=== PATIENT | female | born 1980 | race Caucasian/White ===

== ENCOUNTER → 2018-08-13 | Outpatient (CLI) | payer MEDICARE, BC, MEDICAID ==
--- NOTE | 2018-08-13 12:14 | Diagnostic Imaging Report ---
INDICATION: Pain. TECHNIQUE: Three views of the left knee were obtained. FINDINGS: The alignment is normal. There is no fracture or dislocation. The soft tissues are unremarkable. IMPRESSION: No focal abnormality in the left knee. Dictated by: Dictated on workstation # [id number]
== END ==
LOC: RAD FS 11:50
PROVIDERS: ATTEND Family Medicine
DX: S89.92XD Unspecified injury of left lower leg, subsequent encounter (principal)
CPT/HCPCS: 73562

== ENCOUNTER 2018-08-15 07:47 | Emergency (ER) | payer MEDICARE, BC, MEDICAID ==
[~2018-08-15] VITALS: Ht 157.5 cm; Wt 69.9 kg
--- OUTSIDE RECORDS SUMMARY | 2018-08-15 07:54 | XMS REPORT ---
Author Author KATHRIN ALEXANDER Organization [employer] Address Unknown Phone Unavailable Care Team Providers Care Street Vendor Name Role Phone KATHRIN ALEXANDER CP Unavailable Allergies No Known Allergies Problems Problem Type Condition ICD-9 Code Onset Dates Condition Status Assessment Dental examination V72.2 Active Medications No Known Medications Procedures Procedure Coding System Code Date INTRAORL-PERIAPICAL 1 FILM 17183 CPT-4 D0220 Jan 11, 2015 PANORAMIC FILM SEE ALSO CODE 73038 CPT-4 D0330 Jan 11, 2015 LTD ORAL EVALUATION - PROBLEM FOCUS CPT-4 D0140 Jan 11, 2015 Results No Known Results Summary Purpose [employer] Submission
--- NOTE | 2018-08-15 08:12 | ED Headache ---
General Stated Complaint: MIGRAINE History of Present Illness Date Seen by Provider: Aug 15, 2018 Time Seen by Provider: 07:57 38 y/o F with history of migraines since age 13 presents with a typical migraine for her that is located around her eyes, feels sharp and radiates along the scalp posteriorly. Headache woke her from sleep. Has associated nausea and vomited x 1. Nothing has improved headache, states every time she gets a migraine she has to come to the ER. Denies photophobia. This is not the worst headache of her life. Allergies and Home Medications Allergies Coded Allergies: zolmitriptan (Unverified Adverse Reaction, Unknown, 08/15/18) Patient Home Medication List Home Medication List Reviewed: Yes Review of Systems Review of Systems Constitutional: No chills, No fever, No weakness Eyes: Denies Blurred Vision, Denies Photophobia Ears, Nose, Mouth, Throat: denies ear pain, denies nose pain, denies mouth pain Respiratory: No cough, No short of breath Cardiovascular: No chest pain, No palpitations Gastrointestinal: No abdominal pain, No nausea, No vomiting Genitourinary: No dysuria, No hematuria Musculoskeletal: No joint pain, No muscle pain, No neck pain Psychiatric/Neurological: Headache; Denies Numbness, Denies Paresthesia, Denies Pre-Existing Deficit, Denies Seizure, Denies Tingling, Denies Tremors, Denies Weakness Past Yymdqag-Qsnoqa-Ayaapc Hx Past Med/Social Hx: Reviewed Nursing Past Med/Soc Hx Patient Social History Recent Foreign Travel: No Contact w/Someone Who Travel: No Physical Exam Vital Signs Capillary Refill : Height, Weight, BMI Height: '" Weight: lbs. oz. kg; BMI Method: General Appearance: WD/WN, no apparent distress HEENT: PERRL/EOMI, normal ENT inspection Neck: non-tender, full range of motion, supple, normal inspection, other (no meningismus) Cardiovascular: normal peripheral pulses, regular rate, rhythm, no edema, no gallop, no JVD, no murmur Respiratory: chest non-tender, lungs clear, normal breath sounds, no respiratory distress, no accessory muscle use Gastrointestinal: normal bowel sounds, non tender, soft, no organomegaly, no pulsatile mass Extremities: normal range of motion, normal inspection, no pedal edema, no calf tenderness, normal capillary refill Psychiatric: alert, oriented x 3 Crainal Nerves: normal hearing, normal speech, PERRL Coordination/Gait: normal finger to nose, normal gait Motor/Sensory: no motor deficit, no sensory deficit, no pronator drift Skin: normal color, warm/dry Progress/Results/Core Measures Results/Orders My Orders Orders - JEN ESCALERA MD Ketorolac Injection (Toradol Injection) (08/15/18 08:15) Dexamethasone Injection (Decadron Inject (08/15/18 08:15) Promethazine Injection (Phenergan Injec (08/15/18 08:15) Medications Given in ED Current Medications Medications Dose Ordered Sig/Hernan Route Start Time Stop Time Status Last Admin Dose Admin Dexamethasone Sodium Phosphate 8 mg ONCE ONCE IM 08/15/18 08:15 08/15/18 08:16 DC 08/15/18 08:20 8 MG Ketorolac Tromethamine 60 mg ONCE ONCE IM 08/15/18 08:15 08/15/18 08:16 DC 08/15/18 08:21 60 MG Promethazine HCl 25 mg ONCE ONCE IM 08/15/18 08:15 08/15/18 08:16 DC 08/15/18 08:20 25 MG Progress Progress Note : Progress Note Patient declines IV. States "they usually give me 3-4 shots in the arm", discussed that the IV would likely be fewer sticks and that we could give IV fluids and additional medications if the initial medications did not work, still refused. Departure Impression Primary Impression: Migraine Disposition: 01 HOME, SELF-CARE Condition: Stable Departure-Patient Inst. Decision time for Depature: 08:35 Referrals: [facility] (PCP) Primary Care Physician ANDREW DONAHUE MD (Family) Primary Care Physician Patient Instructions: Migraine Headache (DC) Add. Discharge Instructions: All discharge instructions reviewed with patient and/or family. Voiced understanding. JEN ESCALERA MD Aug 15, 2018 08:12
[2018-08-15] MEDS ORDERED: DEXAMETHASONE 4 MG/ML SDV (DECADRON) IM ONE (08:15)
[2018-08-15] MEDS ORDERED: PROMETHAZINE INJ 25 MG/ML (PHENERGAN) AMP IM ONE (08:15)
[2018-08-15] MEDS ORDERED: KETOROLAC 60 MG/2 ML VIAL IM ONE (08:15)
[2018-08-15 08:40] VITALS: BP 120/69
== END 2018-08-15 08:40 | disposition home or self-care (01) ==
LOC: EDUNIT# 07:47 → ER FS 07:50
DX: G43.909 Migraine, unspecified, not intractable, without status migrainosus (principal); Z88.8 Allergy status to other drugs, medicaments and biological substances
CPT/HCPCS: 99284

== ENCOUNTER 2018-09-11 08:16 | Emergency (ER) | payer MEDICARE, MEDICAID ==
[~2018-09-11] VITALS: Ht 160 cm; Wt 63.5 kg
--- NOTE | 2018-09-11 08:26 | ED Headache ---
General Stated Complaint: HEADACHE History of Present Illness Date Seen by Provider: Sep 11, 2018 Time Seen by Provider: 08:34 Initial Comments Patient presenting to ED for evaluation of a headache behind both eyes that has been going on for several days. She says she has a history of migraines and this feels exactly the same. Patient has nausea but no vomiting, fevers, chills , weakness, numbness, tingling, or neck stiffness. Patient is in no obvious distress with normal VS. Allergies and Home Medications Allergies Coded Allergies: zolmitriptan (Unverified Adverse Reaction, Unknown, 08/15/18) Patient Home Medication List Home Medication List Reviewed: Yes Review of Systems Review of Systems Constitutional: no symptoms reported All Other Systems Reviewed Negative Unless Noted: Yes Past Lmhyhdi-Ckgakd-Txvsge Hx Patient Social History Recent Hopitalizations: No Immunizations Up To Date Date of Influenza Vaccine: Mar 04, 2018 Seasonal Allergies Seasonal Allergies: Yes Past Medical History Surgeries: Yes Gallbladder Respiratory: No Cardiac: No Neurological: Yes Headaches /Migraines Genitourinary: No Gastrointestinal: No Musculoskeletal: Yes (RLS) HEENT: No Cancer: No Psychosocial: Yes Depression Integumentary: No Blood Disorders: No Physical Exam Vital Signs Vital Signs - First Documented 09/11/18 08:22 Temp 98.8 Pulse 97 Resp 20 B/P (MAP) 121/83 (96) Pulse Ox 99 Capillary Refill : Height, Weight, BMI Height: 5'2.00" Weight: 154lbs. oz. 69.258598cd; BMI Method:Stated General Appearance: WD/WN HEENT: PERRL/EOMI Neck: non-tender, full range of motion Cardiovascular: normal peripheral pulses, regular rate, rhythm Respiratory: no respiratory distress, no accessory muscle use Psychiatric: alert, oriented x 3 Skin: normal color, warm/dry Progress/Results/Core Measures Results/Orders My Orders Orders - JAM MARIE DO Promethazine Injection (Phenergan Injec (09/11/18 08:30) Dexamethasone Injection (Decadron Inject (09/11/18 08:30) Ketorolac Injection (Toradol Injection) (09/11/18 08:30) Diphenhydramine Tablet (Benadryl Tablet) (09/11/18 08:45) Vital Signs/I&O 4/10/19 08:22 Temp 98.8 Pulse 97 Resp 20 B/P (MAP) 121/83 (96) Pulse Ox 99 Progress Progress Note : Progress Note Patient is requesting same cocktail she received last time. She said she went home and slept and woke up better. I see no reason for further testing in ED. I told her to return with worsening pain, fevers, vomiting, or other general concerns. Departure Impression Primary Impression: Migraine Disposition: 01 HOME, SELF-CARE Condition: Stable Departure-Patient Inst. Decision time for Depature: 08:32 Referrals: [facility] (PCP) Primary Care Physician ANDREW DONAHUE MD (Family) Primary Care Physician Patient Instructions: Migraine Headache (DC) JAM MARIE DO Sep 11, 2018 08:26
[2018-09-11] MEDS ORDERED: DEXAMETHASONE 4 MG/ML SDV (DECADRON) IM ONE (08:30)
[2018-09-11] MEDS ORDERED: KETOROLAC 60 MG/2 ML VIAL IM ONE (08:30)
[2018-09-11] MEDS ORDERED: PROMETHAZINE INJ 25 MG/ML (PHENERGAN) AMP IM ONE (08:30)
[2018-09-11] MEDS ORDERED: diphenhydrAMINE 25 MG TAB (BENADRYL) PO ONE (08:45)
[2018-09-11 08:56] VITALS: BP 113/90
== END 2018-09-11 09:00 | disposition home or self-care (01) ==
LOC: EDUNIT# 08:16 → ER FS 08:17
DX: G43.909 Migraine, unspecified, not intractable, without status migrainosus (principal); G25.81 Restless legs syndrome; F32.9 Major depressive disorder, single episode, unspecified; Z88.8 Allergy status to other drugs, medicaments and biological substances
CPT/HCPCS: 99284

== ENCOUNTER 2018-09-18 06:18 | Emergency (ER) | payer MEDICARE, MEDICAID ==
[~2018-09-18] VITALS: Ht 160 cm; Wt 63.5 kg
--- NOTE | 2018-09-18 06:22 | ED Headache ---
General Stated Complaint: MIGRAINE Source: patient Exam Limitations: no limitations History of Present Illness Date Seen by Provider: Sep 18, 2018 Time Seen by Provider: 06:26 38 y/o F with history of migraines presents with typical migraine for her that started around 0530 this morning. She was at rest. This is not the worst headache of her life. It was gradual in onset and has been worsening in the frontal region without radiation. Improved with rest, worse with exertion and lights. Has associated photophobia and nausea. Denies fever, chills, neck pain or stiffness. Allergies and Home Medications Allergies Coded Allergies: zolmitriptan (Unverified Adverse Reaction, Unknown, 08/15/18) Patient Home Medication List Home Medication List Reviewed: Yes Review of Systems Review of Systems Constitutional: No chills, No dizziness, No fever, No weakness Eyes: Denies Blurred Vision; Photophobia Ears, Nose, Mouth, Throat: denies ear pain, denies nose discharge Respiratory: No cough, No short of breath Cardiovascular: No chest pain, No palpitations Gastrointestinal: No abdominal pain; nausea; No vomiting Genitourinary: No frequency, No hematuria Musculoskeletal: No muscle pain, No muscle weakness Skin: No lesions, No rash Psychiatric/Neurological: Headache; Denies Numbness Past Uaadrih-Urhasm-Yhgddj Hx Past Med/Social Hx: Reviewed Nursing Past Med/Soc Hx Patient Social History 2nd Hand Smoke Exposure: No Recent Foreign Travel: No Contact w/Someone Who Travel: No Recent Hopitalizations: No Immunizations Up To Date Date of Influenza Vaccine: Mar 04, 2018 Seasonal Allergies Seasonal Allergies: Yes Past Medical History Surgeries: Yes Gallbladder Respiratory: No Cardiac: No Neurological: Yes Headaches /Migraines Genitourinary: No Gastrointestinal: No Musculoskeletal: Yes (RLS) HEENT: No Cancer: No Psychosocial: Yes Depression Integumentary: No Blood Disorders: No Physical Exam Vital Signs Vital Signs - First Documented 09/18/18 06:36 Temp 97.8 Pulse 112 Resp 14 B/P (MAP) 107/85 (92) Pulse Ox 94 O2 Delivery Room Air Capillary Refill : Height, Weight, BMI Height: 5'3.00" Weight: 140lbs. oz. 63.451525pz; BMI Method:Stated General Appearance: WD/WN, no apparent distress HEENT: PERRL/EOMI, normal ENT inspection, TMs normal, pharynx normal Neck: non-tender, full range of motion, supple, normal inspection Cardiovascular: regular rate, rhythm, no edema, no gallop, no JVD, no murmur Respiratory: chest non-tender, lungs clear, normal breath sounds, no respiratory distress, no accessory muscle use Gastrointestinal: normal bowel sounds, non tender, soft, no organomegaly, no pulsatile mass Extremities: normal range of motion, non-tender, normal inspection, no pedal edema, no calf tenderness Psychiatric: alert, oriented x 3 Crainal Nerves: normal hearing, normal speech, PERRL Coordination/Gait: normal finger to nose, normal gait Motor/Sensory: no motor deficit, no sensory deficit, no pronator drift Skin: normal color, warm/dry Progress/Results/Core Measures Results/Orders My Orders Orders - JEN ESCALERA MD Ketorolac Injection (Toradol Injection) (09/18/18 06:45) Dexamethasone Injection (Decadron Inject (09/18/18 06:45) Promethazine Injection (Phenergan Injec (09/18/18 06:45) Diphenhydramine Injection (Benadryl Inje (09/18/18 06:45) Medications Given in ED Current Medications Medications Dose Ordered Sig/Hernan Route Start Time Stop Time Status Last Admin Dose Admin Dexamethasone Sodium Phosphate 8 mg ONCE ONCE IM 09/18/18 06:45 09/18/18 06:46 DC 09/18/18 06:51 8 MG Diphenhydramine HCl 25 mg ONCE ONCE IM 09/18/18 06:45 09/18/18 06:46 DC 09/18/18 06:51 25 MG Ketorolac Tromethamine 60 mg ONCE ONCE IM 09/18/18 06:45 09/18/18 06:46 DC 09/18/18 06:51 60 MG Promethazine HCl 25 mg ONCE ONCE IM 09/18/18 06:45 09/18/18 06:46 DC 09/18/18 06:51 25 MG Vital Signs/I&O 09/18/18 09/18/18 06:36 07:15 Temp 97.8 97.8 Pulse 112 90 Resp 14 16 B/P (MAP) 107/85 (92) 104/81 (89) Pulse Ox 94 96 O2 Delivery Room Air Departure Impression Primary Impression: Migraine headache Disposition: 01 HOME, SELF-CARE Condition: Improved Departure-Patient Inst. Decision time for Depature: 06:40 Referrals: [facility] (PCP) Primary Care Physician ANDREW DONAHUE MD (Family) Primary Care Physician Patient Instructions: Migraine Headaches in Adults JEN ESCALERA MD Sep 18, 2018 06:22
[2018-09-18] MEDS ORDERED: PROMETHAZINE INJ 25 MG/ML (PHENERGAN) AMP IM ONE (06:45)
[2018-09-18] MEDS ORDERED: diphenhydrAMINE 50 MG/ML INJ (BENADRYL) IM ONE (06:45)
[2018-09-18] MEDS ORDERED: KETOROLAC 60 MG/2 ML VIAL IM ONE (06:45)
[2018-09-18] MEDS ORDERED: DEXAMETHASONE 4 MG/ML SDV (DECADRON) IM ONE (06:45)
[2018-09-18 07:15] VITALS: BP 104/81
--- NOTE | 2018-09-18 07:15 | NUR ---
ACTUAL DISCHARGE PER THIS RN.
== END 2018-09-18 07:15 | disposition home or self-care (01) ==
LOC: EDUNIT# 06:18 → ER FS 06:20
DX: G43.909 Migraine, unspecified, not intractable, without status migrainosus (principal); F32.9 Major depressive disorder, single episode, unspecified; G25.81 Restless legs syndrome; Z88.8 Allergy status to other drugs, medicaments and biological substances; Z98.890 Other specified postprocedural states
CPT/HCPCS: 99284

== ENCOUNTER 2018-10-12 03:34 | Emergency (ER) | payer MEDICARE ==
[~2018-10-12] VITALS: Ht 160 cm; Wt 73.5 kg
--- OUTSIDE RECORDS SUMMARY | 2018-10-12 03:40 | XMS REPORT | Continuity of Care Document ---
Author Organization Unknown Address Unknown Allergies There is no data. Medications There is no data. Problems There is no data. Procedures There is no data. Results There is no data. Encounters ACCT No. Visit Date/Time Discharge Status Pt. Type Provider Facility Loc./Unit Complaint [id number] 09/26/2018 11:15:00 09/26/2018 23:59:59 CLS Outpatient SELF, ANDREW DEMPSEY [facility]
[2018-10-12] MEDS ORDERED: KETOROLAC 60 MG/2 ML VIAL IM ONE (04:30)
[2018-10-12] MEDS ORDERED: PROCHLORPERAZINE 10 MG/2ML INJ (COMPAZINE) IM ONE (04:30)
[2018-10-12] MEDS ORDERED: diphenhydrAMINE 50 MG/ML INJ (BENADRYL) IM ONE (04:30)
--- NOTE | 2018-10-12 04:33 | ED Headache ---
General Chief Complaint: Head/Cervical Problems Stated Complaint: MIGRAINE Nursing Triage Note: Patient states her migraine started at 0030 todays date. Patient took zofran. Nursing Sepsis Screen: No Definite Risk Source: patient History of Present Illness Date Seen by Provider: October 12, 2018 Time Seen by Provider: 04:00 Initial Comments Patient is a 38-year-old female with history of frequent migraine headaches currently on Topamax suppressive therapy presents with typical migraine headache starting 4 hours prior to ED arrival. Headache is described as dull, throbbing, and is retro-orbital in location. It is associated with nausea without vomiting. Patient states she typically gets dizzy with migraines and is currently experiencing mild dizziness vertigo. Likely migraine triggers include weather and monthly menstrual cycle which patient is currently on. Patient took Zofran, Excedrin Migraine and nasal spray prior to arrival without improvement. No neck pain, fever, rash, focal neurologic deficits. Patient's been seen in the ED multiple times the past 2 months for the same. Timing/Duration: 4-6 hours Severity/Quality: mild Location: other (retro-orbital) Prior Headaches/Recent Trauma: frequent headaches Associated Symptoms: denies symptoms Allergies and Home Medications Allergies Coded Allergies: zolmitriptan (Unverified Adverse Reaction, Unknown, 08/15/18) Patient Home Medication List Home Medication List Reviewed: Yes Review of Systems Review of Systems Constitutional: see HPI Eyes: See HPI Ears, Nose, Mouth, Throat: see HPI Respiratory: see HPI Cardiovascular: see HPI Genitourinary: see HPI Musculoskeletal: see HPI Skin: see HPI Psychiatric/Neurological: Depressed Past Dlndelb-Jrztxj-Flpejo Hx Past Med/Social Hx: Reviewed Nursing Past Med/Soc Hx Patient Social History Alcohol Use: Denies Use Recreational Drug Use: No Smoking Status: Never a Smoker Type Used: Cigarettes Former Smoker, Quit: October 17, 2017 2nd Hand Smoke Exposure: No Recent Foreign Travel: No Contact w/Someone Who Travel: No Recent Infectious Disease Expo: No Recent Hopitalizations: No Physical Abuse: No Sexual Abuse: No Mistreated: No Fear: No Immunizations Up To Date Date of Influenza Vaccine: Mar 04, 2018 Seasonal Allergies Seasonal Allergies: Yes Past Medical History Surgeries: Yes Gallbladder Respiratory: No Cardiac: No Neurological: Yes Headaches /Migraines Genitourinary: No Gastrointestinal: No Musculoskeletal: Yes (RLS) Endocrine: No HEENT: No Cancer: No Psychosocial: Yes Depression Integumentary: No Blood Disorders: No Physical Exam Vital Signs Vital Signs - First Documented 10/12/18 03:39 Temp 98.1 Pulse 103 Resp 18 B/P (MAP) 120/78 (92) Pulse Ox 98 O2 Delivery Room Air Capillary Refill : Less Than 3 Seconds Height, Weight, BMI Height: 5'3.00" Weight: 162lbs. 0oz. 73.750278sq; BMI Method:Stated General Appearance: WD/WN, no apparent distress HEENT: PERRL/EOMI, normal ENT inspection Neck: non-tender, full range of motion, supple Cardiovascular: normal peripheral pulses Respiratory: lungs clear, normal breath sounds Psychiatric: alert, oriented x 3 Motor/Sensory: no motor deficit, no sensory deficit, other ([place] steady gait) Skin: normal color, warm/dry Progress/Results/Core Measures Results/Orders My Orders Orders - DARCI ECHOLS DO Ketorolac Injection (Toradol Injection) (10/12/18 04:30) Diphenhydramine Injection (Benadryl Inje (10/12/18 04:30) Prochlorperazine Injection (Compazine In (10/12/18 04:30) Vital Signs/I&O 10/12/18 03:39 Temp 98.1 Pulse 103 Resp 18 B/P (MAP) 120/78 (92) Pulse Ox 98 O2 Delivery Room Air Blood Pressure Mean: 92 Departure Communication (Admissions) Typical migraine headache. Toradol, Compazine and Benadryl given with improvement Impression Primary Impression: Migraine Disposition: 01 HOME, SELF-CARE Condition: Improved Departure-Patient Inst. Referrals: [facility] (PCP) Primary Care Physician ANDREW DONAHUE MD (Family) Primary Care Physician Patient Instructions: Migraine Headache (DC) Add. Discharge Instructions: Please go home and rest and follow up with PCP for further management of migraine headaches All discharge instructions reviewed with patient and/or family. Voiced understanding. DARCI ECHOLS DO October 12, 2018 04:33
[2018-10-12 04:47] VITALS: BP 120/78
== END 2018-10-12 04:43 | disposition home or self-care (01) ==
LOC: EDUNIT# 03:34 → ER FS 03:35
DX: G43.909 Migraine, unspecified, not intractable, without status migrainosus (principal); G25.81 Restless legs syndrome; F32.9 Major depressive disorder, single episode, unspecified; Z88.8 Allergy status to other drugs, medicaments and biological substances; Z87.891 Personal history of nicotine dependence; Z98.890 Other specified postprocedural states
CPT/HCPCS: 96372; 99284

== ENCOUNTER 2018-11-23 06:57 | Emergency (ER) | payer MEDICARE ==
[~2018-11-23] VITALS: Ht 160 cm; Wt 73.5 kg
--- OUTSIDE RECORDS SUMMARY | 2018-11-23 07:03 | XMS REPORT ---
Author Author DA WALLS 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 Name Role Phone KAVITANITHYARY Unavailable PROBLEMS Type Condition ICD9-CM Code JNF60-HB Code Onset Dates Condition Status SNOMED Code Problem RLS (restless legs syndrome) G25.81 Active 38979338 Problem Hypokalemia E87.6 Active 32365365 Problem Thrombocytopenia D69.6 Active 443910659 Problem Hirsutism L68.0 Active 599280138 Problem Migraine with aura and without status migrainosus, not intractable G43.109 Active 1317365 Problem Other chronic pain G89.29 Active 64306492 Problem Seasonal allergic reaction J30.2 Active 417441846 Problem Migraine headache G43.909 Active 35301419 Problem Allergic rhinitis J30.9 Active 96228263 Problem Depression F32.9 Active 68390529 Problem Hypothyroidism E03.9 Active 22009334 ALLERGIES No Information ENCOUNTERS Encounter Location Date Diagnosis [address] [address] Jan, [address] [address] Sep, Migraine headache G43.[address] [address] Sep, Migraine headache G43.909 ; Impacted cerumen of left ear H61.22 and Migraine with aura and without status migrainosus, not intractable G43.109 [facility] [address] [facility] [id number] [address] Sep, [address] [address] Sep, Pain in left knee M25.562 and Other chronic pain G89.29 [facility] [address] [address] Sep, [facility] [address] [facility] [id number] [place] [address] Sep, RLS (restless legs syndrome) G25.81 [facility] [address] [place] [address] Aug, Acute pain of left knee M25.562 and RLS (restless legs syndrome) G25.81 [facility] [address] [address] Aug, [address] [address] Aug, RLS (restless legs syndrome) G25.81 and Acute pain of left knee M25.562 [facility] [place] [address] [address] Aug, [facility] [address] [address] Aug, [facility] [address] [place] [address] Aug, Migraine G43.[address] [address] Aug, Depression F32.9 ; Migraine headache G43.909 ; Migraine with aura and without status migrainosus, not intractable G43.109 ; Seasonal allergic reaction J30.2 ; Hypothyroidism E03.9 ; RLS (restless legs syndrome) G25.81 ; Allergic rhinitis J30.9 ; Hirsutism L68.0 ; Thrombocytopenia D69.6 ; Hypokalemia E87.6 and Injury of left knee, subsequent encounter S89.92XD [facility] [address] [place] [address] Aug, [facility] [place] [address] [address] Aug, Left leg pain M79.605 [facility] [address] [place] [address] Aug, [facility] [address] [place] [address] Aug, Left leg pain M79.605 and RLS (restless legs syndrome) G25.[address] [address] Jul, Migraine with aura and without status migrainosus, not intractable G43.109 ; Seasonal allergic reaction J30.2 and Hypokalemia E87.6 [facility] [address] [facility] [id number] [place] [id number] Jan, Dental examination V72.2 IMMUNIZATIONS No Known Immunizations SOCIAL HISTORY Never Assessed REASON FOR VISIT PLAN OF CARE VITAL SIGNS MEDICATIONS Unknown Medications RESULTS No Results PROCEDURES No Known procedures INSTRUCTIONS MEDICATIONS ADMINISTERED No Known Medications MEDICAL (GENERAL) HISTORY Type Description Date Medical History drug seeking behavior Medical History Depression Medical History Migraine headache Medical History Hypothyroidism Medical History Allergic rhinitis Medical History Hirsutism Medical History Thrombocytopenia Medical History Hypokalemia Surgical History cholecystectomy 2018 Surgical History EGD Hospitalization History problems with stomach
--- OUTSIDE RECORDS SUMMARY | 2018-11-23 07:03 | XMS REPORT | Continuity of Care Document ---
Author Organization Unknown Address Unknown Allergies Active Description Code Type Severity Reaction Onset Reported/Identified Relationship to Patient Clinical Status Yes zolmitriptan [id number] Drug Allergy Unknown N/A 08/15/2018 Medications There is no data. Problems Date Dx Coded Attending Type Code Diagnosis Diagnosed By 08/14/2018 ANDREW DONAHUE MD, Ot S89.92XD UNSPECIFIED INJURY OF LEFT LOWER LEG, MCNEAL 08/15/2018 JEN ESCALERA MD Ot G43.909 MIGRAINE, UNSP, NOT INTRACTABLE, WITHOUT 08/15/2018 JEN ESCALERA MD Ot Z88.8 ALLERGY STATUS TO OTH DRUG/MEDS/BIOL SUB 08/19/2018 JEN ESCALERA MD Ot G43.909 MIGRAINE, UNSP, NOT INTRACTABLE, WITHOUT 08/19/2018 JEN ESCALERA MD Ot Z88.8 ALLERGY STATUS TO OTH DRUG/MEDS/BIOL SUB 08/22/2018 ANDREW DONAHUE MD Ot S89.92XD UNSPECIFIED INJURY OF LEFT LOWER LEG, MCNEAL 08/24/2018 JEN ESCALERA MD Ot G43.909 MIGRAINE, UNSP, NOT INTRACTABLE, WITHOUT 08/24/2018 JEN ESCALERA MD Ot Z88.8 ALLERGY STATUS TO OTH DRUG/MEDS/BIOL SUB 08/27/2018 ANDREW DONAHUE MD Ot S89.92XD UNSPECIFIED INJURY OF LEFT LOWER LEG, MCNEAL 08/28/2018 ANDREW DONAHUE MD, Ot S89.92XD UNSPECIFIED INJURY OF LEFT LOWER LEG, MCNEAL 09/11/2018 JAM MARIE DO Ot F32.9 MAJOR DEPRESSIVE DISORDER, SINGLE EPISOD 09/11/2018 JAM MARIE DO Ot G25.81 RESTLESS LEGS SYNDROME 09/11/2018 JAM MARIE DO, Ot G43.909 MIGRAINE, UNSP, NOT INTRACTABLE, WITHOUT 09/11/2018 JAM MARIE DO Ot R51 HEADACHE 09/11/2018 JAM MARIE DO Ot Z88.8 ALLERGY STATUS TO OTH DRUG/MEDS/BIOL SUB 09/13/2018 JAM MARIE DO Ot F32.9 MAJOR DEPRESSIVE DISORDER, SINGLE EPISOD 09/13/2018 JAM MARIE DO Ot G25.81 RESTLESS LEGS SYNDROME 09/13/2018 JAM MARIE DO Alejandro Ot G43.909 MIGRAINE, UNSP, NOT INTRACTABLE, WITHOUT 09/13/2018 FRANK SALAZAR JAM Allen Ot R51 HEADACHE 09/13/2018 JAM MARIE DO Ot Z88.8 ALLERGY STATUS TO OTH DRUG/MEDS/BIOL SUB 09/18/2018 JW BOLIVAR, JEN Allen Ot F32.9 MAJOR DEPRESSIVE DISORDER, SINGLE EPISOD 09/18/2018 JEN ESCALERA MD Ot G25.81 RESTLESS LEGS SYNDROME 09/18/2018 JEN ESCALERA MD Ot G43.909 MIGRAINE, UNSP, NOT INTRACTABLE, WITHOUT 09/18/2018 JEN ESCALERA MD Ot Z88.8 ALLERGY STATUS TO OTH DRUG/MEDS/BIOL SUB 09/18/2018 JEN ESCALERA MD Ot Z98.890 OTHER SPECIFIED POSTPROCEDURAL STATES 09/20/2018 JW BOLIVAR, JEN Allen Ot F32.9 MAJOR DEPRESSIVE DISORDER, SINGLE EPISOD 09/20/2018 JEN ESCALERA MD Ot G25.81 RESTLESS LEGS SYNDROME 09/20/2018 JW BOLIVAR, JEN Allen Ot G43.909 MIGRAINE, UNSP, NOT INTRACTABLE, WITHOUT 09/20/2018 JW BOLIVAR, JEN Allen Ot Z88.8 ALLERGY STATUS TO OTH DRUG/MEDS/BIOL SUB 09/20/2018 JW BOLIVAR, JEN Allen Ot Z98.890 OTHER SPECIFIED POSTPROCEDURAL STATES 10/12/2018 DARCI AGUERO DO Ot F32.9 MAJOR DEPRESSIVE DISORDER, SINGLE EPISOD 10/12/2018 ONESIMO SALAZAR DARCI Ot G25.81 RESTLESS LEGS SYNDROME 10/12/2018 ONESIMO SALAZAR DARCI Ot G43.909 MIGRAINE, UNSP, NOT INTRACTABLE, WITHOUT 10/12/2018 DARCI AGUERO DO Ot Z87.891 PERSONAL HISTORY OF NICOTINE DEPENDENCE 10/12/2018 ONESIMO SALAZAR DARCI Ot Z88.8 ALLERGY STATUS TO OTH DRUG/MEDS/BIOL SUB 10/12/2018 ONESIMO SALAZAR DARCI Ot Z98.890 OTHER SPECIFIED POSTPROCEDURAL STATES 10/16/2018 DARCI AGUERO DO Ot F32.9 MAJOR DEPRESSIVE DISORDER, SINGLE EPISOD 10/16/2018 DARCI AGUERO DO Ot G25.81 RESTLESS LEGS SYNDROME 10/16/2018 DARCI AGUERO DO Ot G43.909 MIGRAINE, UNSP, NOT INTRACTABLE, WITHOUT 10/16/2018 DARCI AGUERO DO Ot Z87.891 PERSONAL HISTORY OF NICOTINE DEPENDENCE 10/16/2018 DARCI AGUERO DO Ot Z88.8 ALLERGY STATUS TO OTH DRUG/MEDS/BIOL SUB 10/16/2018 DARCI AGUERO DO Ot Z98.890 OTHER SPECIFIED POSTPROCEDURAL STATES Procedures There is no data. Results Test Result Range HEP B SURFACE ANTIGEN - 11/18/18 11:17 HEPATITIS B SURFACE ANTIGEN NON-REACTIVE NON-REACTIVE Encounters ACCT No. Visit Date/Time Discharge Status Pt. Type Provider Facility Loc./Unit Complaint [id number] 11/18/2018 11:00:00 11/18/2018 23:59:59 ADY Outpatient ANDREW DONAHUE [facility] [id number] 11/18/2018 11:00:00 Document Registration [id number] 10/12/2018 03:35:00 10/12/2018 04:43:00 DIS Emergency DARCI AGUERO DO [facility] ER FS MIGRAINE [id number] 09/18/2018 06:20:00 09/18/2018 07:15:00 DIS Emergency JEN ESCALERA MD [facility] ER FS MIGRAINE [id number] 09/11/2018 08:17:00 09/11/2018 09:00:00 DIS Emergency JAM MARIE DO [facility] ER FS HEADACHE [id number] 08/15/2018 07:50:00 08/15/2018 08:40:00 DIS Emergency JEN ESCALERA MD [facility] ER FS MIGRAINE [id number] 08/13/2018 11:50:00 08/13/2018 23:59:59 CLS Outpatient SELF ANDREW BOLIVAR [facility] RAD FS S89.92XD
[2018-11-23] MEDS ORDERED: PROC-1 PO (07:34)
[2018-11-23 07:44] VITALS: BP 125/73
--- NOTE | 2018-11-23 07:44 | NUR ---
Pt discharged to home after Dr Aguero spoke extensively with patient. Pt had reported to RN and she could get medication we want to give as she has a local company refrigerated truck driver with her. Pt has a significant other here as a patient also complaining of pain and wanting pain shots. approached pt that SO reports she is the local company refrigerated truck driver for him to get pain shots and now the stories aren't matching. Pt received recommendations typed with her discharge plan and Rx for Compazine. reports she can self treat at home after driving. Pt becomes very upset and reports having no money to buy any medicine at all. educated patient on her f/u with PCP and discussion of migraine management with them.
--- NOTE | 2018-11-23 12:36 | ED Headache ---
General Chief Complaint: Head/Cervical Problems Stated Complaint: MIGRAINE Nursing Triage Note: Pt reports headache starting lst night. Pt states, "Have a migraine and I usually have pain 8-9 and mild nausea and get 3 shots when I come." Pt reports trying Excedrin migraine. Nursing Sepsis Screen: No Definite Risk Source: patient History of Present Illness Date Seen by Provider: Nov 23, 2018 Time Seen by Provider: 07:15 Initial Comments Patient is a 38-year-old female with history of chronic migraines presents with migraine-like headache. Patient states symptoms began 5 hours prior to ED arrival. Patient took Excedrin Migraine without relief of symptoms. Her reports retro-orbital throbbing, mild nausea and light and sound sensitivity. This is not the worst headache of the patient's life. No fever chills or sweats, no neck pain or rash. Extremity weakness or loss of sensation. No recent insect or tick bites. No other acute symptoms or complaints. Patient's last menstrual period was 2 weeks ago. Patient drove to the ED. Timing/Duration: 4-6 hours Severity/Quality: moderate Location: frontal Prior Headaches/Recent Trauma: no recent headache/trauma, frequent headaches Modifying Factors: improves with medication Associated Symptoms: nausea/vomiting Allergies and Home Medications Allergies Coded Allergies: zolmitriptan (Unverified Adverse Reaction, Unknown, 08/15/18) Home Medications Prochlorperazine Maleate 10 Mg Tablet, 10 MG PO Q8H Prescribed by: DARCI ECHOLS on 11/23/18 0734 Patient Home Medication List Home Medication List Reviewed: Yes Review of Systems Review of Systems Constitutional: no symptoms reported, see HPI Eyes: See HPI Ears, Nose, Mouth, Throat: no symptoms reported Respiratory: no symptoms reported Gastrointestinal: no symptoms reported Genitourinary: no symptoms reported Musculoskeletal: no symptoms reported Skin: no symptoms reported Psychiatric/Neurological: See HPI, Anxiety Past Tylrfur-Jbyjvp-Evrisi Hx Past Med/Social Hx: Reviewed Nursing Past Med/Soc Hx Patient Social History Alcohol Use: Denies Use Recreational Drug Use: No Smoking Status: Never a Smoker Type Used: Cigarettes Former Smoker, Quit: October 17, 2017 2nd Hand Smoke Exposure: No Recent Foreign Travel: No Contact w/Someone Who Travel: No Recent Infectious Disease Expo: No Recent Hopitalizations: No Physical Abuse: No Sexual Abuse: No Mistreated: No Fear: No Immunizations Up To Date Date of Influenza Vaccine: Mar 04, 2018 Seasonal Allergies Seasonal Allergies: Yes Past Medical History Surgeries: Yes Gallbladder Respiratory: No Cardiac: No Neurological: Yes Headaches /Migraines Genitourinary: No Gastrointestinal: No Musculoskeletal: Yes (RLS) Endocrine: No HEENT: No Cancer: No Psychosocial: Yes Depression Integumentary: No Blood Disorders: No Physical Exam Vital Signs Vital Signs - First Documented 11/23/18 11/23/18 07:05 07:44 Temp 98.4 Pulse 96 Resp 20 B/P (MAP) 125/73 (90) Pulse Ox 100 O2 Delivery Room Air Capillary Refill : Less Than 3 Seconds Height, Weight, BMI Height: 5'3.00" Weight: 162lbs. 0oz. 73.067513eo; BMI Method:Stated General Appearance: no apparent distress HEENT: PERRL/EOMI, normal ENT inspection, TMs normal, pharynx normal, other Neck: non-tender, full range of motion, supple Cardiovascular: regular rate, rhythm, no edema Respiratory: chest non-tender, lungs clear, normal breath sounds, no respiratory distress Gastrointestinal: non tender Back: no CVA tenderness Extremities: normal range of motion, non-tender Psychiatric: alert, oriented x 3 Crainal Nerves: normal speech, PERRL Coordination/Gait: normal gait Motor/Sensory: no motor deficit, no sensory deficit Skin: normal color, warm/dry Progress/Results/Core Measures Results/Orders Vital Signs/I&O 11/23/18 11/23/18 07:05 07:44 Temp 98.4 98.4 Pulse 96 96 Resp 20 20 B/P (MAP) 125/73 (90) 125/73 (90) Pulse Ox 100 O2 Delivery Room Air Room Air Blood Pressure Mean: 90 Departure Communication (Admissions) Patient drove herself to the emergency department and was seen getting out of her car. She states that she was dropped off. She is requesting medications that are sedating. Upon questioning, patient states she lied but would get a ride home. I am uncomfortable with this response as I doubt the patient will comply and find a flatbed truck driver. Patient discharged with prescription for Zofran and instruction to take Tylenol and Benadryl upon returning home. She is instructed to follow-up with her PCP. Impression Primary Impression: Chronic migraine Disposition: 01 HOME, SELF-CARE Condition: Improved Departure-Patient Inst. Patient Instructions: Migraine Headache (DC) Add. Discharge Instructions: Fill perscritpion for compazine. Take 25 mg of benadryl, 650 mg of Tylenol and 10 mg of Compazine upon returning home. Repeat in 8 hours as needed. All discharge instructions reviewed with patient and/or family. Voiced unders tanding. Scripts Prochlorperazine Maleate (Compazine) 10 Mg Tablet 10 MG PO Q8H, #5 TAB Prov: DARCI ECHOLS DO 11/23/18 DARCI ECHOLS DO Nov 23, 2018 12:36
== END 2018-11-23 07:44 | disposition home or self-care (01) ==
LOC: EDUNIT# 06:57 → ER FS 06:59
DX: G43.709 Chronic migraine without aura, not intractable, without status migrainosus (principal); F32.9 Major depressive disorder, single episode, unspecified; Z88.8 Allergy status to other drugs, medicaments and biological substances
CPT/HCPCS: 99282

== ENCOUNTER 2018-12-23 06:11 | Emergency (ER) | payer MEDICARE | END 2018-12-23 06:48 | disposition home or self-care (01) | LOC: ER FS 06:11 ==

== ENCOUNTER 2019-01-20 09:05 | Emergency (ER) | payer MEDICARE, MEDICAID ==
[~2019-01-20] VITALS: Ht 160 cm; Wt 72.6 kg
[~2019-01-20 09:05] MED LIST: PROC-1 PO
--- NOTE | 2019-01-20 09:23 | NUR ---
To waiting room calling patient name, significant other states she went into the clinic area to use a bathroom.
--- NOTE | 2019-01-20 09:28 | NUR ---
Pt returned to waiting room and brought to ED 5 ambulatory. See triage/hx. Pt states N/V since Sunday. No BM in 2 days.
--- NOTE | 2019-01-20 09:30 | NUR ---
Pt into bathroom, unable to void.
--- NOTE | 2019-01-20 09:48 | ED GI ---
General Chief Complaint: Abdominal/GI Problems Stated Complaint: VOMITING Source of Information: Patient Exam Limitations: No Limitations History of Present Illness Date Seen by Provider: Jan 20, 2019 Time Seen by Provider: 09:40 Initial Comments This 38-year-old white female presents with constipation of 2 days' duration. The patient also relates that she has had nausea and vomiting for the last 2 days. The patient denies fever, chills, hematemesis, black or tarry stools, associated dysuria or flank pain, headache, stiff neck, or photophobia. The patient states that there has been no one ill at home. The patient has had long-standing intermittent constipation for which she uses Miralax. Allergies and Home Medications Allergies Coded Allergies: zolmitriptan (Unverified Adverse Reaction, Unknown, 08/15/18) Home Medications Prochlorperazine Maleate 10 Mg Tablet, 10 MG PO Q8H Prescribed by: DARCI ECHOLS on 11/23/18 0734 Patient Home Medication List Home Medication List Reviewed: Yes Review of Systems Review of Systems Constitutional: No chills EENTM: No Blurred Vision Respiratory: Denies Cough Cardiovascular: Denies Chest Pain Gastrointestinal: See HPI, Abdominal Pain, Constipated, Nausea, Vomiting Genitourinary: Denies Burning, Denies Drainage, Denies Frequency, Denies Flank Pain Musculoskeletal: No back pain Skin: no symptoms reported Psychiatric/Neurological: No Symptoms Reported Endocrine: No Symptoms Reported Hematologic/Lymphatic: No Symptoms Reported Past Utqmyxs-Usfnop-Ylvbfv Hx Past Med/Social Hx: Reviewed Nursing Past Med/Soc Hx Patient Social History Type Used: Cigarettes Former Smoker, Quit: October 17, 2017 2nd Hand Smoke Exposure: No Recent Hopitalizations: No Immunizations Up To Date Date of Influenza Vaccine: Mar 04, 2018 Seasonal Allergies Seasonal Allergies: Yes Past Medical History Surgeries: Yes Gallbladder Respiratory: No Cardiac: No Neurological: Yes Headaches /Migraines Genitourinary: No Gastrointestinal: No Musculoskeletal: Yes (RLS) Endocrine: No HEENT: No Cancer: No Psychosocial: Yes Depression Integumentary: No Blood Disorders: No Physical Exam Vital Signs Vital Signs - First Documented 01/20/19 09:28 Temp 98.8 Pulse 128 Resp 16 B/P (MAP) 123/92 (102) Pulse Ox 96 O2 Delivery Room Air Capillary Refill : Height/Weight/BMI Height: 5'3.00" Weight: 162lbs. 0oz. 73.265505yq; BMI Method:Stated General Appearance: WD/WN, no apparent distress HEENT: normal ENT inspection Neck: normal inspection Respiratory: normal breath sounds, no respiratory distress Cardiovascular: regular rate, rhythm, no murmur Gastrointestinal: normal bowel sounds, non tender, soft Extremities: normal range of motion, non-tender, normal inspection Back: normal inspection Neurologic/Psychiatric: no motor/sensory deficits, alert Skin: normal color, warm/dry Progress/Results/Core Measures Results/Orders Lab Results Laboratory Tests Test 01/20/19 09:55 01/20/19 12:12 Range/Units White Blood Count 14.3 H 4.3-11.0 10^3/uL Red Blood Count 4.45 4.35-5.85 10^6/uL Hemoglobin 10.1 L 11.5-16.0 G/DL Hematocrit 35 35-52 % Mean Corpuscular Volume 78 L 80-99 FL Mean Corpuscular Hemoglobin 23 L 25-34 PG Mean Corpuscular Hemoglobin Concent 29 L 32-36 G/DL Red Cell Distribution Width 15.4 H 10.0-14.5 % Platelet Count 472 H 130-400 10^3/uL Mean Platelet Volume 8.7 7.4-10.4 FL Neutrophils (%) (Auto) 79 H 42-75 % Lymphocytes (%) (Auto) 14 12-44 % Monocytes (%) (Auto) 6 0-12 % Eosinophils (%) (Auto) 1 0-10 % Basophils (%) (Auto) 0 0-10 % Neutrophils # (Auto) 11.3 H 1.8-7.8 X 10^3 Lymphocytes # (Auto) 2.0 1.0-4.0 X 10^3 Monocytes # (Auto) 0.8 0.0-1.0 X 10^3 Eosinophils # (Auto) 0.1 0.0-0.3 10^3/uL Basophils # (Auto) 0.0 0.0-0.1 10^3/uL Neutrophils % (Manual) 84 % Lymphocytes % (Manual) 11 % Monocytes % (Manual) 1 % Eosinophils % (Manual) 3 % Basophils % (Manual) 0 % Band Neutrophils 1 % Sodium Level 139 135-145 MMOL/L Potassium Level 4.0 3.6-5.0 MMOL/L Chloride Level 104 98-107 MMOL/L Carbon Dioxide Level 16 L 21-32 MMOL/L Anion Gap 19 H 5-14 MMOL/L Blood Urea Nitrogen 25 H 7-18 MG/DL Creatinine 0.87 0.60-1.30 MG/DL Estimat Glomerular Filtration Rate > 60 BUN/Creatinine Ratio 29 Glucose Level 117 H 70-105 MG/DL Calcium Level 9.1 8.5-10.1 MG/DL Corrected Calcium 9.1 8.5-10.1 MG/DL Total Bilirubin 0.2 0.1-1.0 MG/DL Aspartate Amino Transf (AST/SGOT) 15 5-34 U/L Alanine Aminotransferase (ALT/SGPT) 8 0-55 U/L Alkaline Phosphatase 151 H 40-136 U/L Total Protein 7.2 6.4-8.2 GM/DL Albumin 4.0 3.2-4.5 GM/DL Lipase 21 8-78 U/L Serum Test, Qualitative NEGATIVE NEGATIVE Urine Color YELLOW Urine Clarity SLT CLOUDY Urine pH 6.0 5-9 Urine Specific [place] 1.025 H 1.016-1.022 Urine Protein NEGATIVE NEGATIVE Urine Glucose (UA) NEGATIVE NEGATIVE Urine Ketones TRACE H NEGATIVE Urine Nitrite NEGATIVE NEGATIVE Urine Bilirubin NEGATIVE NEGATIVE Urine Urobilinogen 0.2 NORMAL MG/DL Urine Leukocyte Esterase 2+ H NEGATIVE Urine RBC (Auto) NEGATIVE NEGATIVE Urine RBC RARE /HPF Urine WBC 10-25 H /HPF Urine Squamous Epithelial Cells 5-10 /HPF Urine Crystals NONE /LPF Urine Bacteria MODERATE H /HPF Urine Casts NONE /LPF Urine Mucus SMALL H /LPF Urine Culture Indicated YES My Orders Orders - CHELY BERGMAN MD Acute Abd Series (01/20/19 09:39) Comprehensive Metabolic Panel (01/20/19 09:39) Cbc With Automated Diff (01/20/19 09:39) Ua Culture If Indicated (01/20/19 09:39) Urine Bedside (01/20/19 09:39) Lipase (01/20/19 09:39) Hcg,Qualitative Serum (01/20/19 10:10) Manual Differential (01/20/19 09:55) Ns Iv 1000 Ml (Sodium Chloride 0.9%) (01/20/19 10:45) Ns Iv 1000 Ml (Sodium Chloride 0.9%) (01/20/19 10:35) Urine Culture (01/20/19 12:12) Vital Signs/I&O 01/20/19 09:28 Temp 98.8 Pulse 128 Resp 16 B/P (MAP) 123/92 (102) Pulse Ox 96 O2 Delivery Room Air Progress Progress Note : Time: 12:16 Progress Note The patient's abdominal series was unremarkable. CBC demonstrated a white count of 14,000 but was otherwise unremarkable. 1245 p.m. The patient's urine demonstrated findings consistent with a urinary tract infection. I placed the patient on Macrobid for the next 5 days. I asked that she follow up with her caregiver in the next 48 hours. She was invited to return to the emergency department if any further problems or questions. Departure Impression Primary Impression: Urinary tract infection Qualified Codes: N30.00 - Acute cystitis without hematuria Disposition: HOME, SELF-CARE Condition: Improved Departure-Patient Inst. Decision time for Depature: 12:47 Referrals: ANDREW VILLARREAL MD (PCP/Family) Primary Care Physician Patient Instructions: Urinary Tract Infection, Adult (DC) Add. Discharge Instructions: Macrobid as prescribed. Close follow-up with Dr. Villarreal in the next 2 days. Return if any problems or questions. All discharge instructions reviewed with patient and/or family. Voiced understanding. Scripts Nitrofurantoin Monohyd/M-Cryst (Macrobid 100 mg Capsule) 100 Mg Capsule 1 TAB PO BID, #10 CAP Prov: CHELY BERGMAN MD 01/20/19 CHELY BERGMAN MD Jan 20, 2019 09:48
[2019-01-20 10:13] LABS: HEMATOCRIT 35 % (35-52); HEMOGLOBIN 10.1 G/DL (11.5-16.0); MEAN CORPUSCULAR HEMOGLOBIN 23 PG (25-34); MEAN CORPUSCULAR HGB CONC 29 G/DL (32-36); MEAN CORPUSCULAR VOLUME 78 FL (80-99); MEAN PLATELET VOLUME 8.7 FL (7.4-10.4); PLATELET COUNT 472 10^3/uL (130-400); RED CELL DISTRIBUTION WIDTH 15.4 % (10.0-14.5); WHITE BLOOD COUNT 14.3 10^3/uL (4.3-11.0)
[2019-01-20 10:14] LABS: BASOPHILS % (AUTO) 0 % (0-10); EOSINOPHILS # (AUTO) 0.1 10^3/uL (0.0-0.3); EOSINOPHILS % (AUTO) 1 % (0-10); LYMPHOCYTES % (AUTO) 14 % (12-44); MONOCYTES # (AUTO) 0.8 X 10^3 (0.0-1.0); MONOCYTES % (AUTO) 6 % (0-12); NEUTROPHILS # (AUTO) 11.3 X 10^3 (1.8-7.8); NEUTROPHILS % (AUTO) 79 % (42-75)
--- NOTE | 2019-01-20 10:25 | NUR ---
Pt up to bathroom to attempt to urinate. Unable to void.
[2019-01-20 10:31] LABS: BUN/CREATININE RATIO 29; CARBON DIOXIDE 16 MMOL/L (21-32); CHLORIDE 104 MMOL/L (98-107); CREATININE SERUM 0.87 MG/DL (0.60-1.30); GFR ESTIMATED > 60; SODIUM 139 MMOL/L (135-145)
[2019-01-20 10:32] LABS: ALANINE AMINOTRANSFERASE 8 U/L (0-55); ALKALINE PHOSPHATASE 151 U/L (40-136); BILIRUBIN,TOTAL 0.2 MG/DL (0.1-1.0); CALCIUM 9.1 MG/DL (8.5-10.1); GLUCOSE 117 MG/DL (70-105); LIPASE 21 U/L (8-78); TOTAL PROTEIN 7.2 GM/DL (6.4-8.2)
[2019-01-20] MEDS ORDERED: NS IV 1000 ML 1,000 ML ONE (10:35)
[2019-01-20] MEDS ORDERED: NS IV 1000 ML 1,000 ML IV SCH (10:45)
[2019-01-20 10:56] LABS: BAND NEUTROPHILS 1 %; BASOPHILS % (MANUAL) 0 %; EOSINOPHILS % (MANUAL) 3 %; LYMPHOCYTES % (MANUAL) 11 %; MONOCYTES % (MANUAL) 1 %; NEUTROPHILS % (MANUAL) 84 %
--- NOTE | 2019-01-20 10:58 | Diagnostic Imaging Report ---
INDICATION: Abdominal pain and vomiting. TIME OF EXAM: 10:12 AM FINDINGS: The heart size is normal. Lungs are clear. No free air is identified. There are surgical clips in the gallbladder fossa. Bowel gas pattern is nonobstructive. Moderate stool throughout the colon is seen. No pathologic calcifications are identified. IMPRESSION: Moderate stool. No other significant abnormality is detected. Dictated by: Dictated on workstation # [id number]
--- NOTE | 2019-01-20 11:30 | NUR ---
Notified pt I can not find her friend "Jovi" in waiting room. The head transfer clerk has not notified staff of this visitor inquiring.
[2019-01-20 12:24] LABS: CLARITY,URINE SLT CLOUDY; COLOR,URINE YELLOW
[2019-01-20 12:25] LABS: BACTERIA,URINE MODERATE /HPF; BILIRUBIN,URINE NEGATIVE (NEGATIVE); GLUCOSE, URINE (UA) NEGATIVE (NEGATIVE); KETONES,URINE TRACE (NEGATIVE); LEUKOCYTE ESTERASE ,URINE 2+ (NEGATIVE); NITRITE,URINE NEGATIVE (NEGATIVE); PROTEIN,URINE NEGATIVE (NEGATIVE); RBC,URINE RARE /HPF; UROBILINOGEN,URINE 0.2 MG/DL (NORMAL)
--- NOTE | 2019-01-20 12:30 | NUR ---
Pt used staff portable phone to call someone that called her cell phone, reports no ultrasound technol.
[2019-01-20] MEDS ORDERED: NITR-65 PO (12:48)
[2019-01-20 13:00] VITALS: BP 137/92
--- NOTE | 2019-01-20 13:00 | NUR ---
Pt discharged after review of home instructions verbalized by patient as understood. Pt requires extra instruction time as repeats the questions over and over.
== END 2019-01-20 13:00 | disposition home or self-care (01) ==
LOC: EDUNIT# 09:05 → ER FS 09:06
DX: N39.0 Urinary tract infection, site not specified (principal); G43.909 Migraine, unspecified, not intractable, without status migrainosus; F32.9 Major depressive disorder, single episode, unspecified; Z88.8 Allergy status to other drugs, medicaments and biological substances; Z87.891 Personal history of nicotine dependence
CPT/HCPCS: 36415; 74022; 80053; 81000; 83690; 84703; 85007; 85027; 87088

== ENCOUNTER 2019-04-02 09:11 | Emergency (ER) | payer MEDICARE, MEDICAID ==
[~2019-04-02] VITALS: Ht 160 cm; Wt 72.7 kg
[~2019-04-02 09:11] MED LIST changes: +NITR-65 PO
[2019-04-02] MEDS ORDERED: MELO7.5T46 (09:47)
[2019-04-02] MEDS ORDERED: OMEP20CA13 (09:47)
[2019-04-02] MEDS ORDERED: MONT10TA24 (09:47)
[2019-04-02] MEDS ORDERED: TOPI100T11 (09:47)
[2019-04-02] MEDS ORDERED: CITA40TA11 (09:47)
[2019-04-02] MEDS ORDERED: LEVO5TAB12 (09:47)
--- NOTE | 2019-04-02 09:54 | ED Headache ---
General Chief Complaint: Head/Cervical Problems Stated Complaint: HEADACHE Nursing Triage Note: Pt presents to ED reporting headahe starting at 0300 and her medication from Dr Villarreal does not work. Pt reports she wants the 3 shots we give usually and brought a tour driver. Pt's boyfriend is present. Nursing Sepsis Screen: No Definite Risk Source: patient History of Present Illness Date Seen by Provider: Apr 02, 2019 Time Seen by Provider: 09:40 Initial Comments The patient is a 39-year-old female well-known to this emergency department who presents for evaluation of a migraine headache which started at 3 AM today. She states this is exactly the same as her migraines always are and denies any u nusual symptoms. She is immediately demanding 3 "shots" and states that she has a tour driver in the waiting room. She is alert and oriented 4, calm, and appears to be in no distress. She denies any recent head injury, fever, neck pain or neck stiffness, vomiting, focal weakness or focal numbness, confusion, difficult speaking, difficulty walking, or vision changes. Timing/Duration: 4-6 hours Severity/Quality: moderate Location: frontal Prior Headaches/Recent Trauma: no recent headache/trauma, chronic headaches Modifying Factors: improves with exposure to light (worsens) Associated Symptoms: denies symptoms Allergies and Home Medications Allergies Coded Allergies: zolmitriptan (Unverified Adverse Reaction, Unknown, 08/15/18) Patient Home Medication List Home Medication List Reviewed: Yes Review of Systems Review of Systems Constitutional: no symptoms reported Eyes: No Symptoms Reported Ears, Nose, Mouth, Throat: no symptoms reported Respiratory: no symptoms reported Cardiovascular: no symptoms reported Gastrointestinal: no symptoms reported Genitourinary: no symptoms reported : No Musculoskeletal: no symptoms reported Skin: no symptoms reported Psychiatric/Neurological: Headache All Other Systems Reviewed Negative Unless Noted: Yes Past Behsmpy-Ddyabf-Wynojx Hx Past Med/Social Hx: Reviewed Nursing Past Med/Soc Hx Patient Social History Alcohol Use: Denies Use Recreational Drug Use: No Smoking Status: Former Smoker Type Used: Cigarettes Former Smoker, Quit: October 17, 2017 2nd Hand Smoke Exposure: No Recent Foreign Travel: No Contact w/Someone Who Travel: No Recent Infectious Disease Expo: No Recent Hopitalizations: No Physical Abuse: No Sexual Abuse: No Mistreated: No Fear: No Immunizations Up To Date Date of Influenza Vaccine: Mar 04, 2018 Seasonal Allergies Seasonal Allergies: Yes Past Medical History Surgeries: Yes Gallbladder Respiratory: No Cardiac: No Neurological: Yes Headaches /Migraines Genitourinary: No Gastrointestinal: No Musculoskeletal: Yes (RLS) Endocrine: No HEENT: No Cancer: No Psychosocial: Yes Depression Integumentary: No Blood Disorders: No Physical Exam Vital Signs Vital Signs - First Documented 04/02/19 09:20 Temp 36.0 Pulse 107 Resp 18 B/P (MAP) 126/93 (104) Pulse Ox 100 O2 Delivery Room Air Capillary Refill : Less Than 3 Seconds Height, Weight, BMI Height: 5'3.00" Weight: 160lbs. 0oz. [id number]; 28.00 BMI Method:Stated General Appearance: WD/WN, no apparent distress HEENT: PERRL/EOMI, pharynx normal Neck: non-tender, full range of motion, supple, normal inspection Cardiovascular: regular rate, rhythm, no edema, no JVD Respiratory: chest non-tender, lungs clear, normal breath sounds, no respiratory distress Gastrointestinal: normal bowel sounds, non tender, soft Extremities: normal range of motion, non-tender, normal inspection, no pedal edema Psychiatric: alert, oriented x 3 Crainal Nerves: normal hearing, normal speech, PERRL Motor/Sensory: no motor deficit, no sensory deficit Skin: normal color, warm/dry Progress/Results/Core Measures Results/Orders My Orders Orders - JAIME GEORGE DO Metoclopramide Injection (Reglan Injecti (04/02/19 10:00) Diphenhydramine Injection (Benadryl Inje (04/02/19 10:00) Ketorolac Injection (Toradol Injection) (04/02/19 10:00) Medications Given in ED Current Medications Medications Dose Ordered Sig/Hernan Route Start Time Stop Time Status Last Admin Dose Admin Diphenhydramine HCl 25 mg ONCE ONCE IM 04/02/19 10:00 04/02/19 10:01 DC 04/02/19 10:01 25 MG Ketorolac Tromethamine 30 mg ONCE ONCE IM 04/02/19 10:00 04/02/19 10:01 DC 04/02/19 10:02 30 MG Metoclopramide HCl 10 mg ONCE ONCE IM 04/02/19 10:00 04/02/19 10:01 DC 04/02/19 10:01 10 MG Vital Signs/I&O 04/02/19 04/02/19 09:20 10:02 Temp 36.0 36.0 Pulse 107 Resp 18 B/P (MAP) 126/93 (104) Pulse Ox 100 O2 Delivery Room Air Blood Pressure Mean: 104 POS Progress Progress Note : Progress Note @1015 - the patient reports that she is feeling much better and is asking to go home. Workup today fails reveal any emergent pathology in the patient appears comfortable and is stable for discharge. Advised the patient to return to the Emergency Department immediately for new or worsening symptoms. Departure Impression Primary Impression: Migraine Disposition: 01 HOME, SELF-CARE Condition: Stable Departure-Patient Inst. Decision time for Depature: 10:17 Referrals: SELF,ANDREW BOLIVAR (PCP/Family) Primary Care Physician Patient Instructions: Migraine Headache (DC) Add. Discharge Instructions: Follow-up with your doctor in the next 1-2 days. Return to the Emergency Department immediately for new or worsening symptoms. Take your home migraine medication as directed. JAIME GEORGE DO Apr 02, 2019 09:54 POS
[2019-04-02] MEDS ORDERED: diphenhydrAMINE 50 MG/ML INJ (BENADRYL) IM ONE (10:00)
[2019-04-02] MEDS ORDERED: KETOROLAC 60 MG/2 ML VIAL IM ONE (10:00)
[2019-04-02] MEDS ORDERED: METOCLOPRAMIDE INJ 10 MG/2 ML (REGLAN) IM ONE (10:00)
[2019-04-02 10:20] VITALS: BP 122/91
== END 2019-04-02 10:20 | disposition home or self-care (01) ==
LOC: EDUNIT# 09:11 → ER FS 09:12
DX: G43.909 Migraine, unspecified, not intractable, without status migrainosus (principal); F32.9 Major depressive disorder, single episode, unspecified; Z88.8 Allergy status to other drugs, medicaments and biological substances; Z87.891 Personal history of nicotine dependence
CPT/HCPCS: 96372; 99284

== ENCOUNTER 2019-05-04 08:09 | Emergency (ER) | payer OTHER, MEDICAID ==
[~2019-05-04] VITALS: Ht 160 cm; Wt 81.0 kg
[~2019-05-04 08:09] MED LIST changes: +CITA40TA11; +LEVO5TAB12; +MELO7.5T46; +MONT10TA24; +OMEP20CA13; +TOPI100T11
[2019-05-04] MEDS ORDERED: FAMOTIDINE 20 MG (PEPCID) TABLET PO STA (08:32)
--- NOTE | 2019-05-04 08:36 | ED Abdominal Pain ---
General Chief Complaint: Abdominal/GI Problems Stated Complaint: STOMACH PAIN Source of Information: Patient, Other Exam Limitations: No Limitations History of Present Illness Date Seen by Provider: May 04, 2019 Time Seen by Provider: 08:23 Initial Comments Patient presents ER by private conveyance with her significant other chief comp laint of 3 weeks of abdominal pain in her right upper quadrant and epigastric region. She is not seen her primary care doctor for this. She did go to urgent care and an x-ray of her belly was obtained but she has not had the results given to her yet. She was put on Carafate and omeprazole which she says helped but she is about out of that. She's had some diarrhea with last episode being a week ago. She's had some nausea intermittently unrelated to food. She took Zofran this morning and that took care of her nausea. Her abdominal pain is a 6.5 out of 10. She's had her gallbladder out. She is not on control. She denies dysuria fevers chills. She came to the ER today because urgent care told her if it did not get better to come the ER for further testing. She had her gallbladder out approximately a year ago and upper endoscopy around the same time. She says they told her nothing was wrong on the scope. Last oral intake was dinner last night at a [employer] restaurant. Allergies and Home Medications Allergies Coded Allergies: zolmitriptan (Unverified Adverse Reaction, Unknown, 08/15/18) Patient Home Medication List Home Medication List Reviewed: Yes Review of Systems Review of Systems Constitutional: No chills, No fever EENTM: No Blurred Vision, No Double Vision Respiratory: Denies Cough, Denies Shortness of Air Cardiovascular: Denies Chest Pain, Denies Edema Gastrointestinal: See HPI, Abdominal Pain; Denies Constipated; Diarrhea (last episode a week ago), Nausea; Denies Poor Fluid Intake Genitourinary: Denies Burning, Denies Discharge Musculoskeletal: No back pain, No joint pain Skin: No pruritus, No rash Psychiatric/Neurological: Denies Headache, Denies Numbness, Denies Paresthesia Past Psiqnjp-Qpnmrh-Vouocm Hx Patient Social History Alcohol Use: Denies Use Recreational Drug Use: No Smoking Status: Former Smoker Type Used: Cigarettes Former Smoker, Quit: October 17, 2017 2nd Hand Smoke Exposure: No Recent Hopitalizations: No Immunizations Up To Date Date of Influenza Vaccine: Mar 04, 2018 Seasonal Allergies Seasonal Allergies: Yes Past Medical History Surgeries: Yes Gallbladder Respiratory: No Cardiac: No Neurological: Yes Headaches /Migraines Genitourinary: No Gastrointestinal: No Musculoskeletal: Yes (RLS) Endocrine: No HEENT: No Cancer: No Psychosocial: Yes Depression Integumentary: No Blood Disorders: No Physical Exam Vital Signs Vital Signs - First Documented 05/04/19 08:25 Temp 36.7 Pulse 82 Resp 18 B/P (MAP) 123/83 (96) Pulse Ox 93 O2 Delivery Room Air Capillary Refill : Height/Weight/BMI Height: 5'3.00" Weight: 160lbs. 0oz. [id number]; 28.00 BMI Method:Stated General Appearance: WD/WN, no apparent distress HEENT: PERRL/EOMI, pharynx normal Neck: full range of motion, normal inspection Respiratory: lungs clear, normal breath sounds, no respiratory distress, no accessory muscle use Cardiovascular: normal peripheral pulses, regular rate, rhythm Gastrointestinal: normal bowel sounds, non tender, soft, other (negative for psoas sign, Rovsing sign, McBurney's point tenderness, rebound tenderness, mesenteric signs) Extremities: non-tender, normal inspection, normal capillary refill Neurologic/Psychiatric: alert, normal mood/affect, oriented x 3 Skin: normal color, warm/dry Progress/Results/Core Measures Results/Orders Lab Results Laboratory Tests Test 05/04/19 08:40 Range/Units White Blood Count 6.8 4.3-11.0 10^3/uL Red Blood Count 5.12 4.35-5.85 10^6/uL Hemoglobin 12.6 11.5-16.0 G/DL Hematocrit 43 35-52 % Mean Corpuscular Volume 83 80-99 FL Mean Corpuscular Hemoglobin 25 25-34 PG Mean Corpuscular Hemoglobin Concent 30 L 32-36 G/DL Red Cell Distribution Width 20.9 H 10.0-14.5 % Platelet Count 501 H 130-400 10^3/uL Mean Platelet Volume 8.7 7.4-10.4 FL Neutrophils (%) (Auto) 57 42-75 % Lymphocytes (%) (Auto) 33 12-44 % Monocytes (%) (Auto) 5 0-12 % Eosinophils (%) (Auto) 3 0-10 % Basophils (%) (Auto) 1 0-10 % Neutrophils # (Auto) 3.9 1.8-7.8 X 10^3 Lymphocytes # (Auto) 2.3 1.0-4.0 X 10^3 Monocytes # (Auto) 0.4 0.0-1.0 X 10^3 Eosinophils # (Auto) 0.2 0.0-0.3 10^3/uL Basophils # (Auto) 0.0 0.0-0.1 10^3/uL Sodium Level 138 135-145 MMOL/L Potassium Level 3.7 3.6-5.0 MMOL/L Chloride Level 108 H 98-107 MMOL/L Carbon Dioxide Level 20 L 21-32 MMOL/L Anion Gap 10 5-14 MMOL/L Blood Urea Nitrogen 16 7-18 MG/DL Creatinine 0.80 0.60-1.30 MG/DL Estimat Glomerular Filtration Rate > 60 BUN/Creatinine Ratio 20 Glucose Level 101 70-105 MG/DL Calcium Level 9.1 8.5-10.1 MG/DL Corrected Calcium 9.0 8.5-10.1 MG/DL Total Bilirubin 0.2 0.1-1.0 MG/DL Aspartate Amino Transf (AST/SGOT) 18 5-34 U/L Alanine Aminotransferase (ALT/SGPT) 10 0-55 U/L Alkaline Phosphatase 149 H 40-136 U/L Total Protein 7.0 6.4-8.2 GM/DL Albumin 4.1 3.2-4.5 GM/DL Lipase 28 8-78 U/L Serum Test, Qualitative NEGATIVE NEGATIVE My Orders Orders - ANDREW SCHERER Lidocaine 2% Viscous 15 Ml (Xylocaine Vi (05/04/19 08:45) Famotidine Tablet (Pepcid Tablet) (05/04/19 08:32) Antacid Suspension (Mylanta Suspension (05/04/19 08:45) Ed Iv/Invasive Line Start (05/04/19 08:32) Cbc With Automated Diff (05/04/19 08:32) Comprehensive Metabolic Panel (05/04/19 08:32) Lipase (05/04/19 08:32) Ua Culture If Indicated (05/04/19 08:32) Hcg,Qualitative Serum (05/04/19 09:04) Medications Given in ED Current Medications Medications Dose Ordered Sig/Hernan Route Start Time Stop Time Status Last Admin Dose Admin Al Hydrox/Mg Hydrox/Simethicone 30 ml ONCE ONCE PO 05/04/19 08:45 05/04/19 08:46 DC 05/04/19 08:49 30 ML Lidocaine HCl 15 ml ONCE ONCE PO 05/04/19 08:45 05/04/19 08:46 DC 05/04/19 08:49 15 ML Vital Signs/I&O 05/04/19 08:25 Temp 36.7 Pulse 82 Resp 18 B/P (MAP) 123/83 (96) Pulse Ox 93 O2 Delivery Room Air Progress Progress Note #1: Time: 08:54 Progress Note Suspect PUD versus gastritis versus gastroenteritis. Much less likely pancreatitis. Obstipation/constipation could also be a source of her loose s tools infrequently over the past 3 weeks. The patient took sounds like omeprazole and Carafate for the past couple weeks with good improvement of her symptoms. We'll start with a GI cocktail. She's not having any nausea now. She has afebrile, aseptic vital signs and a benign abdominal exam. She is insistent that she wants testing but has not followed up with primary care yet. We will do some baseline labs and if nothing appears worrisome we can give her suggestions for follow-up with primary care for further workup. KUB from January 20 demonstrates moderate stool. Progress Note #2: Time: 09:46 Progress Note She got significant relief from the GI cocktail. We'll recommend antacids as well as put her on 20 mg pantoprazole twice a day until resolved and follow-up with Dr. Villarreal outpatient for further evaluation for PUD versus gastritis. Departure Impression Primary Impression: Gastritis Qualified Codes: K29.50 - Unspecified chronic gastritis without bleeding Disposition: HOME, SELF-CARE Condition: Stable Departure-Patient Inst. Decision time for Depature: 09:35 Referrals: ANDREW VILLARREAL MD (PCP/Family) Primary Care Physician Patient Instructions: Gastritis (DC) Add. Discharge Instructions: Start taking the pantoprazole 20 mg twice a day. Finish out the Carafate as prescribed. Call Dr. Villarreal and request follow-up appointment to discuss further workup of your abdominal discomfort. Tylenol 1000 mg every 8 hours as needed for pain. Ibuprofen 800 mg every 8 hours as needed for pain. Rolaids/Tums/Pepto-Bismol etc. for the pain. All discharge instructions reviewed with patient and/or family. Voiced understanding. Scripts Pantoprazole Sodium (Pantoprazole Sodium) 20 Mg Tablet. 20 MG PO BID for 30 Days, #60 TAB 0 Refills Prov: ANDREW SCHERER 05/04/19 Copy Copies To 1: SELFANDRWE MD, TITUS J May 04, 2019 08:36 POS
[2019-05-04] MEDS ORDERED: ANTACID SUSP 30 ML UDC (MYLANTA) PO ONE (08:45)
[2019-05-04] MEDS ORDERED: LIDOCAINE 2% VISCOUS 15 ML UDC PO ONE (08:45)
[2019-05-04 09:00] LABS: BASOPHILS % (AUTO) 1 % (0-10); EOSINOPHILS # (AUTO) 0.2 10^3/uL (0.0-0.3); EOSINOPHILS % (AUTO) 3 % (0-10); HEMATOCRIT 43 % (35-52); HEMOGLOBIN 12.6 G/DL (11.5-16.0); LYMPHOCYTES # (AUTO) 2.3 X 10^3 (1.0-4.0); LYMPHOCYTES % (AUTO) 33 % (12-44); MEAN CORPUSCULAR HEMOGLOBIN 25 PG (25-34); MEAN CORPUSCULAR HGB CONC 30 G/DL (32-36); MEAN CORPUSCULAR VOLUME 83 FL (80-99); MEAN PLATELET VOLUME 8.7 FL (7.4-10.4); MONOCYTES # (AUTO) 0.4 X 10^3 (0.0-1.0); MONOCYTES % (AUTO) 5 % (0-12); NEUTROPHILS # (AUTO) 3.9 X 10^3 (1.8-7.8); NEUTROPHILS % (AUTO) 57 % (42-75); PLATELET COUNT 501 10^3/uL (130-400); RED CELL DISTRIBUTION WIDTH 20.9 % (10.0-14.5); WHITE BLOOD COUNT 6.8 10^3/uL (4.3-11.0)
[2019-05-04 09:09] LABS: ALANINE AMINOTRANSFERASE 10 U/L (0-55); ALBUMIN 4.1 GM/DL (3.2-4.5); ALKALINE PHOSPHATASE 149 U/L (40-136); BILIRUBIN,TOTAL 0.2 MG/DL (0.1-1.0); BUN/CREATININE RATIO 20; CALCIUM 9.1 MG/DL (8.5-10.1); CARBON DIOXIDE 20 MMOL/L (21-32); CHLORIDE 108 MMOL/L (98-107); GFR ESTIMATED > 60; GLUCOSE 101 MG/DL (70-105); LIPASE 28 U/L (8-78); POTASSIUM 3.7 MMOL/L (3.6-5.0); SODIUM 138 MMOL/L (135-145)
[2019-05-04] MEDS ORDERED: PANT20TA3 PO (09:48)
[2019-05-04 10:00] VITALS: BP 122/88
--- OUTSIDE RECORDS SUMMARY | 2019-05-29 06:22 | XMS REPORT | Continuity of Care Document ---
Author Organization Unknown Address Unknown Phone Unavailable Allergies Active Description Code Type Severity Reaction Onset Reported/Identified Relationship to Patient Clinical Status Yes zolmitriptan [id number] Drug Allergy Unknown N/A 08/15/2018 Medications There is no data. Problems Date Dx Coded Attending Type Code Diagnosis Diagnosed By 08/14/2018 ANDREW DONAHUE MD Ot S89.92 XD UNSPECIFIED INJURY OF LEFT LOWER LEG, MCNEAL 08/15/2018 JEN ESCALERA MD Ot G43.909 MIGRAINE, UNSP, NOT INTRACTABLE, WITHOUT 08/15/2018 JEN ESCALERA MD Ot Z88 .8 ALLERGY STATUS TO OTH DRUG/MEDS/BIOL SUB 08/19/2018 JEN ESCALERA MD Ot G43.909 MIGRAINE, UNSP, NOT INTRACTABLE, WITHOUT 08/19/2018 JEN ESCALERA MD Ot Z88 .8 ALLERGY STATUS TO OTH DRUG/MEDS/BIOL SUB 08/22/2018 ANDREW DONAHUE MD Ot S89.92 XD UNSPECIFIED INJURY OF LEFT LOWER LEG, MCNEAL 08/24/2018 JEN ESCALERA MD Ot G43.909 MIGRAINE, UNSP, NOT INTRACTABLE, WITHOUT 08/24/2018 JEN ESCALERA MD Ot Z88 .8 ALLERGY STATUS TO OTH DRUG/MEDS/BIOL SUB 08/27/2018 ANDREW DONAHUE MD Ot S89.92 XD UNSPECIFIED INJURY OF LEFT LOWER LEG, MCNEAL 08/28/2018 ANDREW DONAHUE MD Ot S89.92 XD UNSPECIFIED INJURY OF LEFT LOWER LEG, MCNEAL 09/11/2018 JAM MARIE DO Ot F32 .9 MAJOR DEPRESSIVE DISORDER, SINGLE EPISOD 09/11/2018 JAM MARIE DO Ot G25.81 RESTLESS LEGS SYNDROME 09/11/2018 JAM MARIE DO, Ot G43.909 MIGRAINE, UNSP, NOT INTRACTABLE, WITHOUT 09/11/2018 JAM MARIE DO Ot R51 HEADACHE 09/11/2018 JAM MARIE DO, Ot Z88 .8 ALLERGY STATUS TO OTH DRUG/MEDS/BIOL SUB 09/13/2018 JAM MARIE DO Alejandro Ot F32 .9 MAJOR DEPRESSIVE DISORDER, SINGLE EPISOD 09/13/2018 FRAKN DOJAM Alejandro Ot G25.81 RESTLESS LEGS SYNDROME 09/13/2018 FRANK SALAZAR JAM Allen Ot G43.909 MIGRAINE, UNSP, NOT INTRACTABLE, WITHOUT 09/13/2018 FRANK DO JAM Allen Ot R51 HEADACHE 09/13/2018 FRANK SALAZAR JAM Allen Ot Z88 .8 ALLERGY STATUS TO OTH DRUG/MEDS/BIOL SUB 09/18/2018 JW BOLIVAR, JEN Allen Ot F32 .9 MAJOR DEPRESSIVE DISORDER, SINGLE EPISOD 09/18/2018 JW BOLIVAR, JEN Allen Ot G25.81 RESTLESS LEGS SYNDROME 09/18/2018 JW BOLIVAR, JEN Allen Ot G43.909 MIGRAINE, UNSP, NOT INTRACTABLE, WITHOUT 09/18/2018 JEN ESCALERA MD Ot Z88 .8 ALLERGY STATUS TO OTH DRUG/MEDS/BIOL SUB 09/18/2018 JW BOLIVAR, JEN Allen Ot Z98.890 OTHER SPECIFIED POSTPROCEDURAL STATES 09/20/2018 JW BOLIVAR, JEN Allen Ot F32 .9 MAJOR DEPRESSIVE DISORDER, SINGLE EPISOD 09/20/2018 JW BOLIVAR, JEN Allen Ot G25.81 RESTLESS LEGS SYNDROME 09/20/2018 JW BOLIVAR, JEN Allen Ot G43.909 MIGRAINE, UNSP, NOT INTRACTABLE, WITHOUT 09/20/2018 JW BOLIVAR, JEN Allen Ot Z88 .8 ALLERGY STATUS TO OTH DRUG/MEDS/BIOL SUB 09/20/2018 JW BOLIVAR, JEN Allen Ot Z98.890 OTHER SPECIFIED POSTPROCEDURAL STATES 10/12/2018 DARCI AGUERO DO Ot F32.9 MAJOR DEPRESSIVE DISORDER, SINGLE EPISOD 10/12/2018 ONESIMO SALAZAR DACRI Ot G25.81 RESTLESS LEGS SYNDROME 10/12/2018 ONESIMO SLAAZAR DARCI Ot G43.909 MIGRAINE, UNSP, NOT INTRACTABLE, WITHOUT 10/12/2018 ONESIMO SALAZAR DARCI Ot Z87.891 PERSONAL HISTORY OF NICOTINE DEPENDENCE 10/12/2018 ONESIMO SALAZAR DARCI Ot Z88.8 ALLERGY STATUS TO OTH DRUG/MEDS/BIOL SUB 10/12/2018 ONESIMO SALAZAR DARCI Ot Z98.890 OTHER SPECIFIED POSTPROCEDURAL STATES 10/16/2018 DARCI AGUERO DO Ot F32.9 MAJOR DEPRESSIVE DISORDER, SINGLE EPISOD 10/16/2018 AGUERO DO, DARCI Ot G25.81 RESTLESS LEGS SYNDROME 10/16/2018 AGUERO DO, DARCI Ot G43.909 MIGRAINE, UNSP, NOT INTRACTABLE, WITHOUT 10/16/2018 AGUERO DO, DARCI Ot Z87.891 PERSONAL HISTORY OF NICOTINE DEPENDENCE 10/16/2018 AGUERO DO, DARCI Ot Z88.8 ALLERGY STATUS TO OTH DRUG/MEDS/BIOL SUB 10/16/2018 AGUERO DO, DARCI Ot Z98.890 OTHER SPECIFIED POSTPROCEDURAL STATES 11/23/2018 AGUERO DO, DARCI Ot F32.9 MAJOR DEPRESSIVE DISORDER, SINGLE EPISOD 11/23/2018 AGUERO DO, DARCI Ot G43.709 CHRONIC MIGRAINE W/O AURA, NOT INTRACTAB 11/23/2018 AGUERO DO, DARCI Ot R51 HEADACHE 11/23/2018 AGUERO DO, DARCI Ot Z88.8 ALLERGY STATUS TO OTH DRUG/MEDS/BIOL SUB 11/25/2018 AGUERO DO, DARCI Ot F32.9 MAJOR DEPRESSIVE DISORDER, SINGLE EPISOD 11/25/2018 AGUERO DO, DARCI Ot G43.709 CHRONIC MIGRAINE W/O AURA, NOT INTRACTAB 11/25/2018 AGUERO DO, DARCI Ot R51 HEADACHE 11/25/2018 [place] DO, DARCI Ot Z88.8 ALLERGY STATUS TO OTH DRUG/MEDS/BIOL SUB 12/23/2018 LEANDRO BOLIVAR, JAM hayes F32.9 MAJOR DEPRESSIVE DISORDER, SINGLE EPISOD 12/23/2018 LEANDRO BOLIVAR, JAM hayes G43.909 MIGRAINE, UNSP, NOT INTRACTABLE, WITHOUT 12/23/2018 LEANDRO BOLIVAR, JAM hayes Z87.891 PERSONAL HISTORY OF NICOTINE DEPENDENCE 12/23/2018 LEANDRO BOLIVAR, JAM hayes Z88.8 ALLERGY STATUS TO OTH DRUG/MEDS/BIOL SUB 01/08/2019 LEANDRO BOLIVAR, JAM hayes F32.9 MAJOR DEPRESSIVE DISORDER, SINGLE EPISOD 01/08/2019 LEANDRO BOLIVAR, JAM hayes G43.909 MIGRAINE, UNSP, NOT INTRACTABLE, WITHOUT 01/08/2019 LEANDRO BOLIVAR, JAM hayes Z87.891 PERSONAL HISTORY OF NICOTINE DEPENDENCE 01/08/2019 LEANDRO BOLIVAR, JAM hayes Z88.8 ALLERGY STATUS TO OTH DRUG/MEDS/BIOL SUB 01/10/2019 LEANDRO BOLIVAR, JAM hayes F32.9 MAJOR DEPRESSIVE DISORDER, SINGLE EPISOD 01/10/2019 LEANDRO BOLIVAR, JAM hayes G43.909 MIGRAINE, UNSP, NOT INTRACTABLE, WITHOUT 01/10/2019 LEANDRO BOLIVAR, JAM hayes Z87.891 PERSONAL HISTORY OF NICOTINE DEPENDENCE 01/10/2019 LEANDRO BOLIVAR, JAM hayes Z88.8 ALLERGY STATUS TO OTH DRUG/MEDS/BIOL SUB 01/20/2019 PACHECO BOLIVAR, CHELY [place] Ot F32. 9 MAJOR DEPRESSIVE DISORDER, SINGLE EPISOD 01/20/2019 PACHECO BOLIVAR, CHELY [place] Ot G43.909 MIGRAINE, UNSP, NOT INTRACTABLE, WITHOUT 01/20/2019 PACHECO BOLIVAR, CHELY [place] Ot N39. 0 URINARY TRACT INFECTION, SITE NOT SPECIF 01/20/2019 CHELY BERGMAN MD Ot R11. 2 NAUSEA WITH VOMITING, UNSPECIFIED 01/20/2019 PACHECO BOLIVAR, CHELY [place] Ot Z87.891 PERSONAL HISTORY OF NICOTINE DEPENDENCE 01/20/2019 PACHECO BOLIVAR, CHELY [place] Ot Z88. 8 ALLERGY STATUS TO OTH DRUG/MEDS/BIOL SUB 01/22/2019 PACHECO BOLIVAR, CHELY [place] Ot F32. 9 MAJOR DEPRESSIVE DISORDER, SINGLE EPISOD 01/22/2019 PACHECO BOLIVAR, CHELY [place] Ot G43.909 MIGRAINE, UNSP, NOT INTRACTABLE, WITHOUT 01/22/2019 PACHECO BOLIVAR, CHELY [place] Ot N39. 0 URINARY TRACT INFECTION, SITE NOT SPECIF 01/22/2019 PACHECO BOLIVAR, CHELY [place] Ot R11. 2 NAUSEA WITH VOMITING, UNSPECIFIED 01/22/2019 PACHECO BOLIVAR, CHELY [place] Ot Z87.891 PERSONAL HISTORY OF NICOTINE DEPENDENCE 01/22/2019 PACHECO BOLIVAR, CHELY [place] Ot Z88. 8 ALLERGY STATUS TO OTH DRUG/MEDS/BIOL SUB 04/02/2019 ARIEL SANDOVAL DO Ot F32. 9 MAJOR DEPRESSIVE DISORDER, SINGLE EPISOD 04/02/2019 ARIEL SANDOVAL DO Ot G43.909 MIGRAINE, UNSP, NOT INTRACTABLE, WITHOUT 04/02/2019 ARIEL SANDOVAL DO Ot R51 HEADACHE 04/02/2019 ARIEL SANDOVAL DO Ot Z87.891 PERSONAL HISTORY OF NICOTINE DEPENDENCE 04/02/2019 ARIEL SANDOVAL DO Ot Z88. 8 ALLERGY STATUS TO OTH DRUG/MEDS/BIOL SUB 04/21/2019 ANDREW DONAHUE MD Ot S89.92 XD UNSPECIFIED INJURY OF LEFT LOWER LEG, MCNEAL 05/09/2019 ANDREW SCHERER MD Ot F32. 9 MAJOR DEPRESSIVE DISORDER, SINGLE EPISOD 05/09/2019 ANDREW SCHERER MD Ot G43.909 MIGRAINE, UNSP, NOT INTRACTABLE, WITHOUT 05/09/2019 ANDREW SCHERER MD Ot K29. 70 GASTRITIS, UNSPECIFIED, WITHOUT BLEEDING 05/09/2019 ANDREW SCHERER MD Ot R10. 11 RIGHT UPPER QUADRANT PAIN 05/09/2019 ANDREW SCHERER MD Ot Z87.891 PERSONAL HISTORY OF NICOTINE DEPENDENCE 05/09/2019 ANDREW SCHERER MD Ot Z88. 8 ALLERGY STATUS TO OTH DRUG/MEDS/BIOL SUB Procedures There is no data. Results Test Result Range HEP B SURFACE ANTIGEN - 11/18/18 11:17 HEPATITIS B SURFACE ANTIGEN NON-REACTIVE NON-REACTIVE CMP - 01/13/19 09:45 GLUCOSE 96 mg/dL 65-99 UREA NITROGEN (BUN) 17 mg/dL 7-25 CREATININE 0.81 mg/dL 0.50-1.10 eGFR NON-AFR. MALTESE 91 mL/min/1.73m2 > OR = 60 eGFR 105 mL/min/1.73m2 > OR = 60 BUN/CREATININE RATIO NOT APPLICABLE (calc) 6-22 SODIUM 140 mmol/L 135-146 POTASSIUM 4.3 mmol/L 3.5-5.3 CHLORIDE 110 mmol/L 98-110 CARBON DIOXIDE 21 mmol/L 20-32 CALCIUM 8.6 mg/dL 8.6-10.2 PROTEIN, TOTAL 6.5 g/dL 6.1-8.1 ALBUMIN 3.9 g/dL 3.6-5.1 GLOBULIN 2.6 g/dL (calc) 1.9-3.7 ALBUMIN/GLOBULIN RATIO 1.5 (calc) 1.0-2. 5 BILIRUBIN, TOTAL 0.2 mg/dL 0.2-1.2 ALKALINE PHOSPHATASE 148 U/L 33-115 AST 15 U/L 10-30 ALT 9 U/L 6-29 Complete blood count (CBC) with automate d white blood cell (WBC) differential - 01/20/19 09:55 Blood leukocytes automated count (number/volume) 14.3 10*3/uL 4.3-11.0 Blood erythrocytes automated count (number/volume) 4.45 10*6/uL 4.35-5.85 Venous blood hemoglobin measurement (mass/volume) 10.1 g/dL 11.5-16.0 Blood hematocrit (volume fraction) 35 % 35-52 Automated erythrocyte mean corpuscular volume 78 [ foz_us] 80-99 Automated erythrocyte mean corpuscular h emoglobin (mass per erythrocyte) 23 pg 25-34 Automated erythrocyte mean corpuscular h emoglobin concentration measurement (mass/volume) 29 g/dL 32-36 Automated erythrocyte distribution width ratio 15. 4 % 10.0- 14.5 Automated blood platelet count (count/volume) 472 10*3/uL 130-400 Automated blood platelet mean volume measurement 8.7 [foz_us] 7.4-10.4 Automated blood neutrophils/100 leukocytes 79 % 42-75 Automated blood lymphocytes/100 leukocytes 14 % 12-44 Blood monocytes/100 leukocytes 6 % 0-12 Automated blood eosinophils/100 leukocytes 1 % 0-10 Automated blood basophils/100 leukocytes 0 % 0-10 Blood neutrophils automated count (number/volume) 11.3 10*3 1.8-7.8 Blood lymphocytes automated count (number/volume) 2.0 10*3 1.0-4.0 Blood monocytes automated count (number/volume) 0. 8 10*3 0.0-1.0 Automated eosinophil count 0.1 10*3/uL 0 .0-0.3 Automated blood basophil count (count/volume) 0.0 10*3/uL 0.0-0.1 Serum or plasma choriogonadotropin (preg terry test) detection - 01/20/19 09:55 Serum or plasma choriogonadotropin ( test) de tection NEGATIVE NEGATIVE Comprehensive metabolic panel - 01/20/19 09:55 Serum or plasma sodium measurement (moles/volume) 139 mmol/L 135-145 Serum or plasma potassium measurement (moles/volume) 4.0 mmol/L 3.6-5.0 Serum or plasma chloride measurement (moles/volume) 104 mmol/L 98-107 Carbon dioxide 16 mmol/L 21-32 Serum or plasma anion gap determination (moles/volume) 19 mmol/L 5-14 Serum or plasma urea nitrogen measurement (mass/volume ) 25 mg/dL 7-18 Serum or plasma creatinine measurement (mass/volume) 0.87 mg/dL 0.60-1.30 Serum or plasma urea nitrogen/creatinine mass ratio 29 NRG Serum or plasma creatinine measurement w ith calculation of estimated glomerular filtration rate > NRG Serum or plasma glucose measurement (mass/volume) 117 mg/dL 70-105 Serum or plasma calcium measurement (mass/volume) 9.1 mg/dL 8.5-10.1 Serum or plasma total bilirubin measurement (mass/volu me) 0.2 mg/dL 0.1-1.0 Serum or plasma alkaline phosphatase sue surement (enzymatic activity/volume) 151 U/L 40-136 Serum or plasma aspartate aminotransfera se measurement (enzymatic activity/volume) 15 U/L 5-34 Serum or plasma alanine aminotransferase measurement (enzymatic activity/volume) 8 U/L 0-55 Serum or plasma protein measurement (mass/volume) 7.2 g/dL 6.4-8.2 Serum or plasma albumin measurement (mass/volume) 4.0 g/dL 3.2-4.5 CALCIUM CORRECTED 9.1 mg/dL 8.5-10.1 Lipase - 01/20/19 09:55 Lipase 21 U/L 8-78 Manual absolute plasma cell count - 01/02 02/20 09:55 Blood monocytes/100 leukocytes 1 % NRG Manual blood segmented neutrophils/100 leukocytes 84 % NRG Blood band neutrophils/100 leukocytes 1 % NRG Manual blood lymphocytes/100 leukocytes 11 % NRG Manual eosinophils/100 leukocytes in nose 3 % NRG Manual blood basophils/100 leukocytes 0 % NRG Complete urinalysis with reflex to cultu re - 01/20/19 12:12 Urine color determination YELLOW NRG Urine clarity determination SLT CLOUDY NRG Urine pH measurement by test strip 6.0 5-9 Specific gravity of urine by test strip 1.025 1.016-1.022 Urine protein assay by test strip, semi-quantitative NEGATIVE NEGATIVE Urine glucose detection by automated test strip NE GATIVE NEGATIVE Erythrocytes detection in urine sediment by light micr oscopy NEGATIVE NEGATIVE Urine ketones detection by automated test strip TR LENIN NEGATIVE Urine nitrite detection by test strip NEGATIVE NEGATIVE Urine total bilirubin detection by test strip NEGA TIVE NEGATIVE Urine urobilinogen measurement by automated test strip (mass/volume) 0.2 mg/dL NORMAL Urine leukocyte esterase detection by dipstick 2+ NEGATIVE Automated urine sediment erythrocyte cou nt by microscopy (number/high power field) RARE NRG Automated urine sediment leukocyte count by microscopy (number/high power field) [HPF] NRG Bacteria detection in urine sediment by light microsco py MODERATE NRG Squamous epithelial cells detection in u rine sediment by light microscopy 5-10 NRG Crystals detection in urine sediment by light microsco py NONE NRG Casts detection in urine sediment by light microscopy NONE NRG Mucus detection in urine sediment by light microscopy SMALL NRG Complete urinalysis with reflex to culture YES NRG Bacterial urine culture - 01/20/19 12:12 Bacterial urine culture 3 OR MORE NRG COLONY COUNT >100,000/ML NRG FTX;REPORTABLE GRAM POSITIVES, SUGGESTING PROBABLE NRG FREE TEXT ENTRY 2 COLLECTION CONTAMINATION WITH SK IN FRANCI NRG FREE TEXT ENTRY 3 NO SUSCEPTIBILITY PERFORMED NRG TEST AUTHORIZATION - 04/07/19 16:58 TEST NAME: IRON, TIBC AND FERRITIN PANEL NRG TEST CODE: [id number] NRG CLIENT CONTACT: MANASA POWERS NRG REPORT ALWAYS MESSAGE SIGNATURE NRG COMMENT NRG [facility] - 04/28/19 14:08 GLUCOSE 91 mg/dL 65-99 UREA NITROGEN (BUN) 28 mg/dL 7-25 CREATININE 0.91 mg/dL 0.50-1.10 eGFR NON-AFR. MALTESE 78 mL/min/1.73m2 > OR = 60 eGFR 91 mL/min/1.73m2 > OR = 60 BUN/CREATININE RATIO 31 (calc) 6-22 SODIUM 140 mmol/L 135-146 POTASSIUM 4.0 mmol/L 3.5-5.3 CHLORIDE 112 mmol/L 98-110 CARBON DIOXIDE 20 mmol/L 20-32 CALCIUM 9.0 mg/dL 8.6-10.2 CBC - 04/28/19 14:08 WHITE BLOOD CELL COUNT 7.9 Thousand/uL 3 .8-10.8 RED BLOOD CELL COUNT 5.05 Million/uL 3.8 0-5.10 HEMOGLOBIN 12.3 g/dL 11.7-15.5 HEMATOCRIT 39.8 % 35.0-45.0 MCV 78.8 fL 80.0-100.0 MCH 24.4 pg 27.0-33.0 MCHC 30.9 g/dL 32.0-36.0 RDW 21.2 % 11.0-15.0 PLATELET COUNT 583 Thousand/uL 140-400 MPV 9.2 fL 7.5-12.5 ABSOLUTE NEUTROPHILS 4732 cells/uL 1500- 7800 ABSOLUTE LYMPHOCYTES 2591 cells/uL 850-3 900 ABSOLUTE MONOCYTES 403 cells/uL 200-950 ABSOLUTE EOSINOPHILS 142 cells/uL 15-500 ABSOLUTE BASOPHILS 32 cells/uL 0-200 NEUTROPHILS 59.9 % NRG LYMPHOCYTES 32.8 % NRG MONOCYTES 5.1 % NRG EOSINOPHILS 1.8 % NRG BASOPHILS 0.4 % NRG Complete blood count (CBC) with automate d white blood cell (WBC) differential - 05/04/19 08:40 Blood leukocytes automated count (number/volume) 6.8 10*3/uL 4.3-11.0 Blood erythrocytes automated count (number/volume) 5.12 10*6/uL 4.35-5.85 Venous blood hemoglobin measurement (mass/volume) 12.6 g/dL 11.5-16.0 Blood hematocrit (volume fraction) 43 % 35-52 Automated erythrocyte mean corpuscular volume 83 [ foz_us] 80-99 Automated erythrocyte mean corpuscular h emoglobin (mass per erythrocyte) 25 pg 25-34 Automated erythrocyte mean corpuscular h emoglobin concentration measurement (mass/volume) 30 g/dL 32-36 Automated erythrocyte distribution width ratio 20. 9 % 10.0- 14.5 Automated blood platelet count (count/volume) 501 10*3/uL 130-400 Automated blood platelet mean volume measurement 8.7 [foz_us] 7.4-10.4 Automated blood neutrophils/100 leukocytes 57 % 42-75 Automated blood lymphocytes/100 leukocytes 33 % 12-44 Blood monocytes/100 leukocytes 5 % 0-12 Automated blood eosinophils/100 leukocytes 3 % 0-10 Automated blood basophils/100 leukocytes 1 % 0-10 Blood neutrophils automated count (number/volume) 3.9 10*3 1.8-7.8 Blood lymphocytes automated count (number/volume) 2.3 10*3 1.0-4.0 Blood monocytes automated count (number/volume) 0. 4 10*3 0.0-1.0 Automated eosinophil count 0.2 10*3/uL 0 .0-0.3 Automated blood basophil count (count/volume) 0.0 10*3/uL 0.0-0.1 Comprehensive metabolic panel - 05/04/19 08:40 Serum or plasma sodium measurement (moles/volume) 138 mmol/L 135-145 Serum or plasma potassium measurement (moles/volume) 3.7 mmol/L 3.6-5.0 Serum or plasma chloride measurement (moles/volume) 108 mmol/L 98-107 Carbon dioxide 20 mmol/L 21-32 Serum or plasma anion gap determination (moles/volume) 10 mmol/L 5-14 Serum or plasma urea nitrogen measurement (mass/volume ) 16 mg/dL 7-18 Serum or plasma creatinine measurement (mass/volume) 0.80 mg/dL 0.60-1.30 Serum or plasma urea nitrogen/creatinine mass ratio 20 NRG Serum or plasma creatinine measurement w ith calculation of estimated glomerular filtration rate > NRG Serum or plasma glucose measurement (mass/volume) 101 mg/dL 70-105 Serum or plasma calcium measurement (mass/volume) 9.1 mg/dL 8.5-10.1 Serum or plasma total bilirubin measurement (mass/volu me) 0.2 mg/dL 0.1-1.0 Serum or plasma alkaline phosphatase sue surement (enzymatic activity/volume) 149 U/L 40-136 Serum or plasma aspartate aminotransfera se measurement (enzymatic activity/volume) 18 U/L 5-34 Serum or plasma alanine aminotransferase measurement (enzymatic activity/volume) 10 U/L 0-55 Serum or plasma protein measurement (mass/volume) 7.0 g/dL 6.4-8.2 Serum or plasma albumin measurement (mass/volume) 4.1 g/dL 3.2-4.5 CALCIUM CORRECTED 9.0 mg/dL 8.5-10.1 Lipase - 05/04/19 08:40 Lipase 28 U/L 8-78 Serum or plasma choriogonadotropin (preg terry test) detection - 05/04/19 08:40 Serum or plasma choriogonadotropin ( test) de tection NEGATIVE NEGATIVE CBC - 05/07/19 10:08 WHITE BLOOD CELL COUNT 7.1 Thousand/uL 3 .8-10.8 RED BLOOD CELL COUNT 4.76 Million/uL 3.8 0-5.10 HEMOGLOBIN 11.9 g/dL 11.7-15.5 HEMATOCRIT 38.5 % 35.0-45.0 MCV 80.9 fL 80.0-100.0 MCH 25.0 pg 27.0-33.0 MCHC 30.9 g/dL 32.0-36.0 RDW 20.9 % 11.0-15.0 PLATELET COUNT 464 Thousand/uL 140-400 MPV 9.4 fL 7.5-12.5 ABSOLUTE NEUTROPHILS 3870 cells/uL 1500- 7800 ABSOLUTE LYMPHOCYTES 2670 cells/uL 850-3 900 ABSOLUTE MONOCYTES 355 cells/uL 200-950 ABSOLUTE EOSINOPHILS 163 cells/uL 15-500 ABSOLUTE BASOPHILS 43 cells/uL 0-200 NEUTROPHILS 54.5 % NRG LYMPHOCYTES 37.6 % NRG MONOCYTES 5.0 % NRG EOSINOPHILS 2.3 % NRG BASOPHILS 0.6 % NRG Encounters ACCT No. Visit Date/Time Discharge Status Pt. Type Provider Facility Loc./Unit Complaint [id number] 05/25/2019 08:00:00 05/25/2019 23:59:5 9 [facility] Outpatient SELF, ANDREW [place] [facility] [id number] 05/07/2019 09:45:00 Document Registration [id number] 04/28/2019 13:40:00 Document Registration [id number] 04/07/2019 15:45:00 Document Registration [id number] 01/13/2019 09:30:00 Document Registration [id number] 11/18/2018 11:00:00 Document Registration [id number] 05/04/2019 08:10:00 10:00:00 DIS Outpatient GILMER BOLIVAR, ANDREW [place] [facility] ER FS STOMACH PAIN [id number] 04/02/2019 09:12:00 10:20:00 DIS Emergency ARIEL SANDOVAL DO [facility] ER FS HEADACHE [id number] 01/20/2019 09:06:00 13:00:00 DIS Emergency PACHECO BOLIVAR, CHELY [place] [facility] ER FS VOMITING [id number] 12/23/2018 06:11:00 06:48:00 DIS Emergency LEANDRO BOLIVAR, THUAN [place] [facility] ER FS MIGRAINE [id number] 11/23/2018 06:59:00 07:44:00 DIS Emergency AGUERO DARCI SALAZAR [facility] ER FS MIGRAINE [id number] 10/12/2018 03:35:00 04:43:00 DIS Emergency AGUERO DODARCI [facility] ER FS MIGRAINE [id number] 09/18/2018 06:20:00 07:15:00 DIS Emergency JW BOLIVAR, JEN Allen [facility] ER FS MIGRAINE [id number] 09/11/2018 08:17:00 09:00:00 DIS Emergency JAM MARIE DO [facility] ER FS HEADACHE [id number] 08/15/2018 07:50:00 08:40:00 DIS Emergency JW BOLIVAR, JEN Allen [facility] ER FS MIGRAINE [id number] 08/13/2018 11:50:00 23:59:59 CLS Outpatient ANDREW DONAHUE MD [facility] RAD FS [id number]
== END 2019-05-04 10:00 | disposition home or self-care (01) ==
LOC: EDUNIT# 08:09 → ER FS 08:10
DX: K29.70 Gastritis, unspecified, without bleeding (principal); G43.909 Migraine, unspecified, not intractable, without status migrainosus; F32.9 Major depressive disorder, single episode, unspecified; Z88.8 Allergy status to other drugs, medicaments and biological substances; Z87.891 Personal history of nicotine dependence
CPT/HCPCS: 36415; 80053; 83690; 84703; 85025

== ENCOUNTER 2019-06-16 06:26 | Emergency (ER) | payer OTHER, MEDICAID ==
[~2019-06-16] VITALS: Ht 160 cm; Wt 79.5 kg
[~2019-06-16 06:26] MED LIST changes: +OMEP-280; -OMEP20CA13; +PANT20TA3 PO
--- NOTE | 2019-06-16 06:42 | ED Headache ---
General Chief Complaint: Head/Cervical Problems Stated Complaint: HEADACHE History of Present Illness Date Seen by Provider: Jun 16, 2019 Time Seen by Provider: 06:38 Initial Comments The patient is a 39-year-old female with a history of frequent headaches for which she presents to the emergency department for relief. She is very well- known to this facility. She presents with concern for a mild bilateral frontal gradual onset headache with onset several hours ago overnight which she states feels exactly like her typical migraine headaches. She denies fevers, vomiting, focal weakness, numbness, tingling, neck stiffness/pain/meningismus, vision changes, shortness of breath or chest pain. She denies any injury or trauma to her head. She is alert and oriented 4 and pleasantly and appropriately interactive and in no distress. Allergies and Home Medications Allergies Coded Allergies: zolmitriptan (Unverified Adverse Reaction, Unknown, 08/15/18) Home Medications Pantoprazole Sodium 20 Mg Tablet.dr, 20 MG PO BID Prescribed by: ANDREW SCHERER on 05/04/19 0948 Patient Home Medication List Home Medication List Reviewed: Yes Review of Systems Review of Systems Constitutional: see HPI Past Fcijknv-Lzkbhk-Ndojwp Hx Past Med/Social Hx: Reviewed Nursing Past Med/Soc Hx Patient Social History Alcohol Use: Denies Use Recreational Drug Use: No Type Used: Cigarettes Former Smoker, Quit: October 17, 2017 2nd Hand Smoke Exposure: No Recent Foreign Travel: No Contact w/Someone Who Travel: No Recent Hopitalizations: No Immunizations Up To Date Date of Influenza Vaccine: Mar 04, 2018 Seasonal Allergies Seasonal Allergies: Yes Past Medical History Surgeries: Yes Gallbladder Respiratory: No Cardiac: No Neurological: Yes Headaches /Migraines Genitourinary: No Gastrointestinal: No Musculoskeletal: Yes (RLS) Endocrine: No HEENT: No Cancer: No Psychosocial: Yes Depression Integumentary: No Blood Disorders: No Family Medical History Reviewed Nursing Family Hx Physical Exam Vital Signs Capillary Refill : Height, Weight, BMI Height: 5'3.00" Weight: 160lbs. 0oz. 72.831737ol; 31.00 BMI Method:Stated General Appearance: no apparent distress Comments This is an older female appearing nontoxic and in no acute distress. Head is normocephalic and atraumatic. Neck is supple and nontender. Oropharynx is moist. Lungs are clear to auscultation at all stations. There is a normal S1 and S2 without rubs or gallops and capillary refill is appropriate, less than 2 seconds globally. Abdomen is soft, nontender and nondistended. Skin is warm and dry without cyanosis, clubbing or edema. Psychiatrically, the patient demonstrated appropriate mood and affect and is alert. Neurologically, cranial nerves II through XII are intact and there are no lateralizing deficits noted. Speech is normal. Language is normal. Coordination is normal. There is no dysmetria with wrlolu-nm-xasi or eydd-tu-rujz bilaterally. Strength is 5 out of 5 in all joints of bilateral upper and lower extremities. Sensation is intact to light touch in bilateral upper and lower extremity. The patient is alert and oriented 4 nebula to the narrow, steady gait in the emergency department. Progress/Results/Core Measures Results/Orders My Orders Orders - JOSE LUIS GRACIA MD Ketorolac Injection (Toradol Injection) (06/16/19 06:45) Metoclopramide Injection (Reglan Injecti (06/16/19 06:45) Diphenhydramine Injection (Benadryl Inje (06/16/19 06:45) Progress Progress Note : Time: 06:41 Progress Note No red flags for headache today and no evidence of an emergency medical condition is identified. We will treat the patient with the intramuscular medication she states works best for her and will discharge her to follow up very closely in the next 1-2 days with her primary care physician. She understands that if she feels worse is that of better or develops other new symptoms of concern that she should return to the emergency department right away for reevaluation. All questions are answered. Departure Impression Primary Impression: Headache Qualified Codes: G44.89 - Other headache syndrome Disposition: 01 HOME, SELF-CARE Condition: Improved Departure-Patient Inst. Referrals: SELF,ANDREW BOLIVAR (PCP/Family) Primary Care Physician JOSE LUIS GRACIA MD Jun 16, 2019 06:42
[2019-06-16] MEDS ORDERED: diphenhydrAMINE 50 MG/ML INJ (BENADRYL) IM ONE (06:45)
[2019-06-16] MEDS ORDERED: KETOROLAC 60 MG/2 ML VIAL IM ONE (06:45)
[2019-06-16] MEDS ORDERED: METOCLOPRAMIDE INJ 10 MG/2 ML (REGLAN) IVP ONE (06:45)
[2019-06-16 06:51] VITALS: BP 130/65
== END 2019-06-16 06:51 | disposition home or self-care (01) ==
LOC: EDUNIT# 06:26 → ER FS 06:28
DX: R51 Headache (principal); F32.9 Major depressive disorder, single episode, unspecified; Z88.8 Allergy status to other drugs, medicaments and biological substances; Z87.891 Personal history of nicotine dependence; Z86.69 Personal history of other diseases of the nervous system and sense organs
CPT/HCPCS: 96372; 96374; 99284

== ENCOUNTER 2019-07-21 05:36 | Outpatient (CLI) | payer MEDICARE, MEDICAID ==
[~2019-07-21] VITALS: Ht 160 cm; Wt 78.6 kg
[~2019-07-21 05:36] MED LIST changes: -CITA40TA11; +CITA40TA11 PO; -MELO7.5T46; +MELO7.5T46 PO; -MONT10TA24; +MONT10TA24 PO; -TOPI100T11; +TOPI100T11 PO
[2019-07-21] MEDS ORDERED: CETI10TA17 PO (15:16)
[2019-07-21] MEDS ORDERED: LEVO88TA54 PO (15:16)
[2019-07-21] MEDS ORDERED: PROP20TA5 PO (15:16)
[2019-07-21] MEDS ORDERED: PANT20TA3 PO (15:16)
[2019-07-21] MEDS ORDERED: FERR325T18 PO (15:16)
== END 2019-07-21 15:18 | disposition home or self-care (01) ==
LOC: PREOP 05:36
PROVIDERS: ATTEND Surgery
DX: Z01.818 Encounter for other preprocedural examination (principal)

== ENCOUNTER → 2019-08-06 | Outpatient (CLI) | payer MEDICARE, MEDICAID ==
[~2019-08-06] MED LIST changes: +BARIUM for suspension 96% w/w (Vanilla Silq Medium Density) PO ONE; +BARIUM for suspension 98% w/w (Vanilla Silq High Density) PO ONE; +CETI10TA17 PO; +FERR325T18 PO; +LEVO88TA54 PO; -MONT10TA24 PO; +MONT10TA26 PO; -OMEP-280; +OMEP20CA18; +PROP20TA5 PO
--- NOTE | 2019-08-07 09:22 | Diagnostic Imaging Report ---
EXAMINATION: Upper GI exam. INDICATION: Abdominal pain, partial intestinal obstruction. FINDINGS: The preliminary films of the neck, chest, and abdomen were unremarkable for an acute abnormality. There are no prior studies available for comparison. A double-contrast exam was performed. The patient swallowed the contrast material without difficulty. There was no delay or obstruction of the passage of the barium through the esophagus. There was a small hiatal hernia but there was no sign of gastroesophageal reflux. The stomach shows fairly good distensibility and motility. However, there was delay in gastric emptying. It took approximately five minutes for the contrast to pass from the stomach into the duodenum. Once the contrast did pass into the stomach, it was apparent that the folds of the duodenal bulb were thickened and irregular. This finding is most likely due to duodenitis, either chronic or acute. There is no active ulcer identified, however. There is also some irregularity of the folds of the second portion of the duodenum. The proximal small bowel is unremarkable. IMPRESSION: 1. There was considerable delay in the passage of the contrast from the stomach into the small bowel. However, gradually the contrast did pass into the duodenum. The irregular appearance of the duodenal bulb does suggest either chronic inflammation, active duodenitis, or a combination of both. There is also some irregularity of the folds of the second portion of the duodenum. There is no active ulcer identified, however. 2. There is a small sliding hiatal hernia without evidence for gastroesophageal reflux. 3. The proximal small bowel is unremarkable. Dictated by: Dictated on workstation # [id number]
== END ==
LOC: RAD 10:15
PROVIDERS: ATTEND Surgery
DX: K44.9 Diaphragmatic hernia without obstruction or gangrene (principal); K56.690 Other partial intestinal obstruction
CPT/HCPCS: 74246

== ENCOUNTER 2019-08-16 06:08 | Emergency (ER) | payer MEDICARE, MEDICAID ==
[~2019-08-16] VITALS: Ht 160 cm; Wt 77.3 kg
[~2019-08-16 06:08] MED LIST changes: -BARIUM for suspension 96% w/w (Vanilla Silq Medium Density) PO ONE; -BARIUM for suspension 98% w/w (Vanilla Silq High Density) PO ONE
[2019-08-16] MEDS ORDERED: METOCLOPRAMIDE INJ 10 MG/2 ML (REGLAN) IM/IV STA (06:29)
[2019-08-16] MEDS ORDERED: KETOROLAC 30 MG/ML VIAL IM STA (06:29)
--- NOTE | 2019-08-16 06:29 | ED Headache ---
General Chief Complaint: Head/Cervical Problems Stated Complaint: HEADACHE Nursing Triage Note: Patient suffers from chronic migraines. Patient states that this began at approximately 0200 todays date. Patient rates her pain at an 8 on the 1-10 pain scale. Patient also has a complaint of sore throat and itchy eyes. Nursing Sepsis Screen: No Definite Risk Source: patient History of Present Illness Date Seen by Provider: Aug 16, 2019 Time Seen by Provider: 06:20 Initial Comments 39-year-old female presents with a headache. Patient reports that she's had a migraines since around 2 AM this morning. Patient has a history of chronic migraines. Patient also complains of a sore throat itchy eyes and sneezing. She has a mild cough. No shortness of breath, fever or chills. Allergies and Home Medications Allergies Coded Allergies: zolmitriptan (Verified Adverse Reaction, Unknown, 07/28/19) Home Medications Cetirizine HCl 10 Mg Tablet, 10 MG PO DAILY, (Reported) Citalopram Hydrobromide 40 Mg Tablet, 40 MG PO DAILY, (Reported) Ferrous Sulfate 325 Mg Tablet, 325 MG PO DAILY, (Reported) Levothyroxine Sodium 88 Mcg Tablet, 88 MCG PO HS, (Reported) Montelukast Sodium 10 Mg Tablet, 10 MG PO HS, (Reported) Pantoprazole Sodium 20 Mg Tablet.dr, 20 MG PO BID, (Reported) Propranolol HCl 20 Mg Tablet, 20 MG PO BID, (Reported) Topiramate 100 Mg Tablet, 100 MG PO TID, (Reported) Patient Home Medication List Home Medication List Reviewed: Yes Review of Systems Review of Systems Constitutional: No chills, No fever Eyes: Other (please see history of present illness) Ears, Nose, Mouth, Throat: throat pain Respiratory: cough Cardiovascular: no symptoms reported Gastrointestinal: no symptoms reported Musculoskeletal: no symptoms reported Psychiatric/Neurological: Headache Past Pjvtmff-Yvzkbn-Grrgnz Hx Past Med/Social Hx: Reviewed Nursing Past Med/Soc Hx Patient Social History Type Used: Cigarettes Former Smoker, Quit: October 17, 2017 2nd Hand Smoke Exposure: No Recent Foreign Travel: No Contact w/Someone Who Travel: No Recent Infectious Disease Expo: No Recent Hopitalizations: No Immunizations Up To Date Date of Influenza Vaccine: Mar 04, 2019 Seasonal Allergies Seasonal Allergies: Yes Past Medical History Surgeries: Yes Gallbladder Respiratory: No Cardiac: No Neurological: Yes Headaches /Migraines Genitourinary: No Gastrointestinal: Yes (chronic gastritis) Musculoskeletal: Yes (RLS) Endocrine: No HEENT: No Cancer: No Psychosocial: Yes Depression Integumentary: No Blood Disorders: No Physical Exam Vital Signs Vital Signs - First Documented 08/16/19 06:19 Temp 37.0 Pulse 77 Resp 18 B/P (MAP) 100/66 (77) Pulse Ox 95 O2 Delivery Room Air Capillary Refill : Less Than 3 Seconds Height, Weight, BMI Height: 5'3.00" Weight: 160lbs. 0oz. 72.454973el; 30.00 BMI Method:Stated General Appearance: no apparent distress HEENT: PERRL/EOMI, pharyngeal erythema, other (mild ulcerations/petechiae on posterior pharynx and uvula) Neck: supple Cardiovascular: normal peripheral pulses, regular rate, rhythm, no edema Respiratory: lungs clear, normal breath sounds, no respiratory distress Gastrointestinal: non tender, soft Extremities: normal range of motion, non-tender Psychiatric: alert, oriented x 3 Crainal Nerves: normal hearing, normal speech Coordination/Gait: normal gait Motor/Sensory: no motor deficit, no sensory deficit, no pronator drift Skin: normal color, warm/dry Lymphatic: no adenopathy Progress/Results/Core Measures Results/Orders Lab Results Laboratory Tests Test 08/16/19 06:32 Range/Units Group A Streptococcus Screen POSITIVE H NEGATIVE My Orders Orders - PAZ ANGELO DO Rapid Strep A Screen (08/16/19 06:29) Influenza A And B Antigens (08/16/19 06:29) Ketorolac Injection (Toradol Injection) (08/16/19 06:29) Metoclopramide Injection (Reglan Injecti (08/16/19 06:29) Diphenhydramine Injection (Benadryl Inje (08/16/19 06:30) Penicillin G Benzathine Inject (Bicillin (08/16/19 07:00) Medications Given in ED Current Medications Medications Dose Ordered Sig/Hernan Route Start Time Stop Time Status Last Admin Dose Admin Diphenhydramine HCl 50 mg ONCE ONCE IM 08/16/19 06:30 08/16/19 06:35 DC 08/16/19 06:42 50 MG Vital Signs/I&O 08/16/19 06:19 Temp 37.0 Pulse 77 Resp 18 B/P (MAP) 100/66 (77) Pulse Ox 95 O2 Delivery Room Air Blood Pressure Mean: 77 Departure Impression Primary Impression: Acute streptococcal pharyngitis Additional Impression: Migraine Qualified Codes: G43.709 - Chronic migraine without aura, not intractable, without status migrainosus Disposition: HOME, SELF-CARE Condition: Stable Departure-Patient Inst. Referrals: SELF,ANDREW BOLIVAR (PCP/Family) Primary Care Physician Patient Instructions: Strep Throat (DC), Migraine Headache (DC) Add. Discharge Instructions: Emergency department focuses on treating and ruling out life-threatening diseases. Whenever possible, a diagnosis is given. However, most patients are given an impression based on their history, physical exam, and workup during your brief time in the ER. Information about probable diagnosis and other educational material has been provided. Please take the time to read and understand this information. It is very important that you follow up with a physician as discussed during the visit today. Failure to adhere to your follow-up instructions may lead to severe disability, injury, or so please make sure to keep your appointments or obtain one as requested. Please keep in mind the emergency department is not designed to your primary care or "family doctor" and nonurgent issues are best evaluated by an outpatient physician All discharge instructions reviewed with patient and/or family. Voiced understanding. PAZ ANGELO DO Aug 16, 2019 06:29
[2019-08-16] MEDS ORDERED: diphenhydrAMINE 50 MG/ML INJ (BENADRYL) IM ONE (06:30)
[2019-08-16 06:56] VITALS: BP 100/66
[2019-08-16] MEDS ORDERED: PEN G BENZ (BICILLIN LA) 1.2 M UN/2 ML SYR IM ONE (07:00)
--- OUTSIDE RECORDS SUMMARY | 2019-08-17 17:35 | XMS REPORT | Continuity of Care Document ---
Author Organization Unknown Address Unknown Phone Unavailable Allergies Active Description Code Type Severity Reaction Onset Reported/Identified Relationship to Patient Clinical Status Yes zolmitriptan [id number] Drug Allergy Unknown N/A 07/28/2019 Medications There is no data. Problems Date [...] OF LEFT LOWER LEG, MCNEAL 09/11/2018 JAM MRAIE DO Ot F32 .9 MAJOR DEPRESSIVE DISORDER, SINGLE EPISOD 09/11/2018 JAM MARIE DO Ot G25.81 RESTLESS LEGS SYNDROME 09/11/2018 JAM MARIE DO, Ot G43.909 MIGRAINE, UNSP, NOT INTRACTABLE, WITHOUT 09/11/2018 JAM MARIE DO Ot R51 HEADACHE 09/11/2018 JAM MARIE DO, Ot Z88 .8 ALLERGY STATUS TO OTH DRUG/MEDS/BIOL SUB 09/13/2018 JAM MARIE DO Alejandro Ot F32 .9 MAJOR DEPRESSIVE DISORDER, SINGLE EPISOD 09/13/2018 FRANK DOJAM Alejandro Ot G25.81 RESTLESS LEGS SYNDROME [...] AGUERO DO, DARCI Ot R51 HEADACHE 11/25/2018 HOLLIS DO, DARCI Ot Z88.8 ALLERGY STATUS TO [...] G43.909 MIGRAINE, UNSP, NOT INTRACTABLE, WITHOUT 01/10/2019 LEANRDO BOLIVAR, JAM hayes Z87.891 PERSONAL HISTORY OF [...] UNSPECIFIED INJURY OF LEFT LOWER LEG, MCNEAL 05/04/2019 ANDREW SCHERER MD Ot F32. 9 MAJOR DEPRESSIVE DISORDER, SINGLE EPISOD 05/04/2019 ANDREW SCHERER MD Ot G43.909 MIGRAINE, UNSP, NOT INTRACTABLE, WITHOUT 05/04/2019 GILMER BOLIVAR, ADNREW Hyoos Ot K29. 70 GASTRITIS, UNSPECIFIED, WITHOUT BLEEDING 05/04/2019 ANDREW SCHERER MD Ot R10. 11 RIGHT UPPER QUADRANT PAIN 05/04/2019 ANDREW SCHERER MD Ot Z87.891 PERSONAL HISTORY OF NICOTINE DEPENDENCE 05/04/2019 ANDREW SCHERER MD Ot Z88. 8 ALLERGY STATUS TO OTH DRUG/MEDS/BIOL SUB 05/09/2019 ANDREW SCHERER MD Ot F32. 9 [...] 8 ALLERGY STATUS TO OTH DRUG/MEDS/BIOL SUB 06/16/2019 JOSE LUIS GRACIA MD Ot F32. 9 MAJOR DEPRESSIVE DISORDER, SINGLE EPISOD 06/16/2019 JOSE LUIS GRACIA MD Ot R51 HEADACHE 06/16/2019 JOSE LUIS GRACIA MD Ot Z86. 69 PERSONAL HISTORY OF DIS OF THE NERVOUS S 06/16/2019 JOSE LUIS GRACIA MD Ot Z87.891 PERSONAL HISTORY OF NICOTINE DEPENDENCE 06/16/2019 JOSE LUIS GRACIA MD Ot Z88. 8 ALLERGY STATUS TO OTH DRUG/MEDS/BIOL SUB 06/20/2019 JOSE LUIS GRACIA MD Ot F32. 9 MAJOR DEPRESSIVE DISORDER, SINGLE EPISOD 06/20/2019 SAMIA BOLIVAR, JOSE LUIS Rueda Ot R51 HEADACHE 06/20/2019 SAMIA BOLIVAR, JOSE LUIS Rueda Ot Z86. 69 PERSONAL HISTORY OF DIS OF THE NERVOUS S 06/20/2019 SAMIA BOLIVAR, JOSE LUIS Rueda Ot Z87.891 PERSONAL HISTORY OF NICOTINE DEPENDENCE 06/20/2019 SAMIA BOLIVAR, JOSE LUIS Rueda Ot Z88. 8 ALLERGY STATUS TO OTH DRUG/MEDS/BIOL SUB 07/06/2019 SELF , ANDREW Ot S89.92 XD UNSPECIFIED INJURY OF LEFT LOWER LEG, MCNEAL 07/16/2019 SELF , ANDREW Ot S89.92 XD UNSPECIFIED INJURY OF LEFT LOWER LEG, MCNEAL 07/21/2019 SELF , ANDREW Ot S89.92 XD UNSPECIFIED INJURY OF LEFT LOWER LEG, MCNEAL 07/21/2019 DELERNESTO DO, JOSE B Ot Z01.8 18 ENCOUNTER FOR OTHER PREPROCEDURAL EXAMIN 07/24/2019 DELMAN DO, JOSE B Ot Z01.8 18 ENCOUNTER FOR OTHER PREPROCEDURAL EXAMIN 07/28/2019 SELF , ANDREW Ot S89.92 XD UNSPECIFIED INJURY OF LEFT LOWER LEG, MCNEAL 07/28/2019 DELMAN DO, JOSE B Ot E66.9 OBESITY, UNSPECIFIED 07/28/2019 DELMAN DO, JOSE B Ot F32.9 MAJOR DEPRESSIVE DISORDER, SINGLE EPISOD 07/28/2019 DELMAN DO, JOSE B Ot G43.9 09 MIGRAINE, UNSP, NOT INTRACTABLE, WITHOUT 07/28/2019 DELMAN DO, JOSE B Ot I10 ESSENTIAL (PRIMARY) HYPERTENSION 07/28/2019 KANA DO, JOSE B Ot K21.0 GASTRO-ESOPHAGEAL REFLUX DISEASE WITH ES 07/28/2019 DELMAN DO, JOSE B Ot K26.9 DUODENAL ULCER, UNSP ACUTE OR CHRONIC 07/28/2019 DELMAN DO, JOSE B Ot K29.5 0 UNSPECIFIED CHRONIC GASTRITIS WITHOUT BL 07/28/2019 DELMAN DO, JOSE B Ot K29.8 0 DUODENITIS WITHOUT BLEEDING 07/28/2019 DELMAN DO, JOSE B Ot K31.5 OBSTRUCTION OF DUODENUM 07/28/2019 DELMAN DO, JOSE B Ot K31.8 9 OTHER DISEASES OF STOMACH AND DUODENUM 07/28/2019 DELMAN DO, JOSE B Ot K44.9 DIAPHRAGMATIC HERNIA WITHOUT OBSTRUCTION 07/28/2019 KANA SALAZAR, JOSE B Ot Z68.3 0 BODY MASS INDEX (BMI) 30.0-30.9, ADULT 07/28/2019 KANA SALAZAR JOSE B Ot Z79.8 91 SKILLED NURSING (CURRENT) USE OF OPIATE ANALGE 07/28/2019 KANA SALAZAR, JOSE B Ot Z79.8 99 OTHER SKILLED NURSING (CURRENT) DRUG THERAPY 07/28/2019 KANA SALAZAR JOSE B Ot Z80.9 FAMILY HISTORY OF MALIGNANT NEOPLASM, UN 07/28/2019 KANA SALAZAR JOSE B Ot Z88.8 ALLERGY STATUS TO OTH DRUG/MEDS/BIOL SUB 07/28/2019 FRANKERNESTO SALAZAR JOSE B Ot Z90.4 9 ACQUIRED ABSENCE OF OTHER SPECIFIED PART 07/30/2019 SELF ANDREW BOLIVAR Ot S89.92 XD UNSPECIFIED INJURY OF LEFT LOWER LEG, MCNEAL 08/01/2019 FRANKERNESTO SALAZAR, JOSE B Ot E66.9 OBESITY, UNSPECIFIED 08/01/2019 FRANKERNESTO SALAZAR JOSE B Ot F32.9 MAJOR DEPRESSIVE DISORDER, SINGLE EPISOD 08/01/2019 KANA SALAZAR, JOSE B Ot G43.9 09 MIGRAINE, UNSP, NOT INTRACTABLE, WITHOUT 08/01/2019 FRANKERNESTO SALAZAR, JOSE B Ot I10 ESSENTIAL (PRIMARY) HYPERTENSION 08/01/2019 KANA SALAZAR, JOSE B Ot K21.0 GASTRO-ESOPHAGEAL REFLUX DISEASE WITH ES 08/01/2019 KANA SALAZAR, JOSE B Ot K26.9 DUODENAL ULCER, UNSP ACUTE OR CHRONIC 08/01/2019 FRANKERNESTO SALAZAR, JOSE B Ot K29.5 0 UNSPECIFIED CHRONIC GASTRITIS WITHOUT BL 08/01/2019 FRANKERNESTO SALAZAR, JOSE B Ot K29.8 0 DUODENITIS WITHOUT BLEEDING 08/01/2019 KANA SALAZAR, JOSE B Ot K31.5 OBSTRUCTION OF DUODENUM 08/01/2019 FRANKERNESTO SALAZAR, JOSE B Ot K31.8 9 OTHER DISEASES OF STOMACH AND DUODENUM 08/01/2019 FRANKERNESTO SALAZAR, JOSE B Ot K44.9 DIAPHRAGMATIC HERNIA WITHOUT OBSTRUCTION 08/01/2019 KANA SALAZAR, JOSE B Ot Z68.3 0 BODY MASS INDEX (BMI) 30.0-30.9, ADULT 08/01/2019 FRANKERNESTO SALAZAR, JOSE B Ot Z79.8 91 SKILLED NURSING (CURRENT) USE OF OPIATE ANALGE 08/01/2019 ANA M ROGER DOIC B Ot Z79.8 99 OTHER SKILLED NURSING (CURRENT) DRUG THERAPY 08/01/2019 ANA M ROGER DOIC B Ot Z80.9 FAMILY HISTORY OF MALIGNANT NEOPLASM, UN 08/01/2019 ANA M ROGER DOIC B Ot Z88.8 ALLERGY STATUS TO OTH DRUG/MEDS/BIOL SUB 08/01/2019 ANA M ROGER DOIC B Ot Z90.4 9 ACQUIRED ABSENCE OF OTHER SPECIFIED PART 08/06/2019 SELF ANDREW BOLIVAR Ot S89.92 XD UNSPECIFIED INJURY OF LEFT LOWER LEG, MCNEAL 08/06/2019 SELF ANDREW BOLIVAR Ot S89.92 XD UNSPECIFIED INJURY OF LEFT LOWER LEG, MCNEAL 08/08/2019 KANA SALAZAR JOSE B Ot K44.9 DIAPHRAGMATIC HERNIA WITHOUT OBSTRUCTION 08/08/2019 KANA SALAZAR JOSE B Ot K56.6 90 OTHER PARTIAL INTESTINAL OBSTRUCTION 08/08/2019 SELF ANDREW BOLIVAR Ot S89.92 XD UNSPECIFIED INJURY OF LEFT LOWER LEG, MCNEAL 08/08/2019 KANA SALAZAR JOSE B Ot K44.9 DIAPHRAGMATIC HERNIA WITHOUT OBSTRUCTION 08/08/2019 KANA SALAZAR JOSE B Ot K56.6 90 OTHER PARTIAL INTESTINAL OBSTRUCTION Procedures There is no data. Results Test Result Range HEP B SURFACE ANTIGEN - 11/18/18 11:17 HEPATITIS B SURFACE ANTIGEN NON-REACTIVE NON-REACTIVE CMP - 01/13/19 09:45 GLUCOSE 96 mg/dL 65-99 UREA NITROGEN (BUN) 17 mg/dL 7-25 CREATININE 0.81 mg/dL 0.50-1.10 eGFR NON-AFR. KAZAKH 91 mL/min/1.73m2 > OR = 60 eGFR [...] TEST NAME: IRON, TIBC AND FERRITIN PANEL NR TEST CODE: [id number] NR CLIENT CONTACT: MANASA POWERS NR REPORT ALWAYS MESSAGE SIGNATURE NRG COMMENT NRG BMP - 04/28/19 14:08 GLUCOSE 91 mg/dL 65-99 UREA NITROGEN (BUN) 28 mg/dL 7-25 CREATININE 0.91 mg/dL 0.50-1.10 eGFR NON-AFR. KAZAKH 78 mL/min/1.73m2 > OR = 60 eGFR [...] 2.3 % NRG BASOPHILS 0.6 % NRG CMP - 06/05/19 12:00 GLUCOSE 87 mg/dL 65-99 UREA NITROGEN (BUN) 19 mg/dL 7-25 CREATININE 0.89 mg/dL 0.50-1.10 eGFR NON-AFR. KAZAKH 81 mL/min/1.73m2 > OR = 60 eGFR 93 mL/min/1.73m2 > OR = 60 BUN/CREATININE RATIO NOT APPLICABLE (calc) 6-22 SODIUM 142 mmol/L 135-146 POTASSIUM 4.5 mmol/L 3.5-5.3 CHLORIDE 110 mmol/L 98-110 CARBON DIOXIDE 22 mmol/L 20-32 CALCIUM 9.6 mg/dL 8.6-10.2 PROTEIN, TOTAL 7.0 g/dL 6.1-8.1 ALBUMIN 4.4 g/dL 3.6-5.1 GLOBULIN 2.6 g/dL (calc) 1.9-3.7 ALBUMIN/GLOBULIN RATIO 1.7 (calc) 1.0-2. 5 BILIRUBIN, TOTAL 0.3 mg/dL 0.2-1.2 ALKALINE PHOSPHATASE 137 U/L 33-115 AST 15 U/L 10-30 ALT 10 U/L 6-29 LIPASE - 06/05/19 12:00 LIPASE 31 U/L 7-60 AMYLASE - 06/05/19 12:00 AMYLASE 35 U/L 21-101 Streptococcus pyogenes antigen detection - 08/16/19 06:32 Streptococcus pyogenes antigen detection POSITIVE NEGATIVE Influenza virus A and B antigen detectio n - 08/16/19 06:32 FLU RESULT NEGATIVE FOR INFLUENZA A AND B ANTIGENS BY IA NRG Encounters ACCT No. Visit Date/Time Discharge Status Pt. Type Provider Facility Loc./Unit Complaint [id number] 06/05/2019 11:00:00 06/05/2019 23:59:5 9 CLS Outpatient SELF, ANDREW Chavarria [facility] [id number] 06/05/2019 11:00:00 Document Registration [id number] 05/07/2019 09:45:00 Document Registration [id number] 04/28/2019 13:40:00 Document Registration [id number] 04/07/2019 15:45:00 Document Registration [id number] 01/13/2019 09:30:00 Document Registration [id number] 11/18/2018 11:00:00 Document Registration [id number] 08/06/2019 10:15:00 23:59:59 CLS Outpatient JOSE ROGER DO [facility] RAD OTHER PARTIAL INTESTINA L OBSTRUCTION [id number] 07/28/2019 08:01:00 10:35:00 DIS Outpatient JOSE ROGER DO [facility] ENDO CHRONIC GASTRITIS [id number] 07/21/2019 05:36:00 15:18:00 DIS Outpatient JOSE ROGER DO [facility] PREOP EGD [id number] 06/16/2019 06:28:00 06:51:00 DIS Emergency SAMIA BOLIVAR, JOSE LUIS Rueda [facility] ER FS HEADACHE [id number] 05/04/2019 08:10:00 10:00:00 DIS Emergency ANDREW SCHERER MD [facility] ER FS STOMACH PAIN [id number] 04/02/2019 09:12:00 10:20:00 DIS Emergency ARIEL SANDOVAL DO [facility] ER FS HEADACHE [id number] 01/20/2019 09:06:00 13:00:00 DIS Emergency PACHECO BOLIVAR, CHELY S [facility] ER FS VOMITING [id number] 12/23/2018 06:11:00 06:48:00 DIS Emergency LEANDRO BOLIVAR, THUAN Hoyos [facility] ER FS MIGRAINE [id number] 11/23/2018 06:59:00 07:44:00 DIS Emergency AGUERO DODARCI [facility] ER FS MIGRAINE [id number] 10/12/2018 03:35:00 04:43:00 DIS Emergency AGUERO DODARCI [facility] ER FS MIGRAINE [id number] 09/18/2018 06:20:00 07:15:00 DIS Emergency JW BOLIVAR, JEN Allen [facility] ER FS MIGRAINE [id number] 09/11/2018 08:17:00 09:00:00 DIS Emergency FRANK SALAZAR, JAM Allen [facility] ER FS HEADACHE [id number] 08/15/2018 07:50:00 08:40:00 DIS Emergency JW BOLIVAR, JEN Allen [facility] ER FS MIGRAINE [id number] 08/13/2018 11:50:00 23:59:59 [facility] Outpatient ANDREW DONAHUE MD [facility] RAD FS [id number] 08/16/2019 06:46:00 Document Registration
== END 2019-08-16 06:56 | disposition home or self-care (01) ==
LOC: EDUNIT# 06:08 → ER FS 06:10
DX: G43.909 Migraine, unspecified, not intractable, without status migrainosus (principal); J02.0 Streptococcal pharyngitis; F32.9 Major depressive disorder, single episode, unspecified; Z88.8 Allergy status to other drugs, medicaments and biological substances; Z87.891 Personal history of nicotine dependence
CPT/HCPCS: 87430; 87804

== ENCOUNTER 2019-10-02 12:04 | Outpatient (RCR) | payer MEDICARE, MEDICAID ==
[~2019-10-02] VITALS: Ht 160 cm; Wt 77.3 kg
== END 2019-10-02 18:25 | disposition home or self-care (01) ==
LOC: PREOP 12:04
PROVIDERS: ATTEND Surgery
DX: Z01.818 Encounter for other preprocedural examination (principal); Z11.59 Encounter for screening for other viral diseases
CPT/HCPCS: 87635

== ENCOUNTER 2019-10-07 05:58 | Emergency (ER) | payer MEDICARE, MEDICAID ==
[~2019-10-07] VITALS: Ht 160 cm; Wt 77.2 kg
--- OUTSIDE RECORDS SUMMARY | 2019-10-07 06:06 | XMS REPORT | Continuity of Care Document ---
Author Organization Unknown Address Unknown Phone Unavailable Allergies Active Description Code Type Severity Reaction Onset Reported/Identified Relationship to Patient Clinical Status Yes zolmitriptan [id number] Drug Allergy Unknown N/A 09/29/2019 Medications There is no data. Problems Date Dx Coded Attending Type Code Diagnosis Diagnosed By 05/03/1824 JOSE ROGER DO, Ot Z01.8 18 ENCOUNTER FOR OTHER PREPROCEDURAL EXAMIN 05/03/1824 JOSE ROGER DO Ot Z11.5 9 ENCOUNTER FOR SCREENING FOR OTHER VIRAL 08/14/2018 ANDREW DONAHUE MD Ot S89.92 XD [...] DO Ot G25.81 RESTLESS LEGS SYNDROME 09/11/2018 FRANK DO, JAM M Ot G43.909 MIGRAINE, UNSP, NOT INTRACTABLE, WITHOUT 09/11/2018 FRANK DO JAM Allen Ot R51 HEADACHE 09/11/2018 JAM MARIE DO Ot Z88 .8 ALLERGY STATUS TO OTH DRUG/MEDS/BIOL SUB 09/13/2018 FRANK SALAZAR JAM Allen Ot F32 .9 MAJOR DEPRESSIVE DISORDER, SINGLE EPISOD 09/13/2018 FRANK DO, JAM Allen Ot G25.81 RESTLESS LEGS SYNDROME 09/13/2018 FRANK DO, JAM Allen Ot G43.909 MIGRAINE, UNSP, NOT INTRACTABLE, WITHOUT 09/13/2018 FRANK SALAZAR JAM Allen Ot R51 HEADACHE 09/13/2018 FRANK SALAZAR JAM Allen Ot Z88 .8 ALLERGY STATUS TO OTH DRUG/MEDS/BIOL SUB 09/18/2018 JW BOLIVAR, JEN Allen Ot F32 .9 MAJOR DEPRESSIVE DISORDER, SINGLE EPISOD 09/18/2018 JEN ESCALERA MD Ot G25.81 RESTLESS LEGS SYNDROME 09/18/2018 JEN ESCALERA MD Ot G43.909 MIGRAINE, UNSP, NOT INTRACTABLE, WITHOUT 09/18/2018 JEN ESCALERA MD Ot Z88 .8 ALLERGY STATUS TO OTH DRUG/MEDS/BIOL SUB 09/18/2018 JW BOLIVAR, JEN Allen Ot Z98.890 OTHER SPECIFIED POSTPROCEDURAL STATES 09/20/2018 JEN ESCALERA MD Ot F32 .9 MAJOR DEPRESSIVE DISORDER, SINGLE EPISOD 09/20/2018 JEN ESCALERA MD Ot G25.81 RESTLESS LEGS SYNDROME 09/20/2018 JEN ESCALERA MD Ot G43.909 MIGRAINE, UNSP, NOT INTRACTABLE, WITHOUT 09/20/2018 JW BOLIVAR, JEN Allen Ot Z88 .8 ALLERGY STATUS TO OTH DRUG/MEDS/BIOL SUB 09/20/2018 JW BOLIVAR, JEN Allen Ot Z98.890 OTHER SPECIFIED POSTPROCEDURAL STATES 10/12/2018 DARCI AGUERO DO Ot F32.9 MAJOR DEPRESSIVE DISORDER, SINGLE EPISOD 10/12/2018 DARCI AGUERO DO Ot G25.81 RESTLESS LEGS SYNDROME 10/12/2018 DARCI AGUERO DO Ot G43.909 MIGRAINE, UNSP, NOT INTRACTABLE, WITHOUT 10/12/2018 DARCI AGUERO DO Ot Z87.891 PERSONAL HISTORY OF NICOTINE DEPENDENCE 10/12/2018 DARCI AGUERO DO Ot Z88.8 ALLERGY STATUS TO OTH DRUG/MEDS/BIOL SUB 10/12/2018 AGUERO DO, DARCI Ot Z98.890 OTHER SPECIFIED POSTPROCEDURAL STATES 10/16/2018 AGUERO DO, DARCI Ot F32.9 MAJOR DEPRESSIVE [...] AGUERO DO, DARCI Ot R51 HEADACHE 11/25/2018 AGUERO DO, DARCI Ot Z88.8 ALLERGY STATUS [...] OF NICOTINE DEPENDENCE 01/08/2019 LEANDRO BOLIVAR, JAM Noble t Z88.8 ALLERGY STATUS TO OTH DRUG/MEDS/BIOL SUB [...] URINARY TRACT INFECTION, SITE NOT SPECIF 01/20/2019 PACHECO BOLIVAR, CHELY Linn Ot R11. 2 [...] 9 MAJOR DEPRESSIVE DISORDER, SINGLE EPISOD 04/02/2019 JAIME SALAZAR ARIEL B Ot G43.909 MIGRAINE, UNSP, NOT INTRACTABLE, WITHOUT 04/02/2019 ARIEL SANDOVAL DO Ot R51 HEADACHE 04/02/2019 JAIME SALAZAR ARIEL B Ot Z87.891 PERSONAL HISTORY OF NICOTINE DEPENDENCE 04/02/2019 ARIEL SANDOVAL DO Ot Z88. 8 ALLERGY STATUS TO OTH DRUG/MEDS/BIOL SUB 04/21/2019 ANDREW DONAHUE MD Ot S89.92 XD UNSPECIFIED INJURY OF LEFT LOWER LEG, MCNEAL 05/04/2019 GILMER BOLIVAR, ANDREW Hoyos Ot F32. 9 MAJOR DEPRESSIVE DISORDER, SINGLE EPISOD 05/04/2019 ANDREW SCHERER MD Ot G43.909 MIGRAINE, UNSP, NOT INTRACTABLE, WITHOUT 05/04/2019 GILMER BOLIVAR, ANDREW Hoyos Ot K29. 70 GASTRITIS, UNSPECIFIED, WITHOUT BLEEDING [...] K29. 70 GASTRITIS, UNSPECIFIED, WITHOUT BLEEDING 05/09/2019 GILMER BOLIVAR, ANDREW J Ot R10. 11 RIGHT UPPER QUADRANT PAIN [...] OF THE NERVOUS S 06/16/2019 JOSE LUIS GARCIA MD Ot Z87.891 PERSONAL HISTORY OF NICOTINE DEPENDENCE 06/16/2019 SAMIA BOLIVAR, JOSE LUIS Rueda Ot Z88. 8 ALLERGY STATUS TO OTH DRUG/MEDS/BIOL SUB 06/20/2019 JOSE LUIS GRACIA MD Ot F32. 9 MAJOR DEPRESSIVE DISORDER, SINGLE EPISOD 06/20/2019 JOSE LUIS GRACIA MD Ot R51 HEADACHE 06/20/2019 JOSE LUIS GRACIA MD Ot Z86. 69 PERSONAL HISTORY OF DIS OF THE NERVOUS S 06/20/2019 JOSE LUIS GRACIA MD Ot Z87.891 PERSONAL HISTORY OF NICOTINE DEPENDENCE 06/20/2019 JOSE LUIS GRACIA MD Ot Z88. 8 ALLERGY STATUS TO OTH DRUG/MEDS/BIOL SUB 07/06/2019 SELF , ANDREW Ot S89.92 XD UNSPECIFIED INJURY OF LEFT LOWER LEG, MCNEAL 07/16/2019 SELF , ANDREW Ot S89.92 XD UNSPECIFIED INJURY OF LEFT LOWER LEG, MCNEAL 07/21/2019 SELF , ANDREW Ot S89.92 XD UNSPECIFIED INJURY OF LEFT LOWER LEG, MCNEAL 07/21/2019 KANA DO, JOSE B Ot Z01.8 18 ENCOUNTER FOR OTHER PREPROCEDURAL EXAMIN 07/24/2019 KANA DO, JOSE B Ot Z01.8 18 ENCOUNTER FOR OTHER PREPROCEDURAL EXAMIN 07/28/2019 SELF , ANDREW Ot S89.92 XD UNSPECIFIED INJURY OF LEFT LOWER LEG, MCNEAL 07/28/2019 KANA DO, JOSE B Ot E66.9 OBESITY, UNSPECIFIED 07/28/2019 KANA DO, JOSE B Ot F32.9 MAJOR DEPRESSIVE DISORDER, SINGLE EPISOD 07/28/2019 DELMAN DO, JOSE B Ot G43.9 09 MIGRAINE, UNSP, NOT INTRACTABLE, WITHOUT 07/28/2019 DELMAN DO, JOSE B Ot I10 ESSENTIAL (PRIMARY) HYPERTENSION 07/28/2019 KANA DO, JOSE B Ot K21.0 GASTRO-ESOPHAGEAL REFLUX DISEASE WITH ES 07/28/2019 KANA DO, JOSE B Ot K26.9 DUODENAL ULCER, UNSP ACUTE OR CHRONIC 07/28/2019 DELMAN DO, JOSE B Ot K29.5 0 UNSPECIFIED CHRONIC GASTRITIS WITHOUT BL 07/28/2019 KANA DO, JOSE B Ot K29.8 0 DUODENITIS WITHOUT BLEEDING 07/28/2019 [facility] , JOSE B Ot K31.5 OBSTRUCTION OF DUODENUM [facility]/28/[facility] K31.8 9 OTHER DISEASES OF STOMACH AND DUODENUM 07/28/2019 [facility] B Ot K44.9 DIAPHRAGMATIC HERNIA WITHOUT OBSTRUCTION 07/28/2019 [facility], JOSE B Ot Z68.3 0 BODY MASS INDEX (BMI) 30.0-30.9, ADULT 07/28/2019 FRANKERNESTO SALAZAR, JOSE B Ot Z79.8 91 CUSTODIAL (CURRENT) USE OF OPIATE ANALGE 07/28/2019 [facility] B Ot Z79.8 99 OTHER CUSTODIAL (CURRENT) DRUG THERAPY 07/28/2019 [facility] B Ot Z80.9 FAMILY HISTORY OF MALIGNANT NEOPLASM, UN 07/28/2019 [facility] JOSE B Ot Z88.8 ALLERGY STATUS TO OTH DRUG/MEDS/BIOL SUB 07/28/2019 [facility] DO JOSE B Ot Z90.4 9 ACQUIRED ABSENCE OF OTHER SPECIFIED PART 07/30/2019 SELF ANDREW BOLIVAR Ot S89.92 XD UNSPECIFIED INJURY OF LEFT LOWER LEG, MCNEAL 08/01/2019 [facility], JOSE B Ot E66.9 OBESITY, UNSPECIFIED 08/01/2019 [facility] B Ot F32.9 MAJOR DEPRESSIVE DISORDER, SINGLE EPISOD 08/01/2019 [facility] , JOSE B Ot G43.9 09 MIGRAINE, UNSP, NOT INTRACTABLE, WITHOUT 08/01/2019 KANA SALAZAR, JOSE B Ot I10 ESSENTIAL (PRIMARY) HYPERTENSION 08/01/2019 [facility] , JOSE B Ot K21.0 GASTRO-ESOPHAGEAL REFLUX DISEASE WITH ES 08/01/2019 [facility] , JOSE B Ot K26.9 DUODENAL ULCER, UNSP ACUTE OR CHRONIC 08/01/2019 [facility] , JOSE B Ot K29.5 0 UNSPECIFIED CHRONIC GASTRITIS WITHOUT BL 08/01/2019 [facility] , JOSE B Ot K29.8 0 DUODENITIS WITHOUT BLEEDING 08/01/2019 [facility] , JOSE B Ot K31.5 OBSTRUCTION OF DUODENUM 08/01/2019 KANA SALAZAR, JOSE B Ot K31.8 9 OTHER DISEASES OF STOMACH AND DUODENUM 08/01/2019 [facility] , JOSE B Ot K44.9 DIAPHRAGMATIC HERNIA WITHOUT OBSTRUCTION 08/01/2019 KANA SALAZAR, JOSE B Ot Z68.3 0 BODY MASS INDEX (BMI) 30.0-30.9, ADULT 08/01/2019 KANA SALAZAR, JOSE B Ot Z79.8 91 VEGETABLE TIER (CURRENT) USE OF OPIATE ANALGE 08/01/2019 KANA SALAZAR, JOSE B Ot Z79.8 99 OTHER VEGETABLE TIER (CURRENT) DRUG THERAPY 08/01/2019 KANA SALAZAR, JOSE B Ot Z80.9 FAMILY HISTORY OF MALIGNANT NEOPLASM, UN 08/01/2019 KANA SALAZAR, JOSE B Ot Z88.8 ALLERGY STATUS TO [facility] DRUG/MEDS/BIOL SUB 08/01/2019 KANA SALAZAR, JOSE B Ot Z90.4 9 ACQUIRED ABSENCE OF OTHER SPECIFIED PART 08/06/2019 SELF , ANDREW Ot S89.92 XD UNSPECIFIED INJURY OF LEFT LOWER LEG, MCNEAL 08/06/2019 SELF ANDREW BOLIVAR Ot S89.92 XD UNSPECIFIED INJURY OF LEFT LOWER LEG, MCNEAL 08/08/2019 KANA SALAZAR, JOSE B Ot K44.9 DIAPHRAGMATIC HERNIA WITHOUT OBSTRUCTION 08/08/2019 [facility] , JOSE B Ot K56.6 90 OTHER PARTIAL INTESTINAL OBSTRUCTION 08/08/2019 SELF ANDREW BOLIVAR Ot S89.92 XD UNSPECIFIED INJURY OF LEFT LOWER LEG, MCNEAL 08/08/2019 KANA SALAZAR, JOSE B Ot K44.9 DIAPHRAGMATIC HERNIA WITHOUT OBSTRUCTION 08/08/2019 [facility] , JOSE B Ot K56.6 90 OTHER PARTIAL INTESTINAL OBSTRUCTION 08/16/2019 Ot F32.9 VITO R DEPRESSIVE DISORDER, SINGLE EPISOD 08/16/2019 Ot G43.909 SC GRAINE, UNSP, NOT INTRACTABLE, WITHOUT 08/16/2019 Ot J02.0 STRE PTOCOCCAL PHARYNGITIS 08/16/2019 Ot R51 HEADACHE 08/16/2019 Ot 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 08/16/2019 Ot Z88.8 NAGI RGY STATUS TO [facility] DRUG/MEDS/BIOL SUB 08/18/2019 KANA SALAZAR, JOSE B Ot K44.9 DIAPHRAGMATIC HERNIA WITHOUT OBSTRUCTION 08/18/2019 KANA SALAZAR, JOSE B Ot K56.6 90 OTHER PARTIAL INTESTINAL OBSTRUCTION 08/19/2019 Ot F32.9 VITO R DEPRESSIVE DISORDER, SINGLE EPISOD 08/19/2019 Ot G43.909 SC GRAINE, UNSP, NOT INTRACTABLE, WITHOUT 08/19/2019 Ot J02.0 STRE PTOCOCCAL PHARYNGITIS 08/19/2019 Ot R51 HEADACHE 08/19/2019 Ot 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 08/19/2019 Ot Z88.8 NAGI RGY STATUS TO [facility] DRUG/MEDS/BIOL SUB 09/30/2019 DELMAN DO, JOSE B Ot Z01.8 18 ENCOUNTER FOR OTHER PREPROCEDURAL EXAMIN 10/02/2019 DELMAN DO, JOSE B Ot Z01.8 18 ENCOUNTER FOR OTHER PREPROCEDURAL EXAMIN 10/02/2019 DELMAN DO, JOSE B Ot Z01.8 18 ENCOUNTER FOR OTHER PREPROCEDURAL EXAMIN 10/02/2019 DELMAN DO, JOSE B Ot Z11.5 9 ENCOUNTER FOR SCREENING FOR OTHER VIRAL 10/06/2019 SELF ANDREW BOLIVAR Ot S89.92 XD UNSPECIFIED INJURY OF LEFT LOWER LEG, MCNEAL 10/06/2019 DELCARSON DO, JOSE B Ot K44.9 DIAPHRAGMATIC HERNIA WITHOUT OBSTRUCTION 10/06/2019 DELCARSON DO, JOSE B Ot K56.6 90 OTHER PARTIAL INTESTINAL OBSTRUCTION 10/07/2019 SELF ANDREW BOLIVAR Ot S89.92 XD UNSPECIFIED INJURY OF LEFT LOWER LEG, MCNEAL 10/07/2019 DELMAN DO, OJSE B Ot K44.9 DIAPHRAGMATIC HERNIA WITHOUT OBSTRUCTION 10/07/2019 DELMAN DO, JOSE B Ot K56.6 90 OTHER PARTIAL INTESTINAL OBSTRUCTION Procedures There is no data. Results Test Result Range HEP B SURFACE ANTIGEN - 11/18/18 11:17 HEPATITIS B SURFACE ANTIGEN NON-REACTIVE NON-REACTIVE CMP - 01/13/19 09:45 GLUCOSE 96 mg/dL 65-99 UREA NITROGEN (BUN) 17 mg/dL 7-25 CREATININE 0.81 mg/dL 0.50-1.10 eGFR NON-AFR. NAURUAN 91 mL/min/1.73m2 > OR = 60 eGFR [...] 7-25 CREATININE 0.91 mg/dL 0.50-1.10 eGFR NON-AFR. NAURUAN 78 mL/min/1.73m2 > OR = 60 eGFR [...] 7-25 CREATININE 0.89 mg/dL 0.50-1.10 eGFR NON-AFR. NAURUAN 81 mL/min/1.73m2 > OR = 60 eGFR [...] A AND B ANTIGENS BY IA NRG Coronavirus SARS-CoV-2 SO 2018 0 13:00 Coronavirus Ab [Units/volume] in Serum Negative Negative Encounters ACCT No. Visit Date/Time Discharge Status Pt. Type Provider Facility Loc./Unit Complaint [id number] 06/05/2019 11:00:00 06/05/2019 23:59:5 9 [facility] Outpatient [facility], ANDREW Chavarria [facility] [id number] 06/05/2019 11:00:00 Document Registration [id number] 05/07/2019 09:45:00 Document Registration [id number] 04/28/2019 13:40:00 Document Registration [id number] 04/07/2019 15:45:00 Document Registration [id number] 01/13/2019 09:30:00 Document Registration [id number] 11/18/2018 11:00:00 Document Registration [id number] 10/02/2019 12:04:00 18:25:00 DIS Outpatient JOSE ROGER DO [facility] PREOP EGD [id number] 08/06/2019 10:15:00 23:59:59 CLS Outpatient JOSE ROGER DO [facility] RAD OTHER PARTIAL INTESTINA L OBSTRUCTION [id number] 07/28/2019 08:01:00 10:35:00 DIS Outpatient JOSE ROGER DO [facility] ENDO CHRONIC GASTRITIS [id number] 07/21/2019 05:36:00 15:18:00 DIS Outpatient JOSE ROGER DO [facility] PREOP EGD [id number] 06/16/2019 06:28:00 06:51:00 DIS Emergency SAMIA BOLIVAR, JOSE LUIS W [facility] ER FS HEADACHE [id number] 05/04/2019 08:10:00 10:00:00 DIS Emergency GILMER BOLIVAR, ANDREW Hoyos [facility] ER FS STOMACH PAIN [id number] 04/02/2019 09:12:00 10:20:00 DIS Emergency JAIME SALAZAR, ARIEL B [facility] ER FS HEADACHE [id number] 01/20/2019 09:06:00 13:00:00 DIS Emergency PACHECO BOLIVAR, CHELY Linn [facility] ER FS VOMITING [id number] 12/23/2018 06:11:00 06:48:00 DIS Emergency LEANDRO BOLIVAR, THUAN Hoyos [facility] ER FS MIGRAINE [id number] 11/23/2018 06:59:00 07:44:00 DIS Emergency AGUERO DODARCI [facility] ER FS MIGRAINE [id number] 10/12/2018 03:35:00 04:43:00 DIS Emergency AGUERO DODARCI [facility] ER FS MIGRAINE [id number] 09/18/2018 06:20:00 07:15:00 DIS Emergency JEN ESCALERA MD [facility] ER FS MIGRAINE [id number] 09/11/2018 08:17:00 09:00:00 DIS Emergency JAM MARIE DO [facility] ER FS HEADACHE [id number] 08/15/2018 07:50:00 08:40:00 DIS Emergency JEN ESCALERA MD [facility] ER FS MIGRAINE [id number] 08/13/2018 11:50:00 23:59:59 CLS Outpatient ANDREW DONAHUE MD [facility] RAD FS [id number] 10/07/2019 06:01:[address] Emergency ARIEL SANDOVAL DO [facility] ER FS MIGRAINE [id number] 10/06/2019 07:46:[address] Outpatient JOSE ROGER DO [facility] ENDO GERD [id number] 08/16/2019 06:46:00 Document Registration
[2019-10-07] MEDS ORDERED: diphenhydrAMINE 50 MG/ML INJ (BENADRYL) IM ONE (06:15)
[2019-10-07] MEDS ORDERED: KETOROLAC 60 MG/2 ML VIAL IM ONE (06:15)
[2019-10-07] MEDS ORDERED: METOCLOPRAMIDE INJ 10 MG/2 ML (REGLAN) IM ONE (06:15)
--- NOTE | 2019-10-07 06:21 | ED Headache ---
General Chief Complaint: Head/Cervical Problems Stated Complaint: MIGRAINE Nursing Triage Note: PT. C/O A MIGRAINE THAT STARTED AROUND MIDNIGHT. Nursing Sepsis Screen: No Definite Risk Source: patient Exam Limitations: no limitations History of Present Illness Date Seen by Provider: October 07, 2019 Time Seen by Provider: 06:10 Initial Comments Onset of migraine last night, persists on arrival. Hx of chronic migraine ORELLANA's, taking Topamax and followed by her PCP, Self. No change from typical pattern. Associated nausea and vomiting as well as light sensitivity. No other complaints. No numbness or weakness. Allergies and Home Medications Allergies Coded Allergies: zolmitriptan (Verified Adverse Reaction, Unknown, 09/29/19) Home Medications Cetirizine HCl 10 Mg Tablet, 10 MG PO DAILY, (Reported) Citalopram Hydrobromide 40 Mg Tablet, 40 MG PO DAILY, (Reported) Ferrous Sulfate 325 Mg Tablet, 325 MG PO DAILY, (Reported) Levothyroxine Sodium 88 Mcg Tablet, 88 MCG PO HS, (Reported) Montelukast Sodium 10 Mg Tablet, 10 MG PO HS, (Reported) Pantoprazole Sodium 20 Mg Tablet.dr, 20 MG PO BID, (Reported) Propranolol HCl 20 Mg Tablet, 20 MG PO BID, (Reported) Topiramate 100 Mg Tablet, 100 MG PO TID, (Reported) Patient Home Medication List Home Medication List Reviewed: Yes Review of Systems Review of Systems Constitutional: see HPI; No dizziness, No fever; malaise; No weakness Eyes: Denies Blindness, Denies Pain; Photophobia Ears, Nose, Mouth, Throat: no symptoms reported Respiratory: no symptoms reported Cardiovascular: no symptoms reported Gastrointestinal: No abdominal pain; nausea, vomiting Psychiatric/Neurological: See HPI, Headache; Denies Numbness, Denies Paresthesia Past Stxrovl-Jrevli-Gciykz Hx Past Med/Social Hx: Reviewed Nursing Past Med/Soc Hx Patient Social History Type Used: Cigarettes Former Smoker, Quit: October 17, 2017 2nd Hand Smoke Exposure: No Recent Foreign Travel: No Contact w/Someone Who Travel: No Recent Infectious Disease Expo: No Recent Hopitalizations: No Physical Abuse: No Sexual Abuse: No Mistreated: No Fear: No Immunizations Up To Date Date of Influenza Vaccine: Mar 04, 2019 Seasonal Allergies Seasonal Allergies: Yes Past Medical History Surgeries: Yes Gallbladder Respiratory: No Cardiac: No Neurological: Yes Headaches /Migraines Genitourinary: No Gastrointestinal: Yes (chronic gastritis) Musculoskeletal: Yes (RLS) Endocrine: No HEENT: No Cancer: No Psychosocial: Yes Depression Integumentary: No Blood Disorders: No Physical Exam Vital Signs Vital Signs - First Documented 10/07/19 06:07 Temp 36.5 Pulse 83 Resp 16 B/P (MAP) 104/59 (74) Pulse Ox 100 O2 Delivery Room Air Capillary Refill : Less Than 3 Seconds Height, Weight, BMI Height: 5'3.00" Weight: 160lbs. 0oz. 72.845906ct; 30.00 BMI Method:Stated General Appearance: WD/WN, no apparent distress HEENT: PERRL/EOMI, normal ENT inspection, photophobia Neck: non-tender, full range of motion, supple Crainal Nerves: normal hearing, normal speech, PERRL Coordination/Gait: normal finger to nose, normal gait Motor/Sensory: no motor deficit, no sensory deficit, no pronator drift Skin: normal color, warm/dry Progress/Results/Core Measures Results/Orders My Orders Orders - BILL RAMIREZ DO Ketorolac Injection (Toradol Injection) (10/07/19 06:15) Metoclopramide Injection (Reglan Injecti (10/07/19 06:15) Diphenhydramine Injection (Benadryl Inje (10/07/19 06:15) Medications Given in ED Current Medications Medications Dose Ordered Sig/Hernan Route Start Time Stop Time Status Last Admin Dose Admin Diphenhydramine HCl 25 mg ONCE ONCE IM 10/07/19 06:15 10/07/19 06:18 DC 10/07/19 06:23 25 MG Ketorolac Tromethamine 60 mg ONCE ONCE IM 10/07/19 06:15 10/07/19 06:18 DC 10/07/19 06:22 60 MG Metoclopramide HCl 10 mg ONCE ONCE IM 10/07/19 06:15 10/07/19 06:18 DC 10/07/19 06:24 10 MG Vital Signs/I&O 10/07/19 10/07/19 06:07 06:29 Temp 36.5 36.5 Pulse 83 83 Resp 16 16 B/P (MAP) 104/59 (74) 104/59 (74) Pulse Ox 100 100 O2 Delivery Room Air Room Air Blood Pressure Mean: 74 Departure Impression Primary Impression: Migraine Qualified Codes: G43.909 - Migraine, unspecified, not intractable, without status migrainosus Disposition: 01 HOME, SELF-CARE Condition: Improved Departure-Patient Inst. Decision time for Depature: 06:21 Referrals: SELFANDREW MD (PCP/Family) Primary Care Physician Patient Instructions: Migraine Headache (DC) BILL RAMIREZ DO October 07, 2019 06:21
[2019-10-07 06:29] VITALS: BP 104/59
== END 2019-10-07 06:29 | disposition home or self-care (01) ==
LOC: EDUNIT# 05:58 → ER FS 06:01
DX: G43.909 Migraine, unspecified, not intractable, without status migrainosus (principal); F32.9 Major depressive disorder, single episode, unspecified; Z88.8 Allergy status to other drugs, medicaments and biological substances; Z87.891 Personal history of nicotine dependence
CPT/HCPCS: 99284

== ENCOUNTER 2019-10-09 09:04 | Emergency (ER) | payer MEDICARE, MEDICAID ==
[~2019-10-09] VITALS: Ht 160 cm; Wt 74.5 kg
--- NOTE | 2019-10-09 09:23 | ED General ---
General Chief Complaint: Cough/Cold/Flu Symptoms Stated Complaint: FEVER,COUGH,POST OP SCOPE Nursing Triage Note: States she had an egd 3 days ago and then lost her voice and developed a cough and fever. States her temp was 103 two days ago. Nursing Sepsis Screen: No Definite Risk History of Present Illness Date Seen by Provider: October 09, 2019 Time Seen by Provider: 09:15 Initial Comments 39-year-old female presents with a scratchy throat. She reports that she had a fever that was 103-2 days ago. Maybe a minor fever since then. She has mild cough. She reports she had EGD 3 days ago. She does not have any shortness of breath, chest pain, nausea, vomiting, abdominal pain or any other systemic complaints. Patient is afebrile today upon presentation. Allergies and Home Medications Allergies Coded Allergies: zolmitriptan (Verified Adverse Reaction, Unknown, 09/29/19) Home Medications Cetirizine HCl 10 Mg Tablet, 10 MG PO DAILY, (Reported) Citalopram Hydrobromide 40 Mg Tablet, 40 MG PO DAILY, (Reported) Ferrous Sulfate 325 Mg Tablet, 325 MG PO DAILY, (Reported) Levothyroxine Sodium 88 Mcg Tablet, 88 MCG PO HS, (Reported) Montelukast Sodium 10 Mg Tablet, 10 MG PO HS, (Reported) Pantoprazole Sodium 20 Mg Tablet.dr, 20 MG PO BID, (Reported) Propranolol HCl 20 Mg Tablet, 20 MG PO BID, (Reported) Topiramate 100 Mg Tablet, 100 MG PO TID, (Reported) Patient Home Medication List Home Medication List Reviewed: Yes Review of Systems Review of Systems Constitutional: see HPI EENTM: see HPI Respiratory: cough; No dyspnea on exertion, No short of breath, No wheezing Cardiovascular: No chest pain, No palpitations Gastrointestinal: LLQ Musculoskeletal: no symptoms reported Skin: no symptoms reported Psychiatric/Neurological: No Symptoms Reported Past Rwznokd-Qananx-Pddmfn Hx Past Med/Social Hx: Reviewed Nursing Past Med/Soc Hx Patient Social History Alcohol Use: Denies Use Recreational Drug Use: No Smoking Status: Former Smoker Type Used: Cigarettes Former Smoker, Quit: October 17, 2017 2nd Hand Smoke Exposure: No Recent Foreign Travel: No Contact w/Someone Who Travel: No Recent Infectious Disease Expo: No Recent Hopitalizations: No Immunizations Up To Date Date of Influenza Vaccine: Mar 04, 2019 Seasonal Allergies Seasonal Allergies: Yes Past Medical History Surgeries: Yes Gallbladder Respiratory: No Cardiac: No Neurological: Yes Headaches /Migraines Genitourinary: No Gastrointestinal: Yes (chronic gastritis) Musculoskeletal: Yes (RLS) Endocrine: No HEENT: No Cancer: No Psychosocial: Yes Depression Integumentary: No Blood Disorders: No Physical Exam Vital Signs Vital Signs - First Documented 10/09/19 09:11 Temp 36.5 Pulse 85 Resp 16 B/P (MAP) 109/70 (83) Pulse Ox 96 Capillary Refill : Less Than 3 Seconds Height, Weight, BMI Height: 5'3.00" Weight: 160lbs. 0oz. 72.210991mq; 29.00 BMI Method:Stated General Appearance: No Apparent Distress HEENT: PERRL/EOMI, Normal ENT Inspection, Pharynx Normal Neck: Non Tender, Supple Respiratory: Chest Non Tender, Lungs Clear Cardiovascular: Regular Rate, Rhythm, No Edema Gastrointestinal: Non Tender, Soft Back: No CVA Tenderness Extremity: Normal Capillary Refill, Normal Inspection Neurologic/Psychiatric: Alert, Oriented x3, Normal Mood/Affect, instrument and control service person II-XII Norm as Tested Skin: Normal Color, Warm/Dry Lymphatic: No Adenopathy Progress/Results/Core Measures Suspected Sepsis Recent Fever Within 48 Hours: Yes Infection Criteria Present: None New/Unexplained Altered Menta: No Sepsis Screen: No Definite Risk SIRS Temperature: Pulse: 85 Respiratory Rate: 16 Blood Pressure 109 /70 Mean: 83 Results/Orders Lab Results Laboratory Tests Test 10/09/19 09:30 Range/Units Group A Streptococcus Screen NEGATIVE NEGATIVE My Orders Orders - PAZ ANGELO DO Rapid Strep A Screen (10/09/19 09:23) Vital Signs/I&O 10/09/19 09:11 Temp 36.5 Pulse 85 Resp 16 B/P (MAP) 109/70 (83) Pulse Ox 96 Capillary Refill : Less Than 3 Seconds Blood Pressure Mean: 83 Progress Note : Time: 10:10 Progress Note Patient's pharyngitis is likely postprocedural in from irritation. Patient with no signs of an acute infection. Patient reported fever was a couple days ago but none recently. Patient should use Maalox Janusz, saltwater gargle. Follow-up with her primary care provider as needed. Departure Impression Primary Impression: Pharyngitis Qualified Codes: J02.9 - Acute pharyngitis, unspecified Disposition: 01 HOME, SELF-CARE Condition: Stable Departure-Patient Inst. Referrals: SELFANDREW MD (PCP/Family) Primary Care Physician Patient Instructions: Sore Throat, Adult (DC) Add. Discharge Instructions: [facility] Emergency department focuses on treating and ruling out life-threatening diseases. Whenever possible, a diagnosis is given. However, most patients are given an impression based on their history, physical exam, and workup during your brief time in the ER. Information about probable diagnosis and other educational material has been provided. Please take the time to read and understand this information. It is very important that you follow up with a physician as discussed during the visit today. Failure to adhere to your follow-up instructions may lead to severe disability, injury, or so please make sure to keep your appointments or obtain one as requested. Please keep in mind the emergency department is not designed to your primary care or "family doctor" and nonurgent issues are best evaluated by an outpatient physician All discharge instructions reviewed with patient and/or family. Voiced understanding. PAZ ANGELO DO October 09, 2019 09:23
--- OUTSIDE RECORDS SUMMARY | 2019-10-09 09:25 | XMS REPORT | Continuity of Care Document ---
Author Organization Unknown Address Unknown Phone Unavailable Allergies Active Description Code Type Severity Reaction Onset Reported/Identified Relationship to Patient Clinical Status Yes zolmitriptan [id number] Drug Allergy Unknown N/A 09/29/2019 Medications There [...] CHRONIC MIGRAINE W/O AURA, NOT INTRACTAB 11/23/2018 GAUERO DO, DARCI Ot R51 HEADACHE 11/23/2018 AGUERO [...] R11. 2 NAUSEA WITH VOMITING, UNSPECIFIED 01/20/2019 APCHECO BOLIVAR, CHELY Linn Ot Z87.891 PERSONAL HISTORY [...] MAJOR DEPRESSIVE DISORDER, SINGLE EPISOD 04/02/2019 JAIME SLAAZAR ARIEL B Ot G43.909 MIGRAINE, UNSP, NOT [...] Ot K29.8 0 DUODENITIS WITHOUT BLEEDING 07/28/2019 [facility] , JOSE B Ot K31.5 OBSTRUCTION OF DUODENUM 07/28/2019 [facility] Ot K31.8 9 OTHER DISEASES OF STOMACH AND DUODENUM 07/28/2019 [facility] Ot K44.9 DIAPHRAGMATIC HERNIA WITHOUT OBSTRUCTION 07/28/2019 [facility] [place], JOSE B Ot Z68.3 0 BODY MASS INDEX (BMI) 30.0-30.9, ADULT 07/28/2019 [facility], JOSE B Ot Z79.8 91 [facility] (CURRENT) USE OF OPIATE ANALGE 07/28/2019 [facility] Ot Z79.8 99 OTHER [facility] (CURRENT) DRUG THERAPY 07/28/2019 [facility] Ot Z80.9 FAMILY HISTORY OF MALIGNANT NEOPLASM, UN 07/28/2019 [place] Ot Z88.8 ALLERGY STATUS TO [facility] DRUG/MEDS/BIOL SUB 07/28/2019 [place] JOSE B Ot Z90.4 9 ACQUIRED ABSENCE OF OTHER SPECIFIED PART 07/30/2019 SELF ANDREW BOLIVAR Ot S89.92 XD UNSPECIFIED INJURY OF LEFT LOWER LEG, MCNEAL 08/01/2019 [facility] [place], JOSE B Ot E66.9 OBESITY, UNSPECIFIED 08/01/2019 [facility] B Ot F32.9 MAJOR DEPRESSIVE DISORDER, SINGLE EPISOD 08/01/2019 [place] , JOSE B Ot G43.9 09 MIGRAINE, UNSP, NOT INTRACTABLE, WITHOUT 08/01/2019 KANA SALAZAR, JOSE B Ot I10 ESSENTIAL (PRIMARY) HYPERTENSION 08/01/2019 [facility] [place] , JOSE B Ot K21.0 GASTRO-ESOPHAGEAL REFLUX DISEASE WITH ES 08/01/2019 [facility] [place] , JOSE B Ot K26.9 DUODENAL ULCER, UNSP ACUTE OR CHRONIC 08/01/2019 [facility] [place] , JOSE B Ot K29.5 0 UNSPECIFIED CHRONIC GASTRITIS WITHOUT BL 08/01/2019 [facility] [place] , JOSE B Ot K29.8 0 DUODENITIS WITHOUT BLEEDING 08/01/2019 [facility] , JOSE B Ot K31.5 OBSTRUCTION OF DUODENUM 08/01/2019 KANA SALAZAR, JOES B Ot K31.8 9 OTHER DISEASES OF STOMACH AND DUODENUM 08/01/2019 [place] , JOSE B Ot K44.9 DIAPHRAGMATIC HERNIA WITHOUT OBSTRUCTION 08/01/2019 KANA SALAZAR, JOSE B Ot Z68.3 0 BODY MASS INDEX (BMI) 30.0-30.9, ADULT 08/01/2019 KANA SALAZAR, JOSE B Ot Z79.8 91 [employer] (CURRENT) USE OF OPIATE ANALGE 08/01/2019 KANA SALAZAR, JOSE B Ot Z79.8 99 OTHER [employer] (CURRENT) DRUG THERAPY 08/01/2019 KANA SALAZAR, JOSE B Ot Z80.9 FAMILY HISTORY OF MALIGNANT NEOPLASM, UN 08/01/2019 KANA SALAZAR, JOSE B Ot Z88.8 ALLERGY STATUS TO [facility] DRUG/MEDS/BIOL SUB 08/01/2019 KANA SALAZAR, JOSE B Ot Z90.4 9 ACQUIRED ABSENCE OF OTHER SPECIFIED PART 08/06/2019 SELF , ANDREW Ot S89.92 XD UNSPECIFIED INJURY OF LEFT LOWER LEG, MCNEAL 08/06/2019 SELF ANDREW BOLIVAR Ot S89.92 XD UNSPECIFIED INJURY OF LEFT LOWER LEG, MCNEAL 08/08/2019 KANA SALAZAR, JOSE B Ot K44.9 DIAPHRAGMATIC HERNIA WITHOUT OBSTRUCTION 08/08/2019 [facility] , JOSE B Ot K56.6 90 OTHER PARTIAL INTESTINAL OBSTRUCTION 08/08/2019 SELF ANDREW BOLIVAR Ot S89.92 XD UNSPECIFIED INJURY OF LEFT LOWER LEG, MCNEAL 08/08/2019 KANA SALAZAR, JOSE B Ot K44.9 DIAPHRAGMATIC HERNIA WITHOUT OBSTRUCTION 08/08/2019 [place] , JOSE B Ot K56.6 90 OTHER PARTIAL INTESTINAL OBSTRUCTION 08/16/2019 Ot F32.9 VITO R DEPRESSIVE DISORDER, SINGLE EPISOD 08/16/[address] GRAINE, UNSP, NOT INTRACTABLE, WITHOUT 08/16/2019 Ot J02.0 STRE PTOCOCCAL PHARYNGITIS 08/16/2019 Ot R51 HEADACHE 08/16/2019 Ot 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 08/16/2019 Ot Z88.8 NAGI RGY STATUS TO [facility] DRUG/MEDS/BIOL SUB 08/18/2019 KANA SALAZAR, JOSE B Ot K44.9 DIAPHRAGMATIC HERNIA WITHOUT OBSTRUCTION 08/18/2019 KANA SALAZAR, JOSE B Ot K56.6 90 OTHER PARTIAL INTESTINAL OBSTRUCTION 08/19/2019 Ot F32.9 VITO R DEPRESSIVE DISORDER, SINGLE EPISOD 08/19/[address] GRAINE, UNSP, NOT INTRACTABLE, WITHOUT 08/19/2019 Ot J02.0 STRE PTOCOCCAL PHARYNGITIS 08/19/2019 Ot R51 HEADACHE 08/19/2019 Ot 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 BULGARIAN 91 mL/min/1.73m2 > OR = 60 eGFR [...] 7-25 CREATININE 0.91 mg/dL 0.50-1.10 eGFR NON-AFR. BULGARIAN 78 mL/min/1.73m2 > OR = 60 eGFR [...] 7-25 CREATININE 0.89 mg/dL 0.50-1.10 eGFR NON-AFR. BULGARIAN 81 mL/min/1.73m2 > OR = 60 eGFR [...] Status Pt. Type Provider Facility Loc./Unit Complaint [id number] 06/05/2019 11:00:00 06/05/2019 23:59:5 9 [facility] Outpatient [facility], ANDREW [place] [facility] [id number] 06/05/2019 11:00:00 Document Registration [id number] 05/07/2019 09:45:00 Document Registration [id number] 04/28/2019 13:40:00 Document Registration [id number] 04/07/2019 15:45:00 Document Registration [id number] 01/13/2019 09:30:00 Document Registration [id number] 11/18/2018 11:00:00 Document Registration [id number] 10/07/2019 06:01:00 06:29:00 DIS Emergency ROVENSTINE BILL SALAZAR [facility] ER FS MIGRAINE [id number] 10/02/2019 12:04:00 18:25:00 DIS Outpatient JOSE ROGER DO B [facility] PREOP EGD [id number] 08/06/2019 10:15:00 23:59:59 CLS Outpatient JOSE ROGER DO B [facility] RAD OTHER PARTIAL INTESTINA L OBSTRUCTION [id number] 07/28/2019 08:01:00 020 10:35:00 DIS Outpatient JOSE ROGER DO [facility] ENDO CHRONIC GASTRITIS [id number] 07/21/2019 05:36:00 15:18:00 DIS Outpatient KANA SALAZARJOSE [facility] PREOP EGD [id number] 06/16/2019 06:28:00 06:51:00 DIS Emergency SAMIA BOLIVAR, JOSE LUIS Rueda [facility] ER FS HEADACHE [id number] 05/04/2019 08:10:00 10:00:00 DIS Emergency GILMER BOLIVAR, ANDREW [place] [facility] ER FS STOMACH PAIN [id number] 04/02/2019 09:12:00 10:20:00 DIS Emergency ARIEL SANDOVAL DO [facility] ER FS HEADACHE [id number] 01/20/2019 09:06:00 13:00:00 DIS Emergency PACHECO BOLIVAR, CHELY Linn [facility] ER FS VOMITING [id number] 12/23/2018 06:11:00 06:48:00 DIS Emergency LEANDRO BOLIVAR, THUAN [place] [facility] ER FS MIGRAINE [id number] 11/23/2018 06:59:00 07:44:00 DIS Emergency DARCI AGUERO DO [facility] ER FS MIGRAINE [id number] 10/12/2018 03:35:00 04:43:00 DIS Emergency DARCI AGUERO DO [facility] ER FS MIGRAINE [id number] 09/18/2018 06:20:00 07:15:00 DIS Emergency JEN ESCALERA MD [facility] ER FS MIGRAINE [id number] 09/11/2018 08:17:00 09:00:00 DIS Emergency JAM MARIE DO [facility] ER FS HEADACHE [id number] 08/15/2018 07:50:00 08:40:00 DIS Emergency JEN ESCALERA MD [facility] ER FS MIGRAINE [id number] 08/13/2018 11:50:00 019 23:59:59 CLS Outpatient SELF ANDREW BOLIVAR [facility] RAD FS S89.92XD [id number] 10/06/2019 07:46:[address] Outpatient JOSE ROGER DO [facility] ENDO GERD [id number] 08/16/2019 06:46:00 Document Registration
[2019-10-09 10:19] VITALS: BP 111/61
== END 2019-10-09 10:20 | disposition home or self-care (01) ==
LOC: EDUNIT# 09:04 → ER FS 09:06
DX: J02.9 Acute pharyngitis, unspecified (principal); G43.909 Migraine, unspecified, not intractable, without status migrainosus; F32.9 Major depressive disorder, single episode, unspecified; K29.50 Unspecified chronic gastritis without bleeding; Z88.8 Allergy status to other drugs, medicaments and biological substances; Z87.891 Personal history of nicotine dependence
CPT/HCPCS: 87430; 99284

== ENCOUNTER 2020-01-06 23:13 | Emergency (ER) | payer MEDICARE, MEDICAID ==
[~2020-01-06] VITALS: Ht 160 cm; Wt 78.9 kg
[2020-01-06 23:26] VITALS: BP 143/93
--- NOTE | 2020-01-06 23:27 | ED Headache ---
General Stated Complaint: MIGRAINE Source: patient Exam Limitations: no limitations History of Present Illness Date Seen by Provider: Jan 06, 2020 Time Seen by Provider: 23:22 Initial Comments 39-year-old female with history of chronic migraine headaches on migraine suppressive therapy with Topamax and propranolol. Presents with onset of a migraine headache beginning yesterday with associated nausea and light sensitivity. Typical of her migraine pattern without any increase in severity or change in headache pattern. Patient met she has not had a headache for a good 3 months. No other complaints. Allergies and Home Medications Allergies Coded Allergies: zolmitriptan (Verified Adverse Reaction, Unknown, 09/29/19) Home Medications Cetirizine HCl 10 Mg Tablet, 10 MG PO DAILY, (Reported) Citalopram Hydrobromide 40 Mg Tablet, 40 MG PO DAILY, (Reported) Ferrous Sulfate 325 Mg Tablet, 325 MG PO DAILY, (Reported) Levothyroxine Sodium 88 Mcg Tablet, 88 MCG PO HS, (Reported) Montelukast Sodium 10 Mg Tablet, 10 MG PO HS, (Reported) Pantoprazole Sodium 20 Mg Tablet.dr, 20 MG PO BID, (Reported) Propranolol HCl 20 Mg Tablet, 20 MG PO BID, (Reported) Topiramate 100 Mg Tablet, 100 MG PO TID, (Reported) Patient Home Medication List Home Medication List Reviewed: Yes Review of Systems Review of Systems Constitutional: see HPI; No chills; dizziness; No fever; malaise; No weakness Eyes: Denies Blindness, Denies Pain; Photophobia Ears, Nose, Mouth, Throat: no symptoms reported Respiratory: No cough, No short of breath Cardiovascular: No chest pain, No edema, No palpitations Gastrointestinal: No abdominal pain, No loss of appetite, No nausea, No vomiting Psychiatric/Neurological: Headache; Denies Numbness, Denies Paresthesia, Denies Pre-Existing Deficit, Denies Tingling, Denies Tremors, Denies Weakness Past Tjpkilz-Rssgsb-Ugpcis Hx Past Med/Social Hx: Reviewed Nursing Past Med/Soc Hx Patient Social History Type Used: Cigarettes Former Smoker, Quit: October 17, 2017 2nd Hand Smoke Exposure: No Recent Foreign Travel: No Contact w/Someone Who Travel: No Recent Hopitalizations: No Immunizations Up To Date Date of Influenza Vaccine: Mar 04, 2019 Seasonal Allergies Seasonal Allergies: Yes Past Medical History Surgeries: Yes Gallbladder Respiratory: No Cardiac: No Neurological: Yes Headaches /Migraines Genitourinary: No Gastrointestinal: Yes (chronic gastritis) Musculoskeletal: Yes (RLS) Endocrine: No HEENT: No Cancer: No Psychosocial: Yes Depression Integumentary: No Blood Disorders: No Physical Exam Vital Signs Vital Signs - First Documented 01/06/20 23:26 Temp 36.1 Pulse 86 Resp 18 B/P (MAP) 143/93 (110) Pulse Ox 97 O2 Delivery Room Air Capillary Refill : Height, Weight, BMI Height: 5'3.00" Weight: 160lbs. 0oz. 72.583984ww; 29.00 BMI Method:Stated General Appearance: WD/WN, no apparent distress HEENT: PERRL/EOMI, normal ENT inspection Neck: non-tender, full range of motion, supple Cardiovascular: regular rate, rhythm, no edema Respiratory: chest non-tender, lungs clear Gastrointestinal: non tender, soft; No distended, No guarding, No rebound, No tenderness Psychiatric: alert, oriented x 3 Crainal Nerves: normal hearing, normal speech, PERRL Motor/Sensory: no motor deficit, no sensory deficit Skin: normal color, warm/dry Progress/Results/Core Measures Results/Orders My Orders Orders - ROVENSTINE,BILL L DO Diphenhydramine Injection (Benadryl Inje (01/06/20 23:30) Ketorolac Injection (Toradol Injection) (01/06/20 23:30) Metoclopramide Injection (Reglan Injecti (01/06/20 23:30) Medications Given in ED Current Medications Medications Dose Ordered Sig/Hernan Route Start Time Stop Time Status Last Admin Dose Admin Diphenhydramine HCl 25 mg ONCE ONCE IM 01/06/20 23:30 01/06/20 23:31 DC 01/06/20 23:41 25 MG Ketorolac Tromethamine 60 mg ONCE ONCE IM 01/06/20 23:30 01/06/20 23:31 DC 01/06/20 23:42 60 MG Metoclopramide HCl 10 mg ONCE ONCE IM 01/06/20 23:30 01/06/20 23:31 DC 01/06/20 23:41 10 MG Vital Signs/I&O 01/06/20 23:26 Temp 36.1 Pulse 86 Resp 18 B/P (MAP) 143/93 (110) Pulse Ox 97 O2 Delivery Room Air Departure Impression Primary Impression: Migraine Qualified Codes: G43.909 - Migraine, unspecified, not intractable, without status migrainosus Disposition: HOME, SELF-CARE Condition: Stable Departure-Patient Inst. Referrals: SELFANDREW MD (PCP/Family) Primary Care Physician Patient Instructions: Migraines (DC) Add. Discharge Instructions: See your PCP in 2-3 days if your Headache has not resolved. BILL RAMIREZ DO Jan 06, 2020 23:27
--- OUTSIDE RECORDS SUMMARY | 2020-01-06 23:28 | XMS REPORT ---
Author Author [facility] Address [address] [place] [address] Care Team Providers Care Physician Practice Manager Name Role Phone ANDREW DONAHUE Unavailable PROBLEMS Type Condition ICD9-CM Code [id number] Code Onset Dates Condition S tatus SNOMED Code Problem RLS (restless legs syndrome) G25.81 A ctive 49698018 Problem Seasonal allergic reaction J30.2 Act gena 009297775 Problem Migraine headache G43.909 Active 37 988346 Problem Depression F32.9 Active 101368914 Problem Hypothyroidism E03.9 Active 15339 008 Problem Obesity (BMI 30.0-34.9) E66.9 Active 376663299278107 Problem Hypokalemia E87.6 Active 03290022 Problem Ulcer, peptic, acute or chronic K27.9 Active 58065764 Problem Thrombocytopenia D69.6 Active 302 678802 Problem Hirsutism L68.0 Active 922937593 Problem Other chronic pain G89.29 Active 8 2647320 Problem Chronic migraine G43.709 Active 427 751312 Problem Migraine without aura and without status migrain osus, not intractable G43.009 Active [id number] ALLERGIES No Information ENCOUNTERS Encounter Location Date Diagnosis [address] [id number] [place] [address] Jan, [address] [id number] [place] [address] Dec, [address] [id number] [address] Dec, [address] [id number] [place] [address] Dec, Epigastric abdominal pain R1 0.[address] [id number] [place] [address] 08 Nov, 2019 [facility] [address] [id number] [place] [address] 05 Nov, 2019 Epigastric abdominal pain R1 0.13 [facility] [address] [id number] [place] [address] October, [address] [id number] [place] [address] October, Epigastric abdominal pain R1 0.[address] [id number], [place] [address] October, Nasal sore J34.89 [facility] [id number] [place] [address] Sep, Epigastric abdominal pain R10.13 [place] [id number] [id number] [place] [address] Sep, Epigastric abdominal pain R10.13 [facility] [place] [address] [id number] [place] [address] Sep, [address] [id number], [place] [address] 30 Aug, 2019 [facility] [address] [id number] [place] [address] 15 Aug, 2019 Upper respiratory tract infe ction, unspecified type J06.[address] [id number], [place] [address] 12 Aug, 2019 Nasal sore J34.89 ; Ulcer, p eptic, acute or chronic K27.9 ; Migraine headache G43.909 and Obesity (BMI 30.0-34.9) E66.9 [facility] [place] [address] [id number] [place] [address] 09 Aug, 2019 Epigastric abdominal pain R1 0.13 [facility] [place] [address] 340[address] [id number], [place] [address] Aug, Epigastric abdominal pain R1 0.13 [facility] [place] [address] [id number] [place] [address] 14 Jul, 2019 [facility] [place] [address] [id number] [place] [address] 12 Jul, 2019 [facility] [place] [address] 340[address] [id number], [place] [address] Jul, [address] 340[address] [id number], [place] [address] 04 Jul, 2019 Migraine headache G43.909 ; Generalized abdominal pain R10.84 and Obesity (BMI 30.0-34.9) E66.9 [facility] [place] [address] [id number], [place] [address] Jun, [facility] [place] [address] 340[address] [id number], [place] [address] Jun, [facility] [address] [id number] [place] [address] Jun, Migraine without aura and wi thout status migrainosus, not intractable G43.009 [facility] [place] [address] 340[address] [id number], [place] [address] 07 Jun, 2019 Generalized abdominal pain R 10.84 [facility] [address] [facility] [id number] 100KS [place] [address] Jun, [facility] [place] [address] [id number], [place] [address] Jun, [address] 340[address] [id number], [place] [address] Jun, [address] 340[address] [id number], [place] [address] Jun, Migraine headache G43.909 ; Generalized abdominal pain R10.84 ; Viral gastritis K29.70 and Pain in left knee M25.562 [facility] [place] [address] [id number] [place] [address] Jun, Epigastric abdominal pain R1 0.13 [facility] R[place] [address] 340[address] [id number] [place] [address] May, [facility] [address] [facility] [id number] 100KS [place] [address] May, [facility] [address] [id number] [place] [address] May, Migraine without aura and wi thout status migrainosus, not intractable G43.009 [facility] [address] [id number] [place] [address] May, Migraine without aura and wi thout status migrainosus, not intractable G43.009 [facility] [place] [address] 340[address] [id number], [place] [address] May, Generalized abdominal pain R 10.84 and Thrombocytopenia D69.6 [facility] [address] [facility] [id number] 100[place] [address] May, [facility] [address] [id number] [place] [address] May, [facility] [address] 340 [id number] [place] [address] Apr, Abdominal pain R10.9 ; Diarr hea, unspecified R19.7 and Nausea with vomiting, unspecified R11.2 [facility] [place] R[place] [address] [id number] [place] [address] Apr, [facility] [place] [address] 340B [id number], [place] [address] Apr, [facility] [place] [address] 340[address] [id number], [place] [address] Apr, Thrombocytopenia D69.6 [facility] [place] [address] [id number], [place] [address] Apr, Encounter for immunization Z 23 [facility] [address] [id number], [place] [address] Apr, [facility] [address] [id number], [place] [address] Apr, Thrombocytopenia D69.[address] [id number] [place] [address] Apr, Hypothyroidism E03.9 and Hyp okalemia E87.[address] 340[address] [id number], [place] [address] Apr, Migraine headache G43.909 ; Hypothyroidism E03.9 ; Hypokalemia E87.6 and Tooth pain K08.89 [facility] [address] 340 [id number] [place] [address] Mar, Migraine headache G43.909 [facility] IN [facility] [address] 340 [id number], [place] [address] Mar, Chronic migraine G43.[address] 340[address] [id number], [place] [address] Mar, [facility] [address] 340 [id number], [place] [address] Mar, Strep pharyngitis J02.0 and Sore throat J02.9 [facility] [place] [facility] IN [facility] [address] 340 [id number], [place] [address] Feb, Chronic migraine without aur a without status migrainosus, not intractable G43.709 [facility] IN [place] [address] [id number] [address] Jan, Viral gastritis K29.70 [facility] [place] [address] 340[address] [id number], [place] [address] Jan, [facility] [address] 340[address] [id number], [place] [address] Jan, Migraine with aura and witho ut status migrainosus, not intractable G43.109 [facility] [address] 340 [id number] [place] [address] Dec, Migraine with aura and witho ut status migrainosus, not intractable G43.109 [facility] [place] [facility] IN [facility] [address] [id number] [place] [address] Dec, Migraine without status migr ainosus, not intractable, unspecified migraine type G43.909 [facility] [place] JO[facility] IN [facility] [address] 340 [id number] [place] [address] Nov, Migraine without status migr ainosus, not intractable, unspecified migraine type G43.909 [facility] [place] [address] 340B [id number] [place] [address] Nov, Possible exposure to STD Z20 .[address] 340B [id number], [place] [address] Nov, Possible exposure to STD Z20 .2 [facility] [address] [facility] [id number] 100KS [place] [address] October, [address] 340[address] [id number], [place] [address] October, Dysfunction of right eustach terence tube H69.81 and Migraine headache G43.909 [facility] IN [facility] [address] 340 [id number] [place] [address] October, Excessive cerumen in left ea r canal H61.22 and Eustachian tube dysfunction H69.[address] 340[address] [id number], [place] [address] Sep, Migraine headache G43.909 [facility] [place] [address] 340B [id number], [place] [address] Sep, Migraine headache G43.909 ; Impacted cerumen of left ear H61.22 and Migraine with aura and without status migrainosus, not intractable G43.109 [facility] [address] [facility] [id number] 100[place] [address] Sep, [facility] [place] R[place] [address] 340B [id number] [place] [address] Sep, Pain in left knee M25.562 an d Other chronic pain G89.29 [facility] [place] [address] 340[address] [id number], [place] [address] Sep, [facility] [address] [facility] [id number] [place] [address] Sep, RLS (restless legs syndrome) G25.81 [facility] [address] [id number] [place] [address] Aug, Acute pain of left knee M25. 562 and RLS (restless legs syndrome) G25.81 [facility] [place] R[place] [address] 340[address] [id number], [place] [address] Aug, [facility] [place] [address] 340[address] [id number], [place] [address] Aug, RLS (restless legs syndrome) G25.81 and Acute pain of left knee M25.562 [facility] [place] R[place] [address] 340[address] [id number] [place] [address] Aug, [facility] [address] 340[address] [id number], [place] [address] Aug, [facility] [address] [id number] [place] [address] Aug, Migraine G43.909 [facility] [place] [address] 340[address] [id number], [place] [address] Aug, Depression F32.9 ; Migraine headache G43.909 ; Migraine with aura and without status migrainosus, not intractable G43.109 ; Seasonal allergic reaction J30.2 ; Hypothyroidism E03.9 ; RLS (restless legs syndrome) G25.81 ; Allergic rhinitis J30.9 ; Hirsutism L68.0 ; Thrombocytopenia D69.6 ; Hypokalemia E87.6 and Injury of left knee, subsequent encounter S89.92XD [facility] [address] [id number] [place] [address] Aug, [address] [id number] [place] [address] Aug, Left leg pain M79.605 [facility] [address] [id number], [place] [address] Aug, [facility] WALK IN [facility] [address] [id number] [place] [address] Aug, Left leg pain M79.605 and RL S (restless legs syndrome) G25.[address] 340[address] [id number], [place] [address] Jul, Migraine with aura and witho ut status migrainosus, not intractable G43.109 ; Seasonal allergic reaction J30.2 and Hypokalemia E87.6 [facility] [address] [id number] [address] [id number] Jan, Dental examination V72.2 IMMUNIZATIONS No Known Immunizations SOCIAL HISTORY Never Assessed REASON FOR VISIT compazine PLAN OF CARE VITAL SIGNS MEDICATIONS Medication Instructions Dosage Frequency Start Date End Date Duration S ilya Prochlorperazine Maleate 10 MG Orally every 4-6 hours as needed 1/2 tablet Sep, 30 days Active RESULTS No Results PROCEDURES No Known procedures INSTRUCTIONS MEDICATIONS ADMINISTERED No Known Medications MEDICAL (GENERAL) HISTORY Type Description Date Medical History drug seeking behavior Medical History Depression Medical History Migraine headache Medical History Hypothyroidism Medical History Allergic rhinitis Medical History Hirsutism Medical History Thrombocytopenia Medical History Hypokalemia Surgical History cholecystectomy 2018 Surgical History EGD Surgical History Gall Bladder Removal Hospitalization History problems with stomach Hospitalization History See Surgeries
--- OUTSIDE RECORDS SUMMARY | 2020-01-06 23:28 | XMS REPORT ---
Author Author Aileen DONAHUE [facility] [facility] Address [address] [place] [address] Care Team Providers Care Placement Secretary Name Role Phone ANDREW DONAHUE Unavailable PROBLEMS Type Condition ICD9-CM Code HCN58-DI Code Onset Dates Condition S tatus SNOMED Code Problem RLS (restless legs syndrome) G25.81 A ctive 06326635 Problem Seasonal allergic reaction J30.2 Act gena 311676652 Problem Migraine headache G43.909 Active 37 321205 Problem Depression F32.9 Active 041560176 Problem Hypothyroidism E03.9 Active 20158 008 Problem Obesity (BMI 30.0-34.9) E66.9 Active 403947870163062 Problem Hypokalemia E87.6 Active 40836380 Problem Ulcer, peptic, acute or chronic K27.9 Active 77757342 Problem Thrombocytopenia D69.6 Active 302 962547 Problem Hirsutism L68.0 Active 993536913 Problem Other chronic pain G89.29 Active 8 7427943 Problem Chronic migraine G43.709 Active 427 369462 Problem Migraine without aura and without status migrain osus, not intractable G43.009 Active 273150846 ALLERGIES No Information ENCOUNTERS Encounter Location Date Diagnosis [address] [id number] [place] [address] 12 Nov, [address] [id number] [place] [address] October, [address] [id number] [place] [address] October, Epigastric abdominal pain R1 0.[address] [id number] [place] [address] October, Nasal sore J34.89 [facility] [address] [id number] [place] [address] 24 Sep, 2019 Epigastric abdominal pain R10.13 [facility] [place] [address] [id number] [place] [address] Sep, Epigastric abdominal pain R10.[address] [id number] [place] [address] Sep, [address] [id number] [place] [address] 30 Aug, 2019 [facility] [address] [id number] [place] [address] 15 Aug, 2019 Upper respiratory tract infe ction, unspecified type J06.[address] [id number] [place] [address] Aug, Nasal sore J34.89 ; Ulcer, p eptic, acute or chronic K27.9 ; Migraine headache G43.909 and Obesity (BMI 30.0-34.9) E66.[address] [id number] [place] [address] 09 Aug, 2019 Epigastric abdominal pain R1 0.[address] [id number] [place] [address] 09 Aug, 2019 Epigastric abdominal pain R1 0.[address] [id number] [address] 14 Jul, [address] [id number] [address] Jul, [address] [id number] [address] Jul, [address] [id number] [place] [address] 04 Jul, 2019 Migraine headache G43.909 ; Generalized abdominal pain R10.84 and Obesity (BMI 30.0-34.9) E66.9 [facility] [address] [id number] [place] [address] Jun, [facility] [place] [facility] [address] [id number] [place] [address] Jun, [facility] [address] [id number] [place] [address] 08 Jun, 2019 Migraine without aura and wi thout status migrainosus, not intractable G43.009 [facility] [place] [facility] [address] 340B [id number] [address] Jun, Generalized abdominal pain R 10.84 [facility] [address] [facility] [id number] [address] [place] [address] Jun, [facility] [place] [facility] [address] 340[address] [id number] [address] Jun, [facility] [place] [facility] [address] 340[address] [id number] [address] Jun, [facility] [place] [facility] [address] 340[address] [id number] [address] Jun, Epigastric abdominal pain R1 0.13 [facility] [place] [facility] [address] 340[address] [id number] [address] Jun, Migraine headache G43.909 ; Generalized abdominal pain R10.84 ; Viral gastritis K29.70 and Pain in left knee M25.562 [facility] [place] [facility] [address] 340[address] [id number] [address] May, [facility] [address] [facility] [id number] [address] [place] [address] May, [facility] [address] [id number] [place] [address] May, Migraine without aura and wi thout status migrainosus, not intractable G43.009 [facility] [address] [id number] [place] [address] May, Migraine without aura and wi thout status migrainosus, not intractable G43.[address] 340 [id number] [address] May, Generalized abdominal pain R 10.[address] [facility] [address] [facility] [id number] 100KS [place] [address] May, [facility] [address] [id number] [place] [address] May, [facility] WALK IN [facility] [address] [id number] [place] [address] Apr, Abdominal pain R10.9 ; Diarr hea, unspecified R19.7 and Nausea with vomiting, unspecified R11.[address] [id number] [address] Apr, [address] 340 [id number] [address] Apr, [address] [id number] [address] Apr, Thrombocytopenia D69.[address] [id number] [place] [address] Apr, Encounter for immunization Z [address] [id number] [place] [address] Apr, [address] [id number] [address] Apr, Thrombocytopenia D69.[address] [id number] [address] Apr, Hypothyroidism E03.9 and Hyp okalemia E87.[address] 340 [id number] [address] Apr, Migraine headache G43.909 ; Hypothyroidism E03.9 ; Hypokalemia E87.6 and Tooth pain K08.[address] [facility] [address] [id number] [place] [address] Mar, Migraine headache G43.[address] [facility] [address] [id number] [place] [address] Mar, Chronic migraine G43.709 [facility] [place] R[facility] [address] 340B [id number] [address] Mar, [facility] [address] [id number] [place] [address] Mar, Strep pharyngitis J02.0 and Sore throat J02.9 [facility] [address] [id number] [place] [address] Feb, Chronic migraine without aur a without status migrainosus, not intractable G43.709 [facility] [address] [id number] [place] [address] Jan, Viral gastritis K29.70 [facility] [place] [address] 340B [id number] [address] Jan, [facility] [address] 340B [id number] [place] [address] Jan, Migraine with aura and witho ut status migrainosus, not intractable G43.[address] [facility] [address] [id number] [place] [address] Dec, Migraine with aura and witho ut status migrainosus, not intractable G43.109 [facility] [address] [id number] [place] [address] Dec, Migraine without status migr ainosus, not intractable, unspecified migraine type G43.909 [facility] [address] [id number] [place] [address] Nov, Migraine without status migr ainosus, not intractable, unspecified migraine type G43.909 [facility] [place] R[facility] [address] 340[address] [id number] [place] [address] Nov, Possible exposure to STD Z20 .2 [facility] K[place] [address] 340B [id number] [address] Nov, Possible exposure to STD Z20 .2 [facility] [address] [facility] [id number] [address] [place] [address] October, [facility] KONST[place] [address] 340B [id number] [address] October, Dysfunction of right eustach terence tube H69.81 and Migraine headache G43.909 [facility] [address] [facility] [address] [id number] [place] [address] October, Excessive cerumen in left ea r canal H61.22 and Eustachian tube dysfunction H69.80 [facility] KONST[place]IN [address] 340B [id number] [address] Sep, Migraine headache G43.[address] 340[address] [id number] [address] Sep, Migraine headache G43.909 ; Impacted cerumen of left ear H61.22 and Migraine with aura and without status migrainosus, not intractable G43.109 [facility] [address] [facility] [id number] [address] [place] [address] Sep, [address] 340[address] [id number] [place] [address] Sep, Pain in left knee M25.562 an d Other chronic pain G89.[address] 340[address] [id number] [address] Sep, [facility] [address] [facility] [id number] [address] [place] [address] Sep, RLS (restless legs syndrome) G25.81 [facility] [address] [id number] [place] [address] Aug, Acute pain of left knee M25. 562 and RLS (restless legs syndrome) G25.81 [facility] [address] [id number] [place] [address] Aug, [facility] [address] 340[address] [id number] [place] [address] Aug, RLS (restless legs syndrome) G25.81 and Acute pain of left knee M25.562 [facility] KONST[place]IN [address] [id number] [place] [address] Aug, [facility] [address] [address] [id number] [place] [address] Aug, [facility] [facility] [address] [address] [id number] [place] [address] Aug, Migraine G43.909 [facility] KONSTANTIN [address] 340[address] [id number] [place] [address] Aug, Depression F32.9 ; Migraine headache G43.909 ; Migraine with aura and without status migrainosus, not intractable G43.109 ; Seasonal allergic reaction J30.2 ; Hypothyroidism E03.9 ; RLS (restless legs syndrome) G25.81 ; Allergic rhinitis J30.9 ; Hirsutism L68.0 ; Thrombocytopenia D69.6 ; Hypokalemia E87.6 and Injury of left knee, subsequent encounter S89.92XD [facility] [address] [id number] [place] [address] Aug, [facility] [address] [id number] [place] [address] Aug, Left leg pain M79.[address] [facility] [place] [address] [facility] [id number] [address] Aug, [facility] [address] [address] [id number] [place] [address] Aug, Left leg pain M79.605 and RL S (restless legs syndrome) G25.[address] [id number] [place] [address] Jul, Migraine with aura and witho ut status migrainosus, not intractable G43.109 ; Seasonal allergic reaction J30.2 and Hypokalemia E87.6 [facility] [address] [id number] [place] [id number] Jan, Dental examination V72.2 IMMUNIZATIONS No Known Immunizations SOCIAL HISTORY Never Assessed REASON FOR VISIT med refills PLAN OF CARE VITAL SIGNS MEDICATIONS Medication Instructions Dosage Frequency Start Date End Date Duration S tatus Xyzal Allergy 24HR 5 mg Orally Once a day 1 tablet in the evening 24h 30 day(s) Active Singulair 10 MG Orally Once a day 1 tablet 24h 30 da y(s) Active Pramipexole Dihydrochloride 0.5 MG Orally at bedtime as needed 1/2- 1 tablet Aug, 30 day(s) Active RESULTS No Results PROCEDURES No Known procedures INSTRUCTIONS MEDICATIONS ADMINISTERED No Known Medications MEDICAL (GENERAL) HISTORY Type Description Date Medical History drug seeking behavior Medical History Depression Medical History Migraine headache Medical History Hypothyroidism Medical History Allergic rhinitis Medical History Hirsutism Medical History Thrombocytopenia Medical History Hypokalemia Surgical History cholecystectomy 2017 Surgical History EGD Surgical History Gall Bladder Removal Hospitalization History problems with stomach Hospitalization History See Surgeries
--- OUTSIDE RECORDS SUMMARY | 2020-01-06 23:29 | XMS REPORT | Continuity of Care Document ---
Author Organization Unknown Address Unknown Phone Unavailable Allergies Active Description Code Type Severity Reaction Onset Reported/Identified Relationship to Patient Clinical Status Yes zolmitriptan [id number] Drug Allergy Unknown N/A 09/29/2019 Medications There is no data. Problems Date Dx Coded Attending Type Code Diagnosis Diagnosed By 05/03/1824 JOSE ROGER DO Ot Z01.8 18 ENCOUNTER FOR OTHER PREPROCEDURAL [...] STATUS TO OTH DRUG/MEDS/BIOL SUB 08/27/2018 ANDREW ODNAHUE MD Ot S89.92 XD UNSPECIFIED INJURY OF [...] DRUG/MEDS/BIOL SUB 09/13/2018 JAM MARIE DO Ot F32 .9 MAJOR DEPRESSIVE DISORDER, SINGLE EPISOD 09/13/2018 JAM MARIE DO Ot G25.81 RESTLESS LEGS SYNDROME 09/13/2018 FRANK SALAZAR JAM Allen Ot G43.909 MIGRAINE, UNSP, NOT INTRACTABLE, WITHOUT 09/13/2018 JAM MARIE DO Ot R51 HEADACHE 09/13/2018 JAM MARIE DO Ot Z88 .8 ALLERGY [...] DEPRESSIVE DISORDER, SINGLE EPISOD 01/08/2019 LEANDRO BOLIVAR, DUARTE O t G43.909 MIGRAINE, UNSP, NOT INTRACTABLE, WITHOUT 01/08/2019 LEANDRO BOLIVAR, JAM hayes Z87.891 PERSONAL HISTORY OF NICOTINE DEPENDENCE 01/08/2019 LEANDRO BOLIVAR, JAM hayes Z88.8 ALLERGY STATUS TO OTH DRUG/MEDS/BIOL SUB 01/10/2019 LEANDRO BOLIVAR, JAM Noble t F32.9 MAJOR DEPRESSIVE DISORDER, SINGLE EPISOD 01/10/2019 [...] MAJOR DEPRESSIVE DISORDER, SINGLE EPISOD 04/02/2019 JAIME DO ARIEL B Ot G43.909 MIGRAINE, UNSP, NOT INTRACTABLE, WITHOUT 04/02/2019 ARIEL SANDOVAL DO Ot R51 HEADACHE 04/02/2019 JAIME ARIEL B Ot Z87.891 PERSONAL HISTORY OF NICOTINE DEPENDENCE 04/02/2019 ARIEL SANDOVAL DO Ot Z88. 8 ALLERGY STATUS TO OTH DRUG/MEDS/BIOL SUB 04/21/2019 ANDREW DONAHUE MD Ot S89.92 XD UNSPECIFIED INJURY OF LEFT LOWER LEG, MCNEAL 05/04/2019 GILMER BOLIVAR, ANDREW Hoyos Ot F32. 9 MAJOR DEPRESSIVE DISORDER, SINGLE EPISOD 05/04/2019 GILMER BOLIVAR, ANDREW Hoyos Ot G43.909 MIGRAINE, UNSP, NOT INTRACTABLE, WITHOUT 05/04/2019 GILMER BOLIVAR, ANDREW J Ot K29. 70 GASTRITIS, UNSPECIFIED, WITHOUT BLEEDING 05/04/2019 GILMER BOLIVAR, ANDREW Hoyos Ot R10. 11 RIGHT UPPER QUADRANT PAIN 05/04/2019 ANDREW SCHERER MD Ot Z87.891 PERSONAL HISTORY OF NICOTINE DEPENDENCE 05/04/2019 ANDREW SCHERER MD Ot Z88. 8 ALLERGY STATUS TO OTH DRUG/MEDS/BIOL SUB 05/09/2019 ANDREW SCHERER MD Ot F32. 9 MAJOR DEPRESSIVE DISORDER, SINGLE EPISOD 05/09/2019 ANDREW SCHERER MD Ot G43.909 MIGRAINE, UNSP, NOT INTRACTABLE, WITHOUT 05/09/2019 GILMER BOLIVAR, ANDREW J Ot K29. 70 GASTRITIS, UNSPECIFIED, WITHOUT BLEEDING 05/09/2019 GILMER BOLIVAR, ANDREW J Ot R10. 11 RIGHT UPPER QUADRANT PAIN 05/09/2019 GILMER BOLIVAR, ANDREW Hoyos Ot Z87.891 PERSONAL HISTORY OF NICOTINE DEPENDENCE 05/09/2019 ANDREW SCHERER MD J Ot Z88. 8 ALLERGY STATUS TO OTH [...] INJURY OF LEFT LOWER LEG, MCNEAL 07/21/2019 DELMAN DO, JOSE B Ot Z01.8 18 [...] B Ot I10 ESSENTIAL (PRIMARY) HYPERTENSION 07/28/2019 DELMAN DO, OJSE B Ot K21.0 GASTRO-ESOPHAGEAL REFLUX DISEASE WITH ES 07/28/2019 KANA DO, JOSE B Ot K26.9 DUODENAL ULCER, UNSP ACUTE OR CHRONIC 07/28/2019 DELMAN DO, JOSE B Ot K29.5 0 UNSPECIFIED CHRONIC GASTRITIS WITHOUT BL 07/28/2019 DELMAN DO, JOSE B Ot K29.8 0 DUODENITIS WITHOUT BLEEDING 07/28/2019 FRANKELKMONT , JOSE B Ot K31.5 OBSTRUCTION OF DUODENUM 07/28/2019 [facility] B Ot K31.8 9 OTHER DISEASES OF STOMACH AND DUODENUM 07/28/2019 [facility] JOSE B Ot K44.9 DIAPHRAGMATIC HERNIA WITHOUT OBSTRUCTION 07/28/2019 FRANKELKMONT , JOSE B Ot Z68.3 0 BODY MASS INDEX (BMI) 30.0-30.9, ADULT 07/28/2019 FRANKERNESTO SALAZAR, JOSE B Ot 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 07/28/2019 FRANKELKMONT , JOSE B Ot Z79.8 99 OTHER SENIOR CARE (CURRENT) DRUG THERAPY 07/28/2019 [facility] JOSE B Ot Z80.9 FAMILY HISTORY OF MALIGNANT NEOPLASM, UN 07/28/2019 FRANKELKMONT , JOSE B Ot Z88.8 ALLERGY STATUS TO OTH DRUG/MEDS/BIOL SUB 07/28/2019 FRANKELKMONT DO JOSE B Ot Z90.4 9 ACQUIRED ABSENCE OF OTHER SPECIFIED PART 07/30/2019 SELF ANDREW BOLIVAR Ot S89.92 XD UNSPECIFIED INJURY OF LEFT LOWER LEG, MCNEAL 08/01/2019 FRANKELKMONT , JOSE B Ot E66.9 OBESITY, UNSPECIFIED 08/01/2019 FRANKELKMONT , JOSE B Ot F32.9 MAJOR DEPRESSIVE DISORDER, SINGLE EPISOD 08/01/2019 FRANKELKMONT , JOSE B Ot G43.9 09 MIGRAINE, UNSP, NOT INTRACTABLE, WITHOUT 08/01/2019 KANA SALAZAR, JOSE B Ot I10 ESSENTIAL (PRIMARY) HYPERTENSION 08/01/2019 FRANKELKMONT , JOSE B Ot K21.0 GASTRO-ESOPHAGEAL REFLUX DISEASE WITH ES 08/01/2019 FRANKELKMONT , JOSE B Ot K26.9 DUODENAL ULCER, UNSP ACUTE OR CHRONIC 08/01/2019 FRANKELKMONT , JOSE B Ot K29.5 0 UNSPECIFIED CHRONIC GASTRITIS WITHOUT BL 08/01/2019 FRANKELKMONT , JOSE B Ot K29.8 0 DUODENITIS WITHOUT BLEEDING 08/01/2019 FRANKELKMONT , JOSE B Ot K31.5 OBSTRUCTION OF DUODENUM 08/01/2019 FRANKELKMONT , JOSE B Ot K31.8 9 OTHER DISEASES OF STOMACH AND DUODENUM 08/01/2019 FRANKERNESTO SALAZAR, JOSE B Ot K44.9 DIAPHRAGMATIC HERNIA WITHOUT OBSTRUCTION 08/01/2019 KANA SALAZAR, JOSE B Ot Z68.3 0 BODY MASS INDEX (BMI) 30.0-30.9, ADULT 08/01/2019 KANA SALAZAR, JOSE B Ot 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 08/01/2019 KANA SALAZAR, JOSE B Ot Z79.8 99 OTHER SENIOR CARE (CURRENT) DRUG THERAPY 08/01/2019 KANA SALAZAR, JOSE B Ot Z80.9 FAMILY HISTORY OF MALIGNANT NEOPLASM, UN 08/01/2019 KANA SALAZAR, JOSE B Ot Z88.8 ALLERGY STATUS TO [facility] DRUG/MEDS/BIOL SUB 08/01/2019 KANA SALAZAR, JOSE B Ot Z90.4 9 ACQUIRED ABSENCE OF OTHER SPECIFIED PART 08/06/2019 SELF ANDREW BOLIVAR Ot S89.92 XD UNSPECIFIED INJURY OF LEFT LOWER LEG, MCNEAL 08/06/2019 SELF ANDREW BOLIVAR Ot S89.92 XD UNSPECIFIED INJURY OF LEFT LOWER LEG, MCNEAL 08/08/2019 KANA SALAZAR JOSE B Ot K44.9 DIAPHRAGMATIC HERNIA WITHOUT OBSTRUCTION 08/08/2019 KANA SALAZAR, JOSE B Ot K56.6 90 OTHER PARTIAL INTESTINAL OBSTRUCTION 08/08/2019 SELF ANDREW BOLIVAR Ot S89.92 XD UNSPECIFIED INJURY OF LEFT LOWER LEG, MCNEAL 08/08/2019 KANA SALAZAR, JOSE B Ot K44.9 DIAPHRAGMATIC HERNIA WITHOUT OBSTRUCTION 08/08/2019 KANA SALAZAR, JOSE B Ot K56.6 90 OTHER PARTIAL INTESTINAL OBSTRUCTION 08/16/2019 Ot F32.9 VITO R DEPRESSIVE DISORDER, SINGLE EPISOD 08/16/2019 Ot G43.909 ID GRAINE, UNSP, NOT INTRACTABLE, WITHOUT 08/16/2019 Ot J02.0 STRE PTOCOCCAL PHARYNGITIS 08/16/2019 Ot R51 HEADACHE 08/16/2019 Ot 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 08/16/2019 Ot Z88.8 NAGI RGY STATUS TO [facility] DRUG/MEDS/BIOL SUB 08/18/2019 KANA SALAZAR, JOSE B Ot K44.9 DIAPHRAGMATIC HERNIA WITHOUT OBSTRUCTION 08/18/2019 KANA SALAZAR, JOSE B Ot K56.6 90 OTHER PARTIAL INTESTINAL OBSTRUCTION 08/19/2019 Ot F32.9 VITO R DEPRESSIVE DISORDER, SINGLE EPISOD 08/19/2019 Ot G43.909 ID GRAINE, UNSP, NOT INTRACTABLE, WITHOUT 08/19/2019 Ot J02.0 STRE PTOCOCCAL PHARYNGITIS 08/19/2019 Ot R51 HEADACHE 08/19/2019 Ot 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 08/19/2019 Ot Z88.8 NAGI RGY STATUS TO OTH DRUG/MEDS/BIOL SUB 09/30/2019 DELMAN DO, JOSE B [...] INJURY OF LEFT LOWER LEG, MCNEAL 10/06/2019 DELMAN DO, JOSE B Ot K44.9 DIAPHRAGMATIC HERNIA WITHOUT OBSTRUCTION 10/06/2019 DELMAN DO, JOSE B Ot K56.6 90 OTHER PARTIAL INTESTINAL OBSTRUCTION 10/07/2019 SELF ANDREW BOLIVAR Ot S89.92 XD UNSPECIFIED INJURY OF LEFT LOWER LEG, MCNEAL 10/07/2019 DELMAN DO, JOSE B Ot K44.9 DIAPHRAGMATIC HERNIA WITHOUT OBSTRUCTION 10/07/2019 DELMAN DO, JOSE B Ot K56.6 90 OTHER PARTIAL INTESTINAL OBSTRUCTION 10/07/2019 ROVENSTINE DO, BILL Drummond Ot F32.9 MAJOR DEPRESSIVE DISORDER, SINGLE EPISOD 10/07/2019 ROVENSTINE DO, BILL L Ot G43.909 MIGRAINE, UNSP, NOT INTRACTABLE, WITHOUT 10/07/2019 ROVENSTINE DO, BILL L Ot R51 HEADACHE 10/07/2019 ROVENSTINE DO, BILL L Ot Z87.891 PERSONAL HISTORY OF NICOTINE DEPENDENCE 10/07/2019 ROVENSTINE DO, BILL L Ot Z88.8 ALLERGY STATUS TO OTH DRUG/MEDS/BIOL SUB 10/09/2019 ROVENSTINE DO, BILL L Ot F32.9 MAJOR DEPRESSIVE DISORDER, SINGLE EPISOD 10/09/2019 ROVENSTINE DO, BILL Drummond Ot G43.909 MIGRAINE, UNSP, NOT INTRACTABLE, WITHOUT 10/09/2019 ROVENSTINE DO, BILL L Ot R51 HEADACHE 10/09/2019 ROVENSTINE DO, BILL L Ot Z87.891 PERSONAL HISTORY OF NICOTINE DEPENDENCE 10/09/2019 ROVENSTINE DO, BILL L Ot Z88.8 ALLERGY STATUS TO OTH DRUG/MEDS/BIOL SUB 10/09/2019 ROVENSTINE DO, BILL L Ot F32.9 MAJOR DEPRESSIVE DISORDER, SINGLE EPISOD 10/09/2019 ROVENSTINE DO, BILL L Ot G43.909 MIGRAINE, UNSP, NOT INTRACTABLE, WITHOUT 10/09/2019 ROVENSTINE DO, BILL L Ot R51 HEADACHE 10/09/2019 ROVENSTINE DO, BILL Drummond Ot Z87.891 PERSONAL HISTORY OF NICOTINE DEPENDENCE 10/09/2019 ROVENSTINE DO, BILL L Ot Z88.8 ALLERGY STATUS TO OTH DRUG/MEDS/BIOL SUB 10/09/2019 SELF ANDREW BOLIVAR Ot S89.92 XD UNSPECIFIED INJURY OF LEFT LOWER LEG, MCNEAL 10/09/2019 DELMAN DO, JOSE B Ot K44.9 DIAPHRAGMATIC HERNIA WITHOUT OBSTRUCTION 10/09/2019 DELMAN DO, JOSE B Ot K56.6 90 OTHER PARTIAL INTESTINAL OBSTRUCTION 10/09/2019 ANGELO DO, PAZ L Ot F32.9 MAJOR DEPRESSIVE DISORDER, SINGLE EPISOD 10/09/2019 ANGELO DO, PAZ L Ot G43.9 09 MIGRAINE, UNSP, NOT INTRACTABLE, WITHOUT 10/09/2019 ANGELO DO, PAZ L Ot J02.9 ACUTE PHARYNGITIS, UNSPECIFIED 10/09/2019 ANGELO DO, PAZ L Ot K29.5 0 UNSPECIFIED CHRONIC GASTRITIS WITHOUT BL 10/09/2019 ANGELO DO, PAZ L Ot R50.9 FEVER, UNSPECIFIED 10/09/2019 ANGELO DO, PAZ L Ot Z87.8 91 PERSONAL HISTORY OF NICOTINE DEPENDENCE 10/09/2019 ANGELO DO, PAZ L Ot Z88.8 ALLERGY STATUS TO OTH DRUG/MEDS/BIOL SUB 10/10/2019 DELMAN DO, JOSE B Ot F32.9 MAJOR DEPRESSIVE DISORDER, SINGLE EPISOD 10/10/2019 DELMAN DO, JOSE B Ot G43.9 09 MIGRAINE, UNSP, NOT INTRACTABLE, WITHOUT 10/10/2019 DELMAN DO, JOSE B Ot K21.9 GASTRO-ESOPHAGEAL REFLUX DISEASE WITHOUT 10/10/2019 DELELKMONT DO, JOSE B Ot K26.9 DUODENAL ULCER, UNSP ACUTE OR CHRONIC 10/10/2019 [facility] DO, JOSE B Ot K29.5 0 UNSPECIFIED CHRONIC GASTRITIS WITHOUT BL 10/10/2019 DELELKMONT DO, JOSE B Ot K29.8 0 DUODENITIS WITHOUT BLEEDING 10/10/2019 [facility] DO, JOSE B Ot 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 10/10/2019 DELELKMONT DO, JOSE B Ot K31.5 OBSTRUCTION OF DUODENUM 10/10/2019 [facility] DO, JOSE B Ot K44.9 DIAPHRAGMATIC HERNIA WITHOUT OBSTRUCTION 10/10/2019 [facility] DO, JOSE B Ot Z79.8 99 OTHER SENIOR CARE (CURRENT) DRUG THERAPY 10/10/2019 [facility], JOSE B Ot Z80.9 FAMILY HISTORY OF MALIGNANT NEOPLASM, UN 10/10/2019 [facility] DO, JOSE B Ot Z88.8 ALLERGY STATUS TO OTH DRUG/MEDS/BIOL SUB 10/10/2019 [facility] DO, JOSE B Ot Z90.4 9 ACQUIRED ABSENCE OF OTHER SPECIFIED PART 10/13/2019 ANGELO DO, PAZ L Ot F32.9 MAJOR DEPRESSIVE DISORDER, SINGLE EPISOD 10/13/2019 ANGELO DO, PAZ L Ot G43.9 09 MIGRAINE, UNSP, NOT INTRACTABLE, WITHOUT 10/13/2019 ANGELO DO, PAZ L Ot J02.9 ACUTE PHARYNGITIS, UNSPECIFIED 10/13/2019 ANGELO DO, PAZ L Ot K29.5 0 UNSPECIFIED CHRONIC GASTRITIS WITHOUT BL 10/13/2019 ANGELO DO, PAZ L Ot R50.9 FEVER, UNSPECIFIED 10/13/2019 ANGELO DO, PAZ L Ot Z87.8 91 PERSONAL HISTORY OF NICOTINE DEPENDENCE 10/13/2019 ANGELO DO, PAZ L Ot Z88.8 ALLERGY STATUS TO OTH DRUG/MEDS/BIOL SUB 10/21/2019 DELELKMONT DO, JOSE B Ot F32.9 MAJOR DEPRESSIVE DISORDER, SINGLE EPISOD 10/21/2019 DELELKMONT DO, JOSE B Ot G43.9 09 MIGRAINE, UNSP, NOT INTRACTABLE, WITHOUT 10/21/2019 DELMAN DO, JOSE B Ot K21.9 GASTRO-ESOPHAGEAL REFLUX DISEASE WITHOUT 10/21/2019 DELMAN DO, JOSE B Ot K26.9 DUODENAL ULCER, UNSP ACUTE OR CHRONIC 10/21/2019 DELELKMONT DO, JOSE B Ot K29.5 0 UNSPECIFIED CHRONIC GASTRITIS WITHOUT BL 10/21/2019 DELERNESTO DO, JOSE B Ot K29.8 0 DUODENITIS WITHOUT BLEEDING 10/21/2019 [facility] DO, JOSE B Ot 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 10/21/2019 [facility] DO, JOSE B Ot K31.5 OBSTRUCTION OF DUODENUM 10/21/2019 [facility] DO, JOSE B Ot K44.9 DIAPHRAGMATIC HERNIA WITHOUT OBSTRUCTION 10/21/2019 [facility] DO, JOSE B Ot 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 10/21/2019 [facility] DO, JOSE B Ot Z80.9 FAMILY HISTORY OF MALIGNANT NEOPLASM, UN 10/21/2019 KANA DO, JOSE B Ot Z88.8 ALLERGY STATUS TO OTH DRUG/MEDS/BIOL SUB 10/21/2019 FRANKELKMONT DO, JOSE B Ot Z90.4 9 ACQUIRED ABSENCE OF OTHER SPECIFIED PART 10/21/2019 FRANKELKMONT DO, JOSE B Ot F32.9 MAJOR DEPRESSIVE DISORDER, SINGLE EPISOD 10/21/2019 [facility] DO, JOSE B Ot G43.9 09 MIGRAINE, UNSP, NOT INTRACTABLE, WITHOUT 10/21/2019 FRANKELKMONT DO, JOSE B Ot K21.9 GASTRO-ESOPHAGEAL REFLUX DISEASE WITHOUT 10/21/2019 [facility] DO, JOSE B Ot K26.9 DUODENAL ULCER, UNSP ACUTE OR CHRONIC 10/21/2019 [facility] DO, JOSE B Ot K29.5 0 UNSPECIFIED CHRONIC GASTRITIS WITHOUT BL 10/21/2019 [facility] DO, JOSE B Ot K29.8 0 DUODENITIS WITHOUT BLEEDING 10/21/2019 DELELKMONT DO, JOSE B Ot 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 Results Test Result Range HEP B SURFACE ANTIGEN - 11/18/18 11:17 HEPATITIS B SURFACE ANTIGEN NON-REACTIVE NON-REACTIVE CMP - 01/13/19 09:45 GLUCOSE 96 mg/dL 65-99 UREA NITROGEN (BUN) 17 mg/dL 7-25 CREATININE 0.81 mg/dL 0.50-1.10 eGFR NON-AFR. FINNISH 91 mL/min/1.73m2 > OR = 60 eGFR [...] 7-25 CREATININE 0.91 mg/dL 0.50-1.10 eGFR NON-AFR. FINNISH 78 mL/min/1.73m2 > OR = 60 eGFR [...] 7-25 CREATININE 0.89 mg/dL 0.50-1.10 eGFR NON-AFR. FINNISH 81 mL/min/1.73m2 > OR = 60 eGFR [...] BY IA NRG Coronavirus SARS-CoV-2 SO 2018 - 0 13:00 Coronavirus Ab [Units/volume] in Serum Negative Negative Streptococcus pyogenes antigen detection - 10/09/19 09:30 Streptococcus pyogenes antigen detection NEGATIVE NEGATIVE Bacterial throat culture - 10/09/19 09:3 0 Bacterial throat culture NBS NRG Encounters ACCT No. Visit Date/Time Discharge Status Pt. Type Provider Facility Loc./Unit Complaint [id number] 01/05/2020 07:00:00 ACT Outpatient SELF, ANDREW Hoyos [facility] [id number] 06/05/2019 11:00:00 Document Registration [id number] 05/07/2019 09:45:00 Document Registration [id number] 04/28/2019 13:40:00 Document Registration [id number] 04/07/2019 15:45:00 Document Registration [id number] 01/13/2019 09:30:00 Document Registration [id number] 11/18/2018 11:00:00 Document Registration [id number] 10/09/2019 09:06:00 10:20:00 DIS Emergency ANGELO DOPAZ L [facility] ER FS FEVER,COUGH,POST OP SCO PE [id number] 10/07/2019 06:01:00 06:29:00 DIS Emergency ROVENSTINE DOBILL L [facility] ER FS MIGRAINE [id number] 10/06/2019 07:46:00 23:59:59 CLS Outpatient DELERNESTO DO, JOSE B [facility] ENDO GERD [id number] 10/02/2019 12:04:00 18:25:00 DIS Outpatient DELERNESTO DO, JOSE B [facility] PREOP EGD [id number] 08/06/2019 10:15:00 23:59:59 CLS Outpatient DELERNESTO DO, JOSE B [facility] RAD OTHER PARTIAL INTESTINA L OBSTRUCTION [id number] 07/28/2019 08:01:00 10:35:00 DIS Outpatient DELERNESTO DO, JOSE B [facility] ENDO CHRONIC GASTRITIS [id number] 07/21/2019 05:36:00 020 15:18:00 DIS Outpatient DELERNESTO DO, JOES B [facility] PREOP EGD [id number] 06/16/2019 06:28:00 020 06:51:00 DIS Emergency JOSE LUIS GRACIA MD [facility] ER FS HEADACHE [id number] 05/04/2019 08:10:00 10:00:00 DIS Emergency GILMER BOLIVAR, ANDREW Hoyos [facility] ER FS STOMACH PAIN [id number] 04/02/2019 09:12:00 10:20:00 DIS Emergency JAIME SALAZAR, ARIEL De Leon [facility] ER FS HEADACHE [id number] 01/20/2019 09:06:00 13:00:00 DIS Emergency PACHECO BOLIVAR, CHELY S [facility] ER FS VOMITING [id number] 12/23/2018 06:11:00 06:48:00 DIS Emergency LEANDRO BOLIVAR, THUAN Hoyos [facility] ER FS MIGRAINE [id number] 11/23/2018 06:59:00 07:44:00 DIS Emergency DARCI AGUERO DO [facility] ER FS MIGRAINE [id number] 10/12/2018 03:35:00 04:43:00 DIS Emergency DARCI AGUERO DO [facility] ER FS MIGRAINE [id number] 09/18/2018 06:20:00 07:15:00 DIS Emergency JW BOLIVAR, JEN Allen [facility] ER FS MIGRAINE [id number] 09/11/2018 08:17:00 09:00:00 DIS Emergency JAM MARIE DO [facility] ER FS HEADACHE [id number] 08/15/2018 07:50:00 08:40:00 DIS Emergency JEN ESCALERA MD [facility] ER FS MIGRAINE [id number] 08/13/2018 11:50:00 23:59:59 CLS Outpatient ANDREW DONAHUE MD [facility] RAD FS [id number] 01/06/2020 23:15:[address] Emergency CÉSARVENSTBILL MARTINEZ DO [facility] ER FS MIGRAINE [id number] 08/16/2019 06:46:00 Document Registration
[2020-01-06] MEDS ORDERED: KETOROLAC 60 MG/2 ML VIAL IM ONE (23:30)
[2020-01-06] MEDS ORDERED: METOCLOPRAMIDE INJ 10 MG/2 ML (REGLAN) IM ONE (23:30)
[2020-01-06] MEDS ORDERED: diphenhydrAMINE 50 MG/ML INJ (BENADRYL) IM ONE (23:30)
== END 2020-01-06 23:44 | disposition home or self-care (01) ==
LOC: EDUNIT# 23:13 → ER FS 23:15
DX: G43.709 Chronic migraine without aura, not intractable, without status migrainosus (principal); F32.9 Major depressive disorder, single episode, unspecified; Z88.8 Allergy status to other drugs, medicaments and biological substances; Z87.891 Personal history of nicotine dependence
CPT/HCPCS: 96372; 99284

== ENCOUNTER 2020-02-09 13:48 | Emergency (ER) | payer MEDICARE, MEDICAID ==
[~2020-02-09] VITALS: Ht 160 cm; Wt 84.6 kg
--- NOTE | 2020-02-09 14:06 | ED General ---
General Stated Complaint: MOUSE BITE Source of Information: Patient History of Present Illness Date Seen by Provider: Feb 09, 2020 Time Seen by Provider: 14:24 Initial Comments Patient is a 39-year-old female who comes to the emergency department after being bitten by mouth. She states she had exposure to a small mouse and it somehow managed to bite her on the right side of her body over the mid rib cage. Incident happened just prior to presentation. Patient is only concerned about infection and that she needs a tetanus shot. She has no additional complaints today. Allergies and Home Medications Allergies Coded Allergies: zolmitriptan (Verified Adverse Reaction, Unknown, 09/29/19) Home Medications Cephalexin 500 Mg Capsule, 500 MG PO TID Prescribed by: EDI HIGGINBOTHAM on 02/09/20 1431 Cetirizine HCl 10 Mg Tablet, 10 MG PO DAILY, (Reported) Citalopram Hydrobromide 40 Mg Tablet, 40 MG PO DAILY, (Reported) Ferrous Sulfate 325 Mg Tablet, 325 MG PO DAILY, (Reported) Levothyroxine Sodium 88 Mcg Tablet, 88 MCG PO HS, (Reported) Montelukast Sodium 10 Mg Tablet, 10 MG PO HS, (Reported) Pantoprazole Sodium 20 Mg Tablet.dr, 20 MG PO BID, (Reported) Propranolol HCl 20 Mg Tablet, 20 MG PO BID, (Reported) Topiramate 100 Mg Tablet, 100 MG PO TID, (Reported) Patient Home Medication List Home Medication List Reviewed: Yes Review of Systems Review of Systems Constitutional: no symptoms reported EENTM: no symptoms reported Respiratory: no symptoms reported Cardiovascular: no symptoms reported Genitourinary: no symptoms reported Musculoskeletal: no symptoms reported Skin: see HPI All Other Systems Reviewed Negative Unless Noted: Yes Past Hhhbsmb-Lyqcmv-Gvsmmt Hx Patient Social History Type Used: Cigarettes Former Smoker, Quit: October 17, 2017 2nd Hand Smoke Exposure: No Recent Foreign Travel: No Contact w/Someone Who Travel: No Recent Hopitalizations: No Immunizations Up To Date Date of Influenza Vaccine: Mar 04, 2019 Seasonal Allergies Seasonal Allergies: Yes Past Medical History Surgeries: Yes Gallbladder Respiratory: No Cardiac: No Neurological: Yes Headaches /Migraines Genitourinary: No Gastrointestinal: Yes (chronic gastritis) Musculoskeletal: Yes (RLS) Endocrine: No HEENT: No Cancer: No Psychosocial: Yes Depression Integumentary: No Blood Disorders: No Physical Exam Vital Signs Capillary Refill : Height, Weight, BMI Height: 5'3.00" Weight: 160lbs. 0oz. 72.933678gs; 30.00 BMI Method:Stated General Appearance: No Apparent Distress, WD/WN Neck: Full Range of Motion Respiratory: Lungs Clear Cardiovascular: Regular Rate, Rhythm Neurologic/Psychiatric: Alert, Oriented x3 Skin: Normal Color, Warm/Dry Progress/Results/Core Measures Suspected Sepsis SIRS Temperature: Pulse: Respiratory Rate: Blood Pressure / Mean: Results/Orders My Orders Orders - EDI HIGGINBOTHAM DO Dipht,Pertuss(Acell),Tet Adult (Boostrix (02/09/20 14:30) Vital Signs/I&O Capillary Refill : Progress Note : Time: 14:33 Progress Note Patient is seen and examined on arrival to her room. On physical exam, there is no visible deformity or injury or break in skin in the area where the patient feels that she sustained a bite. She is otherwise healthy-appearing and nontoxic. She has no additional complaints. In the ER, she is given a tetanus immunization. I did prescribe her some Keflex and she will hold onto the prescription and only fill if she develops any redness or symptoms at the site with a bite occurred. Otherwise, she will follow up with her primary care doctor. Departure Impression Primary Impression: Bite by animal Disposition: 01 HOME, SELF-CARE Condition: Improved Departure-Patient Inst. Referrals: SELF,ANDREW BOLIVAR (PCP/Family) Primary Care Physician Scripts Cephalexin (Keflex) 500 Mg Capsule 500 MG PO TID for 7 Days, #21 CAP Prov: EDI HIGGINBOTHAM DO 02/09/20 EDI HIGGINBOTHAM DO Feb 09, 2020 14:06
[2020-02-09 14:19] VITALS: BP 126/84
[2020-02-09] MEDS ORDERED: TETANUS,DIPTH,PERTUSS P/F (BOOSTRIX) 0.5 ML VIAL IM ONE (14:30)
[2020-02-09] MEDS ORDERED: CEPH-507 PO (14:31)
== END 2020-02-09 14:41 | disposition home or self-care (01) ==
LOC: EDUNIT# 13:48 → ER FS 13:50
DX: S21.151A Open bite of right front wall of thorax without penetration into thoracic cavity, initial encounter (principal); Z23 Encounter for immunization; Z87.891 Personal history of nicotine dependence; Z88.8 Allergy status to other drugs, medicaments and biological substances; W53.11XA Bitten by rat, initial encounter
CPT/HCPCS: 90715; 99284

== ENCOUNTER 2020-06-13 11:25 | Emergency (ER) | payer MEDICARE, MEDICAID ==
[~2020-06-13] VITALS: Ht 160 cm; Wt 71.0 kg
[~2020-06-13 11:25] MED LIST changes: +CEPH-507 PO; -MONT10TA26 PO; +MONT10TA97 PO; +PANT20TA18 PO; -PANT20TA3 PO
[2020-06-13] MEDS ORDERED: METOCLOPRAMIDE INJ 10 MG/2 ML (REGLAN) IVP STA (12:04)
[2020-06-13] MEDS ORDERED: KETOROLAC 30 MG/ML VIAL IVP STA (12:04)
[2020-06-13] MEDS ORDERED: PANTOPRAZOLE 40 MG (PROTONIX) VIAL IV STA (12:04)
[2020-06-13] MEDS ORDERED: NS IV 1000 ML 1,000 ML IV SCH (12:15)
[2020-06-13 12:20] LABS: BASOPHILS % (AUTO) 0 % (0-10); EOSINOPHILS % (AUTO) 2 % (0-10); HEMATOCRIT 50 % (35-52); HEMOGLOBIN 16.3 G/DL (11.5-16.0); LYMPHOCYTES % (AUTO) 25 % (12-44); MEAN CORPUSCULAR HEMOGLOBIN 27 PG (25-34); MEAN CORPUSCULAR HGB CONC 33 G/DL (32-36); MEAN CORPUSCULAR VOLUME 83 FL (80-99); MEAN PLATELET VOLUME 9.7 FL (7.4-10.4); MONOCYTES % (AUTO) 6 % (0-12); NEUTROPHILS % (AUTO) 66 % (42-75); PLATELET COUNT 527 10^3/uL (130-400); WHITE BLOOD COUNT 12.5 10^3/uL (4.3-11.0)
[2020-06-13 12:21] LABS: BASOPHILS # (AUTO) 0.1 10^3/uL (0.0-0.1); EOSINOPHILS # (AUTO) 0.3 10^3/uL (0.0-0.3); LYMPHOCYTES # (AUTO) 3.2 X 10^3 (1.0-4.0); MONOCYTES # (AUTO) 0.8 X 10^3 (0.0-1.0); NEUTROPHILS # (AUTO) 8.2 X 10^3 (1.8-7.8)
[2020-06-13 12:22] LABS: CREATININE SERUM 1.43 MG/DL (0.60-1.30); POTASSIUM 3.4 MMOL/L (3.6-5.0)
[2020-06-13 12:23] LABS: ALBUMIN 4.3 GM/DL (3.2-4.5); BILIRUBIN,TOTAL 0.3 MG/DL (0.1-1.0); CALCIUM 10.1 MG/DL (8.5-10.1); TOTAL PROTEIN 7.7 GM/DL (6.4-8.2)
[2020-06-13] MEDS ORDERED: LIDOCAINE 2% VISCOUS 15 ML UDC PO ONE (13:15)
[2020-06-13] MEDS ORDERED: ANTACID SUSP 30 ML UDC (MYLANTA) PO ONE (13:15)
--- NOTE | 2020-06-13 13:17 | ED General ---
General Chief Complaint: Abdominal/GI Problems Nursing Triage Note: Brought in by EMS for nausea and vomiting. Has been unable to keep anything down for past 3-4 days and feels weak. States she fell out of bed this morning. Nursing Sepsis Screen: No Definite Risk Source of Information: Patient, EMS History of Present Illness Date Seen by Provider: Jun 13, 2020 Time Seen by Provider: 12:54 Initial Comments 40 yo Female presenting by EMS after having several days of nausea and vomiting home as well as feeling very weak. She states that she slid to the floor from bed this morning. She has epigastric pain and headache. She denies any diarrhea. She has had nausea vomiting and her Zofran that she takes at home was not helping. She denies any burning or pain with urination but has not urinated as much in the last 24 hours. she denies any fever or chills. She has a headache that feels similar to her normal migraine type headache. The epigastric abdominal pain is something that she has had before as well with nausea, vomiting, gastroparesis. Allergies and Home Medications Allergies Coded Allergies: zolmitriptan (Verified Adverse Reaction, Unknown, 09/29/19) Home Medications Cephalexin 500 Mg Capsule, 500 MG PO TID Prescribed by: EDI HIGGINBOTHAM on 02/09/20 1431 Cephalexin 500 Mg Tablet, 500 MG PO TID Prescribed by: MIGUELITO GUZMÁN on 06/13/20 1533 Cetirizine HCl 10 Mg Tablet, 10 MG PO DAILY, (Reported) Citalopram Hydrobromide 40 Mg Tablet, 40 MG PO DAILY, (Reported) Ferrous Sulfate 325 Mg Tablet, 325 MG PO DAILY, (Reported) Levothyroxine Sodium 88 Mcg Tablet, 88 MCG PO HS, (Reported) Metoclopramide HCl 10 Mg Tablet, 10 MG PO Q6H PRN for NAUSEA/VOMITING Prescribed by: MIGUELITO GUZMÁN on 06/13/20 1533 Montelukast Sodium 10 Mg Tablet, 10 MG PO HS, (Reported) Pantoprazole Sodium 20 Mg Tablet.dr, 20 MG PO BID, (Reported) Propranolol HCl 20 Mg Tablet, 20 MG PO BID, (Reported) Topiramate 100 Mg Tablet, 100 MG PO TID, (Reported) Patient Home Medication List Home Medication List Reviewed: Yes Review of Systems Review of Systems Constitutional: No chills, No fever; malaise, weakness (general) EENTM: No ear discharge, No blurred vision, No nose congestion Respiratory: no symptoms reported Cardiovascular: no symptoms reported Gastrointestinal: see HPI Genitourinary: see HPI Musculoskeletal: no symptoms reported Skin: no symptoms reported Psychiatric/Neurological: Headache Past Hjzdmuv-Svepgi-Wfyopl Hx Past Med/Social Hx: Reviewed Nursing Past Med/Soc Hx Patient Social History Alcohol Use: Denies Use Recreational Drug Use: No Smoking Status: Former Smoker Type Used: Cigarettes Former Smoker, Quit: October 17, 2017 2nd Hand Smoke Exposure: No Recent Foreign Travel: No Contact w/Someone Who Travel: No Recent Infectious Disease Expo: No Recent Hopitalizations: No Physical Abuse: No Sexual Abuse: No Mistreated: No Fear: No Immunizations Up To Date Date of Influenza Vaccine: Mar 04, 2019 Seasonal Allergies Seasonal Allergies: Yes Past Medical History Surgeries: Yes Gallbladder Respiratory: No Cardiac: No Neurological: Yes Headaches /Migraines Genitourinary: No Gastrointestinal: Yes (chronic gastritis) Musculoskeletal: Yes (RLS) Endocrine: No HEENT: No Cancer: No Psychosocial: Yes Depression Integumentary: No Blood Disorders: No Physical Exam Vital Signs Vital Signs - First Documented 06/13/20 11:30 Temp 36.9 Pulse 96 Resp 16 B/P (MAP) 136/105 (115) Pulse Ox 97 Capillary Refill : Less Than 3 Seconds Height, Weight, BMI Height: 5'3.00" Weight: 160lbs. 0oz. 72.532344xb; 27.00 BMI Method:Stated General Appearance: Anxious, Chronically ill HEENT: PERRL/EOMI; No Moist Mucous Membranes (dry mucous membranes) Neck: Full Range of Motion, Non Tender, Supple Respiratory: Chest Non Tender, Lungs Clear, Normal Breath Sounds Cardiovascular: Regular Rate, Rhythm, Normal Peripheral Pulses Gastrointestinal: Normal Bowel Sounds, No Pulsatile Mass, Soft; No Distended, No Guarding, No Rebound; Tenderness (epigastric) Rectal: Deferred Extremity: Normal Capillary Refill, Normal Inspection, No Pedal Edema Neurologic/Psychiatric: Alert, Oriented x3, Other (anxious) Skin: Normal Color, Warm/Dry Progress/Results/Core Measures Suspected Sepsis Recent Fever Within 48 Hours: No Infection Criteria Present: Suspected New Infection New/Unexplained Altered Menta: No Sepsis Screen: No Definite Risk SIRS Temperature: Pulse: 96 Respiratory Rate: 16 Laboratory Tests 06/13/20 11:45: White Blood Count 12.5H Blood Pressure 136 /105 Mean: 115 Laboratory Tests 06/13/20 11:45: Creatinine 1.43H, Platelet Count 527H, Total Bilirubin 0.3 Results/Orders Lab Results Laboratory Tests Test 06/13/20 11:45 06/13/20 11:50 Range/Units White Blood Count 12.5 H 4.3-11.0 10^3/uL Red Blood Count 6.02 H 4.35-5.85 10^6/uL Hemoglobin 16.3 H 11.5-16.0 G/DL Hematocrit 50 35-52 % Mean Corpuscular Volume 83 80-99 FL Mean Corpuscular Hemoglobin 27 25-34 PG Mean Corpuscular Hemoglobin Concent 33 32-36 G/DL Red Cell Distribution Width 12.3 10.0-14.5 % Platelet Count 527 H 130-400 10^3/uL Mean Platelet Volume 9.7 7.4-10.4 FL Immature Granulocyte % (Auto) 0 % Neutrophils (%) (Auto) 66 42-75 % Lymphocytes (%) (Auto) 25 12-44 % Monocytes (%) (Auto) 6 0-12 % Eosinophils (%) (Auto) 2 0-10 % Basophils (%) (Auto) 0 0-10 % Neutrophils # (Auto) 8.2 H 1.8-7.8 X 10^3 Lymphocytes # (Auto) 3.2 1.0-4.0 X 10^3 Monocytes # (Auto) 0.8 0.0-1.0 X 10^3 Eosinophils # (Auto) 0.3 0.0-0.3 10^3/uL Basophils # (Auto) 0.1 0.0-0.1 10^3/uL Immature Granulocyte # (Auto) 0.0 0.0-0.1 10^3/uL Sodium Level 138 135-145 MMOL/L Potassium Level 3.4 L 3.6-5.0 MMOL/L Chloride Level 90 L 98-107 MMOL/L Carbon Dioxide Level 30 21-32 MMOL/L Anion Gap 18 H 5-14 MMOL/L Blood Urea Nitrogen 38 H 7-18 MG/DL Creatinine 1.43 H 0.60-1.30 MG/DL Estimat Glomerular Filtration Rate 40 BUN/Creatinine Ratio 27 Glucose Level 138 H 70-105 MG/DL Calcium Level 10.1 8.5-10.1 MG/DL Corrected Calcium 9.9 8.5-10.1 MG/DL Total Bilirubin 0.3 0.1-1.0 MG/DL Aspartate Amino Transf (AST/SGOT) 31 5-34 U/L Alanine Aminotransferase (ALT/SGPT) 22 0-55 U/L Alkaline Phosphatase 169 H 40-136 U/L Total Protein 7.7 6.4-8.2 GM/DL Albumin 4.3 3.2-4.5 GM/DL Lipase 49 8-78 U/L Urine Color NATALYA H Urine Clarity CLOUDY H Urine pH 5.5 5-9 Urine Specific [place] >=1.030 1.016-1.022 Urine Protein 2+ H NEGATIVE Urine Glucose (UA) NEGATIVE NEGATIVE Urine Ketones 3+ H NEGATIVE Urine Nitrite NEGATIVE NEGATIVE Urine Bilirubin 3+ H NEGATIVE Urine Urobilinogen 0.2 < = 1.0 MG/DL Urine Leukocyte Esterase 1+ H NEGATIVE Urine RBC (Auto) NEGATIVE NEGATIVE Urine RBC NONE /HPF Urine WBC 50-100 H /HPF Urine Squamous Epithelial Cells TNTC H /HPF Urine Crystals NONE /LPF Urine Bacteria LARGE H /HPF Urine Casts NONE /LPF Urine Mucus MODERATE H /LPF Urine Culture Indicated YES My Orders Orders - MIGUELITO GUZMÁN MD Comprehensive Metabolic Panel (06/13/20 12:03) Lipase (06/13/20 12:03) Ua Culture If Indicated (06/13/20 12:03) Ed Iv/Invasive Line Start (06/13/20 12:03) Cbc With Automated Diff (06/13/20 12:03) Ns Iv 1000 Ml (Sodium Chloride 0.9%) (06/13/20 12:15) Metoclopramide Injection (Reglan Injecti (06/13/20 12:04) Ketorolac Injection (Toradol Injection) (06/13/20 12:04) Pantoprazole Injection (Protonix Injecti (06/13/20 12:04) Ct Abdomen/Pelvis Wo (06/13/20 13:15) Lidocaine 2% Viscous 15 Ml (Xylocaine Vi (06/13/20 13:15) Antacid Suspension (Mylanta Suspension (06/13/20 13:15) Urine Culture (06/13/20 11:50) Ceftriaxone For Iv Use (Rocephin For I (06/13/20 15:29) Medications Given in ED Current Medications Medications Dose Ordered Sig/Hernan Route Start Time Stop Time Status Last Admin Dose Admin Al Hydrox/Mg Hydrox/Simethicone 30 ml ONCE ONCE PO 06/13/20 13:15 06/13/20 13:17 DC 06/13/20 13:39 30 ML Lidocaine HCl 15 ml ONCE ONCE PO 06/13/20 13:15 06/13/20 13:17 DC 06/13/20 13:39 15 ML Vital Signs/I&O 06/13/20 06/13/20 11:30 15:54 Temp 36.9 Pulse 96 85 Resp 16 18 B/P (MAP) 136/105 (115) 120/88 Pulse Ox 97 99 Capillary Refill : Less Than 3 Seconds Blood Pressure Mean: 115 Progress Note #1: Progress Note obtain basic labs and urinalysis. Give a liter of normal saline for hydration. Based on previous visits for migraines and abdominal pain will try Reglan, Benadryl, Protonix. Progress Note #2: Progress Note labs show mild elevation of her white blood cell count to 12.5. Her chemistry appear stable other than elevated BUN and Cr to go with dehydration and negative lipase. Her symptoms were improved with medication and treatment. She was able to tolerate some ice chips. With her elevated white blood cell count and epigastric pain and a CT scan was also ordered Progress Note #3: Progress Note CT scan shows distended stomach but no other acute finding. Give GI cocktail for her stomach pain and finally able to obtain urine sample for testing. The UA show signs of infection but also had epithelial cells in it. Will give Rocephin here and discharged on Keflex. Discharge on Reglan since that seemed to help with her symptoms here. Encouraged to follow-up with primary in clinic for continued symptoms or if not improving. Diagnostic Imaging Diagonstic Imaging: CT Plain Films/CT/US/NM/MRI: abdomen, pelvis Comments [facility]. [place], [place] NAME: MITCH ECHOLS MED REC#: [id number] PT STATUS: REG ER : 1980 PHYSICIAN: MIGUELITO GUZMÁN MD ADMIT DATE: 06/13/20/ER FS Signed Date of Exam:06/13/20 CT ABDOMEN/PELVIS WO PROCEDURE: CT abdomen and pelvis without contrast. TECHNIQUE: Multiple contiguous axial images were obtained through the abdomen and pelvis without the use of intravenous contrast. Auto Exposure Controls were utilized during the CT exam to meet ALARA standards for radiation dose reduction. INDICATION: Epigastric pain with nausea and vomiting for 2 days. The lung bases are clear. Gallbladder is absent. The liver and bile ducts are normal. The spleen, pancreas and adrenals are normal. There is a 4 mm nonobstructing calculus in the right kidney. The left kidney is normal. The ureters and bladder are normal. No acute bowel abnormality is seen. The stomach is mildly distended with fluid, food and secretions as well as some air. No edema of the stomach is seen. Duodenum is not dilated and the changes may be related to either a large recent meal versus gastroparesis. An obstruction cannot totally be excluded but no mass or edema in the region of the antrum or pylorus is evident. There is no free intraperitoneal air or fluid. IMPRESSION: The stomach is distended with no other acute abnormality evident. Dictated by: Dictated on workstation # [id number] Dict: 06/13/20 1340 Trans: 06/13/20 1408 [facility] [id number] Interpreted by: JAIME OSCAR MD Electronically signed by: JAIME OSCAR MD 06/13/20 1408 Departure Impression Primary Impression: Cystitis without hematuria Additional Impressions: Epigastric abdominal pain Nausea & vomiting Qualified Codes: R11.14 - Bilious vomiting Dehydration Disposition: HOME, SELF-CARE Condition: Stable Departure-Patient Inst. Decision time for Depature: 15:34 Referrals: ANDREW DONAHUE MD (PCP/Family) Primary Care Physician Patient Instructions: Nausea and Vomiting, Adult ED, Gastritis ED, Urinary Tract Infection, Adult ED, Dehydration, Adult ED Add. Discharge Instructions: Try using the other nausea medicine to help settle your stomach. Follow a liquid diet for next 24 to 48 hours. Follow up with clinic if not improving or having more concerns in next few days. Take the full course of antibiotics for urine infection. All discharge instructions reviewed with patient and/or family. Voiced und erstanding. Scripts Metoclopramide HCl (Metoclopramide HCl) 10 Mg Tablet 10 MG PO Q6H PRN for NAUSEA/VOMITING for 3 Days, #12 TAB 0 Refills Prov: MIGUELITO GUZMÁN MD 06/13/20 Cephalexin (Cephalexin) 500 Mg Tablet 500 MG PO TID for UTI for 7 Days, #20 TAB 0 Refills Prov: MIGUELITO GUZMÁN MD 06/13/20 MIGUELITO GUZMÁN MD Jun 13, 2020 13:17
--- NOTE | 2020-06-13 13:47 | Diagnostic Imaging Report ---
PROCEDURE: CT abdomen and pelvis without contrast. TECHNIQUE: Multiple contiguous axial images were obtained through the abdomen and pelvis without the use of intravenous contrast. Auto Exposure Controls were utilized during the CT exam to meet ALARA standards for radiation dose reduction. INDICATION: Epigastric pain with nausea and vomiting for 2 days. The lung bases are clear. Gallbladder is absent. The liver and bile ducts are normal. The spleen, pancreas and adrenals are normal. There is a 4 mm nonobstructing calculus in the right kidney. The left kidney is normal. The ureters and bladder are normal. No acute bowel abnormality is seen. The stomach is mildly distended with fluid, food and secretions as well as some air. No edema of the stomach is seen. Duodenum is not dilated and the changes may be related to either a large recent meal versus gastroparesis. An obstruction cannot totally be excluded but no mass or edema in the region of the antrum or pylorus is evident. There is no free intraperitoneal air or fluid. IMPRESSION: The stomach is distended with no other acute abnormality evident. Dictated by: Dictated on workstation # [id number]
[2020-06-13 15:14] LABS: CLARITY,URINE CLOUDY; COLOR,URINE AMBER; GLUCOSE, URINE (UA) NEGATIVE (NEGATIVE); KETONES,URINE 3+ (NEGATIVE); NITRITE,URINE NEGATIVE (NEGATIVE); PH,URINE 5.5 (5-9); PROTEIN,URINE 2+ (NEGATIVE)
[2020-06-13 15:15] LABS: BACTERIA,URINE LARGE /HPF; BILIRUBIN,URINE 3+ (NEGATIVE); LEUKOCYTE ESTERASE ,URINE 1+ (NEGATIVE); SQUAMOUS EPITHELIAL CELL,UR TNTC /HPF; WBC,URINE 50-100 /HPF
[2020-06-13] MEDS ORDERED: cefTRIAXone FOR IV USE 1,000 MG in WATER (STERILE) FOR INJECTION 10 ML IV STA (15:29)
[2020-06-13] MEDS ORDERED: CEPH500T PO (15:33)
[2020-06-13] MEDS ORDERED: METO10TA3 PO (15:33)
[2020-06-13 15:54] VITALS: BP 120/88
== END 2020-06-13 15:54 | disposition home or self-care (01) ==
LOC: EDUNIT# 11:25 → ER FS 11:26
DX: N30.90 Cystitis, unspecified without hematuria (principal); R10.13 Epigastric pain; R11.2 Nausea with vomiting, unspecified; E86.0 Dehydration; F32.9 Major depressive disorder, single episode, unspecified; F41.9 Anxiety disorder, unspecified; G43.909 Migraine, unspecified, not intractable, without status migrainosus; Z88.8 Allergy status to other drugs, medicaments and biological substances; Z87.891 Personal history of nicotine dependence
CPT/HCPCS: 36415; 74176; 80053; 81000; 83690; 85025; 87088

== ENCOUNTER 2020-06-16 09:42 | Emergency (ER) | payer MEDICARE, MEDICAID ==
[~2020-06-16 09:42] MED LIST changes: +CEPH500T PO; +METO10TA3 PO
--- NOTE | 2020-06-16 09:54 | ED GI ---
General Stated Complaint: N/V Source of Information: Patient, EMS History of Present Illness Date Seen by Provider: Jun 16, 2020 Time Seen by Provider: 09:54 Initial Comments 40-year-old female presents with upper abdominal pain and nausea which began today. Seen in this ER 2 days ago diagnosed with UTI and sent home with Keflex. Review of culture shows no growth. Denies recent fever or illness, cough, upper respiratory symptoms or shortness of air. Allergies and Home Medications Allergies Coded Allergies: zolmitriptan (Verified Adverse Reaction, Unknown, 09/29/19) Home Medications Cephalexin 500 Mg Tablet, 500 MG PO TID Prescribed by: MIGUELITO GUZMÁN on 06/13/20 1533 Cetirizine HCl 10 Mg Tablet, 10 MG PO DAILY, (Reported) Citalopram Hydrobromide 40 Mg Tablet, 40 MG PO DAILY, (Reported) Ferrous Sulfate 325 Mg Tablet, 325 MG PO BID, (Reported) Levothyroxine Sodium 88 Mcg Tablet, 88 MCG PO HS, (Reported) Metoclopramide HCl 10 Mg Tablet, 10 MG PO Q6H PRN for NAUSEA/VOMITING Prescribed by: MIGUELITO GUZMÁN on 06/13/20 153 Montelukast Sodium 10 Mg Tablet, 10 MG PO HS, (Reported) Ondansetron 4 Mg Tab.rapdis, 4 MG PO TID Prescribed by: BILL RAMIREZ on 06/16/20 110 Pantoprazole Sodium 20 Mg Tablet.dr, 20 MG PO BID, (Reported) Potassium Chloride 20 Meq Tablet.er, 20 MEQ PO BID Prescribed by: BILL RAMIREZ on 06/16/20 110 Propranolol HCl 20 Mg Tablet, 20 MG PO BID, (Reported) Sucralfate 1 Gm Tablet, 1 GM PO ACHS, (Reported) Topiramate 100 Mg Tablet, 100 MG PO TID, (Reported) Patient Home Medication List Home Medication List Reviewed: Yes Review of Systems Review of Systems Constitutional: No chills, No dizziness, No fever; malaise; No weakness EENTM: No Symptoms Reported Respiratory: No Symptoms Reported Cardiovascular: No Symptoms Reported Gastrointestinal: See HPI, Abdominal Pain; Denies Constipated, Denies Diarrhea; Nausea; Denies Vomiting Musculoskeletal: No back pain, No joint pain Skin: No change in color, No rash Psychiatric/Neurological: Denies Headache, Denies Numbness, Denies Paresthesia, Denies Seizure Past Suiascv-Spavpo-Zucevn Hx Past Med/Social Hx: Reviewed Nursing Past Med/Soc Hx Patient Social History Type Used: Cigarettes Former Smoker, Quit: October 17, 2017 2nd Hand Smoke Exposure: No Recent Hopitalizations: No Immunizations Up To Date Date of Influenza Vaccine: Mar 04, 2019 Seasonal Allergies Seasonal Allergies: Yes Past Medical History Surgeries: Yes Gallbladder Respiratory: No Cardiac: No Neurological: Yes Headaches /Migraines Genitourinary: No Gastrointestinal: Yes (chronic gastritis) Musculoskeletal: Yes (RLS) Endocrine: No HEENT: No Cancer: No Psychosocial: Yes Depression Integumentary: No Blood Disorders: No Physical Exam Vital Signs Vital Signs - First Documented 06/16/20 09:42 Temp 36.5 Pulse 97 Resp 20 B/P (MAP) 112/74 (87) Pulse Ox 97 O2 Delivery Room Air Capillary Refill : Height/Weight/BMI Height: 5'3.00" Weight: 160lbs. 0oz. 72.806127mo; 27.00 BMI Method:Stated General Appearance: WD/WN, no apparent distress HEENT: PERRL/EOMI, normal ENT inspection Respiratory: chest non-tender, lungs clear, normal breath sounds, no respiratory distress, no accessory muscle use Cardiovascular: regular rate, rhythm, no edema, no JVD Gastrointestinal: soft, no organomegaly; No guarding, No rebound; tenderness (diffuse, non localized, without peritoneal sx) Extremities: normal range of motion, non-tender, normal inspection, no pedal edema, no calf tenderness Back: normal inspection, no CVA tenderness Neurologic/Psychiatric: alert, normal mood/affect Skin: normal color, warm/dry Progress/Results/Core Measures Results/Orders Lab Results Laboratory Tests Test 06/16/20 10:00 Range/Units White Blood Count 12.4 H 4.3-11.0 10^3/uL Red Blood Count 5.40 4.35-5.85 10^6/uL Hemoglobin 14.5 11.5-16.0 G/DL Hematocrit 44 35-52 % Mean Corpuscular Volume 82 80-99 FL Mean Corpuscular Hemoglobin 27 25-34 PG Mean Corpuscular Hemoglobin Concent 33 32-36 G/DL Red Cell Distribution Width 12.1 10.0-14.5 % Platelet Count 464 H 130-400 10^3/uL Mean Platelet Volume 9.6 7.4-10.4 FL Immature Granulocyte % (Auto) 0 % Neutrophils (%) (Auto) 80 H 42-75 % Lymphocytes (%) (Auto) 13 12-44 % Monocytes (%) (Auto) 5 0-12 % Eosinophils (%) (Auto) 1 0-10 % Basophils (%) (Auto) 0 0-10 % Neutrophils # (Auto) 9.9 H 1.8-7.8 X 10^3 Lymphocytes # (Auto) 1.7 1.0-4.0 X 10^3 Monocytes # (Auto) 0.7 0.0-1.0 X 10^3 Eosinophils # (Auto) 0.1 0.0-0.3 10^3/uL Basophils # (Auto) 0.0 0.0-0.1 10^3/uL Immature Granulocyte # (Auto) 0.0 0.0-0.1 10^3/uL Sodium Level 141 135-145 MMOL/L Potassium Level 2.4 *L 3.6-5.0 MMOL/L Chloride Level 94 L 98-107 MMOL/L Carbon Dioxide Level 25 21-32 MMOL/L Anion Gap 22 H 5-14 MMOL/L Blood Urea Nitrogen 25 H 7-18 MG/DL Creatinine 1.14 0.60-1.30 MG/DL Estimat Glomerular Filtration Rate 52 BUN/Creatinine Ratio 22 Glucose Level 126 H 70-105 MG/DL Calcium Level 9.5 8.5-10.1 MG/DL Corrected Calcium 9.4 8.5-10.1 MG/DL Total Bilirubin 0.3 0.1-1.0 MG/DL Aspartate Amino Transf (AST/SGOT) 35 H 5-34 U/L Alanine Aminotransferase (ALT/SGPT) 29 0-55 U/L Alkaline Phosphatase 152 H 40-136 U/L Total Protein 7.2 6.4-8.2 GM/DL Albumin 4.1 3.2-4.5 GM/DL My Orders Orders - CÉSARVENSTBILL MARTINEZ DO Ed Iv/Invasive Line Start (06/16/20 09:55) Comprehensive Metabolic Panel (06/16/20 09:55) Cbc With Automated Diff (06/16/20 09:55) Acute Abd Series (06/16/20 09:55) Ondansetron Oral Dissolve Tab (Zofran (06/16/20 09:55) Potassium Chloride (Tablet) (K Dur Table (06/16/20 11:00) Medications Given in ED Current Medications Medications Dose Ordered Sig/Hernan Route Start Time Stop Time Status Last Admin Dose Admin Potassium Chloride 40 meq ONCE ONCE PO 06/16/20 11:00 06/16/20 11:01 DC 06/16/20 11:09 40 MEQ Vital Signs/I&O 06/16/20 09:42 Temp 36.5 Pulse 97 Resp 20 B/P (MAP) 112/74 (87) Pulse Ox 97 O2 Delivery Room Air Diagnostic Imaging Diagonstic Imaging: Xray Comments COMPARISON: CT from 06/13/2020. Radiographs from 01/20/2019. TECHNIQUE: Frontal view of the chest. Upright and supine frontal views of the abdomen. FINDINGS: There is marked air and fluid distention of the stomach, appears increased since 06/13/2020. No distended loops of small bowel or colon are seen. No large collection of free air is seen. Surgical clips are noted in the right upper quadrant. No acute pulmonary abnormality is seen. IMPRESSION: 1. Marked air and fluid distention of the stomach, increased since 06/13/2020. No bowel distention or free air is seen. Dictated on workstation # [id number] Dict: 06/16/20 1107 Trans: 06/16/20 1114 [facility] [id number] Interpreted by: JOSE MANUEL LOPEZ MD Electronically signed by: Departure Impression Primary Impression: Nausea & vomiting Qualified Codes: R11.2 - Nausea with vomiting, unspecified Additional Impressions: Epigastric abdominal pain Hypokalemia Disposition: HOME, SELF-CARE Condition: Improved Departure-Patient Inst. Decision time for Depature: 10:58 Referrals: SELFANDREW MD (PCP/Family) Primary Care Physician Patient Instructions: CLEAR LIQUID DIET ADULT/CHILD, Hypokalemia (DC), Nausea and Vomiting, Adult (DC) Add. Discharge Instructions: Follow up with your Doctor in 2 days for recheck of your potassium. Follow up in the ER sooner if worse Scripts Potassium Chloride (Potassium Chloride) 20 Meq Tablet.er 20 MEQ PO BID for 7 Days, #14 TAB Prov: BILL RAMIREZ DO 06/16/20 Ondansetron (Ondansetron Odt) 4 Mg Tab.rapdis 4 MG PO TID for Nausea, #12 TAB Prov: BILL RAMIREZ DO 06/16/20 BILL RAMIREZ DO Jun 16, 2020 09:54
[2020-06-16] MEDS ORDERED: ONDANSETRON 4 MG (ZOFRAN) ORAL DISSOLVE TAB PO STA (09:55)
[2020-06-16] MEDS ORDERED: SUCR1TAB PO (10:14)
[2020-06-16 10:19] LABS: WHITE BLOOD COUNT 12.4 10^3/uL (4.3-11.0)
[2020-06-16 10:20] LABS: BASOPHILS % (AUTO) 0 % (0-10); EOSINOPHILS # (AUTO) 0.1 10^3/uL (0.0-0.3); EOSINOPHILS % (AUTO) 1 % (0-10); HEMATOCRIT 44 % (35-52); HEMOGLOBIN 14.5 G/DL (11.5-16.0); LYMPHOCYTES # (AUTO) 1.7 X 10^3 (1.0-4.0); LYMPHOCYTES % (AUTO) 13 % (12-44); MEAN CORPUSCULAR HEMOGLOBIN 27 PG (25-34); MEAN CORPUSCULAR HGB CONC 33 G/DL (32-36); MEAN CORPUSCULAR VOLUME 82 FL (80-99); MEAN PLATELET VOLUME 9.6 FL (7.4-10.4); MONOCYTES # (AUTO) 0.7 X 10^3 (0.0-1.0); MONOCYTES % (AUTO) 5 % (0-12); NEUTROPHILS # (AUTO) 9.9 X 10^3 (1.8-7.8); NEUTROPHILS % (AUTO) 80 % (42-75); PLATELET COUNT 464 10^3/uL (130-400)
[2020-06-16 10:42] LABS: ALBUMIN 4.1 GM/DL (3.2-4.5); BILIRUBIN,TOTAL 0.3 MG/DL (0.1-1.0); CALCIUM 9.5 MG/DL (8.5-10.1); CREATININE SERUM 1.14 MG/DL (0.60-1.30); POTASSIUM 2.4 MMOL/L (3.6-5.0); TOTAL PROTEIN 7.2 GM/DL (6.4-8.2)
[2020-06-16] MEDS ORDERED: KCL 20 MEQ TAB (K-DUR) PO ONE (11:00)
[2020-06-16] MEDS ORDERED: POTA-51 PO (11:01)
[2020-06-16] MEDS ORDERED: ONDA4TAB11 PO (11:01)
--- NOTE | 2020-06-16 11:15 | Diagnostic Imaging Report ---
HISTORY: Nausea and vomiting and epigastric pain. COMPARISON: CT from 06/13/2020. Radiographs from 01/20/2019. TECHNIQUE: Frontal view of the chest. Upright and supine frontal views of the abdomen. FINDINGS: There is marked air and fluid distention of the stomach, appears increased since 06/13/2020. No distended loops of small bowel or colon are seen. No large collection of free air is seen. Surgical clips are noted in the right upper quadrant. No acute pulmonary abnormality is seen. IMPRESSION: 1. Marked air and fluid distention of the stomach, increased since 06/13/2020. No bowel distention or free air is seen. Dictated by: Dictated on workstation # [id number]
[2020-06-16 11:29] VITALS: BP 117/64
== END 2020-06-16 11:26 | disposition home or self-care (01) ==
LOC: EDUNIT# 09:42 → ER FS 09:43
DX: R11.2 Nausea with vomiting, unspecified (principal); R10.84 Generalized abdominal pain; E87.6 Hypokalemia; F32.9 Major depressive disorder, single episode, unspecified; Z88.8 Allergy status to other drugs, medicaments and biological substances; Z87.891 Personal history of nicotine dependence
CPT/HCPCS: 36415; 74022; 80053; 85025

== ENCOUNTER 2020-06-26 12:03 | Emergency (ER) | payer MEDICARE, MEDICAID ==
[~2020-06-26] VITALS: Ht 160 cm; Wt 78.9 kg
[~2020-06-26 12:03] MED LIST changes: +ONDA4TAB11 PO; +POTA-51 PO; +SUCR1TAB PO
--- NOTE | 2020-06-26 12:26 | ED GI ---
General Chief Complaint: Abdominal/GI Problems Stated Complaint: VOMITING/DIARRHEA X 4 WKS Source of Information: Patient Exam Limitations: No Limitations History of Present Illness Date Seen by Provider: Jun 26, 2020 Time Seen by Provider: 12:20 Initial Comments To ER by private vehicle with reports of vomiting diarrhea for 4 weeks. She has been seen at emergency room [place] twice for this most recently with a CT on 06/13/2020 followed by an abdominal x-ray on 06/16. During that visit on the she was prescribed Reglan to go home with due to possible gastroparesis. She was also known to have an EGD with pyloric stricture dilatation by Dr. Roger and was instructed to have return EGD in a few months but I do not see where that follow-up has been done. Timing/Duration: Other Severity/Quality: Moderate Location: Epigastric Radiation: No Radiation Activities at Onset: None Allergies and Home Medications Allergies Coded Allergies: zolmitriptan (Verified Adverse Reaction, Unknown, 09/29/19) Home Medications Cephalexin 500 Mg Tablet, 500 MG PO TID Prescribed by: MIGUELITO GUZMÁN on 06/13/20 1533 Cetirizine HCl 10 Mg Tablet, 10 MG PO DAILY, (Reported) Citalopram Hydrobromide 40 Mg Tablet, 40 MG PO DAILY, (Reported) Ferrous Sulfate 325 Mg Tablet, 325 MG PO BID, (Reported) Levothyroxine Sodium 88 Mcg Tablet, 88 MCG PO HS, (Reported) Metoclopramide HCl 10 Mg Tablet, 10 MG PO Q6H PRN for NAUSEA/VOMITING Prescribed by: MIGUELITO GUZMÁN on 06/13/20 1533 Montelukast Sodium 10 Mg Tablet, 10 MG PO HS, (Reported) Ondansetron 4 Mg Tab.rapdis, 4 MG PO TID Prescribed by: BILL RAMIREZ on 06/16/20 110 Pantoprazole Sodium 20 Mg Tablet.dr, 20 MG PO BID, (Reported) Potassium Chloride 20 Meq Tablet.er, 20 MEQ PO BID Prescribed by: BILL RAMIREZ on 06/16/20 110 Propranolol HCl 20 Mg Tablet, 20 MG PO BID, (Reported) Sucralfate 1 Gm Tablet, 1 GM PO ACHS, (Reported) Topiramate 100 Mg Tablet, 100 MG PO TID, (Reported) Patient Home Medication List Home Medication List Reviewed: Yes Review of Systems Review of Systems Constitutional: see HPI EENTM: No Symptoms Reported Respiratory: No Symptoms Reported Cardiovascular: No Symptoms Reported Gastrointestinal: See HPI, Abdominal Pain, Diarrhea, Nausea Genitourinary: No Symptoms Reported Musculoskeletal: no symptoms reported Skin: no symptoms reported Psychiatric/Neurological: No Symptoms Reported Endocrine: No Symptoms Reported Hematologic/Lymphatic: No Symptoms Reported Past Olreeos-Rfsiuh-Auvoqi Hx Patient Social History Type Used: Cigarettes Former Smoker, Quit: October 17, 2017 2nd Hand Smoke Exposure: No Recent Hopitalizations: No Immunizations Up To Date Date of Influenza Vaccine: Mar 04, 2019 Seasonal Allergies Seasonal Allergies: Yes Past Medical History Surgeries: Yes Gallbladder Respiratory: No Cardiac: No Neurological: Yes Headaches /Migraines Genitourinary: No Gastrointestinal: Yes (chronic gastritis) Musculoskeletal: Yes (RLS) Endocrine: No HEENT: No Cancer: No Psychosocial: Yes Depression Integumentary: No Blood Disorders: No Physical Exam Vital Signs Vital Signs - First Documented 06/26/20 12:06 Temp 35.8 Pulse 93 Resp 16 B/P (MAP) 106/87 (93) Pulse Ox 98 O2 Delivery Room Air Capillary Refill : Height/Weight/BMI Height: 5'3.00" Weight: 160lbs. 0oz. 72.184331ny; 27.00 BMI Method:Stated General Appearance: WD/WN, no apparent distress HEENT: PERRL/EOMI, normal ENT inspection Respiratory: no respiratory distress, no accessory muscle use Cardiovascular: tachycardia (Rate of 105) Gastrointestinal: normal bowel sounds, non tender, soft Extremities: normal range of motion, non-tender Neurologic/Psychiatric: alert, normal mood/affect, oriented x 3 Skin: normal color, warm/dry Progress/Results/Core Measures Results/Orders Lab Results Laboratory Tests Test 06/26/20 12:15 Range/Units White Blood Count 11.4 H 4.3-11.0 10^3/uL Red Blood Count 5.75 H 3.80-5.11 10^6/uL Hemoglobin 15.5 11.5-16.0 g/dL Hematocrit 48 35-52 % Mean Corpuscular Volume 83 80-99 fL Mean Corpuscular Hemoglobin 27 25-34 pg Mean Corpuscular Hemoglobin Concent 33 32-36 g/dL Red Cell Distribution Width 11.9 10.0-14.5 % Platelet Count 554 H 130-400 10^3/uL Mean Platelet Volume 9.8 9.0-12.2 fL Immature Granulocyte % (Auto) 0 % Neutrophils (%) (Auto) 61 42-75 % Lymphocytes (%) (Auto) 29 12-44 % Monocytes (%) (Auto) 8 0-12 % Eosinophils (%) (Auto) 2 0-10 % Basophils (%) (Auto) 0 0-10 % Neutrophils # (Auto) 7.0 1.8-7.8 10^3/uL Lymphocytes # (Auto) 3.3 1.0-4.0 10^3/uL Monocytes # (Auto) 0.9 0.0-1.0 10^3/uL Eosinophils # (Auto) 0.2 0.0-0.3 10^3/uL Basophils # (Auto) 0.0 0.0-0.1 10^3/uL Immature Granulocyte # (Auto) 0.1 0.0-0.1 10^3/uL Sodium Level 136 135-145 MMOL/L Potassium Level 3.0 L 3.6-5.0 MMOL/L Chloride Level 87 L 98-107 MMOL/L Carbon Dioxide Level 30 21-32 MMOL/L Anion Gap 19 H 5-14 MMOL/L Blood Urea Nitrogen 25 H 7-18 MG/DL Creatinine 1.47 H 0.60-1.30 MG/DL Estimat Glomerular Filtration Rate 39 BUN/Creatinine Ratio 17 Glucose Level 131 H 70-105 MG/DL Calcium Level 9.8 8.5-10.1 MG/DL Corrected Calcium 9.7 8.5-10.1 MG/DL Total Bilirubin 0.5 0.1-1.0 MG/DL Aspartate Amino Transf (AST/SGOT) 71 H 5-34 U/L Alanine Aminotransferase (ALT/SGPT) 83 H 0-55 U/L Alkaline Phosphatase 139 H 40-136 U/L Total Protein 7.7 6.4-8.2 GM/DL Albumin 4.1 3.2-4.5 GM/DL Lipase 55 8-78 U/L My Orders Orders - [employer] ADMIN[employer]ATOR Cbc With Automated Diff (06/26/20 12:19) Comprehensive Metabolic Panel (06/26/20 12:19) Lipase (06/26/20 12:19) Ua Culture If Indicated (06/26/20 12:19) Ed Iv/Invasive Line Start (06/26/20 12:19) Acute Abd Series (06/26/20 12:19) Lactated Ringers (Lr 1000 Ml Iv Solution (06/26/20 12:30) Ondansetron Injection (Zofran Injectio (06/26/20 12:30) Dexamethasone Injection (Decadron Inje (06/26/20 13:15) Promethazine Injection (Phenergan Injec (06/26/20 13:15) Medications Given in ED Current Medications Medications Dose Ordered Sig/Hernan Route Start Time Stop Time Status Last Admin Dose Admin Dexamethasone Sodium Phosphate 4 mg ONCE ONCE IV 06/26/20 13:15 06/26/20 13:16 DC 06/26/20 13:12 4 MG Ondansetron HCl 8 mg ONCE ONCE IVP 06/26/20 12:30 06/26/20 12:31 DC 06/26/20 12:29 8 MG Promethazine HCl 12.5 mg ONCE ONCE IVP 06/26/20 13:15 06/26/20 13:16 DC 06/26/20 13:12 12.5 MG Vital Signs/I&O 06/26/20 12:06 Temp 35.8 Pulse 93 Resp 16 B/P (MAP) 106/87 (93) Pulse Ox 98 O2 Delivery Room Air Departure Communication (Admissions) 1306-Plain films showed a large dilated stomach. Offered her an NG tube to decompress and she would like to go ahead and do that. After Hurricaine spray into the right nostril I placed a 16 Danish nasogastric tube. We aspirated about 500 mL of brownish fluid out and she vomited an additional 500 mL of fluid out with subsequent resolution of nausea and epigastric pain. She does have an acute kidney injury on labs, she is receiving 1 L of LR at this time. 1345-she has follow-up with Dr. Roger on July 07. She is feeling quite a bit better at this time. Nasogastric tube removed. Discussed with her the importance of small meals. I will have her call Dr. Roger's office on Sunday to hopefully move her appointment up a bit sooner than the third given the severity of her symptoms. Impression Primary Impression: Nausea and vomiting Additional Impressions: History of pyloric stricture Gastric distention Disposition: HOME, SELF-CARE Condition: Stable Departure-Patient Inst. Decision time for Depature: 12:23 Referrals: JOSE ROGER MAXWELL MD (PCP/Family) Primary Care Physician Patient Instructions: No Instuctions Given Add. Discharge Instructions: . Instead of 3 large meals a day you need to have several very small meals throughout the day. You need to follow-up with Dr. Roger for repeat endoscopy of the stomach. Call his office Sunday to make an appointment to be seen return to ER for any worsening. All discharge instructions reviewed with patient and/or family. Voiced understanding. Scripts Promethazine HCl (Promethazine Tablet) 25 Mg Tablet 0.5 TAB PO Q8H PRN for NAUSEA/VOMITING, #10 TAB Prov: WAGNER WADE APRN 06/26/20 Copy Copies To 1: JOSE ROGER DO; ANDREW DONAHUE MD, PETER J APRN Jun 26, 2020 12:26
[2020-06-26] MEDS ORDERED: ONDANSETRON 4 MG/2 ML (SDV) Z0FRAN IVP ONE (12:30)
[2020-06-26] MEDS ORDERED: LACTATED RINGERS 1,000 ML IV SCH (12:30)
[2020-06-26 12:35] LABS: BASOPHILS % (AUTO) 0 % (0-10); EOSINOPHILS # (AUTO) 0.2 10^3/uL (0.0-0.3); EOSINOPHILS % (AUTO) 2 % (0-10); HEMATOCRIT 48 % (35-52); HEMOGLOBIN 15.5 g/dL (11.5-16.0); LYMPHOCYTES # (AUTO) 3.3 10^3/uL (1.0-4.0); LYMPHOCYTES % (AUTO) 29 % (12-44); MEAN CORPUSCULAR HEMOGLOBIN 27 pg (25-34); MEAN CORPUSCULAR HGB CONC 33 g/dL (32-36); MEAN CORPUSCULAR VOLUME 83 fL (80-99); MEAN PLATELET VOLUME 9.8 fL (9.0-12.2); MONOCYTES # (AUTO) 0.9 10^3/uL (0.0-1.0); MONOCYTES % (AUTO) 8 % (0-12); NEUTROPHILS % (AUTO) 61 % (42-75); PLATELET COUNT 554 10^3/uL (130-400); WHITE BLOOD COUNT 11.4 10^3/uL (4.3-11.0)
[2020-06-26 12:39] LABS: ALBUMIN 4.1 GM/DL (3.2-4.5)
[2020-06-26 12:41] LABS: CALCIUM 9.8 MG/DL (8.5-10.1)
[2020-06-26 12:42] LABS: TOTAL PROTEIN 7.7 GM/DL (6.4-8.2)
[2020-06-26 12:44] LABS: BILIRUBIN,TOTAL 0.5 MG/DL (0.1-1.0)
[2020-06-26 12:46] LABS: CREATININE SERUM 1.47 MG/DL (0.60-1.30)
--- NOTE | 2020-06-26 12:57 | Diagnostic Imaging Report ---
INDICATION: Nausea and vomiting. FINDINGS: Heart size is normal. Lungs are clear. No pleural effusion or pneumothorax. Mediastinum is unremarkable. Bowel gas pattern is nonspecific. There are surgical clips in the right upper quadrant. There is no free air. There is a well-circumscribed ovoid density in left upper quadrant likely within the bowel. There are no other abnormal calcifications. IMPRESSION: No acute cardiopulmonary abnormality. Nonspecific bowel gas pattern. Ovoid radiodensity in left upper quadrant likely something ingested within the stomach or bowel. Dictated by: Dictated on workstation # [id number]
[2020-06-26] MEDS ORDERED: PROMETHAZINE INJ 25 MG/ML (PHENERGAN) AMP IVP ONE (13:15)
--- NOTE | 2020-06-26 13:24 | NUR ---
NG tube placed by Sathya Louie NP with assistance from RN. Pt has 400 ML brown content from the NG tube and vomites approximately 600 ML. NG tubed removed by sathya Louie NP.
--- NOTE | 2020-06-26 13:42 | NUR ---
Patient states nausea is better.
[2020-06-26] MEDS ORDERED: PROM25TA14 PO (13:47)
[2020-06-26 14:14] VITALS: BP 103/82
== END 2020-06-26 14:14 | disposition home or self-care (01) ==
LOC: EDUNIT# 12:03 → ER 12:04
DX: R11.2 Nausea with vomiting, unspecified (principal); K31.89 Other diseases of stomach and duodenum; F32.9 Major depressive disorder, single episode, unspecified; Z87.891 Personal history of nicotine dependence; Z88.8 Allergy status to other drugs, medicaments and biological substances
CPT/HCPCS: 36415; 74022; 80053; 83690; 85025

== ENCOUNTER 2020-06-30 10:08 | Inpatient (IN) | payer MEDICARE, MEDICAID ==
[~2020-06-30] VITALS: Ht 160 cm; Wt 87.5 kg
[~2020-06-30 10:08] MED LIST changes: +PROM25TA14 PO
[2020-06-30] MEDS ORDERED: METOCLOPRAMIDE INJ 10 MG/2 ML (REGLAN) IVP STA (10:48)
[2020-06-30] MEDS ORDERED: NS IV 1000 ML 1,000 ML IV STA ×2 (10:48→11:57)
--- NOTE | 2020-06-30 11:04 | ED GI ---
General Chief Complaint: Abdominal/GI Problems Stated Complaint: N/V Source of Information: Patient, Old Records History of Present Illness Date Seen by Provider: Jun 30, 2020 Time Seen by Provider: 10:16 Initial Comments 40-year-old female presenting with chronic issues of nausea and vomiting and epigastric pain. She has a history of pyloric stenosis that Dr. Mukherjee is scheduled to do a dilating procedure. She was seen in the emergency department at [facility] on June 26. At that time she had a dilated stomach that improved with nasogastric tube placement. Her labs had appeared stable. She was discharged with instructions to follow-up with Dr. Verdin. She states that she saw Dr. Mukherjee on June 29 and he has moved up her dilating procedure to July 05. However she was feeling so weak and continued to vomit despite medications that she came to the emergency department today. She denies any fever or chills. She states that she has been having loose stools in the last 3 days. She reports telling Dr. Mukherjee about the nausea medication not controlling her vomiting and that she was so weak she felt like she was going to pass out but she still has not been able to get her appointment moved up until Sunday. Timing/Duration: Constant (Chronic) Severity/Quality: Aching Location: Epigastric Radiation: No Radiation Activities at Onset: None Associated Symptoms: No Back Pain, No Chest Pain, No Diaphoresis, No Fever/Chills; Fatigue; No Headache; Heartburn, Nausea/Vomiting; No Rash, No Shortness of Air, No Swelling/Mass in Abdomen, No Syncope; Weakness (Generalized) Allergies and Home Medications Allergies Coded Allergies: zolmitriptan (Verified Adverse Reaction, Unknown, 09/29/19) Home Medications Cephalexin 500 Mg Tablet, 500 MG PO TID Prescribed by: MIGUELITO GUZMÁN on 06/13/20 153 Cetirizine HCl 10 Mg Tablet, 10 MG PO DAILY, (Reported) Citalopram Hydrobromide 40 Mg Tablet, 40 MG PO DAILY, (Reported) Ferrous Sulfate 325 Mg Tablet, 325 MG PO BID, (Reported) Levothyroxine Sodium 88 Mcg Tablet, 88 MCG PO HS, (Reported) Metoclopramide HCl 10 Mg Tablet, 10 MG PO Q6H PRN for NAUSEA/VOMITING Prescribed by: MIGUELITO GUZMÁN on 06/13/20 1533 Montelukast Sodium 10 Mg Tablet, 10 MG PO HS, (Reported) Ondansetron 4 Mg Tab.rapdis, 4 MG PO TID Prescribed by: BILL RAMIREZ on 06/16/20 1101 Pantoprazole Sodium 20 Mg Tablet.dr, 20 MG PO BID, (Reported) Potassium Chloride 20 Meq Tablet.er, 20 MEQ PO BID Prescribed by: BILL RAMIREZ on 06/16/20 1101 Promethazine HCl 25 Mg Tablet, 0.5 TAB PO Q8H PRN for NAUSEA/VOMITING Prescribed by: WAGNER WADE on 06/26/20 1347 Propranolol HCl 20 Mg Tablet, 20 MG PO BID, (Reported) Sucralfate 1 Gm Tablet, 1 GM PO ACHS, (Reported) Topiramate 100 Mg Tablet, 100 MG PO TID, (Reported) Patient Home Medication List Home Medication List Reviewed: Yes Review of Systems Review of Systems Constitutional: No chills, No fever; malaise, weakness (General) EENTM: No Symptoms Reported Respiratory: No Symptoms Reported Cardiovascular: No Symptoms Reported Gastrointestinal: See HPI Genitourinary: No Symptoms Reported Musculoskeletal: no symptoms reported Skin: no symptoms reported Psychiatric/Neurological: Anxiety Past Uedgjnj-Bwwsro-Frevii Hx Past Med/Social Hx: Reviewed Nursing Past Med/Soc Hx Patient Social History Type Used: Cigarettes Former Smoker, Quit: October 17, 2017 2nd Hand Smoke Exposure: No Recent Hopitalizations: No Immunizations Up To Date Date of Influenza Vaccine: Mar 13, 2020 Seasonal Allergies Seasonal Allergies: Yes Past Medical History Surgeries: Yes Gallbladder Respiratory: No Cardiac: No Neurological: Yes Headaches /Migraines Genitourinary: No Gastrointestinal: Yes (chronic gastritis) Musculoskeletal: Yes (RLS) Endocrine: No HEENT: No Cancer: No Psychosocial: Yes Depression Integumentary: No Blood Disorders: No Physical Exam Vital Signs Vital Signs - First Documented 06/30/20 10:45 Temp 36.5 Pulse 98 Resp 16 B/P (MAP) 122/85 (97) Pulse Ox 97 O2 Delivery Room Air Capillary Refill : Height/Weight/BMI Height: 5'3.00" Weight: 160lbs. 0oz. 72.332243ph; 30.00 BMI Method:Stated General Appearance: no apparent distress, other (Disheveled and poor hygiene) HEENT: PERRL/EOMI, pharynx normal Neck: non-tender, full range of motion, supple, normal inspection Respiratory: chest non-tender, lungs clear, normal breath sounds, no res piratory distress, no accessory muscle use Cardiovascular: normal peripheral pulses, regular rate, rhythm Gastrointestinal: normal bowel sounds, soft, no pulsatile mass; No guarding, No rebound; tenderness (Mild epigastric tenderness to palpation) Rectal: deferred Extremities: normal range of motion, normal capillary refill 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, alert, oriented x 3 Skin: warm/dry Images 1 - Mild epigastric tenderness to palpation Progress/Results/Core Measures Results/Orders Lab Results Laboratory Tests Test 06/30/20 10:45 06/30/20 10:52 Range/Units Urine Color YELLOW Urine Clarity CLOUDY H Urine pH 8.5 5-9 Urine Specific [place] 1.015 L 1.016-1.022 Urine Protein 1+ H NEGATIVE Urine Glucose (UA) NEGATIVE NEGATIVE Urine Ketones 2+ H NEGATIVE Urine Nitrite NEGATIVE NEGATIVE Urine Bilirubin 3+ H NEGATIVE Urine Urobilinogen 0.2 < = 1.0 MG/DL Urine Leukocyte Esterase 1+ H NEGATIVE Urine RBC (Auto) 1+ H NEGATIVE Urine RBC 50-100 H /HPF Urine WBC 5-10 H /HPF Urine Squamous Epithelial Cells 25-50 H /HPF Urine Crystals NONE /LPF Urine Bacteria LARGE H /HPF Urine Casts PRESENT /LPF Urine Hyaline Casts 10-25 H /LPF Urine Mucus MODERATE H /LPF Urine Culture Indicated YES White Blood Count 14.7 H 4.3-11.0 10^3/uL Red Blood Count 6.22 H 4.35-5.85 10^6/uL Hemoglobin 16.8 H 11.5-16.0 G/DL Hematocrit 50 35-52 % Mean Corpuscular Volume 80 80-99 FL Mean Corpuscular Hemoglobin 27 25-34 PG Mean Corpuscular Hemoglobin Concent 34 32-36 G/DL Red Cell Distribution Width 12.1 10.0-14.5 % Platelet Count 549 H 130-400 10^3/uL Mean Platelet Volume 9.7 7.4-10.4 FL Immature Granulocyte % (Auto) 0 % Neutrophils (%) (Auto) 77 H 42-75 % Lymphocytes (%) (Auto) 16 12-44 % Monocytes (%) (Auto) 6 0-12 % Eosinophils (%) (Auto) 1 0-10 % Basophils (%) (Auto) 0 0-10 % Neutrophils # (Auto) 11.3 H 1.8-7.8 X 10^3 Lymphocytes # (Auto) 2.4 1.0-4.0 X 10^3 Monocytes # (Auto) 0.8 0.0-1.0 X 10^3 Eosinophils # (Auto) 0.1 0.0-0.3 10^3/uL Basophils # (Auto) 0.0 0.0-0.1 10^3/uL Immature Granulocyte # (Auto) 0.1 0.0-0.1 10^3/uL Neutrophils % (Manual) 72 % Lymphocytes % (Manual) 14 % Monocytes % (Manual) 8 % Eosinophils % (Manual) 2 % Basophils % (Manual) 0 % Band Neutrophils 4 % Microcytosis 1+ Sodium Level 131 L 135-145 MMOL/L Potassium Level 2.9 L 3.6-5.0 MMOL/L Chloride Level 78 L 98-107 MMOL/L Carbon Dioxide Level 34 H 21-32 MMOL/L Anion Gap 19 H 5-14 MMOL/L Blood Urea Nitrogen 32 H 7-18 MG/DL Creatinine 1.63 H 0.60-1.30 MG/DL Estimat Glomerular Filtration Rate 35 BUN/Creatinine Ratio 20 Glucose Level 160 H 70-105 MG/DL Calcium Level 10.2 H 8.5-10.1 MG/DL Corrected Calcium 8.5-10.1 MG/DL Total Bilirubin 0.7 0.1-1.0 MG/DL Aspartate Amino Transf (AST/SGOT) 44 H 5-34 U/L Alanine Aminotransferase (ALT/SGPT) 57 H 0-55 U/L Alkaline Phosphatase 166 H 40-136 U/L Total Protein 8.1 6.4-8.2 GM/DL Albumin 4.6 H 3.2-4.5 GM/DL Lipase 41 8-78 U/L My Orders Orders - MIGUELITO GUZMÁN MD Comprehensive Metabolic Panel (06/30/20 10:48) Lipase (06/30/20 10:48) Ua Culture If Indicated (06/30/20 10:48) Acute Abd Series (06/30/20 10:48) Cbc With Automated Diff (06/30/20 10:48) Urine Bedside (06/30/20 10:48) Ns Iv 1000 Ml (Sodium Chloride 0.9%) (06/30/20 10:48) Metoclopramide Injection (Reglan Injecti (06/30/20 10:48) Urine Culture (06/30/20 10:45) Manual Differential (06/30/20 10:52) Ceftriaxone For Iv Use (Rocephin For I (06/30/20 11:47) Ns Iv 1000 Ml (Sodium Chloride 0.9%) (06/30/20 11:57) Lorazepam Injection (Ativan Injection) (06/30/20 12:41) Vital Signs/I&O 06/30/20 10:45 Temp 36.5 Pulse 98 Resp 16 B/P (MAP) 122/85 (97) Pulse Ox 97 O2 Delivery Room Air Progress Progress Note #1: Progress Note Obtain labs and urinalysis as well as an acute abdomen series. Try giving IV fluids for hydration, Reglan for nausea and vomiting. Progress Note #2: Time: 11:38 Progress Note No acute abnormality on her acute abdomen series. Her urinalysis does show ketones and leukocyte esterase with bacteria. She does also have 10-25 epithelial cells so some of this may be skin contamination. Her CBC has an elevated white blood cell count of 14.7 and hemoglobin is 16.8 which is a little higher than she was 3 days ago. This would go along with some hemoconcentration and dehydration. Her chemistry shows continued hypokalemia with a potassium of 2.9. Her CO2 has gone up to 34. Her BUN is 32 with a creatinine of 1.63 which is up from the 1.4 and was on the 23rd. Her AST, ALT and Alk phos are all slightly elevated. d/w Dr. Mukherjee at 1144 and he was agreeable to seeing her in consult or in clinic depending on if she can go home or if she has to be admitted. Will try a 2nd bag of fluids and try oral challenge with water and give Rocephin for UTI. If not tolerating po then will check with Dr. Fowler from [facility] about observation with consult to Dr. Mukherjee Progress Note #3: Time: 12:[address] Fowler was agreeable to observation for continued fluids, try to improve her hydration and kidney function and see if can tolerate PO fluids. Consult with Dr. Mukherjee and if he chooses to move up her EGD with dilation of pyloric stricture. Pt was having more retching and dry heaving after being told about admit so given 1 mg of Ativan to try and help with anxiety and nausea. She seemed to calm down while waiting on EMS for transport Diagnostic Imaging Diagonstic Imaging: Xray Plain Films/CT/US/NM/MRI: abdomen Comments NAME: MITCH ECHOLS MED REC#: [id number] PT STATUS: REG ER : 1980 PHYSICIAN: MIGUELITO GUZMÁN MD ADMIT DATE: 06/30/20/ER FS Draft Date of Exam:06/30/20 ACUTE ABD SERIES INDICATION: Abdominal pain, nausea, and vomiting. COMPARISON: 06/26/2020. FINDINGS: The lungs are clear. There is no failure, effusion, or pneumothorax. The bowel gas pattern is normal. Air to the rectal vault is present. No abnormal fecal loading. No free air beneath the diaphragms. IMPRESSION: No acute appearing abnormality. Dictated on workstation # [id number] Dict: 06/30/20 1119 Trans: 06/30/20 1129 [id number] Interpreted by: JEN ASIF Electronically signed by: Departure Communication (Admissions) Time/Spoke to Admitting Phy: 12:24 D/w Dr. Fowler for [facility] and will admit as observation for continued hydration, anti-emetics, PPI and consult Dr. Mukherjee from surgery. Time/Spoke to Consulting Phy: 11:44 D/w Dr. Mukherjee and will try to hydrate and treat UTI and see if can tolerate po so can discharge home. If she is not able to be discharged to home he would be happy to see her in consult, otherwise he could follow up with clinic Impression Primary Impression: Intractable nausea and vomiting Additional Impressions: Acute renal insufficiency Dehydration Acquired pyloric stricture Chronic gastritis without bleeding Qualified Codes: K29.50 - Unspecified chronic gastritis without bleeding Cystitis without hematuria Disposition: 30 STILL A PATIENT Condition: Stable Admissions Decision to Admit Reason: Admit from ER (General) Decision to Admit/Date: Jun 30, 2020 Time/Decision to Admit Time: 12:24 Departure-Patient Inst. Referrals: SELF,ANDREW BOLIVAR (PCP/Family) Primary Care Physician MIGUELITO GUZMÁN MD Jun 30, 2020 11:04
[2020-06-30 11:09] LABS: CLARITY,URINE CLOUDY; COLOR,URINE YELLOW; GLUCOSE, URINE (UA) NEGATIVE (NEGATIVE); KETONES,URINE 2+ (NEGATIVE); NITRITE,URINE NEGATIVE (NEGATIVE); PH,URINE 8.5 (5-9); PROTEIN,URINE 1+ (NEGATIVE)
[2020-06-30 11:10] LABS: BACTERIA,URINE LARGE /HPF; BILIRUBIN,URINE 3+ (NEGATIVE); LEUKOCYTE ESTERASE ,URINE 1+ (NEGATIVE); RBC,URINE 50-100 /HPF; SQUAMOUS EPITHELIAL CELL,UR 25-50 /HPF
[2020-06-30 11:17] LABS: HEMATOCRIT 50 % (35-52); HEMOGLOBIN 16.8 G/DL (11.5-16.0); MEAN CORPUSCULAR HEMOGLOBIN 27 PG (25-34); WHITE BLOOD COUNT 14.7 10^3/uL (4.3-11.0)
[2020-06-30 11:18] LABS: BASOPHILS % (AUTO) 0 % (0-10); EOSINOPHILS # (AUTO) 0.1 10^3/uL (0.0-0.3); EOSINOPHILS % (AUTO) 1 % (0-10); LYMPHOCYTES # (AUTO) 2.4 X 10^3 (1.0-4.0); LYMPHOCYTES % (AUTO) 16 % (12-44); MEAN CORPUSCULAR HGB CONC 34 G/DL (32-36); MEAN CORPUSCULAR VOLUME 80 FL (80-99); MEAN PLATELET VOLUME 9.7 FL (7.4-10.4); MONOCYTES # (AUTO) 0.8 X 10^3 (0.0-1.0); MONOCYTES % (AUTO) 6 % (0-12); NEUTROPHILS # (AUTO) 11.3 X 10^3 (1.8-7.8); NEUTROPHILS % (AUTO) 77 % (42-75); PLATELET COUNT 549 10^3/uL (130-400)
--- NOTE | 2020-06-30 11:29 | Diagnostic Imaging Report ---
INDICATION: Abdominal pain, nausea, and vomiting. COMPARISON: 06/26/2020. FINDINGS: The lungs are clear. There is no failure, effusion, or pneumothorax. The bowel gas pattern is normal. Air to the rectal vault is present. No abnormal fecal loading. No free air beneath the diaphragms. IMPRESSION: No acute appearing abnormality. Dictated by: Dictated on workstation # [id number]
[2020-06-30 11:34] LABS: ALANINE AMINOTRANSFERASE 57 U/L (0-55); ALBUMIN 4.6 GM/DL (3.2-4.5); ALKALINE PHOSPHATASE 166 U/L (40-136); BILIRUBIN,TOTAL 0.7 MG/DL (0.1-1.0); BUN/CREATININE RATIO 20; CALCIUM 10.2 MG/DL (8.5-10.1); CARBON DIOXIDE 34 MMOL/L (21-32); CHLORIDE 78 MMOL/L (98-107); CREATININE SERUM 1.63 MG/DL (0.60-1.30); GFR ESTIMATED 35; GLUCOSE 160 MG/DL (70-105); LIPASE 41 U/L (8-78); POTASSIUM 2.9 MMOL/L (3.6-5.0); SODIUM 131 MMOL/L (135-145); TOTAL PROTEIN 8.1 GM/DL (6.4-8.2)
[2020-06-30 11:46] LABS: BAND NEUTROPHILS 4 %; BASOPHILS % (MANUAL) 0 %; EOSINOPHILS % (MANUAL) 2 %; LYMPHOCYTES % (MANUAL) 14 %; MONOCYTES % (MANUAL) 8 %; NEUTROPHILS % (MANUAL) 72 %
[2020-06-30 11:47] LABS: MICROCYTOSIS 1+
[2020-06-30] MEDS ORDERED: cefTRIAXone FOR IV USE 1,000 MG in WATER (STERILE) FOR INJECTION 10 ML IV STA (11:47)
--- NOTE | 2020-06-30 11:55 | NUR ---
Dr Nguyen to room with nurse, reviewed her work up and his conversation with Dr Mukherjee. Plan: Attempt to re-hydrate and get patient to tolerate p.o. so discharge can be done for her follow up with Dr Mukherjee for Sunday planned procedure. May see Dr Mukherjee in office again or Sun for follow up in [place].
--- NOTE | 2020-06-30 12:05 | NUR ---
Pt preferred to drink a bottled water she brought and began it after Dr left room. Pt began making deep belch sounds then forced gag sound, pt now is retching without emesis. The emesis bag taken from pt and measurable amt of spit appearing fluid 12 ml. Pt states, "Go tell Dr that I vomited all my water up and not tolerating drinking."
--- NOTE | 2020-06-30 12:40 | NUR ---
Attempt to call Trey Gutierrez on patient request but no answer. Voicemail message left of plan to admit.
[2020-06-30] MEDS ORDERED: LORazepam INJ 2 MG/ML (ATIVAN) VIAL IVP STA (12:41)
--- NOTE | 2020-06-30 13:00 | NUR ---
EMS contacted by Danii SHELLEY. Report the EMS is still not back from previous transfer.
--- NOTE | 2020-06-30 13:05 | NUR ---
Attempt report and rolled to voicemail.
--- NOTE | 2020-06-30 13:10 | NUR ---
Patient screaming for "NURSE, nurse". Pt requests pillow repositioned, HOB adjusted, her 3rd warm blanket, and wanted a new emesis bag. Approx 100 ml fluid in emesis bag.
--- NOTE | 2020-06-30 13:20 | NUR ---
Report completed with Jagdeep SHELLEY
--- NOTE | 2020-06-30 13:25 | NUR ---
Report called to ER that EMS just arriving back into [facility] and will be approx 30 min turn around time to getting to ER for this transfer.
--- NOTE | 2020-06-30 13:40 | NUR ---
Spoke with Trey Gutierrez that walked into waiting room to request update. Explained that the cell phone on file called went straight into voicemail.
--- NOTE | 2020-06-30 13:50 | NUR ---
Updated patient that Trey Gutierrez was updated as she requested. Pt made aware EMS will be here around 1400.
--- NOTE | 2020-06-30 14:13 | NUR ---
[facility] is pulling in to transfer patient.
--- NOTE | 2020-06-30 14:40 | NUR ---
MITCH ECHOLS admitted to room 412-1, with an admitting diagnosis of retractable nausea and vomiting, on 06/30/20 from [facility] via bed/cart, accompanied by staff.MITCH ECHOLS introduced to surroundings, call light, bed controls, phone, TV, temperature control, lights, meal times, smoking policy, visitor policy, side rail policy, bathrooms and showers. Patient Rights given to patient in the handbook. MITCH ECHOLS verbalizes understanding that [facility] is not responsible for the loss or damage to any personal effects or valuables that are kept in the patients posession during their hospitalization.
[2020-06-30] MEDS ORDERED: CATHETER FLUSH 10 ML SYR IV PRN (16:00)
[2020-06-30] MEDS ORDERED: ONDANSETRON 4 MG/2 ML (SDV) Z0FRAN IV PRN (16:00)
[2020-06-30] MEDS ORDERED: LORazepam INJ 2 MG/ML (ATIVAN) VIAL IV PRN (16:00)
[2020-06-30] MEDS ORDERED: PROMETHAZINE INJ 25 MG/ML (PHENERGAN) AMP IM PRN (16:00)
[2020-06-30] MEDS: D5 1/2 NS W/KCL 20 MEQ/L 1,000 ML IV SCH ×2 (16:02→23:46)
[2020-06-30 20:00] VITALS: BP 100/53
[2020-06-30] MEDS: PANTOPRAZOLE 40 MG (PROTONIX) VIAL IV SCH (20:05)
[2020-06-30] MEDS ORDERED: diphenhydrAMINE 25 MG TAB (BENADRYL) PO PRN (21:00)
[2020-06-30] MEDS ORDERED: CALCIUM CARBONATE 500 MG (TUMS) TAB.CHEW PO PRN (21:00)
[2020-06-30] MEDS ORDERED: ACETAMINOPHEN 500 MG TAB (TYLENOL) PO PRN (21:00)
[2020-06-30] MEDS ORDERED: DOCUSATE SODIUM 100 MG (COLACE) CAP PO PRN (21:00)
[2020-06-30] MEDS: MELATONIN 3 MG TABLET PO PRN (21:52)
[2020-06-30] MEDS: SENNA W/DOCUSATE (SENOKOT S) TABLET PO SCH (21:53)
[2020-07-01 00:25] VITALS: BP 109/55
[2020-07-01 04:00] VITALS: BP 98/51
[2020-07-01 05:50] LABS: BASOPHILS % (AUTO) 0 % (0-10); EOSINOPHILS # (AUTO) 0.3 10^3/uL (0.0-0.3); EOSINOPHILS % (AUTO) 3 % (0-10); HEMATOCRIT 41 % (35-52); HEMOGLOBIN 13.2 g/dL (11.5-16.0); LYMPHOCYTES # (AUTO) 2.6 10^3/uL (1.0-4.0); LYMPHOCYTES % (AUTO) 32 % (12-44); MEAN CORPUSCULAR HEMOGLOBIN 27 pg (25-34); MEAN CORPUSCULAR HGB CONC 33 g/dL (32-36); MEAN CORPUSCULAR VOLUME 83 fL (80-99); MEAN PLATELET VOLUME 10.1 fL (9.0-12.2); MONOCYTES # (AUTO) 0.7 10^3/uL (0.0-1.0); MONOCYTES % (AUTO) 9 % (0-12); NEUTROPHILS # (AUTO) 4.5 10^3/uL (1.8-7.8); NEUTROPHILS % (AUTO) 55 % (42-75); PLATELET COUNT 283 10^3/uL (130-400); WHITE BLOOD COUNT 8.3 10^3/uL (4.3-11.0)
[2020-07-01 06:00] LABS: ALBUMIN 3.2 GM/DL (3.2-4.5); BILIRUBIN,TOTAL 0.4 MG/DL (0.1-1.0); CALCIUM 7.9 MG/DL (8.5-10.1); CREATININE SERUM 1.33 MG/DL (0.60-1.30); POTASSIUM 2.8 MMOL/L (3.6-5.0); TOTAL PROTEIN 5.6 GM/DL (6.4-8.2)
[2020-07-01] MEDS: D5 1/2 NS W/KCL 20 MEQ/L 1,000 ML IV SCH ×3 (07:01→23:28)
--- NOTE | 2020-07-01 07:01 | Consultation - Surgery ---
INDIGO CARRIZALES,MED STUDENT 07/01/20 0701: History of Present Illness History of Present Illness Patient Consulted On(bang/time) 07/01/20 06:56 Date Seen by Provider: Jul 01, 2020 Time Seen by Provider: 06:40 History of Present Illness Aileen Aguero is a 40 year old female with PMH of pyloric stricture, depression and migraines who was admitted 06/30/20 for intractable nausea and vomiting, dehy dration and HILLARY. She states that she has not been able to keep food or liquids down for a few weeks now and has been feeling weak. She states she doesn't think her stomach is moving things through to her intestines again. She also reports dull epigastric abdominal pain that comes and goes. She reports it is better with pain medications. Nursing reports she also had loose stools overnight. Per records, last EGD with dilation was done in October of 2019. She denies fever, chills, chest pain, SOB. Allergies and Home Medications Allergies Coded Allergies: zolmitriptan (Verified Adverse Reaction, Unknown, 09/29/19) Home Medications Aspirin/Acetaminophen/Caffeine 1 Each Tablet, 2 EACH PO Q6-8HR PRN for Headache, (Reported) Cetirizine HCl 10 Mg Tablet, 10 MG PO HS, (Reported) Citalopram Hydrobromide 40 Mg Tablet, 40 MG PO HS, (Reported) Ergocalciferol (Vitamin D2) 1,250 Mcg Capsule, 1,250 MCG PO WEEK, (Reported) Ferrous Sulfate 325 Mg Tablet, 325 MG PO DAILY, (Reported) Levothyroxine Sodium 88 Mcg Tablet, 88 MCG PO DAILY, (Reported) Montelukast Sodium 10 Mg Tablet, 10 MG PO HS, (Reported) Ondansetron 8 Mg Tab.rapdis, 8 MG PO Q8H PRN for NAUSEA/VOMITING-1ST LINE, (Reported) Pantoprazole Sodium 20 Mg Tablet.dr, 20 MG PO BID, (Reported) Potassium Chloride 10 Meq Tablet.er, 10 MEQ PO DAILY, (Reported) Propranolol HCl 20 Mg Tablet, 20 MG PO BID, (Reported) Sucralfate 1 Gm Tablet, 1 GM PO DAILY, (Reported) Topiramate 100 Mg Tablet, 100 MG PO TID, (Reported) Past Pbfoymy-Enskso-Dattob Hx Patient Social History Smoking Status: Former Smoker Former Smoker, Quit: October 17, 2017 Type Used: Cigarettes 2nd Hand Smoke Exposure: No Recent Hopitalizations: No Have you traveled recently?: No Immunizations Up To Date Date of Influenza Vaccine: Mar 13, 2020 Seasonal Allergies Seasonal Allergies: Yes Surgeries History of Surgeries: Yes Surgeries: Gallbladder Respiratory History of Respiratory Disorde: No Cardiovascular History of Cardiac Disorders: No Neurological History of Neurological Disord: Yes Neurological Disorders: Headaches /Migraines Reproductive System : No (on Depo shots she states) Genitourinary History of Genitourinary Disor: No Gastrointestinal History of Gastrointestinal Di: Yes (chronic gastritis, pyloric stenosis) Musculoskeletal History of Musculoskeletal Dis: Yes (RLS) Endocrine History of Endocrine Disorders: No HEENT History of HEENT Disorders: No Cancer History of Cancer: No Psychosocial History of Psychiatric Problem: Yes Behavioral Health Disorders: Depression Integumentary History of Skin or Integumenta: No Blood Transfusions History of Blood Disorders: No Family Medical History Significant Family History: Cancer (lung-grandma), Diabetes (grandma) Review of Systems-General Constitutional: No chills, No dizziness, No fever; weakness EENTM: No mouth pain, No nose congestion, No throat pain Respiratory: No cough, No short of breath, No wheezing Cardiovascular: No chest pain, No edema, No palpitations Gastrointestinal: abdominal pain; No diarrhea, No dysphagia; loss of appetite; No melena; nausea, vomiting Genitourinary: No dysuria, No frequency, No hematuria Musculoskeletal: No back pain, No muscle pain; muscle weakness (generalized) Skin: No lesions, No rash Psychiatric/Neurological: Denies Headache, Denies Numbness, Denies Tingling; Weakness Other Heme: no easy bleeding or bruising Physical Exam-General Problems Physical Exam Vital Signs Vital Signs - First Documented 06/30/20 10:45 Temp 36.5 Pulse 98 Resp 16 B/P (MAP) 122/85 (97) Pulse Ox 97 O2 Delivery Room Air Capillary Refill : Less Than 3 Seconds General Appearance: WD/WN, no apparent distress Eyes: Bilateral Eye EOMI HEENT: No scleral icterus (R), No scleral icterus (L) Neck: non-tender, full range of motion, supple; No lymphadenopathy (R), No lymphadenopathy (L) Respiratory: lungs clear, no respiratory distress, no accessory muscle use Cardiovascular: regular rate, rhythm, no edema, no murmur Peripheral Pulses: 2+ Radial Pulses (R), 2+ Radial Pulses (L) Gastrointestinal: normal bowel sounds, soft; No distended; tenderness (generalized) Back: normal inspection, no vertebral tenderness Extremities: normal range of motion, no pedal edema, no calf tenderness Neurologic/Psychiatric: no motor/sensory deficits, alert, oriented x 3, depressed affect Skin: normal color, warm/dry Lymphatic: no adenopathy (cervical, axillary, inguinal) Data Review Labs Laboratory Tests 06/30/20 10:45: Urine Color YELLOW, Urine Clarity CLOUDYH, Urine pH 8.5, Urine Specific [place] 1.015L, Urine Protein 1+H, Urine Glucose (UA) NEGATIVE, Urine Ketones 2+H, Urine Nitrite NEGATIVE, Urine Bilirubin 3+H, Urine Urobilinogen 0.2, Urine Leukocyte Esterase 1+H, Urine RBC (Auto) 1+H, Urine RBC 50-100H, Urine WBC 5-10H, Urine Squamous Epithelial Cells 25-50H, Urine Crystals NONE, Urine Bacteria LARGEH, Urine Casts PRESENT, Urine Hyaline Casts 10-25H, Urine Mucus MODERATEH, Urine Culture Indicated YES 06/30/20 10:52: White Blood Count 14.7H, Red Blood Count 6.22H, Hemoglobin 16.8H, Hematocrit 50, Mean Corpuscular Volume 80, Mean Corpuscular Hemoglobin 27, Mean Corpuscular Hemoglobin Concent 34, Red Cell Distribution Width 12.1, Platelet Count 549H, Mean Platelet Volume 9.7, Immature Granulocyte % (Auto) 0, Neutrophils (%) (Auto) 77H, Lymphocytes (%) (Auto) 16, Monocytes (%) (Auto) 6, Eosinophils (%) (Auto) 1, Basophils (%) (Auto) 0, Neutrophils # (Auto) 11.3H, Lymphocytes # (Auto) 2.4, Monocytes # (Auto) 0.8, Eosinophils # (Auto) 0.1, Basophils # (Auto) 0.0, Immature Granulocyte # (Auto) 0.1, Neutrophils % (Manual) 72, Lymphocytes % (Manual) 14, Monocytes % (Manual) 8, Eosinophils % (Manual) 2, Basophils % (Manual) 0, Band Neutrophils 4, Microcytosis 1+, Sodium Level 131L, Potassium Level 2.9L, Chloride Level 78L, Carbon Dioxide Level 34H, Anion Gap 19H, Blood Urea Nitrogen 32H, Creatinine 1.63H, Estimat Glomerular Filtration Rate 35, BUN/Creatinine Ratio 20, Glucose Level 160H, Calcium Level 10.2H, Corrected Calcium , Total Bilirubin 0.7, Aspartate Amino Transf (AST/SGOT) 44H, Alanine Am inotransferase (ALT/SGPT) 57H, Alkaline Phosphatase 166H, Total Protein 8.1, Albumin 4.6H, Lipase 41 07/01/20 05:23: White Blood Count 8.3, Red Blood Count 4.90, Hemoglobin 13.2, Hematocrit 41, Mean Corpuscular Volume 83, Mean Corpuscular Hemoglobin 27, Mean Corpuscular Hemoglobin Concent 33, Red Cell Distribution Width 11.9, Platelet Count 283, Mean Platelet Volume 10.1, Immature Granulocyte % (Auto) 1, Neutrophils (%) (Auto) 55, Lymphocytes (%) (Auto) 32, Monocytes (%) (Auto) 9, Eosinophils (%) (Auto) 3, Basophils (%) (Auto) 0, Neutrophils # (Auto) 4.5, Lymphocytes # (Auto) 2.6, Monocytes # (Auto) 0.7, Eosinophils # (Auto) 0.3, Basophils # (Auto) 0.0, Immature Granulocyte # (Auto) 0.1, Sodium Level 135, Potassium Level 2.8L, Chloride Level 95L, Carbon Dioxide Level 27, Anion Gap 13, Blood Urea Nitrogen 20H, Creatinine 1.33H, Estimat Glomerular Filtration Rate 44, BUN/Creatinine Ratio 15, Glucose Level 130H, Calcium Level 7.9L, Corrected Calcium 8.5, Total Bilirubin 0.4, Aspartate Amino Transf (AST/SGOT) 34, Alanine Aminotransferase (ALT/SGPT) 43, Alkaline Phosphatase 101, Total Protein 5.6L, Albumin 3.2 Assessment/Plan Assessment/Plan Assessment/Plan Intractable nausea and vomiting Dehydration Hx of pyloric/duodenal stenosis requiring dilation HILLARY, Cr 1.33 this AM UTI Hypokalemia, K 2.8 this AM Continue IV fluids, zofran for nausea Caftriaxone for UTI Replace potassium Will consider EGD with possible dilation while pt is here Encourage ambulation, IS DVT and GI ppx JOSE MUKHERJEE DO 07/01/20 7660: History of Present Illness History of Present Illness Time Seen by Provider: 09:08 History of Present Illness I actually saw this pt in my office on Sunday with similar complaints and had her scheduled for procedure on Sunday. She was admitted secondary to dehydration and acute renal failure. When I walked in her room she was sleeping comfortably and easily arousable. Allergies and Home Medications Allergies Coded Allergies: zolmitriptan (Verified Adverse Reaction, Unknown, 09/29/19) Home Medications Aspirin/Acetaminophen/Caffeine 1 Each Tablet, 2 EACH PO Q6-8HR PRN for Headache, (Reported) Cetirizine HCl 10 Mg Tablet, 10 MG PO HS, (Reported) Citalopram Hydrobromide 40 Mg Tablet, 40 MG PO HS, (Reported) Ergocalciferol (Vitamin D2) 1,250 Mcg Capsule, 1,250 MCG PO WEEK, (Reported) Ferrous Sulfate 325 Mg Tablet, 325 MG PO DAILY, (Reported) Levothyroxine Sodium 88 Mcg Tablet, 88 MCG PO DAILY, (Reported) Montelukast Sodium 10 Mg Tablet, 10 MG PO HS, (Reported) Ondansetron 8 Mg Tab.rapdis, 8 MG PO Q8H PRN for NAUSEA/VOMITING-1ST LINE, (Reported) Pantoprazole Sodium 20 Mg Tablet.dr, 20 MG PO BID, (Reported) Potassium Chloride 10 Meq Tablet.er, 10 MEQ PO DAILY, (Reported) Propranolol HCl 20 Mg Tablet, 20 MG PO BID, (Reported) Sucralfate 1 Gm Tablet, 1 GM PO DAILY, (Reported) Topiramate 100 Mg Tablet, 100 MG PO TID, (Reported) Patient Home Medication List Home Medication List Reviewed: Yes Past Qhuvqyh-Qgjsks-Fncdsq Hx Patient Social History Smoking Status: Former Smoker Alcohol Use?: No Surgeries History of Surgeries: Yes Genitourinary History of Genitourinary Disor: No Gastrointestinal History of Gastrointestinal Di: Yes (chronic gastritis, pyloric stenosis) Musculoskeletal History of Musculoskeletal Dis: No Endocrine History of Endocrine Disorders: Yes Endocrine Disorders: Hypothyroidsim Cancer History of Cancer: No Psychosocial History of Psychiatric Problem: Yes Family Medical History Significant Family History: Cancer (lung-grandma), Diabetes (grandma) Review of Systems-General Constitutional: No chills, No dizziness, No fever; weakness EENTM: No mouth pain, No nose congestion Respiratory: No cough, No short of breath, No wheezing Cardiovascular: No chest pain, No edema, No palpitations Gastrointestinal: abdominal pain; No diarrhea, No dysphagia; loss of appetite; No melena; nausea, vomiting Genitourinary: No dysuria, No frequency, No hematuria Musculoskeletal: No back pain, No muscle pain; muscle weakness (generalized) Skin: No lesions, No rash Psychiatric/Neurological: Denies Headache, Denies Numbness, Denies Tingling; Weakness Physical Exam-General Problems Physical Exam General Appearance: WD/WN, no apparent distress Eyes: Bilateral Eye PERRL, Bilateral Eye EOMI HEENT: No scleral icterus (R), No scleral icterus (L) Neck: non-tender, full range of motion, supple Respiratory: lungs clear, normal breath sounds, no respiratory distress, no accessory muscle use Cardiovascular: regular rate, rhythm, no edema, no murmur Gastrointestinal: normal bowel sounds, soft; No distended; tenderness (generalized) Back: normal inspection, no CVA tenderness, no vertebral tenderness Extremities: normal range of motion, no pedal edema, no calf tenderness Neurologic/Psychiatric: napper fixer II-XII nml as tested, no motor/sensory deficits, alert, oriented x 3 Skin: normal color, warm/dry Lymphatic: no adenopathy (cervical, axillary, inguinal) Assessment/Plan Assessment/Plan Assessment/Plan Intractable nausea and vomiting Dehydration Hx of pyloric/duodenal stenosis requiring dilation HILLARY, Cr 1.33 this AM (improving) UTI Hypokalemia, K 2.8 this AM Continue IV fluids, zofran for nausea Caftriaxone for UTI Replace potassium Plan EGD with possible dilation 07/02 Encourage ambulation, IS DVT and GI ppx Supervisory-Addendum Brief Verification & Attestation Participated in pt care: history, MDM, physical Personally performed: exam, history, MDM Care discussed with: Medical Student Procedures: n/a Verification and Attestation of Medical Student E/M Service A medical student performed and documented this service. I then reviewed and verified all information documented by the medical student and made modifications to such information, when appropriate. I personally performed a physical exam, medical decision making and then discussed any differences between the notes and made revisions as necessary to create one note. Jose Mukherjee , 07/01/20 , 18:01 INDIGO CARRIZALES,MED STUDENT Jul 01, 2020 07:01 JOSE MUKHERJEE DO Jul 01, 2020 17:59
[2020-07-01 08:21] VITALS: BP 103/62
[2020-07-01] MEDS: PANTOPRAZOLE 40 MG (PROTONIX) VIAL IV SCH ×2 (08:33→20:04)
[2020-07-01] MEDS: SENNA W/DOCUSATE (SENOKOT S) TABLET PO SCH ×2 (08:33→20:49)
[2020-07-01] MEDS ORDERED: ERGO50006 PO (09:50)
[2020-07-01] MEDS ORDERED: ONDA8TAB13 PO (09:50)
[2020-07-01] MEDS ORDERED: POTA10TA6 PO (09:50)
[2020-07-01] MEDS ORDERED: ASPI-789 PO (09:50)
--- NOTE | 2020-07-01 09:57 | NUR ---
SPOKE WITH THE PT AND WENT THRU THE EXT MED HISTORY TO COMPLETE THE MED REC VITAMIN D2 1250MCG- ACCORDING TO THE PT HER FIRST DOSE WAS LAST WEEK AND SHE DOES NOT REMEMBER WHICH DAY SHE TOOK IT, WHEN I ASKED IF THERE WAS A CERTAIN DAY OF THE WEEK GOING FORWARD SHE WOULD PREFER TO TAKE IT, AND PT REPLIED THAT SHE WASNT SURE AND IT DEPENDED ON WHEN SHE IS DISCHARGED. FERROUS SULFATE 325MG- DIRECTIONS SHOW 1 TAB BID HOWEVER PT SAYS SHE ONLY TAKES 1 TAB DAILY CARAFATE 1GM- DIRECTIONS ARE 1 QIDAC BUT PT SAYS SHE ONLY TAKES 1 TAB DAILY OTC MEDS: EXCEDRIN
--- NOTE | 2020-07-01 11:41 | History & Physical-Hospitalist ---
History of Present Illness HPI/Chief Complaint CC: Recurrent nausea and vomiting HPI: This is a 40yoWF clinic pt of Dr. Villarreal who has had multiple gastrointestinal problems who is set to have a pyloric dilation by Dr. Mukherjee next week who had 4 ER visits to address the nausea and vomiting. She was admitted, placed on IV fluids, potassium supplementation initiated today because its 2.[address] Mukherjee intends to do the procedure tomorrow. I restarted all of her home psych meds. Pt appears to be very chronically ill and older than 40. Source: patient, RN/MD, old records Exam Limitations: clinical condition Date Seen 07/01/20 Time Seen by a Provider: 11:00 Attending Physician Altagracia Fowler Maxwell MD Referring Physician Date of Admission Jun 30, 2020 at 15:35 Home Medications & Allergies Home Medications Reviewed patient Home Medication Reconciliation performed by pharmacy medication reconciliations cleaning technician and/or nursing. Patients Allergies have been reviewed. Allergies Allergies Coded Allergies zolmitriptan (Verified Adverse Reaction, Unknown, 09/29/19) Past Pwrdqez-Qguqen-Xzwrrj Hx Past Med/Social Hx: Reviewed Nursing Past Med/Soc Hx, Reviewed and Corrections made Patient Social History Marrital Status: single Employed/Student: unemployed Alcohol Use: Denies Use Recreational Drug Use: No Smoking Status: Former Smoker Former Smoker, Quit: October 17, 2017 Type Used: Cigarettes 2nd Hand Smoke Exposure: No Recent Foreign Travel: No Contact w/other who traveled: No Recent Hopitalizations: No Recent Infectious Disease Expo: No Immunizations Up To Date Date of Influenza Vaccine: Mar 13, 2020 Seasonal Allergies Seasonal Allergies: Yes Past Medical History Surgeries: Gallbladder Neurological: Headaches /Migraines : No (on Depo shots she states) Psychosocial: Depression History of Blood Disorders: No Family History Cancer (lung-grandma), Diabetes (grandma) Review of Systems Constitutional: see HPI Gastrointestinal: abdominal pain, loss of appetite, nausea, vomiting Physical Exam Physical Exam Vital Signs Vital Signs - First Documented 06/30/20 10:45 Temp 36.5 Pulse 98 Resp 16 B/P (MAP) 122/85 (97) Pulse Ox 97 O2 Delivery Room Air Capillary Refill : Less Than 3 SecondsLess Than 3 Seconds Height, Weight, BMI Height: 5'3.00" Weight: 160lbs. 0oz. [id number]; 11.79 BMI Method:Stated General Appearance: No Apparent Distress, Chronically ill Eyes: Right Eye Normal Inspection, Right Eye PERRL HEENT: PERRL/EOMI, Normal ENT Inspection, Pharynx Normal, Moist Mucous Membranes Neck: Full Range of Motion, Normal Inspection, Non Tender Respiratory: Chest Non Tender, Lungs Clear, Normal Breath Sounds, No Accessory Muscle Use, No Respiratory Distress Cardiovascular: Regular Rate, Rhythm, No Edema, No Gallop, No JVD, No Murmur, Normal Peripheral Pulses Gastrointestinal: Normal Bowel Sounds, No Organomegaly, No Pulsatile Mass, Non Tender, Soft Back: Normal Inspection, No CVA Tenderness, No Vertebral Tenderness Extremity: Normal Capillary Refill, Normal Inspection, Normal Range of Motion, Non Tender, No Calf Tenderness, No Pedal Edema Neurologic/Psychiatric: Alert, Oriented x3, No Motor/Sensory Deficits, Depressed Affect Skin: Normal Color, Warm/Dry Lymphatic: No Adenopathy Results Results/Procedures Labs Laboratory Tests 06/30/20 10:52 07/01/20 05:23 Patient resulted labs reviewed. Assessment/Plan Admission Diagnosis Assessment: Severe N/V refractory Pyloric stenosis Depression Chronic debility Severe hypokalemia Plan: Monitor closely Replace potassium Admission Status: Observation Diagnosis/Problems Diagnosis/Problems (1) Intractable nausea and vomiting Status: Acute (2) Acquired pyloric stricture Status: Acute ALTAGRACIA FOWLER DO Jul 01, 2020 11:41
[2020-07-01] MEDS ORDERED: MAGNESIUM 1 GM/100 ML IVPB 100 ML IV ONE (11:45)
[2020-07-01] MEDS ORDERED: NON-FORMULARY MEDICATION 1 EA EA (Aspirin/Acetaminophen/Caffeine (Excedrin Migraine Caplet PO PRN (11:45)
[2020-07-01 11:53] VITALS: BP 104/69
[2020-07-01] MEDS ORDERED: cefTRIAXone 1,000 MG/SWFI 10 ML IV PUSH IV SCH ×2 (12:00)
[2020-07-01] MEDS: POTASSIUM CL 10MEQ/50ML IVPB 50 ML IV SCH ×7 (13:12→20:49)
[2020-07-01] MEDS: toPIRamate 100 MG (TOPAMAX) TAB PO SCH ×2 (13:15→20:04)
[2020-07-01] MEDS ORDERED: NS IV 500 ML 500 ML ONE (14:13)
--- NOTE | 2020-07-01 15:02 | NUR ---
"RD ASSESSMENT PMHx: chronic gastritis; PT INTERACTION: Pt was awake and pleasant during consult for MST score. Pt states current appetite is so-so. Note pt has refused meals, per chart review. Pt states following a regular diet at home, and has no issues with chewing/swallowing food. Pt states recent issues with n//v/d, and that her last BM was 07/01. Note pt currently on bowel regimen of senna BID, per chart review. Pt states recent 170# wt loss. Note recent 186# wt loss x4mon. This is extremely significant wt loss at 65%. Given PO intake and wt hx, pt meets criteria for malnutrition per ASPEN guidelines. Est. kcal needs: 8265-2675 kcal | 25-30 kcal/kg IBW, based on IBW of 52.3 kg (115#) Est. Pro needs: 52-62 g Pro | 1.0-1.2 g Pro/kg IBW PES STATEMENT: Inadequate oral intake (NI-2.1) related to loss of appetite, nausea, vomiting, and diarrhea, as evidenced by pt interview, and pt refusing trays. INTERVENTION: Continue with current diet order of Clear Liquid diet. Would recommend diet advancement when medically able and as tolerated. Pt may benefit from nutrition supplementation if PO intake remains low. Encouraged pt to eat when able. Will continue to follow and reassess as pt needs, intake, and status change. Kaveh SANDOVAL, MS RD LD [phone] cell"
[2020-07-01 16:19] VITALS: BP 107/58
--- NOTE | 2020-07-01 16:40 | NUR ---
Requested midline IV for patient as she had 8 bags of potassium, IV antibiotics, and mag to infuse and the IV site in R AC fragile. After midline placed I started NS at 30 ml/hr and a bag of potassium to run concurrently. After about 15 minutes patient crying that the midline site was painful. I stopped fluids and patient began screaming "take it out". After a few minutes I was able to get her to stop screaming so I could assess the site and I stopped the fluids. Contacted the nurse who put in the midline and she indicated it was a difficult insertion. I tried to flush the midline but it would not flush so took the midline out. Patient complains of some pain in upper L arm, slight redness noted, arm wrapped with warm blankets. called and when I called back there was no answer, patient said she has spoke with and no need to call him back. I will try a little later.
[2020-07-01] MEDS: PROPRANOLOL 20 MG (INDERAL) TABLET PO SCH (20:04)
[2020-07-01] MEDS: MELATONIN 3 MG TABLET PO PRN (20:05)
[2020-07-01] MEDS: LORATADINE (CLARITIN) 10 MG TAB PO SCH (20:05)
[2020-07-01] MEDS: MONTELUKAST 10 MG (SINGULAIR) TAB PO SCH (20:05)
[2020-07-01 20:13] VITALS: BP 115/64
[2020-07-02] VITALS (14 sets, daily range): BP systolic 88–129; BP diastolic 52–76
[2020-07-02 06:15] LABS: BASOPHILS % (AUTO) 1 % (0-10); EOSINOPHILS # (AUTO) 0.2 10^3/uL (0.0-0.3); EOSINOPHILS % (AUTO) 4 % (0-10); HEMATOCRIT 37 % (35-52); HEMOGLOBIN 11.6 g/dL (11.5-16.0); LYMPHOCYTES # (AUTO) 2.4 10^3/uL (1.0-4.0); LYMPHOCYTES % (AUTO) 40 % (12-44); MEAN CORPUSCULAR HEMOGLOBIN 27 pg (25-34); MEAN CORPUSCULAR HGB CONC 32 g/dL (32-36); MEAN CORPUSCULAR VOLUME 86 fL (80-99); MEAN PLATELET VOLUME 9.7 fL (9.0-12.2); MONOCYTES # (AUTO) 0.5 10^3/uL (0.0-1.0); MONOCYTES % (AUTO) 9 % (0-12); NEUTROPHILS # (AUTO) 2.8 10^3/uL (1.8-7.8); NEUTROPHILS % (AUTO) 47 % (42-75); PLATELET COUNT 283 10^3/uL (130-400)
[2020-07-02 06:30] LABS: ALBUMIN 2.9 GM/DL (3.2-4.5); POTASSIUM 3.2 MMOL/L (3.6-5.0)
[2020-07-02 06:31] LABS: CALCIUM 8.2 MG/DL (8.5-10.1)
[2020-07-02 06:34] LABS: BILIRUBIN,TOTAL 0.3 MG/DL (0.1-1.0)
[2020-07-02 06:36] LABS: CREATININE SERUM 1.12 MG/DL (0.60-1.30)
[2020-07-02 06:39] LABS: MAGNESIUM 1.7 MG/DL (1.6-2.4)
--- NOTE | 2020-07-02 07:57 | Progress Note - Surgery ---
BOB UMANZORLAN MED STUDENT 07/02/20 0757: Subjective Date Seen by a Provider: Jul 02, 2020 Time Seen by a Provider: 07:00 Subjective/Events-last exam Pt was seen and examined this morning, She has been eating chicken broth without issue and denied nausea, vomiting, abdominal tenderness, or epigastric pain. She only stated that she felt better and wanted to go home. Pt did had a BM this morning and described it as diarrhea. Review of Systems General: Fatigue Focused Exam Time of Focused Exam: 07:00 Respiratory: Chest Non Tender, Lungs Clear, Normal Breath Sounds, No Accessory Muscle Use, No Respiratory Distress Cardiovascular: Regular Rate, Rhythm, No Edema, No Gallop, No Murmur, Normal Peripheral Pulses Skin: normal color, warm/dry Objective Exam Vital Signs Date Time Temp Pulse Resp B/P (MAP) Pulse Ox O2 Delivery O2 Flow Rate FiO2 07/02/20 07:00 85 07/02/20 04:01 36.7 78 18 97/58 (71) 98 Room Air 07/02/20 01:00 80 07/02/20 00:12 36.2 83 18 95/57 (70) 98 Room Air 07/01/20 20:13 36.2 88 18 115/64 (81) 99 Room Air 07/01/20 20:00 Room Air 07/01/20 19:00 90 07/01/20 16:19 35.7 86 16 107/58 (74) 100 Room Air 07/01/20 12:30 82 07/01/20 11:53 35.9 86 18 104/69 (81) 99 Room Air 07/01/20 08:21 35.8 82 18 103/62 (76) 95 Room Air 07/01/20 08:00 95 Room Air I & O 07/02/20 07:00 Intake Total 1760 ml Output Total 400 ml Balance 1360 ml Capillary Refill : Less Than 3 SecondsLess Than 3 Seconds General Appearance: No Apparent Distress, Chronically ill HEENT: PERRL/EOMI Neck: Normal Inspection, Non Tender, Supple Respiratory: Chest Non Tender, Lungs Clear, Normal Breath Sounds, No Accessory Muscle Use, No Respiratory Distress Cardiovascular: Regular Rate, Rhythm, No Edema, No Gallop, No Murmur, Normal Peripheral Pulses Peripheral Pulses: 2+ Radial Pulses (R), 2+ Radial Pulses (L) Gastrointestinal: normal bowel sounds, non tender, soft, no organomegaly, no pulsatile mass Extremity: Normal Capillary Refill, Normal Inspection, Normal Range of Motion, Non Tender, No Calf Tenderness, No Pedal Edema Neurologic/Psychiatric: Alert, Oriented x3, No Motor/Sensory Deficits, Depressed Affect Skin: Normal Color, Warm/Dry Lymphatic: No Adenopathy (cervical, inguinal, or axila) Results Lab Laboratory Tests 07/01/20 23:21: 07/02/20 05:55: White Blood Count 6.0, Red Blood Count 4.28, Hemoglobin 11.6, Hematocrit 37, Mean Corpuscular Volume 86, Mean Corpuscular Hemoglobin 27, Mean Corpuscular Hemoglobin Concent 32, Red Cell Distribution Width 12.1, Platelet Count 283, Mean Platelet Volume 9.7, Immature Granulocyte % (Auto) 1, Neutrophils (%) (Auto) 47, Lymphocytes (%) (Auto) 40, Monocytes (%) (Auto) 9, Eosinophils (%) (Auto) 4, Basophils (%) (Auto) 1, Neutrophils # (Auto) 2.8, Lymphocytes # (Auto) 2.4, Monocytes # (Auto) 0.5, Eosinophils # (Auto) 0.2, Basophils # (Auto) 0.0, Immature Granulocyte # (Auto) 0.0, Sodium Level 139, Potassium Level 3.2L, Chloride Level 106, Carbon Dioxide Level 23, Anion Gap 10, Blood Urea Nitrogen 9, Creatinine 1.12, Estimat Glomerular Filtration Rate 53, BUN/Creatinine Ratio 8, Glucose Level 121H, Calcium Level 8.2L, Corrected Calcium 9.1, Magnesium Level 1.7, Total Bilirubin 0.3, Aspartate Amino Transf (AST/SGOT) 40H, Alanine Aminotransferase (ALT/SGPT) 49, Alkaline Phosphatase 96, Total Protein 5.0L, Albumin 2.9L Microbiology 06/30/20 Urine Culture - Final, Complete >=3 Gram Positive Isolates Assessment/Plan Assessment/Plan Assessment/Plan Dehydration Hx of pyloric/duodenal stenosis requiring dilation HILLARY UTI Hypokalemia, K 3.2 this AM Continue IV fluids, zofran for nausea Caftriaxone for UTI Replace potassium EGD with possible dilation today Encourage ambulation, IS DVT and GI ppx JOSE ROGER DO 07/02/20 1248: Subjective Time Seen by a Provider: 12:43 Subjective/Events-last exam Pt seen and examined, states she has not been throwing up and has very minimal abdominal pain. Review of Systems General: Fatigue Pulmonary: No Dyspnea, No Cough Cardiovascular: No: Chest Pain, Palpitations Gastrointestinal: Nausea, Abdominal Pain; No: Vomiting Objective Exam General Appearance: No Apparent Distress, Chronically ill Respiratory: Chest Non Tender, Lungs Clear, Normal Breath Sounds, No Accessory Muscle Use, No Respiratory Distress Cardiovascular: Regular Rate, Rhythm, No Murmur Gastrointestinal: non tender, soft, no organomegaly Assessment/Plan Assessment/Plan Assessment/Plan Dehydration Hx of pyloric/duodenal stenosis requiring dilation HILLARY -resolved UTI Hypokalemia, K 3.2 this AM (improving) Continue IV fluids, zofran for nausea Caftriaxone for UTI Replace potassium EGD with possible dilation today Encourage ambulation and IS, DVT and GI ppx Supervisory-Addendum Brief Verification & Attestation Participated in pt care: history, MDM, physical Personally performed: exam, history, MDM Care discussed with: Medical Student Procedures: n/a Verification and Attestation of Medical Student E/M Service A medical student performed and documented this service. I then reviewed and verified all information documented by the medical student and made modifications to such information, when appropriate. I personally performed a physical exam, medical decision making and then discussed any differences between the notes and made revisions as necessary to create one note. Jose Roger , 07/02/20 , 12:48 SANDRO UMANZOR MED STUDENT Jul 02, 2020 07:57 JOSE ROGER DO Jul 02, 2020 12:48
[2020-07-02] MEDS: D5 1/2 NS W/KCL 20 MEQ/L 1,000 ML IV SCH ×2 (08:08→21:41)
[2020-07-02] MEDS: PROPRANOLOL 20 MG (INDERAL) TABLET PO SCH ×2 (09:00→21:00)
[2020-07-02] MEDS: SENNA W/DOCUSATE (SENOKOT S) TABLET PO SCH (09:00)
[2020-07-02] MEDS: LEVOTHYROXINE 88 MCG (LEVOTHORID) TAB PO SCH (09:28)
[2020-07-02] MEDS: PANTOPRAZOLE 40 MG (PROTONIX) VIAL IV SCH ×2 (09:28→20:34)
[2020-07-02] MEDS ORDERED: MAGNESIUM 1 GM/100 ML IVPB 100 ML IV NR (10:15)
[2020-07-02] MEDS ORDERED: NS IV 500 ML 500 ML IV SCH (10:15)
[2020-07-02] MEDS ORDERED: NS IV 500 ML 500 ML ONE (10:20)
[2020-07-02] MEDS: POTASSIUM CL 10MEQ/50ML IVPB 50 ML IV SCH ×4 (11:34→20:18)
--- NOTE | 2020-07-02 12:40 | Physician Query Clarification ---
"Physician Query-General Query to Physician: The medical record reflects the following clinical scenario: History/Risk factors: intractable N/V, decreased oral intake, pyloric stenosis Clinical Findings: Cr 1.63 -> 1.12 Est GFR 35 -> 53, Na 131 Treatment: 2L NS in ER, > 5L IVFs this admission, Surgical consult for pyloric stenosis, Question: What condition best reflects the above clinical scenario? Please document response in the Progress notes or Discharge Summary. 1. Acute Kidney Injury 2. Acute Renal insufficiency/HILLARY (as currently documented by Dr. Nguyen/Dr. Mukherjee ) 3. Other , with explanation of the clinical findings 4. Clinically undetermined, no explanation for the clinical findings Please remember a lack of response to the above will prompt a phone page by CDI/coding staff In responding to this query, please exercise your independent professional judgment. The purpose of this communication is to more accurately reflect the complexity of your patients condition. The fact that a question is asked does not imply that any particular answer is desired or expected. Thank you for timely response to this clarification. Tatum Mesa, MSN, RN RN Specialist-Clinical Doc Improvement CD -Health Info Mgmt Operations [address] [facility] t: [phone] | f: [phone] If you are unable to reach me at my extension, I may be working from home. Please contact me at [phone] PHYSICIAN RESPONSE: Based on the clinical findings in the record, please respond to the query above on this document as an addendum. Physician Response: Physician Response 2 If you have questions please contact: Librarian [employer]: Ext: Thank you for your time and cooperation. Clinical Gullet Slitter/[employer]ibrarian [employer] This is a permanent part of the medical record TATUM MESA Jul 02, 2020 12:40 OWEN VARELA DO Jul 02, 2020 13:16"
[2020-07-02] MEDS ORDERED: PROPOFOL INJECTION 50 ML IV ONE (12:55)
[2020-07-02] MEDS ORDERED: MIDAZOLAM 2 MG/2 ML (VERSED) VIAL ONE (12:56)
[2020-07-02] MEDS: toPIRamate 100 MG (TOPAMAX) TAB PO SCH ×3 (13:00→20:34)
[2020-07-02] MEDS ORDERED: LACTATED RINGERS 1,000 ML IV ONE (13:02)
[2020-07-02] MEDS ORDERED: ONDANSETRON 4 MG/2 ML (SDV) Z0FRAN ONE (13:24)
--- NOTE | 2020-07-02 13:33 | Progress Note-Post Operative ---
Post-Operative Progess Note Surgeon (s)/Cylinder Block Hole Reliner (s) Surgeon JOSE ROGER DO Cylinder Block Hole Reliner: none Pre-Operative Diagnosis Duodenal stricture Post-Operative Diagnosis same Procedure & Operative Findings Date of Procedure 07/02/20 Procedure Performed/Findings EGD with bx Anesthesia Type IV sedation by VICE PRINCIPAL Estimated Blood Loss Estimated blood loss (mL): scant Specimens/Packing Specimens Removed pylorus bx JOSE ROGER DO Jul 02, 2020 13:33
--- NOTE | 2020-07-02 15:05 | Diagnostic Imaging Report ---
INDICATION: Shortness of breath and cough. Aspiration. COMPARISON with 06/30/2020. FINDINGS: There has been development of alveolar infiltrate in the left lower lung. Left upper lung is clear. The right lung is clear. Heart is not enlarged. There is mild left basilar effusion. IMPRESSION: Development of left lower lobe alveolar infiltrate and small left basilar pleural effusion consistent with pneumonia. Dictated by: Dictated on workstation # [id number]
[2020-07-02] MEDS ORDERED: POTASSIUM CL 10MEQ/50ML IVPB 50 ML IV ONE (18:26)
--- NOTE | 2020-07-02 19:39 | NUR ---
Returned from [facility] approximately 1500, patient had aspirated during her EGD and needed to be placed on oxygen. When she got to the room she was drying and demanding to leave. Threatened to leave AMA. Once in room was able to reason with her and talk about why she needed to stay at least tonight and she did finally agree. Gave Trey update on EGD outcome.
--- NOTE | 2020-07-02 19:55 | OPERATIVE REPORT ---
DATE OF SERVICE: 07/02/2020 PREOPERATIVE DIAGNOSES: Nausea, vomiting, history of pyloric stricture. POSTOPERATIVE DIAGNOSES: Nausea, vomiting, history of pyloric stricture. PROCEDURE: EGD with biopsy. SURGEON: Raymond Mukherjee DO FOURDRINIER MACHINE OPERATOR: None. ANESTHESIA: IV sedation by the DIRECT CARE PROVIDER. SPECIMEN: Biopsy from the pylorus. BLOOD LOSS: Scant. FLUIDS: Per anesthesia. POSTOPERATIVE CONDITION: Stable. INDICATION FOR PROCEDURE: The patient is a 41-year-old female who had a history of pyloric stenosis with dilation, biopsy done at that time did not show any diagnostic. She has been having increased abdominal pain and nausea, vomiting, needed a repeat EGD. She also came into the hospital with a UTI and acute kidney injury. FINDINGS: The patient had a very severe pyloric stricture. Unsure if I could not even get the biopsy through. Elected to do a biopsy of the pyloric canal. Unfortunately, while doing this because it was so strictured down, she had a lot of food in the stomach and she actually vomited, desaturated a little bit, elected to just stop the procedure at this point. I had already gotten biopsies, do not believe that I would be able to do a dilation. Therefore to help her get over the desaturation; the scope was removed expeditiously. She was then recovered in endoscopy suite. Job ID: [id number] DocumentID: [id number] Dictated Date: 07/02/2020 13:27:23 Sales Support Representative Date: 07/02/2020 19:54:48 Dictated By: RAYMOND MUKHERJEE DO [facility]
[2020-07-02] MEDS: MONTELUKAST 10 MG (SINGULAIR) TAB PO SCH (20:34)
[2020-07-02] MEDS: LORATADINE (CLARITIN) 10 MG TAB PO SCH (20:34)
[2020-07-02] MEDS: ACETAMINOPHEN 325 MG TABLET PO PRN (20:54)
--- NOTE | 2020-07-02 20:54 | NUR ---
pt 96/66, heart rate 111. Dr Fowler ordered to hold pt's propanolol when SBP less than 120
[2020-07-03] VITALS (13 sets, daily range): BP systolic 80–136; BP diastolic 35–80
--- NOTE | 2020-07-03 01:26 | NUR ---
NOTIFIED DR VARELA OF PT'S B/P 92/, AND HEART RATE OF 115, THAT THE INCREASED HEART RATE IS NEW FOR PT. SAID TO CONTINUE TO MONITOR
[2020-07-03] MEDS: ACETAMINOPHEN 325 MG TABLET PO PRN (03:33)
[2020-07-03] MEDS: D5 1/2 NS W/KCL 20 MEQ/L 1,000 ML IV SCH (05:32)
[2020-07-03 07:05] LABS: ALBUMIN 2.4 GM/DL (3.2-4.5)
[2020-07-03 07:06] LABS: POTASSIUM 4.4 MMOL/L (3.6-5.0)
[2020-07-03 07:07] LABS: CALCIUM 7.8 MG/DL (8.5-10.1)
[2020-07-03 07:08] LABS: TOTAL PROTEIN 4.3 GM/DL (6.4-8.2)
[2020-07-03 07:10] LABS: BILIRUBIN,TOTAL 0.5 MG/DL (0.1-1.0)
[2020-07-03 07:12] LABS: CREATININE SERUM 1.04 MG/DL (0.60-1.30)
[2020-07-03 07:14] LABS: MAGNESIUM 1.2 MG/DL (1.6-2.4)
--- NOTE | 2020-07-03 07:42 | Progress Note - Hospitalist ---
Subjective HPI/CC On Admission Date Seen by Provider: Jul 02, 2020 Time Seen by Provider: 11:00 CC: Recurrent nausea and vomiting HPI: This is a 40yoWF clinic pt of Dr. Villarreal who has had multiple gastrointestinal problems who is set to have a pyloric dilation by Dr. Mukherjee next week who had 4 ER visits to address the nausea and vomiting. She was admitted, placed on IV fluids, potassium supplementation initiated today because its 2.[address] Mukherjee intends to do the procedure tomorrow. I restarted all of her home psych meds. Pt appears to be very chronically ill and older than 40. Subjective/Events-last exam Late entry missed note 07/02/20: Patient crying because she is hungry EGD today Monitor closely Review of Systems General: Fatigue, Malaise Focused Exam Time of Focused Exam: 07:00 Objective Exam Vital Signs Vital Signs Date Time Temp Pulse Resp B/P (MAP) Pulse Ox O2 Delivery O2 Flow Rate FiO2 07/03/20 07:00 114 07/03/20 03:34 36.9 26 92/60 (71) 100 Nasal Cannula 07/02/20 23:58 3.00 Capillary Refill : Less Than 3 SecondsLess Than 3 Seconds General Appearance: No Apparent Distress, WD/WN, Chronically ill Respiratory: Chest Non Tender, Lungs Clear, Normal Breath Sounds, No Accessory Muscle Use, No Respiratory Distress Cardiovascular: Regular Rate, Rhythm, No Edema, No Gallop, No JVD, No Murmur, Normal Peripheral Pulses Neurologic/Psychiatric: Alert, Oriented x3, No Motor/Sensory Deficits, Normal Mood/Affect Results/Procedures Lab Laboratory Tests 07/03/20 06:46 Patient resulted labs reviewed. Assessment/Plan Assessment and Plan Assess & Plan/Chief Complaint Assessment: Severe N/V refractory Pyloric stenosis Depression Chronic debility Severe hypokalemia Plan: Monitor closely Replace potassium 07/02/20: EGD today DC soon Diagnosis/Problems Diagnosis/Problems (1) Intractable nausea and vomiting Status: Acute (2) Acquired pyloric stricture Status: Acute OWEN VARELA DO Jul 03, 2020 07:42
[2020-07-03] MEDS ORDERED: NS IV 1000 ML 1,000 ML ONE (07:44)
[2020-07-03] MEDS ORDERED: NS IV 1000 ML 1,000 ML IV SCH (07:45)
[2020-07-03 07:51] LABS: BASOPHILS # (AUTO) 0.1 10^3/uL (0.0-0.1); BASOPHILS % (AUTO) 0 % (0-10); EOSINOPHILS # (AUTO) 0.1 10^3/uL (0.0-0.3); EOSINOPHILS % (AUTO) 1 % (0-10); HEMATOCRIT 33 % (35-52); HEMOGLOBIN 10.5 g/dL (11.5-16.0); LYMPHOCYTES # (AUTO) 1.1 10^3/uL (1.0-4.0); LYMPHOCYTES % (AUTO) 7 % (12-44); MEAN CORPUSCULAR HEMOGLOBIN 28 pg (25-34); MEAN CORPUSCULAR HGB CONC 32 g/dL (32-36); MEAN CORPUSCULAR VOLUME 86 fL (80-99); MEAN PLATELET VOLUME 9.8 fL (9.0-12.2); MONOCYTES # (AUTO) 0.4 10^3/uL (0.0-1.0); MONOCYTES % (AUTO) 3 % (0-12); NEUTROPHILS # (AUTO) 15.8 10^3/uL (1.8-7.8); NEUTROPHILS % (AUTO) 89 % (42-75); PLATELET COUNT 240 10^3/uL (130-400); WHITE BLOOD COUNT 17.7 10^3/uL (4.3-11.0)
[2020-07-03] MEDS: LEVOTHYROXINE 88 MCG (LEVOTHORID) TAB PO SCH (07:56)
[2020-07-03] MEDS: PROPRANOLOL 20 MG (INDERAL) TABLET PO SCH ×2 (07:56→20:15)
[2020-07-03] MEDS: PANTOPRAZOLE 40 MG (PROTONIX) VIAL IV SCH ×2 (07:56→20:13)
[2020-07-03] MEDS: toPIRamate 100 MG (TOPAMAX) TAB PO SCH ×3 (07:56→20:14)
--- NOTE | 2020-07-03 08:42 | Progress Note - Surgery ---
AILYN PARR MED STUDENT 07/03/20 0842: Subjective Date Seen by a Provider: Jul 03, 2020 Time Seen by a Provider: 08:36 Subjective/Events-last exam Pt awake upon entering. Pt on liquid diet. Denies dysphagia and able to keep down. Pt denies N/V, abdominal pain. Pt notes that she has been having problems with her blood pressure Dr. Fowler is aware. Pt notes BM as runny. Pt notes becoming SOB on occasion. Pt slow to answer and tends to mumble at times. Review of Systems General: Chills, Fatigue HEENT: No Head Aches, No Dysphasia Pulmonary: Dyspnea; No Cough Cardiovascular: No: Chest Pain, Palpitations Gastrointestinal: Diarrhea; No: Nausea, Vomiting, Abdominal Pain Genitourinary: No Dysuria, No Retention Musculoskeletal: No: other, neck pain, shoulder pain, arm pain, back pain, hand pain, leg pain, foot pain Neurological: No: Weakness, Numbness Focused Exam Time of Focused Exam: 07:00 Objective Exam Vital Signs Date Time Temp Pulse Resp B/P (MAP) Pulse Ox O2 Delivery O2 Flow Rate FiO2 07/03/20 08:00 36.3 108 20 92/52 (65) 97 Nasal Cannula 3.00 07/03/20 07:00 114 07/03/20 03:34 36.9 108 26 92/60 (71) 100 Nasal Cannula 07/03/20 01:00 110 07/03/20 00:24 90/52 (65) 07/02/20 23:58 37.0 111 18 88/62 (71) 97 Nasal Cannula 3.00 07/02/20 20:35 Nasal Cannula 3.00 07/02/20 20:30 36.4 115 20 94/52 (66) 96 Nasal Cannula 3.00 07/02/20 19:00 116 07/02/20 16:50 36.0 96 20 97/63 (74) 89 Nasal Cannula 10.00 07/02/20 15:08 36.0 92 20 103/69 (80) 92 OxyMask 5.00 5.00 07/02/20 13:35 98 20 100 OxyMask 5 07/02/20 13:30 100 20 100 5 07/02/20 13:25 101 20 100 OxyMask 10 07/02/20 13:20 102 20 98 OxyMask 10 07/02/20 13:15 108 20 98 OxyMask 10 07/02/20 12:00 36.0 83 18 99/54 (69) 97 Room Air 07/02/20 09:30 90/63 (72) I & O 07/03/20 07:00 Intake Total 3410 ml Output Total 1550 ml Balance 1860 ml Capillary Refill : Less Than 3 SecondsLess Than 3 Seconds General Appearance: No Apparent Distress, WD/WN, Chronically ill HEENT: PERRL/EOMI Neck: Normal Inspection, Non Tender, Supple Respiratory: Chest Non Tender, Lungs Clear, Normal Breath Sounds, No Accessory Muscle Use, No Respiratory Distress Cardiovascular: Regular Rate, Rhythm, No Edema, No Gallop, No JVD, No Murmur, Normal Peripheral Pulses Peripheral Pulses: 2+ Radial Pulses (R), 2+ Radial Pulses (L) Gastrointestinal: non tender, soft, no organomegaly Extremity: Normal Capillary Refill, Normal Inspection, Normal Range of Motion, Non Tender, No Calf Tenderness, No Pedal Edema Neurologic/Psychiatric: Alert, Oriented x3, No Motor/Sensory Deficits, Depressed Affect Skin: Normal Color, Warm/Dry Lymphatic: No Adenopathy (cervical, inguinal, or axila) Results Lab Laboratory Tests 07/03/20 06:46: Sodium Level 131L, Potassium Level 4.4, Chloride Level 108H, Carbon Dioxide Level 15L, Anion Gap 8, Blood Urea Nitrogen 8, Creatinine 1.04, Estimat Glomerular Filtration Rate 58, BUN/Creatinine Ratio 8, Glucose Level 133H, Calcium Level 7.8L, Corrected Calcium 9.1, Magnesium Level 1.2L, Total Bilirubin 0.5, Aspartate Amino Transf (AST/SGOT) 47H, Alanine Aminotransferase (ALT/SGPT) 64H, Alkaline Phosphatase 78, Total Protein 4.3L, Albumin 2.4L 07/03/20 07:40: White Blood Count 17.7H, Red Blood Count 3.80, Hemoglobin 10.5L, Hematocrit 33L, Mean Corpuscular Volume 86, Mean Corpuscular Hemoglobin 28, Mean Corpuscular Hemoglobin Concent 32, Red Cell Distribution Width 12.6, Platelet Count 240, Mean Platelet Volume 9.8, Immature Granulocyte % (Auto) 1, Neutrophils (%) (Auto) 89H, Lymphocytes (%) (Auto) 7L, Monocytes (%) (Auto) 3, Eosinophils (%) (Auto) 1, Basophils (%) (Auto) 0, Neutrophils # (Auto) 15.8H, Lymphocytes # (Auto) 1.1, Monocytes # (Auto) 0.4, Eosinophils # (Auto) 0.1, Basophils # (Auto) 0.1, Immature Granulocyte # (Auto) 0.2H Microbiology 07/01/20 MRSA Screen - Final, Complete MRSA not isolated 06/30/20 Urine Culture - Final, Complete >=3 Gram Positive Isolates Assessment/Plan Assessment/Plan Assessment/Plan Dehydration Hx of pyloric/duodenal stenosis requiring dilation HILLARY -resolved UTI Hypokalemia improved, K 4.4 this AM Continue IV fluids, zofran for nausea Caftriaxone for UTI Replace potassium as needed EGD with possible dilation performed- pyloric stenosis Encourage ambulation and IS, DVT and GI ppx DEVI MCCONNELL DO 07/03/20 1545: Subjective Subjective/Events-last exam Patient states that she is doing okay. She is tolerating liquid diet and having no difficulty drinking. She is not having nausea or vomiting. She does not have any abdominal pain she states. Patient blood pressure has been low but on the low side. Her WBC is elevated. She is having some shortness of breath. She has no other complaints at this time. She denies any nausea vomiting fever sweats chills or chest pain at this time. Objective Exam General Appearance: No Apparent Distress, Chronically ill HEENT: PERRL/EOMI Neck: Normal Inspection, Non Tender, Supple Respiratory: Chest Non Tender, No Accessory Muscle Use, No Respiratory Distress Cardiovascular: No JVD, Tachycardia Gastrointestinal: non tender, soft; No guarding, No rebound Extremity: Non Tender Neurologic/Psychiatric: Alert, Oriented x3, No Motor/Sensory Deficits, Depressed Affect Skin: Normal Color, Warm/Dry Lymphatic: No Adenopathy Assessment/Plan Assessment/Plan Assessment/Plan Dehydration Hx of pyloric/duodenal stenosis s/p EGD with biospy yesterday no dilatation done HILLARY -resolved UTI Hypokalemia Sepsis likely from UTI No abdominal pain Continue IV fluids, zofran for nausea Diflucan/Meropenem Replace electrolytes as needed. Encourage ambulation and IS, DVT and GI ppx Patient transferred to ICU. Will place central line Patient without abdominal pain doubt perforation but ct with oral contrast to evaluate. Procedure: Right internal jugular vein ultrasound-guided central line placement Patient was prepped and draped in a sterile fashion. Timeout was performed. Ultrasound was used to isolate the right internal jugular vein and local anesthetic was infiltrated. A total of 3 mL of 1% lidocaine. Under ultrasound guidance the right internal jugular vein was accessed dark nonpulsatile blood was withdrawn. The wire was inserted through the needle and the needle was removed. 11 blade scalpel was used to make a small skin incision at the insertion point. The dilator was then advanced over the wire and removed. The triple-lumen catheter was inserted over the guidewire and the wire was removed. The catheter was then secured using 3-0 silk suture. All ports were accessed and flushed without difficulty. The area was washed and dried and sterile bandage was applied. Chest x-ray pending Supervisory-Addendum Brief Verification & Attestation Participated in pt care: history, MDM, physical Personally performed: exam, history, MDM, supervision of care Care discussed with: Medical Student Procedures: n/a Results interpretation: Verified all documentation Verification and Attestation of Medical Student E/M Service A medical student performed and documented this service in my presence. I reviewed and verified all information documented by the medical student and made modifications to such information, when appropriate. I personally performed the physical exam and medical decision making. Devi Mcconnell, Jul 03, 2020,16:03 AILYN PARR MED STUDENT Jul 03, 2020 08:42 DEVI MCCONNELL DO Jul 03, 2020 15:45
[2020-07-03 08:43] LABS: BAND NEUTROPHILS 9 %; LYMPHOCYTES % (MANUAL) 6 %; MONOCYTES % (MANUAL) 2 %; NEUTROPHILS % (MANUAL) 83 %; PLATELET CLUMPS SLIGHT; RBC MORPH NORMAL
[2020-07-03] MEDS ORDERED: NS IV ONE (10:15)
[2020-07-03] MEDS ORDERED: VANCOMYCIN INJECTION 0.1 MG in NS (IVPB) 250 ML IV SCH (10:15)
[2020-07-03] MEDS ORDERED: VANCOMYCIN 750 MG/NS 250 ML IVPB IV NR ×2 (10:31)
[2020-07-03 11:09] LABS: BILIRUBIN,URINE NEGATIVE (NEGATIVE); CLARITY,URINE SL CLOUDY; COLOR,URINE YELLOW; GLUCOSE, URINE (UA) NEGATIVE (NEGATIVE); KETONES,URINE NEGATIVE (NEGATIVE); LEUKOCYTE ESTERASE ,URINE 1+ (NEGATIVE); NITRITE,URINE NEGATIVE (NEGATIVE); PROTEIN,URINE NEGATIVE (NEGATIVE)
[2020-07-03 11:16] LABS: BACTERIA,URINE TRACE /HPF; SQUAMOUS EPITHELIAL CELL,UR >50 /HPF; YEAST,URINE FEW /HPF
--- NOTE | 2020-07-03 11:26 | NUR ---
REPORT GIVEN TO KARSTEN SOLER AT THIS TIME. PATIENT TRANSPORTED TO ICU-2 VIA CHAIR ACCOMPANIED BY THIS RN.
--- NOTE | 2020-07-03 11:37 | Pulmonary Consultation ---
History of Present Illness History of Present Illness Date Seen by Provider: Jul 03, 2020 Time Seen by Provider: 11:32 Date of Admission History of Present Illness 40yo with hx of chronic GI complaints admitted on 06/30 and is now s/p pyloric dilation per Dr. Mukherjee 07/02. Pt is being transferred to ICU secondary to acute sepsis, tachycardia and hypotension. Pt denies abdominal pain Allergies and Home Medications Allergies Coded Allergies: zolmitriptan (Verified Adverse Reaction, Unknown, 09/29/19) Home Medications Aspirin/Acetaminophen/Caffeine 1 Each Tablet, 2 EACH PO Q6-8HR PRN for Headache, (Reported) Cetirizine HCl 10 Mg Tablet, 10 MG PO HS, (Reported) Citalopram Hydrobromide 40 Mg Tablet, 40 MG PO HS, (Reported) Ergocalciferol (Vitamin D2) 1,250 Mcg Capsule, 1,250 MCG PO WEEK, (Reported) Ferrous Sulfate 325 Mg Tablet, 325 MG PO DAILY, (Reported) Levothyroxine Sodium 88 Mcg Tablet, 88 MCG PO DAILY, (Reported) Montelukast Sodium 10 Mg Tablet, 10 MG PO HS, (Reported) Ondansetron 8 Mg Tab.rapdis, 8 MG PO Q8H PRN for NAUSEA/VOMITING-1ST LINE, (Reported) Pantoprazole Sodium 20 Mg Tablet.dr, 20 MG PO BID, (Reported) Potassium Chloride 10 Meq Tablet.er, 10 MEQ PO DAILY, (Reported) Propranolol HCl 20 Mg Tablet, 20 MG PO BID, (Reported) Sucralfate 1 Gm Tablet, 1 GM PO DAILY, (Reported) Topiramate 100 Mg Tablet, 100 MG PO TID, (Reported) Past S[place]-[place] Hx Past Med/Social Hx: Reviewed Nursing Past Med/Soc Hx, Reviewed and Corrections made Patient Social History Alcohol Use: Denies Use Smoking Status: Former Smoker Type Used: Cigarettes Former Smoker, Quit: October 17, 2017 2nd Hand Smoke Exposure: No Recent Infectious Disease Expo: No Recent Hopitalizations: No Have you traveled recently?: No Alcohol Use?: No Immunizations Up To Date Date of Influenza Vaccine: Mar 13, 2020 Seasonal Allergies Seasonal Allergies: Yes Past Medical History Surgeries: Yes Gallbladder Respiratory: No Cardiac: No Neurological: Yes Headaches /Migraines : No Genitourinary: No Gastrointestinal: Yes (chronic gastritis, pyloric stenosis) Musculoskeletal: No Endocrine: Yes Hypothyroidsim HEENT: No Cancer: No Psychosocial: Yes Depression Integumentary: No Blood Disorders: No Family Medical History Cancer (lung-grandma), Diabetes (grandma) Review of Systems Time Seen by Provider: 10:04 Sepsis Event Evaluation Height, Weight, BMI Height: 5'3.00" Weight: 160lbs. 0oz. 72.679669my; 11.79 BMI Method:Stated Exam Exam Vital Signs Date Time Temp Pulse Resp B/P (MAP) Pulse Ox O2 Delivery O2 Flow Rate FiO2 07/03/20 08:00 97 Nasal Cannula 3.00 07/03/20 08:00 36.3 108 20 92/52 (65) 97 Nasal Cannula 3.00 07/03/20 07:00 114 07/03/20 03:34 36.9 108 26 92/60 (71) 100 Nasal Cannula 07/03/20 01:00 110 07/03/20 00:24 90/52 (65) 07/02/20 23:58 37.0 111 18 88/62 (71) 97 Nasal Cannula 3.00 07/02/20 20:35 Nasal Cannula 3.00 07/02/20 20:30 36.4 115 20 94/52 (66) 96 Nasal Cannula 3.00 07/02/20 19:00 116 07/02/20 16:50 36.0 96 20 97/63 (74) 89 Nasal Cannula 10.00 07/02/20 15:08 36.0 92 20 103/69 (80) 92 OxyMask 5.00 5.00 07/02/20 13:35 98 20 100 OxyMask 5 07/02/20 13:30 100 20 100 5 07/02/20 13:25 101 20 100 OxyMask 10 07/02/20 13:20 102 20 98 OxyMask 10 07/02/20 13:15 108 20 98 OxyMask 10 07/02/20 12:00 36.0 83 18 99/54 (69) 97 Room Air I & O 07/03/20 07:00 Intake Total 3410 ml Output Total 1550 ml Balance 1860 ml Height & Weight Height: 5'3.00" Weight: 160lbs. 0oz. 72.067135hr; 11.79 BMI Method:Stated General Appearance: WD/WN, Anxious, Chronically ill HEENT: PERRL/EOMI Neck: Normal Inspection, Non Tender, Supple Respiratory: Chest Non Tender, Lungs Clear, Normal Breath Sounds, No Accessory Muscle Use, No Respiratory Distress Cardiovascular: Regular Rate, Rhythm, No Edema, No Gallop, No JVD, No Murmur, Normal Peripheral Pulses Capillary Refill: Less Than 3 Seconds Peripheral Pulses: 2+ Radial Pulses (R), 2+ Radial Pulses (L) Gastrointestinal: non tender, soft, no organomegaly Extremity: Normal Capillary Refill, Normal Inspection, Normal Range of Motion, Non Tender, No Calf Tenderness, No Pedal Edema Neurologic/Psychiatric: Alert, Oriented x3, No Motor/Sensory Deficits, Depressed Affect Skin: Normal Color, Warm/Dry Lymphatic: No Adenopathy (cervical, inguinal, or axila) Results Lab Laboratory Tests 07/02/20 05:55 07/03/20 06:46 07/03/20 07:40 Assessment/Plan Assessment/Plan Acute sepsis probably secondary to UTI -Give a liter bolus of LR -Vasquez cultures -Start Vanco, Diflucan, and Merrem Hypotension -Give a liter of LR -Then LR at 150ml/hr Pyloric stenosis s/p dilation 07/[address] Mukherjee -Stat CT of chest abd/pelvis with PO and IV contrast r/o perforation Metabolic lactic acidosis -IVF -Monitor UTI -Continue Abx and Diflucan Anemia -Monitor -Protonix Hypomag -Replace Hyponatremia -Monitor Elevated LFTs -Monitor -Check Hep panel Hypothyroid -Continue Synthroid Depression Chronic debility TOREY JJ DO Jul 03, 2020 11:37
[2020-07-03] MEDS ORDERED: LACTATED RINGERS 1,000 ML IV SCH ×2 (11:45→13:00)
[2020-07-03] MEDS ORDERED: FLUCONAZOLE 200 MG/100 ML 100 ML IV ONE (12:00)
[2020-07-03 12:46] LABS: ABG BASE EXCESS -7.5 MMOL/L (-2.5-2.5); ABG OXYGEN SATURATION 98 % (94-100); ABG PCO2 30 MMHG (35-45); ABG PH 7.37 (7.37-7.43); ABG PO2 121 MMHG (79-93); ABG TCO2 17.7 MMOL/L (21.0-31.0)
[2020-07-03 12:50] LABS: ALLENS TEST YES-POS; INSPIRED O2 2L; PATIENT TEMP 37.1; VENTILATOR NO
[2020-07-03] MEDS: MAGNESIUM 1 GM/100 ML IVPB 100 ML IV SCH ×3 (13:00→16:00)
--- NOTE | 2020-07-03 13:02 | Progress Note - Hospitalist ---
Subjective HPI/CC On Admission Date Seen by Provider: Jul 03, 2020 Time Seen by Provider: 11:00 CC: Recurrent nausea and vomiting HPI: This is a 40yoWF clinic pt of Dr. Villarreal who has had multiple gastrointestinal problems who is set to have a pyloric dilation by Dr. Mukherjee next week who had 4 ER visits to address the nausea and vomiting. She was admitted, placed on IV fluids, potassium supplementation initiated today because its 2.[address] Mukherjee intends to do the procedure tomorrow. I restarted all of her home psych meds. Pt appears to be very chronically ill and older than 40. Subjective/Events-last exam Required move to ICU due to evidence of severe sepsis Patient continued to lie on her left side and not move around at all during the entire hospital stay and now it appears she has a left sided PNA Patient very fragile emotionally and cries a lot Very frail overall for 40yo CT scan will be performed to evaluate for perforation from pyloric dilitation Appreciate Dr Mathews and Dr Mcconnell Review of Systems General: Fatigue, Malaise Focused Exam Lactate Level 07/03/20 16:00: Lactic Acid Level 3.12*H 07/03/20 18:30: Lactic Acid Level 3.71*H 07/03/20 23:30: Lactic Acid Level 1.43 Time of Focused Exam: 07:00 Lactic Acid Level Objective Exam Vital Signs Vital Signs Date Time Temp Pulse Resp B/P (MAP) Pulse Ox O2 Delivery O2 Flow Rate FiO2 07/04/20 06:00 99 18 92/56 (68) 95 Nasal Cannula 2.00 07/04/20 04:00 36.6 Capillary Refill : Less Than 3 SecondsLess Than 3 Seconds General Appearance: WD/WN, Anxious, Chronically ill, Mild Distress Respiratory: No Accessory Muscle Use, No Respiratory Distress, Crackles, Decreased Breath Sounds Cardiovascular: Regular Rate, Rhythm Neurologic/Psychiatric: Alert, Oriented x3, No Motor/Sensory Deficits, Depressed Affect Results/Procedures Lab Laboratory Tests 07/03/20 07:40 07/04/20 01:50 Patient resulted labs reviewed. Assessment/Plan Assessment and Plan Assess & Plan/Chief Complaint Assessment: Severe sepsis due to left sided PNA HAP type from non-ambulatory during hospital stay and remaining on her left side every time I assessed her Severe N/V refractory Pyloric stenosis Depression Chronic debility Severe hypokalemia Severe emotional problems Plan: Monitor closely Replace potassium 07/02/20: EGD today DC soon 07/03/20: Move to ICU Severe sepsis from left sided PNA Monitor closely IV abx Diagnosis/Problems Diagnosis/Problems (1) Intractable nausea and vomiting Status: Acute (2) Acquired pyloric stricture Status: Acute OWEN VARELA DO Jul 03, 2020 13:02
[2020-07-03] MEDS ORDERED: MEROPENEM 500 MG VIAL (MERREM) IV ONE ×3 (13:53→22:52)
[2020-07-03] MEDS ORDERED: WATER (STERILE) FOR INJECTION 10 ML ONE ×3 (13:53→22:52)
[2020-07-03] MEDS: LACTATED RINGERS 1,000 ML IV SCH ×2 (13:54→20:59)
[2020-07-03] MEDS: MEROPENEM 500 MG in WATER (STERILE) FOR INJECTION 10 ML IV SCH ×3 (13:59→23:31)
--- NOTE | 2020-07-03 15:03 | NUR ---
Vancomycin - Due to significant wt change, 30kg to 83kg, requires dose changes. Loading dose to 1750mg over 2 hours x 1 then 1250mg every 12 hours. Using her adjusted bodywt to calculate crcl (75ml/min).
[2020-07-03] MEDS ORDERED: VANCOMYCIN 1,750 MG/NS 500 ML IVPB IV NR ×2 (16:00)
[2020-07-03] MEDS ORDERED: CATHETER FLUSH 10 ML SYR IV PRN (16:45)
[2020-07-03] MEDS ORDERED: HOLD METFORMIN - RECEIVED CONTRAST 20 ML VIAL IV SCH (16:45)
[2020-07-03] MEDS ORDERED: NS 100 ML (IVPB) BAG IV ONE (16:45)
[2020-07-03] MEDS ORDERED: DIATRIZOATE MEGLUM/SODIUM 37% 120 ML (GASTROGRAFIN) PO ONE (16:45)
[2020-07-03] MEDS ORDERED: IOHEXOL 350 MG/ML 100 ML (OMNIPAQUE 350) VIAL IV ONE (16:45)
--- NOTE | 2020-07-03 16:46 | Diagnostic Imaging Report ---
INDICATION: Sepsis, line placement. COMPARISON: 07/02/2020. TECHNIQUE: Single radiograph of the chest dated July 03, 2020. FINDINGS: Interval placement of right IJ central venous catheter with the distal tip overlying the mid aspect of the superior vena cava. No evidence of pneumothorax. Cardiac silhouette is within normal limits in size. No significant pulmonary vascular congestion. Significantly increasing opacities throughout the left lung, particularly medially. No focal right lung opacity. No significant pleural effusion. No pneumothorax. No acute osseous abnormality. IMPRESSION: 1. Interval placement of a right IJ central venous catheter with the distal tip overlying the mid aspect of the superior vena cava without pneumothorax. 2. Worsening extensive left pulmonary infiltrates, concerning for pneumonia. Recommend radiographic follow-up to ensure clearance. Dictated by: Dictated on workstation # [id number]
--- NOTE | 2020-07-03 17:09 | Diagnostic Imaging Report ---
EXAMINATION: CT chest, abdomen and pelvis with intravenous contrast. TECHNIQUE: Multiple contiguous axial images were obtained through the chest, abdomen and pelvis after the uneventful administration of intravenous contrast. All CT scans use one or more of the following dose optimizing techniques: automated exposure control, MA and/or KvP adjustment based on patient size and exam type or iterative reconstruction. HISTORY: Recent pyloric dilation. Evaluate for perforation. COMPARISON: 06/13/2020. FINDINGS: CT chest: The heart size is within normal limits. No pericardial effusion is present. Right-sided central line is visualized, the tip in the low SVC. There is no mediastinal, hilar or axillary lymphadenopathy. Patchy opacities are seen throughout the right lung. A small right pleural effusion is seen. No pneumothorax. No central endobronchial obstructing lesions. The osseous structures demonstrate no acute abnormalities. CT abdomen/pelvis: The stomach is distended with oral contrast. There is marked stenosis of the pylorus. No evidence of perforation is seen. No bowel obstruction. Trace physiologic free fluid is seen in the lower pelvis. No evidence of free air. The liver, spleen, pancreas, adrenal glands and kidneys have a normal appearance. The gallbladder is surgically absent. There is no pathologically enlarged mesenteric or retroperitoneal adenopathy. The osseous structures demonstrate no acute abnormalities. The urinary bladder is decompressed with a Paiz in place. There is no free air, loculated collection, or adenopathy in the pelvis. IMPRESSION: 1. Stenosis of the pylorus without evidence of perforation. The stomach is distended with oral contrast. 2. Patchy opacities throughout the left lung with small left pleural effusion. This may represent inflammatory or infectious etiology. Dictated by: Dictated on workstation # [id number]
[2020-07-03] MEDS: NS IV 1000 ML 1,000 ML IV SCH ×3 (17:58→18:04)
[2020-07-03] MEDS ORDERED: LACTATED RINGERS 1,000 ML IV ONE (18:30)
[2020-07-03] MEDS: MONTELUKAST 10 MG (SINGULAIR) TAB PO SCH (20:14)
[2020-07-03] MEDS: LORATADINE (CLARITIN) 10 MG TAB PO SCH (20:14)
[2020-07-03] MEDS: NOREPINEPHRINE 4 MG/250 ML 250 ML IV SCH (20:25)
[2020-07-03] MEDS: HYDROCORTISONE 100 MG/2 ML (Solu-CORTEF) VIAL IV SCH (23:31)
[2020-07-04] VITALS (25 sets, daily range): BP systolic 83–106; BP diastolic 50–91
[2020-07-04] MEDS: LACTATED RINGERS 1,000 ML IV SCH ×4 (01:53→21:32)
[2020-07-04 02:09] LABS: BASOPHILS % (AUTO) 0 % (0-10); EOSINOPHILS # (AUTO) 0.1 10^3/uL (0.0-0.3); EOSINOPHILS % (AUTO) 0 % (0-10); HEMATOCRIT 31 % (35-52); HEMOGLOBIN 9.8 g/dL (11.5-16.0); LYMPHOCYTES # (AUTO) 0.7 10^3/uL (1.0-4.0); LYMPHOCYTES % (AUTO) 4 % (12-44); MEAN CORPUSCULAR HEMOGLOBIN 27 pg (25-34); MEAN CORPUSCULAR HGB CONC 31 g/dL (32-36); MEAN CORPUSCULAR VOLUME 85 fL (80-99); MEAN PLATELET VOLUME 9.5 fL (9.0-12.2); MONOCYTES # (AUTO) 0.3 10^3/uL (0.0-1.0); MONOCYTES % (AUTO) 2 % (0-12); NEUTROPHILS # (AUTO) 17.5 10^3/uL (1.8-7.8); NEUTROPHILS % (AUTO) 90 % (42-75); PLATELET COUNT 231 10^3/uL (130-400); WHITE BLOOD COUNT 19.5 10^3/uL (4.3-11.0)
[2020-07-04 02:22] LABS: CHLORIDE 110 MMOL/L (98-107); POTASSIUM 3.6 MMOL/L (3.6-5.0); SODIUM 136 MMOL/L (135-145)
[2020-07-04 02:23] LABS: CALCIUM 7.8 MG/DL (8.5-10.1)
[2020-07-04 02:24] LABS: GLUCOSE 103 MG/DL (70-105)
[2020-07-04 02:25] LABS: CARBON DIOXIDE 20 MMOL/L (21-32)
[2020-07-04 02:27] LABS: PHOSPHORUS 1.4 MG/DL (2.3-4.7)
[2020-07-04 02:28] LABS: CREATININE SERUM 0.85 MG/DL (0.60-1.30); GFR ESTIMATED > 60
[2020-07-04 02:29] LABS: BUN/CREATININE RATIO 11
[2020-07-04 02:30] LABS: MAGNESIUM 1.7 MG/DL (1.6-2.4)
[2020-07-04] MEDS: NOREPINEPHRINE 4 MG/250 ML 250 ML IV SCH ×3 (03:26→19:16)
[2020-07-04] MEDS: POTASSIUM CL 10MEQ/50ML IVPB 50 ML IV SCH ×2 (03:56→05:40)
[2020-07-04] MEDS: KCL 20 MEQ TAB (K-DUR) PO SCH (03:56)
[2020-07-04] MEDS: MAGNESIUM 1 GM/100 ML IVPB 100 ML IV SCH ×3 (03:56→05:43)
[2020-07-04] MEDS ORDERED: VANCOMYCIN 1250 MG/NS 250 ML IVPB IV SCH ×2 (04:00)
--- NOTE | 2020-07-04 04:13 | Pulmonary Progress Note ---
Subjective Time Seen by a Provider: 04:07 Sepsis Event Evaluation Height, Weight, BMI Height: 5'3.00" Weight: 160lbs. 0oz. 72.964169pw; 11.79 BMI Method:Stated Focused Exam Lactate Level 07/03/20 16:00: Lactic Acid Level 3.12*H 07/03/20 18:30: Lactic Acid Level 3.71*H 07/03/20 23:30: Lactic Acid Level 1.43 Time of Focused Exam: 07:00 Exam Exam Vital Signs Date Time Temp Pulse Resp B/P (MAP) Pulse Ox O2 Delivery O2 Flow Rate FiO2 07/03/20 23:30 36.6 07/03/20 23:00 112 95/55 (68) 96 Nasal Cannula 2.00 07/03/20 22:00 106 97/59 (72) 96 Nasal Cannula 2.00 07/03/20 21:00 116 94/35 (54) 94 Nasal Cannula 2.00 07/03/20 20:30 36.5 Nasal Cannula 2.00 07/03/20 20:25 105 93/60 07/03/20 20:00 97 Nasal Cannula 3.00 07/03/20 20:00 105 93/60 (71) 99 Nasal Cannula 2.00 07/03/20 19:00 107 07/03/20 19:00 107 80/57 (65) 99 Nasal Cannula 2.00 07/03/20 18:00 111 117/77 (90) 99 Nasal Cannula 6.00 07/03/20 17:00 112 90 Nasal Cannula 3.00 07/03/20 16:00 109 136/77 (96) 100 Nasal Cannula 3.00 07/03/20 15:00 109 99/80 (86) 97 Nasal Cannula 3.00 07/03/20 14:00 110 90/63 (72) 90 Nasal Cannula 3.00 07/03/20 13:00 112 90/62 (71) 94 Nasal Cannula 3.00 07/03/20 08:00 97 Nasal Cannula 3.00 07/03/20 08:00 36.3 108 20 92/52 (65) 97 Nasal Cannula 3.00 07/03/20 07:00 114 I & O 07/04/20 07:00 Intake Total 6037.5 ml Output Total 2150 ml Balance 3887.5 ml Height & Weight Height: 5'3.00" Weight: 160lbs. 0oz. 72.876039dw; 11.79 BMI Method:Stated General Appearance: No Apparent Distress, Chronically ill HEENT: PERRL/EOMI Neck: Normal Inspection, Non Tender, Supple Respiratory: Chest Non Tender, No Accessory Muscle Use, No Respiratory Distress Cardiovascular: No JVD, Tachycardia Capillary Refill: Less Than 3 Seconds Peripheral Pulses: 2+ Radial Pulses (R), 2+ Radial Pulses (L) Gastrointestinal: non tender, soft; No guarding, No rebound Extremity: Non Tender Neurologic/Psychiatric: Alert, Oriented x3, No Motor/Sensory Deficits, Depressed Affect Skin: Normal Color, Warm/Dry Lymphatic: No Adenopathy Results Lab Laboratory Tests 07/02/20 05:55 07/03/20 06:46 07/03/20 07:40 07/04/20 01:50 Assessment/Plan Assessment/Plan Acute sepsis probably secondary to UTI and PNA -Give a liter bolus of LR -Vasquez cultures - Diflucan, and Merrem, Vanco -Change to Zosyn, Flagyl and Diflucan -MRSA swab is negative Aspiration PNA during Pyloric dilation per anesthesia -CXR appears worse today -Change Abx Zosyn, and Diflucan Diarrhea -Add Flagyl -CDiff pending Hypotension -Give a liter of LR -Then LR at 150ml/hr Pyloric stenosis s/p dilation 07/[address] Mukherjee -CT reviwed Metabolic lactic acidosis -IVF -Monitor UTI -Continue Abx and Diflucan Anemia -Monitor -Protonix Hypomag -Replace Hyponatremia -Monitor Elevated LFTs -Monitor -Check Hep panel Hypothyroid -Continue Synthroid Depression Chronic debility TOREY JJ DO Jul 04, 2020 04:13
[2020-07-04] MEDS ORDERED: PIPERACILLIN/TAZOBACTAM (BULK) 4.5 GM in NS (IVPB) 100 ML IV ONE (04:30)
[2020-07-04] MEDS ORDERED: metroNIDAZOLE 500MG/100ML IVPB 100 ML ONE (05:18)
[2020-07-04] MEDS ORDERED: NS (IVPB) 100 ML ONE (05:21)
[2020-07-04] MEDS ORDERED: PIPERACILLIN/TAZO 4.5 GM VIAL (ZOSYN) IV ONE (05:21)
[2020-07-04] MEDS: HYDROCORTISONE 100 MG/2 ML (Solu-CORTEF) VIAL IV SCH ×3 (05:43→18:22)
[2020-07-04] MEDS: metroNIDAZOLE 500MG/100ML IVPB 100 ML IV SCH ×3 (05:49→21:30)
[2020-07-04] MEDS ORDERED: metroNIDAZOLE 500MG/100ML IVPB 250 MG in EMPTY IV BAG (PVC) 1 EA IV SCH (06:00)
--- NOTE | 2020-07-04 07:19 | NUR ---
THIS RN NOTIFIED DR. JJ OF HYPOTENSION WITH SBP IN 70-80'S, NEW ORDER RECEIVED FOR 1L LR BOLUS X1 NOW.
[2020-07-04] MEDS ORDERED: LACTATED RINGERS 1,000 ML IV ONE (07:30)
[2020-07-04] MEDS: PANTOPRAZOLE 40 MG (PROTONIX) VIAL IV SCH ×2 (08:31→21:30)
[2020-07-04] MEDS: LEVOTHYROXINE 88 MCG (LEVOTHORID) TAB PO SCH (08:31)
[2020-07-04] MEDS: ENOXAPARIN 40 MG/0.4 ML (LOVENOX) SYR SC SCH (08:31)
[2020-07-04] MEDS: toPIRamate 100 MG (TOPAMAX) TAB PO SCH ×3 (08:31→21:31)
--- NOTE | 2020-07-04 08:47 | Diagnostic Imaging Report ---
EXAMINATION: Chest 1 view HISTORY: Sepsis COMPARISON: 07/03/2020 FINDINGS: Right internal jugular central venous catheter tip terminates in the superior vena cava. Left-sided airspace opacities are most consistent with pneumonia. No pleural effusion or pneumothorax. Heart size is normal. IMPRESSION: 1. Stable left-sided airspace opacities most consistent with pneumonia. Dictated by: Dictated on workstation # [id number]
[2020-07-04] MEDS: PROPRANOLOL 20 MG (INDERAL) TABLET PO SCH ×2 (08:56→21:31)
[2020-07-04] MEDS: PIPERACILLIN/TAZOBACTAM (BULK) 4.5 GM in NS (IVPB) 100 ML IV SCH ×2 (08:57→18:23)
[2020-07-04] MEDS ORDERED: POTASSIUM PHOSPHATE INJ 30 MM in NS (IVPB) 250 ML IV ONE (09:00)
[2020-07-04] MEDS: FLUCONAZOLE 200 MG/100 ML 50 ML, EMPTY IV BAG (PVC) 1 EA IV SCH ×2 (09:00)
[2020-07-04] MEDS ORDERED: LOPERAMIDE 2 MG (IMODIUM) TABLET ONE (09:02)
[2020-07-04] MEDS: LOPERAMIDE 2 MG (IMODIUM) TABLET PO PRN (09:02)
[2020-07-04] MEDS ORDERED: VANCOMYCIN 500 MG/NS 100 ML IV SCH ×2 (12:00)
--- NOTE | 2020-07-04 12:39 | Progress Note - Hospitalist ---
Subjective HPI/CC On Admission Date Seen by Provider: Jul 04, 2020 Time Seen by Provider: 12:00 CC: Recurrent nausea and vomiting HPI: This is a 40yoWF clinic pt of Dr. Villarreal who has had multiple gastrointestinal problems who is set to have a pyloric dilation by Dr. Mukherjee next week who had 4 ER visits to address the nausea and vomiting. She was admitted, placed on IV fluids, potassium supplementation initiated today because its 2.[address] Mukherjee intends to do the procedure tomorrow. I restarted all of her home psych meds. Pt appears to be very chronically ill and older than 40. Subjective/Events-last exam Patient much better Able to carry on a conversation today Improved status Pressors still on board Diarrhea but c diff negative Abx maintained Monitoring closely Review of Systems General: Fatigue, Malaise Pulmonary: Cough Focused Exam Lactate Level 07/03/20 16:00: Lactic Acid Level 3.12*H 07/03/20 18:30: Lactic Acid Level 3.71*H 07/03/20 23:30: Lactic Acid Level 1.43 Time of Focused Exam: 07:00 Objective Exam Vital Signs Vital Signs Date Time Temp Pulse Resp B/P (MAP) Pulse Ox O2 Delivery O2 Flow Rate FiO2 07/04/20 18:00 98 106/69 (81) 97 Nasal Cannula 2.00 07/04/20 12:52 35.8 07/04/20 06:00 18 Capillary Refill : Less Than 3 SecondsLess Than 3 Seconds General Appearance: No Apparent Distress, WD/WN, Chronically ill Respiratory: Chest Non Tender, Lungs Clear, Normal Breath Sounds, No Accessory Muscle Use, No Respiratory Distress, Decreased Breath Sounds Cardiovascular: Regular Rate, Rhythm, No Edema, No Gallop, No JVD, No Murmur, Normal Peripheral Pulses Neurologic/Psychiatric: Alert, Oriented x3, No Motor/Sensory Deficits, Normal Mood/Affect Results/Procedures Lab Laboratory Tests 07/04/20 01:50 Patient resulted labs reviewed. Assessment/Plan Assessment and Plan Assess & Plan/Chief Complaint Assessment: Severe sepsis due to left sided PNA HAP type from non-ambulatory during hospital stay and remaining on her left side every time I assessed her Severe N/V refractory Pyloric stenosis Depression Chronic debility Severe hypokalemia Severe emotional problems Plan: Monitor closely Replace potassium 07/02/20: EGD today DC soon 07/03/20: Move to ICU Severe sepsis from left sided PNA Monitor closely IV abx 07/04/20: PNA treatment IVF Hypotension continues Diagnosis/Problems Diagnosis/Problems (1) Intractable nausea and vomiting Status: Acute (2) Acquired pyloric stricture Status: Acute OWEN VARELA DO Jul 04, 2020 12:38
--- NOTE | 2020-07-04 13:29 | Progress Note - Surgery ---
AILYN PARR MED STUDENT 07/04/20 1329: Subjective Date Seen by a Provider: Jul 04, 2020 Time Seen by a Provider: 13:24 Subjective/Events-last exam Pt awake and lying in bed upon entering. Pt c/o cough. Currently has rectal tube in place. No acute events over night. Review of Systems General: No Chills, No Night Sweats HEENT: No Head Aches, No Sinus Congestion Pulmonary: Cough Cardiovascular: No: Chest Pain, Palpitations Gastrointestinal: Diarrhea; No: Nausea, Vomiting, Abdominal Pain Genitourinary: No Dysuria, No Frequency Musculoskeletal: No: back pain, leg pain Neurological: No: Numbness, Confusion Focused Exam Lactate Level 07/03/20 16:00: Lactic Acid Level 3.12*H 07/03/20 18:30: Lactic Acid Level 3.71*H 07/03/20 23:30: Lactic Acid Level 1.43 Time of Focused Exam: 07:00 Objective Exam Vital Signs Date Time Temp Pulse Resp B/P (MAP) Pulse Ox O2 Delivery O2 Flow Rate FiO2 07/04/20 13:00 99 07/04/20 12:52 35.8 07/04/20 12:00 95 95/68 (77) 99 Nasal Cannula 2.00 07/04/20 11:00 92 90/50 (63) 99 Nasal Cannula 2.00 07/04/20 10:00 101 88/60 (69) 94 Nasal Cannula 2.00 07/04/20 09:00 95 95/58 (70) 97 Nasal Cannula 2.00 07/04/20 08:45 35.8 07/04/20 08:18 Nasal Cannula 2.00 07/04/20 08:00 99 90/53 (65) 97 Nasal Cannula 2.00 07/04/20 07:52 97 Nasal Cannula 2.00 07/04/20 07:00 93 88/57 (67) 95 Nasal Cannula 2.00 07/04/20 07:00 92 07/04/20 06:00 99 18 92/56 (68) 95 Nasal Cannula 2.00 07/04/20 06:00 99 92/56 (68) 96 Nasal Cannula 2.00 07/04/20 05:39 101 18 94/63 (73) 97 Nasal Cannula 2.00 07/04/20 05:00 98 83/50 (61) 96 Nasal Cannula 2.00 07/04/20 04:00 108 92/55 (67) 96 Nasal Cannula 2.00 07/04/20 04:00 36.6 07/04/20 03:00 101 89/51 (64) 92 Nasal Cannula 2.00 07/04/20 02:00 107 92/53 (66) 96 Nasal Cannula 2.00 07/04/20 01:00 107 07/04/20 01:00 108 106/91 (96) 93 Nasal Cannula 2.00 07/04/20 00:00 109 92/58 (69) 91 Nasal Cannula 2.00 07/03/20 23:30 36.6 07/03/20 23:00 112 95/55 (68) 96 Nasal Cannula 2.00 07/03/20 22:00 106 97/59 (72) 96 Nasal Cannula 2.00 07/03/20 21:00 116 94/35 (54) 94 Nasal Cannula 2.00 07/03/20 20:30 36.5 Nasal Cannula 2.00 07/03/20 20:25 105 93/60 07/03/20 20:00 97 Nasal Cannula 3.00 07/03/20 20:00 105 93/60 (71) 99 Nasal Cannula 2.00 07/03/20 19:00 107 07/03/20 19:00 107 80/57 (65) 99 Nasal Cannula 2.00 07/03/20 18:00 111 117/77 (90) 99 Nasal Cannula 6.00 07/03/20 17:00 112 90 Nasal Cannula 3.00 07/03/20 16:00 109 136/77 (96) 100 Nasal Cannula 3.00 07/03/20 15:00 109 99/80 (86) 97 Nasal Cannula 3.00 07/03/20 14:00 110 90/63 (72) 90 Nasal Cannula 3.00 I & O 07/04/20 07:00 Intake Total 6367.5 ml Output Total 2300 ml Balance 4067.5 ml Capillary Refill : Less Than 3 SecondsLess Than 3 Seconds General Appearance: WD/WN, Anxious, Chronically ill HEENT: PERRL/EOMI Neck: Normal Inspection, Non Tender, Supple Respiratory: No Accessory Muscle Use, No Respiratory Distress, Crackles, Decreased Breath Sounds Cardiovascular: Regular Rate, Rhythm Peripheral Pulses: 2+ Radial Pulses (R), 2+ Radial Pulses (L) Gastrointestinal: non tender, soft; No guarding, No rebound Extremity: Non Tender Neurologic/Psychiatric: Alert, Oriented x3, No Motor/Sensory Deficits, Depressed Affect Skin: Normal Color, Warm/Dry Lymphatic: No Adenopathy Results Lab Laboratory Tests 07/03/20 13:35: Lactic Acid Level 2.10*H 07/03/20 16:00: Lactic Acid Level 3.12*H 07/03/20 18:30: Lactic Acid Level 3.71*H 07/03/20 23:30: Lactic Acid Level 1.43 07/04/20 01:50: White Blood Count 19.5H, Red Blood Count 3.67L, Hemoglobin 9.8L, Hematocrit 31L, Mean Corpuscular Volume 85, Mean Corpuscular Hemoglobin 27, Mean Corpuscular Hemoglobin Concent 31L, Red Cell Distribution Width 12.8, Platelet Count 231, Mean Platelet Volume 9.5, Immature Granulocyte % (Auto) 5, Neutrophils (%) (Auto) 90H, Lymphocytes (%) (Auto) 4L, Monocytes (%) (Auto) 2, Eosinophils (%) (Auto) 0, Basophils (%) (Auto) 0, Neutrophils # (Auto) 17.5H, Lymphocytes # (Auto) 0.7L, Monocytes # (Auto) 0.3, Eosinophils # (Auto) 0.1, Basophils # (Auto) 0.0, Immature Granulocyte # (Auto) 0.9H, Sodium Level 136, Potassium Level 3.6, Chloride Level 110H, Carbon Dioxide Level 20L, Anion Gap 6, Blood Urea Nitrogen 9, Creatinine 0.85, Estimat Glomerular Filtration Rate > 60, BUN/Creatinine Ratio 11, Glucose Level 103, Calcium Level 7.8L, Phosphorus Level 1.4L, Magnesium Level 1.7 Microbiology 07/03/20 C. difficile GDH Antigen & Toxins - Final, Complete 07/03/20 Influenza Types A,B Antigen ([facility]) - Final, Complete 07/03/20 Urine Culture - Preliminary, Resulted NO GROWTH Assessment/Plan Assessment/Plan Assessment/Plan Dehydration Hx of pyloric/duodenal stenosis s/p EGD with biospy no dilatation done HILLARY -resolved UTI Hypokalemia improved - 3.6 Sepsis Aspiration pneumonia left No abdominal pain Continue IV fluids, zofran for nausea Diflucan/Meropenem Replace electrolytes as needed. Encourage ambulation and IS, DVT and GI ppx Patient transferred to ICU. Central line placed Patient without abdominal pain doubt perforation but ct with oral contrast to evaluate. DEVI MCCONNELL DO 07/04/20 1421: Subjective Subjective/Events-last exam Still with cough. Breathing slightly better today. Having diarrhea, and a rectal tube has been placed. Tolerating clears. Denies n/v today. Denies sweats chills or chest pain. Objective Exam General Appearance: No Apparent Distress, Chronically ill HEENT: PERRL/EOMI, Normal ENT Inspection Neck: Non Tender, Supple Respiratory: Chest Non Tender, No Accessory Muscle Use, No Respiratory Distress, Crackles (left), Decreased Breath Sounds Cardiovascular: Regular Rate, Rhythm, No JVD Gastrointestinal: non tender, soft; No guarding, No rebound Extremity: Non Tender Neurologic/Psychiatric: Alert, Oriented x3, No Motor/Sensory Deficits, Depressed Affect Skin: Normal Color, Warm/Dry Lymphatic: No Adenopathy Assessment/Plan Assessment/Plan Assessment/Plan Dehydration Hx of pyloric/duodenal stenosis s/p EGD with biospy no dilatation done HILLARY -resolved UTI Hypokalemia improved - 3.6 Sepsis Aspiration pneumonia left No abdominal pain Continue IV fluids, zofran for nausea Continue abx Replace electrolytes as needed. Encourage ambulation and IS, DVT and GI ppx Ct scan yesterday no evidence of perforation. Has pyloric stenosis and evidence of left lung process. Supervisory-Addendum Brief Verification & Attestation Participated in pt care: history, MDM, physical Personally performed: exam, history, MDM, supervision of care Care discussed with: Medical Student Procedures: n/a Results interpretation: Verified all documentation Verification and Attestation of Medical Student E/M Service A medical student performed and documented this service in my presence. I reviewed and verified all information documented by the medical student and made modifications to such information, when appropriate. I personally performed the physical exam and medical decision making. Devi Mcconnell, Jul 04, 2020,14:21 AILYN PARR MED STUDENT Jul 04, 2020 13:29 DEVI MCCONNELL DO Jul 04, 2020 14:21
[2020-07-04] MEDS: LORATADINE (CLARITIN) 10 MG TAB PO SCH (21:31)
[2020-07-04] MEDS: MONTELUKAST 10 MG (SINGULAIR) TAB PO SCH (21:31)
[2020-07-05] VITALS (12 sets, daily range): BP systolic 98–125; BP diastolic 62–85
[2020-07-05] MEDS: HYDROCORTISONE 100 MG/2 ML (Solu-CORTEF) VIAL IV SCH ×5 (00:59→23:19)
[2020-07-05] MEDS: PIPERACILLIN/TAZOBACTAM (BULK) 4.5 GM in NS (IVPB) 100 ML IV SCH ×3 (02:06→17:45)
[2020-07-05 03:17] LABS: CHLORIDE 113 MMOL/L (98-107); POTASSIUM 3.5 MMOL/L (3.6-5.0); SODIUM 141 MMOL/L (135-145)
[2020-07-05 03:18] LABS: CALCIUM 7.6 MG/DL (8.5-10.1)
[2020-07-05 03:19] LABS: GLUCOSE 110 MG/DL (70-105)
[2020-07-05 03:20] LABS: CARBON DIOXIDE 21 MMOL/L (21-32)
[2020-07-05 03:22] LABS: CREATININE SERUM 0.79 MG/DL (0.60-1.30); GFR ESTIMATED > 60; PHOSPHORUS 4.4 MG/DL (2.3-4.7)
[2020-07-05 03:24] LABS: BUN/CREATININE RATIO 14
[2020-07-05 03:25] LABS: MAGNESIUM 1.8 MG/DL (1.6-2.4)
[2020-07-05] MEDS: MAGNESIUM 1 GM/100 ML IVPB 100 ML IV SCH (03:53)
[2020-07-05] MEDS: KCL 20 MEQ TAB (K-DUR) PO SCH (03:53)
[2020-07-05] MEDS: POTASSIUM CL 10MEQ/50ML IVPB 50 ML IV SCH ×4 (03:53→06:36)
[2020-07-05] MEDS: NOREPINEPHRINE 4 MG/250 ML 250 ML IV SCH (03:53)
--- NOTE | 2020-07-05 04:17 | Pulmonary Progress Note ---
Subjective Time Seen by a Provider: 04:15 Subjective/Events-last exam no complications noted. Sepsis Event Evaluation Height, Weight, BMI Height: 5'3.00" Weight: 160lbs. 0oz. [id number]; 11.79 BMI Method:Stated Focused Exam Lactate Level 07/03/20 16:00: Lactic Acid Level 3.12*H 07/03/20 18:30: Lactic Acid Level 3.71*H 07/03/20 23:30: Lactic Acid Level 1.43 Time of Focused Exam: 07:00 Exam Exam Vital Signs Date Time Temp Pulse Resp B/P (MAP) Pulse Ox O2 Delivery O2 Flow Rate FiO2 07/05/20 00:00 93 106/65 (79) 98 Nasal Cannula 2.00 07/04/20 23:39 36.1 Nasal Cannula 2.00 07/04/20 23:00 96 105/65 (78) 97 Nasal Cannula 2.00 07/04/20 22:00 93 105/61 (76) 97 Nasal Cannula 2.00 07/04/20 21:00 92 101/64 (76) Nasal Cannula 2.00 07/04/20 20:00 92 100/59 (73) Nasal Cannula 2.00 07/04/20 20:00 97 Nasal Cannula 2.00 07/04/20 20:00 36.1 Nasal Cannula 2.00 07/04/20 19:00 92 105/67 (80) 96 Nasal Cannula 2.00 07/04/20 18:00 98 106/69 (81) 97 Nasal Cannula 2.00 07/04/20 17:00 96 93/62 (72) 96 Nasal Cannula 2.00 07/04/20 16:00 89 94/60 (71) 98 Nasal Cannula 2.00 07/04/20 15:00 90 99/71 (80) 98 Nasal Cannula 2.00 07/04/20 14:00 92 99/69 (79) 99 Nasal Cannula 2.00 07/04/20 13:00 92 99/80 (86) 99 Nasal Cannula 2.00 07/04/20 13:00 99 07/04/20 12:52 35.8 07/04/20 12:00 95 95/68 (77) 99 Nasal Cannula 2.00 07/04/20 11:00 92 90/50 (63) 99 Nasal Cannula 2.00 07/04/20 10:00 101 88/60 (69) 94 Nasal Cannula 2.00 07/04/20 09:00 95 95/58 (70) 97 Nasal Cannula 2.00 07/04/20 08:45 35.8 07/04/20 08:18 Nasal Cannula 2.00 07/04/20 08:00 99 90/53 (65) 97 Nasal Cannula 2.00 07/04/20 07:52 97 Nasal Cannula 2.00 07/04/20 07:00 93 88/57 (67) 95 Nasal Cannula 2.00 07/04/20 07:00 92 07/04/20 06:00 99 18 92/56 (68) 95 Nasal Cannula 2.00 07/04/20 06:00 99 92/56 (68) 96 Nasal Cannula 2.00 07/04/20 05:39 101 18 94/63 (73) 97 Nasal Cannula 2.00 07/04/20 05:00 98 83/50 (61) 96 Nasal Cannula 2.00 I & O 07/05/20 07:00 Intake Total 2480 ml Output Total 1725 ml Balance 755 ml Height & Weight Height: 5'3.00" Weight: 160lbs. 0oz. 72.369676ry; 11.79 BMI Method:Stated General Appearance: No Apparent Distress, WD/WN, Chronically ill HEENT: PERRL/EOMI, Normal ENT Inspection Neck: Non Tender, Supple Respiratory: Chest Non Tender, Lungs Clear, Normal Breath Sounds, No Accessory Muscle Use, No Respiratory Distress, Decreased Breath Sounds Cardiovascular: Regular Rate, Rhythm, No Edema, No Gallop, No JVD, No Murmur, Normal Peripheral Pulses Capillary Refill: Less Than 3 Seconds Peripheral Pulses: 2+ Radial Pulses (R), 2+ Radial Pulses (L) Gastrointestinal: non tender, soft; No guarding, No rebound Extremity: Non Tender Neurologic/Psychiatric: Alert, Oriented x3, No Motor/Sensory Deficits, Normal Mood/Affect Skin: Normal Color, Warm/Dry Lymphatic: No Adenopathy Results Lab Laboratory Tests 07/03/20 06:46 07/03/20 07:40 07/04/20 01:50 07/05/20 02:40 Assessment/Plan Assessment/Plan Acute sepsis probably secondary to UTI and PNA -Vasquez cultures - Zosyn, Flagyl and Diflucan -MRSA swab is negative Aspiration PNA during Pyloric dilation per anesthesia -CXR appears worse today -Change Abx Zosyn, and Diflucan Diarrhea -Flagyl -CDiff is negative Hypotension -- resolved - LR at 150ml/hr Pyloric stenosis s/p dilation 07/[address] Mukherjee -CT reviwed Metabolic lactic acidosis -IVF -Monitor UTI -Continue Abx and Diflucan Anemia -Monitor -Protonix Hypomag -Replace Hyponatremia -Monitor Elevated LFTs -Monitor -Check Hep panel Hypothyroid -Continue Synthroid Depression Chronic debility TOREY JJ DO Jul 05, 2020 04:17
[2020-07-05 04:38] LABS: BASOPHILS % (AUTO) 0 % (0-10); EOSINOPHILS % (AUTO) 0 % (0-10); HEMATOCRIT 27 % (35-52); HEMOGLOBIN 8.5 g/dL (11.5-16.0); LYMPHOCYTES # (AUTO) 0.6 10^3/uL (1.0-4.0); LYMPHOCYTES % (AUTO) 4 % (12-44); MEAN CORPUSCULAR HEMOGLOBIN 27 pg (25-34); MEAN CORPUSCULAR HGB CONC 31 g/dL (32-36); MEAN CORPUSCULAR VOLUME 88 fL (80-99); MEAN PLATELET VOLUME 10.3 fL (9.0-12.2); MONOCYTES # (AUTO) 0.3 10^3/uL (0.0-1.0); MONOCYTES % (AUTO) 2 % (0-12); NEUTROPHILS # (AUTO) 13.2 10^3/uL (1.8-7.8); NEUTROPHILS % (AUTO) 90 % (42-75); PLATELET COUNT 200 10^3/uL (130-400); WHITE BLOOD COUNT 14.7 10^3/uL (4.3-11.0)
[2020-07-05] MEDS: metroNIDAZOLE 500MG/100ML IVPB 100 ML IV SCH ×3 (05:36→21:49)
[2020-07-05] MEDS: LACTATED RINGERS 1,000 ML IV SCH ×4 (05:36→22:16)
--- NOTE | 2020-07-05 07:40 | Progress Note - Surgery ---
AILYN PARR MED STUDENT 07/05/20 0740: Subjective Date Seen by a Provider: Jul 05, 2020 Time Seen by a Provider: 07:28 Subjective/Events-last exam Pt awake and with upon entry. Pt notes feeling better and interested in being discharged. Pt is very apprehensive at the idea of returning to 4th floor. Pt still has rectal tube and michael catheter. Pt notes some wheezing but overall breathing better. Denies abdominal pain, chest pain, and SOB. C diff negative. Review of Systems General: No Chills, No Fatigue HEENT: No Head Aches, No Dysphasia Pulmonary: No Dyspnea; Cough Cardiovascular: No: Chest Pain, Palpitations Gastrointestinal: Nausea; No: Vomiting, Abdominal Pain Genitourinary: No Dysuria, No Retention Musculoskeletal: No: back pain, leg pain Neurological: No: Numbness, Confusion Focused Exam Lactate Level 07/03/20 16:00: Lactic Acid Level 3.12*H 07/03/20 18:30: Lactic Acid Level 3.71*H 07/03/20 23:30: Lactic Acid Level 1.43 Time of Focused Exam: 07:00 Objective Exam Vital Signs Date Time Temp Pulse Resp B/P (MAP) Pulse Ox O2 Delivery O2 Flow Rate FiO2 07/05/20 06:00 95 114/75 (88) 97 Nasal Cannula 2.00 07/05/20 05:00 82 105/74 (84) 97 Nasal Cannula 2.00 07/05/20 04:00 86 103/62 (76) 97 Nasal Cannula 2.00 07/05/20 04:00 36.0 Nasal Cannula 2.00 07/05/20 03:00 89 102/63 (76) 97 Nasal Cannula 2.00 07/05/20 02:00 90 107/70 (82) 98 Nasal Cannula 2.00 07/05/20 01:00 90 101/65 (77) 97 Nasal Cannula 2.00 07/05/20 01:00 90 07/05/20 00:00 93 106/65 (79) 98 Nasal Cannula 2.00 07/04/20 23:39 36.1 Nasal Cannula 2.00 07/04/20 23:00 96 105/65 (78) 97 Nasal Cannula 2.00 07/04/20 22:00 93 105/61 (76) 97 Nasal Cannula 2.00 07/04/20 21:00 92 101/64 (76) Nasal Cannula 2.00 07/04/20 20:00 92 100/59 (73) Nasal Cannula 2.00 07/04/20 20:00 97 Nasal Cannula 2.00 07/04/20 20:00 36.1 Nasal Cannula 2.00 07/04/20 19:00 92 105/67 (80) 96 Nasal Cannula 2.00 07/04/20 19:00 92 07/04/20 18:00 98 106/69 (81) 97 Nasal Cannula 2.00 07/04/20 17:00 96 93/62 (72) 96 Nasal Cannula 2.00 07/04/20 16:00 89 94/60 (71) 98 Nasal Cannula 2.00 07/04/20 15:00 90 99/71 (80) 98 Nasal Cannula 2.00 07/04/20 14:00 92 99/69 (79) 99 Nasal Cannula 2.00 07/04/20 13:00 92 99/80 (86) 99 Nasal Cannula 2.00 07/04/20 13:00 99 07/04/20 12:52 35.8 07/04/20 12:00 95 95/68 (77) 99 Nasal Cannula 2.00 07/04/20 11:00 92 90/50 (63) 99 Nasal Cannula 2.00 07/04/20 10:00 101 88/60 (69) 94 Nasal Cannula 2.00 07/04/20 09:00 95 95/58 (70) 97 Nasal Cannula 2.00 07/04/20 08:45 35.8 07/04/20 08:18 Nasal Cannula 2.00 07/04/20 08:00 99 90/53 (65) 97 Nasal Cannula 2.00 07/04/20 07:52 97 Nasal Cannula 2.00 I & O 07/05/20 07:00 Intake Total 2680 ml Output Total 1925 ml Balance 755 ml Capillary Refill : Less Than 3 SecondsLess Than 3 Seconds General Appearance: No Apparent Distress, WD/WN, Chronically ill HEENT: PERRL/EOMI Neck: Non Tender, Supple Respiratory: Chest Non Tender, No Accessory Muscle Use, No Respiratory Distress, Crackles (Left lung), Decreased Breath Sounds Cardiovascular: Regular Rate, Rhythm, No Edema Peripheral Pulses: 2+ Radial Pulses (R), 2+ Radial Pulses (L) Gastrointestinal: non tender, soft; No guarding, No rebound Extremity: Non Tender, No Pedal Edema Neurologic/Psychiatric: Alert, Oriented x3, No Motor/Sensory Deficits, Normal Mood/Affect Skin: Normal Color, Warm/Dry Lymphatic: No Adenopathy Results Lab Laboratory Tests 07/05/20 02:40: White Blood Count 14.7H, Red Blood Count 3.11L, Hemoglobin 8.5L, Hematocrit 27L, Mean Corpuscular Volume 88, Mean Corpuscular Hemoglobin 27, Mean Corpuscular Hemoglobin Concent 31L, Red Cell Distribution Width 13.3, Platelet Count 200, Mean Platelet Volume 10.3, Immature Granulocyte % (Auto) 4, Neutrophils (%) (Auto) 90H, Lymphocytes (%) (Auto) 4L, Monocytes (%) (Auto) 2, Eosinophils (%) (Auto) 0, Basophils (%) (Auto) 0, Neutrophils # (Auto) 13.2H, Lymphocytes # (Auto) 0.6L, Monocytes # (Auto) 0.3, Eosinophils # (Auto) 0.0, Basophils # (Auto) 0.0, Immature Granulocyte # (Auto) 0.6H, Sodium Level 141, Potassium Level 3.5L, Chloride Level 113H, Carbon Dioxide Level 21, Anion Gap 7, Blood Urea Nitrogen 11, Creatinine 0.79, Estimat Glomerular Filtration Rate > 60, BUN/Creatinine Ratio 14, Glucose Level 110H, Calcium Level 7.6L, Phosphorus Level 4.4, Magnesium Level 1.8 Microbiology 07/03/20 C. difficile GDH Antigen & Toxins - Final, Complete 07/03/20 Blood Culture - Preliminary, Resulted No growth 07/03/20 Influenza Types A,B Antigen (NIKITA) - Final, Complete 07/03/20 Urine Culture - Preliminary, Resulted Assessment/Plan Assessment/Plan Assessment/Plan Dehydration Hx of pyloric/duodenal stenosis s/p EGD with biospy no dilatation done HILLARY -resolved UTI Hypokalemia improved - 3.5 Sepsis Aspiration pneumonia left - improving per CXR (07/05) No abdominal pain Continue IV fluids, zofran for nausea Continue abx Replace electrolytes as needed. Encourage ambulation and IS, DVT and GI ppx Ct scan 07/03 no evidence of perforation. Has pyloric stenosis and evidence of left lung process. PT/OT Tolerating advanced diet of soft foods JOSE ROGER DO 07/05/20 1248: Subjective Time Seen by a Provider: 12:18 Subjective/Events-last exam Pt see and examined, states she is feeling fine and asking about going home. Tolerating clears and states her breathing is better. Review of Systems General: No Chills, No Fatigue Pulmonary: No Dyspnea; Cough Cardiovascular: No: Chest Pain, Palpitations Gastrointestinal: Nausea; No: Vomiting, Abdominal Pain Objective Exam General Appearance: No Apparent Distress HEENT: PERRL/EOMI Respiratory: No Accessory Muscle Use, No Respiratory Distress, Crackles (Left lung), Decreased Breath Sounds Cardiovascular: Regular Rate, Rhythm, No Murmur Gastrointestinal: non tender, soft; No guarding, No rebound Neurologic/Psychiatric: Alert, Oriented x3 Assessment/Plan Assessment/Plan Assessment/Plan Pyloric/duodenal stenosis s/p EGD with biospy no dilatation done HILLARY -resolved UTI Hypokalemia improved - 3.5 Respiratory Distress secondary to Aspiration pneumonia left - improving per CXR (07/05) No abdominal pain Continue IV fluids, zofran for nausea, Continue abx Replace electrolytes as needed. Encourage ambulation and IS, DVT and GI ppx KEEP ON CLEARS ONLY D/C michael and rectal tube Discussed plan with pt; give her another day to get better from Aspiration and then take to surgery to bypass pyloric stricture. However, would be basically doing a distal gastrectomy because we still don't have good diagnosis for cause of Pyloric stricture and I don't think leaving it in is the right thing to do. Discussed risks and complications; not limited to pain, bleeding, infection, scar, damage to bowel and need for further procedure. All questions answered to her and her signifcant others satisfaction. Plan for surgery on Sunday. Supervisory-Addendum Brief Verification & Attestation Participated in pt care: history, MDM, physical Personally performed: exam, history, MDM Care discussed with: Medical Student Procedures: n/a Verification and Attestation of Medical Student E/M Service A medical student performed and documented this service. I then reviewed and verified all information documented by the medical student and made modifications to such information, when appropriate. I personally performed a physical exam, medical decision making and then discussed any differences between the notes and made revisions as necessary to create one note. Jose Roger , 07/05/20 , 12:48 AILYN PARR MED STUDENT Jul 05, 2020 07:40 JOSE ROGER DO Jul 05, 2020 12:48
--- NOTE | 2020-07-05 07:46 | Diagnostic Imaging Report ---
Indication: Pulmonary infiltrates, followup. Time of exam: 2:11 AM Correlation is made with prior chest one day earlier. Heart size normal. Right IJ line has tip overlying the SVC. There are some infiltrates of left perihilar region and left base however this appears improved since yesterday. Right lung is clear. There is no effusion or pneumothorax. Impression: Overall improved aeration in the left lung when compared to exam one day earlier. Dictated by: Dictated on workstation # [id number]
[2020-07-05] MEDS: LEVOTHYROXINE 88 MCG (LEVOTHORID) TAB PO SCH (08:34)
[2020-07-05] MEDS: toPIRamate 100 MG (TOPAMAX) TAB PO SCH ×3 (08:34→20:20)
[2020-07-05] MEDS: PROPRANOLOL 20 MG (INDERAL) TABLET PO SCH ×2 (08:34→20:21)
[2020-07-05] MEDS: ENOXAPARIN 40 MG/0.4 ML (LOVENOX) SYR SC SCH (08:34)
[2020-07-05] MEDS: PANTOPRAZOLE 40 MG (PROTONIX) VIAL IV SCH ×2 (08:34→20:20)
[2020-07-05] MEDS: FLUCONAZOLE 200 MG/100 ML 50 ML, EMPTY IV BAG (PVC) 1 EA IV SCH ×2 (08:34)
[2020-07-05] MEDS: LOPERAMIDE 2 MG (IMODIUM) TABLET PO PRN ×2 (08:36→14:18)
[2020-07-05 14:13] LABS: HEPATITIS C ANTIBODY C Non-Reactive (Non-Reactive)
--- NOTE | 2020-07-05 16:30 | NUR ---
flexiseal removed at this time
[2020-07-05] MEDS: LORATADINE (CLARITIN) 10 MG TAB PO SCH (20:20)
[2020-07-05] MEDS: MELATONIN 3 MG TABLET PO PRN (20:20)
[2020-07-05] MEDS: MONTELUKAST 10 MG (SINGULAIR) TAB PO SCH (20:20)
--- NOTE | 2020-07-05 20:33 | Progress Note ---
Subjective Subjective/Events-last exam Pt reports feeling fairly well, she is wondering when she will get to go home. She still has a rectal tube in as well as michael and has not been out of bed per her report. Focused Exam Lactate Level 07/03/20 16:00: Lactic Acid Level 3.12*H 07/03/20 18:30: Lactic Acid Level 3.71*H 07/03/20 23:30: Lactic Acid Level 1.43 Time of Focused Exam: 07:00 Objective Exam Last Set of Vital Signs Vital Signs Date Time Temp Pulse Resp B/P (MAP) Pulse Ox O2 Delivery O2 Flow Rate FiO2 07/05/20 19:01 36.4 87 18 123/76 (92) 96 Room Air 07/05/20 16:09 2.00 Capillary Refill : Less Than 3 SecondsLess Than 3 Seconds I&O Intake and Output 07/05/20 00:00 Intake Total 2810 ml Output Total 1925 ml Balance 885 ml Intake Oral 750 ml IV Total 2060 ml Output Urine Total 1775 ml Stool Total 150 ml # Bowel Movements 5 General: Alert, No Acute Distress Lungs: Clear to Auscultation, Normal Air Movement Heart: Regular Rate, No Murmurs Abdomen: Normal Bowel Sounds, Soft Extremities: No Edema Neuro: Normal Speech Psych/Mental Status: Mood NL Results/Procedures Lab Laboratory Tests 07/05/20 02:40: White Blood Count 14.7H, Red Blood Count 3.11L, Hemoglobin 8.5L, Hematocrit 27L, Mean Corpuscular Volume 88, Mean Corpuscular Hemoglobin 27, Mean Corpuscular Hemoglobin Concent 31L, Red Cell Distribution Width 13.3, Platelet Count 200, Mean Platelet Volume 10.3, Immature Granulocyte % (Auto) 4, Neutrophils (%) (Auto) 90H, Lymphocytes (%) (Auto) 4L, Monocytes (%) (Auto) 2, Eosinophils (%) (Auto) 0, Basophils (%) (Auto) 0, Neutrophils # (Auto) 13.2H, Lymphocytes # (Auto) 0.6L, Monocytes # (Auto) 0.3, Eosinophils # (Auto) 0.0, Basophils # (Auto) 0.0, Immature Granulocyte # (Auto) 0.6H, Sodium Level 141, Potassium Level 3.5L, Chloride Level 113H, Carbon Dioxide Level 21, Anion Gap 7, Blood Urea Nitrogen 11, Creatinine 0.79, Estimat Glomerular Filtration Rate > 60, BUN/Creatinine Ratio 14, Glucose Level 110H, Calcium Level 7.6L, Phosphorus Level 4.4, Magnesium Level 1.8 Microbiology 07/03/20 C. difficile GDH Antigen & Toxins - Final, Complete 07/03/20 Blood Culture - Preliminary, Resulted No growth 07/03/20 Influenza Types A,B Antigen (NIKITA) - Final, Complete 07/03/20 Urine Culture - Final, Complete Victorina glabrata Assessment/Plan Assessment/Plan (1) Aspiration pneumonia Status: Acute Assessment & Plan: On zosyn and flagyl, improving. Qualifiers: (2) Septic shock Status: Resolved Assessment & Plan: Secondary to aspiration pneumonia, had lactic acidosis, leukocytosis, required pressors. Still on Solu-cortef. (3) Diarrhea Status: Acute Assessment & Plan: C diff negative. Still has rectal tube in, will plan for removal as soon as she is able to get to bedside commode adequately. (4) Acute renal insufficiency Status: Resolved Assessment & Plan: Secondary to volume depletion (5) Intractable nausea and vomiting Status: Acute Assessment & Plan: Secondary to pyloric stenosis and gastric distension. Improving. (6) Acquired pyloric stricture Status: Acute Assessment & Plan: Biopsy done, unable to do dilation due to aspiration. Appreciate Surgery recommendations. (7) DVT prophylaxis Status: Acute Assessment & Plan: Enoxaparin KACEY SEVILLA MD Jul 05, 2020 20:33
[2020-07-06] MEDS: PIPERACILLIN/TAZOBACTAM (BULK) 4.5 GM in NS (IVPB) 100 ML IV SCH ×3 (02:56→17:37)
[2020-07-06] MEDS: LACTATED RINGERS 1,000 ML IV SCH ×4 (02:56→20:41)
[2020-07-06 04:06] VITALS: BP 107/71
[2020-07-06] MEDS: metroNIDAZOLE 500MG/100ML IVPB 100 ML IV SCH (05:09)
[2020-07-06] MEDS: HYDROCORTISONE 100 MG/2 ML (Solu-CORTEF) VIAL IV SCH ×3 (05:12→17:37)
[2020-07-06 05:19] LABS: BASOPHILS % (AUTO) 0 % (0-10); EOSINOPHILS % (AUTO) 0 % (0-10); HEMATOCRIT 27 % (35-52); HEMOGLOBIN 8.4 g/dL (11.5-16.0); LYMPHOCYTES # (AUTO) 0.7 10^3/uL (1.0-4.0); LYMPHOCYTES % (AUTO) 9 % (12-44); MEAN CORPUSCULAR HEMOGLOBIN 27 pg (25-34); MEAN CORPUSCULAR HGB CONC 32 g/dL (32-36); MEAN CORPUSCULAR VOLUME 87 fL (80-99); MEAN PLATELET VOLUME 9.8 fL (9.0-12.2); MONOCYTES # (AUTO) 0.2 10^3/uL (0.0-1.0); MONOCYTES % (AUTO) 3 % (0-12); NEUTROPHILS # (AUTO) 6.6 10^3/uL (1.8-7.8); NEUTROPHILS % (AUTO) 87 % (42-75); PLATELET COUNT 207 10^3/uL (130-400); WHITE BLOOD COUNT 7.6 10^3/uL (4.3-11.0)
[2020-07-06 05:40] LABS: CHLORIDE 113 MMOL/L (98-107); POTASSIUM 3.4 MMOL/L (3.6-5.0); SODIUM 142 MMOL/L (135-145)
[2020-07-06 05:41] LABS: CALCIUM 7.7 MG/DL (8.5-10.1)
[2020-07-06 05:42] LABS: GLUCOSE 107 MG/DL (70-105)
[2020-07-06 05:44] LABS: CARBON DIOXIDE 21 MMOL/L (21-32)
[2020-07-06 05:46] LABS: CREATININE SERUM 0.75 MG/DL (0.60-1.30); GFR ESTIMATED > 60
[2020-07-06 05:47] LABS: BUN/CREATININE RATIO 16
[2020-07-06 05:48] LABS: MAGNESIUM 1.7 MG/DL (1.6-2.4)
[2020-07-06] MEDS: MAGNESIUM 1 GM/100 ML IVPB 100 ML IV SCH ×3 (05:52→06:46)
[2020-07-06] MEDS: KCL 20 MEQ TAB (K-DUR) PO SCH (05:54)
[2020-07-06] MEDS: POTASSIUM CL 10MEQ/50ML IVPB 50 ML IV SCH (05:54)
[2020-07-06] MEDS ORDERED: KCL 20 MEQ TAB (K-DUR) PO ONE ×2 (07:00→07:45)
--- NOTE | 2020-07-06 07:41 | Progress Note - Surgery ---
AILYN PARR MED STUDENT 07/06/20 0741: Subjective Date Seen by a Provider: Jul 06, 2020 Time Seen by a Provider: 07:35 Subjective/Events-last exam Pt asleep upon entry but easily woken. Pt notes breathing better but coughing some. Pt denies abdominal pain, SOB, N/V. Pts rectal tube and michael was removed yesterday. Pt notes ambulating easier now. No other acute events over night. Review of Systems General: No Chills, No Fatigue HEENT: No Head Aches, No Dysphasia Pulmonary: No Dyspnea; Cough Cardiovascular: No: Chest Pain, Palpitations Gastrointestinal: No: Nausea, Vomiting, Abdominal Pain, Diarrhea Genitourinary: No Frequency, No Retention Musculoskeletal: No: back pain, leg pain Neurological: No: Weakness, Confusion Focused Exam Lactate Level 07/03/20 16:00: Lactic Acid Level 3.12*H 07/03/20 18:30: Lactic Acid Level 3.71*H 07/03/20 23:30: Lactic Acid Level 1.43 Time of Focused Exam: 07:00 Objective Exam Vital Signs Date Time Temp Pulse Resp B/P (MAP) Pulse Ox O2 Delivery O2 Flow Rate FiO2 07/06/20 04:06 36.6 89 18 107/71 (83) 95 Room Air 07/05/20 23:22 36.2 93 18 98/70 (79) 95 Room Air 07/05/20 20:20 Room Air 07/05/20 19:01 36.4 87 18 123/76 (92) 96 Room Air 07/05/20 16:09 36.1 96 22 125/85 (98) 95 Nasal Cannula 2.00 07/05/20 12:00 98 110/68 (82) 96 Nasal Cannula 2.00 07/05/20 09:30 99 Nasal Cannula 2.00 07/05/20 08:00 98 Nasal Cannula 2.00 07/05/20 08:00 102 115/74 (88) 96 Nasal Cannula 2.00 I & O 07/06/20 07:00 Intake Total 3300 ml Output Total 800 ml Balance 2500 ml Capillary Refill : Less Than 3 SecondsLess Than 3 Seconds General Appearance: No Apparent Distress HEENT: PERRL/EOMI Neck: Non Tender, Supple Respiratory: Normal Breath Sounds, No Accessory Muscle Use, No Respiratory Distress Cardiovascular: Regular Rate, Rhythm, No Murmur Peripheral Pulses: 2+ Radial Pulses (R), 2+ Radial Pulses (L) Gastrointestinal: non tender, soft; No guarding, No rebound Extremity: Non Tender, No Pedal Edema Neurologic/Psychiatric: Alert, Oriented x3, No Motor/Sensory Deficits, Normal Mood/Affect Skin: Normal Color, Warm/Dry Lymphatic: No Adenopathy Results Lab Laboratory Tests 07/06/20 05:03: White Blood Count 7.6, Red Blood Count 3.08L, Hemoglobin 8.4L, Hematocrit 27L, Mean Corpuscular Volume 87, Mean Corpuscular Hemoglobin 27, Mean Corpuscular Hemoglobin Concent 32, Red Cell Distribution Width 13.3, Platelet Count 207, Mean Platelet Volume 9.8, Immature Granulocyte % (Auto) 2, Neutrophils (%) (Auto) 87H, Lymphocytes (%) (Auto) 9L, Monocytes (%) (Auto) 3, Eosinophils (%) (Auto) 0, Basophils (%) (Auto) 0, Neutrophils # (Auto) 6.6, Lymphocytes # (Auto) 0.7L, Monocytes # (Auto) 0.2, Eosinophils # (Auto) 0.0, Basophils # (Auto) 0.0, Immature Granulocyte # (Auto) 0.1, Sodium Level 142, Potassium Level 3.4L, Chloride Level 113H, Carbon Dioxide Level 21, Anion Gap 8, Blood Urea Nitrogen 12, Creatinine 0.75, Estimat Glomerular Filtration Rate > 60, BUN/Creatinine Ratio 16, Glucose Level 107H, Calcium Level 7.7L, Phosphorus Level 4.0, Magnesium Level 1.7 Microbiology 07/03/20 C. difficile GDH Antigen & Toxins - Final, Complete 07/03/20 Blood Culture - Preliminary, Resulted No growth 07/03/20 Influenza Types A,B Antigen (NIKITA) - Final, Complete 07/03/20 Urine Culture - Final, Complete Victorina glabrata Assessment/Plan Assessment/Plan Assessment/Plan Pyloric/duodenal stenosis s/p EGD with biospy no dilatation done HILLARY -resolved UTI Hypokalemia improved - 3.4 Aspiration pneumonia left - improving per CXR (07/05) No abdominal pain Continue IV fluids, zofran for nausea, Continue abx Replace electrolytes as needed. Encourage ambulation and IS, DVT and GI ppx KEEP ON CLEARS ONLY JOSE ROGER DO 07/06/20 1156: Subjective Time Seen by a Provider: 11:40 Subjective/Events-last exam Pt seen and examined, in good spirits; was just getting up to go to the bathroom. Tolerating clears. Review of Systems General: No Chills, No Fatigue HEENT: No Head Aches Pulmonary: No Dyspnea; Cough Cardiovascular: No: Chest Pain, Palpitations Gastrointestinal: No: Nausea, Vomiting, Abdominal Pain, Diarrhea Objective Exam General Appearance: No Apparent Distress HEENT: PERRL/EOMI Respiratory: Normal Breath Sounds, No Accessory Muscle Use, No Respiratory Distress Cardiovascular: Regular Rate, Rhythm, No Murmur Gastrointestinal: non tender, soft; No guarding, No rebound Neurologic/Psychiatric: Alert, Oriented x3, No Motor/Sensory Deficits, Normal Mood/Affect Skin: Normal Color, Warm/Dry Assessment/Plan Assessment/Plan Assessment/Plan Pyloric/duodenal stenosis - s/p EGD with biospy no dilatation done HILLARY -resolved, UTI - treated Hypokalemia improved - 3.4 Aspiration pneumonia left - improving per CXR (07/05) No abdominal pain Continue IV fluids, zofran for nausea, Continue abx and Replace electrolytes as needed. Encourage ambulation and IS, DVT and GI ppx Plan to make pt NPO and go to OR tomorrow for Distal Gastrectomy with gastric bypass; may do Bilroth type bypass or Erika-Elaine. Discussed procedure with pt and her significant other; risks and complications not limited to pain, bleeding, infection, scar, damage to bowel and need for further procedure. All questions answered to her satisfaction. Supervisory-Addendum Brief Verification & Attestation Participated in pt care: history, MDM, physical Personally performed: exam, history, MDM Care discussed with: Medical Student Procedures: n/a Verification and Attestation of Medical Student E/M Service A medical student performed and documented this service. I then reviewed and verified all information documented by the medical student and made mary fications to such information, when appropriate. I personally performed a physical exam, medical decision making and then discussed any differences between the notes and made revisions as necessary to create one note. Jose Roger , 07/06/20 , 11:56 AILYN PARR MED STUDENT Jul 06, 2020 07:41 JOSE ROGER DO Jul 06, 2020 11:56
--- NOTE | 2020-07-06 07:45 | Pulmonary Progress Note ---
Subjective Time Seen by a Provider: 07:42 Subjective/Events-last exam No complications noted. Sepsis Event Evaluation Height, Weight, BMI Height: 5'3.00" Weight: 160lbs. 0oz. 72.385463lg; 11.79 BMI Method:Stated Focused Exam Lactate Level 07/03/20 16:00: Lactic Acid Level 3.12*H 07/03/20 18:30: Lactic Acid Level 3.71*H 07/03/20 23:30: Lactic Acid Level 1.43 Time of Focused Exam: 07:00 Exam Exam Vital Signs Date Time Temp Pulse Resp B/P (MAP) Pulse Ox O2 Delivery O2 Flow Rate FiO2 07/06/20 04:06 36.6 89 18 107/71 (83) 95 Room Air 07/05/20 23:22 36.2 93 18 98/70 (79) 95 Room Air 07/05/20 20:20 Room Air 07/05/20 19:01 36.4 87 18 123/76 (92) 96 Room Air 07/05/20 16:09 36.1 96 22 125/85 (98) 95 Nasal Cannula 2.00 07/05/20 12:00 98 110/68 (82) 96 Nasal Cannula 2.00 07/05/20 09:30 99 Nasal Cannula 2.00 07/05/20 08:00 98 Nasal Cannula 2.00 07/05/20 08:00 102 115/74 (88) 96 Nasal Cannula 2.00 I & O 07/06/20 07:00 Intake Total 3300 ml Output Total 800 ml Balance 2500 ml Height & Weight Height: 5'3.00" Weight: 160lbs. 0oz. [id number]; 11.79 BMI Method:Stated General Appearance: No Apparent Distress HEENT: PERRL/EOMI Neck: Non Tender, Supple Respiratory: No Accessory Muscle Use, No Respiratory Distress, Crackles (Left lung), Decreased Breath Sounds Cardiovascular: Regular Rate, Rhythm, No Murmur Capillary Refill: Less Than 3 Seconds Peripheral Pulses: 2+ Radial Pulses (R), 2+ Radial Pulses (L) Gastrointestinal: non tender, soft; No guarding, No rebound Extremity: Non Tender, No Pedal Edema Neurologic/Psychiatric: Alert, Oriented x3 Skin: Normal Color, Warm/Dry Lymphatic: No Adenopathy Results Lab Laboratory Tests 07/05/20 02:40 07/06/20 05:03 Assessment/Plan Assessment/Plan Acute sepsis probably secondary to UTI and PNA -Vasquez cultures - Zosyn, Flagyl and Diflucan -MRSA swab is negative Aspiration PNA during Pyloric dilation per anesthesia -Change Abx Zosyn, and Diflucan Diarrhea -Flagyl -CDiff is negative Hypotension -- resolved - LR at 150ml/hr Pyloric stenosis s/p dilation 07/[address] Mukherjee UTI -Continue Abx and Diflucan Anemia -Monitor -Protonix Hypomag -Replace Hyponatremia -Monitor Elevated LFTs -Monitor -Check Hep panel Hypothyroid -Continue Synthroid Depression Chronic debility TOREY JJ DO Jul 06, 2020 07:45
[2020-07-06 08:00] VITALS: BP 115/72
[2020-07-06] MEDS: PROPRANOLOL 20 MG (INDERAL) TABLET PO SCH ×2 (08:23→20:40)
[2020-07-06] MEDS: ENOXAPARIN 40 MG/0.4 ML (LOVENOX) SYR SC SCH (08:23)
[2020-07-06] MEDS: toPIRamate 100 MG (TOPAMAX) TAB PO SCH ×3 (08:23→20:40)
[2020-07-06] MEDS: LEVOTHYROXINE 88 MCG (LEVOTHORID) TAB PO SCH (08:23)
[2020-07-06] MEDS: PANTOPRAZOLE 40 MG (PROTONIX) VIAL IV SCH ×2 (08:23→20:40)
[2020-07-06] MEDS: FLUCONAZOLE 200 MG/100 ML 50 ML, EMPTY IV BAG (PVC) 1 EA IV SCH ×2 (09:20)
--- NOTE | 2020-07-06 10:21 | Progress Note ---
Subjective Subjective/Events-last exam Feeling better, hasn't been out of bed much but had michael and rectal tube removed and states she was able to get to the toilet for a BM last night. Focused Exam Lactate Level 07/03/20 16:00: Lactic Acid Level 3.12*H 07/03/20 18:30: Lactic Acid Level 3.71*H 07/03/20 23:30: Lactic Acid Level 1.43 Time of Focused Exam: 07:00 Objective Exam Last Set of Vital Signs Vital Signs Date Time Temp Pulse Resp B/P (MAP) Pulse Ox O2 Delivery O2 Flow Rate FiO2 07/06/20 08:00 36.1 93 20 115/72 (86) 95 Room Air 07/05/20 16:09 2.00 Capillary Refill : Less Than 3 SecondsLess Than 3 Seconds I&O Intake and Output 07/06/20 00:00 Intake Total 1930 ml Output Total 875 ml Balance 1055 ml Intake Oral 1710 ml IV Total 220 ml Output Urine Total 875 ml # Voids 2 # Bowel Movements 2 General: Alert, No Acute Distress Lungs: Clear to Auscultation, Normal Air Movement Heart: Regular Rate, No Murmurs Abdomen: Normal Bowel Sounds, Soft, No Tenderness Neuro: Normal Speech Psych/Mental Status: Mood NL Results/Procedures Lab Laboratory Tests 07/06/20 05:03: White Blood Count 7.6, Red Blood Count 3.08L, Hemoglobin 8.4L, Hematocrit 27L, Mean Corpuscular Volume 87, Mean Corpuscular Hemoglobin 27, Mean Corpuscular Hemoglobin Concent 32, Red Cell Distribution Width 13.3, Platelet Count 207, Mean Platelet Volume 9.8, Immature Granulocyte % (Auto) 2, Neutrophils (%) (Auto) 87H, Lymphocytes (%) (Auto) 9L, Monocytes (%) (Auto) 3, Eosinophils (%) (Auto) 0, Basophils (%) (Auto) 0, Neutrophils # (Auto) 6.6, Lymphocytes # (Auto) 0.7L, Monocytes # (Auto) 0.2, Eosinophils # (Auto) 0.0, Basophils # (Auto) 0.0, Immature Granulocyte # (Auto) 0.1, Sodium Level 142, Potassium Level 3.4L, Chloride Level 113H, Carbon Dioxide Level 21, Anion Gap 8, Blood Urea Nitrogen 12, Creatinine 0.75, Estimat Glomerular Filtration Rate > 60, BUN/Creatinine Ratio 16, Glucose Level 107H, Calcium Level 7.7L, Phosphorus Level 4.0, Magnesium Level 1.7, B-Type Natriuretic Peptide 610.0H Microbiology 07/03/20 C. difficile GDH Antigen & Toxins - Final, Complete 07/03/20 Blood Culture - Preliminary, Resulted No growth 07/03/20 Influenza Types A,B Antigen (NIKITA) - Final, Complete 07/03/20 Urine Culture - Final, Complete Victorina glabrata Assessment/Plan Assessment/Plan (1) Aspiration pneumonia Status: Acute Assessment & Plan: On zosyn and flagyl, improving. Leukocytosis resolved. Qualifiers: (2) Septic shock Status: Resolved Assessment & Plan: Secondary to aspiration pneumonia, had lactic acidosis, leukocytosis, required pressors. Still on Solu-cortef. (3) Diarrhea Status: Acute Assessment & Plan: C diff negative. Rectal tube removed, improving (4) Acute renal insufficiency Status: Resolved Assessment & Plan: Secondary to volume depletion (5) Intractable nausea and vomiting Status: Acute Assessment & Plan: Secondary to pyloric stenosis and gastric distension. Improving, is tolerating liquids, plan for surgery tomorrow. (6) Acquired pyloric stricture Status: Acute Assessment & Plan: Biopsy done, unable to do dilation due to aspiration. Appreciate Surgery recommendations, plan for OR Sunday. (7) DVT prophylaxis Status: Acute Assessment & Plan: Enoxaparin KACEY SEVILLA MD Jul 06, 2020 10:21
[2020-07-06 12:00] VITALS: BP 114/78
[2020-07-06 16:00] VITALS: BP 135/85
[2020-07-06] MEDS: ACETAMINOPHEN 325 MG TABLET PO PRN (18:04)
[2020-07-06] MEDS: MONTELUKAST 10 MG (SINGULAIR) TAB PO SCH (20:40)
[2020-07-06] MEDS: LORATADINE (CLARITIN) 10 MG TAB PO SCH (20:40)
[2020-07-06 20:47] VITALS: BP 124/82
[2020-07-07] VITALS (12 sets, daily range): BP systolic 96–136; BP diastolic 54–87
[2020-07-07] MEDS: HYDROCORTISONE 100 MG/2 ML (Solu-CORTEF) VIAL IV SCH
[2020-07-07] MEDS: LACTATED RINGERS 1,000 ML IV SCH ×2 (03:37→16:04)
[2020-07-07] MEDS: PIPERACILLIN/TAZOBACTAM (BULK) 4.5 GM in NS (IVPB) 100 ML IV SCH ×3 (04:04→17:47)
[2020-07-07 05:58] LABS: BASOPHILS % (AUTO) 0 % (0-10); EOSINOPHILS % (AUTO) 0 % (0-10); HEMATOCRIT 29 % (35-52); LYMPHOCYTES # (AUTO) 0.9 10^3/uL (1.0-4.0); LYMPHOCYTES % (AUTO) 19 % (12-44); MEAN CORPUSCULAR HEMOGLOBIN 27 pg (25-34); MEAN CORPUSCULAR HGB CONC 31 g/dL (32-36); MEAN CORPUSCULAR VOLUME 87 fL (80-99); MEAN PLATELET VOLUME 9.5 fL (9.0-12.2); MONOCYTES # (AUTO) 0.3 10^3/uL (0.0-1.0); MONOCYTES % (AUTO) 6 % (0-12); NEUTROPHILS # (AUTO) 3.2 10^3/uL (1.8-7.8); NEUTROPHILS % (AUTO) 70 % (42-75); PLATELET COUNT 238 10^3/uL (130-400); WHITE BLOOD COUNT 4.6 10^3/uL (4.3-11.0)
[2020-07-07 06:12] LABS: CHLORIDE 111 MMOL/L (98-107); POTASSIUM 3.3 MMOL/L (3.6-5.0); SODIUM 141 MMOL/L (135-145)
[2020-07-07 06:13] LABS: CALCIUM 7.9 MG/DL (8.5-10.1)
[2020-07-07 06:14] LABS: GLUCOSE 104 MG/DL (70-105)
[2020-07-07 06:15] LABS: CARBON DIOXIDE 22 MMOL/L (21-32)
[2020-07-07] MEDS: KCL 20 MEQ TAB (K-DUR) PO SCH (06:16)
[2020-07-07 06:17] LABS: CREATININE SERUM 0.74 MG/DL (0.60-1.30); GFR ESTIMATED > 60; PHOSPHORUS 3.1 MG/DL (2.3-4.7)
[2020-07-07] MEDS: POTASSIUM CL 10MEQ/50ML IVPB 50 ML IV SCH ×5 (06:17→08:50)
[2020-07-07 06:18] LABS: BUN/CREATININE RATIO 15
[2020-07-07 06:20] LABS: MAGNESIUM 1.9 MG/DL (1.6-2.4)
[2020-07-07] MEDS: MAGNESIUM 1 GM/100 ML IVPB 100 ML IV SCH (06:27)
--- NOTE | 2020-07-07 06:42 | Pulmonary Progress Note ---
Subjective Time Seen by a Provider: 06:39 Subjective/Events-last exam No complications noted. Sepsis Event Evaluation Height, Weight, BMI Height: 5'3.00" Weight: 160lbs. 0oz. [id number]; 11.79 BMI Method:Stated Focused Exam Time of Focused Exam: 07:00 Exam Exam Vital Signs Date Time Temp Pulse Resp B/P (MAP) Pulse Ox O2 Delivery O2 Flow Rate FiO2 07/07/20 04:17 35.8 82 20 136/87 (103) 97 Room Air 07/07/20 00:37 35.1 81 20 112/74 (87) 98 Room Air 07/06/20 20:47 36.0 85 20 124/82 (96) 95 Room Air 07/06/20 20:00 Room Air 07/06/20 16:00 35.9 81 18 135/85 (102) 99 Room Air 07/06/20 12:00 36.2 85 20 114/78 (90) 98 Room Air 07/06/20 08:00 36.1 93 20 115/72 (86) 95 Room Air 07/06/20 08:00 Room Air I & O 07/07/20 07:00 Intake Total 1890 ml Output Total 250 ml Balance 1640 ml Height & Weight Height: 5'3.00" Weight: 160lbs. 0oz. [id number]; 11.79 BMI Method:Stated General Appearance: No Apparent Distress HEENT: PERRL/EOMI Neck: Non Tender, Supple Respiratory: Normal Breath Sounds, No Accessory Muscle Use, No Respiratory Distress Cardiovascular: Regular Rate, Rhythm, No Murmur Capillary Refill: Less Than 3 Seconds Peripheral Pulses: 2+ Radial Pulses (R), 2+ Radial Pulses (L) Gastrointestinal: non tender, soft; No guarding, No rebound Extremity: Non Tender, No Pedal Edema Neurologic/Psychiatric: Alert, Oriented x3, No Motor/Sensory Deficits, Normal Mood/Affect Skin: Normal Color, Warm/Dry Lymphatic: No Adenopathy Results Lab Laboratory Tests 07/06/20 05:03 07/07/20 05:43 Assessment/Plan Assessment/Plan Acute sepsis probably secondary to UTI and PNA -Vasquez cultures - Zosyn, and Diflucan -MRSA swab is negative Aspiration PNA during Pyloric dilation per anesthesia - Zosyn, and Diflucan Hypotension -- resolved - LR at 150ml/hr -- SL IVF -D/C Solucortef Pyloric stenosis s/p dilation 07/[address] Mukherjee UTI -Continue Abx and Diflucan Anemia -Monitor -Protonix Hypomag -Replace Hyponatremia -Monitor Elevated LFTs -Monitor -Check Hep panel Hypothyroid -Continue Synthroid Depression Chronic debility TOREY JJ DO Jul 07, 2020 06:42
--- NOTE | 2020-07-07 07:42 | Progress Note - Surgery ---
AILYN PARR MED STUDENT 07/07/20 0742: Subjective Date Seen by a Provider: Jul 07, 2020 Time Seen by a Provider: 07:38 Subjective/Events-last exam Pt awake and talking with on phone. Pt is ready for surgery today. Pt confirms BM and that they are becoming more firm. Pt denies SOB, chest pain, or abdominal pain. Pt is interested in knowing when she might be able to be discharged following surgery. Review of Systems General: No Chills, No Fatigue HEENT: No Head Aches, No Dysphasia; Sore Throat Pulmonary: No Dyspnea, No Cough Cardiovascular: No: Chest Pain, Palpitations Gastrointestinal: No: Nausea, Vomiting, Abdominal Pain Genitourinary: No Dysuria, No Retention Musculoskeletal: back pain; No: leg pain Neurological: No: Weakness, Confusion Focused Exam Time of Focused Exam: 07:00 Objective Exam Vital Signs Date Time Temp Pulse Resp B/P (MAP) Pulse Ox O2 Delivery O2 Flow Rate FiO2 07/07/20 04:17 35.8 82 20 136/87 (103) 97 Room Air 07/07/20 00:37 35.1 81 20 112/74 (87) 98 Room Air 07/06/20 20:47 36.0 85 20 124/82 (96) 95 Room Air 07/06/20 20:00 Room Air 07/06/20 16:00 35.9 81 18 135/85 (102) 99 Room Air 07/06/20 12:00 36.2 85 20 114/78 (90) 98 Room Air 07/06/20 08:00 36.1 93 20 115/72 (86) 95 Room Air 07/06/20 08:00 Room Air I & O 07/07/20 07:00 Intake Total 1890 ml Output Total 250 ml Balance 1640 ml Capillary Refill : Less Than 3 SecondsLess Than 3 Seconds General Appearance: No Apparent Distress, WD/WN HEENT: PERRL/EOMI, Moist Mucous Membranes Neck: Non Tender, Supple Respiratory: Chest Non Tender, Lungs Clear, Normal Breath Sounds, No Accessory Muscle Use, No Respiratory Distress Cardiovascular: Regular Rate, Rhythm, No Gallop, No Murmur Peripheral Pulses: 2+ Radial Pulses (R), 2+ Radial Pulses (L) Gastrointestinal: normal bowel sounds, non tender, soft; No guarding, No rebound Extremity: Non Tender, No Pedal Edema Neurologic/Psychiatric: Alert, Oriented x3, No Motor/Sensory Deficits, Normal Mood/Affect Skin: Normal Color, Warm/Dry Lymphatic: No Adenopathy (cervical & axillary) Results Lab Laboratory Tests 07/07/20 05:43: White Blood Count 4.6, Red Blood Count 3.40L, Hemoglobin 9.0L, Hematocrit 29L, Mean Corpuscular Volume 87, Mean Corpuscular Hemoglobin 27, Mean Corpuscular Hemoglobin Concent 31L, Red Cell Distribution Width 13.2, Platelet Count 238, Mean Platelet Volume 9.5, Immature Granulocyte % (Auto) 5, Neutrophils (%) (Auto) 70, Lymphocytes (%) (Auto) 19, Monocytes (%) (Auto) 6, Eosinophils (%) (Auto) 0, Basophils (%) (Auto) 0, Neutrophils # (Auto) 3.2, Lymphocytes # (Auto) 0.9L, Monocytes # (Auto) 0.3, Eosinophils # (Auto) 0.0, Basophils # (Auto) 0.0, Immature Granulocyte # (Auto) 0.2H, Sodium Level 141, Potassium Level 3.3L, Chloride Level 111H, Carbon Dioxide Level 22, Anion Gap 8, Blood Urea Nitrogen 11, Creatinine 0.74, Estimat Glomerular Filtration Rate > 60, BUN/Creatinine Ratio 15, Glucose Level 104, Calcium Level 7.9L, Phosphorus Level 3.1, Magnesium Level 1.9 Microbiology 07/03/20 C. difficile GDH Antigen & Toxins - Final, Complete 07/03/20 Blood Culture - Preliminary, Resulted No growth 07/03/20 Influenza Types A,B Antigen (NIKITA) - Final, Complete 07/03/20 Urine Culture - Final, Complete Victorina glabrata Assessment/Plan Assessment/Plan Assessment/Plan Pyloric/duodenal stenosis - s/p EGD with biospy no dilatation done HILLARY -resolved, UTI - treated Hypokalemia improved - 3.9 Aspiration pneumonia left - improving per CXR (07/05) No abdominal pain NPO Continue IV fluids Continue abx and Replace electrolytes as needed. Encourage ambulation and IS, DVT and GI ppx Surgery today for distal gastrectomy with gastric bypass JOSE MUKHERJEE DO 07/07/20 0933: Subjective Time Seen by a Provider: 09:26 Subjective/Events-last exam Pt seen and examined, no complaints and states she is ready for surgery today. Review of Systems General: No Chills, No Fatigue HEENT: No Head Aches, No Dysphasia Pulmonary: No Dyspnea, No Cough Cardiovascular: No: Chest Pain, Palpitations Gastrointestinal: No: Nausea, Vomiting, Abdominal Pain Objective Exam General Appearance: No Apparent Distress Respiratory: Lungs Clear, Normal Breath Sounds, No Respiratory Distress Cardiovascular: Regular Rate, Rhythm, No Murmur Gastrointestinal: non tender, soft, no organomegaly Assessment/Plan Assessment/Plan Assessment/Plan Pyloric/duodenal stenosis Plant for distal gastrectomy today; Erika-Elaine vs Bilroth I Supervisory-Addendum Brief Verification & Attestation Participated in pt care: history, MDM, physical Personally performed: exam, history, MDM Care discussed with: Medical Student Procedures: n/a Verification and Attestation of Medical Student E/M Service A medical student performed and documented this service. I then reviewed and verified all information documented by the medical student and made modifications to such information, when appropriate. I personally performed a physical exam, medical decision making and then discussed any differences between the notes and made revisions as necessary to create one note. Jose Mukherjee , 07/07/20 , 09:33 AILYN PARR MED STUDENT Jul 07, 2020 07:42 JOSE MUKHERJEE DO Jul 07, 2020 09:33
[2020-07-07] MEDS: PANTOPRAZOLE 40 MG (PROTONIX) VIAL IV SCH (07:51)
[2020-07-07] MEDS: FLUCONAZOLE 200 MG/100 ML 50 ML, EMPTY IV BAG (PVC) 1 EA IV SCH ×2 (07:51)
[2020-07-07] MEDS: PROPRANOLOL 20 MG (INDERAL) TABLET PO SCH ×2 (07:52→19:50)
[2020-07-07] MEDS: ENOXAPARIN 40 MG/0.4 ML (LOVENOX) SYR SC SCH (07:52)
[2020-07-07] MEDS: LEVOTHYROXINE 88 MCG (LEVOTHORID) TAB PO SCH (07:52)
[2020-07-07] MEDS: toPIRamate 100 MG (TOPAMAX) TAB PO SCH ×3 (08:51→19:50)
[2020-07-07] MEDS ORDERED: MIDAZOLAM 2 MG/2 ML (VERSED) VIAL ONE (10:05)
[2020-07-07] MEDS ORDERED: proPOfol 200 MG/20 ML (DIPRIVAN) VIAL IV ONE (10:05)
[2020-07-07] MEDS ORDERED: GLYCOPYRROLATE 0.2 MG/ML (ROBINUL) 2 ML VIAL ONE (10:05)
[2020-07-07] MEDS ORDERED: SEVOFLURANE (ULTANE) 15 ML INHAL SOLN ONE ×6 (10:05→13:56)
[2020-07-07] MEDS ORDERED: NEOSTIGMINE 3 MG/3 ML VIAL ONE (10:05)
[2020-07-07] MEDS ORDERED: ROCURONIUM 10 MG/ML 5 ML SYRINGE IV ONE ×2 (10:05→11:42)
[2020-07-07] MEDS ORDERED: SUCCINYLCHOLINE INJ 100 MG/5 ML SYR/VIAL ONE (10:05)
[2020-07-07] MEDS ORDERED: ONDANSETRON 4 MG/2 ML (SDV) Z0FRAN ONE (10:05)
[2020-07-07] MEDS ORDERED: LIDOCAINE PF 2% 5 ML (XYLOCAINE) VIAL ONE (10:05)
[2020-07-07] MEDS ORDERED: fentaNYL INJECTION 100 MCG/2 ML AMP ONE (10:05)
[2020-07-07] MEDS ORDERED: LIDOCAINE/EPI 1%-1:100,000 (XYLOCAINE) 50 ML ONE (10:18)
--- NOTE | 2020-07-07 10:45 | NUR ---
PATIENT TO SURGERY VIA BED, ACCOMPANIED BY SURGICAL STAFF AND . THIS RN WILL ASSUME CARE OF THIS PATIENT WHEN SHE RETURNS TO THIS FLOOR.
[2020-07-07] MEDS: LACTATED RINGERS 1,000 ML IV PRN ×2 (10:50→12:33)
[2020-07-07] MEDS ORDERED: BUPIVACAINE 0.5% 30 ML (SENSORCAINE) VIAL ONE (13:14)
--- NOTE | 2020-07-07 13:58 | Progress Note-Post Operative ---
Post-Operative Progess Note Surgeon (s)/Telemetry Tech (s) Surgeon JOSE ROGER DO Telemetry Tech: Jayesh Pre-Operative Diagnosis Duodenal stricture Post-Operative Diagnosis same pending pathology Procedure & Operative Findings Date of Procedure 07/07/20 Procedure Performed/Findings Distal Gastrectomy, Bilroth I procedure Anesthesia Type GET Estimated Blood Loss Estimated blood loss (mL): 300ml Specimens/Packing Specimens Removed antrum and portion of duodenum JOSE ROGER DO Jul 07, 2020 13:58
[2020-07-07] MEDS ORDERED: HYDROmorphone 2 MG/ML VIAL (DILAUDID) IV ONE (14:00)
[2020-07-07] MEDS ORDERED: ONDANSETRON 4 MG/2 ML (SDV) Z0FRAN IVP PRN ×2 (14:00)
[2020-07-07] MEDS ORDERED: morphine INJ 10 MG/ML 1ML (SYR OR VIAL) IVP ONE (14:00)
[2020-07-07] MEDS ORDERED: HYDROmorphone 2 MG/ML VIAL (DILAUDID) ONE (14:10)
--- NOTE | 2020-07-07 14:14 | NUR ---
Patient back to floor at this time via bed, this RN will assume care of this patient at this time. Addendum: 07/07/20 at 1449 by DIMPLE JJ RN RETURN TO FLOOR [id number]
--- NOTE | 2020-07-07 14:43 | Progress Note ---
Subjective Subjective/Events-last exam Afebrile, denies complaints, heading to surgery this morning. Focused Exam Time of Focused Exam: 07:00 Objective Exam Last Set of Vital Signs Vital Signs Date Time Temp Pulse Resp B/P (MAP) Pulse Ox O2 Delivery O2 Flow Rate FiO2 07/07/20 14:20 20 102/70 (81) 97 OxyMask 2 07/07/20 13:46 36.4 07/07/20 08:00 86 Capillary Refill : Less Than 3 SecondsLess Than 3 Seconds I&O Intake and Output 07/07/20 00:00 Intake Total 3510 ml Output Total 500 ml Balance 3010 ml Intake Oral 820 ml IV Total 2690 ml Output Urine Total 500 ml # Voids 1 # Bowel Movements 2 General: Alert, No Acute Distress Lungs: Clear to Auscultation, Normal Air Movement Heart: Regular Rate, No Murmurs Psych/Mental Status: Mood NL Results/Procedures Lab Laboratory Tests 07/07/20 05:43: White Blood Count 4.6, Red Blood Count 3.40L, Hemoglobin 9.0L, Hematocrit 29L, Mean Corpuscular Volume 87, Mean Corpuscular Hemoglobin 27, Mean Corpuscular Hemoglobin Concent 31L, Red Cell Distribution Width 13.2, Platelet Count 238, Mean Platelet Volume 9.5, Immature Granulocyte % (Auto) 5, Neutrophils (%) (Auto ) 70, Lymphocytes (%) (Auto) 19, Monocytes (%) (Auto) 6, Eosinophils (%) (Auto) 0, Basophils (%) (Auto) 0, Neutrophils # (Auto) 3.2, Lymphocytes # (Auto) 0.9L, Monocytes # (Auto) 0.3, Eosinophils # (Auto) 0.0, Basophils # (Auto) 0.0, Immature Granulocyte # (Auto) 0.2H, Sodium Level 141, Potassium Level 3.3L, Chloride Level 111H, Carbon Dioxide Level 22, Anion Gap 8, Blood Urea Nitrogen 11, Creatinine 0.74, Estimat Glomerular Filtration Rate > 60, BUN/Creatinine Ratio 15, Glucose Level 104, Calcium Level 7.9L, Phosphorus Level 3.1, Magnesium Level 1.9 Microbiology 07/03/20 C. difficile GDH Antigen & Toxins - Final, Complete 07/03/20 Blood Culture - Preliminary, Resulted No growth 07/03/20 Influenza Types A,B Antigen (NIKITA) - Final, Complete 07/03/20 Urine Culture - Final, Complete Victorina glabrata Assessment/Plan Assessment/Plan (1) Aspiration pneumonia Status: Acute Assessment & Plan: On zosyn and flagyl, improving. Leukocytosis resolved. Qualifiers: (2) Septic shock Status: Resolved Assessment & Plan: Secondary to aspiration pneumonia, had lactic acidosis, leukocytosis, required pressors. Solu-cortef d/c /. (3) Diarrhea Status: Acute Assessment & Plan: C diff negative. Rectal tube removed, improving (4) Acute renal insufficiency Status: Resolved Assessment & Plan: Secondary to volume depletion (5) Intractable nausea and vomiting Status: Acute Assessment & Plan: Secondary to pyloric stenosis and gastric distension. Improving, is tolerating liquids, plan for surgery today (6) Acquired pyloric stricture Status: Acute Assessment & Plan: Biopsy done, unable to do dilation due to aspiration. Appreciate Surgery recommendations, plan for OR Sunday. (7) DVT prophylaxis Status: Acute Assessment & Plan: Enoxaparin KACEY SEVILLA MD Jul 07, 2020 14:43
--- NOTE | 2020-07-07 19:46 | OPERATIVE REPORT ---
DATE OF SERVICE: PREOPERATIVE DIAGNOSIS: Pyloric stricture. POSTOPERATIVE DIAGNOSIS: Pyloric stricture. PROCEDURE: Distal gastrectomy with Billroth type 1. SURGEON: Jose Mukherjee DO FRESH WORK WRAPPER LAYER: Ancelmo Mcconnell DO ANESTHESIA: General endotracheal tube. SPECIMEN: Distal portion of stomach as well as a portion of duodenum and pylorus. BLOOD LOSS: Approximately 300 mL. FLUIDS: Per anesthesia. POSTOPERATIVE CONDITION: Stable. INDICATION FOR PROCEDURE: The patient is a 40-year-old female who has been having some abdominal pain and difficulty getting food through with some nausea and vomiting. EGD performed, showed almost complete stricture of the if not complete stricture of the pylorus. FINDINGS: The patient had an area of the pylorus that was basically completely strictured down, tried to open through here and there was not really any connection opening. PROCEDURE NOTE: After informed consent was obtained, the patient was brought to the operating room, placed on the operating table in supine position. She was sterilely prepped and draped in normal fashion. Midline incision was made with a #10 blade, made from just below the subxiphoid area to about 5 or 6 inches down, made through the skin into subcutaneous tissue, then deepened down to subcutaneous tissue with Bovie electrocautery down to the fascia. Fascia was incised with Bovie electrocautery, then bluntly entered the abdomen, swept a finger around, moved the intestine out of the way. At this point, then placed an Omni retractor to be able to hold this area opened, grasped the stomach and pulled this towards this, could feel the pylorus. It was felt like it was a small knot, tried to elect. Started by trying to do a pyloromyotomy so made an incision in the stomach going through the pylorus into the duodenum. Unfortunately, the pylorus was so strictured down, would not even be able to do a pyloromyotomy. So, at this point, then elected to do a distal gastrectomy with a plan to do a Billroth I. Started taking down the short gastrics with the LigaSure, clamping, coagulating and transecting, freeing up the space, so that we can then get under and behind the stomach going across the lesser curvature through the mesentery with the LigaSure, clamping, coagulating and transecting going down along the first portion of the duodenum just past the pylorus. At this point, then able to get the pursestring applicator across the duodenum, clamped and fired thereby creating a pursestring. We elected to use a 25 EEA stapler, placed the anvil into the duodenum and then tied this down. The pursestring came up a little bit, so had to do some more 3-0 Vicryl tie to hold this pursestring in place. Then elected to go through the opening we had made in the stomach and go to the posterior aspect of the stomach and then opened the trocar through the posterior aspect of the stomach with a 25 EEA stapler, attached to the anvil and then carefully tightened this down, held for 30 seconds, clamped and then fired, held for 20 seconds and then released 3/4 turn and this easily came out, we could look into this and the anastomosis looked good. Had a good gastric and anastomotic ring as the duodenal ring was a jena, but was pulled slightly apart at one edge, but the anastomosis from the inside looked good. At this point, then used a TA stapler 60 gastric stapler to cut off the portion of the stomach, clamped and fired then cut this off, oversewn this end with 0 Vicryl [id number] pop-offs, controlled bleeding. Copiously irrigated with normal saline, suctioned this out. Hemostasis had been obtained. Again, looked good. Elected to place a 19-Croatian Jose Antonio drain in the right upper quadrant using a #15 blade to make an incision and then placed a hemostat through the abdominal wall into the abdomen and then grasped the 19-Croatian Jose Antonio drain, and pulled this through the abdominal wall, sutured this in place with a 2-0 nylon suture. This was placed up above the stomach and into the left upper quadrant as well as just over the top of the gastroduodenal anastomosis. Also placed a piece of omentum appear as a sort of Serge patch and made sure that the NG tube was down in this area as well. At this point, again copiously irrigated the abdomen with normal saline, suctioned this out. No gross spillage, no bleeding and then elected to close the incision, closing the fascia with #1 double stranded PDS suture running from superior portion to inferior portion tying to itself, copiously irrigating in the midline incision with saline and then closed the skin with judith. Area was cleaned and dried and a dressing placed. The patient tolerated the procedure and transferred to recovery room in stable condition. Sponge, instrument and needle count correct at the end of the case. Dr. Mcconnell assisted in this case helping to make incisions, close incisions, identify anatomy, hold anatomy out of the way. Job ID: [id number] DocumentID: [id number] Dictated Date: 07/07/2020 16:19:20 Structural Shop Helper Date: 07/07/2020 19:46:09 Dictated By: JOSE MUKHERJEE DO
[2020-07-07] MEDS: MONTELUKAST 10 MG (SINGULAIR) TAB PO SCH (19:50)
[2020-07-07] MEDS: LORATADINE (CLARITIN) 10 MG TAB PO SCH (19:50)
--- NOTE | 2020-07-07 20:00 | NUR ---
DR. ROGER NOTIFIED OF PT C/O PAIN AFTER SX. PT CURRENTLY NPO WITH NG TO LWS. NO PAIN MEDICATION ON EMAR THAT IS NOT ORAL. NEW ORDERS RECEIVED FOR MORPHINE 2MG IVP Q1HR PRN FOR PAIN. WILL CONTINUE TO MONITOR.
[2020-07-07] MEDS ORDERED: morphine INJ 4 MG/ML 1 ML (VIAL/SYRINGE) ONE (21:01)
[2020-07-07] MEDS: morphine INJ 4 MG/ML 1 ML (VIAL/SYRINGE) IVP PRN (21:06)
[2020-07-08 00:20] VITALS: BP 122/79
[2020-07-08] MEDS: LACTATED RINGERS 1,000 ML IV SCH ×4 (00:50→18:17)
[2020-07-08] MEDS: PIPERACILLIN/TAZOBACTAM (BULK) 4.5 GM in NS (IVPB) 100 ML IV SCH ×3 (02:18→17:30)
[2020-07-08] MEDS: morphine INJ 4 MG/ML 1 ML (VIAL/SYRINGE) IVP PRN ×7 (02:19→23:51)
[2020-07-08 04:00] VITALS: BP 131/75
--- NOTE | 2020-07-08 06:15 | NUR ---
PAYTON CATHETER REMOVED AT THIS TIME, 9ML OF SALINE REMOVED FROM CATHETER BALLOON, 200 ML OF URINE DUMPED FROM PAYTON. PT TOLERATED PROCEDURE WELL WITH NO DISCOMFORT NOTED. DAY SHIFT RN NOTIFIED PT HAS NOT VOIDED SINCE REMOVAL.
[2020-07-08 06:17] LABS: BASOPHILS % (AUTO) 0 % (0-10); EOSINOPHILS # (AUTO) 0.1 10^3/uL (0.0-0.3); EOSINOPHILS % (AUTO) 1 % (0-10); HEMATOCRIT 27 % (35-52); HEMOGLOBIN 8.5 g/dL (11.5-16.0); LYMPHOCYTES # (AUTO) 2.1 10^3/uL (1.0-4.0); LYMPHOCYTES % (AUTO) 20 % (12-44); MEAN CORPUSCULAR HEMOGLOBIN 27 pg (25-34); MEAN CORPUSCULAR HGB CONC 32 g/dL (32-36); MEAN CORPUSCULAR VOLUME 87 fL (80-99); MEAN PLATELET VOLUME 9.3 fL (9.0-12.2); MONOCYTES # (AUTO) 0.7 10^3/uL (0.0-1.0); MONOCYTES % (AUTO) 7 % (0-12); NEUTROPHILS # (AUTO) 7.1 10^3/uL (1.8-7.8); NEUTROPHILS % (AUTO) 70 % (42-75); PLATELET COUNT 256 10^3/uL (130-400); WHITE BLOOD COUNT 10.2 10^3/uL (4.3-11.0)
[2020-07-08 06:38] LABS: CHLORIDE 112 MMOL/L (98-107); POTASSIUM 3.2 MMOL/L (3.6-5.0); SODIUM 141 MMOL/L (135-145)
[2020-07-08 06:39] LABS: CALCIUM 7.3 MG/DL (8.5-10.1)
[2020-07-08 06:40] LABS: GLUCOSE 73 MG/DL (70-105)
[2020-07-08 06:42] LABS: CARBON DIOXIDE 22 MMOL/L (21-32)
[2020-07-08] MEDS: KCL 20 MEQ TAB (K-DUR) PO SCH (06:42)
[2020-07-08 06:44] LABS: GFR ESTIMATED > 60; PHOSPHORUS 2.8 MG/DL (2.3-4.7)
[2020-07-08 06:45] LABS: BUN/CREATININE RATIO 14
[2020-07-08 06:46] LABS: MAGNESIUM 1.6 MG/DL (1.6-2.4)
[2020-07-08] MEDS: POTASSIUM CL 10MEQ/50ML IVPB 50 ML IV SCH ×6 (06:48→10:24)
[2020-07-08] MEDS: MAGNESIUM 1 GM/100 ML IVPB 100 ML IV SCH ×3 (06:49→07:00)
--- NOTE | 2020-07-08 07:18 | Anesthesia-General Post-Op ---
General Patient Condition Mental Status/LOC: Same as Preop Cardiovascular: Satisfactory Nausea/Vomiting: Absent Respiratory: Satisfactory Pain: Controlled Complications: Absent Post Op Complications Complications None Follow Up Care/Instructions Patient Instructions None needed. Anesthesia/Patient Condition Patient Condition Patient is doing well, no complaints, stable vital signs, no apparent adverse anesthesia problems. No complications reported per nursing. ELIZABETH FOSTER CRNA Jul 08, 2020 07:18
[2020-07-08 07:33] VITALS: BP 111/76
--- NOTE | 2020-07-08 07:42 | Progress Note - Surgery ---
AILYN PARR MED STUDENT 07/08/20 0742: Subjective Date Seen by a Provider: Jul 08, 2020 Time Seen by a Provider: 07:37 Subjective/Events-last exam Pt awake and lying in bed upon entry. Pt notes pain of 6/10. Nurse also mentions low grade fever of 99.6. Pt NG tube draining brown liquid and ISAAK draining red serosanguinous liquid, 50 ml removed this AM. No acute events over night. Review of Systems General: No Chills, No Night Sweats; Fatigue HEENT: No Head Aches, No Visual Changes Pulmonary: No Dyspnea; Cough Cardiovascular: No: Chest Pain, Palpitations Gastrointestinal: Abdominal Pain; No: Nausea, Vomiting Genitourinary: No Dysuria, No Retention Musculoskeletal: No: shoulder pain, back pain, leg pain Neurological: No: Numbness, Confusion Focused Exam Time of Focused Exam: 07:00 Objective Exam Vital Signs Date Time Temp Pulse Resp B/P (MAP) Pulse Ox O2 Delivery O2 Flow Rate FiO2 07/08/20 07:33 37.6 84 20 111/76 (88) 91 07/08/20 04:00 36.6 84 20 131/75 (93) 96 Room Air 07/08/20 00:20 35.8 82 19 122/79 (93) 95 Room Air 07/07/20 19:55 36.0 85 18 114/72 (86) 98 Nasal Cannula 1.50 07/07/20 19:50 Nasal Cannula 1.50 07/07/20 16:00 35.3 79 18 110/75 (87) 97 Nasal Cannula 2.00 07/07/20 14:45 Nasal Cannula 2 07/07/20 14:40 36.4 20 98/63 (75) 95 Nasal Cannula 2 07/07/20 14:30 18 99/65 (76) 98 OxyMask 2 07/07/20 14:30 OxyMask 2 07/07/20 14:20 20 102/70 (81) 97 OxyMask 2 07/07/20 14:15 OxyMask 4 07/07/20 14:10 22 102/79 (87) 96 OxyMask 4 07/07/20 14:00 OxyMask 6 07/07/20 13:55 20 101/54 (70) 99 OxyMask 6 07/07/20 13:46 OxyMask 8 07/07/20 13:46 36.4 22 97/61 (73) 98 OxyMask 8 07/07/20 08:00 35.6 86 16 125/77 (93) 98 Room Air 07/07/20 08:00 Room Air I & O 07/08/20 07:00 Intake Total 4345 ml Output Total 1220 ml Balance 3125 ml Capillary Refill : Less Than 3 SecondsLess Than 3 Seconds General Appearance: No Apparent Distress, WD/WN HEENT: PERRL/EOMI; No Moist Mucous Membranes Neck: Non Tender, Supple Respiratory: Lungs Clear, Normal Breath Sounds, No Respiratory Distress Cardiovascular: Regular Rate, Rhythm, No Gallop, No Murmur Peripheral Pulses: 2+ Radial Pulses (R), 2+ Radial Pulses (L) Gastrointestinal: normal bowel sounds, soft, no organomegaly, tenderness (from incision) Extremity: Non Tender, No Pedal Edema Neurologic/Psychiatric: Alert, Oriented x3, No Motor/Sensory Deficits, Normal Mood/Affect Skin: Warm/Dry, Pallor Lymphatic: No Adenopathy (cervical, axillary, groin) Results Lab Laboratory Tests 07/08/20 06:02: White Blood Count 10.2, Red Blood Count 3.10L, Hemoglobin 8.5L, Hematocrit 27L, Mean Corpuscular Volume 87, Mean Corpuscular Hemoglobin 27, Mean Corpuscular Hemoglobin Concent 32, Red Cell Distribution Width 13.2, Platelet Count 256, Mean Platelet Volume 9.3, Immature Granulocyte % (Auto) 2, Neutrophils (%) (Auto) 70, Lymphocytes (%) (Auto) 20, Monocytes (%) (Auto) 7, Eosinophils (%) (Auto) 1, Basophils (%) (Auto) 0, Neutrophils # (Auto) 7.1, Lymphocytes # (Auto) 2.1, Monocytes # (Auto) 0.7, Eosinophils # (Auto) 0.1, Basophils # (Auto) 0.0, Immature Granulocyte # (Auto) 0.2H, Sodium Level 141, Potassium Level 3.2L, Chloride Level 112H, Carbon Dioxide Level 22, Anion Gap 7, Blood Urea Nitrogen 10, Creatinine 0.70, Estimat Glomerular Filtration Rate > 60, BUN/Creatinine Ratio 14, Glucose Level 73, Calcium Level 7.3L, Phosphorus Level 2.8, Magnesium Level 1.6 Microbiology 07/03/20 C. 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 Wasn't really answering questions. Review of Systems General: No Chills; Fatigue, Malaise Pulmonary: No Dyspnea; Cough Cardiovascular: No: Chest Pain, Palpitations Gastrointestinal: Abdominal Pain; No: Nausea, Vomiting Objective Exam General Appearance: No Apparent Distress HEENT: PERRL/EOMI Respiratory: Lungs Clear, Normal Breath Sounds, No Respiratory Distress Cardiovascular: Regular Rate, Rhythm, No Murmur Gastrointestinal: soft, no organomegaly, tenderness (from incision), other (ISAAK with serous fluid, NGT with brownish liquid) Assessment/Plan Assessment/Plan Assessment/Plan Pyloric Stenosis S/P Bilroth I, continue NGT, pain management, ISAAK drain, NPO Supervisory-Addendum Brief Verification & Attestation Participated in pt care: history, MDM, physical Personally performed: exam, history, MDM Care discussed with: Medical Student Procedures: n/a Verification and Attestation of Medical Student E/M Service A medical student performed and documented this service. I then reviewed and verified all information documented by the medical student and made modifications to such information, when appropriate. I personally performed a physical exam, medical decision making and then discussed any differences between the notes and made revisions as necessary to create one note. Jose Mukherjee , 07/08/20 , 09:26 AILYN PARR MED STUDENT Jul 08, 2020 07:42 JOSE MUKHERJEE DO Jul 08, 2020 09:27
[2020-07-08] MEDS: LEVOTHYROXINE 88 MCG (LEVOTHORID) TAB PO SCH (07:52)
[2020-07-08] MEDS: PROPRANOLOL 20 MG (INDERAL) TABLET PO SCH ×2 (07:52→19:20)
[2020-07-08] MEDS: toPIRamate 100 MG (TOPAMAX) TAB PO SCH ×3 (07:52→19:20)
[2020-07-08] MEDS: PANTOPRAZOLE 40 MG (PROTONIX) VIAL IVP SCH (08:10)
[2020-07-08] MEDS: FLUCONAZOLE 200 MG/100 ML 50 ML, EMPTY IV BAG (PVC) 1 EA IV SCH ×2 (08:10)
--- NOTE | 2020-07-08 09:55 | Pulmonary Progress Note ---
Sepsis Event Evaluation Height, Weight, BMI Height: 5'3.00" Weight: 160lbs. 0oz. 72.357566lj; 11.79 BMI Method:Stated Focused Exam Time of Focused Exam: 07:00 Exam Exam Vital Signs Date Time Temp Pulse Resp B/P (MAP) Pulse Ox O2 Delivery O2 Flow Rate FiO2 07/08/20 07:58 91 Room Air 07/08/20 07:33 37.6 84 20 111/76 (88) 91 07/08/20 04:00 36.6 84 20 131/75 (93) 96 Room Air 07/08/20 00:20 35.8 82 19 122/79 (93) 95 Room Air 07/07/20 19:55 36.0 85 18 114/72 (86) 98 Nasal Cannula 1.50 07/07/20 19:50 Nasal Cannula 1.50 07/07/20 16:00 35.3 79 18 110/75 (87) 97 Nasal Cannula 2.00 07/07/20 14:45 Nasal Cannula 2 07/07/20 14:40 36.4 20 98/63 (75) 95 Nasal Cannula 2 07/07/20 14:30 18 99/65 (76) 98 OxyMask 2 07/07/20 14:30 OxyMask 2 07/07/20 14:20 20 102/70 (81) 97 OxyMask 2 07/07/20 14:15 OxyMask 4 07/07/20 14:10 22 102/79 (87) 96 OxyMask 4 07/07/20 14:00 OxyMask 6 07/07/20 13:55 20 101/54 (70) 99 OxyMask 6 07/07/20 13:46 OxyMask 8 07/07/20 13:46 36.4 22 97/61 (73) 98 OxyMask 8 I & O 07/08/20 07:00 Intake Total 4345 ml Output Total 1220 ml Balance 3125 ml Height & Weight Height: 5'3.00" Weight: 160lbs. 0oz. 72.643935ll; 11.79 BMI Method:Stated General Appearance: No Apparent Distress HEENT: PERRL/EOMI Neck: Non Tender, Supple Respiratory: Lungs Clear, Normal Breath Sounds, No Respiratory Distress Cardiovascular: Regular Rate, Rhythm, No Murmur Capillary Refill: Less Than 3 Seconds Peripheral Pulses: 2+ Radial Pulses (R), 2+ Radial Pulses (L) Gastrointestinal: soft, no organomegaly, tenderness (from incision), other (ISAAK with serous fluid, NGT with brownish liquid) Extremity: Non Tender, No Pedal Edema Neurologic/Psychiatric: Alert, Oriented x3, No Motor/Sensory Deficits, Normal Mood/Affect Skin: Warm/Dry, Pallor Lymphatic: No Adenopathy (cervical, axillary, groin) Results Lab Laboratory Tests 07/07/20 05:43 07/08/20 06:02 Assessment/Plan Assessment/Plan Acute sepsis probably secondary to UTI and PNA -Vasquez cultures - Zosyn, and Diflucan -MRSA swab is negative Aspiration PNA during Pyloric dilation per anesthesia - Zosyn, and Diflucan Hypotension -- resolved Pyloric stenosis s/p dilation 07/[address] Mukherjee UTI -Continue Abx and Diflucan Anemia -Monitor -Protonix Hypomag -Replace Hyponatremia -Monitor Elevated LFTs -Monitor -Check Hep panel Hypothyroid -Continue Synthroid Depression Chronic debility TOREY JJ DO Jul 08, 2020 09:55
[2020-07-08 11:26] VITALS: BP 110/65
--- NOTE | 2020-07-08 14:07 | NUR ---
"RD ASSESSMENT PMHx: chronic gastritis; PT INTERACTION: Pt was awake and pleasant during nutrition follow-up for LOS. Pt states current appetite is so-so. Note pt is currently NPO x1d, per chart review. Note avg PO intake prior to NPO status was 75% of meals, per chart review. Pt states no issues with n/v/c/d since last assessment. Note last BM was 2/2, and pt not currently on bowel regimen per chart review. Est. kcal needs: [id number] kcal | 15-18 kcal/kg Est. Pro needs: 78-97 g Pro | 0.8-1.0 g Pro/kg PES STATEMENT: Inadequate oral intake (NI-2.1) related to loss of appetite, and NPO status, as evidenced by pt interview, and chart review. INTERVENTION: Note pt is currently NPO, per chart review. Would recommend diet advancement when medically able and as tolerated. Will continue to follow and reassess as pt needs, intake, and status change. Kaveh SANDOVAL, MS RD LD [phone] cell"
[2020-07-08] MEDS: ENOXAPARIN 40 MG/0.4 ML (LOVENOX) SYR SC SCH (14:57)
[2020-07-08 16:00] VITALS: BP 107/75
[2020-07-08] MEDS: LORATADINE (CLARITIN) 10 MG TAB PO SCH (19:19)
[2020-07-08] MEDS: MONTELUKAST 10 MG (SINGULAIR) TAB PO SCH (19:20)
[2020-07-08 20:00] VITALS: BP 112/72
--- NOTE | 2020-07-08 20:24 | Progress Note ---
Subjective Subjective/Events-last exam Post-surgery, has NG in, feeling okay, sitting up in chair at time of my exam. Focused Exam Time of Focused Exam: 07:00 Objective Exam Last Set of Vital Signs Vital Signs Date Time Temp Pulse Resp B/P (MAP) Pulse Ox O2 Delivery O2 Flow Rate FiO2 07/08/20 20:00 36.0 81 18 112/72 (85) 95 Room Air 07/08/20 14:58 2.00 Capillary Refill : Less Than 3 SecondsLess Than 3 Seconds I&O Intake and Output 07/08/20 00:00 Intake Total 3345 ml Output Total 820 ml Balance 2525 ml Intake Oral 0 ml IV Total 3345 ml Output Urine Total 725 ml Drainage Total 95 ml # Voids 5 General: Alert, No Acute Distress Lungs: Clear to Auscultation, Normal Air Movement Heart: Regular Rate, No Murmurs Abdomen: Normal Bowel Sounds, Soft Psych/Mental Status: Mood NL Results/Procedures Lab Laboratory Tests 07/08/20 06:02: White Blood Count 10.2, Red Blood Count 3.10L, Hemoglobin 8.5L, Hematocrit 27L, Mean Corpuscular Volume 87, Mean Corpuscular Hemoglobin 27, Mean Corpuscular Hemoglobin Concent 32, Red Cell Distribution Width 13.2, Platelet Count 256, Mean Platelet Volume 9.3, Immature Granulocyte % (Auto) 2, Neutrophils (%) (Auto) 70, Lymphocytes (%) (Auto) 20, Monocytes (%) (Auto) 7, Eosinophils (%) (Auto) 1, Basophils (%) (Auto) 0, Neutrophils # (Auto) 7.1, Lymphocytes # (Auto) 2.1, Monocytes # (Auto) 0.7, Eosinophils # (Auto) 0.1, Basophils # (Auto) 0.0, Immature Granulocyte # (Auto) 0.2H, Sodium Level 141, Potassium Level 3.2L, Chloride Level 112H, Carbon Dioxide Level 22, Anion Gap 7, Blood Urea Nitrogen 10, Creatinine 0.70, Estimat Glomerular Filtration Rate > 60, BUN/Creatinine Ratio 14, Glucose Level 73, Calcium Level 7.3L, Phosphorus Level 2.8, Magnesium Level 1.6 Microbiology 07/03/20 C. difficile GDH Antigen & Toxins - Final, Complete 07/03/20 Blood Culture - Preliminary, Resulted No growth 07/03/20 Influenza Types A,B Antigen (NIKITA) - Final, Complete 07/03/20 Urine Culture - Final, Complete Victorina glabrata Assessment/Plan Assessment/Plan (1) Aspiration pneumonia Status: Acute Assessment & Plan: On zosyn and flagyl, improving. Leukocytosis resolved. 07/08 remains on zosyn, d/c when okay with surgery Qualifiers: (2) Septic shock Status: Resolved Assessment & Plan: Secondary to aspiration pneumonia, had lactic acidosis, leukocytosis, required pressors. Solu-cortef d/c 07/07. (3) Diarrhea Status: Acute Assessment & Plan: C diff negative. Rectal tube removed, improving (4) Acute renal insufficiency Status: Resolved Assessment & Plan: Secondary to volume depletion (5) Intractable nausea and vomiting Status: Acute Assessment & Plan: Secondary to pyloric stenosis and gastric distension. Improving, is tolerating liquids, plan for surgery today (6) Acquired pyloric stricture Status: Acute Assessment & Plan: Biopsy done, unable to do dilation due to aspiration. Appreciate Surgery recommendations, plan for OR Sunday. 07/08 distal gastrectomy, Bilroth I done today per Dr. Mukherjee (7) Candidal UTI (urinary tract infection) Status: Acute Assessment & Plan: C glabrata. Started on fluconazole on 07/03. (8) DVT prophylaxis Status: Acute Assessment & Plan: Enoxaparin KACEY SEVILLA MD Jul 08, 2020 20:24
[2020-07-09] VITALS (7 sets, daily range): BP systolic 117–135; BP diastolic 74–87
[2020-07-09] MEDS: PIPERACILLIN/TAZOBACTAM (BULK) 4.5 GM in NS (IVPB) 100 ML IV SCH (02:28)
[2020-07-09] MEDS: morphine INJ 4 MG/ML 1 ML (VIAL/SYRINGE) IVP PRN ×3 (02:53→09:26)
[2020-07-09] MEDS: LACTATED RINGERS 1,000 ML IV SCH ×2 (05:09→14:29)
[2020-07-09 05:54] LABS: BASOPHILS % (AUTO) 0 % (0-10); EOSINOPHILS # (AUTO) 0.3 10^3/uL (0.0-0.3); EOSINOPHILS % (AUTO) 4 % (0-10); HEMATOCRIT 26 % (35-52); HEMOGLOBIN 7.8 g/dL (11.5-16.0); LYMPHOCYTES # (AUTO) 1.4 10^3/uL (1.0-4.0); LYMPHOCYTES % (AUTO) 17 % (12-44); MEAN CORPUSCULAR HEMOGLOBIN 27 pg (25-34); MEAN CORPUSCULAR HGB CONC 31 g/dL (32-36); MEAN CORPUSCULAR VOLUME 88 fL (80-99); MEAN PLATELET VOLUME 9.3 fL (9.0-12.2); MONOCYTES # (AUTO) 0.4 10^3/uL (0.0-1.0); MONOCYTES % (AUTO) 5 % (0-12); NEUTROPHILS # (AUTO) 5.7 10^3/uL (1.8-7.8); NEUTROPHILS % (AUTO) 71 % (42-75); PLATELET COUNT 229 10^3/uL (130-400)
[2020-07-09 06:01] LABS: CHLORIDE 109 MMOL/L (98-107); POTASSIUM 3.3 MMOL/L (3.6-5.0); SODIUM 139 MMOL/L (135-145)
[2020-07-09 06:03] LABS: CALCIUM 7.5 MG/DL (8.5-10.1); GLUCOSE 64 MG/DL (70-105)
[2020-07-09 06:05] LABS: CARBON DIOXIDE 22 MMOL/L (21-32)
[2020-07-09 06:07] LABS: CREATININE SERUM 0.62 MG/DL (0.60-1.30); GFR ESTIMATED > 60; PHOSPHORUS 2.2 MG/DL (2.3-4.7)
[2020-07-09 06:08] LABS: BUN/CREATININE RATIO 11
[2020-07-09 06:09] LABS: MAGNESIUM 1.8 MG/DL (1.6-2.4)
[2020-07-09] MEDS: MAGNESIUM 1 GM/100 ML IVPB 100 ML IV SCH (06:27)
[2020-07-09] MEDS: POTASSIUM CL 10MEQ/50ML IVPB 50 ML IV SCH ×3 (06:27→09:25)
[2020-07-09] MEDS: KCL 20 MEQ TAB (K-DUR) PO SCH (06:27)
--- NOTE | 2020-07-09 06:36 | Pulmonary Progress Note ---
Subjective Time Seen by a Provider: 06:35 Subjective/Events-last exam PT is doing better. Sepsis Event Evaluation Height, Weight, BMI Height: 5'3.00" Weight: 160lbs. 0oz. 72.117564xi; 11.79 BMI Method:Stated Focused Exam Time of Focused Exam: 07:00 Exam Exam Vital Signs Date Time Temp Pulse Resp B/P (MAP) Pulse Ox O2 Delivery O2 Flow Rate FiO2 07/09/20 03:53 35.9 83 17 120/75 (90) 97 Room Air 07/09/20 00:00 36.0 86 18 117/78 (91) 97 Room Air 07/08/20 23:20 95 Room Air 07/08/20 20:10 Room Air 07/08/20 20:00 36.0 81 18 112/72 (85) 95 Room Air 07/08/20 16:00 36.0 75 18 107/75 (86) 94 Room Air 07/08/20 14:58 99 Nasal Cannula 2.00 07/08/20 11:26 36.2 92 20 110/65 (80) 94 Room Air 07/08/20 07:58 91 Room Air 07/08/20 07:33 37.6 84 20 111/76 (88) 91 I & O 07/09/20 07:00 Intake Total 2640 ml Output Total 1525 ml Balance 1115 ml Height & Weight Height: 5'3.00" Weight: 160lbs. 0oz. 72.555018rp; 11.79 BMI Method:Stated General Appearance: No Apparent Distress HEENT: PERRL/EOMI Neck: Non Tender, Supple Respiratory: Lungs Clear, Normal Breath Sounds, No Respiratory Distress Cardiovascular: Regular Rate, Rhythm, No Murmur Capillary Refill: Less Than 3 Seconds Peripheral Pulses: 2+ Radial Pulses (R), 2+ Radial Pulses (L) Gastrointestinal: soft, no organomegaly, tenderness (from incision), other (ISAAK with serous fluid, NGT with brownish liquid) Extremity: Non Tender, No Pedal Edema Neurologic/Psychiatric: Alert, Oriented x3, No Motor/Sensory Deficits, Normal Mood/Affect Skin: Warm/Dry, Pallor Lymphatic: No Adenopathy (cervical, axillary, groin) Results Lab Laboratory Tests 07/08/20 06:02 07/09/20 05:45 Assessment/Plan Assessment/Plan Acute sepsis probably secondary to UTI and PNA -Vasquez cultures - Zosyn, and Diflucan -MRSA swab is negative Aspiration PNA during Pyloric dilation per anesthesia - Zosyn, and Diflucan Hypotension -- resolved Pyloric stenosis s/p dilation 07/[address] Mukherjee UTI -Continue Abx and Diflucan Anemia -Monitor -Protonix Hypomag -Replace Hyponatremia -Monitor Elevated LFTs -Monitor -Check Hep panel Hypothyroid -Continue Synthroid Depression Chronic debility TOREY JJ DO Jul 09, 2020 06:36
[2020-07-09] MEDS: toPIRamate 100 MG (TOPAMAX) TAB PO SCH ×3 (09:25→19:49)
[2020-07-09] MEDS: PANTOPRAZOLE 40 MG (PROTONIX) VIAL IVP SCH (09:25)
[2020-07-09] MEDS: LEVOTHYROXINE 88 MCG (LEVOTHORID) TAB PO SCH (09:25)
--- NOTE | 2020-07-09 09:25 | Progress Note - Surgery ---
AILYN PARR MED STUDENT 07/09/20 0925: Subjective Subjective/Events-last exam Pt awake and seated in recliner. Pt doing well this morning. Pain is 4-5/10. Pt notes burping and denies BM/ gas. NG tube and ISAAK tube decreased output from yesterday. No acute events over night. Interested in NG tube removal and advancing diet. Review of Systems General: No Chills, No Fatigue HEENT: No Head Aches, No Visual Changes Pulmonary: No Dyspnea; Cough (when usingIS) Cardiovascular: No: Chest Pain, Palpitations Gastrointestinal: No: Nausea, Vomiting Genitourinary: No Dysuria, No Retention Musculoskeletal: No: back pain, leg pain Neurological: No: Weakness, Confusion Focused Exam Time of Focused Exam: 07:00 Objective Exam Vital Signs Date Time Temp Pulse Resp B/P (MAP) Pulse Ox O2 Delivery O2 Flow Rate FiO2 07/09/20 03:53 35.9 83 17 120/75 (90) 97 Room Air 07/09/20 00:00 36.0 86 18 117/78 (91) 97 Room Air 07/08/20 23:20 95 Room Air 07/08/20 20:10 Room Air 07/08/20 20:00 36.0 81 18 112/72 (85) 95 Room Air 07/08/20 16:00 36.0 75 18 107/75 (86) 94 Room Air 07/08/20 14:58 99 Nasal Cannula 2.00 07/08/20 11:26 36.2 92 20 110/65 (80) 94 Room Air I & O 07/09/20 07:00 Intake Total 2640 ml Output Total 1525 ml Balance 1115 ml Capillary Refill : Less Than 3 SecondsLess Than 3 Seconds General Appearance: No Apparent Distress, WD/WN HEENT: PERRL/EOMI, Moist Mucous Membranes Neck: Normal Inspection, Non Tender, Supple Respiratory: Chest Non Tender, Lungs Clear, Normal Breath Sounds, No Accessory Muscle Use, No Respiratory Distress Cardiovascular: Regular Rate, Rhythm, No Gallop, No Murmur Peripheral Pulses: 2+ Radial Pulses (R), 2+ Radial Pulses (L) Gastrointestinal: soft, no organomegaly, tenderness (from incision), other (ISAAK with serous fluid, NGT with brownish liquid (decreased from yesterday)) Extremity: Non Tender, No Pedal Edema Neurologic/Psychiatric: Alert, Oriented x3, No Motor/Sensory Deficits, Normal Mood/Affect Skin: Warm/Dry, Pallor Lymphatic: No Adenopathy (cervical, axillary, groin) Results Lab Laboratory Tests 07/09/20 05:45: White Blood Count 8.0, Red Blood Count 2.92L, Hemoglobin 7.8L, Hematocrit 26L, Mean Corpuscular Volume 88, Mean Corpuscular Hemoglobin 27, Mean Corpuscular Hemoglobin Concent 31L, Red Cell Distribution Width 13.0, Platelet Count 229, Mean Platelet Volume 9.3, Immature Granulocyte % (Auto) 3, Neutrophils (%) (Auto) 71, Lymphocytes (%) (Auto) 17, Monocytes (%) (Auto) 5, Eosinophils (%) (Auto) 4, Basophils (%) (Auto) 0, Neutrophils # (Auto) 5.7, Lymphocytes # (Auto) 1.4, Monocytes # (Auto) 0.4, Eosinophils # (Auto) 0.3, Basophils # (Auto) 0.0, Immature Granulocyte # (Auto) 0.2H, Sodium Level 139, Potassium Level 3.3L, Chloride Level 109H, Carbon Dioxide Level 22, Anion Gap 8, Blood Urea Nitrogen 7, Creatinine 0.62, Estimat Glomerular Filtration Rate > 60, BUN/Creatinine Ratio 11, Glucose Level 64L, Calcium Level 7.5L, Phosphorus Level 2.2L, Magnesium Level 1.8 Microbiology 07/03/20 C. difficile GDH Antigen & Toxins - Final, Complete 07/03/20 Blood Culture - Preliminary, Resulted No growth 07/03/20 Influenza Types A,B Antigen (NIKITA) - Final, Complete 07/03/20 Urine Culture - Final, Complete Victorina glabrata Assessment/Plan Assessment/Plan Assessment/Plan Pyloric Stenosis S/P Bilroth I, continue NGT, pain management, ISAAK drain, NPO JOSE MUKHERJEE DO 07/09/20 1214: Subjective Time Seen by a Provider: 10:01 Subjective/Events-last exam Pt seen and examined, no new complaints but would like to get the NGT out. Pain mostly controlled with meds. Review of Systems General: No Chills; Fatigue HEENT: No Head Aches, No Visual Changes Pulmonary: No Dyspnea; Cough (when usingIS) Cardiovascular: No: Chest Pain, Palpitations Gastrointestinal: Abdominal Pain; No: Nausea, Vomiting Objective Exam General Appearance: No Apparent Distress, WD/WN HEENT: No Moist Mucous Membranes (appear very dry) Respiratory: Lungs Clear, Normal Breath Sounds, No Accessory Muscle Use, No Respiratory Distress Cardiovascular: Regular Rate, Rhythm, No Murmur Gastrointestinal: soft, no organomegaly, tenderness (from incision), other (ISAAK with serous fluid, NGT with brownish liquid (decreased from yesterday)) Assessment/Plan Assessment/Plan Assessment/Plan S/P Bilroth I Plan to do SBFT to assess the anastomosis tomorrow and then hopefully can start clears. Continue NGT to LIWS, monitor ISAAK drain, IV fluids, pain meds and anti- emetics as needed. Supervisory-Addendum Brief Verification & Attestation Participated in pt care: history, MDM, physical Personally performed: exam, history, MDM Care discussed with: Medical Student Procedures: n/a Verification and Attestation of Medical Student E/M Service A medical student performed and documented this service. I then reviewed and verified all information documented by the medical student and made modifications to such information, when appropriate. I personally performed a physical exam, medical decision making and then discussed any differences between the notes and made revisions as necessary to create one note. Jose Mukherjee , 07/09/20 , 12:14 AILYN PARR MED STUDENT Jul 09, 2020 09:25 JOSE MUKHERJEE DO Jul 09, 2020 12:14
[2020-07-09] MEDS: PROPRANOLOL 20 MG (INDERAL) TABLET PO SCH ×2 (09:26→19:49)
[2020-07-09] MEDS: FLUCONAZOLE 200 MG/100 ML 50 ML, EMPTY IV BAG (PVC) 1 EA IV SCH ×2 (09:30)
--- NOTE | 2020-07-09 12:23 | NUR ---
Initial Visit by PRN Chaplain Dimitri May. No Spiritual affiliation shared this visit. Pt demonstrates openness to Manager Of Training And Development support.
[2020-07-09] MEDS: ENOXAPARIN 40 MG/0.4 ML (LOVENOX) SYR SC SCH (14:29)
[2020-07-09] MEDS: HYDROcodone/APAP 5 MG/325 MG (LORTAB) TAB PO PRN ×2 (14:29→19:49)
--- NOTE | 2020-07-09 15:22 | Progress Note ---
Subjective Subjective/Events-last exam Afebrile, states feeling okay. Belching but doesn't think she has passed gas. Pain is controlled. Focused Exam Time of Focused Exam: 07:00 Objective Exam Last Set of Vital Signs Vital Signs Date Time Temp Pulse Resp B/P (MAP) Pulse Ox O2 Delivery O2 Flow Rate FiO2 07/09/20 12:00 36.0 84 16 135/87 (103) 98 Room Air 07/08/20 14:58 2.00 Capillary Refill : Less Than 3 SecondsLess Than 3 Seconds I&O Intake and Output 07/09/20 00:00 Intake Total 2640 ml Output Total 1035 ml Balance 1605 ml Intake Oral 20 ml IV Total 2620 ml Output Urine Total 700 ml Gastric Drainage Total 225 ml Drainage Total 110 ml # Voids 4 General: Alert, No Acute Distress Lungs: Clear to Auscultation, Normal Air Movement Heart: Regular Rate, No Murmurs Extremities: Other (trace edema) Psych/Mental Status: Mood NL Results/Procedures Lab Laboratory Tests 07/09/20 05:45: White Blood Count 8.0, Red Blood Count 2.92L, Hemoglobin 7.8L, Hematocrit 26L, Mean Corpuscular Volume 88, Mean Corpuscular Hemoglobin 27, Mean Corpuscular Hemoglobin Concent 31L, Red Cell Distribution Width 13.0, Platelet Count 229, Mean Platelet Volume 9.3, Immature Granulocyte % (Auto) 3, Neutrophils (%) (Auto) 71, Lymphocytes (%) (Auto) 17, Monocytes (%) (Auto) 5, Eosinophils (%) (Auto) 4, Basophils (%) (Auto) 0, Neutrophils # (Auto) 5.7, Lymphocytes # (Auto) 1.4, Monocytes # (Auto) 0.4, Eosinophils # (Auto) 0.3, Basophils # (Auto) 0.0, Immature Granulocyte # (Auto) 0.2H, Sodium Level 139, Potassium Level 3.3L, Chloride Level 109H, Carbon Dioxide Level 22, Anion Gap 8, Blood Urea Nitrogen 7, Creatinine 0.62, Estimat Glomerular Filtration Rate > 60, BUN/Creatinine Ratio 11, Glucose Level 64L, Calcium Level 7.5L, Phosphorus Level 2.2L, Magnesium Level 1.8 Microbiology 07/03/20 C. difficile GDH Antigen & Toxins - Final, Complete 07/03/20 Blood Culture - Preliminary, Resulted No growth 07/03/20 Influenza Types A,B Antigen (NIKITA) - Final, Complete 07/03/20 Urine Culture - Final, Complete Victorina glabrata Assessment/Plan Assessment/Plan (1) Aspiration pneumonia Status: Resolved Assessment & Plan: On zosyn and flagyl, improving. Leukocytosis resolved. 07/08 remains on zosyn, d/c when okay with surgery 07/09 completed zosyn course Qualifiers: (2) Septic shock Status: Resolved Assessment & Plan: Secondary to aspiration pneumonia, had lactic acidosis, leukocytosis, required pressors. Solu-cortef d/c 07/07. (3) Diarrhea Status: Acute Assessment & Plan: C diff negative. Rectal tube removed, improving 07/09 no BM yet since surgery per patient (4) Acute renal insufficiency Status: Resolved Assessment & Plan: Secondary to volume depletion (5) Intractable nausea and vomiting Status: Acute Assessment & Plan: Secondary to pyloric stenosis and gastric distension. Improving, is tolerating liquids, plan for surgery today (6) Acquired pyloric stricture Status: Acute Assessment & Plan: Biopsy done, unable to do dilation due to aspiration. Appreciate Surgery recommendations, plan for OR Sunday. 07/08 distal gastrectomy, Bilroth I done today per Dr. Mukherjee (7) Candidal UTI (urinary tract infection) Status: Acute Assessment & Plan: C glabrata. Started on fluconazole on 07/03. (8) DVT prophylaxis Status: Acute Assessment & Plan: Enoxaparin KACEY SEVILLA MD Jul 09, 2020 15:22
[2020-07-09] MEDS: LORATADINE (CLARITIN) 10 MG TAB PO SCH (19:49)
[2020-07-09] MEDS: MONTELUKAST 10 MG (SINGULAIR) TAB PO SCH (19:49)
[2020-07-10] MEDS: HYDROcodone/APAP 5 MG/325 MG (LORTAB) TAB PO PRN ×5 (00:15→21:18)
[2020-07-10] MEDS: morphine INJ 4 MG/ML 1 ML (VIAL/SYRINGE) IVP PRN ×2 (03:13→10:46)
[2020-07-10 05:41] LABS: BASOPHILS % (AUTO) 0 % (0-10); EOSINOPHILS # (AUTO) 0.3 10^3/uL (0.0-0.3); EOSINOPHILS % (AUTO) 3 % (0-10); HEMATOCRIT 24 % (35-52); HEMOGLOBIN 7.5 g/dL (11.5-16.0); LYMPHOCYTES # (AUTO) 1.8 10^3/uL (1.0-4.0); LYMPHOCYTES % (AUTO) 18 % (12-44); MEAN CORPUSCULAR HEMOGLOBIN 27 pg (25-34); MEAN CORPUSCULAR HGB CONC 31 g/dL (32-36); MEAN CORPUSCULAR VOLUME 86 fL (80-99); MEAN PLATELET VOLUME 9.1 fL (9.0-12.2); MONOCYTES # (AUTO) 0.4 10^3/uL (0.0-1.0); MONOCYTES % (AUTO) 4 % (0-12); NEUTROPHILS # (AUTO) 7.4 10^3/uL (1.8-7.8); NEUTROPHILS % (AUTO) 71 % (42-75); PLATELET COUNT 252 10^3/uL (130-400); WHITE BLOOD COUNT 10.5 10^3/uL (4.3-11.0)
[2020-07-10 05:51] LABS: CHLORIDE 106 MMOL/L (98-107); POTASSIUM 3.4 MMOL/L (3.6-5.0); SODIUM 136 MMOL/L (135-145)
[2020-07-10 05:52] LABS: CALCIUM 7.6 MG/DL (8.5-10.1)
[2020-07-10 05:54] LABS: CARBON DIOXIDE 19 MMOL/L (21-32)
[2020-07-10 05:56] LABS: CREATININE SERUM 0.59 MG/DL (0.60-1.30); GFR ESTIMATED > 60; PHOSPHORUS 2.2 MG/DL (2.3-4.7)
[2020-07-10 05:57] LABS: BUN/CREATININE RATIO 8
[2020-07-10 05:59] LABS: MAGNESIUM 1.5 MG/DL (1.6-2.4)
[2020-07-10 06:05] LABS: GLUCOSE 55 MG/DL (70-105)
--- NOTE | 2020-07-10 06:16 | NUR ---
notified DR. WASHBURN OF CRITICAL GLUCOSE OF 55, ORDERED TO CHANGE FLUIDS TO D5 LR @ 125
[2020-07-10] MEDS: LACTATED RINGERS 1,000 ML IV SCH ×4 (06:19→22:31)
[2020-07-10] MEDS: KCL 20 MEQ TAB (K-DUR) PO SCH (06:21)
[2020-07-10] MEDS ORDERED: D5 LR IV SOLUTION 1,000 ML IV ONE (06:22)
[2020-07-10] MEDS ORDERED: MAGNESIUM 1 GM/100 ML IVPB 100 ML IV ONE ×2 (06:30→07:30)
[2020-07-10] MEDS ORDERED: POTASSIUM CL 10MEQ/50ML IVPB 50 ML IV ONE ×2 (06:30→07:30)
[2020-07-10] MEDS: MAGNESIUM 1 GM/100 ML IVPB 100 ML IV SCH ×3 (06:31→13:28)
[2020-07-10] MEDS: POTASSIUM CL 10MEQ/50ML IVPB 50 ML IV SCH (06:31)
[2020-07-10] MEDS: D5 LR IV SOLUTION 1,000 ML IV SCH ×2 (06:32→17:19)
[2020-07-10 08:00] VITALS: BP 125/90
[2020-07-10] MEDS: LEVOTHYROXINE 88 MCG (LEVOTHORID) TAB PO SCH (08:10)
[2020-07-10] MEDS: toPIRamate 100 MG (TOPAMAX) TAB PO SCH ×3 (08:10→20:07)
[2020-07-10] MEDS: PROPRANOLOL 20 MG (INDERAL) TABLET PO SCH ×2 (08:10→20:07)
[2020-07-10] MEDS: PANTOPRAZOLE 40 MG (PROTONIX) VIAL IVP SCH (08:11)
[2020-07-10] MEDS: FLUCONAZOLE 200 MG/100 ML 50 ML, EMPTY IV BAG (PVC) 1 EA IV SCH ×2 (08:12)
--- NOTE | 2020-07-10 08:34 | Progress Note - Surgery ---
AILYN PARR MED STUDENT 07/10/20 0834: Subjective Date Seen by a Provider: Jul 10, 2020 Time Seen by a Provider: 08:27 Subjective/Events-last exam Pt awake and seated in recliner upon entry. Pt interested in removing NG tube (only producing clear green product). ISAAK tube drained 150 mL serous fluid this AM. Pt notes 2 BM and flatus. Pt also going to get up to have a shower today. Pt notes pain as low as 5 and high as 8/ 10 when pain medication wears off. Pt had episode of hypoglycemia (55) where Dr. Haq ordered D5 LR. Review of Systems General: No Chills; Fatigue HEENT: No Head Aches, No Sore Throat Pulmonary: No Dyspnea; Cough (non productive) Cardiovascular: No: Chest Pain, Palpitations Gastrointestinal: No: Nausea, Vomiting Genitourinary: No Dysuria, No Retention Musculoskeletal: No: back pain, leg pain Neurological: No: Weakness, Numbness Focused Exam Time of Focused Exam: 07:00 Objective Exam Vital Signs Date Time Temp Pulse Resp B/P (MAP) Pulse Ox O2 Delivery O2 Flow Rate FiO2 07/09/20 23:36 37.4 84 20 124/75 (91) 99 Room Air 07/09/20 19:50 Room Air 07/09/20 19:49 36.0 79 19 123/77 (92) 99 Room Air 07/09/20 16:30 36.3 80 18 121/74 (90) 98 Room Air 07/09/20 12:00 36.0 84 16 135/87 (103) 98 Room Air I & O 07/10/20 07:00 Intake Total 250 ml Output Total 2175 ml Balance -1925 ml Capillary Refill : Less Than 3 SecondsLess Than 3 Seconds General Appearance: No Apparent Distress, WD/WN HEENT: PERRL/EOMI; No Moist Mucous Membranes (appear very dry) Neck: Normal Inspection, Non Tender, Supple Respiratory: Lungs Clear, Normal Breath Sounds, No Accessory Muscle Use, No Respiratory Distress Cardiovascular: Regular Rate, Rhythm, No Gallop, No Murmur Peripheral Pulses: 2+ Radial Pulses (R), 2+ Radial Pulses (L) Gastrointestinal: soft, no organomegaly, tenderness (from incision), other (ISAAK with serous fluid, NGT with clear green liquid (decreased more from yesterday)) Extremity: Non Tender, Pedal Edema (+3 pitting), Swelling (LE +1 pitting) Neurologic/Psychiatric: Alert, Oriented x3, No Motor/Sensory Deficits, Normal Mood/Affect Skin: Warm/Dry, Pallor Lymphatic: No Adenopathy (cervical, axillary, groin) Results Lab Laboratory Tests 07/10/20 05:30: White Blood Count 10.5, Red Blood Count 2.79L, Hemoglobin 7.5L, Hematocrit 24L, Mean Corpuscular Volume 86, Mean Corpuscular Hemoglobin 27, Mean Corpuscular Hemoglobin Concent 31L, Red Cell Distribution Width 13.0, Platelet Count 252, Mean Platelet Volume 9.1, Immature Granulocyte % (Auto) 5, Neutrophils (%) (Auto) 71, Lymphocytes (%) (Auto) 18, Monocytes (%) (Auto) 4, Eosinophils (%) (Auto) 3, Basophils (%) (Auto) 0, Neutrophils # (Auto) 7.4, Lymphocytes # (Auto) 1.8, Monocytes # (Auto) 0.4, Eosinophils # (Auto) 0.3, Basophils # (Auto) 0.0, Immature Granulocyte # (Auto) 0.5H, Sodium Level 136, Potassium Level 3.4L, Chloride Level 106, Carbon Dioxide Level 19L, Anion Gap 11, Blood Urea Nitrogen 5L, Creatinine 0.59L, Estimat Glomerular Filtration Rate > 60, BUN/Creatinine Ratio 8, Glucose Level 55*L, Calcium Level 7.6L, Phosphorus Level 2.2L, Magnesium Level 1.5L Microbiology 07/03/20 C. difficile GDH Antigen & Toxins - Final, Complete 07/03/20 Blood Culture - Final, Complete No growth 07/03/20 Influenza Types A,B Antigen (NIKITA) - Final, Complete 07/03/20 Urine Culture - Final, Complete Victorina glabrata Assessment/Plan Assessment/Plan Assessment/Plan S/P Bilroth I Plan to do SBFT to assess the anastomosis and then hopefully can start clears. Continue NGT to LIWS, monitor ISAAK drain, IV fluids, pain meds and anti-emetics as needed. JOSE MUKHERJEE DO 07/10/20 1116: Subjective Time Seen by a Provider: 10:39 Subjective/Events-last exam Pt seen and examined, asking about getting NGT removed. Pain is minimal. Review of Systems General: No Chills; Fatigue HEENT: No Head Aches Pulmonary: No Dyspnea; Cough (non productive) Cardiovascular: No: Chest Pain, Palpitations Gastrointestinal: No: Nausea, Vomiting Objective Exam General Appearance: No Apparent Distress, WD/WN HEENT: PERRL/EOMI Respiratory: Lungs Clear, Normal Breath Sounds, No Accessory Muscle Use, No Respiratory Distress Cardiovascular: Regular Rate, Rhythm, No Murmur Gastrointestinal: soft, no organomegaly, tenderness (from incision), other (ISAAK with serous fluid, NGT with clear green liquid (decreased compared to yesterday)) Assessment/Plan Assessment/Plan Assessment/Plan S/P Bilroth I Plan to do SBFT to assess the anastomosis; but will need to wait 5 days from procedure (hopefully sunday) and then hopefully can start clears. Continue NGT to LIWS, monitor ISAAK drain, IV fluids, pain meds and anti-emetics as needed. Supervisory-Addendum Brief Verification & Attestation Participated in pt care: history, MDM, physical Personally performed: exam, history, MDM Care discussed with: Medical Student Procedures: n/a Verification and Attestation of Medical Student E/M Service A medical student performed and documented this service. I then reviewed and verified all information documented by the medical student and made modifications to such information, when appropriate. I personally performed a physical exam, medical decision making and then discussed any differences between the notes and made revisions as necessary to create one note. Jose Mukherjee , 07/10/20 , 11:15 AILYN PARR MED STUDENT Jul 10, 2020 08:34 JOSE MUKHERJEE DO Jul 10, 2020 11:16
--- NOTE | 2020-07-10 10:45 | NUR ---
RECEIVED REPORT SHEETS FROM [facility],
--- NOTE | 2020-07-10 10:56 | Progress Note - Hospitalist ---
Subjective HPI/CC On Admission Date Seen by Provider: Jul 10, 2020 Time Seen by Provider: 10:15 CC: Recurrent nausea and vomiting HPI: This is a 40yoWF clinic pt of Dr. Villarreal who has had multiple gastrointestinal problems who is set to have a pyloric dilation by Dr. Mukherjee next week who had 4 ER visits to address the nausea and vomiting. She was admitted, placed on IV fluids, potassium supplementation initiated today because its 2.[address] Mukherjee intends to do the procedure tomorrow. I restarted all of her home psych meds. Pt appears to be very chronically ill and older than 40. Subjective/Events-last exam Patient has an NG tube placed and is without specific complaint today. She looks uncomfortable but denies excessive pain Review of Systems Gastrointestinal: Abdominal Pain Neurological: Weakness Focused Exam Time of Focused Exam: 07:00 Objective Exam Vital Signs Vital Signs Date Time Temp Pulse Resp B/P (MAP) Pulse Ox O2 Delivery O2 Flow Rate FiO2 07/10/20 08:00 36.2 80 20 125/90 (102) 100 Room Air 07/08/20 14:58 2.00 Capillary Refill : Less Than 3 SecondsLess Than 3 Seconds General Appearance: Obese Neck: Supple Respiratory: Lungs Clear, Normal Breath Sounds, No Accessory Muscle Use, No Respiratory Distress Cardiovascular: No Gallop Gastrointestinal: Abnormal Bowel Sounds Extremity: Pedal Edema Results/Procedures Lab Laboratory Tests 07/10/20 05:30 Patient resulted labs reviewed. Assessment/Plan Assessment and Plan Assess & Plan/Chief Complaint Status post section of pyloric stenosis with Billroth I Aspiration pneumonia secondary to intractable vomiting from pyloric stenosis-on Flagyl and Zosyn Obesity Hypomagnesemia we will replace Hypoglycemia change to D5 LR Yeast UTI on fluconazole Currently stable advance diet per surgery Diagnosis/Problems Diagnosis/Problems (1) Aspiration pneumonia Status: Acute Qualifiers: Aspiration pneumonia type: due to gastric secretions Laterality: left (2) Acquired pyloric stricture Status: Acute (3) Candidal UTI (urinary tract infection) Status: Acute SOPHY WASHBURN MD Jul 10, 2020 10:56
[2020-07-10] MEDS ORDERED: POTASSIUM PHOSPHATE INJ 15 MM in NS (IVPB) 250 ML IV ONE (11:00)
--- NOTE | 2020-07-10 12:00 | NUR ---
BG TUBE CONNECTED TO LOW INTERM SUCTION, BROWNISH GREEN RETURN, ABD DRESSING DRY AND INTACT, ISAAK DRAIN PATENT, RIGHT IJ WITHOUT REDNESS, CALL LIGHT WITHIN REACH
[2020-07-10] MEDS: ENOXAPARIN 40 MG/0.4 ML (LOVENOX) SYR SC SCH (14:48)
[2020-07-10 15:20] VITALS: BP 112/74
[2020-07-10] MEDS: MONTELUKAST 10 MG (SINGULAIR) TAB PO SCH (20:07)
[2020-07-10] MEDS: LORATADINE (CLARITIN) 10 MG TAB PO SCH (20:07)
[2020-07-10 20:11] VITALS: BP 110/67
[2020-07-11 00:19] VITALS: BP 116/76
[2020-07-11] MEDS: HYDROcodone/APAP 5 MG/325 MG (LORTAB) TAB PO PRN ×5 (01:57→20:45)
[2020-07-11] MEDS: D5 LR IV SOLUTION 1,000 ML IV SCH ×4 (01:58→20:45)
[2020-07-11 05:24] LABS: BASOPHILS % (AUTO) 0 % (0-10); EOSINOPHILS # (AUTO) 0.3 10^3/uL (0.0-0.3); EOSINOPHILS % (AUTO) 2 % (0-10); HEMATOCRIT 26 % (35-52); HEMOGLOBIN 8.4 g/dL (11.5-16.0); LYMPHOCYTES # (AUTO) 1.9 10^3/uL (1.0-4.0); LYMPHOCYTES % (AUTO) 16 % (12-44); MEAN CORPUSCULAR HEMOGLOBIN 27 pg (25-34); MEAN CORPUSCULAR HGB CONC 32 g/dL (32-36); MEAN CORPUSCULAR VOLUME 84 fL (80-99); MEAN PLATELET VOLUME 9.4 fL (9.0-12.2); MONOCYTES # (AUTO) 0.5 10^3/uL (0.0-1.0); MONOCYTES % (AUTO) 5 % (0-12); NEUTROPHILS # (AUTO) 8.6 10^3/uL (1.8-7.8); NEUTROPHILS % (AUTO) 72 % (42-75); PLATELET COUNT 363 10^3/uL (130-400); WHITE BLOOD COUNT 11.8 10^3/uL (4.3-11.0)
[2020-07-11 05:35] LABS: ALBUMIN 2.3 GM/DL (3.2-4.5)
[2020-07-11 05:36] LABS: CHLORIDE 106 MMOL/L (98-107); POTASSIUM 3.4 MMOL/L (3.6-5.0); SODIUM 135 MMOL/L (135-145)
[2020-07-11 05:37] LABS: CALCIUM 7.8 MG/DL (8.5-10.1)
[2020-07-11 05:38] LABS: GLUCOSE 129 MG/DL (70-105); TOTAL PROTEIN 4.7 GM/DL (6.4-8.2)
[2020-07-11 05:39] LABS: CARBON DIOXIDE 20 MMOL/L (21-32)
[2020-07-11 05:40] LABS: BILIRUBIN,TOTAL 0.3 MG/DL (0.1-1.0)
[2020-07-11 05:41] LABS: PHOSPHORUS 2.8 MG/DL (2.3-4.7)
[2020-07-11 05:42] LABS: ALKALINE PHOSPHATASE 199 U/L (40-136); CREATININE SERUM 0.62 MG/DL (0.60-1.30); GFR ESTIMATED > 60
[2020-07-11 05:43] LABS: BUN/CREATININE RATIO 3
[2020-07-11 05:45] LABS: ALANINE AMINOTRANSFERASE 42 U/L (0-55); MAGNESIUM 1.7 MG/DL (1.6-2.4)
[2020-07-11] MEDS: MAGNESIUM 1 GM/100 ML IVPB 100 ML IV SCH (05:55)
[2020-07-11] MEDS: KCL 20 MEQ TAB (K-DUR) PO SCH (05:55)
[2020-07-11] MEDS: LACTATED RINGERS 1,000 ML IV SCH ×3 (06:01→23:56)
[2020-07-11] MEDS: POTASSIUM CL 10MEQ/50ML IVPB 50 ML IV SCH ×3 (06:10→07:55)
[2020-07-11] MEDS ORDERED: POTASSIUM CL 10MEQ/50ML IVPB 50 ML IV SCH (07:00)
[2020-07-11 07:55] VITALS: BP 121/75
[2020-07-11] MEDS: FLUCONAZOLE 200 MG/100 ML 50 ML, EMPTY IV BAG (PVC) 1 EA IV SCH ×2 (08:33)
[2020-07-11] MEDS: PANTOPRAZOLE 40 MG (PROTONIX) VIAL IVP SCH (08:33)
[2020-07-11] MEDS: PROPRANOLOL 20 MG (INDERAL) TABLET PO SCH ×2 (08:33→20:09)
[2020-07-11] MEDS: LEVOTHYROXINE 88 MCG (LEVOTHORID) TAB PO SCH (08:34)
[2020-07-11] MEDS: toPIRamate 100 MG (TOPAMAX) TAB PO SCH ×3 (08:34→20:09)
--- NOTE | 2020-07-11 11:11 | Progress Note - Hospitalist ---
Subjective HPI/CC On Admission Date Seen by Provider: Jul 11, 2020 Time Seen by Provider: 10:45 CC: Recurrent nausea and vomiting HPI: This is a 40yoWF clinic pt of Dr. Villarreal who has had multiple gastrointestinal problems who is set to have a pyloric dilation by Dr. Mukherjee next week who had 4 ER visits to address the nausea and vomiting. She was admitted, placed on IV fluids, potassium supplementation initiated today because its 2.[address] Mukherjee intends to do the procedure tomorrow. I restarted all of her home psych meds. Pt appears to be very chronically ill and older than 40. Subjective/Events-last exam Patient says she feels like she is going to pass out. She tells nursing staff that she like a Paiz catheter so she does not have to get up. She asked me if she can go home yet. She does not seem to be very knowledgeable about this process. I discussed with her that she will need to have the NG tube for tomorrow small bowel follow-through. Discussed with her that she needs to get up and exercise and walk to get stronger to be able to go home when she is ready. Vitals and labs are all reviewed. Review of Systems Neurological: Weakness Focused Exam Time of Focused Exam: 07:00 Objective Exam Vital Signs Vital Signs Date Time Temp Pulse Resp B/P (MAP) Pulse Ox O2 Delivery O2 Flow Rate FiO2 07/11/20 08:00 Room Air 07/11/20 07:55 36.0 69 16 121/75 (90) 99 07/08/20 14:58 2.00 Capillary Refill : Less Than 3 SecondsLess Than 3 Seconds General Appearance: No Apparent Distress, WD/WN HEENT: Normal ENT Inspection Neck: Limited Range of Motion Respiratory: Lungs Clear, Normal Breath Sounds, No Accessory Muscle Use, No Respiratory Distress Cardiovascular: Regular Rate, Rhythm, No Gallop, No Murmur, Normal Peripheral Pulses Gastrointestinal: Soft, Abnormal Bowel Sounds Extremity: No Pedal Edema Results/Procedures Lab Laboratory Tests 07/11/20 05:17 Patient resulted labs reviewed. Assessment/Plan Assessment and Plan Assess & Plan/Chief Complaint Status post section of pyloric stenosis with Billroth I-small bowel follow- through planned for tomorrow before NG is discontinued Aspiration pneumonia secondary to intractable vomiting from pyloric stenosis-on Flagyl and Zosyn Obesity-encouraged to ambulate Hypomagnesemia we will replace Hypoglycemia changed to D5 LR improvement in her blood sugars Yeast UTI on fluconazole Diagnosis/Problems Diagnosis/Problems (1) Aspiration pneumonia Status: Acute Qualifiers: Aspiration pneumonia type: due to gastric secretions Laterality: left (2) Acquired pyloric stricture Status: Acute (3) Candidal UTI (urinary tract infection) Status: Acute SOPHY WASHBURN MD Jul 11, 2020 11:11
--- NOTE | 2020-07-11 12:06 | Progress Note - Surgery ---
Subjective Time Seen by a Provider: 11:34 Subjective/Events-last exam Pt seen and examined, she has no new complaints; just wants NGT out and wants to know when she is going home. Review of Systems General: No Chills, No Night Sweats; Fatigue Pulmonary: No Dyspnea, No Cough Cardiovascular: No: Chest Pain, Palpitations Gastrointestinal: Abdominal Pain (minimal at incision); No: Nausea, Vomiting Focused Exam Time of Focused Exam: 07:00 Objective Exam Vital Signs Date Time Temp Pulse Resp B/P (MAP) Pulse Ox O2 Delivery O2 Flow Rate FiO2 07/11/20 08:00 Room Air 07/11/20 07:55 36.0 69 16 121/75 (90) 99 Room Air 07/11/20 00:19 36.0 73 18 116/76 (89) 97 Room Air 07/10/20 20:11 73 110/67 (81) 07/10/20 20:10 Room Air 07/10/20 15:20 36.4 76 16 112/74 (87) 100 Room Air I & O 07/11/20 07:00 Intake Total 1805 ml Output Total 4180 ml Balance -2375 ml Capillary Refill : Less Than 3 SecondsLess Than 3 Seconds General Appearance: No Apparent Distress, WD/WN Respiratory: Lungs Clear, Normal Breath Sounds, No Accessory Muscle Use, No Respiratory Distress Cardiovascular: Regular Rate, Rhythm, No Murmur Peripheral Pulses: 2+ Radial Pulses (R), 2+ Radial Pulses (L) Gastrointestinal: soft, no organomegaly, tenderness (from incision), other (ISAAK with serous fluid, NGT with clear yellow-green liquid ) Extremity: Pedal Edema Neurologic/Psychiatric: Alert, Oriented x3 Skin: Warm/Dry, Pallor Results Lab Laboratory Tests 07/11/20 05:17: White Blood Count 11.8H, Red Blood Count 3.13L, Hemoglobin 8.4L, Hematocrit 26L, Mean Corpuscular Volume 84, Mean Corpuscular Hemoglobin 27, Mean Corpuscular Hemoglobin Concent 32, Red Cell Distribution Width 13.2, Platelet Count 363, Mean Platelet Volume 9.4, Immature Granulocyte % (Auto) 4, Neutrophils (%) (Auto) 72, Lymphocytes (%) (Auto) 16, Monocytes (%) (Auto) 5, Eosinophils (%) (Auto) 2, Basophils (%) (Auto) 0, Neutrophils # (Auto) 8.6H, Lymphocytes # (Auto) 1.9, Monocytes # (Auto) 0.5, Eosinophils # (Auto) 0.3, Basophils # (Auto) 0.0, Immature Granulocyte # (Auto) 0.5H, Sodium Level 135, Potassium Level 3.4L, Chloride Level 106, Carbon Dioxide Level 20L, Anion Gap 9, Blood Urea Nitrogen < 2L, Creatinine 0.62, Estimat Glomerular Filtration Rate > 60, BUN/Creatinine Ratio 3, Glucose Level 129H, Calcium Level 7.8L, Corrected Calcium 9.2, Phosphorus Level 2.8, Magnesium Level 1.7, Total Bilirubin 0.3, Aspartate Amino Transf (AST/SGOT) 23, Alanine Aminotransferase (ALT/SGPT) 42, Alkaline Phosp hatase 199H, Total Protein 4.7L, Albumin 2.3L Microbiology 07/03/20 C. difficile GDH Antigen & Toxins - Final, Complete 07/03/20 Blood Culture - Final, Complete No growth 07/03/20 Influenza Types A,B Antigen (NIKITA) - Final, Complete 07/03/20 Urine Culture - Final, Complete Victorina glabrata Assessment/Plan Assessment/Plan Assessment/Plan S/P Bilroth I Plan to do SBFT to assess the anastomosis in AM and then hopefully can start clears. Continue NGT to LIWS, monitor ISAAK drain, IV fluids, pain meds and anti- emetics as needed. JOSE ROGER DO Jul 11, 2020 12:06
[2020-07-11] MEDS: ENOXAPARIN 40 MG/0.4 ML (LOVENOX) SYR SC SCH (15:03)
[2020-07-11 16:00] VITALS: BP 127/76
[2020-07-11] MEDS: MONTELUKAST 10 MG (SINGULAIR) TAB PO SCH (20:09)
[2020-07-11] MEDS: MELATONIN 3 MG TABLET PO PRN (20:09)
[2020-07-11] MEDS: LORATADINE (CLARITIN) 10 MG TAB PO SCH (20:09)
[2020-07-11 23:58] VITALS: BP 119/70
[2020-07-12] MEDS: HYDROcodone/APAP 5 MG/325 MG (LORTAB) TAB PO PRN ×4 (01:56→22:26)
[2020-07-12 04:59] LABS: BASOPHILS % (AUTO) 0 % (0-10); EOSINOPHILS # (AUTO) 0.3 10^3/uL (0.0-0.3); EOSINOPHILS % (AUTO) 2 % (0-10); HEMATOCRIT 27 % (35-52); HEMOGLOBIN 8.3 g/dL (11.5-16.0); LYMPHOCYTES # (AUTO) 2.8 10^3/uL (1.0-4.0); LYMPHOCYTES % (AUTO) 20 % (12-44); MEAN CORPUSCULAR HEMOGLOBIN 27 pg (25-34); MEAN CORPUSCULAR HGB CONC 31 g/dL (32-36); MEAN CORPUSCULAR VOLUME 86 fL (80-99); MEAN PLATELET VOLUME 9.8 fL (9.0-12.2); MONOCYTES # (AUTO) 0.8 10^3/uL (0.0-1.0); MONOCYTES % (AUTO) 6 % (0-12); NEUTROPHILS # (AUTO) 9.7 10^3/uL (1.8-7.8); NEUTROPHILS % (AUTO) 69 % (42-75); PLATELET COUNT 301 10^3/uL (130-400); WHITE BLOOD COUNT 14.1 10^3/uL (4.3-11.0)
[2020-07-12 05:30] LABS: CHLORIDE 109 MMOL/L (98-107); POTASSIUM 3.8 MMOL/L (3.6-5.0); SODIUM 139 MMOL/L (135-145)
[2020-07-12 05:32] LABS: GLUCOSE 119 MG/DL (70-105)
[2020-07-12 05:33] LABS: CARBON DIOXIDE 20 MMOL/L (21-32)
[2020-07-12 05:35] LABS: PHOSPHORUS 3.8 MG/DL (2.3-4.7)
[2020-07-12] MEDS: LACTATED RINGERS 1,000 ML IV SCH (05:35)
[2020-07-12] MEDS: KCL 20 MEQ TAB (K-DUR) PO SCH (05:35)
[2020-07-12] MEDS: POTASSIUM CL 10MEQ/50ML IVPB 50 ML IV SCH (05:35)
[2020-07-12 05:36] LABS: CREATININE SERUM 0.64 MG/DL (0.60-1.30); GFR ESTIMATED > 60
[2020-07-12 05:37] LABS: BUN/CREATININE RATIO 3
[2020-07-12 05:38] LABS: MAGNESIUM 1.5 MG/DL (1.6-2.4)
--- NOTE | 2020-07-12 06:30 | Pulmonary Progress Note ---
Subjective Time Seen by a Provider: 06:27 Subjective/Events-last exam PT is doing better from pulmonary standpoint. Currently 100% on RA. Sepsis Event Evaluation Height, Weight, BMI Height: 5'3.00" Weight: 160lbs. 0oz. 72.871705pf; 11.79 BMI Method:Stated Focused Exam Time of Focused Exam: 07:00 Exam Exam Vital Signs Date Time Temp Pulse Resp B/P (MAP) Pulse Ox O2 Delivery O2 Flow Rate FiO2 07/11/20 23:58 35.9 82 20 119/70 (86) 100 Room Air 07/11/20 20:15 Room Air 07/11/20 16:00 36.0 72 18 127/76 (93) 100 Room Air 07/11/20 08:00 Room Air 07/11/20 07:55 36.0 69 16 121/75 (90) 99 Room Air I & O 07/12/20 07:00 Intake Total 0 ml Output Total 2580 ml Balance -2580 ml Height & Weight Height: 5'3.00" Weight: 160lbs. 0oz. 72.749403zz; 11.79 BMI Method:Stated General Appearance: No Apparent Distress, WD/WN Respiratory: Lungs Clear, Normal Breath Sounds, No Accessory Muscle Use, No Respiratory Distress Cardiovascular: Regular Rate, Rhythm, No Murmur Capillary Refill: Less Than 3 Seconds Peripheral Pulses: 2+ Radial Pulses (R), 2+ Radial Pulses (L) Gastrointestinal: soft, no organomegaly, tenderness (from incision), other (ISAAK with serous fluid, NGT with clear yellow-green liquid ) Extremity: Pedal Edema Neurologic/Psychiatric: Alert, Oriented x3 Skin: Warm/Dry, Pallor Results Lab Laboratory Tests 07/11/20 05:17 07/12/20 04:50 Assessment/Plan Assessment/Plan Acute sepsis probably secondary to UTI and PNA -Vasquez cultures Aspiration PNA during Pyloric dilation per anesthesia - S/p Zosyn, -Diflucan -Repeat CXR Hypotension -- resolved Pyloric stenosis s/p dilation 07/[address] Mukherjee UTI Anemia -Monitor -Protonix Elevated LFTs -Monitor -Check Hep panel Hypothyroid -Continue Synthroid Depression Chronic debility TOREY JJ DO Jul 12, 2020 06:30
[2020-07-12] MEDS: MAGNESIUM 1 GM/100 ML IVPB 100 ML IV SCH ×3 (06:46→07:31)
[2020-07-12] MEDS: D5 LR IV SOLUTION 1,000 ML IV SCH ×3 (06:47→22:26)
--- NOTE | 2020-07-12 07:12 | Progress Note - Surgery ---
AILYN PARR MED STUDENT 07/12/20 0712: Subjective Date Seen by a Provider: Jul 12, 2020 Time Seen by a Provider: 07:04 Subjective/Events-last exam Pt awake upon entry. Pt c/o spitting up yellow sputum when she coughs and headache. Pt states she is doing fair and pain is so so off and on. Pain about 4-5/10 and under control. Review of Systems General: No Chills, No Fatigue HEENT: Head Aches; No Sore Throat Pulmonary: No Dyspnea; Cough Cardiovascular: No: Chest Pain, Palpitations Gastrointestinal: No: Nausea, Vomiting, Abdominal Pain Genitourinary: No Dysuria, No Retention Musculoskeletal: No: back pain, leg pain Neurological: No: Weakness, Numbness Focused Exam Time of Focused Exam: 07:00 Objective Exam Vital Signs Date Time Temp Pulse Resp B/P (MAP) Pulse Ox O2 Delivery O2 Flow Rate FiO2 07/11/20 23:58 35.9 82 20 119/70 (86) 100 Room Air 07/11/20 20:15 Room Air 07/11/20 16:00 36.0 72 18 127/76 (93) 100 Room Air 07/11/20 08:00 Room Air 07/11/20 07:55 36.0 69 16 121/75 (90) 99 Room Air I & O 07/12/20 07:00 Intake Total 0 ml Output Total 2810 ml Balance -2810 ml Capillary Refill : Less Than 3 SecondsLess Than 3 Seconds General Appearance: No Apparent Distress, WD/WN HEENT: PERRL/EOMI; No Moist Mucous Membranes Neck: Non Tender, Supple Respiratory: Lungs Clear, No Accessory Muscle Use, No Respiratory Distress, Wheezing (slight on expiration (right)) Cardiovascular: Regular Rate, Rhythm, No Murmur Peripheral Pulses: 2+ Radial Pulses (R), 2+ Radial Pulses (L) Gastrointestinal: soft, no organomegaly, tenderness (from incision), other (ISAAK with serous fluid, NGT with clear yellow-green liquid ) Extremity: Non Tender, Pedal Edema Neurologic/Psychiatric: Alert, Oriented x3, No Motor/Sensory Deficits, Normal Mood/Affect Skin: Warm/Dry, Pallor Lymphatic: No Adenopathy Results Lab Laboratory Tests 07/12/20 04:50: White Blood Count 14.1H, Red Blood Count 3.13L, Hemoglobin 8.3L, Hematocrit 27L, Mean Corpuscular Volume 86, Mean Corpuscular Hemoglobin 27, Mean Corpuscular Hemoglobin Concent 31L, Red Cell Distribution Width 13.6, Platelet Count 301, Mean Platelet Volume 9.8, Immature Granulocyte % (Auto) 4, Neutrophils (%) (Auto) 69, Lymphocytes (%) (Auto) 20, Monocytes (%) (Auto) 6, Eosinophils (%) (Auto) 2, Basophils (%) (Auto) 0, Neutrophils # (Auto) 9.7H, Lymphocytes # (Auto) 2.8, Monocytes # (Auto) 0.8, Eosinophils # (Auto) 0.3, Basophils # (Auto) 0.0, Immature Granulocyte # (Auto) 0.6H, Sodium Level 139, Potassium Level 3.8, Chloride Level 109H, Carbon Dioxide Level 20L, Anion Gap 10, Blood Urea Nitrogen < 2L, Creatinine 0.64, Estimat Glomerular Filtration Rate > 60, BUN/Creatinine Ratio 3, Glucose Level 119H, Calcium Level 8.0L, Phosphorus Level 3.8, Magnesium Level 1.5L Microbiology 07/03/20 C. difficile GDH Antigen & Toxins - Final, Complete 07/03/20 Blood Culture - Final, Complete No growth 07/03/20 Influenza Types A,B Antigen (NIKITA) - Final, Complete 07/03/20 Urine Culture - Final, Complete Victorina glabrata Assessment/Plan Assessment/Plan Assessment/Plan S/P Bilroth I Plan to do SBFT to assess the anastomosis Sunday AM and then hopefully can start clears. Continue NGT to LIWS, monitor ISAAK drain, IV fluids, pain meds and anti- emetics as needed. JOSE MUKHERJEE DO 07/12/20 1231: Subjective Time Seen by a Provider: 12:20 Subjective/Events-last exam Pt seen and examined, ready to get NGT out; no other complaints. Review of Systems General: No Chills, No Fatigue Pulmonary: No Dyspnea; Cough Cardiovascular: No: Chest Pain, Palpitations Gastrointestinal: Abdominal Pain (very minimal); No: Nausea, Vomiting Objective Exam General Appearance: No Apparent Distress, WD/WN Respiratory: Lungs Clear, No Accessory Muscle Use, No Respiratory Distress Cardiovascular: Regular Rate, Rhythm, No Murmur Gastrointestinal: soft, no organomegaly, tenderness (from incision), other (ISAAK with serous fluid, NGT with clear yellow-green liquid ) Assessment/Plan Assessment/Plan Assessment/Plan S/P Bilroth I SBFT/UGI showed no leak, will d/c NGT and start clear liquid diet. Pt encouraged to ambulate and use IS. Supervisory-Addendum Brief Verification & Attestation Participated in pt care: history, MDM, physical Personally performed: exam, history, MDM Care discussed with: Medical Student Procedures: n/a Verification and Attestation of Medical Student E/M Service A medical student performed and documented this service. I then reviewed and verified all information documented by the medical student and made modifications to such information, when appropriate. I personally performed a physical exam, medical decision making and then discussed any differences be tween the notes and made revisions as necessary to create one note. Jose Mukherjee , 07/12/20 , 12:30 AILYN PARR MED STUDENT Jul 12, 2020 07:12 JOSE MUKHERJEE DO Jul 12, 2020 12:31
[2020-07-12 08:00] VITALS: BP 121/70
[2020-07-12] MEDS: LEVOTHYROXINE 88 MCG (LEVOTHORID) TAB PO SCH (08:39)
[2020-07-12] MEDS: PANTOPRAZOLE 40 MG (PROTONIX) VIAL IVP SCH (08:39)
[2020-07-12] MEDS: toPIRamate 100 MG (TOPAMAX) TAB PO SCH ×3 (08:39→20:03)
[2020-07-12] MEDS: morphine INJ 4 MG/ML 1 ML (VIAL/SYRINGE) IVP PRN (08:39)
[2020-07-12] MEDS: PROPRANOLOL 20 MG (INDERAL) TABLET PO SCH ×2 (08:39→20:03)
[2020-07-12] MEDS ORDERED: DIATRIZOATE MEGLUM/SODIUM 37% 120 ML (GASTROGRAFIN) NG ONE (08:45)
[2020-07-12] MEDS: FLUCONAZOLE 200 MG/100 ML 50 ML, EMPTY IV BAG (PVC) 1 EA IV SCH ×2 (09:28)
--- NOTE | 2020-07-12 09:31 | Diagnostic Imaging Report ---
Indication: Pneumonia. Time of exam: 8:56 AM Correlation is made with prior chest from 07/05/2020. NG tube passes below the diaphragm. There are drains in the upper abdomen. Surgical clips in gallbladder fossa noted. There does appear to be some infiltrate or atelectasis in the left base and left perihilar region. This is improved since examination one week earlier. Right lung is clear. There is no effusion or pneumothorax. Right-sided line has tip overlying SVC right atrial junction. IMPRESSION: Partial clearing of left-sided pulmonary infiltrates when compared to examination from one week earlier. Dictated by: Dictated on workstation # [id number]
--- NOTE | 2020-07-12 09:48 | Diagnostic Imaging Report ---
Indication: Recent surgery with Billroth I. Study is performed to evaluate anastomosis. Total of 60 mL of Gastrografin and 60 mL water was injected in to the patient's indwelling NG tube and fluoroscopic evaluation and spot films of the upper abdomen was performed. Total of 2 minutes and 3 seconds of fluoroscopic time was utilized. Preliminary radiograph demonstrates midline skin judith. There is an NG tube passing below the diaphragm. Surgical drain in the upper abdomen is noted. There are surgical clips in the right upper quadrant. Bowel gas pattern is unremarkable. Postcontrast injection images demonstrate Gastrografin contrast throughout the stomach. There is prompt emptying through the anastomosis into the small bowel. No extravasation or evidence of anastomotic leak is identified. Impression: Unremarkable limited upper GI utilizing Gastrografin contrast. There is no evidence of anastomotic leak. Dictated by: Dictated on workstation # [id number]
--- NOTE | 2020-07-12 10:13 | Progress Note - Hospitalist ---
Subjective HPI/CC On Admission Date Seen by Provider: Jul 12, 2020 Time Seen by Provider: 10:00 CC: Recurrent nausea and vomiting HPI: This is a 40yoWF clinic pt of Dr. Villarreal who has had multiple gastrointestinal problems who is set to have a pyloric dilation by Dr. Mukherjee next week who had 4 ER visits to address the nausea and vomiting. She was admitted, placed on IV fluids, potassium supplementation initiated today because its 2.[address] Mukherjee intends to do the procedure tomorrow. I restarted all of her home psych meds. Pt appears to be very chronically ill and older than 40. Subjective/Events-last exam Pt has an NG tube and wants it out Decreased motivation Paiz catheter still in place Not proactive regarding any activity at all PT, OT and rehab referral Labs reviewed Review of Systems General: Fatigue, Malaise Focused Exam Time of Focused Exam: 07:00 Objective Exam Vital Signs Vital Signs Date Time Temp Pulse Resp B/P (MAP) Pulse Ox O2 Delivery O2 Flow Rate FiO2 07/13/20 00:00 36.0 65 18 99/59 (72) 97 Room Air 07/08/20 14:58 2.00 Capillary Refill : Less Than 3 SecondsLess Than 3 Seconds General Appearance: No Apparent Distress, WD/WN, Chronically ill Respiratory: Chest Non Tender, Lungs Clear, Normal Breath Sounds, No Accessory Muscle Use, No Respiratory Distress Cardiovascular: Regular Rate, Rhythm, No Edema, No Gallop, No JVD, No Murmur, Normal Peripheral Pulses Neurologic/Psychiatric: Alert, Oriented x3, Depressed Affect Results/Procedures Lab Laboratory Tests 07/13/20 05:40 Patient resulted labs reviewed. Assessment/Plan Assessment and Plan Assess & Plan/Chief Complaint Assessment: Severe sepsis due to left sided PNA HAP type from non-ambulatory during hospital stay and remaining on her left side every time I assessed her Severe N/V refractory Pyloric stenosis Depression Chronic debility Severe hypokalemia Severe emotional problems Plan: Monitor closely Replace potassium 07/02/20: EGD today DC soon 07/03/20: Move to ICU Severe sepsis from left sided PNA Monitor closely IV abx 07/04/20: PNA treatment IVF Hypotension continues 07/12/20: Very chronically ill Poor motivation Diagnosis/Problems Diagnosis/Problems (1) Intractable nausea and vomiting Status: Acute (2) Acquired pyloric stricture Status: Acute VARELA,OWEN DO Jul 12, 2020 10:13
[2020-07-12] MEDS: ENOXAPARIN 40 MG/0.4 ML (LOVENOX) SYR SC SCH (14:17)
[2020-07-12 16:16] VITALS: BP 100/62
[2020-07-12] MEDS: LORATADINE (CLARITIN) 10 MG TAB PO SCH (20:03)
[2020-07-12] MEDS: MONTELUKAST 10 MG (SINGULAIR) TAB PO SCH (20:03)
[2020-07-12] MEDS: MELATONIN 3 MG TABLET PO PRN (20:03)
[2020-07-13] VITALS: BP 99/59
[2020-07-13] MEDS: HYDROcodone/APAP 5 MG/325 MG (LORTAB) TAB PO PRN ×2 (02:37→08:36)
[2020-07-13 05:51] LABS: BASOPHILS % (AUTO) 0 % (0-10); EOSINOPHILS # (AUTO) 0.2 10^3/uL (0.0-0.3); EOSINOPHILS % (AUTO) 3 % (0-10); HEMATOCRIT 24 % (35-52); HEMOGLOBIN 7.5 g/dL (11.5-16.0); LYMPHOCYTES % (AUTO) 21 % (12-44); MEAN CORPUSCULAR HEMOGLOBIN 27 pg (25-34); MEAN CORPUSCULAR HGB CONC 32 g/dL (32-36); MEAN CORPUSCULAR VOLUME 87 fL (80-99); MEAN PLATELET VOLUME 9.7 fL (9.0-12.2); MONOCYTES # (AUTO) 0.6 10^3/uL (0.0-1.0); MONOCYTES % (AUTO) 6 % (0-12); NEUTROPHILS # (AUTO) 6.2 10^3/uL (1.8-7.8); NEUTROPHILS % (AUTO) 67 % (42-75); PLATELET COUNT 298 10^3/uL (130-400); WHITE BLOOD COUNT 9.3 10^3/uL (4.3-11.0)
[2020-07-13 06:01] LABS: ALBUMIN 2.2 GM/DL (3.2-4.5); CHLORIDE 111 MMOL/L (98-107); POTASSIUM 3.4 MMOL/L (3.6-5.0); SODIUM 139 MMOL/L (135-145)
[2020-07-13 06:02] LABS: CALCIUM 7.4 MG/DL (8.5-10.1)
[2020-07-13 06:03] LABS: GLUCOSE 88 MG/DL (70-105); TOTAL PROTEIN 4.1 GM/DL (6.4-8.2)
[2020-07-13 06:04] LABS: CARBON DIOXIDE 20 MMOL/L (21-32)
[2020-07-13 06:05] LABS: BILIRUBIN,TOTAL 0.3 MG/DL (0.1-1.0)
[2020-07-13 06:07] LABS: ALKALINE PHOSPHATASE 192 U/L (40-136); GFR ESTIMATED > 60
[2020-07-13 06:08] LABS: BUN/CREATININE RATIO 3
[2020-07-13 06:10] LABS: ALANINE AMINOTRANSFERASE 62 U/L (0-55); MAGNESIUM 1.5 MG/DL (1.6-2.4)
[2020-07-13] MEDS: MAGNESIUM 1 GM/100 ML IVPB 100 ML IV SCH ×2 (06:21→06:42)
[2020-07-13] MEDS: POTASSIUM CL 10MEQ/50ML IVPB 50 ML IV SCH (06:21)
[2020-07-13] MEDS: KCL 20 MEQ TAB (K-DUR) PO SCH (06:21)
[2020-07-13] MEDS: D5 LR IV SOLUTION 1,000 ML IV SCH (06:21)
[2020-07-13] MEDS ORDERED: KCL 20 MEQ TAB (K-DUR) PO ONE (07:00)
--- NOTE | 2020-07-13 07:55 | Progress Note - Surgery ---
AILYN PARR MED STUDENT 07/13/20 0755: Subjective Date Seen by a Provider: Jul 13, 2020 Time Seen by a Provider: 07:50 Subjective/Events-last exam Pt awake and lying in bed upon entry. Pt states she is doing alright and happy that NG tube has been removed. Pt tolerating clear liquids well without N/V. ISAAK tube decreasing drainage from 125 ml removed to 20 ml yesterday. Pain controlled at a 3/10 with medication. Notes ambulating more. Notes loose BM yesterday and passing gas. Pt insisting on being released from the hospital today. Review of Systems General: No Chills, No Fatigue HEENT: No Head Aches, No Dysphasia Pulmonary: No Dyspnea, No Cough Cardiovascular: No: Chest Pain, Palpitations Gastrointestinal: Diarrhea; No: Nausea, Vomiting, Abdominal Pain Genitourinary: No Dysuria, No Retention Musculoskeletal: neck pain; No: back pain, leg pain Neurological: No: Weakness, Numbness Focused Exam Time of Focused Exam: 07:00 Objective Exam Vital Signs Date Time Temp Pulse Resp B/P (MAP) Pulse Ox O2 Delivery O2 Flow Rate FiO2 07/13/20 00:00 36.0 65 18 99/59 (72) 97 Room Air 07/12/20 20:05 Room Air 07/12/20 16:16 36.2 64 18 100/62 (75) 99 Room Air 07/12/20 08:00 Room Air 07/12/20 08:00 35.9 81 18 121/70 (87) 99 Room Air I & O 07/13/20 07:00 Intake Total 509 ml Output Total 1290 ml Balance -781 ml Capillary Refill : Less Than 3 SecondsLess Than 3 Seconds General Appearance: No Apparent Distress, WD/WN, Chronically ill HEENT: PERRL/EOMI, Moist Mucous Membranes Neck: Normal Inspection, Non Tender, Supple Respiratory: Chest Non Tender, Lungs Clear, Normal Breath Sounds, No Accessory Muscle Use, No Respiratory Distress Cardiovascular: Regular Rate, Rhythm, No Edema, No Gallop, No Murmur Peripheral Pulses: 2+ Radial Pulses (R), 2+ Radial Pulses (L) Gastrointestinal: soft, no organomegaly, tenderness (from incision), other (ISAAK with serous fluid (decreased) ) Extremity: Normal Inspection, Normal Range of Motion, Non Tender, Pedal Edema Neurologic/Psychiatric: Alert, Oriented x3, No Motor/Sensory Deficits, Depressed Affect Skin: Normal Color, Warm/Dry Lymphatic: No Adenopathy (cervical, inguinal, or axila) Results Lab Laboratory Tests 07/13/20 05:40: White Blood Count 9.3, Red Blood Count 2.75L, Hemoglobin 7.5L, Hematocrit 24L, Mean Corpuscular Volume 87, Mean Corpuscular Hemoglobin 27, Mean Corpuscular Hemoglobin Concent 32, Red Cell Distribution Width 13.8, Platelet Count 298, Mean Platelet Volume 9.7, Immature Granulocyte % (Auto) 3, Neutrophils (%) (Auto) 67, Lymphocytes (%) (Auto) 21, Monocytes (%) (Auto) 6, Eosinophils (%) (Auto) 3, Basophils (%) (Auto) 0, Neutrophils # (Auto) 6.2, Lymphocytes # (Auto) 2.0, Monocytes # (Auto) 0.6, Eosinophils # (Auto) 0.2, Basophils # (Auto) 0.0, Immature Granulocyte # (Auto) 0.3H, Sodium Level 139, Potassium Level 3.4L, Chloride Level 111H, Carbon Dioxide Level 20L, Anion Gap 8, Blood Urea Nitrogen < 2L, Creatinine 0.60, Estimat Glomerular Filtration Rate > 60, BUN/Creatinine Ratio 3, Glucose Level 88, Calcium Level 7.4L, Corrected Calcium 8.8, Magnesium Level 1.5L, Total Bilirubin 0.3, Aspartate Amino Transf (AST/SGOT) 106H, Alanine Aminotransferase (ALT/SGPT) 62H, Alkaline Phosphatase 192H, Total Protein 4.1L, Albumin 2.2L Microbiology 07/03/20 C. difficile GDH Antigen & Toxins - Final, Complete 07/03/20 Blood Culture - Final, Complete No growth 07/03/20 Influenza Types A,B Antigen (NIKITA) - Final, Complete 07/03/20 Urine Culture - Final, Complete Victorina glabrata Assessment/Plan Assessment/Plan Assessment/Plan S/P Bilroth I SBFT/UGI showed no leak, clear liquid diet. Pt encouraged to ambulate and use IS. Decreasing ISAAK tube drainage (125 ml to 20 ml) JOSE MUKHERJEE DO 07/13/20 1215: Subjective Time Seen by a Provider: 12:01 Subjective/Events-last exam Pt seen and examined, no complaints and wants to go home. Review of Systems General: No Chills Pulmonary: No Dyspnea, No Cough Cardiovascular: No: Chest Pain, Palpitations Gastrointestinal: No: Nausea, Vomiting, Abdominal Pain Objective Exam General Appearance: No Apparent Distress, WD/WN HEENT: Moist Mucous Membranes Respiratory: Lungs Clear, Normal Breath Sounds, No Accessory Muscle Use, No Respiratory Distress Cardiovascular: Regular Rate, Rhythm, No Murmur Gastrointestinal: soft, no organomegaly, tenderness (from incision - minimal), other (ISAAK with serous fluid less than 20ml over past 24 hours) Assessment/Plan Assessment/Plan Assessment/Plan S/P Bilroth I Plan to dc IV and dc home. Supervisory-Addendum Brief Verification & Attestation Participated in pt care: history, MDM, physical Personally performed: exam, history, MDM Care discussed with: Medical Student Procedures: n/a Verification and Attestation of Medical Student E/M Service A medical student performed and documented this service. I then reviewed and ve rified all information documented by the medical student and made modifications to such information, when appropriate. I personally performed a physical exam, medical decision making and then discussed any differences between the notes and made revisions as necessary to create one note. Jose Mukherjee , 07/13/20 , 12:15 AILYN PARR MED STUDENT Jul 13, 2020 07:55 JOSE MUKHERJEE DO Jul 13, 2020 12:15
[2020-07-13 08:00] VITALS: BP 95/59
[2020-07-13] MEDS: PROPRANOLOL 20 MG (INDERAL) TABLET PO SCH ×2 (08:37→08:45)
[2020-07-13] MEDS: PANTOPRAZOLE 40 MG (PROTONIX) VIAL IVP SCH (08:37)
[2020-07-13] MEDS: LEVOTHYROXINE 88 MCG (LEVOTHORID) TAB PO SCH (08:37)
[2020-07-13] MEDS: toPIRamate 100 MG (TOPAMAX) TAB PO SCH ×2 (08:37→12:36)
[2020-07-13] MEDS: FLUCONAZOLE 200 MG/100 ML 50 ML, EMPTY IV BAG (PVC) 1 EA IV SCH ×2 (08:37)
--- NOTE | 2020-07-13 10:30 | Physical Therapy Evaluation ---
PT Evaluation-General Medical Diagnosis Admission Date Jul 03, 2020 at 12:04 Medical Diagnosis: pyloric stricture Onset Date: Jul 03, 2020 Therapy Diagnosis Therapy Diagnosis: debility Height/Weight Height (Feet): 5 Height (Inches): 3.00 Weight (Pounds): 160 Weight (Ounces): 0 Precautions Precautions/Isolations: Fall Prevention, Standard Precautions Referral Physician: Malcolm Reason for Referral: Evaluation/Treatment (verbal order) Medical History Pertinent Medical History: Smoking Current History 40yo with hx of chronic GI complaints admitted on 06/30 and is now s/p pyloric dilation per Dr. Mukherjee 07/02. acute sepsis, tachycardia and hypotension Reviewed History: Yes Social History Home: Single Level Current Living Status: Spouse Entry Into Home: Ramp Prior Prior Level of Function SCALE: Activities may be completed with or without assistive devices. 9-Ajaidpmqzf-keiwnng completes the activity by him/herself with no assistance from a helper. 5-Set-up or Clean-up Assistance-helper sets up or cleans up; patient completes activity. Tornado assists only prior to or following the activity. 4-Supervision or Touching Assistance-helper provides verbal cues and/or touching/steadying and/or contact guard assistance as patient completes activity. Assistance may be provided throughout the activity or intermittently. 3-Partial/Moderate Assistance-helper does LESS THAN HALF the effort. Tornado lifts, holds or supports trunk or limbs, but provides less than half the effort. 2-Substantial/Maximal Assistance-helper does MORE THAN HALF the effort. Tornado lifts or holds trunk or limbs and provides more than half the effort. 0-Yghdqmsga-lvdpwk does ALL the effort. Patient does none of the effort to complete the activity. Or, the assistance of 2 or more helpers is required for the patient to complete the activity. If activity was not attempted, code reason: 7-Patient Refused. 9-Not Applicable-not attempted and the patient did not perform the activity before the current illness, exacerbation or injury. 10-Not Attempted due to Environmental Limitations-(lack of equipment, weather restraints, etc.). 88-Not Attempted due to Medical Conditions or Safety Concerns. Bed Mobility: 6 Transfers (B,C,W/C): 6 Gait: 6 Indoor Mobility (Ambulation): Independent Prior Devices Use: None PT Evaluation-Current Subjective Patient agrees to PT. No c/o Objective Patient Orientation: Normal For Age Attachments: IV ROM/Strength ROM Lower Extremities bilateral LE WFL Strength Lower Extremities 4/5 grossly bilateral LE Integumentary/Posture Integumentary refer to nursing notes Bowel Incontinence: No Bladder Incontinence: No Posture WFL Neuromuscular (Tone, Coordination, Reflexes) grossly intact Sensory Vision: Wears Glasses Hearing: Functional Transfers Sit to Lying (QC): 6 Lying to Sitting/Side of Bed(Q: 6 Sit to Stand (QC): 6 Chair/Rep-qm-Bzxyy Xfer(QC): 6 Gait Does the Patient Walk?: Yes Mode of Locomotion: Walk Anticipated Mode of Locomotion: Walk Walk 10 feet (QC): 6 Walk 50 ft with 2 Turns(QC): 6 Walk 150 ft (QC): 6 Distance: 300' Gait Assistive Device: FWW Comments/Gait Description safe and functional with no deviation Balance Sitting Static: Normal Sitting Dynamic: Normal Standing Static: Normal Standing Dynamic: Normal Picking up an Object (QC): 6 Assessment/Needs 40 y.o. female, is currently at [facility] with all gross motor skills and does not require skilled therapy intervention. PT instructed nursing and spouse to have patient ambulate PRN in hallway with or without FWW. Both voice understanding. Rehab Potential: Fair PT Plan Treatment/Plan Treatment Plan: Discontinue PT, goals met Treatment Duration: Jul 13, 2020 Frequency: 1 time per week Estimated Hrs Per Day: .25 hour per day Patient and/or Family Agrees t: Yes Discharge Recommendations Therapy Discharge Recommendati: Home & Family Time/GCodes Time In: 1005 Time Out: 1016 Total Billed Treatment Time: 11 Total Billed Treatment 1 visit [facility] 11 min KIRILL GARCIA PT Jul 13, 2020 10:30
--- NOTE | 2020-07-13 10:48 | D/C HH Face to Face Order ---
D/C Face to Face Orders Reconcile Patient Problems Problems Reviewed?: Yes Instructions for Patient Home Health Patient Instructions/FollowUp: [facility] [address] Mukherjee as scheduled Physician to follow Patient: [facility] Discharge Diet for Home: Eat Small Frequent Meals, Soft Diet Patient Problems: Pyloric stricture PNA Debility Patient Data-Allergies,Ht & Wt Patient Allergies: Coded Allergies: zolmitriptan (Verified Adverse Reaction, Unknown, 09/29/19) Height (Feet): 5 Height (Inches): 3.00 Weight (Pounds): 160 Weight (Ounces): 0 Home Health Need/Face to Face Date of Face to Face: Jul 13, 2020 Clinical Findings: Generalized weakness and fatigue, Instability, Muscle wea kness, Unsteady gait I have seen Pt wayn-pz-nffm: Yes Discharged To: Home Diagnosis/Conditions: Pyloric stricture PNA Debility Patient is Homebound due to: Shayy fall risk due to instabilty, Muscle weakness Homebound Status Due to the above stated illness, injury or surgical procedure (medical condition or diagnosis) and associated clinical findings, the patient is homebound because of his/her inability to leave home except with aid of a supportive device and/or person AND leaving the home requires a considerable and taxing effort or is medically contraindicated. Pt req the following assistanc: Walker Home Health Nursing Orders Home Health Services Order: Nursing Services, Production Technologist-Evaluate & Treat, Physical Therapy-Evaluate & Treat Home Health Infusion Therapy Line Start Date: Jul 01, 2020 Certify Stmt I certify that this patient is under my care and that I, a nurse practitioner or a physician; a teachers' assistant working with me, had a face to face encounter that - meets the physician face to face encounter requirements with this patient as dated. OWEN VARELA DO Jul 13, 2020 10:48
[2020-07-13] MEDS ORDERED: ACHD5005 PO (10:49)
[2020-07-13] MEDS ORDERED: PANT40TA2 PO (10:49)
--- NOTE | 2020-07-13 10:51 | Discharge Summary ---
Discharge Summary Hospital Course Was the Problem List Reviewed?: Yes Problems/Dx: (1) Aspiration pneumonia Status: Acute Qualifiers: (2) Acquired pyloric stricture Status: Acute (3) Candidal UTI (urinary tract infection) Status: Acute Hospital Course Date of Admission: Jul 03, 2020 at 12:04 Admission Diagnosis : Family Physician/Provider: Socrates Villarreal MD Date of Discharge: 07/13/20 Discharge Diagnosis: pyloric stricture, severe sepsis from PNA Hospital Course: Hospital Course: Pt had a lengthy hospital course for 11 days after she was admitted for a pyloric stricture. She underwent procedure for that with dilation two times while hospitalized. She did have an episode of hospital acquired pneumonia required ICU stay with severe sepsis protocol, IV fluids, and presser therapy. She overall did very well, returned back to her baseline, PT and OT consulted, and everyone was in agreement with DC plan home as long as it was okay with Dr. Mukherjee. I did order home health and a walker. Labs and Pending Lab Test: Laboratory Tests 07/13/20 05:40: White Blood Count 9.3, Red Blood Count 2.75L, Hemoglobin 7.5L, Hematocrit 24L, Mean Corpuscular Volume 87, Mean Corpuscular Hemoglobin 27, Mean Corpuscular Hemoglobin Concent 32, Red Cell Distribution Width 13.8, Platelet Count 298, Mean Platelet Volume 9.7, Immature Granulocyte % (Auto) 3, Neutrophils (%) (Auto) 67, Lymphocytes (%) (Auto) 21, Monocytes (%) (Auto) 6, Eosinophils (%) (Auto) 3, Basophils (%) (Auto) 0, Neutrophils # (Auto) 6.2, Lymphocytes # (Auto) 2.0, Monocytes # (Auto) 0.6, Eosinophils # (Auto) 0.2, Basophils # (Auto) 0.0, Immature Granulocyte # (Auto) 0.3H, Sodium Level 139, Potassium Level 3.4L, Chloride Level 111H, Carbon Dioxide Level 20L, Anion Gap 8, Blood Urea Nitrogen < 2L, Creatinine 0.60, Estimat Glomerular Filtration Rate > 60, BUN/Creatinine Ratio 3, Glucose Level 88, Calcium Level 7.4L, Corrected Calcium 8.8, Magnesium Level 1.5L, Total Bilirubin 0.3, Aspartate Amino Transf (AST/SGOT) 106H, Alanine Aminotransferase (ALT/SGPT) 62H, Alkaline Phosphatase 192H, Total Protein 4.1L, Albumin 2.2L Microbiology 07/03/20 C. difficile GDH Antigen & Toxins - Final, Complete 07/03/20 Blood Culture - Final, Complete No growth 07/03/20 Influenza Types A,B Antigen (NIKITA) - Final, Complete 07/03/20 Urine Culture - Final, Complete Victorina glabrata Home Meds Active Protonix (Pantoprazole Sodium) 40 Mg Tablet.dr 40 Mg PO BID HYDROcodone/APAP 5 MG/325 MG TAB (Acetaminophen/Hydrocodone Bitart) 1 Tab Tab 1 Tab PO Q4H PRN Reported Excedrin Migraine Caplet (Aspirin/Acetaminophen/Caffeine) 1 Each Tablet 2 Each PO Q6-8HR PRN Vitamin D2 (Ergocalciferol (Vitamin D2)) 1,250 Mcg Capsule 1,250 Mcg PO WEEK Klor-Con 10 (Potassium Chloride) 10 Meq Tablet.er 10 Meq PO DAILY Ondansetron Odt (Ondansetron) 8 Mg Tab.rapdis 8 Mg PO Q8H PRN Sucralfate 1 Gm Tablet 1 Gm PO DAILY Propranolol HCl 20 Mg Tablet 20 Mg PO BID Pantoprazole Sodium 20 Mg Tablet.dr 20 Mg PO BID Levothyroxine Sodium 88 Mcg Tablet 88 Mcg PO DAILY Ferrous Sulfate 325 Mg Tablet 325 Mg PO DAILY Cetirizine HCl 10 Mg Tablet 10 Mg PO HS Citalopram HBr (Citalopram Hydrobromide) 40 Mg Tablet 40 Mg PO HS Montelukast Sodium 10 Mg Tablet 10 Mg PO HS Topiramate 100 Mg Tablet 100 Mg PO TID Assessment/Pt Instructions [facility] [address] Mukherjee 1 week Discharge Planning: <30 minutes discharge planning Discharge Physical Examination Vital Signs Vital Signs Date Time Temp Pulse Resp B/P (MAP) Pulse Ox O2 Delivery O2 Flow Rate FiO2 07/13/20 08:00 36.8 72 18 95/59 (71) 94 07/13/20 08:00 Room Air 2.00 General Appearance: No Apparent Distress, WD/WN Respiratory: Lungs Clear Cardiovascular: Regular Rate, Rhythm Neurologic/Psychiatric: Alert, Oriented x3, No Motor/Sensory Deficits, Depressed Affect Allergies: Coded Allergies: zolmitriptan (Verified Adverse Reaction, Unknown, 09/29/19) Discharge Summary Date of Admission Jul 03, 2020 at 12:04 Date of Discharge Discharge Date: Jul 13, 2021 Admission Diagnosis Assessment: Severe N/V refractory Pyloric stenosis Depression Chronic debility Severe hypokalemia Plan: Monitor closely Replace potassium Discharge Diagnosis Assessment: Severe sepsis due to left sided PNA HAP type from non-ambulatory during hospital stay and remaining on her left side every time I assessed her Severe N/V refractory Pyloric stenosis Depression Chronic debility Severe hypokalemia Severe emotional problems Plan: Monitor closely Replace potassium 07/02/20: EGD today DC soon 07/03/20: Move to ICU Severe sepsis from left sided PNA Monitor closely IV abx 07/04/20: PNA treatment IVF Hypotension continues 07/12/20: Very chronically ill Poor motivation (1) Aspiration pneumonia Status: Acute Qualifiers: (2) Acquired pyloric stricture Status: Acute (3) Candidal UTI (urinary tract infection) Status: Acute OWEN VARELA DO Jul 13, 2020 10:50
--- NOTE | 2020-07-13 11:03 | NUR ---
DISCHARGE PLANNING: Patient will discharge today to home. Her ride is in the room at present. She is very slow in mentation unsure if this is her normal..suspect that it is. Dr. Fowler did order for [facility] however patient does not want this currently. She will talk to Dr. Villarreal if she gets home and finds that she wants it. SHe has an order for a walker and will stop at [facility] in [place] and pick this up when they get to town.
--- NOTE | 2020-07-13 12:15 | Progress Note ---
ANTHONY DOBBINS,[facility] 07/13/20 1215: Progress Note HOSPITAL COURSE 40yo woman with PMH of chronic GI complaints admitted on 06/30 for intractable nausea & vomiting, was admitted & placed on IV fluids. Underwent EGD with biopsy on 07/02 and an aspiration event occurred during EGD. Pt was transferred to ICU for acute sepsis, tachycardia and hypotension next day and placed on antibiotics. Stat CT c/a/p showed pyloric stenosis but no evidence of perforation. Sepsis was considered 2/2 PNA and Victorina UTI and antibiotics were changed accordingly. She was stabilized in the ICU and underwent a distal gastrectomy with Bilroth I anastomosis on 07/07 after which she returned to the floor. Her postoperative course was marked only by an episode of hypoglycemia (glucose 55) on 07/10 necessitating IV D5/LR. PT/OT were consulted on 07/12 and patient was discharged to home with a walker on 07/13 with her present. Supervisory-Addendum Brief Verification & Attestation Participated in pt care: history Personally performed: exam, history Care discussed with: Medical Student Procedures: n/a ALTAGRACIA VARELA DO 07/14/20 0611: Supervisory-Addendum Brief Verification & Attestation Participated in pt care: history, MDM, physical Personally performed: exam, history, MDM, supervision of care Care discussed with: Medical Student Procedures: n/a Results interpretation: Verified all documentation Verification and Attestation of Medical Student E/M Service A medical student performed and documented this service in my presence. I reviewed and verified all information documented by the medical student and made modifications to such information, when appropriate. I personally performed the physical exam and medical decision making. Altagracia Varela, Jul 14, 2020,06:11 ANTHONY DOBBINS,[facility] Jul 13, 2020 12:15 ALTAGRACIA VARELA DO Jul 14, 2020 06:11
--- NOTE | 2020-07-13 12:19 | Discharge Inst-Surgical ---
Discharge Inst-Surgical Depart Medication/Instructions New, Converted or Re-Newed RX: RX Given to Pt/Family Patient Instructions Follow up Appt: Make appointment for 1 week. [phone] Instructions: No lifting greater than 20 pounds. No strenuous activity. May shower in 24 hours, no tub bath or soaking. Use incentive spirometer at home as directed. No Smoking Skin/Wound Care: May remove bandages in am. You need to leave the Dermabond on incision it will fall off on it's own. Symptoms to Report: Appetite Changes, Extremity Discoloration, Numbness/Tingling, Swelling Increased, Bleeding Excessive, Eyesight Changes, Pain Increased, Urine Color Change, Constipation(Persistent), Fever over 101 degree F, Pain/Pressure in chest, Urinating Difficulty, Cough Up/Vomit Blood, Heart Beat Irreg/Pounding, Pain/Pressure in jaw, Cramps in feet or legs, Lightheadedness, Pain/Pressure in shoulder, Diarrhea(Persistent), Memory Changes Suddenly, Questions/Concerns, Weight gain consecutive days, Dizziness/Fainting, Nausea/Vomiting, Shortness of Breath, Weight gain over 2 pounds If questions or concerns contact your physician Or seek help at emergency department. Activity Activity as Tolerated: Yes Activity Instructions: Avoid Stress to Incision Driving Instructions: No Driving/Refer to Dr. Medina Discharge Diet: No Restrictions Diet After 24 Hours: Clear Liquid if Nauseous If Any Problems/Questions/Issu: Contact Your Physician, Go to Emergency Room Skin/Wound Care Infection Signs and Symptoms: Increased Redness, Foul Odor of Wound, Increased Drainage, Skin Itchy or Has a Rash, Increased Swelling, Temperature Above 101 F Wound Care Comment: ISAAK drain teaching and how to record. If less than 30ml, 2 days in a row can come to my office or Sunday to have removed. Bathing Instructions: Shower Stitches/Joaquin/Dermabond Dis: Care of JOSE Mojica DO Jul 13, 2020 12:19
[2020-07-13 13:55] VITALS: BP 95/59
--- NOTE | 2020-07-13 14:37 | Occ Therapy Progress Note ---
Therapy Progress Note OT orders received. Pt discharged from facility prior to OT evaluation, d/c from OT at this time. JERI LOPEZ OT Jul 13, 2020 14:37
== END 2020-07-13 13:55 | disposition home health service (06) | DRG 326 ==
LOC: EDUNIT# 10:08 → ER FS 10:11 → INTOOBSV 15:35 → 4TH 15:35 → OBSVTOIN 07-03 12:04 → ICU 07-03 12:34 → 4TH 07-05 11:01
PROVIDERS: ADMIT Internal Medicine; ATTEND Internal Medicine
PROC: 0DB78ZX Excision of Stomach, Pylorus, Via Natural or Artificial Opening Endoscopic, Diagnostic (ICD-10-PCS; principal; 2020-07-02 12:00)
PROC: 0DB60ZZ Excision of Stomach, Open Approach (ICD-10-PCS; 2020-07-07)
PROC: 0DB90ZZ Excision of Duodenum, Open Approach (ICD-10-PCS; 2020-07-07)
DX: K31.1 Adult hypertrophic pyloric stenosis (principal); A41.9 Sepsis, unspecified organism; R65.21 Severe sepsis with septic shock; J69.0 Pneumonitis due to inhalation of food and vomit; N39.0 Urinary tract infection, site not specified; E87.2 Acidosis; E87.1 Hypo-osmolality and hyponatremia; K31.5 Obstruction of duodenum; F32.9 Major depressive disorder, single episode, unspecified; R53.81 Other malaise; E87.6 Hypokalemia; Z87.891 Personal history of nicotine dependence; G43.909 Migraine, unspecified, not intractable, without status migrainosus; Z20.822 Contact with and (suspected) exposure to COVID-19; N28.9 Disorder of kidney and ureter, unspecified; Z79.82 Long term (current) use of aspirin; E03.9 Hypothyroidism, unspecified; I95.9 Hypotension, unspecified; D64.9 Anemia, unspecified; E83.42 Hypomagnesemia; R19.7 Diarrhea, unspecified; E86.0 Dehydration; E66.9 Obesity, unspecified; E16.2 Hypoglycemia, unspecified; B96.89 Other specified bacterial agents as the cause of diseases classified elsewhere; Z68.34 Body mass index [BMI] 34.0-34.9, adult
CPT/HCPCS: 36415; 71045; 71260; 74022; 74177; 74246; 76937; 80048; 80053; 80074; 81000; 82805; 83605; 83690; 83735; 83880; 84100; 84145; 84703; 85007; 85025; 85027; 87040; 87081; 87088; 87106; 87324; 87449; 87635; 87804; 88305; 88307; 94664; 94760; G0378

== ENCOUNTER 2020-06-30 11:15 | Outpatient (RCR) | payer MEDICARE, MEDICAID ==
[~2020-06-30 11:15] MED LIST changes: -METO10TA3 PO; +MONT10TA32 PO; -MONT10TA97 PO; +MTC10T PO
[2020-07-01] MEDS ORDERED: ERGO50006 PO (09:50)
[2020-07-01] MEDS ORDERED: POTA10TA6 PO (09:50)
[2020-07-01] MEDS ORDERED: ASPI-789 PO (09:50)
[2020-07-01] MEDS ORDERED: ONDA8TAB13 PO (09:50)
--- NOTE | 2020-07-02 15:02 | Anesthesia-General Post-Op ---
MAC Patient Condition Mental Status/LOC: Same as Preop Cardiovascular: Satisfactory Nausea/Vomiting: Absent Respiratory: Satisfactory (Pt requiring supplemental oxygen to maintain saturation >90. Currently on 5L SFM with SPO2 around 92-93%. Pt completely awake. ) Complications: Absent Post Op Complications Complications PCXR done to rule out possible aspiration. Reported to slade Mukherjee with patient returning to 4th floor with oxygen. Follow Up Care/Instructions Patient Instructions None needed. Anesthesiology Discharge Order Discharge Order Patient is doing well, no complaints, stable vital signs, no apparent adverse anesthesia problems. No complications reported per nursing. ERNESTO LINK CRNA Jul 02, 2020 15:02
[2020-07-13] MEDS ORDERED: ACHD5005 PO (10:49)
[2020-07-13] MEDS ORDERED: PANT40TA2 PO (10:49)
== END 2020-09-28 | disposition home or self-care (01) ==
LOC: PREOP 11:15
PROVIDERS: ATTEND Surgery
DX: Z01.818 Encounter for other preprocedural examination (principal)

== ENCOUNTER 2020-08-03 04:59 | Emergency (ER) | payer MEDICARE, MEDICAID ==
[~2020-08-03 04:59] MED LIST changes: +ACHD5005 PO; +ASPI-789 PO; +ERGO50006 PO; +ONDA8TAB13 PO; +PANT40TA2 PO; +POTA10TA6 PO
[2020-08-03 05:03] VITALS: BP 113/55
--- NOTE | 2020-08-03 05:24 | ED Headache ---
General Chief Complaint: Head/Cervical Problems Stated Complaint: MIGRAINE Nursing Triage Note: Pt complaining of a migraine that started around 0130 Nursing Sepsis Screen: No Definite Risk Source: patient History of Present Illness Date Seen by Provider: Aug 03, 2020 Time Seen by Provider: 05:00 Initial Comments Patient is a 40-year-old female presents with typical migraine headache onset 4 hours ago while asleep. Headache is described as throbbing frontal and worse with movement activity. Associated with nausea without vomiting. Reports light sensitivity. Patient took Excedrin Migraine and promethazine without improvement. This is not the worst headache of the patient's life. Denies neck pain, extremity weakness, rash or fever. No other acute symptoms or complaints. Timing/Duration: 4-6 hours Severity/Quality: moderate Location: frontal Prior Headaches/Recent Trauma: occasional headaches, other Modifying Factors: improves with other Associated Symptoms: other Allergies and Home Medications Allergies Coded Allergies: zolmitriptan (Verified Adverse Reaction, Unknown, 09/29/19) Home Medications Aspirin/Acetaminophen/Caffeine 1 Each Tablet, 2 EACH PO Q6-8HR PRN for Headache, (Reported) Cetirizine HCl 10 Mg Tablet, 10 MG PO HS, (Reported) Citalopram Hydrobromide 40 Mg Tablet, 40 MG PO HS, (Reported) Ergocalciferol (Vitamin D2) 1,250 Mcg Capsule, 1,250 MCG PO WEEK, (Reported) Ferrous Sulfate 325 Mg Tablet, 325 MG PO DAILY, (Reported) Hydrocodone Bit/Acetaminophen 1 Tab Tab, 1 TAB PO Q4H PRN for PAIN-MODERATE (5- 7) Prescribed by: OWEN VARELA on 07/13/20 1050 Levothyroxine Sodium 88 Mcg Tablet, 88 MCG PO DAILY, (Reported) Montelukast Sodium 10 Mg Tablet, 10 MG PO HS, (Reported) Ondansetron 8 Mg Tab.rapdis, 8 MG PO Q8H PRN for NAUSEA/VOMITING-1ST LINE, (Reported) Pantoprazole Sodium 40 Mg Tablet.dr, 40 MG PO BID Prescribed by: OWEN VARELA on 07/13/20 1049 Potassium Chloride 10 Meq Tablet.er, 10 MEQ PO DAILY, (Reported) Propranolol HCl 20 Mg Tablet, 20 MG PO BID, (Reported) Sucralfate 1 Gm Tablet, 1 GM PO DAILY, (Reported) Topiramate 100 Mg Tablet, 100 MG PO TID, (Reported) Patient Home Medication List Home Medication List Reviewed: Yes Review of Systems Review of Systems Constitutional: see HPI Eyes: See HPI Ears, Nose, Mouth, Throat: see HPI Respiratory: see HPI Cardiovascular: see HPI Gastrointestinal: see HPI Genitourinary: see HPI Musculoskeletal: see HPI Skin: see HPI Psychiatric/Neurological: See HPI All Other Systems Reviewed Negative Unless Noted: Yes Past Iaselod-Wpcrtw-Tmxcmp Hx Past Med/Social Hx: Reviewed Nursing Past Med/Soc Hx Patient Social History Alcohol Use: Denies Use Type Used: Cigarettes Former Smoker, Quit: October 17, 2017 2nd Hand Smoke Exposure: No Recent Infectious Disease Expo: No Recent Hopitalizations: No Immunizations Up To Date Date of Influenza Vaccine: Mar 13, 2020 Seasonal Allergies Seasonal Allergies: Yes Past Medical History Surgeries: Yes Gallbladder Respiratory: No Currently Using CPAP: No Currently Using BIPAP: No Cardiac: No Neurological: Yes Headaches /Migraines Genitourinary: No Gastrointestinal: Yes (chronic gastritis, pyloric stenosis) Musculoskeletal: No Endocrine: Yes Hypothyroidsim HEENT: No Cancer: No Psychosocial: Yes Depression Integumentary: No Blood Disorders: No Family Medical History Cancer, Diabetes Physical Exam Vital Signs Vital Signs - First Documented 08/03/20 05:03 Pulse 72 Resp 16 B/P (MAP) 113/55 (74) Pulse Ox 100 O2 Delivery Room Air Capillary Refill : Less Than 3 Seconds Height, Weight, BMI Height: 5'3.00" Weight: 160lbs. 0oz. [id number]; 11.79 BMI Method:Stated General Appearance: WD/WN HEENT: PERRL/EOMI, pharynx normal Neck: non-tender, full range of motion, supple Cardiovascular: normal peripheral pulses, regular rate, rhythm Respiratory: lungs clear Gastrointestinal: soft Psychiatric: alert, oriented x 3 Crainal Nerves: normal hearing, normal speech, PERRL Coordination/Gait: normal gait Motor/Sensory: no motor deficit, no sensory deficit Skin: normal color, warm/dry Progress/Results/Core Measures Results/Orders My Orders Orders - DARCI ECHOLS DO Prochlorperazine Injection (Compazine In (08/03/20 05:30) Ketorolac Injection (Toradol Injection) (08/03/20 05:30) Diphenhydramine Injection (Benadryl Inje (08/03/20 05:30) Vital Signs/I&O 08/03/20 05:03 Pulse 72 Resp 16 B/P (MAP) 113/55 (74) Pulse Ox 100 O2 Delivery Room Air Blood Pressure Mean: 74 Departure Communication (Admissions) Typical migraine cocktail given with relief of symptoms. Patient does have a ride available and is instructed to go home and sleep. She is to continue her migraine prophylaxis and follow-up with her PCP later this week as scheduled. Return precautions reviewed. Impression Primary Impression: Migraine Disposition: 01 HOME, SELF-CARE Condition: Stable Departure-Patient Inst. Decision time for Depature: 05:23 Referrals: SELF,ANDREW BOLIVAR (PCP/Family) Primary Care Physician Patient Instructions: Migraines in Adults Add. Discharge Instructions: Please go home and rest. Increase daily fluids and follow-up with your PCP later this week as scheduled. Continue home migraine medication prophylaxis. Return to the ED if new or worsening symptoms. All discharge instructions reviewed with patient and/or family. Voiced understanding. DARCI ECHOLS DO Aug 03, 2020 05:24
[2020-08-03] MEDS ORDERED: diphenhydrAMINE 50 MG/ML INJ (BENADRYL) IM ONE (05:30)
[2020-08-03] MEDS ORDERED: KETOROLAC 60 MG/2 ML VIAL IM ONE (05:30)
[2020-08-03] MEDS ORDERED: PROCHLORPERAZINE 10 MG/2ML INJ (COMPAZINE) IM ONE (05:30)
== END 2020-08-03 05:28 | disposition home or self-care (01) ==
LOC: EDUNIT# 04:59 → ER FS 05:01
DX: G43.909 Migraine, unspecified, not intractable, without status migrainosus (principal); F32.9 Major depressive disorder, single episode, unspecified; E03.9 Hypothyroidism, unspecified; Z88.8 Allergy status to other drugs, medicaments and biological substances; Z87.891 Personal history of nicotine dependence; Z80.9 Family history of malignant neoplasm, unspecified; Z83.3 Family history of diabetes mellitus; Z79.890 Hormone replacement therapy; Z79.82 Long term (current) use of aspirin
CPT/HCPCS: 99284

== ENCOUNTER 2020-09-04 08:22 | Emergency (ER) | payer MEDICARE, MEDICAID ==
[~2020-09-04] VITALS: Ht 160 cm; Wt 74.4 kg
--- NOTE | 2020-09-04 09:09 | ED Headache ---
General Chief Complaint: Head/Cervical Problems Stated Complaint: HEADACHE Nursing Triage Note: Patient reports a history of migraine headaches, states she woke with a headache at 2 am this morning. She states she took excedrin for migraines and her "dizzy pills", but still has a headache. She reports she has an appointment with Dr. Villarreal on September 07 to discuss management of her migraines. Nursing Sepsis Screen: No Definite Risk History of Present Illness Date Seen by Provider: Sep 04, 2020 Time Seen by Provider: 08:45 Initial Comments 40-year-old female with history of chronic headaches presents with a headache since 2 AM this morning. Similar to her regular headaches without any change of severity or pattern. Patient took [id number] Excedrin without any relief. No associated photophobia or phonophobia. No vomiting and no weakness. Allergies and Home Medications Allergies Coded Allergies: zolmitriptan (Verified Adverse Reaction, Unknown, 09/29/19) Home Medications Aspirin/Acetaminophen/Caffeine 1 Each Tablet, 2 EACH PO Q6-8HR PRN for Headache, (Reported) Cetirizine HCl 10 Mg Tablet, 10 MG PO HS, (Reported) Citalopram Hydrobromide 40 Mg Tablet, 40 MG PO HS, (Reported) Ergocalciferol (Vitamin D2) 1,250 Mcg Capsule, 1,250 MCG PO WEEK, (Reported) Ferrous Sulfate 325 Mg Tablet, 325 MG PO DAILY, (Reported) Hydrocodone Bit/Acetaminophen 1 Tab Tab, 1 TAB PO Q4H PRN for PAIN-MODERATE (5- 7) Prescribed by: OWEN VARELA on 07/13/20 1050 Levothyroxine Sodium 88 Mcg Tablet, 88 MCG PO DAILY, (Reported) Montelukast Sodium 10 Mg Tablet, 10 MG PO HS, (Reported) Ondansetron 8 Mg Tab.rapdis, 8 MG PO Q8H PRN for NAUSEA/VOMITING-1ST LINE, (Reported) Pantoprazole Sodium 40 Mg Tablet.dr, 40 MG PO BID Prescribed by: OWEN VARELA on 07/13/20 1049 Potassium Chloride 10 Meq Tablet.er, 10 MEQ PO DAILY, (Reported) Propranolol HCl 20 Mg Tablet, 20 MG PO BID, (Reported) Sucralfate 1 Gm Tablet, 1 GM PO DAILY, (Reported) Topiramate 100 Mg Tablet, 100 MG PO TID, (Reported) Patient Home Medication List Home Medication List Reviewed: Yes Review of Systems Review of Systems Constitutional: No fever, No malaise, No weakness Eyes: No Symptoms Reported; Denies Blurred Vision, Denies Pain, Denies Photophobia Ears, Nose, Mouth, Throat: no symptoms reported Psychiatric/Neurological: See HPI, Headache; Denies Numbness, Denies Paresthesia, Denies Seizure Past Gnucesx-Gdobhz-Nwtdeh Hx Past Med/Social Hx: Reviewed Nursing Past Med/Soc Hx Patient Social History Alcohol Use: Denies Use Smoking Status: Never a Smoker Type Used: Cigarettes Former Smoker, Quit: October 17, 2017 2nd Hand Smoke Exposure: No Recent Infectious Disease Expo: No Recent Hopitalizations: No Immunizations Up To Date Date of Influenza Vaccine: Mar 13, 2020 Seasonal Allergies Seasonal Allergies: Yes Past Medical History Surgeries: Yes Gallbladder Respiratory: No Currently Using CPAP: No Currently Using BIPAP: No Cardiac: No Neurological: Yes Headaches /Migraines Genitourinary: No Gastrointestinal: Yes (chronic gastritis, pyloric stenosis) Musculoskeletal: No Endocrine: Yes Hypothyroidsim HEENT: No Cancer: No Psychosocial: Yes Depression Integumentary: No Blood Disorders: No Family Medical History Cancer, Diabetes Physical Exam Vital Signs Vital Signs - First Documented 09/04/20 08:27 Temp 36.6 Pulse 60 Resp 16 B/P (MAP) 120/75 (90) Pulse Ox 99 O2 Delivery Room Air Capillary Refill : Less Than 3 Seconds Height, Weight, BMI Height: 5'3.00" Weight: 160lbs. 0oz. 72.337194ox; 29.00 BMI Method:Stated General Appearance: WD/WN, no apparent distress HEENT: PERRL/EOMI, normal ENT inspection, TMs normal, pharynx normal Neck: non-tender, supple Crainal Nerves: normal hearing, normal speech, PERRL Coordination/Gait: normal finger to nose, normal gait Motor/Sensory: no motor deficit, no sensory deficit Skin: normal color, warm/dry Progress/Results/Core Measures Results/Orders My Orders Orders - BILL RAMIREZ DO Ketorolac Injection (Toradol Injection) (09/04/20 09:30) Promethazine Injection (Phenergan Injec (09/04/20 09:30) Medications Given in ED Current Medications Medications Dose Ordered Sig/Hernan Route Start Time Stop Time Status Last Admin Dose Admin Ketorolac Tromethamine 60 mg ONCE ONCE IM 09/04/20 09:30 09/04/20 09:31 DC 09/04/20 09:49 60 MG Promethazine HCl 25 mg ONCE ONCE IM/IV 09/04/20 09:30 09/04/20 09:31 DC 09/04/20 09:49 25 MG Vital Signs/I&O 09/04/20 09/04/20 08:27 09:50 Temp 36.6 Pulse 60 62 Resp 16 18 B/P (MAP) 120/75 (90) 130/79 Pulse Ox 99 97 O2 Delivery Room Air Room Air Blood Pressure Mean: 90 Departure Impression Primary Impression: Headache Qualified Codes: R51.9 - Headache, unspecified Disposition: 01 HOME, SELF-CARE Condition: Stable Departure-Patient Inst. Decision time for Depature: 09:47 Referrals: ANDREW VILLARREAL MD (PCP/Family) Primary Care Physician Patient Instructions: Headache, Adult (DC) Add. Discharge Instructions: Follow up with Dr Villarreal in 1 week to discuss your headaches. All discharge instructions reviewed with patient and/or family. Voiced understanding. BILL RAMIREZ DO Sep 04, 2020 09:09
[2020-09-04] MEDS ORDERED: KETOROLAC 60 MG/2 ML VIAL IM ONE (09:30)
[2020-09-04] MEDS ORDERED: PROMETHAZINE INJ 25 MG/ML (PHENERGAN) AMP IM/IV ONE (09:30)
[2020-09-04 09:50] VITALS: BP 130/79
== END 2020-09-04 09:50 | disposition home or self-care (01) ==
LOC: EDUNIT# 08:22 → ER FS 08:24
DX: G43.909 Migraine, unspecified, not intractable, without status migrainosus (principal); F32.9 Major depressive disorder, single episode, unspecified; E03.9 Hypothyroidism, unspecified; Z87.891 Personal history of nicotine dependence; Z79.82 Long term (current) use of aspirin; Z79.890 Hormone replacement therapy; Z88.8 Allergy status to other drugs, medicaments and biological substances; Z79.899 Other long term (current) drug therapy
CPT/HCPCS: 99284

== ENCOUNTER 2020-09-12 07:53 | Emergency (ER) | payer MEDICARE, MEDICAID ==
[~2020-09-12] VITALS: Ht 160 cm; Wt 74.4 kg
[2020-09-12 07:59] VITALS: BP 119/70
[2020-09-12] MEDS ORDERED: KETOROLAC 60 MG/2 ML VIAL IM STA (08:03)
[2020-09-12] MEDS ORDERED: PROCHLORPERAZINE 10 MG/2ML INJ (COMPAZINE) IM STA (08:03)
[2020-09-12] MEDS ORDERED: diphenhydrAMINE 50 MG/ML INJ (BENADRYL) IM STA (08:03)
--- NOTE | 2020-09-12 08:07 | ED Headache ---
General Chief Complaint: Head/Cervical Problems Stated Complaint: HEADACHE Source: patient, old records History of Present Illness Date Seen by Provider: Sep 12, 2020 Time Seen by Provider: 07:54 Initial Comments 40-year-old female presenting with recurrent migraine headache. She states that it woke her up earlier this morning with typical migraine headache symptoms. She has frontal headache and nausea with some dry heaves. She has tried taking Excedrin at home without improvement. She recently had a new migraine headache medicine from Dr. Villarreal but did not feel it was helping so she plans to follow-up with him this week to be referred to a neurologist for her migraine headaches. She reports having headaches since she was 13 years old. She states this feels the same as her typical migraine headache. She denies any vision change, numbness or tingling, fever or chills, head trauma. She is requesting her typical migraine cocktail of 3 medicines, Toradol, Compazine, Benadryl. She would like to get these and have her bus driver take her home so she can get some sleep. Timing/Duration: 4-6 hours Severity/Quality: severe, constant, pressure Location: frontal Prior Headaches/Recent Trauma: frequent headaches, chronic headaches Modifying Factors: worse with exposure to light; improves with rest Associated Symptoms: No confusion, No fatigue, No facial pain, No fever/chills, No flushing, No loss of consciousness; nausea/vomiting (Nausea with dry heaves); No nasal congestion, No nasal drainage, No numbness in legs/feet, No rash, No seizures, No sinus infection, No stiff neck, No vision changes, No weakness Allergies and Home Medications Allergies Coded Allergies: zolmitriptan (Verified Adverse Reaction, Unknown, 09/29/19) Home Medications Aspirin/Acetaminophen/Caffeine 1 Each Tablet, 2 EACH PO Q6-8HR PRN for Headache, (Reported) Cetirizine HCl 10 Mg Tablet, 10 MG PO HS, (Reported) Citalopram Hydrobromide 40 Mg Tablet, 40 MG PO HS, (Reported) Ergocalciferol (Vitamin D2) 1,250 Mcg Capsule, 1,250 MCG PO WEEK, (Reported) Ferrous Sulfate 325 Mg Tablet, 325 MG PO DAILY, (Reported) Hydrocodone Bit/Acetaminophen 1 Tab Tab, 1 TAB PO Q4H PRN for PAIN-MODERATE (5- 7) Prescribed by: OWEN VARELA on 07/13/20 1050 Levothyroxine Sodium 88 Mcg Tablet, 88 MCG PO DAILY, (Reported) Montelukast Sodium 10 Mg Tablet, 10 MG PO HS, (Reported) Ondansetron 8 Mg Tab.rapdis, 8 MG PO Q8H PRN for NAUSEA/VOMITING-1ST LINE, (Rep orted) Pantoprazole Sodium 40 Mg Tablet.dr, 40 MG PO BID Prescribed by: OWEN VARELA on 07/13/20 1049 Potassium Chloride 10 Meq Tablet.er, 10 MEQ PO DAILY, (Reported) Propranolol HCl 20 Mg Tablet, 20 MG PO BID, (Reported) Sucralfate 1 Gm Tablet, 1 GM PO DAILY, (Reported) Topiramate 100 Mg Tablet, 100 MG PO TID, (Reported) Patient Home Medication List Home Medication List Reviewed: Yes Review of Systems Review of Systems Constitutional: No chills, No fever Eyes: Photophobia Ears, Nose, Mouth, Throat: no symptoms reported Respiratory: no symptoms reported Cardiovascular: no symptoms reported Gastrointestinal: see HPI Genitourinary: no symptoms reported Musculoskeletal: no symptoms reported Skin: no symptoms reported Psychiatric/Neurological: See HPI Past Xahnnrj-Tvugsq-Ktfkuw Hx Past Med/Social Hx: Reviewed Nursing Past Med/Soc Hx Patient Social History Alcohol Use: Denies Use Smoking Status: Former Smoker Type Used: Cigarettes Former Smoker, Quit: October 17, 2017 2nd Hand Smoke Exposure: No Recent Hopitalizations: No Immunizations Up To Date Date of Influenza Vaccine: Mar 13, 2020 Seasonal Allergies Seasonal Allergies: Yes Past Medical History Surgeries: Yes Gallbladder Respiratory: No Currently Using CPAP: No Currently Using BIPAP: No Cardiac: No Neurological: Yes Headaches /Migraines Genitourinary: No Gastrointestinal: Yes (chronic gastritis, pyloric stenosis) Musculoskeletal: No Endocrine: Yes Hypothyroidsim HEENT: No Cancer: No Psychosocial: Yes Depression Integumentary: No Blood Disorders: No Family Medical History Cancer, Diabetes Physical Exam Vital Signs Capillary Refill : Height, Weight, BMI Height: 5'3.00" Weight: 160lbs. 0oz. [id number]; 29.00 BMI Method:Stated General Appearance: WD/WN, no apparent distress HEENT: PERRL/EOMI, pharynx normal Neck: non-tender, full range of motion, supple, normal inspection Cardiovascular: normal peripheral pulses, regular rate, rhythm Respiratory: chest non-tender, lungs clear, normal breath sounds, no res piratory distress, no accessory muscle use Extremities: normal range of motion, normal capillary refill Psychiatric: alert, oriented x 3 Crainal Nerves: normal hearing, normal speech, PERRL Coordination/Gait: normal gait Motor/Sensory: no motor deficit, no sensory deficit Skin: normal color, warm/dry Progress/Results/Core Measures Results/Orders My Orders Orders - MIGUELITO GUZMNÁ MD Ketorolac Injection (Toradol Injection) (09/12/20 08:03) Prochlorperazine Injection (Compazine In (09/12/20 08:03) Diphenhydramine Injection (Benadryl Inje (09/12/20 08:03) Progress Progress Note : Progress Note As the patient reports this is her typical migraine symptoms and she has no acute changes from her baseline on her migraine headache complaint will treat with a typical migraine cocktail of medications as she had reported helped in the past. This would be Toradol 60 mg IM, Benadryl 25 mg IM, Compazine 10 mg IM. She has a bus driver to take her home and plans to go home and trying to sleep to help break the cycle of the migraine headache. She also plans to follow-up with Dr. Villarreal about referral to headache and migraine specialist since the recent medication for migraines he had prescribed was not helping her and she continues to have recurrent Migraine Headaches. Departure Impression Primary Impression: Migraine headache without aura Qualified Codes: G43.009 - Migraine without aura, not intractable, without status migrainosus Disposition: 01 HOME, SELF-CARE Condition: Stable Departure-Patient Inst. Decision time for Depature: 08:06 Referrals: ANDREW VILLARREAL MD (PCP/Family) Primary Care Physician Patient Instructions: Migraines in Adults, Home Headache Remedies Add. Discharge Instructions: Rest in a cool dark room Follow up with Dr. Villarreal about your Migraine Headaches All discharge instructions reviewed with patient and/or family. Voiced understanding. MIGUELITO GUZMÁN MD Sep 12, 2020 08:07
== END 2020-09-12 08:13 | disposition home or self-care (01) ==
LOC: EDUNIT# 07:53 → ER FS 07:55
DX: G43.009 Migraine without aura, not intractable, without status migrainosus (principal); F32.9 Major depressive disorder, single episode, unspecified; E03.9 Hypothyroidism, unspecified; Z88.8 Allergy status to other drugs, medicaments and biological substances; Z87.891 Personal history of nicotine dependence; Z83.3 Family history of diabetes mellitus; Z80.9 Family history of malignant neoplasm, unspecified; Z79.890 Hormone replacement therapy; Z79.82 Long term (current) use of aspirin
CPT/HCPCS: 96372; 99284

== ENCOUNTER 2020-09-14 04:02 | Emergency (ER) | payer MEDICARE, MEDICAID ==
[~2020-09-14] VITALS: Ht 160 cm; Wt 78.9 kg
[2020-09-14 04:08] VITALS: BP 105/89
--- NOTE | 2020-09-14 04:13 | ED Headache ---
General Chief Complaint: Head/Cervical Problems Stated Complaint: MIGRAINE History of Present Illness Date Seen by Provider: Sep 14, 2020 Time Seen by Provider: 04:12 Initial Comments 40-year-old female presents with a migraine. She reports she has a history of migraine. At this point started around midnight woke her up. She has a mild nausea. Some mild photophobia, and dizziness. She reports this is very typical of her migraines. She normally "gets 3 shots and it goes away" she denies any fevers chills, chest pain, shortness of breath or other systemic complaints. Allergies and Home Medications Allergies Coded Allergies: zolmitriptan (Verified Adverse Reaction, Unknown, 09/29/19) Home Medications Aspirin/Acetaminophen/Caffeine 1 Each Tablet, 2 EACH PO Q6-8HR PRN for Headache, (Reported) Cetirizine HCl 10 Mg Tablet, 10 MG PO HS, (Reported) Citalopram Hydrobromide 40 Mg Tablet, 40 MG PO HS, (Reported) Ergocalciferol (Vitamin D2) 1,250 Mcg Capsule, 1,250 MCG PO WEEK, (Reported) Ferrous Sulfate 325 Mg Tablet, 325 MG PO DAILY, (Reported) Hydrocodone Bit/Acetaminophen 1 Tab Tab, 1 TAB PO Q4H PRN for PAIN-MODERATE (5- 7) Prescribed by: OWEN VARELA on 07/13/20 1050 Levothyroxine Sodium 88 Mcg Tablet, 88 MCG PO DAILY, (Reported) Montelukast Sodium 10 Mg Tablet, 10 MG PO HS, (Reported) Ondansetron 8 Mg Tab.rapdis, 8 MG PO Q8H PRN for NAUSEA/VOMITING-1ST LINE, (Reported) Pantoprazole Sodium 40 Mg Tablet.dr, 40 MG PO BID Prescribed by: OWEN VARELA on 07/13/20 1049 Potassium Chloride 10 Meq Tablet.er, 10 MEQ PO DAILY, (Reported) Propranolol HCl 20 Mg Tablet, 20 MG PO BID, (Reported) Sucralfate 1 Gm Tablet, 1 GM PO DAILY, (Reported) Topiramate 100 Mg Tablet, 100 MG PO TID, (Reported) Patient Home Medication List Home Medication List Reviewed: Yes Review of Systems Review of Systems Constitutional: No chills, No fever Eyes: No Symptoms Reported Respiratory: no symptoms reported Cardiovascular: no symptoms reported Gastrointestinal: no symptoms reported Genitourinary: no symptoms reported Musculoskeletal: no symptoms reported Skin: no symptoms reported Psychiatric/Neurological: Headache Past Wkwrhkx-Vaxrzp-Zksfcr Hx Past Med/Social Hx: Reviewed Nursing Past Med/Soc Hx Patient Social History Type Used: Cigarettes Former Smoker, Quit: October 17, 2017 2nd Hand Smoke Exposure: No Recent Hopitalizations: No Immunizations Up To Date Date of Influenza Vaccine: Mar 13, 2020 Seasonal Allergies Seasonal Allergies: Yes Past Medical History Surgeries: Yes Gallbladder Respiratory: No Currently Using CPAP: No Currently Using BIPAP: No Cardiac: No Neurological: Yes Headaches /Migraines Genitourinary: No Gastrointestinal: Yes (chronic gastritis, pyloric stenosis) Musculoskeletal: No Endocrine: Yes Hypothyroidsim HEENT: No Cancer: No Psychosocial: Yes Depression Integumentary: No Blood Disorders: No Family Medical History Cancer, Diabetes Physical Exam Vital Signs Vital Signs - First Documented 09/14/20 04:08 Temp 37.7 Pulse 98 Resp 18 B/P (MAP) 105/89 (94) Pulse Ox 96 O2 Delivery Room Air Capillary Refill : Height, Weight, BMI Height: 5'3.00" Weight: 160lbs. 0oz. 72.005214ku; 29.00 BMI Method:Stated General Appearance: WD/WN Neck: full range of motion Cardiovascular: normal peripheral pulses, regular rate, rhythm Respiratory: lungs clear, normal breath sounds Gastrointestinal: non tender, soft Psychiatric: alert, oriented x 3 Crainal Nerves: normal hearing, normal speech, PERRL Coordination/Gait: normal gait Motor/Sensory: no motor deficit, no sensory deficit Skin: normal color, warm/dry Progress/Results/Core Measures Results/Orders Vital Signs/I&O 09/14/20 04:08 Temp 37.7 Pulse 98 Resp 18 B/P (MAP) 105/89 (94) Pulse Ox 96 O2 Delivery Room Air Departure Impression Primary Impression: Chronic migraine Disposition: 01 HOME, SELF-CARE Condition: Stable Departure-Patient Inst. Referrals: SELF,ANDREW BOLIVAR (PCP/Family) Primary Care Physician Patient Instructions: Migraines (DC) Add. Discharge Instructions: Drink plenty of fluids Follow-up with your primary care provider for continuation of care All discharge instructions reviewed with patient and/or family. Voiced understanding. PAZ ANGELO DO Sep 14, 2020 04:13
[2020-09-14] MEDS ORDERED: KETOROLAC 60 MG/2 ML VIAL IM STA (04:15)
[2020-09-14] MEDS ORDERED: diphenhydrAMINE 50 MG/ML INJ (BENADRYL) IM STA (04:15)
[2020-09-14] MEDS ORDERED: METOCLOPRAMIDE INJ 10 MG/2 ML (REGLAN) IM STA (04:15)
== END 2020-09-14 04:28 | disposition home or self-care (01) ==
LOC: EDUNIT# 04:02 → ER FS 04:04
DX: G43.909 Migraine, unspecified, not intractable, without status migrainosus (principal); E03.9 Hypothyroidism, unspecified; F32.9 Major depressive disorder, single episode, unspecified; Z88.8 Allergy status to other drugs, medicaments and biological substances; Z87.891 Personal history of nicotine dependence; Z80.9 Family history of malignant neoplasm, unspecified; Z83.3 Family history of diabetes mellitus; Z79.890 Hormone replacement therapy; Z79.82 Long term (current) use of aspirin
CPT/HCPCS: 96372; 99284

== ENCOUNTER 2020-09-17 16:53 | Emergency (ER) | payer MEDICARE, MEDICAID ==
[2020-09-17 16:58] VITALS: BP 107/73
--- NOTE | 2020-09-17 17:02 | ED Headache ---
General Chief Complaint: Head/Cervical Problems Stated Complaint: MIGRIANE Source: patient Exam Limitations: no limitations History of Present Illness Date Seen by Provider: Sep 17, 2020 Time Seen by Provider: 16:59 Initial Comments 40-year-old female presents with headache. Patient has a history of migraines and was seen by me a couple nights ago for migraine. However she thinks tonight might be more from her neck. She believes she has some tightness in her neck when she moves the headache gets worse. She reports a little bit of dizziness and nausea. No fevers chills or recent illness. Patient states she has seen her primary care provider and they are arranging for a headache specialist to see her. Allergies and Home Medications Allergies Coded Allergies: zolmitriptan (Verified Adverse Reaction, Unknown, 09/29/19) Home Medications Aspirin/Acetaminophen/Caffeine 1 Each Tablet, 2 EACH PO Q6-8HR PRN for Headache, (Reported) Cetirizine HCl 10 Mg Tablet, 10 MG PO HS, (Reported) Citalopram Hydrobromide 40 Mg Tablet, 40 MG PO HS, (Reported) Ergocalciferol (Vitamin D2) 1,250 Mcg Capsule, 1,250 MCG PO WEEK, (Reported) Ferrous Sulfate 325 Mg Tablet, 325 MG PO DAILY, (Reported) Hydrocodone Bit/Acetaminophen 1 Tab Tab, 1 TAB PO Q4H PRN for PAIN-MODERATE (5- 7) Prescribed by: OWEN VARELA on 07/13/20 1050 Levothyroxine Sodium 88 Mcg Tablet, 88 MCG PO DAILY, (Reported) Montelukast Sodium 10 Mg Tablet, 10 MG PO HS, (Reported) Ondansetron 8 Mg Tab.rapdis, 8 MG PO Q8H PRN for NAUSEA/VOMITING-1ST LINE, ( Reported) Pantoprazole Sodium 40 Mg Tablet.dr, 40 MG PO BID Prescribed by: OWEN VARELA on 07/13/20 1049 Potassium Chloride 10 Meq Tablet.er, 10 MEQ PO DAILY, (Reported) Propranolol HCl 20 Mg Tablet, 20 MG PO BID, (Reported) Sucralfate 1 Gm Tablet, 1 GM PO DAILY, (Reported) Topiramate 100 Mg Tablet, 100 MG PO TID, (Reported) Patient Home Medication List Home Medication List Reviewed: Yes Review of Systems Review of Systems Constitutional: No chills, No fever, No malaise Eyes: Photophobia (Minimal) Respiratory: No cough, No short of breath Cardiovascular: no symptoms reported Gastrointestinal: No abdominal pain; nausea; No vomiting Genitourinary: no symptoms reported Musculoskeletal: see HPI Skin: no symptoms reported Psychiatric/Neurological: No Symptoms Reported Past Mgqhhel-Tssyje-Sbyyvn Hx Past Med/Social Hx: Reviewed Nursing Past Med/Soc Hx Patient Social History Alcohol Use: Denies Use Smoking Status: Former Smoker Type Used: Cigarettes Former Smoker, Quit: October 17, 2017 2nd Hand Smoke Exposure: No Recent Hopitalizations: No Immunizations Up To Date Date of Influenza Vaccine: Mar 13, 2020 Seasonal Allergies Seasonal Allergies: Yes Past Medical History Surgeries: Yes Gallbladder Respiratory: No Currently Using CPAP: No Currently Using BIPAP: No Cardiac: No Neurological: Yes Headaches /Migraines Genitourinary: No Gastrointestinal: Yes (chronic gastritis, pyloric stenosis) Musculoskeletal: No Endocrine: Yes Hypothyroidsim HEENT: No Cancer: No Psychosocial: Yes Depression Integumentary: No Blood Disorders: No Family Medical History Cancer, Diabetes Physical Exam Vital Signs Vital Signs - First Documented 09/17/20 16:58 Temp 36.5 Pulse 106 Resp 16 B/P (MAP) 107/73 (84) Pulse Ox 100 Capillary Refill : Height, Weight, BMI Height: 5'3.00" Weight: 160lbs. 0oz. [id number]; 30.00 BMI Method:Stated General Appearance: no apparent distress HEENT: PERRL/EOMI, normal ENT inspection Neck: full range of motion, tender lateral; No tender midline Cardiovascular: normal peripheral pulses, regular rate, rhythm Respiratory: lungs clear, normal breath sounds Gastrointestinal: non tender, soft Extremities: normal range of motion, non-tender Psychiatric: alert, oriented x 3 Crainal Nerves: normal hearing, normal speech Coordination/Gait: normal gait Motor/Sensory: no motor deficit, no sensory deficit Skin: normal color, warm/dry Progress/Results/Core Measures Results/Orders My Orders Orders - PAZ ANGELO DO Ketorolac Injection (Toradol Injection) (09/17/20 17:03) Orphenadrine Inj (Ed Only) (Norflex Inje (09/17/20 17:03) Vital Signs/I&O 09/17/20 16:58 Temp 36.5 Pulse 106 Resp 16 B/P (MAP) 107/73 (84) Pulse Ox 100 Departure Impression Primary Impression: Tension type headache Qualified Codes: G44.219 - Episodic tension-type headache, not intractable Disposition: 01 HOME, SELF-CARE Condition: Stable Departure-Patient Inst. Referrals: SELF,ANDREW BOLIVAR (PCP/Family) Primary Care Physician Patient Instructions: Generalized Neck Pain (DC), Tension Headache (DC) Add. Discharge Instructions: 600 mg ibuprofen every 8 hrs as needed 4% topical lidocaine with menthol- cream, gel or patch to posterior neck as directed on package. All discharge instructions reviewed with patient and/or family. Voiced understanding. PAZ ANGELO DO Sep 17, 2020 17:02
[2020-09-17] MEDS ORDERED: ORPHENADRINE 60 MG/2 ML (NORFLEX) AMP (ED ONLY) IM STA (17:03)
[2020-09-17] MEDS ORDERED: KETOROLAC 30 MG/ML VIAL IM STA (17:03)
== END 2020-09-17 17:27 | disposition home or self-care (01) ==
LOC: EDUNIT# 16:53 → ER FS 16:54
DX: G44.209 Tension-type headache, unspecified, not intractable (principal); E03.9 Hypothyroidism, unspecified; F32.9 Major depressive disorder, single episode, unspecified; Z79.890 Hormone replacement therapy; Z88.8 Allergy status to other drugs, medicaments and biological substances; Z87.891 Personal history of nicotine dependence; Z79.82 Long term (current) use of aspirin
CPT/HCPCS: 99284

== ENCOUNTER 2020-10-09 06:15 | Emergency (ER) | payer MEDICARE, MEDICAID ==
[2020-10-09] MEDS ORDERED: diphenhydrAMINE 50 MG/ML INJ (BENADRYL) IM STA (06:25)
[2020-10-09] MEDS ORDERED: METOCLOPRAMIDE INJ 10 MG/2 ML (REGLAN) IM STA (06:25)
[2020-10-09] MEDS ORDERED: KETOROLAC 60 MG/2 ML VIAL IM STA (06:25)
--- NOTE | 2020-10-09 06:33 | ED Headache ---
General Chief Complaint: Head/Cervical Problems Stated Complaint: HEADACHE Nursing Triage Note: Pt complaining of a migraine that started around 0200 Nursing Sepsis Screen: No Definite Risk Source: patient History of Present Illness Date Seen by Provider: October 09, 2020 Time Seen by Provider: 06:16 Initial Comments 40 yo female presenting with recurrent headache. she states it feels like her usual migraine headache and is located in frontal forehead region. It woke her up from sleep around 3 am. She tried her home meds without improvement. No vomiting but nauseated. No recent head trauma, fever, chills. She is trying to get to a specialist in [place] but has been waiting on referral from Dr. Villarreal. Allergies and Home Medications Allergies Coded Allergies: zolmitriptan (Verified Adverse Reaction, Unknown, 09/29/19) Home Medications Aspirin/Acetaminophen/Caffeine 1 Each Tablet, 2 EACH PO Q6-8HR PRN for Headache, (Reported) Cetirizine HCl 10 Mg Tablet, 10 MG PO HS, (Reported) Citalopram Hydrobromide 40 Mg Tablet, 40 MG PO HS, (Reported) Ergocalciferol (Vitamin D2) 1,250 Mcg Capsule, 1,250 MCG PO WEEK, (Reported) Ferrous Sulfate 325 Mg Tablet, 325 MG PO DAILY, (Reported) Hydrocodone Bit/Acetaminophen 1 Tab Tab, 1 TAB PO Q4H PRN for PAIN-MODERATE (5- 7) Prescribed by: OWEN VARELA on 07/13/20 1050 Levothyroxine Sodium 88 Mcg Tablet, 88 MCG PO DAILY, (Reported) Montelukast Sodium 10 Mg Tablet, 10 MG PO HS, (Reported) Ondansetron 8 Mg Tab.rapdis, 8 MG PO Q8H PRN for NAUSEA/VOMITING-1ST LINE, (Reported) Pantoprazole Sodium 40 Mg Tablet.dr, 40 MG PO BID Prescribed by: OWEN VARELA on 07/13/20 1049 Potassium Chloride 10 Meq Tablet.er, 10 MEQ PO DAILY, (Reported) Propranolol HCl 20 Mg Tablet, 20 MG PO BID, (Reported) Sucralfate 1 Gm Tablet, 1 GM PO DAILY, (Reported) Topiramate 100 Mg Tablet, 100 MG PO TID, (Reported) Patient Home Medication List Home Medication List Reviewed: Yes Review of Systems Review of Systems Constitutional: see HPI Eyes: Photophobia Ears, Nose, Mouth, Throat: no symptoms reported Respiratory: no symptoms reported Cardiovascular: no symptoms reported Gastrointestinal: see HPI Genitourinary: no symptoms reported Musculoskeletal: no symptoms reported Skin: No rash Psychiatric/Neurological: Headache Past Iuggsmz-Gjmjmq-Fgflpo Hx Past Med/Social Hx: Reviewed Nursing Past Med/Soc Hx Patient Social History Alcohol Use: Denies Use Type Used: Cigarettes Former Smoker, Quit: October 17, 2017 2nd Hand Smoke Exposure: No Recent Infectious Disease Expo: No Recent Hopitalizations: No Immunizations Up To Date Date of Influenza Vaccine: Mar 13, 2020 Seasonal Allergies Seasonal Allergies: Yes Past Medical History Surgeries: Yes Gallbladder Respiratory: No Currently Using CPAP: No Currently Using BIPAP: No Cardiac: No Neurological: Yes Headaches /Migraines Genitourinary: No Gastrointestinal: Yes (chronic gastritis, pyloric stenosis) Musculoskeletal: No Endocrine: Yes Hypothyroidsim HEENT: No Cancer: No Psychosocial: Yes Depression Integumentary: No Blood Disorders: No Family Medical History Cancer, Diabetes Physical Exam Vital Signs Vital Signs - First Documented 10/09/20 06:19 Temp 36.0 Pulse 70 Resp 16 B/P (MAP) 106/48 (67) Pulse Ox 100 O2 Delivery Room Air Capillary Refill : Less Than 3 Seconds Height, Weight, BMI Height: 5'3.00" Weight: 160lbs. 0oz. 72.077097mp; 30.00 BMI Method:Stated General Appearance: WD/WN, no apparent distress HEENT: PERRL/EOMI, pharynx normal Neck: non-tender, full range of motion, supple, normal inspection Cardiovascular: normal peripheral pulses, regular rate, rhythm Respiratory: chest non-tender, lungs clear, normal breath sounds Extremities: normal range of motion, normal capillary refill Psychiatric: alert, oriented x 3 Crainal Nerves: normal hearing, normal speech, PERRL Coordination/Gait: normal gait Motor/Sensory: no motor deficit, no sensory deficit Skin: normal color, warm/dry Progress/Results/Core Measures Results/Orders My Orders Orders - MIGUELITO GUZMÁN MD Ketorolac Injection (Toradol Injection) (10/09/20 06:25) Metoclopramide Injection (Reglan Injecti (10/09/20 06:25) Diphenhydramine Injection (Benadryl Inje (10/09/20 06:25) Vital Signs/I&O 5/8/21 06:19 Temp 36.0 Pulse 70 Resp 16 B/P (MAP) 106/48 (67) Pulse Ox 100 O2 Delivery Room Air Blood Pressure Mean: 67 Progress Progress Note : Progress Note will treat with her typical medicines that she states usually helps her migraine headaches. Toradol 60 mg IM, Benadryl 50 mg IM, Reglan 10 mg IM. Will discharge her to home to rest and try to break the cycle of her migraine headache. Rest in cool dark room and continue home meds. Departure Impression Primary Impression: Migraine headache without aura Qualified Codes: G43.009 - Migraine without aura, not intractable, without status migrainosus Disposition: HOME, SELF-CARE Condition: Stable Departure-Patient Inst. Decision time for Depature: 06:32 Referrals: ANDREW VILLARREAL MD (PCP/Family) Primary Care Physician Patient Instructions: Migraines (DC) Add. Discharge Instructions: Rest in a cool dark room. Continue your home medicines. Follow up with Dr. Villarreal and Migraine specialist All discharge instructions reviewed with patient and/or family. Voiced understanding. MIGUELITO GUZMÁN MD October 09, 2020 06:33
[2020-10-09 06:36] VITALS: BP 106/48
== END 2020-10-09 06:36 | disposition home or self-care (01) ==
LOC: EDUNIT# 06:15 → ER FS 06:17
DX: G43.009 Migraine without aura, not intractable, without status migrainosus (principal); F32.9 Major depressive disorder, single episode, unspecified; E03.9 Hypothyroidism, unspecified; Z88.8 Allergy status to other drugs, medicaments and biological substances; Z87.891 Personal history of nicotine dependence; Z79.82 Long term (current) use of aspirin; Z79.890 Hormone replacement therapy; Z79.899 Other long term (current) drug therapy
CPT/HCPCS: 99284

== ENCOUNTER 2020-10-13 19:51 | Emergency (ER) | payer MEDICARE, MEDICAID ==
[~2020-10-13] VITALS: Ht 160 cm; Wt 78.6 kg
[2020-10-13 20:18] VITALS: BP 111/74
[2020-10-13] MEDS ORDERED: PROCHLORPERAZINE 10 MG/2ML INJ (COMPAZINE) INJ ONE (20:30)
[2020-10-13] MEDS ORDERED: METOCLOPRAMIDE INJ 10 MG/2 ML (REGLAN) IM ONE (20:30)
[2020-10-13] MEDS ORDERED: diphenhydrAMINE 50 MG/ML INJ (BENADRYL) IM ONE (20:30)
--- NOTE | 2020-10-13 20:59 | ED General ---
General Chief Complaint: Head/Cervical Problems Stated Complaint: MIGRIANE Nursing Triage Note: pt states she woke up with a migraine this am, has taken meds at home but did not call Self Nursing Sepsis Screen: No Definite Risk Source of Information: Patient Exam Limitations: No Limitations History of Present Illness Date Seen by Provider: October 13, 2020 Time Seen by Provider: 20:15 Initial Comments Patient is a 40-year-old female that is well-known to this emergency department for history of recurrent migraines who presents with typical migraine headache starting several hours prior to ED arrival. Headache is described as dull throbbing associated with lights and sound sensitivity. No nausea or vomiting. No neck pain or stiffness. No extremity weakness or loss of sensation. Headache is described as moderate is not the worst headache of the patient's life. No medications or therapies taken prior to ED arrival. Timing/Duration: 4-6 Hours Severity: Moderate Modifying Factors: improves with Other Associated Systoms: Other Allergies and Home Medications Allergies Coded Allergies: zolmitriptan (Verified Adverse Reaction, Unknown, 09/29/19) Home Medications Aspirin/Acetaminophen/Caffeine 1 Each Tablet, 2 EACH PO Q6-8HR PRN for Headache, (Reported) Cetirizine HCl 10 Mg Tablet, 10 MG PO HS, (Reported) Citalopram Hydrobromide 40 Mg Tablet, 40 MG PO HS, (Reported) Ergocalciferol (Vitamin D2) 1,250 Mcg Capsule, 1,250 MCG PO WEEK, (Reported) Ferrous Sulfate 325 Mg Tablet, 325 MG PO DAILY, (Reported) Hydrocodone Bit/Acetaminophen 1 Tab Tab, 1 TAB PO Q4H PRN for PAIN-MODERATE (5- 7) Prescribed by: OWEN VARELA on 07/13/20 1050 Levothyroxine Sodium 88 Mcg Tablet, 88 MCG PO DAILY, (Reported) Montelukast Sodium 10 Mg Tablet, 10 MG PO HS, (Reported) Ondansetron 8 Mg Tab.rapdis, 8 MG PO Q8H PRN for NAUSEA/VOMITING-1ST LINE, (Reported) Pantoprazole Sodium 40 Mg Tablet.dr, 40 MG PO BID Prescribed by: OWEN VARELA on 07/13/20 1049 Potassium Chloride 10 Meq Tablet.er, 10 MEQ PO DAILY, (Reported) Propranolol HCl 20 Mg Tablet, 20 MG PO BID, (Reported) Sucralfate 1 Gm Tablet, 1 GM PO DAILY, (Reported) Topiramate 100 Mg Tablet, 100 MG PO TID, (Reported) Patient Home Medication List Home Medication List Reviewed: Yes Review of Systems Review of Systems Constitutional: see HPI EENTM: see HPI Respiratory: see HPI Cardiovascular: see HPI Gastrointestinal: see HPI Genitourinary: see HPI Musculoskeletal: see HPI Skin: see HPI Psychiatric/Neurological: See HPI Hematologic/Lymphatic: See HPI Immunological/Allergic: see HPI All Other Systems Reviewed Negative Unless Noted: Yes Past Ezupcqi-Sxllwt-Lyusqq Hx Past Med/Social Hx: Reviewed Nursing Past Med/Soc Hx Patient Social History Alcohol Use: Denies Use Smoking Status: Never a Smoker Type Used: Cigarettes Former Smoker, Quit: October 17, 2017 2nd Hand Smoke Exposure: No Recent Infectious Disease Expo: No Recent Hopitalizations: No Immunizations Up To Date Date of Influenza Vaccine: Mar 13, 2020 Seasonal Allergies Seasonal Allergies: Yes Past Medical History Surgeries: Yes Gallbladder Respiratory: No Currently Using CPAP: No Currently Using BIPAP: No Cardiac: No Neurological: Yes Headaches /Migraines Genitourinary: No Gastrointestinal: Yes (chronic gastritis, pyloric stenosis) Musculoskeletal: No Endocrine: Yes Hypothyroidsim HEENT: No Cancer: No Psychosocial: Yes Depression Integumentary: No Blood Disorders: No Family Medical History Cancer, Diabetes Physical Exam Vital Signs Vital Signs - First Documented 10/13/20 20:18 Temp 36.4 Pulse 96 Resp 16 B/P (MAP) 111/74 (86) Pulse Ox 97 O2 Delivery Room Air Capillary Refill : Less Than 3 Seconds Height, Weight, BMI Height: 5'3.00" Weight: 160lbs. 0oz. 72.369023pv; 30.00 BMI Method:Stated General Appearance: No Apparent Distress, WD/WN Eyes: Bilateral Eye Normal Inspection, Bilateral Eye PERRL, Bilateral Eye EOMI HEENT: PERRL/EOMI, Normal ENT Inspection Neck: Normal Inspection Respiratory: Lungs Clear Cardiovascular: Regular Rate, Rhythm Neurologic/Psychiatric: Alert, Oriented x3, No Motor/Sensory Deficits, clerical support II- XII Norm as Tested Focused Exam Sepsis Stage: Ruled Out Progress/Results/Core Measures Suspected Sepsis Recent Fever Within 48 Hours: No Infection Criteria Present: None New/Unexplained Altered Menta: No Sepsis Screen: No Definite Risk SIRS Temperature: Pulse: 96 Respiratory Rate: 16 Blood Pressure 111 /74 Mean: 86 Results/Orders My Orders Orders - DARCI ECHOLS DO Prochlorperazine Injection (Compazine In (10/13/20 20:30) Metoclopramide Injection (Reglan Injecti (10/13/20 20:30) Diphenhydramine Injection (Benadryl Inje (10/13/20 20:30) Medications Given in ED Current Medications Medications Dose Ordered Sig/Hernan Route Start Time Stop Time Status Last Admin Dose Admin Diphenhydramine HCl 100 mg ONCE ONCE IM 10/13/20 20:30 10/13/20 20:33 DC 10/13/20 20:45 100 MG Metoclopramide HCl 10 mg ONCE ONCE IM 10/13/20 20:30 10/13/20 20:33 DC 10/13/20 20:46 10 MG Prochlorperazine Edisylate 10 mg ONCE ONCE INJ 10/13/20 20:30 10/13/20 20:33 DC 10/13/20 20:45 10 MG Vital Signs/I&O 10/13/20 20:18 Temp 36.4 Pulse 96 Resp 16 B/P (MAP) 111/74 (86) Pulse Ox 97 O2 Delivery Room Air Capillary Refill : Less Than 3 Seconds Blood Pressure Mean: 86 Departure Communication (Admissions) Typical migraine headache. No neurologic deficits. Symptoms addressed with improvement. Patient requesting discharge home. Recommendations are for PCP/neurology follow-up for further management Impression Primary Impression: Migraine Disposition: 01 HOME, SELF-CARE Condition: Stable Departure-Patient Inst. Decision time for Depature: 20:59 Referrals: ANDREW DONAHUE MD (PCP/Family) Primary Care Physician Patient Instructions: Migraines (DC) Add. Discharge Instructions: Please increase daily fluids and continue current home medications. Follow-up with your PCP and neurologist as scheduled. All discharge instructions reviewed with patient and/or family. Voiced understanding. DARCI ECHOLS DO October 13, 2020 20:59
== END 2020-10-13 21:03 | disposition home or self-care (01) ==
LOC: EDUNIT# 19:51 → ER FS 19:52
DX: G43.909 Migraine, unspecified, not intractable, without status migrainosus (principal); E03.9 Hypothyroidism, unspecified; F32.9 Major depressive disorder, single episode, unspecified; Z88.8 Allergy status to other drugs, medicaments and biological substances; Z87.891 Personal history of nicotine dependence; Z79.890 Hormone replacement therapy; Z79.899 Other long term (current) drug therapy
CPT/HCPCS: 99284

== ENCOUNTER 2020-11-10 06:43 | Emergency (ER) | payer MEDICARE, MEDICAID ==
[~2020-11-10] VITALS: Ht 160 cm; Wt 78.9 kg
[2020-11-10 06:45] VITALS: BP 124/82
[2020-11-10] MEDS ORDERED: METOCLOPRAMIDE INJ 10 MG/2 ML (REGLAN) IM STA (07:09)
[2020-11-10] MEDS ORDERED: diphenhydrAMINE 50 MG/ML INJ (BENADRYL) IM STA (07:09)
[2020-11-10] MEDS ORDERED: KETOROLAC 60 MG/2 ML VIAL IM STA (07:09)
--- NOTE | 2020-11-10 07:21 | ED Headache ---
General Chief Complaint: Head/Cervical Problems Stated Complaint: MIGRIANE Nursing Triage Note: Patient states that she got a migraine around midnight. Patient took her prescribed medications at [facility] with no relief. Nursing Sepsis Screen: No Definite Risk Source: patient Exam Limitations: no limitations History of Present Illness Date Seen by Provider: Nov 10, 2020 Time Seen by Provider: 07:02 Initial Comments 40 yo female presents to the ED with complaints of recurrent migraine headache. She states it started around midnight and feels like her usual Migraine. She has an appointment on November 29 to see a Migraine/Headache specialist in [facility] in [place], [place]. She has nausea but no vomiting. No fever, chills, numbness, tingling, head injury, change in vision, burning with urination, di arrhea, chest pain, abdominal pain. Headache across front of head and forehead. Some light sensitivity. Tried her meds at home but did not help so came in to get shots before she started vomiting and got dehydrated. Timing/Duration: 4-6 hours Severity/Quality: severe Location: frontal Prior Headaches/Recent Trauma: no recent headache/trauma, chronic headaches Associated Symptoms: No confusion, No fatigue, No facial pain, No fever/chills, No flushing, No loss of consciousness; nausea/vomiting (nausea but no vomiting); No nasal congestion, No nasal drainage, No numbness in legs/feet, No rash, No seizures, No sinus infection, No stiff neck, No vision changes, No weakness Allergies and Home Medications Allergies Coded Allergies: zolmitriptan (Verified Adverse Reaction, Unknown, 09/29/19) Home Medications Aspirin/Acetaminophen/Caffeine 1 Each Tablet, 2 EACH PO Q6-8HR PRN for Headache, (Reported) Cetirizine HCl 10 Mg Tablet, 10 MG PO HS, (Reported) Citalopram Hydrobromide 40 Mg Tablet, 40 MG PO HS, (Reported) Ergocalciferol (Vitamin D2) 1,250 Mcg Capsule, 1,250 MCG PO WEEK, (Reported) Ferrous Sulfate 325 Mg Tablet, 325 MG PO DAILY, (Reported) Hydrocodone Bit/Acetaminophen 1 Tab Tab, 1 TAB PO Q4H PRN for PAIN-MODERATE (5- 7) Prescribed by: OWEN VARELA on 07/13/20 1050 Levothyroxine Sodium 88 Mcg Tablet, 88 MCG PO DAILY, (Reported) Montelukast Sodium 10 Mg Tablet, 10 MG PO HS, (Reported) Ondansetron 8 Mg Tab.rapdis, 8 MG PO Q8H PRN for NAUSEA/VOMITING-1ST LINE, (Reported) Pantoprazole Sodium 40 Mg Tablet.dr, 40 MG PO BID Prescribed by: OWEN VARELA on 07/13/20 1049 Potassium Chloride 10 Meq Tablet.er, 10 MEQ PO DAILY, (Reported) Propranolol HCl 20 Mg Tablet, 20 MG PO BID, (Reported) Sucralfate 1 Gm Tablet, 1 GM PO DAILY, (Reported) Topiramate 100 Mg Tablet, 100 MG PO TID, (Reported) Patient Home Medication List Home Medication List Reviewed: Yes Review of Systems Review of Systems Constitutional: No chills, No fever Eyes: Denies Blurred Vision; Photophobia (mild); Denies Vision Changes Ears, Nose, Mouth, Throat: see HPI Respiratory: no symptoms reported Cardiovascular: no symptoms reported Gastrointestinal: see HPI Genitourinary: No dysuria Musculoskeletal: no symptoms reported Skin: No rash Psychiatric/Neurological: See HPI Past Bsjirum-Xsqtrb-Fakibr Hx Past Med/Social Hx: Reviewed Nursing Past Med/Soc Hx Patient Social History Alcohol Use: Denies Use Smoking Status: Unknown if Ever Smoked Type Used: Cigarettes Former Smoker, Quit: October 17, 2017 2nd Hand Smoke Exposure: No Recent Infectious Disease Expo: No Recent Hopitalizations: No Immunizations Up To Date Date of Influenza Vaccine: Mar 13, 2020 Seasonal Allergies Seasonal Allergies: Yes Past Medical History Surgeries: Yes Gallbladder Respiratory: No Currently Using CPAP: No Currently Using BIPAP: No Cardiac: No Neurological: Yes Headaches /Migraines Genitourinary: No Gastrointestinal: Yes (chronic gastritis, pyloric stenosis) Musculoskeletal: No Endocrine: Yes Hypothyroidsim HEENT: No Cancer: No Psychosocial: Yes Depression Integumentary: No Blood Disorders: No Family Medical History Cancer, Diabetes Physical Exam Vital Signs Vital Signs - First Documented 11/10/20 06:45 Temp 36.1 Pulse 73 Resp 20 B/P (MAP) 124/82 (96) Pulse Ox 100 O2 Delivery Room Air Capillary Refill : Less Than 3 Seconds Height, Weight, BMI Height: 5'3.00" Weight: 160lbs. 0oz. 72.870384pq; 30.00 BMI Method:Stated General Appearance: WD/WN, no apparent distress HEENT: PERRL/EOMI, pharynx normal Neck: non-tender, full range of motion, supple, normal inspection Cardiovascular: normal peripheral pulses, regular rate, rhythm Respiratory: chest non-tender, lungs clear, normal breath sounds, no respiratory distress, no accessory muscle use Gastrointestinal: normal bowel sounds, soft, no pulsatile mass Extremities: normal range of motion, non-tender, normal inspection, normal capillary refill Psychiatric: alert, oriented x 3 Crainal Nerves: normal hearing, normal speech, PERRL Coordination/Gait: normal gait Motor/Sensory: no motor deficit, no sensory deficit Skin: normal color, warm/dry Progress/Results/Core Measures Results/Orders My Orders Orders - MIGUELITO GUZMÁN MD Ketorolac Injection (Toradol Injection) (11/10/20 07:09) Metoclopramide Injection (Reglan Injecti (11/10/20 07:09) Diphenhydramine Injection (Benadryl Inje (11/10/20 07:09) Vital Signs/I&O 11/10/20 06:45 Temp 36.1 Pulse 73 Resp 20 B/P (MAP) 124/82 (96) Pulse Ox 100 O2 Delivery Room Air Blood Pressure Mean: 96 Progress Progress Note : Progress Note Patient usually gets combination of 3 shots to help with her Migraine Headaches if she has to come to the ED when it does not respond to home medicine. She usually gets Toradol, Benadryl, Reglan. Occasionally she will get Compazine instead of Reglan and occasionally she will get Norflex for muscle spasm and tension in her neck. Will give Toradol, Benadryl and Reglan here and discharge home to rest in cool dark room. She reports her drove her here and is a vailable to take her home. Since she has no acute change in her symptoms and feels similar to prior Migraine headaches will treat with meds like she has gotten in past. Departure Impression Primary Impression: Migraine headache without aura Qualified Codes: G43.009 - Migraine without aura, not intractable, without status migrainosus Disposition: HOME, SELF-CARE Condition: Stable Departure-Patient Inst. Decision time for Depature: 07:21 Referrals: SELF,ANDREW BOLIVAR (PCP/Family) Primary Care Physician Patient Instructions: Home Headache Remedies, Migraines in Adults Add. Discharge Instructions: Rest in cool dark room Continue on your regular medicines. Keep appointment with specialist November 29 as scheduled at [facility] in [place]. All discharge instructions reviewed with patient and/or family. Voiced understanding. MIGUELITO GUZMÁN MD Nov 10, 2020 07:21
== END 2020-11-10 07:30 | disposition home or self-care (01) ==
LOC: EDUNIT# 06:43 → ER FS 06:44
DX: G43.009 Migraine without aura, not intractable, without status migrainosus (principal); F32.9 Major depressive disorder, single episode, unspecified; E03.9 Hypothyroidism, unspecified; Z88.8 Allergy status to other drugs, medicaments and biological substances; Z87.891 Personal history of nicotine dependence; Z79.890 Hormone replacement therapy; Z79.82 Long term (current) use of aspirin; Z79.899 Other long term (current) drug therapy
CPT/HCPCS: 99284

== ENCOUNTER 2021-11-01 19:36 | Emergency (ER) | payer MEDICARE, MEDICAID ==
[~2021-11-01] VITALS: Ht 160 cm; Wt 108.0 kg
[~2021-11-01 19:36] MED LIST changes: -ASPI-789 PO; +ASPI1TAB23 PO; -CITA40TA11 PO; +CITA40TA13 PO; +ERGO1250 PO; -ERGO50006 PO; +MONT-40 PO; -MONT10TA32 PO; +POTA-160 PO; -POTA10TA6 PO
[2021-11-01 20:01] LABS: BASOPHILS # (AUTO) 0.1 10^3/uL (0.0-0.1); BASOPHILS % (AUTO) 0 % (0-10); EOSINOPHILS # (AUTO) 0.3 10^3/uL (0.0-0.3); EOSINOPHILS % (AUTO) 3 % (0-10); HEMATOCRIT 39 % (35-52); HEMOGLOBIN 12.9 g/dL (11.5-16.0); LYMPHOCYTES # (AUTO) 3.4 10^3/uL (1.0-4.0); LYMPHOCYTES % (AUTO) 28 % (12-44); MEAN CORPUSCULAR HEMOGLOBIN 29 pg (25-34); MEAN CORPUSCULAR HGB CONC 33 g/dL (32-36); MEAN CORPUSCULAR VOLUME 89 fL (80-99); MEAN PLATELET VOLUME 8.5 fL (9.0-12.2); MONOCYTES # (AUTO) 0.6 10^3/uL (0.0-1.0); MONOCYTES % (AUTO) 5 % (0-12); NEUTROPHILS # (AUTO) 7.9 10^3/uL (1.8-7.8); NEUTROPHILS % (AUTO) 64 % (42-75); PLATELET COUNT 424 10^3/uL (130-400); WHITE BLOOD COUNT 12.4 10^3/uL (4.3-11.0)
--- NOTE | 2021-11-01 20:02 | ED Lower Extremity ---
General Chief Complaint: Lower Extremity Stated Complaint: SWOLLEN FEET Source: patient, old records History of Present Illness Date Seen by Provider: November 01, 2021 Time Seen by Provider: 19:40 Initial Comments 41-year-old female presenting with complaints of over 2 weeks of bilateral lower extremity swelling. She states that this started ever since she was on vacation in [place]. She has seen Dr. Villarreal about that and they advised her to wear compression socks. However these were too tight and were cutting into her legs and causing them to be purple when she first takes her socks off. She was started on Lasix today and took the first dose around noon. She has an appointment to see Dr. Villarreal in 3 weeks to follow-up about how this is helping her. She has not been able to get any larger compression socks because she had only gone to [facility] and they sold her the large size they had. They told her if she needed anything larger she would have to order it online or go somewhere else. Onset: other (Over 2 weeks) Severity: moderate Method of Injury: unknown Modifying Factors: Worse With Other (Having her legs down makes the swelling worse, elevating her legs seems to help) Allergies and Home Medications Allergies Coded Allergies: zolmitriptan (Verified Adverse Reaction, Unknown, 09/29/19) Patient Home Medication List Home Medication List Reviewed: Yes Aspirin/Acetaminophen/Caffeine (Excedrin Migraine Caplet) 1 Each Tablet, 2 EACH PO Q6-8HR PRN for Headache, (Reported) Entered as Reported by: NATE ZHU on 07/01/20 0950 Cetirizine HCl (Cetirizine HCl) 10 Mg Tablet, 10 MG PO HS, (Reported) Entered as Reported by: DIXIE BROWN on 07/21/19 1516 Citalopram Hydrobromide (Citalopram HBr) 40 Mg Tablet, 40 MG PO HS, (Reported) Entered as Reported by: MALINDA KOCH on 04/02/19 0947 Ergocalciferol (Vitamin D2) (Vitamin D2) 1,250 Mcg Capsule, 1,250 MCG PO WEEK, (Reported) Entered as Reported by: NATE ZHU on 07/01/20 0950 Ferrous Sulfate (Ferrous Sulfate) 325 Mg Tablet, 325 MG PO DAILY, (Reported) Entered as Reported by: DIXIE BROWN on 07/21/19 1516 Hydrocodone Bit/Acetaminophen (HYDROcodone/APAP 5 MG/325 MG TAB) 1 Tab Tab, 1 TAB PO Q4H PRN for PAIN-MODERATE (5-7) Prescribed by: OWEN VARELA on 07/13/20 1050 Levothyroxine Sodium (Levothyroxine Sodium) 88 Mcg Tablet, 88 MCG PO DAILY, (Reported) Entered as Reported by: DIXIE BROWN on 07/21/19 1516 Montelukast Sodium (Montelukast Sodium) 10 Mg Tablet, 10 MG PO HS, (Reported) Entered as Reported by: MALINDA OKCH on 04/02/19 0947 Ondansetron (Ondansetron Odt) 8 Mg Tab.rapdis, 8 MG PO Q8H PRN for NAUSEA/VOMITING-1ST LINE, (Reported) Entered as Reported by: NATE ZHU on 07/01/20 0950 Pantoprazole Sodium (Protonix) 40 Mg Tablet.dr, 40 MG PO BID Prescribed by: OWEN VARELA on 07/13/20 1049 Potassium Chloride (Klor-Con 10) 10 Meq Tablet.er, 10 MEQ PO DAILY, (Reported) Entered as Reported by: NATE ZHU on 07/01/20 0950 Propranolol HCl (Propranolol HCl) 20 Mg Tablet, 20 MG PO BID, (Reported) Entered as Reported by: DIXIE BROWN on 07/21/19 1516 Sucralfate (Sucralfate) 1 Gm Tablet, 1 GM PO DAILY, (Reported) Entered as Reported by: MALINDA KOCH on 06/16/20 1014 Topiramate (Topiramate) 100 Mg Tablet, 100 MG PO TID, (Reported) Entered as Reported by: MALINDA KOCH on 04/02/19 0947 Review of Systems Constitutional: No chills, No fever EENTM: no symptoms reported Respiratory: no symptoms reported Cardiovascular: no symptoms reported Gastrointestinal: no symptoms reported Genitourinary: no symptoms reported Musculoskeletal: see HPI Skin: change in color (She reports that her legs look purple and bruised when she first takes the compression socks off. This improves as she lets her legs rest) Psychiatric/Neurological: No Symptoms Reported Past Lmpadzq-Fbzxth-Lmrnlp Hx Seasonal Allergies Seasonal Allergies: Yes Past Medical History Surgery/Hospitalization HX: Migraine headaches Surgeries: Yes Gallbladder Respiratory: No Currently Using CPAP: No Currently Using BIPAP: No Cardiac: No Neurological: Yes Headaches /Migraines Genitourinary: No Gastrointestinal: Yes (chronic gastritis, pyloric stenosis) Musculoskeletal: No Endocrine: Yes Hypothyroidsim HEENT: No Cancer: No Psychosocial: Yes Depression Integumentary: No Blood Disorders: No Family Medical History Cancer, Diabetes Physical Exam Vital Signs Vital Signs - First Documented 11/01/21 19:40 Temp 36.0 Pulse 86 Resp 17 B/P (MAP) 115/94 (101) Pulse Ox 100 O2 Delivery Room Air Capillary Refill : Height, Weight, BMI Height: 5'3.00" Weight: 160lbs. 0oz. 72.551067ys; 30.00 BMI Method:Stated General Appearance: no apparent distress Cardiovascular: normal peripheral pulses, regular rate, rhythm Knees: bilateral knee swelling (2+ pitting edema from the knees down to her toes) Neurologic/Tendon: normal sensation, normal motor functions, normal tendon functions Neurologic/Psychiatric: alert, oriented x 3 Skin: normal color, warm/dry Progress/Results/Core Measures Results/Orders Lab Results Laboratory Tests Test 11/01/21 19:45 Range/Units White Blood Count 12.4 H 4.3-11.0 10^3/uL Red Blood Count 4.40 3.80-5.11 10^6/uL Hemoglobin 12.9 11.5-16.0 g/dL Hematocrit 39 35-52 % Mean Corpuscular Volume 89 80-99 fL Mean Corpuscular Hemoglobin 29 25-34 pg Mean Corpuscular Hemoglobin Concent 33 32-36 g/dL Red Cell Distribution Width 12.6 10.0-14.5 % Platelet Count 424 H 130-400 10^3/uL Mean Platelet Volume 8.5 L 9.0-12.2 fL Immature Granulocyte % (Auto) 1 % Neutrophils (%) (Auto) 64 42-75 % Lymphocytes (%) (Auto) 28 12-44 % Monocytes (%) (Auto) 5 0-12 % Eosinophils (%) (Auto) 3 0-10 % Basophils (%) (Auto) 0 0-10 % Neutrophils # (Auto) 7.9 H 1.8-7.8 10^3/uL Lymphocytes # (Auto) 3.4 1.0-4.0 10^3/uL Monocytes # (Auto) 0.6 0.0-1.0 10^3/uL Eosinophils # (Auto) 0.3 0.0-0.3 10^3/uL Basophils # (Auto) 0.1 0.0-0.1 10^3/uL Immature Granulocyte # (Auto) 0.1 0.0-0.1 10^3/uL Sodium Level 136 135-145 MMOL/L Potassium Level 4.0 3.6-5.0 MMOL/L Chloride Level 103 98-107 MMOL/L Carbon Dioxide Level 21 21-32 MMOL/L Anion Gap 12 5-14 MMOL/L Blood Urea Nitrogen 23 H 7-18 MG/DL Creatinine 1.08 0.60-1.30 MG/DL Estimat Glomerular Filtration Rate 65 BUN/Creatinine Ratio 21 Glucose Level 111 H 70-105 MG/DL Calcium Level 8.9 8.5-10.1 MG/DL Corrected Calcium 9.1 8.5-10.1 MG/DL Total Bilirubin < 0.2 0.1-1.0 MG/DL Aspartate Amino Transf (AST/SGOT) 17 5-34 U/L Alanine Aminotransferase (ALT/SGPT) 15 0-55 U/L Alkaline Phosphatase 209 H 40-136 U/L Pro-B-Type Natriuretic Peptide 505.6 H <75.0 PG/ML Total Protein 7.2 6.4-8.2 GM/DL Albumin 3.8 3.2-4.5 GM/DL My Orders Orders - MIGUELITO GUZMÁN MD Cbc With Automated Diff (11/01/21 19:55) Comprehensive Metabolic Panel (11/01/21 19:55) Probnp Fs (11/01/21 19:55) Vital Signs/I&O 11/01/21 11/01/21 19:40 20:37 Temp 36.0 Pulse 86 78 Resp 17 17 B/P (MAP) 115/94 (101) 118/88 Pulse Ox 100 100 O2 Delivery Room Air Room Air Progress Progress Note #1: Progress Note Counseled patient to check with [facility] about larger sized compression socks since they are medical equipment company. Will check basic labs to look at her blood counts and make sure she is not anemic, chemistry to look for renal or hepatic failure, proBNP to look for heart failure. Provided these are stable and not show any acute significant abnormality will recommend patient continue with diuretic and then see about the larger compression socks at the end of the week when she gets her monthly income Progress Note #2: Progress Note Labs shows mild elevation of her white blood cell count to 12.4. She has no acute significant abnormality on her chemistry to explain her swelling in bilateral legs. Encouraged to try to get a slightly larger size of compression socks so that they do not cut into her skin as bad. Check back with the clinic as she is taking the water pill for helping with her leg swelling Departure Impression Primary Impression: Bilateral lower extremity edema Disposition: HOME, SELF-CARE Condition: Stable Departure-Patient Inst. Decision time for Depature: 20:31 Referrals: SELFANDREW MD (PCP/Family) Primary Care Physician Patient Instructions: Dependent Edema (DC) Add. Discharge Instructions: Try to elevate your feet and legs when you can. This can help with the swelling in your legs. Continue on the water pill that was prescribed by the clinic. This should help decrease the fluid and swelling in your legs. Check with [facility] to see if they have larger sized compression socks. Follow up with clinic for continued concerns or if not improving. All discharge instructions reviewed with patient and/or family. Voiced understanding. MIGUELITO GUZMÁN MD November 01, 2021 20:02
[2021-11-01 20:34] LABS: ALANINE AMINOTRANSFERASE 15 U/L (0-55); ALKALINE PHOSPHATASE 209 U/L (40-136); BILIRUBIN,TOTAL < 0.2 MG/DL (0.1-1.0); BUN/CREATININE RATIO 21; CALCIUM 8.9 MG/DL (8.5-10.1); CARBON DIOXIDE 21 MMOL/L (21-32); CHLORIDE 103 MMOL/L (98-107); CREATININE SERUM 1.08 MG/DL (0.60-1.30); GFR ESTIMATED 65; GLUCOSE 111 MG/DL (70-105); SODIUM 136 MMOL/L (135-145)
[2021-11-01 20:35] LABS: ALBUMIN 3.8 GM/DL (3.2-4.5); TOTAL PROTEIN 7.2 GM/DL (6.4-8.2)
[2021-11-01 20:37] VITALS: BP 118/88
== END 2021-11-01 20:37 | disposition home or self-care (01) ==
LOC: EDUNIT# 19:36 → ER FS 19:37
DX: R60.0 Localized edema (principal); M79.89 Other specified soft tissue disorders; D72.829 Elevated white blood cell count, unspecified
CPT/HCPCS: 36415; 80053; 83880; 85025

== ENCOUNTER 2021-11-13 09:25 | Emergency (ER) | payer MEDICARE, MEDICAID ==
[~2021-11-13] VITALS: Ht 160 cm; Wt 107.0 kg
[2021-11-13 09:37] VITALS: BP 140/88
[2021-11-13] MEDS ORDERED: diphenhydrAMINE 50 MG/ML INJ (BENADRYL) IM STA (09:39)
[2021-11-13] MEDS ORDERED: METOCLOPRAMIDE INJ 10 MG/2 ML (REGLAN) IM STA (09:39)
[2021-11-13] MEDS ORDERED: KETOROLAC 30 MG/ML VIAL IM STA (09:39)
--- NOTE | 2021-11-13 09:39 | ED Headache ---
General Chief Complaint: Head/Cervical Problems Stated Complaint: HEADACHE History of Present Illness Date Seen by Provider: Nov 13, 2021 Time Seen by Provider: 09:35 Initial Comments 41-year-old female presents with a migraine. She has some mild nausea but no other reported symptoms. Patient has a history of migraines and reports that this is similar to them in the past. She tried her home medications and that did not help. Patient reports that in the past when this is happened she presents and gets "3 shots" that normally help and Toradol Benadryl and Reglan. Patient denies any vomiting, fever, chills or other systemic complaints. Allergies and Home Medications Allergies Coded Allergies: zolmitriptan (Verified Adverse Reaction, Unknown, 09/29/19) Patient Home Medication List Home Medication List Reviewed: Yes Aspirin/Acetaminophen/Caffeine (Excedrin Migraine Caplet) 1 Each Tablet, 2 EACH PO Q6-8HR PRN for Headache, (Reported) Entered as Reported by: NATE ZHU on 07/01/20 0950 Cetirizine HCl (Cetirizine HCl) 10 Mg Tablet, 10 MG PO HS, (Reported) Entered as Reported by: DIXIE BROWN on 07/21/19 1516 Citalopram Hydrobromide (Citalopram HBr) 40 Mg Tablet, 40 MG PO HS, (Reported) Entered as Reported by: MALINDA KOCH on 04/02/19 0947 Ergocalciferol (Vitamin D2) (Vitamin D2) 1,250 Mcg Capsule, 1,250 MCG PO WEEK, (Reported) Entered as Reported by: NATE ZHU on 07/01/20 0950 Ferrous Sulfate (Ferrous Sulfate) 325 Mg Tablet, 325 MG PO DAILY, (Reported) Entered as Reported by: DIXIE BROWN on 07/21/19 1516 Hydrocodone Bit/Acetaminophen (HYDROcodone/APAP 5 MG/325 MG TAB) 1 Tab Tab, 1 TAB PO Q4H PRN for PAIN-MODERATE (5-7) Prescribed by: OWEN VARELA on 07/13/20 1050 Levothyroxine Sodium (Levothyroxine Sodium) 88 Mcg Tablet, 88 MCG PO DAILY, (Reported) Entered as Reported by: DIXIE BROWN on 07/21/19 1516 Montelukast Sodium (Montelukast Sodium) 10 Mg Tablet, 10 MG PO HS, (Reported) Entered as Reported by: MALINDA KOCH on 04/02/19 0947 Ondansetron (Ondansetron Odt) 8 Mg Tab.rapdis, 8 MG PO Q8H PRN for NAUSEA/VOMITING-1ST LINE, (Reported) Entered as Reported by: NATE ZHU on 07/01/20 0950 Pantoprazole Sodium (Protonix) 40 Mg Tablet.dr, 40 MG PO BID Prescribed by: OWEN VARELA on 07/13/20 1049 Potassium Chloride (Klor-Con 10) 10 Meq Tablet.er, 10 MEQ PO DAILY, (Reported) Entered as Reported by: NATE ZHU on 07/01/20 0950 Propranolol HCl (Propranolol HCl) 20 Mg Tablet, 20 MG PO BID, (Reported) Entered as Reported by: DIXIE BROWN on 07/21/19 1516 Sucralfate (Sucralfate) 1 Gm Tablet, 1 GM PO DAILY, (Reported) Entered as Reported by: MALINDA KOCH on 06/16/20 1014 Topiramate (Topiramate) 100 Mg Tablet, 100 MG PO TID, (Reported) Entered as Reported by: MALINDA KOCH on 04/02/19 0947 Review of Systems Review of Systems Constitutional: No chills, No fever Eyes: No Symptoms Reported Ears, Nose, Mouth, Throat: no symptoms reported Respiratory: No cough, No short of breath Cardiovascular: No chest pain, No palpitations Gastrointestinal: No abdominal pain; nausea; No vomiting Genitourinary: no symptoms reported Musculoskeletal: no symptoms reported Skin: no symptoms reported Psychiatric/Neurological: No Symptoms Reported Past Sulpkhi-Lufnrp-Lhapch Hx Immunizations Up To Date First/Initial COVID19 Vaccinat: denies Seasonal Allergies Seasonal Allergies: Yes Past Medical History Surgery/Hospitalization HX: Migraine headaches Surgeries: Yes Gallbladder Respiratory: No Currently Using CPAP: No Currently Using BIPAP: No Cardiac: No Neurological: Yes Headaches /Migraines Genitourinary: No Gastrointestinal: Yes (chronic gastritis, pyloric stenosis) Musculoskeletal: No Endocrine: Yes Hypothyroidsim HEENT: No Cancer: No Psychosocial: Yes Depression Integumentary: No Blood Disorders: No Family Medical History Cancer, Diabetes Physical Exam Vital Signs Vital Signs - First Documented 11/13/21 09:37 Temp 36.8 Pulse 77 Resp 18 B/P (MAP) 140/88 (105) Pulse Ox 98 O2 Delivery Room Air Capillary Refill : Height, Weight, BMI Height: 5'3.00" Weight: 160lbs. 0oz. 72.931302ht; 42.00 BMI Method:Stated General Appearance: WD/WN, no apparent distress Cardiovascular: normal peripheral pulses, regular rate, rhythm Respiratory: lungs clear, normal breath sounds Gastrointestinal: non tender, soft Psychiatric: alert, oriented x 3 Crainal Nerves: normal speech, PERRL Coordination/Gait: normal gait Motor/Sensory: no motor deficit, no sensory deficit Skin: normal color, warm/dry Progress/Results/Core Measures Results/Orders My Orders Orders - PAZ ANGELO DO Metoclopramide Injection (Reglan Injecti (11/13/21 09:39) Ketorolac Injection (Toradol Injection) (11/13/21 09:39) Diphenhydramine Injection (Benadryl Inje (11/13/21 09:39) Vital Signs/I&O 11/13/21 09:37 Temp 36.8 Pulse 77 Resp 18 B/P (MAP) 140/88 (105) Pulse Ox 98 O2 Delivery Room Air Progress Progress Note : Progress Note Patient with a typical migraine for her. We will treat her with Toradol Reglan and Benadryl as has helped in the past. Patient will then be discharged home to rest and cool dark room. She was stable upon discharge Departure Impression Primary Impression: Migraine Qualified Codes: G43.009 - Migraine without aura, not intractable, without status migrainosus Disposition: 01 HOME, SELF-CARE Condition: Stable Departure-Patient Inst. Referrals: SELFANDREW MD (PCP) Primary Care Physician Patient Instructions: Migraines (DC) Add. Discharge Instructions: Follow-up with your primary care provider as needed Get plenty of rest, drink plenty of fluids All discharge instructions reviewed with patient and/or family. Voiced understanding. PAZ ANGELO DO Nov 13, 2021 09:39
== END 2021-11-13 10:08 | disposition home or self-care (01) ==
LOC: EDUNIT# 09:25 → ER FS 09:26
DX: G43.909 Migraine, unspecified, not intractable, without status migrainosus (principal); Z28.310 Unvaccinated for COVID-19
CPT/HCPCS: 99284

== ENCOUNTER 2021-11-22 10:03 | Emergency (ER) | payer MEDICARE, MEDICAID ==
[~2021-11-22] VITALS: Ht 160 cm; Wt 103.1 kg
[2021-11-22] MEDS ORDERED: ONDANSETRON 4 MG (ZOFRAN) ORAL DISSOLVE TAB PO STA (10:28)
[2021-11-22] MEDS ORDERED: LORazepam 0.5 MG (ATIVAN) TABLET PO STA (10:28)
--- NOTE | 2021-11-22 10:30 | ED Abdominal Pain ---
General Chief Complaint: Abdominal/GI Problems Stated Complaint: LIGHT HEADED, VOMITING, DIARRHEA Source of Information: Patient Exam Limitations: No Limitations History of Present Illness Date Seen by Provider: Nov 22, 2021 Time Seen by Provider: 10:15 Initial Comments Patient is a 41-year-old female with history of intermittent migraines, has had dizziness for the past 5 days. Patient was treated here over the weekend for the same. She states her symptoms improved, but today her migraine returned while in the shower. She reports feeling dizzy nauseated with typical migraine like headache described as dull throbbing and retro-orbital. This is not the worst headache of the patient's life. Patient is also being treated for an inner ear infection is taking steroids and meclizine. Denies fever chills, sweats, denies change in vision, neck pain, stiffness extremity weakness or loss of sensation or loss of balance. No other acute symptoms or complaints. Carlos wakefield is not a diabetic. Timing/Duration: 4-6 Hours, 5-6 Days Severity/Quality: Other Location: Other Radiation: Other Activities at Onset: Other Modifying Factors: Improves With Other Associated Symptoms: Other Allergies and Home Medications Allergies Coded Allergies: zolmitriptan (Verified Adverse Reaction, Unknown, 09/29/19) Patient Home Medication List Home Medication List Reviewed: Yes Aspirin/Acetaminophen/Caffeine (Excedrin Migraine Caplet) 1 Each Tablet, 2 EACH PO Q6-8HR PRN for Headache, (Reported) Entered as Reported by: NATE ZHU on 07/01/20 0950 Cetirizine HCl (Cetirizine HCl) 10 Mg Tablet, 10 MG PO HS, (Reported) Entered as Reported by: DIXIE BROWN on 07/21/19 1516 Citalopram Hydrobromide (Citalopram HBr) 40 Mg Tablet, 40 MG PO HS, (Reported) Entered as Reported by: MALINDA KOCH on 04/02/19 0947 Ergocalciferol (Vitamin D2) (Vitamin D2) 1,250 Mcg Capsule, 1,250 MCG PO WEEK, (Reported) Entered as Reported by: NATE ZHU on 07/01/20 0950 Ferrous Sulfate (Ferrous Sulfate) 325 Mg Tablet, 325 MG PO DAILY, (Reported) Entered as Reported by: DIXIE BROWN on 07/21/19 1516 Hydrocodone Bit/Acetaminophen (HYDROcodone/APAP 5 MG/325 MG TAB) 1 Tab Tab, 1 TAB PO Q4H PRN for PAIN-MODERATE (5-7) Prescribed by: OWEN VARELA on 07/13/20 1050 Levothyroxine Sodium (Levothyroxine Sodium) 88 Mcg Tablet, 88 MCG PO DAILY, (Reported) Entered as Reported by: DIXIE BROWN on 07/21/19 1516 Montelukast Sodium (Montelukast Sodium) 10 Mg Tablet, 10 MG PO HS, (Reported) Entered as Reported by: MALINDA KOCH on 04/02/19 0947 Ondansetron (Ondansetron Odt) 8 Mg Tab.rapdis, 8 MG PO Q8H PRN for NAUSEA/VOMITING-1ST LINE, (Reported) Entered as Reported by: NATE ZHU on 07/01/20 0950 Pantoprazole Sodium (Protonix) 40 Mg Tablet.dr, 40 MG PO BID Prescribed by: OWEN VARELA on 07/13/20 1049 Potassium Chloride (Klor-Con 10) 10 Meq Tablet.er, 10 MEQ PO DAILY, (Reported) Entered as Reported by: NATE ZHU on 07/01/20 0950 Propranolol HCl (Propranolol HCl) 20 Mg Tablet, 20 MG PO BID, (Reported) Entered as Reported by: DIXIE BROWN on 07/21/19 1516 Sucralfate (Sucralfate) 1 Gm Tablet, 1 GM PO DAILY, (Reported) Entered as Reported by: MALINDA KOCH on 06/16/20 1014 Topiramate (Topiramate) 100 Mg Tablet, 100 MG PO TID, (Reported) Entered as Reported by: MALINDA KOCH on 04/02/19 0947 Review of Systems Review of Systems Constitutional: see HPI EENTM: See HPI Respiratory: See HPI Cardiovascular: See HPI Gastrointestinal: See HPI Genitourinary: See HPI Musculoskeletal: see HPI Skin: see HPI Psychiatric/Neurological: See HPI Endocrine: See HPI Hematologic/Lymphatic: See HPI All Other Systems Reviewed Negative Unless Noted: Yes Past Hnmmobm-Ikkvox-Quoyrj Hx Patient Social History Tobacco Use?: No Immunizations Up To Date First/Initial COVID19 Vaccinat: denies Seasonal Allergies Seasonal Allergies: Yes Past Medical History Surgery/Hospitalization HX: Migraine headaches Surgeries: Yes Gallbladder Respiratory: No Currently Using CPAP: No Currently Using BIPAP: No Cardiac: No Neurological: Yes Headaches /Migraines Genitourinary: No Gastrointestinal: Yes (chronic gastritis, pyloric stenosis) Musculoskeletal: No Endocrine: Yes Hypothyroidsim HEENT: No Cancer: No Psychosocial: Yes Depression Integumentary: No Blood Disorders: No Family Medical History Cancer, Diabetes Physical Exam Vital Signs Capillary Refill : Height/Weight/BMI Height: 5'3.00" Weight: 160lbs. 0oz. 72.468547oj; 41.00 BMI Method:Stated General Appearance: WD/WN, no apparent distress HEENT: PERRL/EOMI, normal ENT inspection, pharynx normal Neck: non-tender, full range of motion Respiratory: chest non-tender, lungs clear, normal breath sounds Cardiovascular: normal peripheral pulses, regular rate, rhythm Gastrointestinal: non tender, soft Extremities: normal range of motion, non-tender Neurologic/Psychiatric: no motor/sensory deficits, alert, normal mood/affect, oriented x 3 Focused Exam Sepsis Stage: Ruled Out Progress/Results/Core Measures Results/Orders My Orders Orders - DARCI ECHOLS DO Ondansetron Oral Dissolve Tab (Zofran (11/22/21 10:28) Lorazepam Tablet (Ativan Tablet) (11/22/21 10:28) Accucheck Stat ONCE (11/22/21 10:29) Departure Communication (Admissions) Patient with typical migraine headache. Typical migraine cocktail provided with improvement of symptoms. No vomiting in the emergency department. Accu-Chek obtained will discharge home with nausea medications with instructions to follow-up with PCP for further management of dizziness and inner ear infection. Return precautions reviewed. Patient verbalizes understanding agreement with discharge instructions prior to departure. Impression Primary Impression: Migraine Additional Impression: Vertigo Disposition: 01 HOME, SELF-CARE Condition: Stable Departure-Patient Inst. Referrals: SELF,ANDREW BOLIVAR (PCP/Family) Primary Care Physician Patient Instructions: Vertigo ED, Migraines (DC) Add. Discharge Instructions: You were evaluated in the emergency department for vertigo and migraines. Please go home and rest, continue home medications and take nausea medication as prescribed. You may follow-up with your PCP in 1 to 2 days for reevaluation if symptoms persist. Return to the ED if new or worsening symptoms All discharge instructions reviewed with patient and/or family. Voiced understanding. Scripts Ondansetron (Ondansetron Odt) 4 Mg Tab.rapdis 4 MG PO Q6H, #10 TAB Prov: DARCI ECHOLS DO 11/22/21 DARCI ECHOLS DO Nov 22, 2021 10:30
[2021-11-22] MEDS ORDERED: ONDA4TAB11 PO (10:37)
[2021-11-22] MEDS ORDERED: KETOROLAC 60 MG/2 ML VIAL IM ONE (10:45)
[2021-11-22] MEDS ORDERED: diphenhydrAMINE 50 MG/ML INJ (BENADRYL) IVP ONE (10:45)
[2021-11-22] MEDS ORDERED: PROCHLORPERAZINE 10 MG/2ML INJ (COMPAZINE) IM ONE (10:45)
[2021-11-22 10:48] VITALS: BP 127/68
== END 2021-11-22 10:48 | disposition home or self-care (01) ==
LOC: EDUNIT# 10:03 → ER FS 10:06
DX: G43.909 Migraine, unspecified, not intractable, without status migrainosus (principal); Z28.310 Unvaccinated for COVID-19
CPT/HCPCS: 82947

== ENCOUNTER 2021-12-29 11:02 | Emergency (ER) | payer MEDICARE, MEDICAID ==
[~2021-12-29] VITALS: Ht 162 cm; Wt 81.0 kg
[2021-12-29 11:32] VITALS: BP 133/79
[2021-12-29] MEDS ORDERED: KETOROLAC 60 MG/2 ML VIAL IM ONE (11:45)
[2021-12-29] MEDS ORDERED: METOCLOPRAMIDE INJ 10 MG/2 ML (REGLAN) IM ONE (11:45)
[2021-12-29] MEDS ORDERED: diphenhydrAMINE 50 MG/ML INJ (BENADRYL) IM ONE (11:45)
--- NOTE | 2021-12-29 12:12 | ED Headache ---
General Chief Complaint: Head/Cervical Problems Stated Complaint: HEADACHE Nursing Triage Note: Patient has presented to ER with cc of a headache that started about 0200 AM. She reports taking her home medication but they are not helping today. Source: patient Exam Limitations: no limitations History of Present Illness Date Seen by Provider: Dec 29, 2021 Time Seen by Provider: 11:25 Initial Comments 41-year-old female patient with history of depression, hypothyroidism, migraine headache complaining of headache. Patient states she woke up at 2 AM today because of frontal throbbing and sharp pain as a constant pain, associated with nausea, photophobia, phonophobia. Patient states she took her migraine headache and nausea medication at 2 AM without improvement of her pain. Patient rated her pain 8/10 and stated she gets cocktail of 3 medication in ER for her pain. Patient has had frequent emergency room visit. Patient denies fever, focal neurodeficit, vomiting, , head injury. Patient states her migraine headache is like her previous episodes of headache. Allergies and Home Medications Allergies Coded Allergies: zolmitriptan (Verified Adverse Reaction, Unknown, 09/29/19) Patient Home Medication List Home Medication List Reviewed: Yes Aspirin/Acetaminophen/Caffeine (Excedrin Migraine Caplet) 1 Each Tablet, 2 EACH PO Q6-8HR PRN for Headache, (Reported) Entered as Reported by: NATE ZHU on 07/01/20 0950 Cetirizine HCl (Cetirizine HCl) 10 Mg Tablet, 10 MG PO HS, (Reported) Entered as Reported by: DIXIE BROWN on 07/21/19 1516 Citalopram Hydrobromide (Citalopram HBr) 40 Mg Tablet, 40 MG PO HS, (Reported) Entered as Reported by: MALINDA KOCH on 04/02/19 0947 Ergocalciferol (Vitamin D2) (Vitamin D2) 1,250 Mcg Capsule, 1,250 MCG PO WEEK, (Reported) Entered as Reported by: NATE ZHU on 07/01/20 0950 Ferrous Sulfate (Ferrous Sulfate) 325 Mg Tablet, 325 MG PO DAILY, (Reported) Entered as Reported by: DIXIE BROWN on 07/21/19 1516 Hydrocodone Bit/Acetaminophen (HYDROcodone/APAP 5 MG/325 MG TAB) 1 Tab Tab, 1 TAB PO Q4H PRN for PAIN-MODERATE (5-7) Prescribed by: OWEN VARELA on 07/13/20 1050 Levothyroxine Sodium (Levothyroxine Sodium) 88 Mcg Tablet, 88 MCG PO DAILY, (Reported) Entered as Reported by: DIXIE BROWN on 07/21/19 1516 Montelukast Sodium (Montelukast Sodium) 10 Mg Tablet, 10 MG PO HS, (Reported) Entered as Reported by: MALINDA KOCH on 04/02/19 0947 Ondansetron (Ondansetron Odt) 8 Mg Tab.rapdis, 8 MG PO Q8H PRN for NAUSEA/VOMITING-1ST LINE, (Reported) Entered as Reported by: NATE ZHU on 07/01/20 0950 Ondansetron (Ondansetron Odt) 4 Mg Tab.rapdis, 4 MG PO Q6H Prescribed by: DARCI ECHOLS on 11/22/21 1037 Pantoprazole Sodium (Protonix) 40 Mg Tablet.dr, 40 MG PO BID Prescribed by: OWEN VARELA on 07/13/20 1049 Potassium Chloride (Klor-Con 10) 10 Meq Tablet.er, 10 MEQ PO DAILY, (Reported) Entered as Reported by: NATE ZHU on 07/01/20 0950 Propranolol HCl (Propranolol HCl) 20 Mg Tablet, 20 MG PO BID, (Reported) Entered as Reported by: DIXIE BROWN on 07/21/19 1516 Sucralfate (Sucralfate) 1 Gm Tablet, 1 GM PO DAILY, (Reported) Entered as Reported by: MALINDA KOCH on 06/16/20 1014 Topiramate (Topiramate) 100 Mg Tablet, 100 MG PO TID, (Reported) Entered as Reported by: MALINDA KOCH on 04/02/19 0947 Review of Systems Review of Systems Constitutional: no symptoms reported Eyes: See HPI; Denies Blurred Vision; Photophobia Ears, Nose, Mouth, Throat: no symptoms reported Respiratory: no symptoms reported Cardiovascular: no symptoms reported Gastrointestinal: nausea Genitourinary: no symptoms reported : No Musculoskeletal: no symptoms reported Skin: no symptoms reported Psychiatric/Neurological: Depressed All Other Systems Reviewed Negative Unless Noted: Yes Past Feuqguw-Kcylii-Otdiqe Hx Patient Social History Tobacco Use?: No Use of E-Cig and/or Vaping dev: No Substance use?: No Alcohol Use?: No Immunizations Up To Date First/Initial COVID19 Vaccinat: denies Seasonal Allergies Seasonal Allergies: Yes Past Medical History Surgery/Hospitalization HX: Migraine headaches Surgeries: Yes Gallbladder Respiratory: No Currently Using CPAP: No Currently Using BIPAP: No Cardiac: No Neurological: Yes Headaches /Migraines Genitourinary: No Gastrointestinal: Yes (chronic gastritis, pyloric stenosis) Musculoskeletal: No Endocrine: Yes Hypothyroidsim HEENT: No Cancer: No Psychosocial: Yes Depression Integumentary: No Blood Disorders: No Family Medical History Cancer, Diabetes Physical Exam Vital Signs Vital Signs - First Documented 12/29/21 11:32 Temp 36.2 Pulse 84 Resp 18 B/P (MAP) 133/79 (97) Pulse Ox 97 O2 Delivery Nasal Cannula Capillary Refill : Height, Weight, BMI Height: 5'3.00" Weight: 160lbs. 0oz. 72.162005jo; 30.00 BMI Method:Stated General Appearance: WD/WN, no apparent distress HEENT: PERRL/EOMI, normal ENT inspection Neck: non-tender, full range of motion Cardiovascular: normal peripheral pulses, regular rate, rhythm, no edema, no gallop Respiratory: chest non-tender, lungs clear, normal breath sounds, no respiratory distress, no accessory muscle use Gastrointestinal: non tender, soft Back: normal inspection Extremities: normal range of motion, non-tender, normal inspection, no pedal edema Psychiatric: alert, oriented x 3 Crainal Nerves: normal hearing, normal speech, PERRL Motor/Sensory: no motor deficit, no sensory deficit Skin: normal color, warm/dry Lymphatic: no adenopathy Comments Looks very comfortable but rated her pain 8/10. Progress/Results/Core Measures Results/Orders My Orders Orders - ALPHONSO CONRAD MD Ketorolac Injection (Toradol Injection) (12/29/21 11:45) Diphenhydramine Injection (Benadryl Inje (12/29/21 11:45) Metoclopramide Injection (Reglan Injecti (12/29/21 11:45) Medications Given in ED Current Medications Medications Dose Ordered Sig/Hernan Route Start Time Stop Time Status Last Admin Dose Admin Diphenhydramine HCl 25 mg ONCE ONCE IM 12/29/21 11:45 12/29/21 11:46 DC 12/29/21 11:49 25 MG Ketorolac Tromethamine 30 mg ONCE ONCE IM 12/29/21 11:45 12/29/21 11:46 DC 12/29/21 11:47 30 MG Metoclopramide HCl 10 mg ONCE ONCE IM 12/29/21 11:45 12/29/21 11:46 DC 12/29/21 11:47 10 MG Vital Signs/I&O 12/29/21 11:32 Temp 36.2 Pulse 84 Resp 18 B/P (MAP) 133/79 (97) Pulse Ox 97 O2 Delivery Nasal Cannula Blood Pressure Mean: 97 Progress Progress Note : Progress Note Evaluation of patient in ER showed 41-year-old female patient with history of recurrent migraine headache and frequent emergency room visit complaining of another episode of migraine headache since 2 AM today. Patient had unremarkable physical exam. Patient have 30 mg of Toradol IM, 25 mg of Benadryl IM, 10 mg of Reglan IM. Short time after her injection she walked out of her room and asking for discharge paper. 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 Departure Impression Primary Impression: Migraine headache without aura Qualified Codes: G43.009 - Migraine without aura, not intractable, without status migrainosus Additional Impression: Nausea Disposition: 01 HOME, SELF-CARE Condition: Improved Departure-Patient Inst. Decision time for Depature: 12:11 Referrals: ANDREW DONAHUE MD (PCP) Primary Care Physician Patient Instructions: Migraines (DC), How to Keep Track of Your Headaches, Home Headache Remedies Add. Discharge Instructions: Continue home medication Rest at cold and dark room Drink plenty of liquids Follow-up with your primary care physician/neurologist for recurrent migraine headache Return to ER as needed All discharge instructions reviewed with patient and/or family. Voiced understanding. ALPHONSO CONRAD MD Dec 29, 2021 12:12
== END 2021-12-29 12:15 | disposition home or self-care (01) ==
LOC: EDUNIT# 11:02 → ER FS 11:03
DX: G43.009 Migraine without aura, not intractable, without status migrainosus (principal); Z79.899 Other long term (current) drug therapy; Z28.310 Unvaccinated for COVID-19
CPT/HCPCS: 99284

== ENCOUNTER 2022-02-13 08:55 | Emergency (ER) | payer MEDICARE, MEDICAID ==
[2022-02-13] MEDS ORDERED: KETOROLAC 60 MG/2 ML VIAL IM STA (09:03)
[2022-02-13] MEDS ORDERED: METOCLOPRAMIDE INJ 10 MG/2 ML (REGLAN) IM STA (09:03)
[2022-02-13] MEDS ORDERED: diphenhydrAMINE 50 MG/ML INJ (BENADRYL) IM STA (09:03)
--- NOTE | 2022-02-13 09:10 | ED Headache ---
General Chief Complaint: Head/Cervical Problems Stated Complaint: HEADACHE Source: patient History of Present Illness Date Seen by Provider: Feb 13, 2022 Time Seen by Provider: 09:02 Initial Comments 41-year-old female presenting with complaints of recurrent migraine headache. She states this started around 230 this morning and feels similar to her prior migraines. She has pain mostly in the front of her forehead. She has had nausea but no vomiting. She denies having any head trauma, fever, chills, sinus congestion, cough, burning with urination. She has already tried her regular medicines at home and was still having pain so she came to the emergency department. She states usually if he gets like this she needs a "cocktail" of medicines that they give her shots. Timing/Duration: 4-6 hours Severity/Quality: severe, pressure Location: frontal Prior Headaches/Recent Trauma: no recent headache/trauma, chronic headaches Modifying Factors: worse with exposure to light Associated Symptoms: No confusion, No fatigue, No facial pain, No fever/chills, No flushing, No loss of consciousness; nausea/vomiting (Nausea but no vomiting); No nasal congestion, No nasal drainage, No numbness in legs/feet, No rash, No seizures, No sinus infection, No stiff neck, No vision changes, No weakness Allergies and Home Medications Allergies Coded Allergies: zolmitriptan (Verified Adverse Reaction, Unknown, 09/29/19) Patient Home Medication List Home Medication List Reviewed: Yes Aspirin/Acetaminophen/Caffeine (Excedrin Migraine Caplet) 1 Each Tablet, 2 EACH PO Q6-8HR PRN for Headache, (Reported) Entered as Reported by: NATE ZHU on 07/01/20 0950 Cetirizine HCl (Cetirizine HCl) 10 Mg Tablet, 10 MG PO HS, (Reported) Entered as Reported by: DIXIE BROWN on 07/21/19 1516 Citalopram Hydrobromide (Citalopram HBr) 40 Mg Tablet, 40 MG PO HS, (Reported) Entered as Reported by: MALINDA KOCH on 04/02/19 0947 Ergocalciferol (Vitamin D2) (Vitamin D2) 1,250 Mcg Capsule, 1,250 MCG PO WEEK, (Reported) Entered as Reported by: NATE ZHU on 07/01/20 0950 Ferrous Sulfate (Ferrous Sulfate) 325 Mg Tablet, 325 MG PO DAILY, (Reported) Entered as Reported by: DIXIE BROWN on 07/21/19 1516 Hydrocodone Bit/Acetaminophen (HYDROcodone/APAP 5 MG/325 MG TAB) 1 Tab Tab, 1 TAB PO Q4H PRN for PAIN-MODERATE (5-7) Prescribed by: OWEN VARELA on 07/13/20 1050 Levothyroxine Sodium (Levothyroxine Sodium) 88 Mcg Tablet, 88 MCG PO DAILY, (Reported) Entered as Reported by: DIXIE BROWN on 07/21/19 1516 Montelukast Sodium (Montelukast Sodium) 10 Mg Tablet, 10 MG PO HS, (Reported) Entered as Reported by: MALINDA KOCH on 04/02/19 0947 Ondansetron (Ondansetron Odt) 8 Mg Tab.rapdis, 8 MG PO Q8H PRN for NAUSEA/VOMITING-1ST LINE, (Reported) Entered as Reported by: NATE ZHU on 07/01/20 0950 Ondansetron (Ondansetron Odt) 4 Mg Tab.rapdis, 4 MG PO Q6H Prescribed by: DARCI ECHOLS on 11/22/21 1037 Pantoprazole Sodium (Protonix) 40 Mg Tablet.dr, 40 MG PO BID Prescribed by: OWEN VARELA on 07/13/20 1049 Potassium Chloride (Klor-Con 10) 10 Meq Tablet.er, 10 MEQ PO DAILY, (Reported) Entered as Reported by: NATE ZHU on 07/01/20 0950 Propranolol HCl (Propranolol HCl) 20 Mg Tablet, 20 MG PO BID, (Reported) Entered as Reported by: DIXIE BROWN on 07/21/19 1516 Sucralfate (Sucralfate) 1 Gm Tablet, 1 GM PO DAILY, (Reported) Entered as Reported by: MALINDA KOCH on 06/16/20 1014 Topiramate (Topiramate) 100 Mg Tablet, 100 MG PO TID, (Reported) Entered as Reported by: MALINDA KOCH on 04/02/19 0947 Review of Systems Review of Systems Constitutional: No chills, No dizziness, No fever Eyes: Photophobia Ears, Nose, Mouth, Throat: no symptoms reported Respiratory: no symptoms reported Cardiovascular: no symptoms reported Gastrointestinal: see HPI Genitourinary: no symptoms reported Musculoskeletal: no symptoms reported Skin: no symptoms reported Psychiatric/Neurological: Headache Past Wdgaqsn-Yssxbg-Lltelr Hx Patient Social History Tobacco Use?: Yes Substance use?: No Alcohol Use?: No Pt feels they are or have been: No Immunizations Up To Date First/Initial COVID19 Vaccinat: denies Second COVID19 Vaccination Allen: denies Third COVID19 Vaccination Date: denies Seasonal Allergies Seasonal Allergies: Yes Past Medical History Surgery/Hospitalization HX: Migraine headaches Surgeries: Yes Gallbladder Respiratory: No Currently Using CPAP: No Currently Using BIPAP: No Cardiac: No Neurological: Yes Headaches /Migraines Genitourinary: No Gastrointestinal: Yes (chronic gastritis, pyloric stenosis) Musculoskeletal: No Endocrine: Yes Hypothyroidsim HEENT: No Cancer: No Psychosocial: Yes Depression Integumentary: No Blood Disorders: No Family Medical History Cancer, Diabetes Physical Exam Vital Signs Vital Signs - First Documented 02/13/22 09:00 Temp 36.0 Pulse 74 Resp 16 B/P (MAP) 123/87 (99) Pulse Ox 96 O2 Delivery Room Air Capillary Refill : Height, Weight, BMI Height: 5'3.00" Weight: 160lbs. 0oz. 72.639550pl; 30.00 BMI Method:Stated General Appearance: WD/WN, no apparent distress HEENT: PERRL/EOMI, normal ENT inspection, pharynx normal Neck: non-tender, full range of motion, supple, normal inspection Cardiovascular: normal peripheral pulses, regular rate, rhythm Respiratory: chest non-tender, lungs clear, normal breath sounds, no respiratory distress, no accessory muscle use Gastrointestinal: normal bowel sounds, non tender, soft, no pulsatile mass Extremities: normal range of motion, non-tender, no pedal edema, no calf tenderness, normal capillary refill Psychiatric: alert, oriented x 3 Crainal Nerves: normal hearing, normal speech, PERRL Coordination/Gait: normal gait Motor/Sensory: no motor deficit, no sensory deficit Skin: normal color, warm/dry Progress/Results/Core Measures Results/Orders My Orders Orders - MIGUELITO GUZMÁN MD Ketorolac Injection (Toradol Injection) (02/13/22 09:03) Metoclopramide Injection (Reglan Injecti (02/13/22 09:03) Diphenhydramine Injection (Benadryl Inje (02/13/22 09:03) Vital Signs/I&O 02/13/22 02/13/22 09:00 09:29 Temp 36.0 36.0 Pulse 74 74 Resp 16 16 B/P (MAP) 123/87 (99) 123/87 Pulse Ox 96 96 O2 Delivery Room Air Room Air Progress Progress Note : Progress Note Since she reports this feels like her typical migraine headache and has already tried medicines at home will administer a cocktail of medicines that have helped her in the past. This includes Toradol 60 mg IM, Benadryl 25 mg IM, Reglan 10 mg IM. Encouraged to rest in a cool dark room at home. Counseled to stay well- hydrated. Advised to follow-up with primary provider if having continued concerns Departure Impression Primary Impression: Migraine headache without aura Qualified Codes: G43.009 - Migraine without aura, not intractable, without status migrainosus Disposition: 01 HOME, SELF-CARE Condition: Stable Departure-Patient Inst. Decision time for Depature: 09:10 Referrals: ANDREW DONAHUE MD (PCP) Primary Care Physician Patient Instructions: Migraines (DC) Add. Discharge Instructions: Stay well-hydrated and drink plenty of fluids. Rest in a cool dark room. Follow-up with your primary provider for continued concerns All discharge instructions reviewed with patient and/or family. Voiced understanding. MIGUELITO GUZMÁN MD Feb 13, 2022 09:10
[2022-02-13 09:29] VITALS: BP 123/87
[2022-02-13] MEDS ORDERED: ONDA4TAB11 PO (13:57)
== END 2022-02-13 09:28 | disposition home or self-care (01) ==
LOC: EDUNIT# 08:55 → ER FS 08:56
DX: G43.009 Migraine without aura, not intractable, without status migrainosus (principal); Z28.310 Unvaccinated for COVID-19
CPT/HCPCS: 99284

== ENCOUNTER 2022-02-13 13:39 | Emergency (ER) | payer MEDICARE, MEDICAID ==
[2022-02-13] MEDS ORDERED: diphenhydrAMINE 50 MG/ML INJ (BENADRYL) IM STA (13:50)
[2022-02-13] MEDS ORDERED: METOCLOPRAMIDE INJ 10 MG/2 ML (REGLAN) IM STA (13:50)
[2022-02-13] MEDS ORDERED: KETOROLAC 60 MG/2 ML VIAL IM STA (13:50)
[2022-02-13] MEDS ORDERED: ONDA4TAB11 PO (13:57)
--- NOTE | 2022-02-13 13:57 | ED Headache ---
General Chief Complaint: Head/Cervical Problems Stated Complaint: DIZZINESS; NAUSEA; ORELLANA Source: patient History of Present Illness Date Seen by Provider: Feb 13, 2022 Time Seen by Provider: 13:42 Initial Comments 41-year-old female presenting with recurrent migraine headache. She was seen earlier this morning for the same complaints from a headache that started 230 this morning. She states that after she got home she tried to rest because she felt more relaxed from the medications but then she started feeling dizzy and nauseated as well as had some loose stool. She feels like she is anxious and worried about her headache. She also reports that she has seasonal allergies that are flared up. She continues to deny fever, chills, neck pain, chest pain, cough, abdominal pain, pain with urination. Timing/Duration: other (Since 230 this morning) Severity/Quality: severe, pressure, throbbing Location: frontal Prior Headaches/Recent Trauma: frequent headaches, chronic headaches Modifying Factors: worse with exposure to light Associated Symptoms: No confusion; fatigue, facial pain (Frontal sinus area); No fever/chills, No flushing, No loss of consciousness; nausea/vomiting; No nasal congestion, No nasal drainage, No numbness in legs/feet, No rash, No seizures, No sinus infection, No stiff neck, No vision changes, No weakness Allergies and Home Medications Allergies Coded Allergies: zolmitriptan (Verified Adverse Reaction, Unknown, 09/29/19) Patient Home Medication List Home Medication List Reviewed: Yes Aspirin/Acetaminophen/Caffeine (Excedrin Migraine Caplet) 1 Each Tablet, 2 EACH PO Q6-8HR PRN for Headache, (Reported) Entered as Reported by: NATE ZHU on 07/01/20 0950 Cetirizine HCl (Cetirizine HCl) 10 Mg Tablet, 10 MG PO HS, (Reported) Entered as Reported by: DIXIE BROWN on 07/21/19 1516 Citalopram Hydrobromide (Citalopram HBr) 40 Mg Tablet, 40 MG PO HS, (Reported) Entered as Reported by: MALINDA KOCH on 04/02/19 0947 Ergocalciferol (Vitamin D2) (Vitamin D2) 1,250 Mcg Capsule, 1,250 MCG PO WEEK, (Reported) Entered as Reported by: NATE ZHU on 07/01/20 0950 Ferrous Sulfate (Ferrous Sulfate) 325 Mg Tablet, 325 MG PO DAILY, (Reported) Entered as Reported by: DIXIE BROWN on 07/21/19 1516 Hydrocodone Bit/Acetaminophen (HYDROcodone/APAP 5 MG/325 MG TAB) 1 Tab Tab, 1 TAB PO Q4H PRN for PAIN-MODERATE (5-7) Prescribed by: OWEN VARELA on 07/13/20 1050 Levothyroxine Sodium (Levothyroxine Sodium) 88 Mcg Tablet, 88 MCG PO DAILY, (Reported) Entered as Reported by: DIXIE BROWN on 07/21/19 1516 Montelukast Sodium (Montelukast Sodium) 10 Mg Tablet, 10 MG PO HS, (Reported) Entered as Reported by: MALINDA KOCH on 04/02/19 0947 Ondansetron (Ondansetron Odt) 8 Mg Tab.rapdis, 8 MG PO Q8H PRN for NAUSEA/VOMITING-1ST LINE, (Reported) Entered as Reported by: NATE ZHU on 07/01/20 0950 Ondansetron (Ondansetron Odt) 4 Mg Tab.rapdis, 4 MG PO Q6H Prescribed by: DARCI ECHOLS on 11/22/21 1037 Ondansetron (Ondansetron Odt) 4 Mg Tab.rapdis, 4 MG PO Q6H PRN for NAUSEA/VOMITING Prescribed by: MIGUELITO GUZMÁN on 02/13/22 1357 Pantoprazole Sodium (Protonix) 40 Mg Tablet.dr, 40 MG PO BID Prescribed by: OWEN VARELA on 07/13/20 1049 Potassium Chloride (Klor-Con 10) 10 Meq Tablet.er, 10 MEQ PO DAILY, (Reported) Entered as Reported by: NATE ZHU on 07/01/20 0950 Propranolol HCl (Propranolol HCl) 20 Mg Tablet, 20 MG PO BID, (Reported) Entered as Reported by: DIXIE BROWN on 07/21/19 1516 Sucralfate (Sucralfate) 1 Gm Tablet, 1 GM PO DAILY, (Reported) Entered as Reported by: MALINDA KOCH on 06/16/20 1014 Topiramate (Topiramate) 100 Mg Tablet, 100 MG PO TID, (Reported) Entered as Reported by: MALINDA KOCH on 04/02/19 0947 Review of Systems Review of Systems Constitutional: No chills; dizziness; No fever Eyes: Photophobia Ears, Nose, Mouth, Throat: denies ear pain, denies ear discharge, denies nose pain, denies nose discharge, denies epistaxis Respiratory: No cough, No short of breath Cardiovascular: no symptoms reported Gastrointestinal: see HPI Genitourinary: no symptoms reported Musculoskeletal: no symptoms reported Skin: No rash Psychiatric/Neurological: Anxiety, Headache Past Rhhwvgb-Crebrm-Kilxsk Hx Immunizations Up To Date First/Initial COVID19 Vaccinat: denies Second COVID19 Vaccination Allen: denies Third COVID19 Vaccination Date: denies Seasonal Allergies Seasonal Allergies: Yes Past Medical History Surgery/Hospitalization HX: Migraine headaches Surgeries: Yes Gallbladder Respiratory: No Currently Using CPAP: No Currently Using BIPAP: No Cardiac: No Neurological: Yes Headaches /Migraines Genitourinary: No Gastrointestinal: Yes (chronic gastritis, pyloric stenosis) Musculoskeletal: No Endocrine: Yes Hypothyroidsim HEENT: No Cancer: No Psychosocial: Yes Depression Integumentary: No Blood Disorders: No Family Medical History Cancer, Diabetes Physical Exam Vital Signs Vital Signs - First Documented 02/13/22 13:46 Temp 36.1 Pulse 85 Resp 16 B/P (MAP) 124/88 (100) Pulse Ox 96 O2 Delivery Room Air Capillary Refill : Height, Weight, BMI Height: 5'3.00" Weight: 160lbs. 0oz. 72.617683sg; 30.00 BMI Method:Stated General Appearance: no apparent distress HEENT: PERRL/EOMI, normal ENT inspection, TMs normal, pharynx normal, photophobia, other (Cerumen in bilateral canals right more than left) Neck: non-tender, full range of motion, supple, normal inspection Cardiovascular: normal peripheral pulses, regular rate, rhythm Respiratory: chest non-tender, lungs clear, normal breath sounds, no respiratory distress, no accessory muscle use Gastrointestinal: normal bowel sounds, non tender, soft, no pulsatile mass Back: no CVA tenderness Extremities: normal range of motion, non-tender, normal capillary refill Psychiatric: alert, oriented x 3 Crainal Nerves: normal hearing, normal speech, PERRL Coordination/Gait: normal gait Motor/Sensory: no motor deficit, no sensory deficit Skin: normal color, warm/dry; No rash Progress/Results/Core Measures Results/Orders My Orders Orders - MIGUELITO GUZMÁN MD Ketorolac Injection (Toradol Injection) (02/13/22 13:50) Diphenhydramine Injection (Benadryl Inje (02/13/22 13:50) Metoclopramide Injection (Reglan Injecti (02/13/22 13:50) Dexamethasone Injection (Decadron Inje (02/13/22 13:50) Vital Signs/I&O 02/13/22 02/13/22 13:46 14:13 Temp 36.1 36.1 Pulse 85 85 Resp 16 16 B/P (MAP) 124/88 (100) 124/88 Pulse Ox 96 96 O2 Delivery Room Air Room Air Progress Progress Note : Progress Note Since it has been over 5 hours since her last visit we will try repeating the medications for migraine cocktail of Toradol, Benadryl, Reglan. We will also give a dose of dexamethasone 10 mg IM for possible allergy and sinus component to contribute to her dizziness. Encouraged to rest in her cool dark room. Continue with home medications. Departure Impression Primary Impression: Migraine headache without aura Qualified Codes: G43.009 - Migraine without aura, not intractable, without status migrainosus Additional Impression: Dizziness Disposition: 01 HOME, SELF-CARE Condition: Stable Departure-Patient Inst. Decision time for Depature: 13:56 Referrals: ANDREW DONAHUE MD (PCP) Primary Care Physician Patient Instructions: Dizziness, Adult ED, How to Keep Track of Your Headaches, Home Headache Remedies Add. Discharge Instructions: Stay well hydrated and drink plenty of water. Rest in a cool dark room. Continue with home medicines for continued care of your symptoms. Check with clinic for continued concerns All discharge instructions reviewed with patient and/or family. Voiced understanding. Scripts Ondansetron (Ondansetron Odt) 4 Mg Tab.rapdis 4 MG PO Q6H PRN for NAUSEA/VOMITING for 3 Days, #12 TAB 0 Refills Prov: MIGUELITO GUZMÁN MD 02/13/22 MIGUELITO GUZMÁN MD Feb 13, 2022 13:57
[2022-02-13 14:13] VITALS: BP 124/88
== END 2022-02-13 14:13 | disposition home or self-care (01) ==
LOC: EDUNIT# 13:39 → ER FS 13:41
DX: G43.009 Migraine without aura, not intractable, without status migrainosus (principal); Z28.310 Unvaccinated for COVID-19
CPT/HCPCS: 99284

== ENCOUNTER 2022-03-08 09:34 | Emergency (ER) | payer MEDICARE, MEDICAID ==
[~2022-03-08] VITALS: Ht 160 cm; Wt 107.0 kg
[2022-03-08 09:41] VITALS: BP 105/57
--- NOTE | 2022-03-08 10:02 | ED Integumentary General ---
General Chief Complaint: Skin/Wound Problems Stated Complaint: ABD WOUND Source: patient Exam Limitations: no limitations History of Present Illness Date Seen by Provider: Mar 08, 2022 Time Seen by Provider: 09:57 Initial Comments Patient is a 42-year-old female who presents with Victorina infection under her abdominal pannus. Patient noticed bleeding today under her pannus. She denies other symptoms or complaints. Timing/Duration: this afternoon Location: torso Possible Cause: other Modifying Factors: improves with other Associated Symptoms: other Allergies and Home Medications Allergies Coded Allergies: zolmitriptan (Verified Adverse Reaction, Unknown, 09/29/19) Patient Home Medication List Home Medication List Reviewed: Yes Aspirin/Acetaminophen/Caffeine (Excedrin Migraine Caplet) 1 Each Tablet, 2 EACH PO Q6-8HR PRN for Headache, (Reported) Entered as Reported by: NATE ZHU on 07/01/20 0950 Cetirizine HCl (Cetirizine HCl) 10 Mg Tablet, 10 MG PO HS, (Reported) Entered as Reported by: DIXIE BROWN on 07/21/19 1516 Citalopram Hydrobromide (Citalopram HBr) 40 Mg Tablet, 40 MG PO HS, (Reported) Entered as Reported by: MALINDA KOCH on 04/02/19 0947 Ergocalciferol (Vitamin D2) (Vitamin D2) 1,250 Mcg Capsule, 1,250 MCG PO WEEK, (Reported) Entered as Reported by: NATE ZHU on 07/01/20 0950 Ferrous Sulfate (Ferrous Sulfate) 325 Mg Tablet, 325 MG PO DAILY, (Reported) Entered as Reported by: DIXIE BROWN on 07/21/19 1516 Hydrocodone Bit/Acetaminophen (HYDROcodone/APAP 5 MG/325 MG TAB) 1 Tab Tab, 1 TAB PO Q4H PRN for PAIN-MODERATE (5-7) Prescribed by: OWEN VARELA on 07/13/20 1050 Levothyroxine Sodium (Levothyroxine Sodium) 88 Mcg Tablet, 88 MCG PO DAILY, (Reported) Entered as Reported by: DIXIE BROWN on 07/21/19 1516 Montelukast Sodium (Montelukast Sodium) 10 Mg Tablet, 10 MG PO HS, (Reported) Entered as Reported by: MALINDA KOCH on 04/02/19 0947 Ondansetron (Ondansetron Odt) 8 Mg Tab.rapdis, 8 MG PO Q8H PRN for NAUSEA/VOMITING-1ST LINE, (Reported) Entered as Reported by: NATE ZHU on 07/01/20 0950 Ondansetron (Ondansetron Odt) 4 Mg Tab.rapdis, 4 MG PO Q6H Prescribed by: DARCI ECHOLS on 11/22/21 1037 Ondansetron (Ondansetron Odt) 4 Mg Tab.rapdis, 4 MG PO Q6H PRN for NAUSEA/VOMITING Prescribed by: MIGUELITO GUZMÁN on 02/13/22 1357 Pantoprazole Sodium (Protonix) 40 Mg Tablet.dr, 40 MG PO BID Prescribed by: OWEN VARELA on 07/13/20 1049 Potassium Chloride (Klor-Con 10) 10 Meq Tablet.er, 10 MEQ PO DAILY, (Reported) Entered as Reported by: NATE ZHU on 07/01/20 0950 Propranolol HCl (Propranolol HCl) 20 Mg Tablet, 20 MG PO BID, (Reported) Entered as Reported by: DIXIE BROWN on 07/21/19 1516 Sucralfate (Sucralfate) 1 Gm Tablet, 1 GM PO DAILY, (Reported) Entered as Reported by: MALINDA KOCH on 06/16/20 1014 Topiramate (Topiramate) 100 Mg Tablet, 100 MG PO TID, (Reported) Entered as Reported by: MALINDA KOCH on 04/02/19 0947 Review of Systems Review of Systems Constitutional: see HPI EENTM: see HPI Respiratory: see HPI Cardiovascular: see HPI Gastrointestinal: see HPI Genitourinary: see HPI Musculoskeletal: see HPI Skin: see HPI Psychiatric/Neurological: See HPI Endocrine: See HPI Hematologic/Lymphatic: See HPI All Other Systems Reviewed Negative Unless Noted: No Past Cwqibch-Nslmbo-Umbhqf Hx Patient Social History Tobacco Use?: No Use of E-Cig and/or Vaping dev: No Substance use?: No Alcohol Use?: No Pt feels they are or have been: No Immunizations Up To Date First/Initial COVID19 Vaccinat: denies Second COVID19 Vaccination Allen: denies Third COVID19 Vaccination Date: denies Seasonal Allergies Seasonal Allergies: Yes Past Medical History Surgery/Hospitalization HX: Migraine headaches Surgeries: Yes Gallbladder Respiratory: No Currently Using CPAP: No Currently Using BIPAP: No Cardiac: No Neurological: Yes Headaches /Migraines Genitourinary: No Gastrointestinal: Yes (chronic gastritis, pyloric stenosis) Musculoskeletal: No Endocrine: Yes Hypothyroidsim HEENT: No Cancer: No Psychosocial: Yes Depression Integumentary: No Blood Disorders: No Family Medical History Cancer, Diabetes Physical Exam Vital Signs Capillary Refill : General Appearance: WD/WN, no apparent distress Cardiovascular: normal peripheral pulses, regular rate, rhythm Gastrointestinal: soft, other Skin: other (Candidal infection under pannus with 3 reagions of skin breakdown without active bleeding. no orange peel skin of diffuse cellutlitis) Departure Communication (Admissions) Candidal skin infection with early cellulitis. Recommendations are supportive care and PCP follow-up. Impression Primary Impression: Candidal skin infection Additional Impression: Panniculitis Disposition: HOME, SELF-CARE Condition: Stable Departure-Patient Inst. Decision time for Depature: 10:09 Referrals: ANDRWE DONAHUE MD (PCP) Primary Care Physician Patient Instructions: Cellulitis (Skin Infection), Child (DC), Wound Care (DC) Add. Discharge Instructions: You were evaluated in the ED for skin breakdown and a yeast infection. Please keep are clean and dry. Follow up with your PCP in 2-3 days for re-evaluation. All discharge instructions reviewed with patient and/or family. Voiced understanding. Scripts Hydrocodone/Acetaminophen (Hydrocodone-Acetamin 5-325 mg) 5 Mg-325 Mg Tablet 1 TAB PO Q4H PRN for PAIN-MODERATE (5-7), #10 TAB Prov: DARCI ECHOLS DO 03/08/22 Clindamycin HCl (Clindamycin HCl) 300 Mg Capsule 300 MG PO TID, #21 CAP Prov: DARCI ECHOLS DO 03/08/22 Fluconazole (Diflucan) 100 Mg Tablet 100 MG PO DAILY, #5 TAB Prov: DARCI ECHOLS DO 03/08/22 DARCI ECHOLS DO Mar 08, 2022 10:02
[2022-03-08] MEDS ORDERED: FLUC100T PO (10:14)
[2022-03-08] MEDS ORDERED: CLIN-144 PO (10:14)
[2022-03-08] MEDS ORDERED: ACHD5005 PO (10:14)
== END 2022-03-08 10:26 | disposition home or self-care (01) ==
LOC: EDUNIT# 09:34 → ER FS 09:36
DX: B37.2 Candidiasis of skin and nail (principal); M79.3 Panniculitis, unspecified; Z28.310 Unvaccinated for COVID-19
CPT/HCPCS: 99281

== ENCOUNTER 2022-03-10 08:39 | Emergency (ER) | payer MEDICARE, MEDICAID ==
[~2022-03-10] VITALS: Ht 160 cm; Wt 107.2 kg
[~2022-03-10 08:39] MED LIST changes: +CLIN-144 PO; +FLUC100T PO
[2022-03-10 09:21] VITALS: BP 104/75
--- NOTE | 2022-03-10 09:29 | ED Headache ---
General Chief Complaint: Head/Cervical Problems Stated Complaint: HEADACHE Source: patient Exam Limitations: no limitations History of Present Illness Date Seen by Provider: Mar 10, 2022 Time Seen by Provider: 09:49 Initial Comments 42-year-old female with past medical history of chronic headaches coming in due to headache. This 1 started roughly 7 hours ago. It was slow in onset, it is in the front of her head, throbbing, worsening over time. She tried her at home abortive medications which did not help. She does see a specialist for this and has been doing well for the past couple months, but prior to that had them quite regularly. She says it feels just like her typical headaches. Denies any neck stiffness, fever, weakness, numbness, vision changes, or any other concerns. Allergies and Home Medications Allergies Coded Allergies: zolmitriptan (Verified Adverse Reaction, Unknown, 09/29/19) Patient Home Medication List Home Medication List Reviewed: Yes Aspirin/Acetaminophen/Caffeine (Excedrin Migraine Caplet) 1 Each Tablet, 2 EACH PO Q6-8HR PRN for Headache, (Reported) Entered as Reported by: NATE ZHU on 07/01/20 0950 Cetirizine HCl (Cetirizine HCl) 10 Mg Tablet, 10 MG PO HS, (Reported) Entered as Reported by: DIXIE BROWN on 07/21/19 1516 Citalopram Hydrobromide (Citalopram HBr) 40 Mg Tablet, 40 MG PO HS, (Reported) Entered as Reported by: MALINDA KOCH on 04/02/19 0947 Clindamycin HCl (Clindamycin HCl) 300 Mg Capsule, 300 MG PO TID Prescribed by: DARCI ECHOLS on 03/08/22 1014 Ergocalciferol (Vitamin D2) (Vitamin D2) 1,250 Mcg Capsule, 1,250 MCG PO WEEK, (Reported) Entered as Reported by: NATE ZHU on 07/01/20 0950 Ferrous Sulfate (Ferrous Sulfate) 325 Mg Tablet, 325 MG PO DAILY, (Reported) Entered as Reported by: DIXIE BROWN on 07/21/19 1516 Fluconazole (Diflucan) 100 Mg Tablet, 100 MG PO DAILY Prescribed by: DARCI ECHOLS on 03/08/22 1014 Hydrocodone Bit/Acetaminophen (HYDROcodone/APAP 5 MG/325 MG TAB) 1 Tab Tab, 1 TAB PO Q4H PRN for PAIN-MODERATE (5-7) Prescribed by: OWEN VARELA on 07/13/20 1050 Hydrocodone/Acetaminophen (Hydrocodone-Acetamin 5-325 mg) 5 Mg-325 Mg Tablet, 1 TAB PO Q4H PRN for PAIN-MODERATE (5-7) Prescribed by: DARCI ECHOLS on 03/08/22 1015 Levothyroxine Sodium (Levothyroxine Sodium) 88 Mcg Tablet, 88 MCG PO DAILY, (Reported) Entered as Reported by: DIXIE BROWN on 07/21/19 1516 Montelukast Sodium (Montelukast Sodium) 10 Mg Tablet, 10 MG PO HS, (Reported) Entered as Reported by: MALINDA KOCH on 04/02/19 0947 Ondansetron (Ondansetron Odt) 8 Mg Tab.rapdis, 8 MG PO Q8H PRN for NAUSEA/VOMITING-1ST LINE, (Reported) Entered as Reported by: NATE ZHU on 07/01/20 0950 Ondansetron (Ondansetron Odt) 4 Mg Tab.rapdis, 4 MG PO Q6H Prescribed by: DARCI ECOHLS on 11/22/21 1037 Ondansetron (Ondansetron Odt) 4 Mg Tab.rapdis, 4 MG PO Q6H PRN for NAUSEA/VOMITING Prescribed by: MIGUELITO GUZMÁN on 02/13/22 1357 Pantoprazole Sodium (Protonix) 40 Mg Tablet.dr, 40 MG PO BID Prescribed by: OWEN VARELA on 07/13/20 1049 Potassium Chloride (Klor-Con 10) 10 Meq Tablet.er, 10 MEQ PO DAILY, (Reported) Entered as Reported by: NATE ZHU on 07/01/20 0950 Propranolol HCl (Propranolol HCl) 20 Mg Tablet, 20 MG PO BID, (Reported) Entered as Reported by: DIXIE BROWN on 07/21/19 1516 Sucralfate (Sucralfate) 1 Gm Tablet, 1 GM PO DAILY, (Reported) Entered as Reported by: MALINDA KOCH on 06/16/20 1014 Topiramate (Topiramate) 100 Mg Tablet, 100 MG PO TID, (Reported) Entered as Reported by: MALINDA KOCH on 04/02/19 0947 Review of Systems Review of Systems Constitutional: No fever Eyes: Denies Blurred Vision Ears, Nose, Mouth, Throat: no symptoms reported Respiratory: no symptoms reported Cardiovascular: no symptoms reported Gastrointestinal: no symptoms reported Musculoskeletal: no symptoms reported Skin: no symptoms reported Psychiatric/Neurological: Headache All Other Systems Reviewed Negative Unless Noted: Yes Past Mcqraow-Dcnhkv-Srpqph Hx Patient Social History Substance use?: No Immunizations Up To Date First/Initial COVID19 Vaccinat: denies Second COVID19 Vaccination Allen: denies Third COVID19 Vaccination Date: denies Seasonal Allergies Seasonal Allergies: Yes Past Medical History Surgery/Hospitalization HX: Migraine headaches Surgeries: Yes Gallbladder Respiratory: No Currently Using CPAP: No Currently Using BIPAP: No Cardiac: No Neurological: Yes Headaches /Migraines Genitourinary: No Gastrointestinal: Yes (chronic gastritis, pyloric stenosis) Musculoskeletal: No Endocrine: Yes Hypothyroidsim HEENT: No Cancer: No Psychosocial: Yes Depression Integumentary: No Blood Disorders: No Family Medical History Cancer, Diabetes Physical Exam Vital Signs Capillary Refill : Height, Weight, BMI Height: 5'3.00" Weight: 160lbs. 0oz. [id number]; 41.00 BMI Method:Stated General Appearance: WD/WN, no apparent distress HEENT: PERRL/EOMI, normal ENT inspection, pharynx normal, other (Normal visual acuity and visual mascorro) Neck: non-tender, full range of motion, supple, normal inspection, other (No meningismus) Cardiovascular: regular rate, rhythm, no edema, no murmur Respiratory: chest non-tender, lungs clear, normal breath sounds, no respi ratory distress, no accessory muscle use Gastrointestinal: normal bowel sounds, non tender, soft; No distended, No guarding, No rebound Back: normal inspection Extremities: normal range of motion, non-tender, normal inspection, no pedal edema, no calf tenderness, normal capillary refill Psychiatric: alert, oriented x 3 Crainal Nerves: normal hearing, normal speech, PERRL Coordination/Gait: normal finger to nose, normal gait Motor/Sensory: no motor deficit, no sensory deficit Skin: normal color, warm/dry Lymphatic: no adenopathy Progress/Results/Core Measures Results/Orders My Orders Orders - TAZ GONZALEZ MD Ketorolac Injection (Toradol Injection) (03/10/22 09:30) Prochlorperazine Injection (Compazine In (03/10/22 09:30) Diphenhydramine Injection (Benadryl Inje (03/10/22 09:30) Progress Progress Note : Progress Note 42-year-old female with above history coming in for what she states is her typical migraine headache. ABCs were intact and vitals were stable on pre sentation. Physical exam reassuring including a nonfocal neuro exam. She was given IM Toradol, Compazine, Benadryl. Discharged home in stable condition with strict return precautions Departure Impression Primary Impression: Migraine headache without aura Qualified Codes: G43.009 - Migraine without aura, not intractable, without status migrainosus Disposition: 01 HOME, SELF-CARE Condition: Stable Departure-Patient Inst. Decision time for Depature: 09:28 Referrals: ANDREW DONAHUE MD (PCP) Primary Care Physician Patient Instructions: Migraines (DC) Add. Discharge Instructions: Please follow-up with your specialist as you stated. Please call your regular doctor if things are not improving. Work/School Note: Work Release Form Date Seen in the Emergency Department: Mar 10, 2022 Return to Work: Mar 11, 2022 Restrictions: No Restrictions TAZ GONZALEZ MD Mar 10, 2022 09:29
[2022-03-10] MEDS ORDERED: diphenhydrAMINE 50 MG/ML INJ (BENADRYL) IM ONE (09:30)
[2022-03-10] MEDS ORDERED: PROCHLORPERAZINE 10 MG/2ML INJ (COMPAZINE) IM ONE (09:30)
[2022-03-10] MEDS ORDERED: KETOROLAC 30 MG/ML VIAL IM ONE (09:30)
== END 2022-03-10 09:37 | disposition home or self-care (01) ==
LOC: EDUNIT# 08:39 → ER FS 08:40
DX: G43.009 Migraine without aura, not intractable, without status migrainosus (principal); Z28.310 Unvaccinated for COVID-19
CPT/HCPCS: 99284

== ENCOUNTER 2022-04-11 08:50 | Emergency (ER) | payer MEDICARE, MEDICAID ==
[~2022-04-11] VITALS: Ht 160 cm; Wt 107.9 kg
[2022-04-11 08:54] VITALS: BP 113/99
--- NOTE | 2022-04-11 09:01 | ED Headache ---
General Chief Complaint: Head/Cervical Problems Stated Complaint: ORELLANA; EAR PAIN History of Present Illness Date Seen by Provider: Apr 11, 2022 Time Seen by Provider: 09:00 Initial Comments 42-year-old female presents with a headache, some nausea, dizziness. Patient has a history of migraines and reports that this is typical to her normal migraine. She recently saw her migraine specialist and they switched her medicine. She reports that she took one of her new medications this morning but it did not really help. Patient also complains of some right ear pain for the last couple days and is requesting it to be looked at. She denies any fever, chills, cough, vomiting or diarrhea. She reports that her headache started around 430 this morning and that Awoke her from the sleep which is typical. Allergies and Home Medications Allergies Coded Allergies: zolmitriptan (Verified Adverse Reaction, Unknown, 09/29/19) Patient Home Medication List Home Medication List Reviewed: Yes Aspirin/Acetaminophen/Caffeine (Excedrin Migraine Caplet) 1 Each Tablet, 2 EACH PO Q6-8HR PRN for Headache, (Reported) Entered as Reported by: NATE ZHU on 07/01/20 0950 Cetirizine HCl (Cetirizine HCl) 10 Mg Tablet, 10 MG PO HS, (Reported) Entered as Reported by: DIXIE BROWN on 07/21/19 1516 Citalopram Hydrobromide (Citalopram HBr) 40 Mg Tablet, 40 MG PO HS, (Reported) Entered as Reported by: MALINDA KOCH on 04/02/19 0947 Clindamycin HCl (Clindamycin HCl) 300 Mg Capsule, 300 MG PO TID Prescribed by: DARCI ECHOLS on 03/08/22 1014 Ergocalciferol (Vitamin D2) (Vitamin D2) 1,250 Mcg Capsule, 1,250 MCG PO WEEK, (Reported) Entered as Reported by: NATE ZHU on 07/01/20 0950 Ferrous Sulfate (Ferrous Sulfate) 325 Mg Tablet, 325 MG PO DAILY, (Reported) Entered as Reported by: DIXIE BROWN on 07/21/19 1516 Fluconazole (Diflucan) 100 Mg Tablet, 100 MG PO DAILY Prescribed by: DARCI ECHOLS on 03/08/22 1014 Hydrocodone Bit/Acetaminophen (HYDROcodone/APAP 5 MG/325 MG TAB) 1 Tab Tab, 1 TAB PO Q4H PRN for PAIN-MODERATE (5-7) Prescribed by: OWEN VARELA on 07/13/20 1050 Hydrocodone/Acetaminophen (Hydrocodone-Acetamin 5-325 mg) 5 Mg-325 Mg Tablet, 1 TAB PO Q4H PRN for PAIN-MODERATE (5-7) Prescribed by: DARCI ECHOLS on 03/08/22 1015 Levothyroxine Sodium (Levothyroxine Sodium) 88 Mcg Tablet, 88 MCG PO DAILY, (Reported) Entered as Reported by: DIXIE BROWN on 07/21/19 1516 Montelukast Sodium (Montelukast Sodium) 10 Mg Tablet, 10 MG PO HS, (Reported) Entered as Reported by: MALINDA KOCH on 04/02/19 0947 Ondansetron (Ondansetron Odt) 8 Mg Tab.rapdis, 8 MG PO Q8H PRN for N AUSEA/VOMITING-1ST LINE, (Reported) Entered as Reported by: NATE ZHU on 07/01/20 0950 Ondansetron (Ondansetron Odt) 4 Mg Tab.rapdis, 4 MG PO Q6H Prescribed by: DARCI ECHOLS on 11/22/21 1037 Ondansetron (Ondansetron Odt) 4 Mg Tab.rapdis, 4 MG PO Q6H PRN for NAUSEA/VOMITING Prescribed by: MIGUELITO GUZMÁN on 02/13/22 1357 Pantoprazole Sodium (Protonix) 40 Mg Tablet.dr, 40 MG PO BID Prescribed by: OWEN VARELA on 07/13/20 1049 Potassium Chloride (Klor-Con 10) 10 Meq Tablet.er, 10 MEQ PO DAILY, (Reported) Entered as Reported by: NATE ZHU on 07/01/20 0950 Propranolol HCl (Propranolol HCl) 20 Mg Tablet, 20 MG PO BID, (Reported) Entered as Reported by: DIXIE BROWN on 07/21/19 1516 Sucralfate (Sucralfate) 1 Gm Tablet, 1 GM PO DAILY, (Reported) Entered as Reported by: MALINDA KOCH on 06/16/20 1014 Topiramate (Topiramate) 100 Mg Tablet, 100 MG PO TID, (Reported) Entered as Reported by: MALINDA KOCH on 04/02/19 0947 Review of Systems Review of Systems Constitutional: No chills; dizziness; No fever Eyes: No Symptoms Reported Ears, Nose, Mouth, Throat: ear pain Respiratory: no symptoms reported Cardiovascular: no symptoms reported Gastrointestinal: No abdominal pain, No diarrhea; nausea; No vomiting Genitourinary: no symptoms reported Musculoskeletal: no symptoms reported Psychiatric/Neurological: Headache Past Wafyivt-Agqczg-Pjmzur Hx Immunizations Up To Date First/Initial COVID19 Vaccinat: denies Second COVID19 Vaccination Allen: denies Third COVID19 Vaccination Date: denies Seasonal Allergies Seasonal Allergies: Yes Past Medical History Surgery/Hospitalization HX: Migraine headaches Surgeries: Yes Gallbladder Respiratory: No Currently Using CPAP: No Currently Using BIPAP: No Cardiac: No Neurological: Yes Headaches /Migraines Genitourinary: No Gastrointestinal: Yes (chronic gastritis, pyloric stenosis) Musculoskeletal: No Endocrine: Yes Hypothyroidsim HEENT: No Cancer: No Psychosocial: Yes Depression Integumentary: No Blood Disorders: No Family Medical History Cancer, Diabetes Physical Exam Vital Signs Vital Signs - First Documented 04/11/22 08:54 Temp 36.7 Pulse 79 Resp 18 B/P (MAP) 113/99 (104) Pulse Ox 97 O2 Delivery Room Air Capillary Refill : Height, Weight, BMI Height: 5'3.00" Weight: 160lbs. 0oz. 72.570301mq; 41.00 BMI Method:Stated General Appearance: WD/WN, no apparent distress HEENT: PERRL/EOMI, other (TM normal, there is moderate cerumen and right ear canal) Neck: supple, normal inspection Cardiovascular: normal peripheral pulses, regular rate, rhythm, no edema Respiratory: lungs clear, normal breath sounds Gastrointestinal: non tender, soft Extremities: non-tender, normal inspection Psychiatric: alert, oriented x 3 Crainal Nerves: normal hearing, normal speech, PERRL Coordination/Gait: normal gait Motor/Sensory: no motor deficit, no sensory deficit Progress/Results/Core Measures Results/Orders My Orders Orders - PAZ ANGELO DO Ketorolac Injection (Toradol Injection) (04/11/22 09:04) Metoclopramide Injection (Reglan Injecti (04/11/22 09:04) Diphenhydramine Injection (Benadryl Inje (04/11/22 09:04) Vital Signs/I&O 04/11/22 08:54 Temp 36.7 Pulse 79 Resp 18 B/P (MAP) 113/99 (104) Pulse Ox 97 O2 Delivery Room Air Progress Progress Note : Progress Note Patient treated for typical migraine and discharged home. Patient has some moderate cerumen in her right ear canal. I recommended she get some [id number] earwax removal and use as directed. Patient stable and discharged Departure Impression Primary Impression: Migraine headache without aura Qualified Codes: G43.009 - Migraine without aura, not intractable, without status migrainosus Additional Impression: Right ear pain Disposition: HOME, SELF-CARE Condition: Stable Departure-Patient Inst. Referrals: SELF,ANDREW BOLIVAR (PCP) Primary Care Physician Patient Instructions: Home Headache Remedies, Migraines (DC) Add. Discharge Instructions: Recommend you get [id number] earwax removal and follow directions. Follow-up with your primary care provider for recheck if symptoms do not improve over the next week with your right ear pain Follow-up with your headache specialist if you continue to get recurrent recurrent migraines over the next couple days. All discharge instructions reviewed with patient and/or family. Voiced understanding. PAZ ANGELO DO Apr 11, 2022 09:00
[2022-04-11] MEDS ORDERED: diphenhydrAMINE 50 MG/ML INJ (BENADRYL) IM STA (09:04)
[2022-04-11] MEDS ORDERED: METOCLOPRAMIDE INJ 10 MG/2 ML (REGLAN) IM STA (09:04)
[2022-04-11] MEDS ORDERED: KETOROLAC 30 MG/ML VIAL IM STA (09:04)
== END 2022-04-11 09:14 | disposition home or self-care (01) ==
LOC: EDUNIT# 08:50 → ER FS 08:51
DX: G43.009 Migraine without aura, not intractable, without status migrainosus (principal); H92.01 Otalgia, right ear; H61.21 Impacted cerumen, right ear
CPT/HCPCS: 99284

== ENCOUNTER 2022-05-04 12:53 | Emergency (ER) | payer MEDICARE, MEDICAID ==
[~2022-05-04] VITALS: Ht 160 cm; Wt 106.0 kg
--- NOTE | 2022-05-04 12:56 | ED Headache ---
General Stated Complaint: HEADACHE History of Present Illness Date Seen by Provider: May 04, 2022 Time Seen by Provider: 12:56 Initial Comments 42-year-old female presents with headache. Patient reports that this is her typical migraine. She has some nausea with it. Started around 5:00 this morning. Patient is here for her "shots" patient was here approximately a month ago with similar symptoms and recently just changed migraine medications. No other systemic complaints. Allergies and Home Medications Allergies Coded Allergies: zolmitriptan (Verified Adverse Reaction, Unknown, 09/29/19) Patient Home Medication List Home Medication List Reviewed: Yes Aspirin/Acetaminophen/Caffeine (Excedrin Migraine Caplet) 1 Each Tablet, 2 EACH PO Q6-8HR PRN for Headache, (Reported) Entered as Reported by: NATE ZHU on 07/01/20 0950 Cetirizine HCl (Cetirizine HCl) 10 Mg Tablet, 10 MG PO HS, (Reported) Entered as Reported by: DIXIE BROWN on 07/21/19 1516 Citalopram Hydrobromide (Citalopram HBr) 40 Mg Tablet, 40 MG PO HS, (Reported) Entered as Reported by: MALINDA KOCH on 04/02/19 0947 Clindamycin HCl (Clindamycin HCl) 300 Mg Capsule, 300 MG PO TID Prescribed by: DARCI ECHOLS on 03/08/22 1014 Ergocalciferol (Vitamin D2) (Vitamin D2) 1,250 Mcg Capsule, 1,250 MCG PO WEEK, (Reported) Entered as Reported by: NATE ZHU on 07/01/20 0950 Ferrous Sulfate (Ferrous Sulfate) 325 Mg Tablet, 325 MG PO DAILY, (Reported) Entered as Reported by: DIXIE BROWN on 07/21/19 1516 Fluconazole (Diflucan) 100 Mg Tablet, 100 MG PO DAILY Prescribed by: DARCI ECHOLS on 03/08/22 1014 Hydrocodone Bit/Acetaminophen (HYDROcodone/APAP 5 MG/325 MG TAB) 1 Tab Tab, 1 TAB PO Q4H PRN for PAIN-MODERATE (5-7) Prescribed by: OWEN VARELA on 07/13/20 1050 Hydrocodone/Acetaminophen (Hydrocodone-Acetamin 5-325 mg) 5 Mg-325 Mg Tablet, 1 TAB PO Q4H PRN for PAIN-MODERATE (5-7) Prescribed by: DARCI ECHOLS on 03/08/22 1015 Levothyroxine Sodium (Levothyroxine Sodium) 88 Mcg Tablet, 88 MCG PO DAILY, (Reported) Entered as Reported by: DIXIE BROWN on 07/21/19 1516 Montelukast Sodium (Montelukast Sodium) 10 Mg Tablet, 10 MG PO HS, (Reported) Entered as Reported by: MALINDA KOCH on 04/02/19 0947 Ondansetron (Ondansetron Odt) 8 Mg Tab.rapdis, 8 MG PO Q8H PRN for NAUSEA/VOMITING-1ST LINE, (Reported) Entered as Reported by: NATE ZHU on 07/01/20 0950 Ondansetron (Ondansetron Odt) 4 Mg Tab.rapdis, 4 MG PO Q6H Prescribed by: DARCI ECHOLS on 11/22/21 1037 Ondansetron (Ondansetron Odt) 4 Mg Tab.rapdis, 4 MG PO Q6H PRN for NAUSEA/VOMITING Prescribed by: MIGUELITO GUZMÁN on 02/13/22 1357 Pantoprazole Sodium (Protonix) 40 Mg Tablet.dr, 40 MG PO BID Prescribed by: OWEN VARELA on 07/13/20 1049 Potassium Chloride (Klor-Con 10) 10 Meq Tablet.er, 10 MEQ PO DAILY, (Reported) Entered as Reported by: NATE ZHU on 07/01/20 0950 Propranolol HCl (Propranolol HCl) 20 Mg Tablet, 20 MG PO BID, (Reported) Entered as Reported by: DIXIE BROWN on 07/21/19 1516 Sucralfate (Sucralfate) 1 Gm Tablet, 1 GM PO DAILY, (Reported) Entered as Reported by: MALINDA KOCH on 06/16/20 1014 Topiramate (Topiramate) 100 Mg Tablet, 100 MG PO TID, (Reported) Entered as Reported by: MALINDA KOCH on 04/02/19 0947 Review of Systems Review of Systems Constitutional: No chills, No fever Eyes: Photophobia Ears, Nose, Mouth, Throat: no symptoms reported Respiratory: no symptoms reported Cardiovascular: no symptoms reported Gastrointestinal: nausea; No vomiting Genitourinary: no symptoms reported Musculoskeletal: no symptoms reported Skin: no symptoms reported Psychiatric/Neurological: Headache Past Qzvlhat-Unuxwx-Yauxfz Hx Immunizations Up To Date First/Initial COVID19 Vaccinat: denies Second COVID19 Vaccination Allen: denies Third COVID19 Vaccination Date: denies Seasonal Allergies Seasonal Allergies: Yes Past Medical History Surgery/Hospitalization HX: Migraine headaches Surgeries: Yes Gallbladder Respiratory: No Currently Using CPAP: No Currently Using BIPAP: No Cardiac: No Neurological: Yes Headaches /Migraines Genitourinary: No Gastrointestinal: Yes (chronic gastritis, pyloric stenosis) Musculoskeletal: No Endocrine: Yes Hypothyroidsim HEENT: No Cancer: No Psychosocial: Yes Depression Integumentary: No Blood Disorders: No Family Medical History Cancer, Diabetes Physical Exam Vital Signs Vital Signs - First Documented 05/04/22 13:05 Temp 35.8 Pulse 91 Resp 16 B/P (MAP) 124/88 (100) Pulse Ox 97 Capillary Refill : Height, Weight, BMI Height: 5'3.00" Weight: 160lbs. 0oz. 72.002998ga; 42.00 BMI Method:Stated General Appearance: WD/WN, no apparent distress HEENT: PERRL/EOMI Neck: full range of motion Cardiovascular: normal peripheral pulses, regular rate, rhythm Respiratory: lungs clear, normal breath sounds Gastrointestinal: non tender, soft Psychiatric: alert, oriented x 3 Crainal Nerves: normal hearing, normal speech Coordination/Gait: normal gait Motor/Sensory: no motor deficit, no sensory deficit Skin: normal color, warm/dry Progress/Results/Core Measures Results/Orders My Orders Orders - PAZ ANGELO DO Ketorolac Injection (Toradol Injection) (05/04/22 13:03) Metoclopramide Injection (Reglan Injecti (05/04/22 13:03) Vital Signs/I&O 05/04/22 13:05 Temp 35.8 Pulse 91 Resp 16 B/P (MAP) 124/88 (100) Pulse Ox 97 Progress Progress Note : Progress Note Patient with typical migraine. Treat her with Reglan and Toradol. Recommend she follow-up with her headache specialist. She is stable and discharged Departure Impression Primary Impression: Migraine headache without aura Qualified Codes: G43.009 - Migraine without aura, not intractable, without status migrainosus Disposition: 01 HOME, SELF-CARE Condition: Stable Departure-Patient Inst. Referrals: SELF,ANDREW MD (PCP) Primary Care Physician Patient Instructions: Headache, Adult (DC) Add. Discharge Instructions: Please follow-up with your headache specialist to review your medications and other options for treatment PAZ ANGELO DO May 04, 2022 12:56
[2022-05-04] MEDS ORDERED: KETOROLAC 30 MG/ML VIAL IM STA (13:03)
[2022-05-04] MEDS ORDERED: METOCLOPRAMIDE INJ 10 MG/2 ML (REGLAN) IM/IV STA (13:03)
[2022-05-04 13:05] VITALS: BP 124/88
== END 2022-05-04 13:25 | disposition home or self-care (01) ==
LOC: EDUNIT# 12:53 → ER FS 12:54
DX: G43.009 Migraine without aura, not intractable, without status migrainosus (principal); Z28.310 Unvaccinated for COVID-19
CPT/HCPCS: 99284

== ENCOUNTER 2022-05-22 10:42 | Emergency (ER) | payer MEDICARE, MEDICAID ==
[~2022-05-22] VITALS: Ht 160 cm; Wt 108.3 kg
[2022-05-22 10:52] VITALS: BP 100/76
[2022-05-22] MEDS ORDERED: diphenhydrAMINE 50 MG/ML INJ (BENADRYL) IM ONE (11:00)
[2022-05-22] MEDS ORDERED: METOCLOPRAMIDE INJ 10 MG/2 ML (REGLAN) IM ONE (11:00)
[2022-05-22] MEDS ORDERED: KETOROLAC 15 MG/ML VIAL IM ONE (11:00)
--- NOTE | 2022-05-22 11:12 | ED Headache ---
General Chief Complaint: Head/Cervical Problems Stated Complaint: ORELLANA; RT EAR PAIN Nursing Triage Note: Pt presents with c/o migraine pain. She states she woke up with the pain, and that she's had ear pain x2 days that she believes is weather related. She did see her chiropractor this morning and had her neck put back in place, but it did not help her headache. Pt would like her 3 shots. Source: patient Exam Limitations: no limitations History of Present Illness Date Seen by Provider: May 22, 2022 Time Seen by Provider: 10:50 Initial Comments 42-year-old female with past medical history of chronic migraines coming in due to what she states is a migraine headache. This 1 started around 5 AM today, is in the front of her head, moderate to severe. She took her regular medications which have not been helpful. Also try going to the chiropractor but also did not help. Denies any vision changes, weakness, numbness, neck stiffness, fever, chest pain, shortness of breath, or any other concerns. She states this feels like the headache she has been having since she was 13 years old. She does have an appointment with her neurologist soon, she is going to call to try to get in sooner. Allergies and Home Medications Allergies Coded Allergies: zolmitriptan (Verified Adverse Reaction, Unknown, 09/29/19) Patient Home Medication List Home Medication List Reviewed: Yes Aspirin/Acetaminophen/Caffeine (Excedrin Migraine Caplet) 1 Each Tablet, 2 EACH PO Q6-8HR PRN for Headache, (Reported) Entered as Reported by: NATE ZHU on 07/01/20 0950 Cetirizine HCl (Cetirizine HCl) 10 Mg Tablet, 10 MG PO HS, (Reported) Entered as Reported by: DIXIE BROWN on 07/21/19 1516 Citalopram Hydrobromide (Citalopram HBr) 40 Mg Tablet, 40 MG PO HS, (Reported) Entered as Reported by: MALINDA KOCH on 04/02/19 0947 Clindamycin HCl (Clindamycin HCl) 300 Mg Capsule, 300 MG PO TID Prescribed by: DARCI ECHOLS on 03/08/22 1014 Ergocalciferol (Vitamin D2) (Vitamin D2) 1,250 Mcg Capsule, 1,250 MCG PO WEEK, (Reported) Entered as Reported by: NATE ZHU on 07/01/20 0950 Ferrous Sulfate (Ferrous Sulfate) 325 Mg Tablet, 325 MG PO DAILY, (Reported) Entered as Reported by: DIXIE BROWN on 07/21/19 1516 Fluconazole (Diflucan) 100 Mg Tablet, 100 MG PO DAILY Prescribed by: DARCI ECHOLS on 03/08/22 1014 Hydrocodone Bit/Acetaminophen (HYDROcodone/APAP 5 MG/325 MG TAB) 1 Tab Tab, 1 TAB PO Q4H PRN for PAIN-MODERATE (5-7) Prescribed by: OWEN VARELA on 07/13/20 1050 Hydrocodone/Acetaminophen (Hydrocodone-Acetamin 5-325 mg) 5 Mg-325 Mg Tablet, 1 TAB PO Q4H PRN for PAIN-MODERATE (5-7) Prescribed by: DARCI ECHOLS on 03/08/22 1015 Levothyroxine Sodium (Levothyroxine Sodium) 88 Mcg Tablet, 88 MCG PO DAILY, (Reported) Entered as Reported by: DIXIE BROWN on 07/21/19 1516 Montelukast Sodium (Montelukast Sodium) 10 Mg Tablet, 10 MG PO HS, (Reported) Entered as Reported by: MALINDA KOCH on 04/02/19 0947 Ondansetron (Ondansetron Odt) 8 Mg Tab.rapdis, 8 MG PO Q8H PRN for NAUSEA/VOMITING-1ST LINE, (Reported) Entered as Reported by: NATE ZHU on 07/01/20 0950 Ondansetron (Ondansetron Odt) 4 Mg Tab.rapdis, 4 MG PO Q6H Prescribed by: DARCI ECHOLS on 11/22/21 1037 Ondansetron (Ondansetron Odt) 4 Mg Tab.rapdis, 4 MG PO Q6H PRN for NAUSEA/VOMITING Prescribed by: MIGUELITO GUZMÁN on 02/13/22 1357 Pantoprazole Sodium (Protonix) 40 Mg Tablet.dr, 40 MG PO BID Prescribed by: OWEN VARELA on 07/13/20 1049 Potassium Chloride (Klor-Con 10) 10 Meq Tablet.er, 10 MEQ PO DAILY, (Reported) Entered as Reported by: NATE ZHU on 07/01/20 0950 Propranolol HCl (Propranolol HCl) 20 Mg Tablet, 20 MG PO BID, (Reported) Entered as Reported by: DIXIE BROWN on 07/21/19 1516 Sucralfate (Sucralfate) 1 Gm Tablet, 1 GM PO DAILY, (Reported) Entered as Reported by: MALINDA KOCH on 06/16/20 1014 Topiramate (Topiramate) 100 Mg Tablet, 100 MG PO TID, (Reported) Entered as Reported by: MALINDA KOCH on 04/02/19 0947 Review of Systems Review of Systems Constitutional: No fever Eyes: No Symptoms Reported Ears, Nose, Mouth, Throat: no symptoms reported Respiratory: no symptoms reported Cardiovascular: no symptoms reported Gastrointestinal: no symptoms reported Genitourinary: no symptoms reported Musculoskeletal: no symptoms reported Skin: no symptoms reported Psychiatric/Neurological: See HPI All Other Systems Reviewed Negative Unless Noted: Yes Past Pnwnzrx-Mjvpnz-Sftpwo Hx Patient Social History Tobacco Use?: No Immunizations Up To Date First/Initial COVID19 Vaccinat: denies Second COVID19 Vaccination Allen: denies Third COVID19 Vaccination Date: denies Seasonal Allergies Seasonal Allergies: Yes Past Medical History Surgery/Hospitalization HX: Migraine headaches Surgeries: Yes Gallbladder Respiratory: No Currently Using CPAP: No Currently Using BIPAP: No Cardiac: No Neurological: Yes Headaches /Migraines Genitourinary: No Gastrointestinal: Yes (chronic gastritis, pyloric stenosis) Musculoskeletal: No Endocrine: Yes Hypothyroidsim HEENT: No Cancer: No Psychosocial: Yes Depression Integumentary: No Blood Disorders: No Family Medical History Cancer, Diabetes Physical Exam Vital Signs Vital Signs - First Documented 05/22/22 10:52 Temp 36.5 Pulse 84 Resp 18 B/P (MAP) 100/76 (84) Pulse Ox 97 O2 Delivery Room Air Capillary Refill : Less Than 3 Seconds Height, Weight, BMI Height: 5'3.00" Weight: 160lbs. 0oz. 72.776328lr; 42.00 BMI Method:Stated General Appearance: WD/WN, no apparent distress HEENT: PERRL/EOMI, normal ENT inspection, pharynx normal, other (Bilateral cerumen impaction) Neck: non-tender, full range of motion, supple, normal inspection Cardiovascular: regular rate, rhythm, no edema, no murmur Respiratory: chest non-tender, lungs clear, normal breath sounds, no respiratory distress, no accessory muscle use Gastrointestinal: normal bowel sounds, non tender, soft; No distended, No guarding, No rebound Back: normal inspection, no CVA tenderness Extremities: normal range of motion, non-tender, normal inspection, no pedal edema, no calf tenderness, normal capillary refill Psychiatric: alert, oriented x 3 Crainal Nerves: normal hearing, normal speech, PERRL Coordination/Gait: normal finger to nose, normal gait Motor/Sensory: no motor deficit, no sensory deficit Skin: normal color, warm/dry Lymphatic: no adenopathy Progress/Results/Core Measures Results/Orders My Orders Orders - TAZ GONZALEZ MD Metoclopramide Injection (Reglan Injecti (05/22/22 11:00) Diphenhydramine Injection (Benadryl Inje (05/22/22 11:00) Ketorolac Injection (Toradol Injection) (05/22/22 11:00) Vital Signs/I&O 05/22/22 10:52 Temp 36.5 Pulse 84 Resp 18 B/P (MAP) 100/76 (84) Pulse Ox 97 O2 Delivery Room Air Blood Pressure Mean: 84 Progress Progress Note : Progress Note 42-year-old female coming in for what she states is her typical headache. ABCs were intact, vital stable on presentation with a comprehensive neuro exam normal. She has no red flags for her headache. She is well-appearing. We will treat her symptomatically and have her follow-up with her neurologist. In regards to her ear pain, she is afebrile, no redness or signs of external infection. She does have bilateral cerumen impaction, we will recommend treating with mineral oil daily to try to remove the impaction. Departure Impression Primary Impression: Headache Qualified Codes: G44.219 - Episodic tension-type headache, not intractable Additional Impression: Cerumen impaction Qualified Codes: H61.23 - Impacted cerumen, bilateral Disposition: 01 HOME, SELF-CARE Condition: Stable Departure-Patient Inst. Decision time for Depature: 11:15 Referrals: SELFANDREW MD (PCP) Primary Care Physician BJ DELEON MD Patient Instructions: Headache, Adult ED, Ear Wax Impaction ED Add. Discharge Instructions: You do have a bunch of earwax in your ears, buy some mineral oil or you can even put a couple drops of olive oil in each ear every day to help the wax be removed. You can follow-up with Dr. Deleon if this is not improving. Otherwise please follow-up with your neurologist in regards to your headache Work/School Note: Work Release Form Date Seen in the Emergency Department: May 22, 2022 Return to Work: May 23, 2022 Restrictions: No Restrictions TAZ GONZALEZ MD May 22, 2022 11:12
== END 2022-05-22 11:20 | disposition home or self-care (01) ==
LOC: EDUNIT# 10:42 → ER FS 10:43
DX: G43.909 Migraine, unspecified, not intractable, without status migrainosus (principal); H61.23 Impacted cerumen, bilateral; Z28.310 Unvaccinated for COVID-19
CPT/HCPCS: 99284

== ENCOUNTER 2022-06-14 08:54 | Emergency (ER) | payer MEDICARE, MEDICAID ==
[2022-06-14] MEDS ORDERED: KETOROLAC 15 MG/ML VIAL IM ONE (09:15)
[2022-06-14] MEDS ORDERED: METOCLOPRAMIDE INJ 10 MG/2 ML (REGLAN) IM ONE (09:15)
[2022-06-14] MEDS ORDERED: diphenhydrAMINE 50 MG/ML INJ (BENADRYL) IM ONE (09:15)
--- NOTE | 2022-06-14 09:15 | ED Headache ---
General Chief Complaint: Head/Cervical Problems Stated Complaint: HEADACHE Nursing Triage Note: PT REPORTS SHE HAS HER "NORMAL MIGRAINE". SHE REPORTS PAIN THE IS ALL OVER HER HEAD. Source: patient Exam Limitations: no limitations History of Present Illness Date Seen by Provider: Jun 14, 2022 Time Seen by Provider: 08:58 Initial Comments 42-year-old female with past medical history of migraine headaches that are chronic coming in due to a headache. Started around 2 AM this morning, front of her head wrapping around to the back, constant, throbbing. Was slow in onset, feels like a typical headache that she gets. Denies any fever, neck stiffness, vision changes, weakness, numbness, chest pain, or any other concerns. Tried Zofran this morning. Does have a specialist and she took what ever medicine she was supposed to take for headaches, but does not seem to be working. She plans to call him when she starts feeling better. Allergies and Home Medications Allergies Coded Allergies: zolmitriptan (Verified Adverse Reaction, Unknown, 09/29/19) Patient Home Medication List Home Medication List Reviewed: Yes Aspirin/Acetaminophen/Caffeine (Excedrin Migraine Caplet) 1 Each Tablet, 2 EACH PO Q6-8HR PRN for Headache, (Reported) Entered as Reported by: NATE ZHU on 07/01/20 0950 Cetirizine HCl (Cetirizine HCl) 10 Mg Tablet, 10 MG PO HS, (Reported) Entered as Reported by: DIXIE BROWN on 07/21/19 1516 Citalopram Hydrobromide (Citalopram HBr) 40 Mg Tablet, 40 MG PO HS, (Reported) Entered as Reported by: MALINDA KOCH on 04/02/19 0947 Clindamycin HCl (Clindamycin HCl) 300 Mg Capsule, 300 MG PO TID Prescribed by: DARCI ECHOLS on 03/08/22 1014 Ergocalciferol (Vitamin D2) (Vitamin D2) 1,250 Mcg Capsule, 1,250 MCG PO WEEK, (Reported) Entered as Reported by: NATE ZHU on 07/01/20 0950 Ferrous Sulfate (Ferrous Sulfate) 325 Mg Tablet, 325 MG PO DAILY, (Reported) Entered as Reported by: DIXIE BROWN on 07/21/19 1516 Fluconazole (Diflucan) 100 Mg Tablet, 100 MG PO DAILY Prescribed by: DARCI ECHOLS on 03/08/22 1014 Hydrocodone Bit/Acetaminophen (HYDROcodone/APAP 5 MG/325 MG TAB) 1 Tab Tab, 1 TAB PO Q4H PRN for PAIN-MODERATE (5-7) Prescribed by: OWEN VARELA on 07/13/20 1050 Hydrocodone/Acetaminophen (Hydrocodone-Acetamin 5-325 mg) 5 Mg-325 Mg Tablet, 1 TAB PO Q4H PRN for PAIN-MODERATE (5-7) Prescribed by: DARCI ECHOLS on 03/08/22 1015 Levothyroxine Sodium (Levothyroxine Sodium) 88 Mcg Tablet, 88 MCG PO DAILY, (Reported) Entered as Reported by: DIXIE BROWN on 07/21/19 1516 Montelukast Sodium (Montelukast Sodium) 10 Mg Tablet, 10 MG PO HS, (Reported) Entered as Reported by: MALINDA KOCH on 04/02/19 0947 Ondansetron (Ondansetron Odt) 8 Mg Tab.rapdis, 8 MG PO Q8H PRN for NAUSEA/VOMITING-1ST LINE, (Reported) Entered as Reported by: NATE ZHU on 07/01/20 0950 Ondansetron (Ondansetron Odt) 4 Mg Tab.rapdis, 4 MG PO Q6H Prescribed by: DARCI ECHOLS on 11/22/21 1037 Ondansetron (Ondansetron Odt) 4 Mg Tab.rapdis, 4 MG PO Q6H PRN for NAUSEA/VOMITING Prescribed by: MIGUELITO GUZMÁN on 02/13/22 1357 Pantoprazole Sodium (Protonix) 40 Mg Tablet.dr, 40 MG PO BID Prescribed by: OWEN VARELA on 07/13/20 1049 Potassium Chloride (Klor-Con 10) 10 Meq Tablet.er, 10 MEQ PO DAILY, (Reported) Entered as Reported by: NATE ZHU on 07/01/20 0950 Propranolol HCl (Propranolol HCl) 20 Mg Tablet, 20 MG PO BID, (Reported) Entered as Reported by: DIXIE BROWN on 07/21/19 1516 Sucralfate (Sucralfate) 1 Gm Tablet, 1 GM PO DAILY, (Reported) Entered as Reported by: MALINDA KOCH on 06/16/20 1014 Topiramate (Topiramate) 100 Mg Tablet, 100 MG PO TID, (Reported) Entered as Reported by: MALINDA KOCH on 04/02/19 0947 Review of Systems Review of Systems Constitutional: No fever Eyes: Denies Blurred Vision Ears, Nose, Mouth, Throat: no symptoms reported Respiratory: no symptoms reported Cardiovascular: no symptoms reported Gastrointestinal: no symptoms reported Genitourinary: no symptoms reported Psychiatric/Neurological: See HPI Past Dzvyxfr-Uoktfs-Xirfmf Hx Patient Social History Tobacco Use?: No Use of E-Cig and/or Vaping dev: No Substance use?: No Alcohol Use?: No Pt feels they are or have been: No Immunizations Up To Date First/Initial COVID19 Vaccinat: denies Second COVID19 Vaccination Allen: denies Third COVID19 Vaccination Date: denies Seasonal Allergies Seasonal Allergies: Yes Past Medical History Surgery/Hospitalization HX: Migraine headaches Surgeries: Yes Gallbladder Respiratory: No Currently Using CPAP: No Currently Using BIPAP: No Cardiac: No Neurological: Yes Headaches /Migraines Genitourinary: No Gastrointestinal: Yes (chronic gastritis, pyloric stenosis) Musculoskeletal: No Endocrine: Yes Hypothyroidsim HEENT: No Cancer: No Psychosocial: Yes Depression Integumentary: No Blood Disorders: No Family Medical History Cancer, Diabetes Physical Exam Vital Signs Vital Signs - First Documented 06/14/22 09:07 Temp 36.5 Pulse 93 Resp 18 B/P (MAP) 122/91 (101) Pulse Ox 96 O2 Delivery Room Air Capillary Refill : Less Than 3 Seconds Height, Weight, BMI Height: 5'3.00" Weight: 160lbs. 0oz. 72.717170de; 42.00 BMI Method:Stated General Appearance: WD/WN, no apparent distress HEENT: PERRL/EOMI, normal ENT inspection, pharynx normal Neck: non-tender, full range of motion, supple, normal inspection, other (No meningismus) Cardiovascular: regular rate, rhythm, no edema Respiratory: chest non-tender, lungs clear, normal breath sounds, no respiratory distress, no accessory muscle use Back: normal inspection Extremities: normal range of motion, non-tender, normal inspection, no pedal edema, no calf tenderness, normal capillary refill Psychiatric: alert, oriented x 3 Crainal Nerves: normal hearing, normal speech, PERRL Coordination/Gait: normal finger to nose, normal gait Motor/Sensory: no motor deficit, no sensory deficit Skin: normal color, warm/dry Progress/Results/Core Measures Results/Orders My Orders Orders - TAZ GONZALEZ MD Metoclopramide Injection (Reglan Injecti (06/14/22 09:15) Diphenhydramine Injection (Benadryl Inje (06/14/22 09:15) Ketorolac Injection (Toradol Injection) (06/14/22 09:15) Vital Signs/I&O 06/14/22 09:07 Temp 36.5 Pulse 93 Resp 18 B/P (MAP) 122/91 (101) Pulse Ox 96 O2 Delivery Room Air Blood Pressure Mean: 101 Progress Progress Note : Progress Note 42-year-old female presenting for what she states is her typical headache. No red flags making subarachnoid hemorrhage unlikely, no meningismus or fever making meningitis unlikely, no trauma making any type of brain hemorrhage unlikely. No history of cancer, no weight loss, no obvious signs of any type of mass in her head with a nonfocal neuro exam. Considered a CT head, but the patient has had normal neuroimaging with similar headaches numerous times before, and I think it would be unlikely to be helpful in any type of diagnosis. She was given IM injections of medications which have worked for her in the past. I believe she is stable for discharge with outpatient follow-up. She was sent home with strict return precautions. Departure Impression Primary Impression: Headache Qualified Codes: G44.229 - Chronic tension-type headache, not intractable Disposition: 01 HOME, SELF-CARE Condition: Stable Departure-Patient Inst. Decision time for Depature: 09:15 Referrals: ANDREW DONAHUE MD (PCP) Primary Care Physician Patient Instructions: Headache, Adult ED Add. Discharge Instructions: Be sure to drink plenty of fluids. Call your specialist when you are able to to see if there are any other medications that can add to help with your chronic headaches. Work/School Note: Work Release Form Date Seen in the Emergency Department: Jun 14, 2022 Return to Work: Jun 15, 2022 Restrictions: No Restrictions TAZ GONZALEZ MD Jun 14, 2022 09:15
[2022-06-14 09:22] VITALS: BP 122/91
== END 2022-06-14 09:22 | disposition home or self-care (01) ==
LOC: EDUNIT# 08:54 → ER FS 08:56
DX: R51.9 Headache, unspecified (principal); Z86.69 Personal history of other diseases of the nervous system and sense organs; Z28.310 Unvaccinated for COVID-19
CPT/HCPCS: 99284

== ENCOUNTER 2022-07-03 09:40 | Emergency (ER) | payer MEDICARE, MEDICAID ==
[2022-07-03 10:13] VITALS: BP 134/79
--- NOTE | 2022-07-03 10:19 | ED Headache ---
General Chief Complaint: Head/Cervical Problems Stated Complaint: HEADACHE Source: patient Exam Limitations: no limitations History of Present Illness Date Seen by Provider: Jul 03, 2022 Time Seen by Provider: 09:42 Initial Comments 42-year-old female with past medical history of chronic migraines coming in due to a migraine. Started on the left side of her head, wraps around her head. Started at roughly 5:30 AM this morning. She states it feels like her typical migraines. She took her normal abortive medications and it did not work. She also was on a new daily pill which she believes is called Qulipta which she has been taking for 5 days. Denies any fever, vision changes, weakness, numbness, voice changes, neck stiffness, or any other concerns. Allergies and Home Medications Allergies Coded Allergies: zolmitriptan (Verified Adverse Reaction, Unknown, 09/29/19) Patient Home Medication List Home Medication List Reviewed: Yes Aspirin/Acetaminophen/Caffeine (Excedrin Migraine Caplet) 1 Each Tablet, 2 EACH PO Q6-8HR PRN for Headache, (Reported) Entered as Reported by: NATE ZHU on 07/01/20 0950 Cetirizine HCl (Cetirizine HCl) 10 Mg Tablet, 10 MG PO HS, (Reported) Entered as Reported by: DIXIE BROWN on 07/21/19 1516 Citalopram Hydrobromide (Citalopram HBr) 40 Mg Tablet, 40 MG PO HS, (Reported) Entered as Reported by: MALINDA KOCH on 04/02/19 0947 Clindamycin HCl (Clindamycin HCl) 300 Mg Capsule, 300 MG PO TID Prescribed by: DARCI ECHOLS on 03/08/22 1014 Ergocalciferol (Vitamin D2) (Vitamin D2) 1,250 Mcg Capsule, 1,250 MCG PO WEEK, (Reported) Entered as Reported by: NATE ZHU on 07/01/20 0950 Ferrous Sulfate (Ferrous Sulfate) 325 Mg Tablet, 325 MG PO DAILY, (Reported) Entered as Reported by: DIXIE BROWN on 07/21/19 1516 Fluconazole (Diflucan) 100 Mg Tablet, 100 MG PO DAILY Prescribed by: DARCI ECHOLS on 03/08/22 1014 Hydrocodone Bit/Acetaminophen (HYDROcodone/APAP 5 MG/325 MG TAB) 1 Tab Tab, 1 TAB PO Q4H PRN for PAIN-MODERATE (5-7) Prescribed by: OWEN VARELA on 07/13/20 1050 Hydrocodone/Acetaminophen (Hydrocodone-Acetamin 5-325 mg) 5 Mg-325 Mg Tablet, 1 TAB PO Q4H PRN for PAIN-MODERATE (5-7) Prescribed by: DARCI ECHOLS on 03/08/22 1015 Levothyroxine Sodium (Levothyroxine Sodium) 88 Mcg Tablet, 88 MCG PO DAILY, (Reported) Entered as Reported by: DIXIE BROWN on 07/21/19 1516 Montelukast Sodium (Montelukast Sodium) 10 Mg Tablet, 10 MG PO HS, (Reported) Entered as Reported by: MALINDA KOCH on 04/02/19 0947 Ondansetron (Ondansetron Odt) 8 Mg Tab.rapdis, 8 MG PO Q8H PRN for NAUSEA/VOMITING-1ST LINE, (Reported) Entered as Reported by: NATE ZHU on 07/01/20 0950 Ondansetron (Ondansetron Odt) 4 Mg Tab.rapdis, 4 MG PO Q6H Prescribed by: DARCI ECHOLS on 11/22/21 1037 Ondansetron (Ondansetron Odt) 4 Mg Tab.rapdis, 4 MG PO Q6H PRN for NAUSEA/VOMITING Prescribed by: MIGUELITO GUZMÁN on 02/13/22 1357 Pantoprazole Sodium (Protonix) 40 Mg Tablet.dr, 40 MG PO BID Prescribed by: OWEN VARELA on 07/13/20 1049 Potassium Chloride (Klor-Con 10) 10 Meq Tablet.er, 10 MEQ PO DAILY, (Reported) Entered as Reported by: NATE ZHU on 07/01/20 0950 Propranolol HCl (Propranolol HCl) 20 Mg Tablet, 20 MG PO BID, (Reported) Entered as Reported by: DIXIE BROWN on 07/21/19 1516 Sucralfate (Sucralfate) 1 Gm Tablet, 1 GM PO DAILY, (Reported) Entered as Reported by: MALINDA KOCH on 06/16/20 1014 Topiramate (Topiramate) 100 Mg Tablet, 100 MG PO TID, (Reported) Entered as Reported by: MALINDA KOCH on 04/02/19 0947 Review of Systems Review of Systems Constitutional: No fever Eyes: No Symptoms Reported Ears, Nose, Mouth, Throat: no symptoms reported Respiratory: no symptoms reported Cardiovascular: no symptoms reported Psychiatric/Neurological: See HPI Past Uooplvw-Sxllzl-Gbztgy Hx Patient Social History Tobacco Use?: No Use of E-Cig and/or Vaping dev: No Substance use?: No Alcohol Use?: No Pt feels they are or have been: Unable to obtain Immunizations Up To Date First/Initial COVID19 Vaccinat: denies Second COVID19 Vaccination Allen: denies Third COVID19 Vaccination Date: denies Seasonal Allergies Seasonal Allergies: Yes Past Medical History Surgery/Hospitalization HX: Migraine headaches Surgeries: Yes Gallbladder Respiratory: No Currently Using CPAP: No Currently Using BIPAP: No Cardiac: No Neurological: Yes Headaches /Migraines Genitourinary: No Gastrointestinal: Yes (chronic gastritis, pyloric stenosis) Musculoskeletal: No Endocrine: Yes Hypothyroidsim HEENT: No Cancer: No Psychosocial: Yes Depression Integumentary: No Blood Disorders: No Family Medical History Cancer, Diabetes Physical Exam Vital Signs Capillary Refill : Height, Weight, BMI Height: 5'3.00" Weight: 160lbs. 0oz. [id number]; 42.00 BMI Method:Stated General Appearance: WD/WN, no apparent distress HEENT: PERRL/EOMI, normal ENT inspection, pharynx normal Neck: non-tender, full range of motion, supple, normal inspection, other (No meningismus) Cardiovascular: regular rate, rhythm, no edema, no murmur Respiratory: chest non-tender, lungs clear, normal breath sounds, no respirat ory distress Gastrointestinal: normal bowel sounds, non tender, soft Back: normal inspection Extremities: normal range of motion, non-tender, normal inspection, no pedal edema, no calf tenderness, normal capillary refill Psychiatric: oriented x 3 Crainal Nerves: normal hearing, normal speech, PERRL Coordination/Gait: normal gait Motor/Sensory: no motor deficit, no sensory deficit Skin: normal color, warm/dry Progress/Results/Core Measures Progress Progress Note : Progress Note 42-year-old female with above history coming in due to headache. ABCs were intact and vitals were stable on presentation. Physical exam reassuring including a nonfocal neuro exam. No meningismus, negative jolt test, no clinical signs concerning for meningitis. This does seem similar to all the patient's prior migraines which happen quite frequently. She has had negative neuroimaging, we will forego imaging at this time. We will give her IM injections to help with her headache and she can follow back up with her specialist. Departure Impression Primary Impression: Headache Qualified Codes: G44.219 - Episodic tension-type headache, not intractable Disposition: 01 HOME, SELF-CARE Condition: Stable Departure-Patient Inst. Decision time for Depature: 10:30 Referrals: ANDREW DONAHUE MD (PCP) Primary Care Physician Patient Instructions: Headache, Adult ED Add. Discharge Instructions: Please follow back up with your specialist if symptoms continue. Work/School Note: Work Release Form Date Seen in the Emergency Department: Jul 03, 2022 Return to Work: Jul 04, 2022 Restrictions: No Restrictions TAZ GONZALEZ MD Jul 03, 2022 10:19
[2022-07-03] MEDS ORDERED: KETOROLAC 15 MG/ML VIAL IM ONE (10:30)
[2022-07-03] MEDS ORDERED: METOCLOPRAMIDE INJ 10 MG/2 ML (REGLAN) IM ONE (10:30)
[2022-07-03] MEDS ORDERED: diphenhydrAMINE 50 MG/ML INJ (BENADRYL) IM ONE (10:30)
== END 2022-07-03 10:35 | disposition home or self-care (01) ==
LOC: EDUNIT# 09:40 → ER FS 09:41
DX: R51.9 Headache, unspecified (principal)
CPT/HCPCS: 99284

== ENCOUNTER 2022-07-18 10:16 | Emergency (ER) | payer MEDICARE, MEDICAID ==
[2022-07-18] MEDS ORDERED: KETOROLAC 30 MG/ML VIAL IM STA (10:22)
[2022-07-18] MEDS ORDERED: METOCLOPRAMIDE INJ 10 MG/2 ML (REGLAN) IM STA (10:22)
[2022-07-18] MEDS ORDERED: diphenhydrAMINE 50 MG/ML INJ (BENADRYL) IM STA (10:22)
[2022-07-18 10:24] VITALS: BP 128/80
--- NOTE | 2022-07-18 10:28 | ED Headache ---
General Chief Complaint: Head/Cervical Problems Stated Complaint: HEADACHE Source: patient History of Present Illness Date Seen by Provider: Jul 18, 2022 Time Seen by Provider: 10:21 Initial Comments 42-year-old female presenting by private vehicle with complaints of "my typical migraine headache". She states that she woke up around 4 or 5 this morning and had pain in the front of her head and forehead. She denies any acute trauma, fall, fever, neck pain, change in vision, cough, sore throat, chest pain, abdominal pain, pain with urination, diarrhea. She has had nausea and light sensitivity but has not vomited. She tried taking her regular medications at home for migraine headache and they were not helping so she came to the [facility]. In the past she is required intramuscular injections of medicine to try and help abort the migraine. She usually gets ketorolac, metoclopramide, diphenhydramine IM injections and goes home to rest. Timing/Duration: 4-6 hours Severity/Quality: severe, throbbing Location: frontal Prior Headaches/Recent Trauma: frequent headaches, chronic headaches Modifying Factors: worse with exposure to light Associated Symptoms: No confusion, No fatigue, No facial pain, No fever/chills, No flushing, No loss of consciousness; nausea/vomiting (nausea but no emesis); No nasal congestion, No nasal drainage, No numbness in legs/feet, No rash, No seizures, No sinus infection, No stiff neck, No vision changes, No weakness Allergies and Home Medications Allergies Coded Allergies: zolmitriptan (Verified Adverse Reaction, Unknown, 09/29/19) Patient Home Medication List Home Medication List Reviewed: Yes Aspirin/Acetaminophen/Caffeine (Excedrin Migraine Caplet) 1 Each Tablet, 2 EACH PO Q6-8HR PRN for Headache, (Reported) Entered as Reported by: NATE ZHU on 07/01/20 0950 Cetirizine HCl (Cetirizine HCl) 10 Mg Tablet, 10 MG PO HS, (Reported) Entered as Reported by: DIXIE BROWN on 07/21/19 1516 Citalopram Hydrobromide (Citalopram HBr) 40 Mg Tablet, 40 MG PO HS, (Reported) Entered as Reported by: MALINDA KOCH on 04/02/19 0947 Clindamycin HCl (Clindamycin HCl) 300 Mg Capsule, 300 MG PO TID Prescribed by: DARCI ECHOLS on 03/08/22 1014 Ergocalciferol (Vitamin D2) (Vitamin D2) 1,250 Mcg Capsule, 1,250 MCG PO WEEK, (Reported) Entered as Reported by: NATE ZHU on 07/01/20 0950 Ferrous Sulfate (Ferrous Sulfate) 325 Mg Tablet, 325 MG PO DAILY, (Reported) Entered as Reported by: DIXIE BROWN on 07/21/19 1516 Fluconazole (Diflucan) 100 Mg Tablet, 100 MG PO DAILY Prescribed by: DARCI ECHOLS on 03/08/22 1014 Hydrocodone Bit/Acetaminophen (HYDROcodone/APAP 5 MG/325 MG TAB) 1 Tab Tab, 1 TAB PO Q4H PRN for PAIN-MODERATE (5-7) Prescribed by: OWEN VARELA on 07/13/20 1050 Hydrocodone/Acetaminophen (Hydrocodone-Acetamin 5-325 mg) 5 Mg-325 Mg Tablet, 1 TAB PO Q4H PRN for PAIN-MODERATE (5-7) Prescribed by: DARCI ECHOLS on 03/08/22 1015 Levothyroxine Sodium (Levothyroxine Sodium) 88 Mcg Tablet, 88 MCG PO DAILY, (Reported) Entered as Reported by: DIXIE BROWN on 07/21/19 1516 Montelukast Sodium (Montelukast Sodium) 10 Mg Tablet, 10 MG PO HS, (Reported) Entered as Reported by: MALINDA KOCH on 04/02/19 0947 Ondansetron (Ondansetron Odt) 8 Mg Tab.rapdis, 8 MG PO Q8H PRN for NAUSEA/VOMITING-1ST LINE, (Reported) Entered as Reported by: NATE ZHU on 07/01/20 0950 Ondansetron (Ondansetron Odt) 4 Mg Tab.rapdis, 4 MG PO Q6H Prescribed by: DARCI ECHOLS on 11/22/21 1037 Ondansetron (Ondansetron Odt) 4 Mg Tab.rapdis, 4 MG PO Q6H PRN for NA USEA/VOMITING Prescribed by: MIGUELITO GUZMÁN on 02/13/22 1357 Pantoprazole Sodium (Protonix) 40 Mg Tablet.dr, 40 MG PO BID Prescribed by: OWEN VARELA on 07/13/20 1049 Potassium Chloride (Klor-Con 10) 10 Meq Tablet.er, 10 MEQ PO DAILY, (Reported) Entered as Reported by: NATE ZHU on 07/01/20 0950 Propranolol HCl (Propranolol HCl) 20 Mg Tablet, 20 MG PO BID, (Reported) Entered as Reported by: DIXIE BROWN on 07/21/19 1516 Sucralfate (Sucralfate) 1 Gm Tablet, 1 GM PO DAILY, (Reported) Entered as Reported by: MALINDA KOCH on 06/16/20 1014 Topiramate (Topiramate) 100 Mg Tablet, 100 MG PO TID, (Reported) Entered as Reported by: MALINDA KOCH on 04/02/19 0947 Review of Systems Review of Systems Constitutional: No chills, No fever Eyes: Photophobia; Denies Vision Changes Ears, Nose, Mouth, Throat: denies ear pain, denies ear discharge, denies nose pain, denies nose discharge, denies epistaxis Respiratory: No cough, No short of breath Cardiovascular: No chest pain Gastrointestinal: No diarrhea; nausea; No vomiting Genitourinary: No dysuria Musculoskeletal: No neck pain Skin: No rash Psychiatric/Neurological: See HPI Past Cttddtk-Edqtei-Pgxgje Hx Patient Social History Tobacco Use?: No Use of E-Cig and/or Vaping dev: No Substance use?: No Alcohol Use?: No Immunizations Up To Date First/Initial COVID19 Vaccinat: denies Second COVID19 Vaccination Allen: denies Third COVID19 Vaccination Date: denies Seasonal Allergies Seasonal Allergies: Yes Past Medical History Surgery/Hospitalization HX: Migraine headaches Surgeries: Yes Gallbladder Respiratory: No Currently Using CPAP: No Currently Using BIPAP: No Cardiac: No Neurological: Yes Headaches /Migraines Genitourinary: No Gastrointestinal: Yes (chronic gastritis, pyloric stenosis) Musculoskeletal: No Endocrine: Yes Hypothyroidsim HEENT: No Cancer: No Psychosocial: Yes Depression Integumentary: No Blood Disorders: No Family Medical History Cancer, Diabetes Physical Exam Vital Signs Capillary Refill : Height, Weight, BMI Height: 5'3.00" Weight: 160lbs. 0oz. 72.220405sj; 42.00 BMI Method:Stated General Appearance: no apparent distress, other (disheveled appearance) HEENT: PERRL/EOMI, pharynx normal Neck: non-tender, full range of motion, supple, normal inspection Cardiovascular: normal peripheral pulses, regular rate, rhythm Respiratory: chest non-tender, lungs clear, normal breath sounds, no respiratory distress, no accessory muscle use Gastrointestinal: normal bowel sounds, non tender, soft, no pulsatile mass Back: no CVA tenderness Extremities: normal range of motion, non-tender, normal capillary refill Psychiatric: alert, oriented x 3 Crainal Nerves: normal hearing, normal speech, PERRL Coordination/Gait: normal gait Motor/Sensory: no motor deficit, no sensory deficit Skin: normal color, warm/dry Progress/Results/Core Measures Results/Orders My Orders Orders - MIGUELITO GUZMÁN MD Ketorolac Injection (Toradol Injection) (07/18/22 10:22) Diphenhydramine Injection (Benadryl Inje (07/18/22 10:22) Metoclopramide Injection (Reglan Injecti (07/18/22 10:22) Progress Progress Note : Progress Note Potential diagnosis of chronic migraine, atypical migraine, sinusitis, closed head injury, meningitis, intracranial hemorrhage. Patient is not exhibiting any worrisome signs for more severe condition than her typical migraine headache. She states that this feels like her usual migraine headache in terms of symptoms. She denies any head injury, fever, chills, neck pain. She was not having any new numbness or weakness in her arms or legs. Will administer ketorolac 30 mg IM with metoclopramide 10 mg IM with diphenhydramine 25 mg IM to help with her migraine headache. As she was not responding to her home medications this morning for her migraine will allow her to rest at home and let the intramuscular shots of medications help. She has had these several times in the past with multiple other emergency department visits and had good response with the medicines. Counseled on follow-up and return precautions. Advised she could use [id number] acetaminophen and/or ibuprofen if needed for pain in addition to the prescription medicines that she has. Continue on her routine prescription medications. Try to rest in a cool dark room. Follow-up through the clinic if having worsening symptoms or not improving. Departure Impression Primary Impression: Migraine headache without aura Qualified Codes: G43.009 - Migraine without aura, not intractable, without status migrainosus Disposition: HOME, SELF-CARE Condition: Stable Departure-Patient Inst. Decision time for Depature: 10:27 Referrals: SELFANDREW MD (PCP) Primary Care Physician Patient Instructions: Migraines in Adults Add. Discharge Instructions: Stay well hydrated and keep sipping on fluids. Rest in a cool dark room and let the medicine have a chance to work for your Migraine. Continue on your regular medicines at home. Check back with clinic for continued concerns. All discharge instructions reviewed with patient and/or family. Voiced understanding. MIGUELITO GUZMÁN MD Jul 18, 2022 10:28
== END 2022-07-18 10:33 | disposition home or self-care (01) ==
LOC: EDUNIT# 10:16 → ER FS 10:17
DX: G43.009 Migraine without aura, not intractable, without status migrainosus (principal)
CPT/HCPCS: 99284

== ENCOUNTER 2022-07-26 09:20 | Emergency (ER) | payer MEDICARE, MEDICAID ==
[2022-07-26 09:30] VITALS: BP 130/93
[2022-07-26] MEDS ORDERED: FAMOTIDINE 20 MG (PEPCID) TABLET PO STA (10:20)
--- NOTE | 2022-07-26 10:24 | ED GI ---
General Chief Complaint: Abdominal/GI Problems Stated Complaint: ABD PAIN; NAUSEA Source of Information: Patient Exam Limitations: No Limitations History of Present Illness Date Seen by Provider: Jul 26, 2022 Time Seen by Provider: 09:22 Initial Comments 42-year-old female well-known to this emergency department with past medical history of chronic migraines coming in due to nausea, nonbloody nonbilious vomiting, epigastric burning, and headache. This is been going on for 3 days, she feels like she has a GI bug. Her neighbor is sick with a similar illness which the patient has been around. Denies any fever, diarrhea, chest pain, shortness of breath, severe abdominal pain, or any other concerns. She has been tolerating fluids p.o. at home. Otherwise denying any other acute complaints Allergies and Home Medications Allergies Coded Allergies: zolmitriptan (Verified Adverse Reaction, Unknown, 09/29/19) Patient Home Medication List Home Medication List Reviewed: Yes Aspirin/Acetaminophen/Caffeine (Excedrin Migraine Caplet) 1 Each Tablet, 2 EACH PO Q6-8HR PRN for Headache, (Reported) Entered as Reported by: NATE ZHU on 07/01/20 0950 Cetirizine HCl (Cetirizine HCl) 10 Mg Tablet, 10 MG PO HS, (Reported) Entered as Reported by: DIXIE BROWN on 07/21/19 1516 Citalopram Hydrobromide (Citalopram HBr) 40 Mg Tablet, 40 MG PO HS, (Reported) Entered as Reported by: MALINDA KOCH on 04/02/19 0947 Clindamycin HCl (Clindamycin HCl) 300 Mg Capsule, 300 MG PO TID Prescribed by: DARCI ECHOLS on 03/08/22 1014 Ergocalciferol (Vitamin D2) (Vitamin D2) 1,250 Mcg Capsule, 1,250 MCG PO WEEK, (Reported) Entered as Reported by: NATE ZHU on 07/01/20 0950 Ferrous Sulfate (Ferrous Sulfate) 325 Mg Tablet, 325 MG PO DAILY, (Reported) Entered as Reported by: DIXIE BROWN on 07/21/19 1516 Fluconazole (Diflucan) 100 Mg Tablet, 100 MG PO DAILY Prescribed by: DARCI ECHOLS on 03/08/22 1014 Hydrocodone Bit/Acetaminophen (HYDROcodone/APAP 5 MG/325 MG TAB) 1 Tab Tab, 1 TAB PO Q4H PRN for PAIN-MODERATE (5-7) Prescribed by: OWEN VARELA on 07/13/20 1050 Hydrocodone/Acetaminophen (Hydrocodone-Acetamin 5-325 mg) 5 Mg-325 Mg Tablet, 1 TAB PO Q4H PRN for PAIN-MODERATE (5-7) Prescribed by: DARCI ECHOLS on 03/08/22 1015 Levothyroxine Sodium (Levothyroxine Sodium) 88 Mcg Tablet, 88 MCG PO DAILY, (Reported) Entered as Reported by: DIXIE BROWN on 07/21/19 1516 Montelukast Sodium (Montelukast Sodium) 10 Mg Tablet, 10 MG PO HS, (Reported) Entered as Reported by: MALINDA KOCH on 04/02/19 0947 Ondansetron (Ondansetron Odt) 8 Mg Tab.rapdis, 8 MG PO Q8H PRN for NAUSEA/VOMITING-1ST LINE, (Reported) Entered as Reported by: NATE ZHU on 07/01/20 0950 Ondansetron (Ondansetron Odt) 4 Mg Tab.rapdis, 4 MG PO Q6H Prescribed by: DARCI ECHOLS on 11/22/21 1037 Ondansetron (Ondansetron Odt) 4 Mg Tab.rapdis, 4 MG PO Q6H PRN for NAUSEA/VOMITING Prescribed by: MIGUELITO GUZMÁN on 02/13/22 1357 Pantoprazole Sodium (Protonix) 40 Mg Tablet.dr, 40 MG PO BID Prescribed by: OWEN VARELA on 07/13/20 1049 Potassium Chloride (Klor-Con 10) 10 Meq Tablet.er, 10 MEQ PO DAILY, (Reported) Entered as Reported by: NATE ZHU on 07/01/20 0950 Propranolol HCl (Propranolol HCl) 20 Mg Tablet, 20 MG PO BID, (Reported) Entered as Reported by: DIXIE BROWN on 07/21/19 1516 Sucralfate (Sucralfate) 1 Gm Tablet, 1 GM PO DAILY, (Reported) Entered as Reported by: MALINDA KOCH on 06/16/20 1014 Topiramate (Topiramate) 100 Mg Tablet, 100 MG PO TID, (Reported) Entered as Reported by: MALINDA KOCH on 04/02/19 0947 Review of Systems Review of Systems Constitutional: No fever EENTM: No Symptoms Reported Respiratory: No Symptoms Reported Cardiovascular: No Symptoms Reported Gastrointestinal: See HPI Past Vlovgev-Inbmym-Yowowz Hx Patient Social History Substance use?: No Immunizations Up To Date First/Initial COVID19 Vaccinat: denies Second COVID19 Vaccination Allen: denies Third COVID19 Vaccination Date: denies Seasonal Allergies Seasonal Allergies: Yes Past Medical History Surgery/Hospitalization HX: Migraine headaches Surgeries: Yes Gallbladder Respiratory: No Currently Using CPAP: No Currently Using BIPAP: No Cardiac: No Neurological: Yes Headaches /Migraines Genitourinary: No Gastrointestinal: Yes (chronic gastritis, pyloric stenosis) Musculoskeletal: No Endocrine: Yes Hypothyroidsim HEENT: No Cancer: No Psychosocial: Yes Depression Integumentary: No Blood Disorders: No Family Medical History Cancer, Diabetes Physical Exam Vital Signs Capillary Refill : Height/Weight/BMI Height: 5'3.00" Weight: 160lbs. 0oz. 72.857549au; 42.00 BMI Method:Stated General Appearance: WD/WN, no apparent distress HEENT: PERRL/EOMI, normal ENT inspection, pharynx normal Neck: non-tender, full range of motion, supple, normal inspection Respiratory: chest non-tender, lungs clear, normal breath sounds, no respiratory distress, no accessory muscle use Cardiovascular: regular rate, rhythm, no edema, no murmur Gastrointestinal: normal bowel sounds, non tender, soft; No distended, No guarding, No rebound Extremities: normal range of motion, non-tender, normal inspection, no pedal edema, no calf tenderness, normal capillary refill Back: normal inspection, no CVA tenderness Neurologic/Psychiatric: no motor/sensory deficits, normal mood/affect Skin: normal color, warm/dry Progress/Results/Core Measures Results/Orders My Orders Orders - TAZ GONZALEZ MD Metoclopramide Injection (Reglan Injecti (07/26/22 10:30) Diphenhydramine Injection (Benadryl Inje (07/26/22 10:30) Ketorolac Injection (Toradol Injection) (07/26/22 10:30) Famotidine Tablet (Pepcid Tablet) (07/26/22 10:20) Antacid Suspension (Mylanta Suspension (07/26/22 10:30) Progress Progress Note : Progress Note 42-year-old female with above history coming in due to GI upset and headache. ABCs were intact and vitals were stable on presentation. Physical exam reassuring including a soft and nontender abdomen. She has no red flags for headache, and feels similar to her typical headaches. Given her typical medications but added in Pepcid as well as Maalox for the GI upset. Likely viral nature, especially given her neighbor is sick as well and she has been around her. Given her abdominal exam is reassuring, did not order any labs or CT imaging. I believe she is otherwise stable for discharge with outpatient follow-up. She was sent home with strict return precautions Departure Impression Primary Impression: Vomiting in adult Additional Impressions: Headache Qualified Codes: G44.229 - Chronic tension-type headache, not intractable Epigastric pain Disposition: HOME, SELF-CARE Condition: Stable Departure-Patient Inst. Decision time for Depature: 10:45 Referrals: ANDREW DONAHUE MD (PCP) Primary Care Physician Patient Instructions: Gastritis ED Add. Discharge Instructions: This likely is a virus causing the nausea with the stomach upset. Take your normal medications, you can also add in Maalox to help with that. Most people been taking somewhere between 3 to 5 days to get better. Work/School Note: Work Release Form Date Seen in the Emergency Department: Jul 26, 2022 Return to Work: Jul 27, 2022 Restrictions: No Restrictions TAZ GONZALEZ MD Jul 26, 2022 10:24
[2022-07-26] MEDS ORDERED: ANTACID SUSP 30 ML UDC (MYLANTA) PO ONE (10:30)
[2022-07-26] MEDS ORDERED: METOCLOPRAMIDE INJ 10 MG/2 ML (REGLAN) IM ONE (10:30)
[2022-07-26] MEDS ORDERED: KETOROLAC 15 MG/ML VIAL IM ONE (10:30)
[2022-07-26] MEDS ORDERED: diphenhydrAMINE 50 MG/ML INJ (BENADRYL) IM ONE (10:30)
== END 2022-07-26 10:55 | disposition home or self-care (01) ==
LOC: EDUNIT# 09:20 → ER FS 09:21
DX: R11.2 Nausea with vomiting, unspecified (principal); R51.9 Headache, unspecified; R10.13 Epigastric pain; Z86.69 Personal history of other diseases of the nervous system and sense organs
CPT/HCPCS: 99284

== ENCOUNTER 2022-08-17 09:47 | Emergency (ER) | payer MEDICARE, MEDICAID ==
[~2022-08-17] VITALS: Ht 160 cm; Wt 102.5 kg
[2022-08-17] MEDS ORDERED: METOCLOPRAMIDE INJ 10 MG/2 ML (REGLAN) IM STA (09:52)
[2022-08-17] MEDS ORDERED: KETOROLAC 30 MG/ML VIAL IM STA (09:52)
[2022-08-17] MEDS ORDERED: diphenhydrAMINE 50 MG/ML INJ (BENADRYL) IM STA (09:52)
[2022-08-17 09:54] VITALS: BP 112/86
--- NOTE | 2022-08-17 09:56 | ED Headache ---
General Chief Complaint: Head/Cervical Problems Stated Complaint: HEADACHE Source: patient, old records Exam Limitations: no limitations History of Present Illness Date Seen by Provider: Aug 17, 2022 Time Seen by Provider: 09:50 Initial Comments 42-year-old female presenting with complaints of a migraine headache. She states this started around 2 AM this morning and feels like her typical migraines. She tried taking Excedrin Migraine and her prescription medicines at home without improvement in her pain and symptoms. She has had nausea but no vomiting. She has some photophobia. She denies any recent head injury or trauma. She has not been running a fever and she states that her headache is a 9 or 10 out of 10 and is diffuse. Timing/Duration: 4-6 hours Severity/Quality: severe, throbbing Location: other (generalized) Prior Headaches/Recent Trauma: chronic headaches Modifying Factors: worse with exposure to light Associated Symptoms: No confusion, No fatigue, No facial pain, No fever/chills, No flushing, No loss of consciousness; nausea/vomiting (nausea without emesis); No nasal congestion, No nasal drainage, No numbness in legs/feet, No rash, No seizures, No sinus infection, No stiff neck, No vision changes, No weakness Allergies and Home Medications Allergies Coded Allergies: zolmitriptan (Verified Adverse Reaction, Unknown, 09/29/19) Patient Home Medication List Home Medication List Reviewed: Yes Aspirin/Acetaminophen/Caffeine (Excedrin Migraine Caplet) 1 Each Tablet, 2 EACH PO Q6-8HR PRN for Headache, (Reported) Entered as Reported by: NATE ZHU on 07/01/20 0950 Cetirizine HCl (Cetirizine HCl) 10 Mg Tablet, 10 MG PO HS, (Reported) Entered as Reported by: DIXIE BROWN on 07/21/19 1516 Citalopram Hydrobromide (Citalopram HBr) 40 Mg Tablet, 40 MG PO HS, (Reported) Entered as Reported by: MALINDA KOCH on 04/02/19 0947 Clindamycin HCl (Clindamycin HCl) 300 Mg Capsule, 300 MG PO TID Prescribed by: DARCI ECHOLS on 03/08/22 1014 Ergocalciferol (Vitamin D2) (Vitamin D2) 1,250 Mcg Capsule, 1,250 MCG PO WEEK, (Reported) Entered as Reported by: NATE ZHU on 07/01/20 0950 Ferrous Sulfate (Ferrous Sulfate) 325 Mg Tablet, 325 MG PO DAILY, (Reported) Entered as Reported by: DIXIE BROWN on 07/21/19 1516 Fluconazole (Diflucan) 100 Mg Tablet, 100 MG PO DAILY Prescribed by: DARCI ECHOLS on 03/08/22 1014 Hydrocodone Bit/Acetaminophen (HYDROcodone/APAP 5 MG/325 MG TAB) 1 Tab Tab, 1 TAB PO Q4H PRN for PAIN-MODERATE (5-7) Prescribed by: OWEN VARELA on 07/13/20 1050 Hydrocodone/Acetaminophen (Hydrocodone-Acetamin 5-325 mg) 5 Mg-325 Mg Tablet, 1 TAB PO Q4H PRN for PAIN-MODERATE (5-7) Prescribed by: DARCI ECHOLS on 03/08/22 1015 Levothyroxine Sodium (Levothyroxine Sodium) 88 Mcg Tablet, 88 MCG PO DAILY, (Reported) Entered as Reported by: DIXIE BROWN on 07/21/19 1516 Montelukast Sodium (Montelukast Sodium) 10 Mg Tablet, 10 MG PO HS, (Reported) Entered as Reported by: MALINDA KOCH on 04/02/19 0947 Ondansetron (Ondansetron Odt) 8 Mg Tab.rapdis, 8 MG PO Q8H PRN for NAUSEA/VOMITING-1ST LINE, (Reported) Entered as Reported by: NATE ZHU on 07/01/20 0950 Ondansetron (Ondansetron Odt) 4 Mg Tab.rapdis, 4 MG PO Q6H Prescribed by: DARCI ECHOLS on 11/22/21 1037 Ondansetron (Ondansetron Odt) 4 Mg Tab.rapdis, 4 MG PO Q6H PRN for NAUSEA/VOMITING Prescribed by: MIGUELITO GUZMÁN on 02/13/22 1357 Pantoprazole Sodium (Protonix) 40 Mg Tablet.dr, 40 MG PO BID Prescribed by: OWEN VARELA on 07/13/20 1049 Potassium Chloride (Klor-Con 10) 10 Meq Tablet.er, 10 MEQ PO DAILY, (Reported) Entered as Reported by: NATE ZHU on 07/01/20 0950 Propranolol HCl (Propranolol HCl) 20 Mg Tablet, 20 MG PO BID, (Reported) Entered as Reported by: DIXIE BROWN on 07/21/19 1516 Sucralfate (Sucralfate) 1 Gm Tablet, 1 GM PO DAILY, (Reported) Entered as Reported by: MALINDA KOCH on 06/16/20 1014 Topiramate (Topiramate) 100 Mg Tablet, 100 MG PO TID, (Reported) Entered as Reported by: MALINDA KOCH on 04/02/19 0947 Review of Systems Review of Systems Constitutional: No chills, No fever Eyes: See HPI, Photophobia Ears, Nose, Mouth, Throat: see HPI Respiratory: no symptoms reported Cardiovascular: no symptoms reported Gastrointestinal: see HPI Genitourinary: no symptoms reported Musculoskeletal: No neck pain Skin: No rash Psychiatric/Neurological: Headache Past Xbqsdmd-Shryym-Owtlnl Hx Patient Social History Tobacco Use?: No Use of E-Cig and/or Vaping dev: No Substance use?: No Alcohol Use?: No Immunizations Up To Date First/Initial COVID19 Vaccinat: denies Second COVID19 Vaccination Allen: denies Third COVID19 Vaccination Date: denies Seasonal Allergies Seasonal Allergies: Yes Past Medical History Surgery/Hospitalization HX: Migraine headaches Surgeries: Yes Gallbladder Respiratory: No Currently Using CPAP: No Currently Using BIPAP: No Cardiac: No Neurological: Yes Headaches /Migraines Genitourinary: No Gastrointestinal: Yes (chronic gastritis, pyloric stenosis) Musculoskeletal: No Endocrine: Yes Hypothyroidsim HEENT: No Cancer: No Psychosocial: Yes Depression Integumentary: No Blood Disorders: No Family Medical History Cancer, Diabetes Physical Exam Vital Signs Capillary Refill : Height, Weight, BMI Height: 5'3.00" Weight: 160lbs. 0oz. [id number]; 42.00 BMI Method:Stated General Appearance: no apparent distress HEENT: PERRL/EOMI, pharynx normal Neck: non-tender, full range of motion, supple, normal inspection Cardiovascular: normal peripheral pulses, regular rate, rhythm Respiratory: chest non-tender, lungs clear, normal breath sounds, no respiratory distress, no accessory muscle use Psychiatric: alert, oriented x 3 Crainal Nerves: normal hearing, normal speech, PERRL Coordination/Gait: normal gait Motor/Sensory: no motor deficit, no sensory deficit Skin: normal color, warm/dry Progress/Results/Core Measures Results/Orders My Orders Orders - MIGUELITO GUZMÁN MD Ketorolac Injection (Toradol Injection) (08/17/22 09:52) Diphenhydramine Injection (Benadryl Inje (08/17/22 09:52) Metoclopramide Injection (Reglan Injecti (08/17/22 09:52) Progress Progress Note : Progress Note Potential diagnosis of migraine headache, tension headache, sinus headache, viral syndrome. Patient reports that this feels like her typical migraine headache and is not having any atypical or new symptoms. It started at 2 this morning and was not responding to her home medicines including narq-zrm-nwiajem Excedrin Migraine. In the past when she has had a migraine bad enough to come to the emergency department she has received injections of migraine cocktail including Toradol, Benadryl, Reglan. She was requesting these medications again today since her home medicines have not resolved her migraine. We will order Toradol 30 mg IM, diphenhydramine 50 mg IM, metoclopramide 10 mg IM. Encourage patient to rest in a cool dark room. Continue her regular medications as prescribed. Follow-up with the clinic for continued concerns. Departure Impression Primary Impression: Migraine headache without aura Qualified Codes: G43.009 - Migraine without aura, not intractable, without status migrainosus Disposition: 01 HOME, SELF-CARE Condition: Stable Departure-Patient Inst. Decision time for Depature: 09:56 Referrals: ANDREW DONAHUE MD (PCP) Primary Care Physician Patient Instructions: Migraines (DC) Add. Discharge Instructions: Rest in a cool dark room. Continue taking your regular medicines. Follow up with clinic for continued concerns All discharge instructions reviewed with patient and/or family. Voiced understanding. MIGUELITO GUZMÁN MD Aug 17, 2022 09:56
[2022-08-17] MEDS ORDERED: SUCR1TAB PO (12:45)
[2022-08-17] MEDS ORDERED: ONDA4TAB11 SL (13:11)
== END 2022-08-17 10:05 | disposition home or self-care (01) ==
LOC: EDUNIT# 09:47 → ER FS 09:49
DX: G43.009 Migraine without aura, not intractable, without status migrainosus (principal)
CPT/HCPCS: 99284

== ENCOUNTER 2022-08-17 11:42 | Emergency (ER) | payer MEDICARE, MEDICAID ==
[~2022-08-17] VITALS: Ht 160 cm; Wt 102.5 kg
[2022-08-17] MEDS ORDERED: ONDANSETRON 4 MG (ZOFRAN) ORAL DISSOLVE TAB PO STA ×2 (11:44→13:07)
[2022-08-17] MEDS ORDERED: SUCRALFATE 1 GM (CARAFATE) TAB PO STA (11:44)
[2022-08-17] MEDS ORDERED: FAMOTIDINE 20 MG (PEPCID) TABLET PO STA (11:44)
--- NOTE | 2022-08-17 11:56 | ED GI ---
General Chief Complaint: Abdominal/GI Problems Stated Complaint: DIZZINESS Source of Information: Patient, EMS, Old Records (Hospitalist notes and notes from Dr. Roger, general surgeon, from hospital admit July 2020.) History of Present Illness Date Seen by Provider: Aug 17, 2022 Time Seen by Provider: 11:42 Initial Comments 42-year-old female presenting by EMS to the emergency department with complaints of over 2 weeks of epigastric abdominal pain that has not improved. She has not tried to be seen in the clinic because her primary care provider was not available. She did not try to get him with any of the other [facility] enter providers. She was seen here in the emergency department at the end of July. She states that she has not improved since then. She was here in the emergency department already this morning just 2 hours prior to returning by EMS. At that time she complained only of migraine headache that feels like her typical chronic migraine headaches. She did not mention having any other medical concerns or problems that would require an emergency department visit. She states that her symptoms or not worse and there is nothing more severe going on with her epigastric pain today but because it had not improved over the 2 weeks she called EMS to bring her back to the emergency department. She does have a history of pyloric stenosis requiring dilatation and partial gastrectomy in July 2020. She denies following up since then and has not had recurrent EGD since the surgery. Timing/Duration: Other (over 2 weeks and reports it has just not improved) Severity/Quality: Moderate, Cramping Location: Epigastric Radiation: RUQ, LUQ, Epigastric Activities at Onset: None Modifying Factors: Worsens With Eating Associated Symptoms: No Back Pain, No Chest Pain, No Diaphoresis, No Fever/Chills, No Fatigue; Headache (chronic migraine headache this am), Heartburn, Nausea/Vomiting (nausea without emesis); No Rash, No Shortness of Air, No Swelling/Mass in Abdomen, No Syncope, No Weakness Allergies and Home Medications Allergies Coded Allergies: zolmitriptan (Verified Adverse Reaction, Unknown, 09/29/19) Patient Home Medication List Home Medication List Reviewed: Yes Aspirin/Acetaminophen/Caffeine (Excedrin Migraine Caplet) 1 Each Tablet, 2 EACH PO Q6-8HR PRN for Headache, (Reported) Entered as Reported by: NATE ZHU on 07/01/20 0950 Cetirizine HCl (Cetirizine HCl) 10 Mg Tablet, 10 MG PO HS, (Reported) Entered as Reported by: DIXIE BROWN on 07/21/19 1516 Citalopram Hydrobromide (Citalopram HBr) 40 Mg Tablet, 40 MG PO HS, (Reported) Entered as Reported by: MALINDA KOCH on 04/02/19 0947 Clindamycin HCl (Clindamycin HCl) 300 Mg Capsule, 300 MG PO TID Prescribed by: DARCI ECHOLS on 03/08/22 1014 Ergocalciferol (Vitamin D2) (Vitamin D2) 1,250 Mcg Capsule, 1,250 MCG PO WEEK, (Reported) Entered as Reported by: NATE ZHU on 07/01/20 0950 Ferrous Sulfate (Ferrous Sulfate) 325 Mg Tablet, 325 MG PO DAILY, (Reported) Entered as Reported by: DIXIE BROWN on 07/21/19 1516 Fluconazole (Diflucan) 100 Mg Tablet, 100 MG PO DAILY Prescribed by: DARCI ECHOLS on 03/08/22 1014 Hydrocodone Bit/Acetaminophen (HYDROcodone/APAP 5 MG/325 MG TAB) 1 Tab Tab, 1 TAB PO Q4H PRN for PAIN-MODERATE (5-7) Prescribed by: OWEN VARELA on 07/13/20 1050 Hydrocodone/Acetaminophen (Hydrocodone-Acetamin 5-325 mg) 5 Mg-325 Mg Tablet, 1 TAB PO Q4H PRN for PAIN-MODERATE (5-7) Prescribed by: DARCI ECHOLS on 03/08/22 1015 Levothyroxine Sodium (Levothyroxine Sodium) 88 Mcg Tablet, 88 MCG PO DAILY, (Reported) Entered as Reported by: DIXIE BROWN on 07/21/19 1516 Montelukast Sodium (Montelukast Sodium) 10 Mg Tablet, 10 MG PO HS, (Reported) Entered as Reported by: MALINDA KOCH on 04/02/19 0947 Ondansetron (Ondansetron Odt) 8 Mg Tab.rapdis, 8 MG PO Q8H PRN for NAUSEA/VOMITING-1ST LINE, (Reported) Entered as Reported by: NATE ZHU on 07/01/20 0950 Ondansetron (Ondansetron Odt) 4 Mg Tab.rapdis, 4 MG PO Q6H Prescribed by: DARCI ECHOLS on 11/22/21 1037 Ondansetron (Ondansetron Odt) 4 Mg Tab.rapdis, 4 MG PO Q6H PRN for NAUSEA/VOMITING Prescribed by: MIGUELITO GUZMÁN on 02/13/22 1357 Ondansetron (Ondansetron Odt) 4 Mg Tab.rapdis, 4 MG SL Q6H PRN for NAUSEA/VOMITING Prescribed by: MIGUELITO GUZMÁN on 08/17/22 1311 Pantoprazole Sodium (Protonix) 40 Mg Tablet.dr, 40 MG PO BID Prescribed by: OWEN VARELA on 07/13/20 1049 Potassium Chloride (Klor-Con 10) 10 Meq Tablet.er, 10 MEQ PO DAILY, (Reported) Entered as Reported by: NATE ZHU on 07/01/20 0950 Propranolol HCl (Propranolol HCl) 20 Mg Tablet, 20 MG PO BID, (Reported) Entered as Reported by: DIXIE BROWN on 07/21/19 1516 Sucralfate (Sucralfate) 1 Gm Tablet, 1 GM PO DAILY, (Reported) Entered as Reported by: MALINDA KOCH on 06/16/20 1014 Sucralfate (Sucralfate) 1 Gram Tablet, 1 GM PO ACHS Prescribed by: MIGUELITO GUZMÁN on 08/17/22 1245 Topiramate (Topiramate) 100 Mg Tablet, 100 MG PO TID, (Reported) Entered as Reported by: MALINDA KOCH on 04/02/19 0947 Review of Systems Review of Systems Constitutional: No chills; dizziness (since getting injections 2 hours ago for migraine headache she feels dizzy); No fever EENTM: See HPI (had photophobia earlier with migraine headache but that is better now) Respiratory: No Symptoms Reported Cardiovascular: No Symptoms Reported Gastrointestinal: See HPI Genitourinary: No Symptoms Reported Musculoskeletal: no symptoms reported Skin: no symptoms reported Psychiatric/Neurological: See HPI Endocrine: No Symptoms Reported Past Xcsnmji-Sksmse-Rougua Hx Patient Social History Tobacco Use?: No Use of E-Cig and/or Vaping dev: No Substance use?: No Alcohol Use?: No Pt feels they are or have been: No Immunizations Up To Date Influenza Vaccine Up-to-Date: No; Not Current First/Initial COVID19 Vaccinat: denies Second COVID19 Vaccination Allen: denies Third COVID19 Vaccination Date: denies Seasonal Allergies Seasonal Allergies: Yes Past Medical History Surgery/Hospitalization HX: Migraine headaches, Pyloric Stenosis, Partial Gastrectomy with Bilroth I procedure 07/[address] Roger Surgeries: Yes Abdominal (Distal Gastrectomy with Bilroth I procedure 07/2020), Gallbladder Respiratory: No Currently Using CPAP: No Currently Using BIPAP: No Cardiac: No Neurological: Yes Headaches /Migraines Genitourinary: No Gastrointestinal: Yes (chronic gastritis, pyloric stenosis) Musculoskeletal: No Endocrine: Yes Hypothyroidsim HEENT: No Cancer: No Psychosocial: Yes Depression Integumentary: No Blood Disorders: No Family Medical History Cancer, Diabetes Physical Exam Vital Signs Vital Signs - First Documented 08/17/22 11:42 Temp 36.6 Pulse 84 Resp 14 B/P (MAP) 125/78 (94) Pulse Ox 96 O2 Delivery Room Air Capillary Refill : Height/Weight/BMI Height: 5'3.00" Weight: 160lbs. 0oz. [id number]; 40.00 BMI Method:Stated General Appearance: no apparent distress, obese, other (disheveled appearance and wearing the same clothes from visit 2 hours prior) HEENT: PERRL/EOMI, pharynx normal Neck: non-tender, full range of motion, supple, normal inspection Respiratory: chest non-tender, lungs clear, normal breath sounds, no respiratory distress, no accessory muscle use Cardiovascular: normal peripheral pulses, regular rate, rhythm Gastrointestinal: normal bowel sounds, soft, no pulsatile mass; No distended, No guarding, No rebound; tenderness (complaint of tenderness to palpation of epigastric area ) Rectal: deferred Extremities: normal range of motion, non-tender, normal capillary refill Neurologic/Psychiatric: alert, oriented x 3 Skin: normal color, warm/dry Images 1 - complaint of epigastric pain with palpation and states pain in RUQ and LUQ at times Progress/Results/Core Measures Results/Orders Lab Results Laboratory Tests Test 08/17/22 11:48 Range/Units White Blood Count 11.7 H 4.3-11.0 10^3/uL Red Blood Count 5.07 3.80-5.11 10^6/uL Hemoglobin 15.1 11.5-16.0 g/dL Hematocrit 44 35-52 % Mean Corpuscular Volume 88 80-99 fL Mean Corpuscular Hemoglobin 30 25-34 pg Mean Corpuscular Hemoglobin Concent 34 32-36 g/dL Red Cell Distribution Width 13.1 10.0-14.5 % Platelet Count 413 H 130-400 10^3/uL Mean Platelet Volume 8.9 L 9.0-12.2 fL Immature Granulocyte % (Auto) 0 % Neutrophils (%) (Auto) 82 H 42-75 % Lymphocytes (%) (Auto) 14 12-44 % Monocytes (%) (Auto) 3 0-12 % Eosinophils (%) (Auto) 1 0-10 % Basophils (%) (Auto) 0 0-10 % Neutrophils # (Auto) 9.6 H 1.8-7.8 10^3/uL Lymphocytes # (Auto) 1.6 1.0-4.0 10^3/uL Monocytes # (Auto) 0.4 0.0-1.0 10^3/uL Eosinophils # (Auto) 0.1 0.0-0.3 10^3/uL Basophils # (Auto) 0.0 0.0-0.1 10^3/uL Immature Granulocyte # (Auto) 0.0 0.0-0.1 10^3/uL Sodium Level 136 135-145 MMOL/L Potassium Level 2.8 L 3.6-5.0 MMOL/L Chloride Level 97 L 98-107 MMOL/L Carbon Dioxide Level 24 21-32 MMOL/L Anion Gap 15 H 5-14 MMOL/L Blood Urea Nitrogen 25 H 7-18 MG/DL Creatinine 1.41 H 0.60-1.30 MG/DL Estimat Glomerular Filtration Rate 47 BUN/Creatinine Ratio 18 Glucose Level 133 H 70-105 MG/DL Calcium Level 9.2 8.5-10.1 MG/DL Corrected Calcium 9.1 8.5-10.1 MG/DL Total Bilirubin 0.3 0.1-1.0 MG/DL Aspartate Amino Transf (AST/SGOT) 24 5-34 U/L Alanine Aminotransferase (ALT/SGPT) 22 0-55 U/L Alkaline Phosphatase 169 H 40-136 U/L Total Protein 7.7 6.4-8.2 GM/DL Albumin 4.1 3.2-4.5 GM/DL Lipase 28 8-78 U/L My Orders Orders - MIGUELITO GUZMÁN MD Comprehensive Metabolic Panel (08/17/22 11:44) Lipase (08/17/22 11:44) Acute Abd Series (08/17/22 11:44) Cbc With Automated Diff (08/17/22 11:44) Famotidine Tablet (Pepcid Tablet) (08/17/22 11:44) Sucralfate Tablet (Carafate Tablet) (08/17/22 11:44) Ondansetron Oral Dissolve Tab (Zofran (08/17/22 11:44) Potassium Chloride (Tablet) (K Dur Table (08/17/22 12:40) Ondansetron Oral Dissolve Tab (Zofran (08/17/22 13:07) Vital Signs/I&O 08/17/22 08/17/22 11:42 13:24 Temp 36.6 Pulse 84 65 Resp 14 16 B/P (MAP) 125/78 (94) 117/77 Pulse Ox 96 98 O2 Delivery Room Air Room Air Progress Progress Note #1: Progress Note Potential diagnosis of gastritis, peptic ulcer disease, recurrent pyloric stenosis, viral gastroenteritis, constipation, colitis, diverticulitis. Order acute abdomen series to evaluate for obstruction, constipation, p erforation or free air. Send labs to look at complete blood count, comprehensive metabolic profile, lipase. Administer Pepcid or famotidine 20 mg p.o. x1 for acid and gastritis, Carafate 1 g p.o for acid and gastritis, Zofran 4 mg ODT for nausea. Advised patient that she likely will need to follow-up with the surgery clinic for an EGD but her exam and vital signs are not indicating need for acute emergent EGD. Advised she may need to see other provider in [facility] if her PCP is not in the office. Progress Note #2: Time: 12:24 Progress Note On my personal interpretation and review of the acute abdomen series of x-rays she has some increased stool and gas present throughout her colon. There is no obstruction, blockage, free air. Progress Note #3: Time: 13:00 Progress Note I reviewed the radiologist report on the acute abdomen series and they did not appreciate any acute process. Her complete blood count had white blood cell count at upper limit of normal at 11.7. She did not have a left shift. Her hemoglobin was good at 15.1 not showing severe anemia. Her comprehensive metabolic profile showed low potassium at 2.8. Her renal function showed some renal insufficiency with a BUN of 25 which could also be related to dehydration and a creatinine of 1.4. Her glucose was okay at 133. Her lipase was normal at 28. Patient had not provided a urine specimen while here in the ED. I did or natan 40 mill equivalents of potassium by mouth to help with her hypokalemia. Patient states that she takes potassium every night when she goes to bed for low potassium level. Advised patient to increase her nightly dose to 2 pills of the potassium for the next 5 days. Encouraged her to take Carafate 1 g 4 times a day to help with possible gastritis. Check with Dr. Roger from the surgery clinic about follow-up for recurrent EGD since she was having pain and has had prior surgery with stenosis and partial gastrectomy. Encouraged to follow a liquid diet for 24 hours and then she could advance to a bland ulcer type diet. Given a handout about a bland ulcer diet. Patient requested the dissolving Zofran tablets to help with nausea at home so a prescription was sent for 5 days worth of this. Again encouraged to follow-up with her primary care provider as well as Dr. Roger. By requested that she be seen in the next 1 to 2 weeks to have repeat labs to see if her potassium is coming up to normal. If it was still really low then her PCP may want to continue with the higher dose of po tassium chronically. Diagnostic Imaging Diagonstic Imaging: Xray Plain Films/CT/US/NM/MRI: abdomen Comments [facility], [place] NAME: MITCH ECHOLS [facility] REC#: [id number] PT STATUS: REG ER : 1980 PHYSICIAN: MIGUELITO GUZMÁN MD ADMIT DATE: 08/17/22/ER FS Draft Date of Exam:08/17/22 ACUTE ABD SERIES INDICATION: Epigastric pain. TECHNIQUE: Abdominal series obtained with frontal chest radiograph and supine and upright abdominal films. FINDINGS: Heart and mediastinal silhouette are normal in appearance. The lungs are clear. There is no pneumothorax or pleural fluid. There is no free intraperitoneal air. There are surgical clips in the right upper quadrant. The abdominal bowel gas pattern is unremarkable. IMPRESSION: Unremarkable abdominal series. Dictated on workstation # [id number] Dict: 08/17/22 1223 Trans: 08/17/22 1231 [id number] Interpreted by: AUSTEN JUSTICE MD Electronically signed by: Reviewed: Reviewed by Me Departure Impression Primary Impression: Epigastric abdominal pain Additional Impression: Hypokalemia Disposition: HOME, SELF-CARE Condition: Stable Departure-Patient Inst. Decision time for Depature: 13:08 Referrals: ANDREW DONAHUE MD (PCP) Primary Care Physician JOSE ROGER DO Patient Instructions: Abdominal Pain, Adult ED, Gastritis ED, High Potassium Diet, Ulcer and Gastritis Diet Add. Discharge Instructions: Follow a liquid diet for next 24 hours then advance to bland diet and avoid spicy or greasy foods. Follow up with provider from [facility] for continued evaluation and treatment. Call Dr. Roger's office about setting up follow up and EGD for your abdominal pain Increase your potassium that you take at night from 1 pill to 2 pills for the next 5 days. See about having your blood rechecked next 1 or 2 weeks with [facility] so they can see if you need to take the increased dose of potassium every day or if those 5 days was enough All discharge instructions reviewed with patient and/or family. Voiced understanding. Scripts Ondansetron (Ondansetron Odt) 4 Mg Tab.rapdis 4 MG SL Q6H PRN for NAUSEA/VOMITING for 5 Days, #20 TAB 0 Refills Prov: MIGUELITO GUZMÁN MD 08/17/22 Sucralfate (Sucralfate) 1 Gram Tablet 1 GM PO ACHS for gastritis for 30 Days, #120 TAB 1 Refill Chew tablet to a slurry and then swallow Prov: MIGUELITO GUZMÁN MD 08/17/22 MIGUELITO GUZMÁN MD Aug 17, 2022 11:56
[2022-08-17 12:13] LABS: BASOPHILS % (AUTO) 0 % (0-10); EOSINOPHILS # (AUTO) 0.1 10^3/uL (0.0-0.3); EOSINOPHILS % (AUTO) 1 % (0-10); HEMATOCRIT 44 % (35-52); HEMOGLOBIN 15.1 g/dL (11.5-16.0); LYMPHOCYTES # (AUTO) 1.6 10^3/uL (1.0-4.0); LYMPHOCYTES % (AUTO) 14 % (12-44); MEAN CORPUSCULAR HEMOGLOBIN 30 pg (25-34); MEAN CORPUSCULAR HGB CONC 34 g/dL (32-36); MEAN CORPUSCULAR VOLUME 88 fL (80-99); MEAN PLATELET VOLUME 8.9 fL (9.0-12.2); MONOCYTES # (AUTO) 0.4 10^3/uL (0.0-1.0); MONOCYTES % (AUTO) 3 % (0-12); NEUTROPHILS # (AUTO) 9.6 10^3/uL (1.8-7.8); NEUTROPHILS % (AUTO) 82 % (42-75); PLATELET COUNT 413 10^3/uL (130-400); WHITE BLOOD COUNT 11.7 10^3/uL (4.3-11.0)
--- NOTE | 2022-08-17 12:31 | Diagnostic Imaging Report ---
INDICATION: Epigastric pain. TECHNIQUE: Abdominal series obtained with frontal chest radiograph and supine and upright abdominal films. FINDINGS: Heart and mediastinal silhouette are normal in appearance. The lungs are clear. There is no pneumothorax or pleural fluid. There is no free intraperitoneal air. There are surgical clips in the right upper quadrant. The abdominal bowel gas pattern is unremarkable. IMPRESSION: Unremarkable abdominal series. Dictated by: Dictated on workstation # [id number]
[2022-08-17 12:32] LABS: POTASSIUM 2.8 MMOL/L (3.6-5.0)
[2022-08-17 12:33] LABS: ALBUMIN 4.1 GM/DL (3.2-4.5); BILIRUBIN,TOTAL 0.3 MG/DL (0.1-1.0); CALCIUM 9.2 MG/DL (8.5-10.1); CREATININE SERUM 1.41 MG/DL (0.60-1.30); TOTAL PROTEIN 7.7 GM/DL (6.4-8.2)
[2022-08-17] MEDS ORDERED: KCL 20 MEQ TAB (K-DUR) PO STA (12:40)
[2022-08-17] MEDS ORDERED: SUCR1TAB PO (12:45)
[2022-08-17] MEDS ORDERED: ONDA4TAB11 SL (13:11)
[2022-08-17 13:24] VITALS: BP 117/77
== END 2022-08-17 13:24 | disposition home or self-care (01) ==
LOC: ER FS 11:42 → EDUNIT# 11:42 → ER FS 13:24
DX: R10.13 Epigastric pain (principal); E87.6 Hypokalemia; R11.0 Nausea; Z87.19 Personal history of other diseases of the digestive system; Z90.49 Acquired absence of other specified parts of digestive tract; Z28.310 Unvaccinated for COVID-19
CPT/HCPCS: 36415; 74022; 80053; 83690; 85025

== ENCOUNTER 2022-08-30 05:44 | Outpatient (CLI) | payer MEDICARE, MEDICAID ==
[~2022-08-30] VITALS: Ht 160 cm; Wt 100.7 kg
[~2022-08-30 05:44] MED LIST changes: +ONDA4TAB11 SL
[2022-09-01] MEDS ORDERED: ATOG10TA PO (09:31)
== END 2022-09-01 09:34 | disposition home or self-care (01) ==
LOC: PREOP 05:44
PROVIDERS: ATTEND Surgery
DX: Z01.818 Encounter for other preprocedural examination (principal)

== ENCOUNTER 2022-09-03 09:08 | Emergency (ER) | payer MEDICARE, MEDICAID ==
[~2022-09-03] VITALS: Ht 160 cm; Wt 102.1 kg
[~2022-09-03 09:08] MED LIST changes: +ATOG10TA PO
[2022-09-03 09:15] VITALS: BP 134/95
--- NOTE | 2022-09-03 09:24 | ED EENT ---
History of Present Illness General Chief Complaint: Ear Problems Stated Complaint: RIGHT EARACHE/COUGH/NAUSEA History of Present Illness Date Seen by Provider: Sep 03, 2022 Time Seen by Provider: 09:19 Initial Comments 42-year-old female with PMH of GERD/migraine/hysterectomy/cholecystectomy, is here with complaints of cough, sinus and nasal drainage, nausea, lack of appetite, malaise for the past 2 weeks. Patient has not seen her PCP. Denies fever and chills, abdominal pain, chest pain, shortness of breath. No known sick contacts. Patient does not work but is on disability. Allergies and Home Medications Allergies Coded Allergies: zolmitriptan (Verified Adverse Reaction, Unknown, 09/29/19) Patient Home Medication List Home Medication List Reviewed: Yes Aspirin/Acetaminophen/Caffeine (Excedrin Migraine Caplet) 1 Each Tablet, 2 EACH PO Q6-8HR PRN for Headache, (Reported) Entered as Reported by: NATE ZHU on 07/01/20 0950 Atogepant (Qulipta) 10 Mg Tablet, 10 MG PO, (Reported) Entered as Reported by: ARLETTE FRYE on 09/01/22 0931 Cetirizine HCl (Cetirizine HCl) 10 Mg Tablet, 10 MG PO HS, (Reported) Entered as Reported by: DIXIE BROWN on 07/21/19 1516 Citalopram Hydrobromide (Citalopram HBr) 40 Mg Tablet, 40 MG PO HS, (Reported) Entered as Reported by: MALINDA KOCH on 04/02/19 0947 Ferrous Sulfate (Ferrous Sulfate) 325 Mg Tablet, 325 MG PO DAILY, (Reported) Entered as Reported by: DIXIE BROWN on 07/21/19 1516 Fluconazole (Diflucan) 100 Mg Tablet, 100 MG PO DAILY Prescribed by: DARCI ECHOLS on 03/08/22 1014 Levothyroxine Sodium (Levothyroxine Sodium) 88 Mcg Tablet, 88 MCG PO DAILY, (Reported) Entered as Reported by: DIXIE BROWN on 07/21/19 1516 Montelukast Sodium (Montelukast Sodium) 10 Mg Tablet, 10 MG PO HS, (Reported) Entered as Reported by: MALINDA KOCH on 04/02/19 0947 Ondansetron (Ondansetron Odt) 8 Mg Tab.rapdis, 8 MG PO Q8H PRN for NAUSEA/VOM ITING-1ST LINE, (Reported) Entered as Reported by: NATE ZHU on 07/01/20 0950 Pantoprazole Sodium (Protonix) 40 Mg Tablet.dr, 40 MG PO BID Prescribed by: OWEN VARELA on 07/13/20 1049 Potassium Chloride (Klor-Con 10) 10 Meq Tablet.er, 10 MEQ PO DAILY, (Reported) Entered as Reported by: NATE ZHU on 07/01/20 0950 Propranolol HCl (Propranolol HCl) 20 Mg Tablet, 20 MG PO BID, (Reported) Entered as Reported by: DIXIE BROWN on 07/21/19 1516 Sucralfate (Sucralfate) 1 Gram Tablet, 1 GM PO ACHS Prescribed by: MIGUELITO GUZMÁN on 08/17/22 1245 Topiramate (Topiramate) 100 Mg Tablet, 100 MG PO TID, (Reported) Entered as Reported by: MALINDA KOCH on 04/02/19 0947 Discontinued Medications Clindamycin HCl (Clindamycin HCl) 300 Mg Capsule, 300 MG PO TID Discontinued Reason: No Longer Taking Prescribed by: DARCI ECHOLS on 03/08/22 1014 Ergocalciferol (Vitamin D2) (Vitamin D2) 1,250 Mcg Capsule, 1,250 MCG PO WEEK, (Reported) Discontinued Reason: No Longer Taking Entered as Reported by: NATE ZHU on 07/01/20 0950 Hydrocodone Bit/Acetaminophen (HYDROcodone/APAP 5 MG/325 MG TAB) 1 Tab Tab, 1 TAB PO Q4H PRN for PAIN-MODERATE (5-7) Discontinued Reason: No Longer Taking Prescribed by: OWEN VARELA on 07/13/20 1050 Hydrocodone/Acetaminophen (Hydrocodone-Acetamin 5-325 mg) 5 Mg-325 Mg Tablet, 1 TAB PO Q4H PRN for PAIN-MODERATE (5-7) Discontinued Reason: No Longer Taking Prescribed by: DARCI ECHOLS on 03/08/22 1015 Ondansetron (Ondansetron Odt) 4 Mg Tab.rapdis, 4 MG PO Q6H Discontinued Reason: No Longer Taking Prescribed by: DARCI ECHOLS on 11/22/21 1037 Ondansetron (Ondansetron Odt) 4 Mg Tab.rapdis, 4 MG PO Q6H PRN for NAUSEA/VOMITING Discontinued Reason: No Longer Taking Prescribed by: MIGUELITO Gaffney ENYART on 02/13/22 1357 Ondansetron (Ondansetron Odt) 4 Mg Tab.rapdis, 4 MG SL Q6H PRN for NAUSEA/VOMITING Discontinued Reason: No Longer Taking Prescribed by: MIGUELITO Gaffney ENYART on 08/17/22 1311 Sucralfate (Sucralfate) 1 Gm Tablet, 1 GM PO DAILY, (Reported) Discontinued Reason: No Longer Taking Entered as Reported by: MALINDA KOCH on 06/16/20 1014 Review of Systems Review of Systems Constitutional: malaise Eyes: No Symptoms Reported Ears: No Symptoms Reported Nose: congestion Mouth: no symptoms reported Throat: no symptoms reported Respiratory: cough Cardiovascular: no symptoms reported Gastrointestinal: diarrhea, nausea Musculoskeletal: no symptoms reported Skin: no symptoms reported Hematologic/Lymphatic: No Symptoms Reported Immunological/Allergic: no symptoms reported Past Ylhsmrw-Gadrdc-Aemdhn Hx Patient Social History Tobacco Use?: No Use of E-Cig and/or Vaping dev: No Substance use?: No Alcohol Use?: No Pt feels they are or have been: No Immunizations Up To Date First/Initial COVID19 Vaccinat: n/a Second COVID19 Vaccination Allen: n/a Third COVID19 Vaccination Date: n/a Seasonal Allergies Seasonal Allergies: Yes Past Medical History Surgery/Hospitalization HX: Migraine headaches, Pyloric Stenosis, Partial Gastrectomy with Bilroth Iprocedure 07/[address] 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 0oz. 72.866625gb; 39.33 BMI Method:Stated General Appearance: WD/WN, no apparent distress, obese Eyes: bilateral eye normal inspection, bilateral eye PERRL, bilateral eye EOMI Ears: bilateral ear auricle normal, bilateral ear other (Ear canal occluded with wax bilaterally) Nose: normal inspection, sinus tenderness (Bilateral maxillary and frontal sinuses) Neck: non-tender, full range of motion, supple, normal inspection Cardiovascular: normal peripheral pulses, no edema Respiratory: chest non-tender, lungs clear, normal breath sounds, no respiratory distress Gastrointestinal: normal bowel sounds, non tender, soft Neurologic/Psychiatric: alert, normal mood/affect, oriented x 3 Skin: normal color Progress/Results/Core Measures Results/Orders Lab Results Laboratory Tests Test 09/03/22 09:30 09/03/22 09:40 Range/Units Influenza Type A (RT-PCR) Not Detected Not Detecte Influenza Type B (RT-PCR) Not Detected Not Detecte SARS-CoV-2 RNA (RT-PCR) Not Detected Not Detecte Urine Color YELLOW Urine Clarity CLEAR Urine pH 7.0 5-9 Urine Specific Lisman 1.025 H 1.016-1.022 Urine Protein TRACE H NEGATIVE Urine Glucose (UA) NEGATIVE NEGATIVE Urine Ketones 1+ H NEGATIVE Urine Nitrite POSITIVE H NEGATIVE Urine Bilirubin 1+ H NEGATIVE Urine Urobilinogen 0.2 < = 1.0 MG/DL Urine Leukocyte Esterase NEGATIVE NEGATIVE Urine RBC (Auto) NEGATIVE NEGATIVE Urine RBC NONE /HPF Urine WBC 5-10 H /HPF Urine Crystals NONE /LPF Urine Bacteria LARGE H /HPF Urine Casts NONE /LPF Urine Mucus MODERATE H /LPF Urine Culture Indicated YES My Orders Orders - HARRISON SWAIN MD Covid 19 Inhouse Test (09/03/22 09:24) Influenza A And B By Pcr (09/03/22 09:24) Ketorolac Injection (Toradol Injection) (09/03/22 09:30) Drug Screen Stat (Urine) (09/03/22 09:34) Ua Culture If Indicated (09/03/22 09:34) Urine Culture (09/03/22 09:40) Medications Given in ED Current Medications Medications Dose Ordered Sig/Hernan Route Start Time Stop Time Status Last Admin Dose Admin Ketorolac Tromethamine 30 mg ONCE ONCE IM 09/03/22 09:30 09/03/22 09:32 DC 4/2/23 09:35 30 MG Vital Signs/I&O 09/03/22 09:15 Temp 36.6 Pulse 106 Resp 18 B/P (MAP) 134/95 (108) Pulse Ox 96 O2 Delivery Room Air Progress Progress Note : Progress Note 1. VIRAL SYNDROME: - COVID test/ Rapid Flu Test: negative - Toradol im STAT -Advised Tylenol or ibuprofen as needed for fever or pain -Follow-up with PCP in the next 7 days. Call for appointment 2. ACUTE CYSTITIS WITHOUT HEMATURIA: - UA: Positive for nitrates/bacteria/WBC - Keflex bid for 7 days -Adequate hydration advised 3. METHAMPHETAMINE ABUSE: - UDS: Positive for methamphetamine -Advised to stop using methamphetamine 4. EAR WAX: - Advised to purchase over the counter Debrox for ear wax removal Departure Impression Primary Impression: Viral syndrome Additional Impressions: Methamphetamine abuse Acute cystitis without hematuria Impacted ear wax Disposition: HOME, SELF-CARE Condition: Stable Departure-Patient Inst. Referrals: SELFANDREW MD (PCP/Family) Primary Care Physician Patient Instructions: Ear Wax Impaction (DC), Urinary Tract Infection, Adult ED, Meth Mouth, Acute Cystitis (DC), Viral Upper Respiratory Infection, Adult (DC) Add. Discharge Instructions: -Advised Tylenol or ibuprofen as needed for fever or pain -Follow-up with PCP in the next 7 days. Call for appointment - Keflex bid for 7 days -Adequate hydration advised -Advised to stop using methamphetamine - Advised to purchase over the counter Debrox for ear wax removal All discharge instructions reviewed with patient and/or family. Voiced understanding. Scripts Carbamide Peroxide (Debrox) 6.5 % Drops 15 ML OT DAILY for 4 Days, #1 DROPS Prov: HARRISON SWAIN MD 09/03/22 Ondansetron (Ondansetron Odt) 4 Mg Tab.rapdis 4 MG SL Q6H PRN for NAUSEA/VOMITING for 4 Days, #15 TAB Prov: HARRISON SWAIN MD 09/03/22 Cephalexin (Cephalexin) 500 Mg Tablet 500 MG PO BID for 7 Days, #14 TAB Prov: HARRISON SWAIN MD 09/03/22 HARRISON SWAIN MD Sep 03, 2022 09:24
[2022-09-03] MEDS ORDERED: KETOROLAC 30 MG/ML VIAL IM ONE (09:30)
[2022-09-03 10:20] LABS: BILIRUBIN,URINE 1+ (NEGATIVE); CLARITY,URINE CLEAR; COLOR,URINE YELLOW; GLUCOSE, URINE (UA) NEGATIVE (NEGATIVE); KETONES,URINE 1+ (NEGATIVE); LEUKOCYTE ESTERASE ,URINE NEGATIVE (NEGATIVE); NITRITE,URINE POSITIVE (NEGATIVE); PROTEIN,URINE TRACE (NEGATIVE)
[2022-09-03 10:22] LABS: BACTERIA,URINE LARGE /HPF
[2022-09-03 10:30] LABS: AMPHETAMINE SCREEN, URINE NEGATIVE (NEGATIVE); BARBITURATE SCREEN URINE NEGATIVE (NEGATIVE); BENZODIAZEPINES SCREEN URINE NEGATIVE (NEGATIVE); CANNABINOID SCREEN, URINE NEGATIVE (NEGATIVE); COCAINE SCREEN URINE NEGATIVE (NEGATIVE); METHADONE STAT NEGATIVE (NEGATIVE); OPIATE SCREEN URINE NEGATIVE (NEGATIVE); OXYCODONE STAT NEGATIVE (NEGATIVE); PROPOXYPHENE STAT NEGATIVE (NEGATIVE); TRICYCLIC ANTIDEPRESSANTS SCRE POSITIVE (NEGATIVE)
[2022-09-03] MEDS ORDERED: ONDANSETRON 4 MG (ZOFRAN) ORAL DISSOLVE TAB PO STA (10:30)
[2022-09-03] MEDS ORDERED: ONDANSETRON 4 MG (ZOFRAN) ORAL DISSOLVE TAB ONE (10:33)
[2022-09-03] MEDS ORDERED: CEPH500T PO (10:41)
[2022-09-03] MEDS ORDERED: CARB15DR87 OT (10:41)
[2022-09-03] MEDS ORDERED: ONDA4TAB11 SL (10:41)
== END 2022-09-03 10:43 | disposition home or self-care (01) ==
LOC: EDUNIT# 09:08 → ER FS 09:10
DX: B34.9 Viral infection, unspecified (principal); F15.10 Other stimulant abuse, uncomplicated; N30.00 Acute cystitis without hematuria; H61.23 Impacted cerumen, bilateral; Z28.310 Unvaccinated for COVID-19; Z20.822 Contact with and (suspected) exposure to COVID-19
CPT/HCPCS: 80306; 81000; 87088; 87636; 99284

== ENCOUNTER 2022-09-11 08:07 | Day surgery (SDC) | payer MEDICARE, MEDICAID ==
[~2022-09-11] VITALS: Ht 160 cm; Wt 102.1 kg
[~2022-09-11 08:07] MED LIST changes: +CARB15DR87 OT
[2022-09-11] MEDS ORDERED: HURRICAINE EXT TUBE (BENZOCAINE) XX PRN (08:15)
[2022-09-11] MEDS ORDERED: LACTATED RINGERS 1,000 ML IV STA (08:15)
[2022-09-11 08:30] VITALS: BP 109/78
--- NOTE | 2022-09-11 08:30 | Progress Note-Pre Operative ---
Pre-Operative Progress Note Date of Available H&P: Aug 29, 2022 Date H&P Reviewed: Sep 11, 2022 Time H&P Reviewed: 08:24 History & Physical: H&P Reviewed, Patient Examed, No changes noted Pre-Operative Diagnosis: N/V, Hx of peptic ulcer JOSE ROGER DO Sep 11, 2022 08:30
[2022-09-11] MEDS ORDERED: MIDAZOLAM 2 MG/2 ML (VERSED) VIAL ONE (09:30)
[2022-09-11] MEDS ORDERED: PROPOFOL INJECTION 50 ML IV ONE (09:30)
[2022-09-11 09:50] VITALS: BP 94/50
--- NOTE | 2022-09-11 09:50 | Progress Note-Post Operative ---
Post-Operative Progess Note Surgeon (s)/Lawn Sprinkler Installer (s) Surgeon JOSE ROGER DO Lawn Sprinkler Installer: none Pre-Operative Diagnosis N/V, Hx of peptic ulcer Post-Operative Diagnosis Gastritis Gastric Polyp Hiatal hernia ??Gastroparesis Procedure & Operative Findings Date of Procedure 09/11/22 Procedure Performed/Findings EGD with bx EGD with hot snare polypectomy PROCEDURE NOTE: After informed consent was obtained, the patient was brought to the endoscopy suite, placed in bed in left lateral decubitus position. She was administered IV sedation by the LINING CEMENTER who then monitored vitals the entire time, heart rate, blood pressure and pulse ox and the scope was inserted down the mouth through the esophagus into the stomach. On the way down, noted some mild esophagitis, took a picture and pushed into the stomach. There was some retained food in the stomach, pushed past the antrum and into the duodenum. Duodenum looked good. At the pylorus I noted a polyp and took a picture of this. I then pulled back and did a biopsy of antrum. Next, I elected to remove the polyp with a snare polypectomy; with heat. I then retroflexed the scope, saw a small hiatal hernia, took a picture of this and then pulled the scope into the GE junction, took another picture of the hiatal hernia and then did a biopsy of the GE junction. Pushed the scope back into the stomach, suctioned all the air out of the stomach. At this point pulled the scope up the esophagus and out the mouth. The patient tolerated the procedure, and she recovered in endoscopy suite. Anesthesia Type IV sedation by LINING CEMENTER Estimated Blood Loss Estimated blood loss (mL): scant Specimens/Packing Specimens Removed antral bx GE jxn bx Gastric/Pyloric polyp JOSE ROGER DO Sep 11, 2022 09:50
--- NOTE | 2022-09-11 09:51 | Endoscopy Discharge Instruct ---
Endo Procedure/Findings Findings 1.: Polyp 2.: Gastritis 3.: Hiatal Hernia Discharge Instructions - Activity: You might feel a little sleepy until tomorrow. This is due to the medicine you received to relax you. Until tomorrow, you should: NOT drive a car, operate machinery or power tools. NOT drink any alcoholic beverages. NOT make any important decisions or sign importortant papers. Do not return to work until tomorrow, unless otherwise instructed. Resume previous activities tomorrow. Diet: Start by taking liquids. If you tolerate liquids, advance to solid food. 1.: EGD in 3 years Notify Physician - If you experience excessive bleeding, unusual abdominal pain, fever, or chest pain, contact your doctor immediately. Follow-Up: Other Follow up in my office in one week JOSE ROGER DO Sep 11, 2022 09:51
[2022-09-11 09:55] VITALS: BP 99/64
[2022-09-11 10:20] VITALS: BP 108/70
== END 2022-09-11 10:30 | disposition home or self-care (01) ==
LOC: ENDO 08:07
PROVIDERS: ATTEND Surgery
DX: K29.70 Gastritis, unspecified, without bleeding (principal); K31.7 Polyp of stomach and duodenum; K44.9 Diaphragmatic hernia without obstruction or gangrene; K21.00 Gastro-esophageal reflux disease with esophagitis, without bleeding; E66.9 Obesity, unspecified; K31.89 Other diseases of stomach and duodenum; Z87.891 Personal history of nicotine dependence; Z87.11 Personal history of peptic ulcer disease; Z79.899 Other long term (current) drug therapy; Z28.310 Unvaccinated for COVID-19; Z68.39 Body mass index [BMI] 39.0-39.9, adult

== ENCOUNTER 2022-10-12 10:18 | Emergency (ER) | payer MEDICARE, MEDICAID ==
[2022-10-12 10:27] VITALS: BP 120/100
--- NOTE | 2022-10-12 10:34 | ED Headache ---
General Chief Complaint: Head/Cervical Problems Stated Complaint: HEADACHE Nursing Triage Note: Patient has presented to ER with cc of her "normal headache". Her headache started about 0200 this morning. Patient has taken her excedrin migraine but it has not helped much. History of Present Illness Date Seen by Provider: October 12, 2022 Time Seen by Provider: 10:22 Initial Comments 42-year-old female with PMH of migraines since she was 13 years old, is here with complaints of a headache which began earlier today morning. Patient took Excedrin which did not help. Patient states that she gets headaches keith roximately every 2 and half months. Patient states that she drinks about 4 bottles of water a day, and is getting approximately 8 hours of sleep at night. Patient states that the headache is frontal and bilateral, and is associated with nausea. Patient reports also having sinusitis and sinus drainage over the past few days. Patient is not taking any medication for sinusitis at this time. Denies aura, vomiting, fever and chills, dizziness, photophobia, neck pain or stiffness, blurry vision. Allergies and Home Medications Allergies Coded Allergies: zolmitriptan (Verified Adverse Reaction, Unknown, 09/29/19) Patient Home Medication List Home Medication List Reviewed: Yes Aspirin/Acetaminophen/Caffeine (Excedrin Migraine Caplet) 1 Each Tablet, 2 EACH PO Q6-8HR PRN for Headache, (Reported) Entered as Reported by: NATE ZHU on 07/01/20 0950 Atogepant (Qulipta) 10 Mg Tablet, 10 MG PO, (Reported) Entered as Reported by: ARLETTE FRYE on 09/01/22 0931 Carbamide Peroxide (Debrox) 6.5 % Drops, 15 ML OT DAILY Prescribed by: HARRISON SWAIN MD on 09/03/22 1041 Cephalexin (Cephalexin) 500 Mg Tablet, 500 MG PO BID Prescribed by: HARRISON SWAIN MD on 09/03/22 1041 Cetirizine HCl (Cetirizine HCl) 10 Mg Tablet, 10 MG PO HS, (Reported) Entered as Reported by: DIXIE BROWN on 07/21/19 1516 Citalopram Hydrobromide (Citalopram HBr) 40 Mg Tablet, 40 MG PO HS, (Reported) Entered as Reported by: MALINDA KOCH on 04/02/19 0947 Ferrous Sulfate (Ferrous Sulfate) 325 Mg Tablet, 325 MG PO DAILY, (Reported) Entered as Reported by: DIXIE BROWN on 07/21/19 1516 Fluconazole (Diflucan) 100 Mg Tablet, 100 MG PO DAILY Prescribed by: DARCI ECHOLS on 03/08/22 1014 Levothyroxine Sodium (Levothyroxine Sodium) 88 Mcg Tablet, 88 MCG PO DAILY, (Reported) Entered as Reported by: DIXIE BROWN on 07/21/19 1516 Montelukast Sodium (Montelukast Sodium) 10 Mg Tablet, 10 MG PO HS, (Reported) Entered as Reported by: MALINDA KOCH on 04/02/19 0947 Ondansetron (Ondansetron Odt) 8 Mg Tab.rapdis, 8 MG PO Q8H PRN for NAUSEA/VOMITING-1ST LINE, (Reported) Entered as Reported by: NATE ZHU on 07/01/20 0950 Ondansetron (Ondansetron Odt) 4 Mg Tab.rapdis, 4 MG SL Q6H PRN for NAUSEA/VOMITING Prescribed by: HARRISON SWAIN MD on 09/03/22 1041 Pantoprazole Sodium (Protonix) 40 Mg Tablet.dr, 40 MG PO BID Prescribed by: OWEN VARELA on 07/13/20 1049 Potassium Chloride (Klor-Con 10) 10 Meq Tablet.er, 10 MEQ PO DAILY, (Reported) Entered as Reported by: NATE ZHU on 07/01/20 0950 Propranolol HCl (Propranolol HCl) 20 Mg Tablet, 20 MG PO BID, (Reported) Entered as Reported by: DIXIE BROWN on 07/21/19 1516 Sucralfate (Sucralfate) 1 Gram Tablet, 1 GM PO ACHS Prescribed by: MIGUELITO GUZMÁN on 08/17/22 1245 Topiramate (Topiramate) 100 Mg Tablet, 100 MG PO TID, (Reported) Entered as Reported by: MALINDA KOCH on 04/02/19 0947 Review of Systems Review of Systems Constitutional: no symptoms reported Eyes: No Symptoms Reported Ears, Nose, Mouth, Throat: see HPI Respiratory: no symptoms reported Cardiovascular: no symptoms reported Gastrointestinal: no symptoms reported Genitourinary: no symptoms reported Musculoskeletal: no symptoms reported Skin: no symptoms reported Psychiatric/Neurological: Headache Past Deoddzn-Illxwf-Cdslcq Hx Patient Social History Tobacco Use?: No Use of E-Cig and/or Vaping dev: No Substance use?: No Alcohol Use?: No Immunizations Up To Date First/Initial COVID19 Vaccinat: n/a Second COVID19 Vaccination Allen: n/a Third COVID19 Vaccination Date: n/a Seasonal Allergies Seasonal Allergies: Yes Past Medical History Surgery/Hospitalization HX: Migraine headaches, Pyloric Stenosis, Partial Gastrectomy with Bilroth Iprocedure 07/[address] 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 0oz. 72.466853vs; BMI Method:Stated General Appearance: WD/WN, no apparent distress HEENT: PERRL/EOMI, pharynx normal, other (Tenderness over the frontal sinuses bilaterally.) Neck: non-tender, full range of motion, supple, normal inspection Cardiovascular: regular rate, rhythm Respiratory: lungs clear Extremities: normal range of motion Psychiatric: alert, oriented x 3 Crainal Nerves: normal hearing, normal speech, PERRL Coordination/Gait: normal finger to nose, normal gait Motor/Sensory: no motor deficit, no sensory deficit Skin: normal color Lymphatic: no adenopathy Progress/Results/Core Measures Results/Orders My Orders Orders - HARRISON SWAIN MD Ketorolac Injection (Toradol Injection) (10/12/22 10:45) Diphenhydramine Injection (Benadryl Inje (10/12/22 10:45) Metoclopramide Injection (Reglan Injecti (10/12/22 11:00) Metoclopramide Injection (Reglan Injecti (10/12/22 10:52) Ketorolac Injection (Toradol Injection) (10/12/22 10:58) Medications Given in ED Current Medications Medications Dose Ordered Sig/Hernan Route Start Time Stop Time Status Last Admin Dose Admin Diphenhydramine HCl 25 mg ONCE ONCE IM 10/12/22 10:45 10/12/22 10:46 DC 10/12/22 11:03 25 MG Ketorolac Tromethamine 30 mg ONCE ONCE IM 10/12/22 10:45 10/12/22 10:46 DC 10/12/22 11:03 30 MG Metoclopramide HCl 10 mg STK-MED ONCE .ROUTE 10/12/22 10:52 10/12/22 10:57 DC 10/12/22 11:04 10 MG Vital Signs/I&O 10/12/22 10:27 Temp 36.5 Pulse 76 Resp 16 B/P (MAP) 120/100 (107) Pulse Ox 97 O2 Delivery Room Air Blood Pressure Mean: 107 Progress Progress Note : Progress Note 1. SINUSITIS HEADACHE - Toradol im/ Reglan im/Benadryl 25mg im STAT in ER. Pt's symptoms improved with this -Advised adequate hydration. Recommended Afrin nasal spray for 3 days, which is over the counter. -Follow-up with PCP and neurology within the next 7 days - No red flags for any acute critical neuro causes of headache -The patient was seen in the ED, and treated appropriately to presentation at a specific point in time. Patient is informed that there is a possibility that disease and illness can evolve and change in acuity rapidly or slowly after patient is discharged from the ER. Precautionary advice given to the patient for immediate return to ER if symptoms worsen or do not resolve, and to seek emergency care sooner rather than later. Pt also advised on the importance of PCP follow up and compliance with management and follow up plan with PCP and/or specialist, as this is part of the management plan. Pt verbally expressed understanding. Departure Impression Primary Impression: Sinus headache Disposition: HOME, SELF-CARE Condition: Improved Departure-Patient Inst. Referrals: SELF,ANDREW BOLIVAR (PCP) Primary Care Physician Patient Instructions: Migraines (DC), Sinus Headache (DC), Home Headache Remedies Add. Discharge Instructions: -Advised adequate hydration. Advised sleep hygiene. Recommended Afrin nasal spray for 3 days, which is over the counter. -Follow-up with PCP and neurology within the next 7 days All discharge instructions reviewed with patient and/or family. Voiced understanding. HARRISON SWAIN MD October 12, 2022 10:34
[2022-10-12] MEDS ORDERED: PROMETHAZINE INJ 25 MG/ML (PHENERGAN) AMP IM ONE (10:45)
[2022-10-12] MEDS ORDERED: diphenhydrAMINE 50 MG/ML INJ (BENADRYL) IM ONE (10:45)
[2022-10-12] MEDS ORDERED: KETOROLAC 15 MG/ML VIAL IM ONE (10:45)
[2022-10-12] MEDS ORDERED: METOCLOPRAMIDE INJ 10 MG/2 ML (REGLAN) ONE (10:52)
[2022-10-12] MEDS ORDERED: KETOROLAC 15 MG/ML VIAL ONE (10:58)
[2022-10-12] MEDS ORDERED: METOCLOPRAMIDE INJ 10 MG/2 ML (REGLAN) IM ONE (11:00)
== END 2022-10-12 11:16 | disposition home or self-care (01) ==
LOC: EDUNIT# 10:18 → ER FS 10:20
DX: J32.1 Chronic frontal sinusitis (principal); Z28.310 Unvaccinated for COVID-19
CPT/HCPCS: 99284

== ENCOUNTER 2022-11-29 19:59 | Emergency (ER) | payer MEDICARE, MEDICAID ==
[~2022-11-29] VITALS: Ht 160 cm; Wt 100.5 kg
[~2022-11-29 19:59] MED LIST changes: +POTA-330 PO; -POTA-51 PO
[2022-11-29 20:05] VITALS: BP 136/86
[2022-11-29] MEDS ORDERED: METOCLOPRAMIDE INJ 10 MG/2 ML (REGLAN) IM STA (20:16)
[2022-11-29] MEDS ORDERED: KETOROLAC 30 MG/ML VIAL IM STA (20:16)
[2022-11-29] MEDS ORDERED: diphenhydrAMINE 50 MG/ML INJ (BENADRYL) IM STA (20:16)
--- NOTE | 2022-11-29 20:33 | ED Headache ---
General Chief Complaint: Head/Cervical Problems Stated Complaint: MIGRAINE Nursing Triage Note: Pt presents with c/o migraine headache that started at approx 1400 today. She states she took advile migraine and an over the counter "dizzy pill" without relief. Source: patient History of Present Illness Date Seen by Provider: Nov 29, 2022 Time Seen by Provider: 20:00 Initial Comments 42-year-old female well-known to myself in the emergency department for recur rent episodes of migraine headache. She states this current headache started around 2 PM and woke her up from sleep. She denies any acute head trauma. She had tried taking her home medications without any improvement. She has had nausea and dry heaves with nausea vomiting. She is following with the neurology specialist for migraines and states that she has gotten relief of the migraine with getting injections at urgent care and here in the ED. She reports that the last time she had gone to urgent care they had only given her 2 shots instead of the 3 that she normally gets here in the ED. She denies having any abnormal symptoms with her headache and states it feels like her typical migraine headache. It is across her forehead and frontal scalp. She denies fever, chills, neck pain. Timing/Duration: 4-6 hours Severity/Quality: severe Location: frontal Prior Headaches/Recent Trauma: frequent headaches, chronic headaches Modifying Factors: worse with exposure to light Associated Symptoms: No confusion, No fatigue, No facial pain, No fever/chills, No flushing, No loss of consciousness; nausea/vomiting (dry heaves); No nasal congestion, No nasal drainage, No numbness in legs/feet, No rash, No seizures, No sinus infection, No stiff neck, No vision changes, No weakness Allergies and Home Medications Allergies Coded Allergies: zolmitriptan (Verified Adverse Reaction, Unknown, 09/29/19) Patient Home Medication List Home Medication List Reviewed: Yes Aspirin/Acetaminophen/Caffeine (Excedrin Migraine Caplet) 1 Each Tablet, 2 EACH PO Q6-8HR PRN for Headache, (Reported) Entered as Reported by: NATE ZHU on 07/01/20 0950 Atogepant (Qulipta) 10 Mg Tablet, 10 MG PO, (Reported) Entered as Reported by: ARLETTE FRYE on 09/01/22 0931 Carbamide Peroxide (Debrox) 6.5 % Drops, 15 ML OT DAILY Prescribed by: HARRISON SWAIN MD on 09/03/22 1041 Cephalexin (Cephalexin) 500 Mg Tablet, 500 MG PO BID Prescribed by: HARRISON SWAIN MD on 09/03/22 1041 Cetirizine HCl (Cetirizine HCl) 10 Mg Tablet, 10 MG PO HS, (Reported) Entered as Reported by: DIXIE BROWN on 07/21/19 1516 Citalopram Hydrobromide (Citalopram HBr) 40 Mg Tablet, 40 MG PO HS, (Reported) Entered as Reported by: MALINDA KOCH on 04/02/19 0947 Ferrous Sulfate (Ferrous Sulfate) 325 Mg Tablet, 325 MG PO DAILY, (Reported) Entered as Reported by: DIXIE BROWN on 07/21/19 1516 Fluconazole (Diflucan) 100 Mg Tablet, 100 MG PO DAILY Prescribed by: DARCI ECHOLS on 03/08/22 1014 Levothyroxine Sodium (Levothyroxine Sodium) 88 Mcg Tablet, 88 MCG PO DAILY, (Reported) Entered as Reported by: DIXIE BROWN on 07/21/19 1516 Montelukast Sodium (Montelukast Sodium) 10 Mg Tablet, 10 MG PO HS, (Reported) Entered as Reported by: MALINDA KOCH on 04/02/19 0947 Ondansetron (Ondansetron Odt) 8 Mg Tab.rapdis, 8 MG PO Q8H PRN for NAUSEA/VOMITING-1ST LINE, (Reported) Entered as Reported by: NATE ZHU on 07/01/20 0950 Ondansetron (Ondansetron Odt) 4 Mg Tab.rapdis, 4 MG SL Q6H PRN for NAUSEA/VOMITING Prescribed by: HARRISON SWAIN MD on 09/03/22 1041 Pantoprazole Sodium (Protonix) 40 Mg Tablet.dr, 40 MG PO BID Prescribed by: OWEN VARELA on 07/13/20 1049 Potassium Chloride (Klor-Con 10) 10 Meq Tablet.er, 10 MEQ PO DAILY, (Reported) Entered as Reported by: NATE ZHU on 07/01/20 0950 Propranolol HCl (Propranolol HCl) 20 Mg Tablet, 20 MG PO BID, (Reported) Entered as Reported by: DIXIE BROWN on 07/21/19 1516 Sucralfate (Sucralfate) 1 Gram Tablet, 1 GM PO ACHS Prescribed by: MIGUELITO GUZMÁN on 08/17/22 1245 Topiramate (Topiramate) 100 Mg Tablet, 100 MG PO TID, (Reported) Entered as Reported by: MALINDA KOCH on 04/02/19 0947 Review of Systems Review of Systems Constitutional: No chills, No dizziness, No fever Eyes: Denies Blurred Vision; Photophobia; Denies Vision Changes Ears, Nose, Mouth, Throat: denies ear pain, denies ear discharge, denies nose pain, denies nose discharge, denies epistaxis Respiratory: No cough, No short of breath Cardiovascular: No chest pain Gastrointestinal: nausea; No vomiting (dry heaves) Genitourinary: No dysuria Musculoskeletal: No neck pain Skin: No rash Psychiatric/Neurological: Headache Past Gwraptt-Gkaqcg-Gtlgqv Hx Immunizations Up To Date Influenza Vaccine Up-to-Date: No; Not Current First/Initial COVID19 Vaccinat: n/a Second COVID19 Vaccination Allen: n/a Third COVID19 Vaccination Date: n/a Seasonal Allergies Seasonal Allergies: Yes Past Medical History Surgery/Hospitalization HX: Migraine headaches, Pyloric Stenosis, Partial Gastrectomy with Bilroth Iprocedure 07/[address] 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 0oz. 72.386912uq; 39.00 BMI Method:Stated General Appearance: no apparent distress HEENT: PERRL/EOMI, normal ENT inspection, TMs normal, pharynx normal Neck: non-tender, full range of motion, supple, normal inspection Cardiovascular: normal peripheral pulses, regular rate, rhythm Respiratory: chest non-tender, lungs clear, normal breath sounds Gastrointestinal: normal bowel sounds, non tender, soft, no pulsatile mass Extremities: normal range of motion, non-tender, normal capillary refill Psychiatric: alert, oriented x 3 Crainal Nerves: normal hearing, normal speech, PERRL Coordination/Gait: normal gait Motor/Sensory: no motor deficit, no sensory deficit Skin: warm/dry; No rash Progress/Results/Core Measures Results/Orders My Orders Orders - MIGUELITO GUZMÁN MD Ketorolac Injection (Toradol Injection) (11/29/22 20:16) Diphenhydramine Injection (Benadryl Inje (11/29/22 20:16) Metoclopramide Injection (Reglan Injecti (11/29/22 20:16) Vital Signs/I&O 11/29/22 20:05 Temp 36.4 Pulse 67 Resp 18 B/P (MAP) 136/86 (103) Blood Pressure Mean: 103 Progress Progress Note : Progress Note With patient reporting that she has normal migraine symptoms and feels like her typical migraine without any new or different symptoms will try treating with IM injections. Previously she had received Benadryl, Toradol, Reglan. She states that at urgent care they had only used the Toradol and Reglan and that she had not gotten the Benadryl. She wanted to try just the 2 shots instead of 3. She plans to follow-up with her primary care as well as specialist. Allowed to go home and rest in cool dark room and continue home medications. Departure Impression Primary Impression: Migraine headache without aura Qualified Codes: G43.009 - Migraine without aura, not intractable, without status migrainosus Disposition: HOME, SELF-CARE Condition: Stable Departure-Patient Inst. Decision time for Depature: 20:32 Referrals: ANDREW DONAHUE MD (PCP/Family) Primary Care Physician Patient Instructions: Home Headache Remedies Add. Discharge Instructions: Continue on your home medications. Continue to follow-up with your specialist about your migraine headaches. All discharge instructions reviewed with patient and/or family. Voiced understanding. MIGUELITO GUZMÁN MD Nov 29, 2022 20:32
== END 2022-11-29 20:39 | disposition home or self-care (01) ==
LOC: EDUNIT# 19:59 → ER FS 20:00
DX: G43.009 Migraine without aura, not intractable, without status migrainosus (principal)
CPT/HCPCS: 99284

== ENCOUNTER 2022-12-08 19:01 | Emergency (ER) | payer MEDICARE, MEDICAID ==
[~2022-12-08] VITALS: Ht 160 cm; Wt 100.0 kg
[2022-12-08 19:11] VITALS: BP 102/71
--- NOTE | 2022-12-08 19:23 | ED Fall/Injury ---
General Chief Complaint: Trauma-Non Activation Stated Complaint: TWISTED ANKLE/CUTS ON FACE Nursing Triage Note: Pt presents via EMS with c/o Rt wrist and hand pain, and laceration to L cheek from glasses. Pt reports she fell when she tripped in a pot hole, denies ankle pain History of Present Illness Date Seen by Provider: Dec 08, 2022 Time Seen by Provider: 19:11 Initial Comments 42-year-old female is here with complaints of having a fall today evening resulting in right wrist pain and left cheek laceration. Denies head strike, dizziness, headache, LOC, nausea and vomiting. Allergies and Home Medications Allergies Coded Allergies: zolmitriptan (Verified Adverse Reaction, Unknown, 09/29/19) Patient Home Medication List Home Medication List Reviewed: Yes Aspirin/Acetaminophen/Caffeine (Excedrin Migraine Caplet) 1 Each Tablet, 2 EACH PO Q6-8HR PRN for Headache, (Reported) Entered as Reported by: NATE ZHU on 07/01/20 0950 Atogepant (Qulipta) 10 Mg Tablet, 10 MG PO, (Reported) Entered as Reported by: ARLETTE FRYE on 09/01/22 0931 Carbamide Peroxide (Debrox) 6.5 % Drops, 15 ML OT DAILY Prescribed by: HARRISON SWAIN MD on 09/03/22 1041 Cephalexin (Cephalexin) 500 Mg Tablet, 500 MG PO BID Prescribed by: HARRISON SWAIN MD on 09/03/22 1041 Cetirizine HCl (Cetirizine HCl) 10 Mg Tablet, 10 MG PO HS, (Reported) Entered as Reported by: DIXIE BROWN on 07/21/19 1516 Citalopram Hydrobromide (Citalopram HBr) 40 Mg Tablet, 40 MG PO HS, (Reported) Entered as Reported by: MALINDA KOCH on 04/02/19 0947 Ferrous Sulfate (Ferrous Sulfate) 325 Mg Tablet, 325 MG PO DAILY, (Reported) Entered as Reported by: DIXIE BROWN on 07/21/19 1516 Fluconazole (Diflucan) 100 Mg Tablet, 100 MG PO DAILY Prescribed by: DARCI ECHOLS on 03/08/22 1014 Levothyroxine Sodium (Levothyroxine Sodium) 88 Mcg Tablet, 88 MCG PO DAILY, (Reported) Entered as Reported by: DIXIE BROWN on 07/21/19 1516 Montelukast Sodium (Montelukast Sodium) 10 Mg Tablet, 10 MG PO HS, (Reported) Entered as Reported by: MALINDA KOCH on 04/02/19 0947 Ondansetron (Ondansetron Odt) 8 Mg Tab.rapdis, 8 MG PO Q8H PRN for NAUSEA/VOMITING-1ST LINE, (Reported) Entered as Reported by: NATE ZHU on 07/01/20 0950 Ondansetron (Ondansetron Odt) 4 Mg Tab.rapdis, 4 MG SL Q6H PRN for NAUSEA/VOMITING Prescribed by: HARRISON SWAIN MD on 09/03/22 1041 Pantoprazole Sodium (Protonix) 40 Mg Tablet.dr, 40 MG PO BID Prescribed by: OWEN VARELA on 07/13/20 1049 Potassium Chloride (Klor-Con 10) 10 Meq Tablet.er, 10 MEQ PO DAILY, (Reported) Entered as Reported by: NATE ZHU on 07/01/20 0950 Propranolol HCl (Propranolol HCl) 20 Mg Tablet, 20 MG PO BID, (Reported) Entered as Reported by: DIXIE BROWN on 07/21/19 1516 Sucralfate (Sucralfate) 1 Gram Tablet, 1 GM PO ACHS Prescribed by: MIGUELITO GUZMÁN on 08/17/22 1245 Topiramate (Topiramate) 100 Mg Tablet, 100 MG PO TID, (Reported) Entered as Reported by: MALINDA KOCH on 04/02/19 0947 Review of Systems Review of Systems Constitutional: no symptoms reported Eyes: No Symptoms Reported Ears, Nose, Mouth, Throat: see HPI Respiratory: no symptoms reported Cardiovascular: no symptoms reported Gastrointestinal: no symptoms reported Genitourinary: no symptoms reported Musculoskeletal: see HPI, joint pain Skin: see HPI, other (Face laceration) Psychiatric/Neurological: No Symptoms Reported Past Tehwxyc-Yheetr-Jkklbg Hx Immunizations Up To Date Influenza Vaccine Up-to-Date: No; Not Current First/Initial COVID19 Vaccinat: n/a Second COVID19 Vaccination Allen: n/a Third COVID19 Vaccination Date: n/a Seasonal Allergies Seasonal Allergies: Yes Past Medical History Surgery/Hospitalization HX: Migraine headaches, Pyloric Stenosis, Partial Gastrectomy with Bilroth Iprocedure 07/[address] 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 0oz. 72.858247gm; 39.00 BMI Method:Stated General Appearance: WD/WN, no apparent distress, obese HEENT: PERRL/EOMI, normal ENT inspection, TMs normal Neck: non-tender, full range of motion, supple, normal inspection Extremities: normal range of motion, normal inspection, other (Right wrist: No obvious deformity, very minimal swelling, no ecchymosis. N/V bundle intact. Tenderness to radial side of wrist on palpation. ROM seems to be unrestricted and patient is able to move her wrist in all directions as well.) Neurologic/Psychiatric: no motor/sensory deficits, alert, oriented x 3 Skin: normal color, other (1st wound by left eyebrow: 0.25cm, and epidermal layer only, no active bleeding. -2nd laceration on left maxillary area of cheek: 1cm, curved, superficial, skin missing, unable to suture, but very shallow laceration and does not need suturing anyway. - 3rd laceration is right under that on the left maxillary area as well and is 2.25 cm long, curved, extending through epidermal and dermal layers, mild bleeding) [place] Coma Score Best Eye Response: (4) Open Spontaneously Best Verbal Response: (5) Oriented Best Motor Response: (6) Obeys Commands Aleyda Total: 15 Procedures/Interventions Wound Location: Face (Left cheek) Wound Length (cm): 2.2 Wound's Depth, Shape: superficial Wound Explored: clean Irrigated w/ Saline (ccs): 50 Anesthesia: 1% Lidocaine Volume Anesthetic (ccs): 5 Suture: Ethlion Suture Size: 5-0 Number of Sutures: 5 Sterile Dressing Applied?: Yes Progress/Results/Core Measures Results/Orders My Orders Orders - HARRISON SWAIN MD Wrist 3 View Right (12/08/22 19:24) Lidocaine 1% Inj 20 Ml (Xylocaine 1% Inj (12/08/22 20:34) Vital Signs/I&O 12/08/22 19:11 Temp 36.0 Pulse 81 Resp 16 B/P (MAP) 102/71 (81) Blood Pressure Mean: 81 Progress Progress Note : Progress Note 1. RIGHT DISTAL RADIAL FRACTURE: - XR RIGHT WRIST: Comminuted partially impacted intra-articular fracture of the distal radius. - Sugar tong splint applied in ER with sling - Advised ice application and ibuprofen as needed for pain - Follow up with Ortho in the next 3 to 7 days: Dr. [facility]. Call to make appointment. -The patient was seen in the ED, and treated appropriately to presentation at a specific point in time. Patient is informed that there is a possibility that disease and illness can evolve and change in acuity rapidly or slowly after patient is discharged from the ER. Precautionary advice given to the patient for immediate return to ER if symptoms worsen or do not resolve, and to seek emergency care sooner rather than later. Pt also advised on the importance of PCP follow up and compliance with management and follow up plan with PCP and/or specialist, as this is part of the management plan. Pt verbally expressed understanding. 2. LEFT CHEEK LACERATIONs: - Wound irrigated with sterile water - 1st wound by left eyebrow: 0.25cm, dermabond application - 2nd laceration on leftmaxillary area of cheek: 1cm, curved, superficial, skin missing, unable to suture, but very shallow laceration and does not need suturing anyway - 3rd laceration is right under that on the left maxillary area as well and is 2.25 cm long, curved, and 5 interrupted sutures placed - Toradol im STAT - Wound care instructions given - Take home pack of Percocet to be taken every 6 hours for severe pain -Advised blny-cpx-etigddx Aleve (naproxen), 440 mg capsules every 12 hours as needed for pain. Also can use extra strength Tylenol 650 mg every 4 hours for breakthrough pain. -Ice application advised Diagnostic Imaging Diagonstic Imaging: Xray Plain Films/CT/US/NM/MRI: other Comments [facility] [place] NAME: MITCH ECHOLS [facility] REC#: [id number] PT STATUS: REG ER : 1980 PHYSICIAN: HARRISON SWAIN MD ADMIT DATE: 12/08/22/ER FS Draft Date of Exam:12/08/22 WRIST 3 VIEW RIGHT INDICATION: Right wrist pain post injury AP, oblique, and lateral views of the right wrist are obtained at 7:32 PM. There is a comminuted intra-articular fracture of the distal radius with some impaction. Remaining structures are intact. There is no erosive bony lesion. IMPRESSION: Comminuted partially impacted intra-articular fracture of the distal radius as above. Dictated on workstation # [id number] Dict: 12/08/221934 Trans: 12/08/221943 [facility] [id number] Interpreted by: AUSTEN JUSTICE MD Electronically signed by: Departure Impression Primary Impression: Laceration of left cheek Qualified Codes: S01.412A - Laceration without foreign body of left cheek and temporomandibular area, initial encounter Additional Impressions: Fall Qualified Codes: W19.XXXA - Unspecified fall, initial encounter Fracture of right distal radius Qualified Codes: S52.501A - Unspecified fracture of the lower end of right radius, initial encounter for closed fracture Disposition: 01 HOME, SELF-CARE Condition: Improved Departure-Patient Inst. Referrals: SELF,ANDREW BOLIVAR (PCP/Family) Primary Care Physician BJ HERRING MD Patient Instructions: Laceration Repair With Stitches ED, Skin glue for minor cuts, Radius Fracture (DC), Wound Care Add. Discharge Instructions: - Sugar tong splint applied in ER with sling - Advised ice application and ibuprofen as needed for pain - Follow up with Ortho in the next 3 to 7 days: Dr. Herring's clinic. Call to make appointment. - Wound care instructions given - Take home pack of Percocet to be taken every 6 hours for severe pain -Advised yadt-hhd-hjnojas Aleve (naproxen), 440 mg capsules every 12 hours as needed for pain. Also can use extra strength Tylenol 650 mg every 4 hours for breakthrough pain. -Ice application advised All discharge instructions reviewed with patient and/or family. Voiced understanding. HARRISON SWAIN MD Dec 08, 2022 19:23
--- NOTE | 2022-12-08 19:44 | Diagnostic Imaging Report ---
INDICATION: Right wrist pain post injury AP, oblique, and lateral views of the right wrist are obtained at 7:32 PM. There is a comminuted intra-articular fracture of the distal radius with some impaction. Remaining structures are intact. There is no erosive bony lesion. IMPRESSION: Comminuted partially impacted intra-articular fracture of the distal radius as above. Dictated by: Dictated on workstation # [id number]
[2022-12-08] MEDS ORDERED: LIDOCAINE 1% INJ 20 ML VIAL ONE (20:34)
[2022-12-08] MEDS ORDERED: KETOROLAC 30 MG/ML VIAL IM ONE (21:00)
[2022-12-08] MEDS ORDERED: RX-OXYCODONE/APAP 5-325 MG #4 TAB PK PO PRN (21:00)
[2022-12-08] MEDS ORDERED: RX-OXYCODONE/APAP 5-325 MG #4 TAB PK PO ONE (21:06)
[2022-12-08] MEDS ORDERED: KETOROLAC 30 MG/ML VIAL ONE (21:06)
== END 2022-12-08 21:20 | disposition home or self-care (01) ==
LOC: EDUNIT# 19:01 → ER FS 19:04
DX: S52.571A Other intraarticular fracture of lower end of right radius, initial encounter for closed fracture (principal); S01.412A Laceration without foreign body of left cheek and temporomandibular area, initial encounter; E66.9 Obesity, unspecified; Z68.39 Body mass index [BMI] 39.0-39.9, adult; Z28.310 Unvaccinated for COVID-19; W01.110A Fall on same level from slipping, tripping and stumbling with subsequent striking against sharp glass, initial encounter; X50.1XXA Overexertion from prolonged static or awkward postures, initial encounter
CPT/HCPCS: 12011; 73110

== ENCOUNTER 2022-12-15 10:56 | Emergency (ER) | payer MEDICARE, MEDICAID ==
[~2022-12-15] VITALS: Ht 160 cm; Wt 100.0 kg
[2022-12-15 11:04] VITALS: BP 132/95
== END 2022-12-15 11:04 | disposition home or self-care (01) ==
LOC: EDUNIT# 10:56 → ER FS 10:57
DX: Z48.02 Encounter for removal of sutures (principal)

== ENCOUNTER 2023-03-27 10:34 | Emergency (ER) | payer MEDICARE, MEDICAID ==
[~2023-03-27] VITALS: Ht 160 cm; Wt 97.0 kg
[2023-03-27 10:37] VITALS: BP 135/88
--- NOTE | 2023-03-27 10:52 | ED General ---
General Chief Complaint: Dizziness/Syncope Stated Complaint: DIZZY; LIGHT-HEADED Nursing Triage Note: ARRIVED VIA EMS FROM HOME WITH COMPLAINTS OF DIZZINESS, LIGHT HEADED, HEADACHE, AND NAUSEA. SEEN DR DONAHUE YESTERDAY AND GIVEN AN UNKNOWN MED. ZOFRAN IV GIVEN IN ROUTE. PT ALSO COMPLAINS OF A COUGH STARTING THIS AM. History of Present Illness Date Seen by Provider: Mar 27, 2023 Time Seen by Provider: 10:52 Initial Comments 43-year-old female with PMH of migraine, is here with complaints of migraine headache for which she went to the clinic yesterday and received a Toradol injection. Patient has had associated nausea and vomiting and photophobia. Patient has not been able to eat anything since lunch yesterday since she was feeling extremely nauseated. Patient is here today because she still has a headache and her nausea and vomiting has not improved, and she also developed some lightheadedness today morning when she woke up. Patient was brought in by EMS and was given Zofran in route. Denies fever and chills, neck pain or neck stiffness, blurry vision, gait abnormality. Allergies and Home Medications Allergies Coded Allergies: zolmitriptan (Verified Adverse Reaction, Unknown, 09/29/19) Patient Home Medication List Home Medication List Reviewed: Yes Aspirin/Acetaminophen/Caffeine (Excedrin Migraine Caplet) 1 Each Tablet, 2 EACH PO Q6-8HR PRN for Headache, (Reported) Entered as Reported by: NATE ZHU on 07/01/20 0950 Atogepant (Qulipta) 10 Mg Tablet, 10 MG PO, (Reported) Entered as Reported by: ARLETTE FRYE on 09/01/22 0931 Carbamide Peroxide (Debrox) 6.5 % Drops, 15 ML OT DAILY Prescribed by: HARRISON SWAIN MD on 09/03/22 1041 Cephalexin (Cephalexin) 500 Mg Tablet, 500 MG PO BID Prescribed by: HARRISON SWAIN MD on 09/03/22 1041 Cetirizine HCl (Cetirizine HCl) 10 Mg Tablet, 10 MG PO HS, (Reported) Entered as Reported by: DIXIE BROWN on 07/21/19 1516 Citalopram Hydrobromide (Citalopram HBr) 40 Mg Tablet, 40 MG PO HS, (Reported) Entered as Reported by: MALINDA KOCH on 04/02/19 0947 Ferrous Sulfate (Ferrous Sulfate) 325 Mg Tablet, 325 MG PO DAILY, (Reported) Entered as Reported by: DIXIE BROWN on 07/21/19 1516 Fluconazole (Diflucan) 100 Mg Tablet, 100 MG PO DAILY Prescribed by: DARCI ECHOLS on 03/08/22 1014 Levothyroxine Sodium (Levothyroxine Sodium) 88 Mcg Tablet, 88 MCG PO DAILY, (Reported) Entered as Reported by: DIXIE BROWN on 07/21/19 1516 Montelukast Sodium (Montelukast Sodium) 10 Mg Tablet, 10 MG PO HS, (Reported) Entered as Reported by: MALINDA KOCH on 04/02/19 0947 Ondansetron (Ondansetron Odt) 8 Mg Tab.rapdis, 8 MG PO Q8H PRN for NAUSEA/VOMITING-1ST LINE, (Reported) Entered as Reported by: NATE ZHU on 07/01/20 0950 Ondansetron (Ondansetron Odt) 4 Mg Tab.rapdis, 4 MG SL Q6H PRN for NAUSEA/VOMITING Prescribed by: HARRISON SWAIN MD on 09/03/22 1041 Pantoprazole Sodium (Protonix) 40 Mg Tablet.dr, 40 MG PO BID Prescribed by: OWEN VARELA on 07/13/20 1049 Potassium Chloride (Klor-Con 10) 10 Meq Tablet.er, 10 MEQ PO DAILY, (Reported) Entered as Reported by: NATE ZHU on 07/01/20 0950 Propranolol HCl (Propranolol HCl) 20 Mg Tablet, 20 MG PO BID, (Reported) Entered as Reported by: DIXIE BROWN on 07/21/19 1516 Sucralfate (Sucralfate) 1 Gram Tablet, 1 GM PO ACHS Prescribed by: MIGUELITO GUZMÁN on 08/17/22 1245 Topiramate (Topiramate) 100 Mg Tablet, 100 MG PO TID, (Reported) Entered as Reported by: MALINDA KOCH on 04/02/19 0947 Review of Systems Review of Systems Constitutional: dizziness EENTM: no symptoms reported Respiratory: no symptoms reported Cardiovascular: no symptoms reported Gastrointestinal: nausea, vomiting Genitourinary: no symptoms reported Musculoskeletal: no symptoms reported Skin: no symptoms reported Psychiatric/Neurological: Headache Hematologic/Lymphatic: No Symptoms Reported Immunological/Allergic: no symptoms reported Past Ekgejrl-Wpuw[place]-Kxdoms Hx Patient Social History Tobacco Use?: No Substance use?: No Alcohol Use?: No Immunizations Up To Date First/Initial COVID19 Vaccinat: n/a Second COVID19 Vaccination Allen: n/a Third COVID19 Vaccination Date: n/a Seasonal Allergies Seasonal Allergies: Yes Past Medical History Surgery/Hospitalization HX: Migraine headaches, Pyloric Stenosis, Partial Gastrectomy with Bilroth Iprocedure 07/[address] Mukherjee Surgeries: Yes Abdominal, Gallbladder, Hysterectomy Respiratory: No Currently Using CPAP: No Currently Using BIPAP: No Cardiac: No Neurological: Yes Headaches /Migraines [employer] History: Hysterectomy Genitourinary: No Gastrointestinal: Yes (chronic gastritis, pyloric stenosis) Ulcer Musculoskeletal: No Endocrine: Yes Hypothyroidsim HEENT: No Cancer: No Psychosocial: Yes Depression Integumentary: No Blood Disorders: No Family Medical History Cancer, Diabetes Physical Exam Vital Signs Vital Signs - First Documented 03/27/23 10:37 Temp 36.9 Pulse 72 Resp 16 B/P (MAP) 135/88 (104) Pulse Ox 97 Capillary Refill : Height, Weight, BMI Height: 5'3.00" Weight: 160lbs. 0oz. [id number]; 37.00 BMI Method:Stated General Appearance: No Apparent Distress, WD/WN HEENT: PERRL/EOMI, Normal ENT Inspection Neck: Full Range of Motion, Normal Inspection, Non Tender, Supple Respiratory: Lungs Clear, Normal Breath Sounds Cardiovascular: Regular Rate, Rhythm Gastrointestinal: Non Tender, Soft Neurologic/Psychiatric: Alert, Oriented x3, No Motor/Sensory Deficits, Normal Mood/Affect, transaction coordinator II-XII Norm as Tested Skin: Normal Color Procedures/Interventions Suture Size: 5-0 Progress/Results/Core Measures Suspected Sepsis SIRS Temperature: Pulse: 72 Respiratory Rate: 16 Blood Pressure 135 /88 Mean: 104 Results/Orders My Orders Orders - HARRISON SWAIN MD Ketorolac Injection (Ketorolac Injection (03/27/23 11:15) Ondansetron Injection (Ondansetron Inj (03/27/23 11:15) Diphenhydramine Injection (Diphenhydram (03/27/23 11:15) Medications Given in ED Current Medications Medications Dose Ordered Sig/Hernan Route Start Time Stop Time Status Last Admin Dose Admin Diphenhydramine HCl 25 mg ONCE ONCE IVP 03/27/23 11:15 03/27/23 11:16 DC 03/27/23 11:18 25 MG Ketorolac Tromethamine 15 mg ONCE ONCE IVP 03/27/23 11:15 03/27/23 11:16 DC 03/27/23 11:17 15 MG Ondansetron HCl 4 mg ONCE ONCE IVP 03/27/23 11:15 03/27/23 11:16 DC 03/27/23 11:17 4 MG Vital Signs/I&O 03/27/23 10:37 Temp 36.9 Pulse 72 Resp 16 B/P (MAP) 135/88 (104) Pulse Ox 97 Capillary Refill : Blood Pressure Mean: 104 Progress Note : Progress Note 1.MIGRAINE: - Pt was given Toradol iv/ Zofran iv/ Benadryl iv and pain is resolved - Pt wa given crackers and jello in the ER and she feels better. - All her symptoms were likely worsening due to not eatingsince yesterday lunch. -Adequate hydration advised, at least 8 glasses of water per day. -Advised ibuprofen 600 mg every 6 hours as needed for pain. If more pain relief is needed advised to take Tylenol 650 mg every 4 hours. -Follow-up with PCP within the next 7 days. -The patient was seen in the ED, and treated appropriately to presentation at a specific point in time. Patient is informed that there is a possibility that disease and illness can evolve and change in acuity rapidly or slowly after patient is discharged from the ER. Precautionary advice given to the patient for immediate return to ER if symptoms worsen or do not resolve, and to seek emergency care sooner rather than later. Pt also advised on the importance of PCP follow up and compliance with management and follow up plan with PCP and/or specialist, as this is part of the management plan. Pt verbally expressed understanding. Departure Impression Primary Impression: Migraine Disposition: HOME, SELF-CARE Condition: Improved Departure-Patient Inst. Referrals: SELF,ANDREW BOLIVAR (PCP/Family) Primary Care Physician Patient Instructions: Home Headache Remedies, Migraines (DC) Add. Discharge Instructions: -Adequate hydration advised, at least 8 glasses of water per day. -Eat 3 meals a day. -Advised ibuprofen 600 mg every 6 hours as needed for pain. If more pain relief is needed advised to take Tylenol 650 mg every 4 hours. -Follow-up with PCP within the next 7 days. All discharge instructions reviewed with patient and/or family. Voiced understanding. HARRISON SWAIN MD Mar 27, 2023 10:52
[2023-03-27] MEDS ORDERED: KETOROLAC INJ 15 MG/ML VIAL IVP ONE (11:15)
[2023-03-27] MEDS ORDERED: ONDANSETRON INJECTION 4 MG/2 ML (SDV) IVP ONE (11:15)
[2023-03-27] MEDS ORDERED: diphenhydrAMINE INJ 50 MG/ML VIAL IVP ONE (11:15)
[2023-03-27] MEDS ORDERED: ONDA4TAB11 SL (12:20)
[2023-03-27] MEDS ORDERED: METOCLOPRAMIDE INJ 10 MG/2 ML IVP ONE (12:45)
== END 2023-03-27 13:00 | disposition home or self-care (01) ==
LOC: EDUNIT# 10:34 → ER FS 10:35
DX: G43.909 Migraine, unspecified, not intractable, without status migrainosus (principal)
CPT/HCPCS: 96374; 96375; 99285